=== PATIENT | female | born 1945 | race Caucasian/White ===

== ENCOUNTER → 2017-12-24 13:57 | Outpatient (CLI) | payer MEDICARE, OTHER, SELFPAY ==
[2017-12-24 14:22] LABS: Hematocrit 39.6 % (37-47); Hemoglobin 12.6 g/dl (12.0-15.0); Mean Corp Hgb Conc 31.8 g/gl (32-36); Mean Corpuscular Hgb 31.4 pg (27.0-32.0); Mean Corpuscular Volume 98.8 fL (81-99); Mean Platelet Vol. 10.1 fl (6.2-12.0); Platelet Count 128 K/mm3 (150-450); RBC Distribution Width CV 14.3 % (11.6-14.6); RBC Distribution Width SD 51.6 fl (35.1-43.9); Red Blood Count 4.01 M/mm3 (4.2-5.4); White Blood Count 10.2 K/mm3 (4.4-11.0)
[2017-12-24 14:24] LABS: Scan Indicated on CBC? Y/N NO
[2017-12-24 14:30] LABS: Protein, Urine (Random) 16.4 mg/dL (<11.9); Protein:Creat Ratio 350 mg/g CRE (0-200)
[2017-12-24 14:52] LABS: Albumin, Serum 3.7 g/dL (3.2-5.0); BUN 35 mg/dL (7-18); BUN/Creat Ratio 19.4 RATIO (10-20); Calcium,Total 9.4 mg/dL (8.5-10.1); Chloride 102 mmol/L (98-107); EST Glomerular Filtration Rate 29 mL/min (>60); Est Glom Filt Rate - Afr Amer 35 mL/min (>60); Glucose 142 mg/dL (74-106); Phosphorus 3.1 mg/dL (2.5-4.9); Potassium 3.8 mmol/L (3.5-5.1); Sodium Level 140 mmol/L (136-145)
[2017-12-24 15:03] LABS: PTHIN 80.3 pg/mL (18.4-80.1); Vitamin D,25 Hydroxy 64.1 ng/mL (29.95-100.01)
== END ==
PROVIDERS: Family Provider Family Medicine; PCP Family Medicine; Visit Provider Internal Medicine Nephrology
DX: N18.3 Chronic kidney disease, stage 3 (moderate) (principal)
CPT/HCPCS: 36415; 80069; 82306; 82570; 83970; 84156; 85027

== ENCOUNTER 2018-06-09 04:29 | Emergency (ER) | payer MEDICARE, OTHER, SELFPAY ==
[2018-06-09 04:30] VITALS: BP 221/108; PULSE 55; RESP 16; TEMP 36.6; O2SAT 98; BMI 31.4
--- NOTE | 2018-06-09 05:03 | ED.VISSUMM ---
- ER Visit Summary Date of Service: 06/09/18 Chief Complaint: Nausea and mild abdominal pain History of Present Illness: The patient is a 73 F 3 of hypertension, renal insufficiency and CLL. Patient's had a prior appendectomy, cholecystectomy and hysterectomy. She states that she fell about a week ago primarily landing on her left hip. But since that time she has also had some mild upper abdominal discomfort associated with nausea. She denies any vomiting or diarrhea. She denies any dysuria. She denies any fever. She denies any black or bloody stools. She is on no blood thinners. Denies injuring her head on the fall. Denies any headache or neck pain. No chest pain. Physical Examination: Older female no acute distress. Initial blood pressure is elevated to 21/108. Afebrile. Pulse ox 90% on room air no signs of hypoxia. H EENT exam atraumatic. Pupils round reactive light. Normal speech. Neck nontender. No lymphadenopathy. Lungs clear to auscultation bilaterally. Heart regular rhythm rate about 60 no murmur. Chest wall nontender. Abdomen soft nondistended normal bowel sounds no peritoneal signs. No signs of trauma. She has mild epigastric tenderness. No Peck's or McBurney's point tenderness. Normal bowel sounds. No signs of abdominal trauma. Pelvic girdle intact. Patient is moving all 4 extremities. The neurovascular intact. There is no shortening or rotation of either hip. Neurologically she is awake and alert with no focal motor deficits. Test Results: CBC shows a white count 11.3. Hemoglobin 13. Platelet count of 130 patient has a history of low platelet counts. Chemistries unremarkable except a creatinine of 1.84. BUN of 41 consistent with dehydration. Gap of 11. Liver enzymes are normal. Lipase is normal at 314. CT abdomen and pelvis was obtained with IV contrast shows chronic pancreatic changes possibly consistent with chronic pancreatitis however she has never been diagnosed with pancreatitis. And has a normal lipase. Chronic renal cysts and renal atrophy. A calcified aorta. Really no acute processes. EKG shows atrial fibrillation with a heart rate of 45. She is on a beta-josh. Patient has never been told she has had A. fib. Troponin is normal. Emergency Department Course and Treatment: Patient will be treated with IV fluids and IV Zofran. Labs will be obtained. Treatment Plan: Patient is doing well on multiple repeat exams. Abdomen is benign. She denied discussed all of her test results. Her history is consistent with possibly a pancreatitis however she has never had and her lipase is normal I think that is extremely unlikely to be acute pancreatitis. She also has new onset or at least newly diagnosed A. fib however rate controlled due to her being on a beta-josh she can follow that up as an outpatient. Disposition: Discharge Impression: Acute abdominal pain with nausea of uncertain etiology Rule out chronic pancreatitis Atrial fibrillation not previously diagnosed History of CLL. This note was generated with [employer] dictation software. It may contain incorrect words, spelling, and punctuation that were not noted in review of the chart prior to signing ED Disposition - Plan for ED Patient: Chief Complaint: Nausea/Vomiting Referrals: Israel Bucio DO [Primary Care Provider] -
[2018-06-09] MEDS: 0.9% Normal Saline 1,000 ML 1000 ML IV (05:20)
[2018-06-09] MEDS: Ondansetron 4 MG/2 ML Vial IV (05:20)
[2018-06-09 05:37] LABS: Absolute Lymphocyte Count 5.41 X10^3/ul (0.83-4.51); Absolute Neutrophil Count 4.9 X10^3/uL (2.0-7.7); Basophil# 0.05 X10^3/uL; Basophil% 0.4 % (0-1); Differential Indicated SCAN CRITERIA MET; Eosinophil# 0.25 X10^3/uL; Eosinophils% 2.2 % (0-5); Hematocrit 41.2 % (37-47); Hemoglobin 13.4 g/dl (12.0-15.0); Lymphocyte # 5.41 X10^3/ul (4.0); Lymphocyte % 48.1 % (19-41); Mean Corp Hgb Conc 32.5 g/gl (32-36); Mean Corpuscular Hgb 32.7 pg (27.0-32.0); Mean Corpuscular Volume 100.5 fL (81-99); Mean Platelet Vol. 9.6 fl (6.2-12.0); Monocyte# 0.66 X10^3/uL; Monocyte% 5.9 % (0-10); Neutrophil # 4.85 X10^3/uL (2.7-7.7); Neutrophil % 43.1 % (47-70); POSITIVE COUNT NO; POSITIVE DIFFERENTIAL YES; POSITIVE MORPHOLOGY NO; Platelet Count 130 K/mm3 (150-450); RBC Distribution Width CV 13.8 % (11.6-14.6); RBC Distribution Width SD 50.4 fl (35.1-43.9); White Blood Count 11.3 K/mm3 (4.4-11.0)
[2018-06-09 06:01] LABS: Anisocytosis 1+; Macrocytosis 1+; Platelet Estimate SLT DEC (ADEQ)
[2018-06-09 06:04] LABS: AST(SGOT) 22 U/L (15-37); Alanine Aminotransfer ALT/SGPT 31 U/L (13-56); Albumin, Serum 3.6 g/dL (3.2-5.0); Alkaline Phosphatase 72 U/L (45-117); Anion Gap 11 (5-15); BUN 41 mg/dL (7-18); BUN/Creat Ratio 22.3 RATIO (10-20); Bilirubin, Direct 0.17 mg/dL (0.00-0.30); Calcium,Total 9.3 mg/dL (8.5-10.1); Chloride 103 mmol/L (98-107); Creatinine, Serum 1.84 mg/dL (0.55-1.02); EST Glomerular Filtration Rate 28 mL/min (>60); Est Glom Filt Rate - Afr Amer 34 mL/min (>60); Estimated Creatinine Clearance 25.69 ml/min; Globulin 3.4 g/dL (2.2-4.2); Glucose 127 mg/dL (74-106); Lipase 314 U/L (73-393); Potassium 3.6 mmol/L (3.5-5.1); Sodium Level 141 mmol/L (136-145)
--- NOTE | 2018-06-09 06:51 | ED.RN ---
DR DSOUZA NOTIFIED PT REQUESTING TO HAVE HER HEART CHECKED
[2018-06-09 07:29] VITALS: BP 194/70; PULSE 50; RESP 16; O2SAT 97
--- NOTE | 2018-06-09 07:45 | ED.DEP ---
ED Disposition - Plan for ED Patient: Disposition: Home or Assisted Living Chief Complaint: Nausea/Vomiting Instructions: ED Abdominal Pain Unkn Cause, ED Afib Prescriptions: Ondansetron [Zofran Odt] 4 mg PO Q4H PRN PRN #14 tab.rapdis PRN Reason: Nausea Referrals: Israel Bucio, [Primary Care Provider] - As soon as possible Additional Instructions: Call follow-up your primary care physician for further evaluation of this abdominal pain. We do not have a specific cause. You may need to see a media planner / buyer or have upper endoscopy performed. Zofran as needed for nausea. Incidentally we found that you have an abnormal heart rhythm: Atrial fibrillation. You can follow this up as an outpatient with Dr. Lloyd King 1 of [facility] splitting machine feeder. Continue your current medications.
--- NOTE | 2018-06-09 07:49 | DCINST.ED_ITS ---
ED Disposition - Plan for ED Patient: Disposition: Home or Assisted Living Chief Complaint: Nausea/Vomiting Instructions: ED Abdominal Pain Unkn Cause, ED Afib Prescriptions: Ondansetron [Zofran Odt] 4 mg PO Q4H PRN PRN #14 tab.rapdis PRN Reason: Nausea Referrals: Israel Bucio, [Primary Care Provider] - As soon as possible Additional Instructions: Call follow-up your primary care physician for further evaluation of this abdominal pain. We do not have a specific cause. You may need to see a distribution designer or have upper endoscopy performed. Zofran as needed for nausea. Incidentally we found that you have an abnormal heart rhythm: Atrial fibrillation. You can follow this up as an outpatient with Dr. Lloyd King 1 of [facility] stonemason supervisor. Continue your current medications.
[2018-06-09 08:01] VITALS: PULSE 49; RESP 16; O2SAT 97
[2018-06-10 15:08] LABS: Pathologist Review Reviewed
== END 2018-06-09 08:06 | disposition home or self-care (01) ==
PROVIDERS: Emergency Provider Emergency Medicine; Family Provider Family Medicine; PCP Family Medicine
DX: R10.13 Epigastric pain (principal); R11.0 Nausea; I48.91 Unspecified atrial fibrillation; I10 Essential (primary) hypertension; C91.10 Chronic lymphocytic leukemia of B-cell type not having achieved remission; N28.9 Disorder of kidney and ureter, unspecified; Z90.49 Acquired absence of other specified parts of digestive tract; Z90.710 Acquired absence of both cervix and uterus; Z79.899 Other long term (current) drug therapy
CPT/HCPCS: 71045; 74177; 80048; 80076; 83690; 84484; 85025; 93005; 96361; 96374; 99284; J7030; Q9967; A4216

== ENCOUNTER → 2018-07-31 08:43 | Outpatient (CLI) | payer MEDICARE, OTHER, SELFPAY ==
--- NOTE | 2018-07-31 08:47 | ECHOD_ITS ---
Reason For Study: Afib, Aflutter Procedure This was a 2D Doppler, Color Flow transthoracic echocardiogram. The exam was of fair technical quality due to diminished acoustic windows. Exam performed in department. Left Ventricle Normal LV size. Left ventricular systolic function is normal. The estimated ejection fraction is 60 %. Diastolic function is indeterminate. No regional wall motion abnormalities noted. Right Ventricle Normal RV size. Normal systolic function. Atria The left atrium is severely enlarged. The right atrium is moderately enlarged. No doppler evidence for ASD. Mitral Valve There is no mitral annular calcification. Mild diffuse mitral valve thickening. The mitral papillary muscle appears thickened and/or calcified. Moderate (2+) eccentric mitral valve insufficiency. Tricuspid Valve Normal tricuspid valve. Mild to moderate (1-2+) tricuspid valve insufficiency. Right ventricular systolic pressure estimated to be 36 mmHg. Aortic Valve Trisinus/trileaflet aortic valve. Mild focal aortic valve calcification. Pulmonic Valve The pulmonic valve is not well visualized. Trivial pulmonic valve insufficiency. Great Vessels Normal sized aortic root. Pericardium/Pleural No pericardial effusion. MMode/2D Measurements & Calculations LVIDd: 5.5 cm IVSd: 1.2 cm Ao root diam: 3.2 cm LVIDs: 3.4 cm LVPWd: 1.3 cm RVDd: 4.8 cm FS: 37.0 % LAV(MOD-bp): 159.9 ml LVAd ap4: 26.7 cm2 SV(MOD-sp4): 66.0 ml LAV(MOD-bp) Indexed: 80.1 ml/m2 EDV(MOD-sp4): 86.7 ml LAV(MOD-sp2): 160.6 ml EDV(sp4-el): 84.6 ml LAV(MOD-sp4): 150.5 ml LVAs ap4: 11.6 cm2 ESV(MOD-sp4): 20.7 ml ESV(sp4-el): 19.4 ml EF(MOD-sp4): 76.1 % EF(sp4-el): 77.0 % SV(sp4-el): 65.1 ml LA A4 area: 38.0 cm2 RA A4 area: 25.9 cm2 Doppler Measurements & Calculations MV E max emma: 86.3 cm/sec Ao V2 max: 143.7 cm/sec LV V1 max: 85.9 cm/sec Ao max P.3 mmHg LV V1 max P.0 mmHg Ao V2 mean: 93.4 cm/sec Ao mean P.9 mmHg Ao V2 VTI: 32.4 cm PA V2 max: 68.8 cm/sec TR max emma: 286.8 cm/sec TR max P.9 mmHg Interpretation Summary Left ventricular systolic function is normal. The estimated ejection fraction is 60 %. The left atrium is severely enlarged. The right atrium is moderately enlarged. Mild diffuse mitral valve thickening. The mitral papillary muscle appears thickened and/or calcified. Moderate (2+) eccentric mitral valve insufficiency. Mild to moderate (1-2+) tricuspid valve insufficiency. Mild focal aortic valve calcification. Trivial pulmonic valve insufficiency. Right ventricular systolic pressure estimated to be 36 mmHg. Diastolic function is indeterminate. Ordering Physician: Lloyd King Referring Physician: Israel Bucio Performed By: Abi Osullivan, SIMIN, RVT
== END ==
PROVIDERS: Family Provider Family Medicine; PCP Family Medicine; Referring Provider Internal Medicine Cardiovascular Disease; Visit Provider Internal Medicine Cardiovascular Disease
DX: I48.1 Persistent atrial fibrillation (principal)
CPT/HCPCS: 93306

== ENCOUNTER → 2018-08-11 16:22 | Outpatient (CLI) | payer MEDICARE, OTHER, SELFPAY ==
[2018-08-11 17:13] LABS: Prothrombin Time (Protime)PT. 13.2 SECONDS (11.7-14.9)
== END ==
PROVIDERS: Family Provider Family Medicine; PCP Family Medicine; Referring Provider Internal Medicine Cardiovascular Disease; Visit Provider Internal Medicine Cardiovascular Disease
DX: I48.91 Unspecified atrial fibrillation (principal)
CPT/HCPCS: 36415; 85610

== ENCOUNTER 2018-08-20 16:23 | Outpatient (RCR) | payer MEDICARE, OTHER, SELFPAY ==
[2018-08-20 17:46] LABS: International Normalized Ratio 1.2; Prothrombin Time (Protime)PT. 15.4 SECONDS (11.7-14.9)
== END 2018-08-20 18:00 | disposition home or self-care (01) ==
LOC: LAB 16:23
PROVIDERS: Family Provider Family Medicine; PCP Family Medicine; Referring Provider Internal Medicine Cardiovascular Disease; Visit Provider Internal Medicine Cardiovascular Disease
DX: I48.91 Unspecified atrial fibrillation (principal); I10 Essential (primary) hypertension; Z79.01 Long term (current) use of anticoagulants
CPT/HCPCS: 36415; 85610

== ENCOUNTER 2018-09-08 16:27 | Outpatient (RCR) | payer MEDICARE, OTHER, SELFPAY ==
[2018-08-31 11:28] LABS: International Normalized Ratio 1.4
[2018-09-08 17:22] LABS: International Normalized Ratio 1.4; Prothrombin Time (Protime)PT. 16.7 SECONDS (11.7-14.9)
== END 2018-09-25 10:19 | disposition home or self-care (01) ==
LOC: LAB 16:27
PROVIDERS: Family Provider Family Medicine; PCP Family Medicine; Referring Provider Internal Medicine Cardiovascular Disease; Visit Provider Internal Medicine Cardiovascular Disease
DX: I48.91 Unspecified atrial fibrillation (principal); I10 Essential (primary) hypertension; Z79.01 Long term (current) use of anticoagulants
CPT/HCPCS: 36415; 85610

== ENCOUNTER → 2018-09-30 15:16 | Outpatient (CLI) | payer MEDICARE, OTHER, SELFPAY ==
[2018-09-21 11:08] VITALS: BMI 30.6
[2018-09-30 15:43] LABS: International Normalized Ratio 1.3; Prothrombin Time (Protime)PT. 16.1 SECONDS (11.7-14.9)
== END ==
PROVIDERS: Family Provider Family Medicine; PCP Family Medicine; Referring Provider Internal Medicine Cardiovascular Disease; Visit Provider Internal Medicine Cardiovascular Disease
DX: I48.91 Unspecified atrial fibrillation (principal); I10 Essential (primary) hypertension; Z79.01 Long term (current) use of anticoagulants
CPT/HCPCS: 36415; 85610

== ENCOUNTER → 2018-10-17 11:36 | Outpatient (CLI) | payer MEDICARE, OTHER, SELFPAY ==
[2018-10-05 09:11] VITALS: BMI 30.6
[2018-10-17 12:15] LABS: Absolute Lymphocyte Count 3.93 X10^3/ul (0.83-4.51); Absolute Neutrophil Count 3.3 X10^3/uL (2.0-7.7); Basophil# 0.02 X10^3/uL; Basophil% 0.3 % (0-1); Eosinophils% 1.3 % (0-5); Hematocrit 35.8 % (37-47); Hemoglobin 11.6 g/dl (12.0-15.0); Lymphocyte # 3.93 X10^3/ul (4.0); Lymphocyte % 50.6 % (19-41); Mean Corp Hgb Conc 32.4 g/gl (32-36); Mean Corpuscular Hgb 31.8 pg (27.0-32.0); Mean Corpuscular Volume 98.1 fL (81-99); Mean Platelet Vol. 8.4 fl (6.2-12.0); Monocyte# 0.38 X10^3/uL; Monocyte% 4.9 % (0-10); Neutrophil # 3.32 X10^3/uL (2.7-7.7); Neutrophil % 42.8 % (47-70); Platelet Count 105 K/mm3 (150-450); RBC Distribution Width CV 14.1 % (11.6-14.6); RBC Distribution Width SD 50.3 fl (35.1-43.9); Red Blood Count 3.65 M/mm3 (4.2-5.4); White Blood Count 7.8 K/mm3 (4.4-11.0)
[2018-10-17 12:16] LABS: POSITIVE COUNT NO; POSITIVE DIFFERENTIAL NO; POSITIVE MORPHOLOGY NO
[2018-10-17 12:32] LABS: ALB/GLOB Ratio 1.2 RATIO (0.9-2.4); AST(SGOT) 32 U/L (15-37); Alanine Aminotransfer ALT/SGPT 31 U/L (13-56); Albumin, Serum 3.6 g/dL (3.2-5.0); Alkaline Phosphatase 68 U/L (45-117); Anion Gap 9 (5-15); BUN 42 mg/dL (7-18); BUN/Creat Ratio 23.3 RATIO (10-20); Calcium,Total 9.1 mg/dL (8.5-10.1); Chloride 104 mmol/L (98-107); EST Glomerular Filtration Rate 29 mL/min (>60); Est Glom Filt Rate - Afr Amer 35 mL/min (>60); Glucose 107 mg/dL (74-106); LDH 215 U/L (84-246); Potassium 3.8 mmol/L (3.5-5.1); Protein, Total 6.6 g/dL (6.4-8.2); Sodium Level 141 mmol/L (136-145); Uric Acid 7.8 mg/dL (2.6-6.0)
== END ==
PROVIDERS: Internal Medicine Medical Oncology; Family Provider Family Medicine; PCP Family Medicine; Referring Provider Internal Medicine Cardiovascular Disease; Visit Provider Internal Medicine Cardiovascular Disease
DX: C91.10 Chronic lymphocytic leukemia of B-cell type not having achieved remission (principal)
CPT/HCPCS: 80053; 83615; 84550; 85025

== ENCOUNTER → 2018-10-23 11:38 | Outpatient (CLI) | payer MEDICARE, OTHER, SELFPAY ==
[2018-10-05 09:11] VITALS: BMI 30.6
[2018-10-23 12:04] LABS: International Normalized Ratio 1.4; Prothrombin Time (Protime)PT. 17.5 SECONDS (11.7-14.9)
== END ==
PROVIDERS: Family Provider Family Medicine; PCP Family Medicine; Referring Provider Internal Medicine Cardiovascular Disease; Visit Provider Internal Medicine Cardiovascular Disease
DX: I48.91 Unspecified atrial fibrillation (principal); Z79.01 Long term (current) use of anticoagulants
CPT/HCPCS: 36415; 85610

== ENCOUNTER → 2018-10-30 11:07 | Outpatient (CLI) | payer MEDICARE, OTHER, SELFPAY ==
[2018-10-05 09:11] VITALS: BMI 30.6
[2018-10-30 11:40] LABS: Absolute Lymphocyte Count 3.98 X10^3/ul (0.83-4.51); Absolute Neutrophil Count 3.7 X10^3/uL (2.0-7.7); Basophil# 0.02 X10^3/uL; Basophil% 0.2 % (0-1); Eosinophil# 0.15 X10^3/uL; Eosinophils% 1.8 % (0-5); Hematocrit 37.5 % (37-47); Hemoglobin 12.2 g/dl (12.0-15.0); Lymphocyte # 3.98 X10^3/ul (4.0); Lymphocyte % 47.8 % (19-41); Mean Corp Hgb Conc 32.5 g/gl (32-36); Mean Corpuscular Hgb 32.4 pg (27.0-32.0); Mean Corpuscular Volume 99.5 fL (81-99); Mean Platelet Vol. 8.7 fl (6.2-12.0); Monocyte# 0.42 X10^3/uL; Neutrophil # 3.74 X10^3/uL (2.7-7.7); Neutrophil % 45.1 % (47-70); Platelet Count 107 K/mm3 (150-450); RBC Distribution Width CV 13.8 % (11.6-14.6); RBC Distribution Width SD 49.1 fl (35.1-43.9); Red Blood Count 3.77 M/mm3 (4.2-5.4); White Blood Count 8.3 K/mm3 (4.4-11.0)
[2018-10-30 11:42] LABS: POSITIVE COUNT NO; POSITIVE DIFFERENTIAL NO; POSITIVE MORPHOLOGY NO
[2018-10-30 11:49] LABS: Albumin, Serum 3.5 g/dL (3.2-5.0); BUN 34 mg/dL (7-18); BUN/Creat Ratio 20.6 RATIO (10-20); Calcium,Total 9.1 mg/dL (8.5-10.1); Chloride 101 mmol/L (98-107); Creatinine, Serum 1.65 mg/dL (0.55-1.02); EST Glomerular Filtration Rate 32 mL/min (>60); Est Glom Filt Rate - Afr Amer 39 mL/min (>60); Glucose 119 mg/dL (74-106); Phosphorus 3.1 mg/dL (2.5-4.9); Potassium 4.1 mmol/L (3.5-5.1); Sodium Level 139 mmol/L (136-145)
[2018-10-30 11:58] LABS: Protein, Urine (Random) 12.5 mg/dL (<11.9); Protein:Creat Ratio 397 mg/g CRE (0-200)
[2018-10-30 12:01] LABS: PTHIN 79.3 pg/mL (18.4-80.1)
[2018-10-30 12:10] LABS: Vitamin D,25 Hydroxy 42.2 ng/mL (29.95-100.01)
== END ==
PROVIDERS: Family Provider Family Medicine; PCP Family Medicine; Referring Provider Internal Medicine Nephrology; Visit Provider Internal Medicine Nephrology
DX: N18.3 Chronic kidney disease, stage 3 (moderate) (principal)
CPT/HCPCS: 36415; 80069; 82306; 82570; 83970; 84156; 85025

== ENCOUNTER → 2018-11-10 11:49 | Outpatient (CLI) | payer MEDICARE, OTHER, SELFPAY ==
[2018-10-05 09:11] VITALS: BMI 30.6
[2018-11-10 12:10] LABS: International Normalized Ratio 1.7; Prothrombin Time (Protime)PT. 20.1 SECONDS (11.7-14.9)
== END ==
PROVIDERS: Family Provider Family Medicine; PCP Family Medicine; Visit Provider Internal Medicine Cardiovascular Disease
DX: I48.91 Unspecified atrial fibrillation (principal); Z79.01 Long term (current) use of anticoagulants
CPT/HCPCS: 36415; 85610

== ENCOUNTER → 2018-11-23 11:14 | Outpatient (CLI) | payer MEDICARE, OTHER, SELFPAY ==
[2018-10-05 09:11] VITALS: BMI 30.6
[2018-11-23 11:59] LABS: International Normalized Ratio 1.9; Prothrombin Time (Protime)PT. 21.9 SECONDS (11.7-14.9)
== END ==
PROVIDERS: Family Provider Family Medicine; PCP Family Medicine; Referring Provider Internal Medicine Cardiovascular Disease; Visit Provider Internal Medicine Cardiovascular Disease
DX: I48.91 Unspecified atrial fibrillation (principal); Z79.01 Long term (current) use of anticoagulants
CPT/HCPCS: 36415; 85610

== ENCOUNTER → 2018-12-07 10:20 | Outpatient (CLI) | payer MEDICARE, OTHER, SELFPAY ==
[2018-10-05 09:11] VITALS: BMI 30.6
[2018-12-07 10:52] LABS: International Normalized Ratio 1.9; Prothrombin Time (Protime)PT. 21.8 SECONDS (11.7-14.9)
== END ==
PROVIDERS: Family Provider Family Medicine; PCP Family Medicine; Visit Provider Internal Medicine Cardiovascular Disease
DX: I48.91 Unspecified atrial fibrillation (principal); Z79.01 Long term (current) use of anticoagulants
CPT/HCPCS: 36415; 85610

== ENCOUNTER → 2018-12-21 11:00 | Outpatient (CLI) | payer MEDICARE, OTHER, SELFPAY ==
[2018-10-05 09:11] VITALS: BMI 30.6
[2018-12-21 11:58] LABS: International Normalized Ratio 1.7; Prothrombin Time (Protime)PT. 20.1 SECONDS (11.7-14.9)
== END ==
PROVIDERS: Family Provider Family Medicine; PCP Family Medicine; Referring Provider Internal Medicine Cardiovascular Disease; Visit Provider Internal Medicine Cardiovascular Disease
DX: I48.91 Unspecified atrial fibrillation (principal); Z79.01 Long term (current) use of anticoagulants
CPT/HCPCS: 36415; 85610

== ENCOUNTER 2018-12-29 04:56 | Emergency (ER) | payer MEDICARE, OTHER, SELFPAY ==
[2018-10-05 09:11] VITALS: BMI 30.6
[2018-12-29 04:57] VITALS: BP 208/88; PULSE 55; RESP 16; TEMP 36.8; O2SAT 98; BMI 29.9
--- NOTE | 2018-12-29 05:15 | ED.VIS.GEN ---
History of Present Illness Chief Complaint: Rash Informant: Patient Onset: Weeks - 1 Context: Gradual Onset Timing: Continuous Quality: arm is achy, but rash is not painful Location: RUE Current Severity: Moderate - rash, not pain Maximum Severity: Moderate Worsened by: nothing in particular Relieved by: nothing Associated Symptoms: no associated systemic sx or fevers. Narrative: She states she saw her PCP last week for a respiratory illness that was diagnosed as bronchopneumonia, she had been on a Z-Bill that did not get her better, so she was prescribed Levaquin. The day after starting Levaquin she developed signs of this rash on her right upper extremity. She finished the Levaquin 4-5 days ago, the rash has progressively worsened, gradually. It is the worst on her lateral right upper arm and shoulder, progresses down to the antecubital fossa and there are a couple blisters on her thumb and thenar eminence. She states the rash itself is not painful but she has some deep achy discomfort in her right upper arm. There is no chest discomfort or shortness of breath, she has no numbness or tingling distally in the extremity, she can move her arm around without any significant discomfort. States she has never had shingles before. She is on Coumadin for A. fib. She has no lesions in her mouth, no bleeding from her gums, no hematuria, or bright red blood per rectum. She had a fever one day when she had a respiratory illness, but that is better now and she has had no fever since that she has had this rash. She was also put on some prednisone at one point during the respiratory illness, she is still taking that and is tapering. No other new medications, no injuries to the arm, the rash does not exist anywhere else that she knows of except for one small spot on her mid forehead. - Past Medical History (1) Atrial fibrillation Status: Chronic (2) CLL (chronic lymphocytic leukemia) Status: Chronic (3) Hypertension Status: Chronic Past Medical History - Allergies and Home Meds Allergies/Adverse Reactions: Allergies erythromycin base [Erythromycin Base] Adverse Reaction (Intermediate, Verified 10/05/18 09:04) Unknown Penicillins Adverse Reaction (Intermediate, Verified 10/05/18 09:04) Rash Primary Care Physician: Israel Bucio DO [Primary Care Provider] - 3-5 Days Lives: With Family Smoking Status: Never smoker Review of Systems General: Denies: Chills, Fever, Malaise, Sweats Cardiovascular: Denies: Chest pain, Palpitations Respiratory: Denies: Dyspnea, Cough, Dyspnea on exertion Gastrointestinal: Denies: Abdominal pain, Nausea, Vomiting, Diarrhea, Melena, Hematochezia Genitourinary: Denies: Dysuria, Hematuria, Frequency Musculoskeletal: Reports: Extremity Pain. Denies: Arthralgias, Neck pain, Back pain Skin: Reports: Rash. Denies: Wounds Neurological: Denies: Headache, Weakness, Parasthesia, Numbness Physical Exam Vital Signs/Narrative: Vital Signs Temp Pulse Resp BP Pulse Ox 12/29/18 04:57 98.3 F 55 L 16 208/88 H 98 Inital Vital Signs reviewed: Yes General: Well nourished, Well developed, No Acute Distress Head: Normocephalic, Atraumatic Eyes: Perrl, EOMI Neck: Supple, Nontender, No JVD Extremities: Nontender, No edema, - - All compartments are soft. FROM throughout all joints of BUE. Skin: No Trauma, Rash - Large patches of blanching erythema, containing hemorrhagic bullae on the right upper extremity -- laterally about the shoulder and upper arm, progressing to the AC fossa and volar forearm, but then only at the thenar eminence and thumb in the hand. None of the lesions are tender, although the upper arm is mildly tender w/ deep palpation. bullae appear to follow either C5, C6 dermatomes, or both, given probable overlap. Small patch of nontender erythema w/o bullae or blisters near the midline in the mid-neck posteriorly. No lesions on left side. Single small superficial pinpoint-sized lesion that appears like an unroofed papule, mid-forehead w/ no other facial lesions. Neurological: Alert, Oriented x3, Cranial nerves II-XII grossly intact, Normal Strength, Normal Sensation, Normal Gait Psychological: Normal affect, Normal Mood Diagnostic/Tx/Re-eval - Medical Decision Making Other than chronic renal insufficiency, her labs are unremarkable. She has relative thrombocytopenia with a platelet count of 106,000. The bullae are hemorrhagic probably because of her being on Coumadin; her INR is therapeutic at 2.2. I suspect the etiology of the rash is zoster/shingles. She had chickenpox when she was little, she has never had shingles before. She is currently on a prednisone taper, which may be helping to limit the pain. She states the pain is not very bad right now and she declines analgesics right now, but accepts an offer for a prescription analgesic to use at home as needed. She is way outside of the window for treatment with acyclovir or valacyclovir. Advised to continue the prednisone taper until finished, as prescribed. I think she can follow-up as an outpatient for this. Of note, there are no intraoral/mucosal lesions. Her Nikolsky sign is negative. I do not think this is Dobbs-Roly's or a variant, given that the rash is dermatomal and relatively focal. With regards to her blood pressure, which was 208/80 at triage, it is now 176/88. She is asymptomatic from this except for some mild facial and hands flushing that her daughter noticed. That is less prominent now. I do not think we need to treat her blood pressure, but she is now excepting a dose of pain medication, which may be why her pressure is up. She will need to follow-up and have that rechecked which we discussed. ED Disposition - Plan for ED Patient: Disposition: Home or Assisted Living Diagnosis: Shingles, Accelerated hypertension Instructions: ED Shingles Prescriptions: Hydrocodone Bitart/Apap 5-325 [[place] 5MG-325MG] 1 tab PO Q4H PRN PRN 2 Days #10 tab PRN Reason: Pain Referrals: Israel Bucio DO [Primary Care Provider] - 3-5 Days Additional Instructions: Continue your prednisone taper as prescribed, until finished.
[2018-12-29 05:37] LABS: Absolute Lymphocyte Count 4.03 X10^3/ul (0.83-4.51); Absolute Neutrophil Count 4.3 X10^3/uL (2.0-7.7); Basophil# 0.03 X10^3/uL; Basophil% 0.3 % (0-1); Eosinophil# 0.05 X10^3/uL; Eosinophils% 0.6 % (0-5); Hematocrit 41.4 % (37-47); Hemoglobin 13.5 g/dl (12.0-15.0); Lymphocyte # 4.03 X10^3/ul (4.0); Lymphocyte % 45.5 % (19-41); Mean Corp Hgb Conc 32.6 g/gl (32-36); Mean Corpuscular Hgb 31.8 pg (27.0-32.0); Mean Corpuscular Volume 97.6 fL (81-99); Mean Platelet Vol. 8.8 fl (6.2-12.0); Monocyte# 0.48 X10^3/uL; Monocyte% 5.4 % (0-10); Neutrophil # 4.25 X10^3/uL (2.7-7.7); Platelet Count 106 K/mm3 (150-450); RBC Distribution Width CV 14.9 % (11.6-14.6); RBC Distribution Width SD 52.4 fl (35.1-43.9); Red Blood Count 4.24 M/mm3 (4.2-5.4); White Blood Count 8.9 K/mm3 (4.4-11.0)
[2018-12-29 05:40] LABS: POSITIVE COUNT NO; POSITIVE DIFFERENTIAL NO; POSITIVE MORPHOLOGY NO
[2018-12-29 05:43] LABS: Anion Gap 10 (5-15); BUN 39 mg/dL (7-18); BUN/Creat Ratio 26.5 RATIO (10-20); Calcium,Total 9.1 mg/dL (8.5-10.1); Chloride 97 mmol/L (98-107); Creatinine, Serum 1.47 mg/dL (0.55-1.02); EST Glomerular Filtration Rate 37 mL/min (>60); Est Glom Filt Rate - Afr Amer 45 mL/min (>60); Estimated Creatinine Clearance 30.96 ml/min; Glucose 126 mg/dL (74-106); Potassium 3.5 mmol/L (3.5-5.1); Sodium Level 138 mmol/L (136-145)
[2018-12-29 05:49] LABS: International Normalized Ratio 2.2; Prothrombin Time (Protime)PT. 24.8 SECONDS (11.7-14.9)
[2018-12-29] MEDS: HYDROcodone Bitartrate/Apap 5/325 Tablet PO (06:20)
[2018-12-29 06:23] VITALS: BP 170/88; RESP 16
[2018-12-29 06:24] VITALS: BP 170/88
== END 2018-12-29 06:24 | disposition home or self-care (01) ==
PROVIDERS: Emergency Provider Emergency Medicine; Family Provider Family Medicine; PCP Family Medicine
DX: B02.9 Zoster without complications (principal); I48.91 Unspecified atrial fibrillation; I10 Essential (primary) hypertension; C91.10 Chronic lymphocytic leukemia of B-cell type not having achieved remission; Z79.01 Long term (current) use of anticoagulants
CPT/HCPCS: 36415; 80048; 85025; 85610; 99283

== ENCOUNTER → 2019-01-04 09:08 | Outpatient (CLI) | payer MEDICARE, OTHER, SELFPAY ==
[2018-12-29 04:57] VITALS: BMI 29.9
[2019-01-04 09:35] LABS: International Normalized Ratio 2.8; Prothrombin Time (Protime)PT. 29.9 SECONDS (11.7-14.9)
== END ==
PROVIDERS: Family Provider Family Medicine; PCP Family Medicine; Referring Provider Internal Medicine Cardiovascular Disease; Visit Provider Internal Medicine Cardiovascular Disease
DX: I48.91 Unspecified atrial fibrillation (principal); Z79.01 Long term (current) use of anticoagulants
CPT/HCPCS: 36415; 85610

== ENCOUNTER → 2019-01-11 10:19 | Outpatient (CLI) | payer MEDICARE, OTHER, SELFPAY ==
[2019-01-04 09:38] VITALS: BMI 30.2
[2019-01-11 11:04] LABS: International Normalized Ratio 2.9; Prothrombin Time (Protime)PT. 30.7 SECONDS (11.7-14.9)
== END ==
PROVIDERS: Family Provider Family Medicine; PCP Family Medicine; Referring Provider Internal Medicine Cardiovascular Disease; Visit Provider Internal Medicine Cardiovascular Disease
DX: I48.91 Unspecified atrial fibrillation (principal); Z79.01 Long term (current) use of anticoagulants
CPT/HCPCS: 36415; 85610

== ENCOUNTER 2019-01-17 22:16 | Inpatient (IN) | payer MEDICARE, OTHER, SELFPAY ==
[2019-01-04 09:38] VITALS: BMI 30.2
--- NOTE | 2019-01-17 00:10 | RAD_ITS ---
HISTORY: C/O FLUID RETENTION IN BILAT LOWER EXTREMITIES AND RIGHT ARM Tamp; HAND. REPORTS + SHINGLES IN RIGHT ARM. RECENTLY HAD FUROSEMIDE INCREASED, #23 WT GAIN OVER 2 WEEKSHX OF AFIB AND HTN EXAM: XR Chest 2 Views: COMPARISON: None FINDINGS: LINES/DEVICES: None. LUNGS: Radiographically clear. No consolidation, edema or effusion. No pneumothorax. Persistent elevation anterior-medial aspect right hemidiaphragm. MEDIASTINUM AND CARDIOVASCULAR STRUCTURES: Cardiac silhouette is enlarged. Central airways and mediastinal contour are unremarkable. BONES AND SOFT TISSUES: No acute findings. Degenerative changes. Chronic appearing mid thoracic vertebral body compression fracture. Osteopenia. RAD/Chest PA and Lateral IMPRESSION: Cardiomegaly. No radiographic evidence of acute cardiopulmonary disease. at 0116 Reported and signed by: Aneudy Eddy MD Electronically Signed: Aneudy Eddy, at 1:15 EDT Tel , Service support ,
[2019-01-17 22:17] VITALS: BP 150/82; PULSE 61; RESP 15; TEMP 36.7; BMI 35.5
--- NOTE | 2019-01-17 23:30 | EKG12_ITS ---
Test Reason : EDEMA Blood Pressure : / mmHG Vent. Rate : 054 BPM Atrial Rate : 357 BPM P-R Int : 000 ms QRS Dur : 094 ms QT Int : 468 ms P-R-T Axes : 000 045 002 degrees QTc Int : 443 ms Atrial fibrillation with slow ventricular response Septal infarct (cited on or before 09-JUN-2018), age undetermined Nonspecific ST/T Wave Abnormality Abnormal ECG Confirmed by JOSEPH CHAN, RAJ ([id number]), science editor MONICA CRYSTAL ([id number]) on 01/20/2019 1:45:29 PM Referred By: Johnny Romeo Confirmed By:RAJ RUIZ MD
--- NOTE | 2019-01-17 23:35 | ED.DCSUM_ITS ---
History of Present Illness Chief Complaint: Edema Narrative: Stated that her doctor told her to come into the ER if she continued to have swelling in her legs. Patient stated she has had a history of chronic edema in her lower extremities but over the last 3 weeks is gotten significantly worse. Patient stated she is gained over 20 pounds in the last 3 weeks. She recently saw her doctor in the office on Friday and had her Lasix doubled to 40 mg twice a day. She is also on hydrochlorothiazide 12.5. This was decreased to what she was taking 25 prior to increase her Lasix. The patient stated she has no history of CHF. She does have atrial fibrillation that was diagnosed at the end of last year. She is on Coumadin for that. She denies any shortness of breath or chest pain. The patient stated that she is dealing with shingles in her right upper extremity which is caused a significant amount of pain and numbness in her arm. She is also having some swelling in her arm from the shingles. It is been almost a month dealing with that. That has not changed much from her baseline. Current severity is moderate. No history of ID in the past. She does have history of CLL. - Past Medical History (1) Atrial fibrillation Status: Chronic (2) CLL (chronic lymphocytic leukemia) Status: Chronic (3) Hypertension Status: Chronic Past Medical History - Allergies and Home Meds Allergies/Adverse Reactions: Allergies erythromycin base [Erythromycin Base] Adverse Reaction (Intermediate, Verified 01/04/19 09:44) Unknown Penicillins Adverse Reaction (Intermediate, Verified 01/04/19 09:44) Rash Primary Care Physician: Israel Bucio DO [Primary Care Provider] - Prior records reviewed: Yes Surgical History: - - Viewed Lives: With Family Smoking Status: Never smoker Alcohol: None Drugs: None Review of Systems General: Denies: Chills, Fever, Sweats Eyes: Denies: Visual changes - bilaterally, Diplopia ENT: Denies: Rhinorrhea, Sore throat Cardiovascular: Denies: Chest pain, Palpitations Respiratory: Denies: Dyspnea, Cough, Dyspnea on exertion Gastrointestinal: Denies: Abdominal pain, Nausea, Vomiting, Diarrhea, Melena, Hematochezia Genitourinary: Denies: Dysuria, Hematuria, Frequency Musculoskeletal: Reports: Extremity Pain - Upper extremity secondary to shingles. Denies: Back pain Skin: Reports: Rash - Goals rash. Denies: Wounds Neurological: Reports: Weakness. Denies: Headache, Numbness Physical Exam Vital Signs/Narrative: Vital Signs Temp Pulse Resp BP 01/17/19 22:17 98.0 F 61 15 150/82 H General: Well nourished, Well developed, No Acute Distress Head: Normocephalic, Atraumatic Eyes: Perrl, EOMI ENT: Moist mucous membranes, No rhinorrhea Neck: Supple, Nontender Cardiovascular: Regular rate, Regular rhythm, No murmurs Respiratory: No distress, CTA bilaterally, Chest nontender Abdomen: Soft, Nontender, Normal bowel sounds. Negative for: Nondistended - Obese abdomen. No fluid wave. Positive bruising from previous fall on the right side. No tenderness. Back: Nontender, Normal Inspection Extremities: Nontender, Edema - Left lower extremity edema from the knees downwards. Very mild pitting. Negative for: No edema Skin: Normal color, No rash, - - shingles breakout to the right upper extremity with positive scaling and redness and edema Neurological: Alert, Oriented x3, Cranial nerves II-XII grossly intact, Normal Strength, Normal Sensation Psychological: Normal affect, Normal Mood Diagnostic/Tx/Re-eval 01/17/19 00:10 Chest PA and Lateral [RAD] Stat Laboratory Results 01/17/19 01/17/19 01/17/19 23:05 23:52 23:52 WBC 12.1 H RBC 3.16 L Hgb 10.4 L Hct 30.6 L MCV 96.8 MCH 32.9 H MCHC 34.0 RDW 15.4 H RDW Differential 50.5 H Plt Count 147 L MPV 8.8 Immature Gran % (Auto) 0.200 Neut % (Auto) 55.6 Lymph % (Auto) 37.4 [place] % (Auto) 5.6 Eos % (Auto) 1.0 Baso % (Auto) 0.2 Absolute Neuts (auto) 6.7 Absolute Lymphs (auto) 4.51 Total Counted Not Reportable PT 30.5 H INR 2.9 Sodium Potassium Chloride Carbon Dioxide Anion Gap BUN Creatinine Estim Creat Clear Calc Est GFR (MDRD) Af Amer Est GFR (MDRD) Non-Af BUN/Creatinine Ratio Glucose Calcium Total Bilirubin AST ALT Alkaline Phosphatase Troponin I B-Natriuretic Peptide Total Protein Albumin Globulin Albumin/Globulin Ratio Urine Color Yellow Urine Clarity Clear Urine pH 6.5 Ur Specific [place] 1.010 Urine Protein Negative Urine Glucose (UA) Normal Urine Ketones Negative Urine Occult Blood Negative Urine Nitrite Negative Urine Bilirubin Negative Urine Urobilinogen Normal Ur Leukocyte Esterase 500 H Urine RBC 0-5 SEEN Urine WBC 5-10 SEEN Ur Squamous Epith Cells 0-5 SEEN Urine Bacteria 0 SEEN Urine Mucus 0 SEEN 01/17/19 01/17/19 23:52 23:52 WBC RBC Hgb Hct MCV MCH MCHC RDW RDW Differential Plt Count MPV Immature Gran % (Auto) Neut % (Auto) Lymph % (Auto) [place] % (Auto) Eos % (Auto) Baso % (Auto) Absolute Neuts (auto) Absolute Lymphs (auto) Total Counted PT INR Sodium 122 L Potassium 3.4 L Chloride 83 L Carbon Dioxide 31.0 Anion Gap 8 BUN 28 H Creatinine 1.94 H Estim Creat Clear Calc 23.46 Est GFR (MDRD) Af Amer 32 L Est GFR (MDRD) Non-Af 27 L BUN/Creatinine Ratio 14.4 Glucose 121 H Calcium 8.7 Total Bilirubin 1.70 H AST 64 H ALT 80 H Alkaline Phosphatase 116 Troponin I < 0.015 B-Natriuretic Peptide 500.5 H Total Protein 6.2 L Albumin 2.9 L Globulin 3.3 Albumin/Globulin Ratio 0.9 Urine Color Urine Clarity Urine pH Ur Specific [place] Urine Protein Urine Glucose (UA) Urine Ketones Urine Occult Blood Urine Nitrite Urine Bilirubin Urine Urobilinogen Ur Leukocyte Esterase Urine RBC Urine WBC Ur Squamous Epith Cells Urine Bacteria Urine Mucus - EKG Initial EKG Interpretation: Atrial Fibrillation, - - Atrial fibrillation at a rate of 54. No acute ischemia - Medical Decision Making Given a dose of Lasix. EKG chest x-ray and lab work obtained. Chest x-ray shows nothing acute. Reevaluation patient states she is been drinking a lot of fluids. She thinks she might be fluid overloaded. This could be contributing to her hyponatremia. Patient was able to urinate after Lasix. Urine showed no evidence of infection. CBC shows a white slight leukocytosis. This could be related to her CLL. I do not feel she has any signs or symptoms of infection. Troponin negative. BNP 500 which is likely related to her atrial fibrillation. She has had no history of CHF. Discussed with the hospitalist. I feel she will need to be admitted for further evaluation and treatment. ED Disposition - Plan for ED Patient: Disposition: Home or Assisted Living Diagnosis: Hyponatremia with excess extracellular fluid volume, Chronic renal insufficiency, Chronic atrial fibrillation Referrals: Israel Bucio DO [Primary Care Provider] -
[2019-01-18] VITALS (14 sets, daily range): BP systolic 91–127; BP diastolic 35–77; PULSE 38–88; RESP 14–18; TEMP 36.2–37.4; O2SAT 95–100; BMI 33.3
[2019-01-18 00:04] LABS: Bacteria 0 SEEN /hpf (None Seen); Mucous, Urine 0 SEEN /hpf (<or=2+)
[2019-01-18 00:12] LABS: Color, Urine Yellow (Yellow); Glucose, Dipstick Normal (Normal); Ketone-Dipstick Negative (Negative); Leukocyte Esterase-Dipstick 500 /ul (Negative); Nitrite-Dipstick Negative (Negative); Occult Blood-Urine Negative /ul (Negative); Protein-Dipstick Negative (Negative); Urine Bilirubin Dipstick Negative (Negative); Urine Clarity Clear (Clear); Urine Urobilinogen Normal (Normal); Urine pH 6.5 (5.0 - 8.0)
[2019-01-18 00:13] LABS: International Normalized Ratio 2.9; Prothrombin Time (Protime)PT. 30.5 SECONDS (11.7-14.9)
[2019-01-18 00:18] LABS: Hematocrit 30.6 % (37-47); Hemoglobin 10.4 g/dl (12.0-15.0); Mean Corpuscular Hgb 32.9 pg (27.0-32.0); Mean Corpuscular Volume 96.8 fL (81-99); Mean Platelet Vol. 8.8 fl (6.2-12.0); POSITIVE COUNT NO; POSITIVE DIFFERENTIAL NO; POSITIVE MORPHOLOGY NO; Platelet Count 147 K/mm3 (150-450); RBC Distribution Width CV 15.4 % (11.6-14.6); RBC Distribution Width SD 50.5 fl (35.1-43.9); Red Blood Count 3.16 M/mm3 (4.2-5.4); White Blood Count 12.1 K/mm3 (4.4-11.0)
[2019-01-18 00:19] LABS: Absolute Lymphocyte Count 4.51 X10^3/ul (0.83-4.51); Absolute Neutrophil Count 6.7 X10^3/uL (2.0-7.7); Basophil# 0.02 X10^3/uL; Basophil% 0.2 % (0-1); Eosinophil# 0.12 X10^3/uL; Lymphocyte # 4.51 X10^3/ul (4.0); Lymphocyte % 37.4 % (19-41); Monocyte# 0.68 X10^3/uL; Monocyte% 5.6 % (0-10); Neutrophil # 6.71 X10^3/uL (2.7-7.7); Neutrophil % 55.6 % (47-70)
[2019-01-18 00:25] LABS: ALB/GLOB Ratio 0.9 RATIO (0.9-2.4); AST(SGOT) 64 U/L (15-37); Alanine Aminotransfer ALT/SGPT 80 U/L (13-56); Albumin, Serum 2.9 g/dL (3.2-5.0); Alkaline Phosphatase 116 U/L (45-117); Anion Gap 8 (5-15); BUN 28 mg/dL (7-18); BUN/Creat Ratio 14.4 RATIO (10-20); Calcium,Total 8.7 mg/dL (8.5-10.1); Chloride 83 mmol/L (98-107); Creatinine, Serum 1.94 mg/dL (0.55-1.02); EST Glomerular Filtration Rate 27 mL/min (>60); Est Glom Filt Rate - Afr Amer 32 mL/min (>60); Estimated Creatinine Clearance 23.46 ml/min; Globulin 3.3 g/dL (2.2-4.2); Glucose 121 mg/dL (74-106); Potassium 3.4 mmol/L (3.5-5.1); Protein, Total 6.2 g/dL (6.4-8.2); Sodium Level 122 mmol/L (136-145)
[2019-01-18 00:31] LABS: Red Blood Cells-Urine 0-5 SEEN /hpf (0-5); Squamous Epithelial Cells - UA 0-5 SEEN /hpf (5-10); White Blood Cells 5-10 SEEN /hpf (0-5)
[2019-01-18 00:32] LABS: BNP,B-Type NATRIURETIC PEPTIDE 500.5 pg/mL (0-100)
--- NOTE | 2019-01-18 01:19 | PCM.HP.STD ---
Problem List (1) Hyponatremia with excess extracellular fluid volume Status: Acute (2) Chronic renal insufficiency Status: Chronic (3) Chronic atrial fibrillation Status: Chronic (4) Hypertension Status: Chronic Qualifiers: Hypertension type: essential hypertension Qualified Code(s): I10 - Essential (primary) hypertension (5) Atrial fibrillation Status: Chronic Qualifiers: Atrial fibrillation type: persistent Qualified Code(s): I48.1 - Persistent atrial fibrillation (6) CLL (chronic lymphocytic leukemia) Status: Chronic (7) Acute exacerbation of CHF (congestive heart failure) Status: Suspected History of Present Illness Date of Admission: 01/18/19 Chief Complaint: bilateral swelling of bilateral lower legs and weight gain The patient is a 73 year old F with a significant history of A. fib; CLL; recent shingles infection; and gout who presented to the emergency department because of 3-week history of progressively worsening bilateral leg swelling. Also her family reports that patient had increase in size of her abdomen. Patient does not think that her abdomen has increased in size. Patient sees line installer repairer, Dr. King for her A. fib. Her family report the patient has no history of heart failure but only sees line installer repairer for A. fib.. However patient reported that on January 04 2019 she was also told that she has heart failure. Also patient reports a weight gain of about 33 pounds during the last 2 weeks. She reported that her weight was 187Ibs on January 04 2019 but the day before presentation her weight was 220 pounds. Patient reported that previously she had bilateral leg swelling that usually goes down at night and she used to take Lasix but about 2 days ago her Lasix regimen was escalated and her hydrochlorothiazide regimen was decreased. She reported that she has been drinking so much water because of her acyclovir therapy for his shingles. At the emergency department patient was found to have elevated BNP of 500.5. Her sodium was low at 122. Her potassium was 3.4. Chloride was 83. She was found to have elevated liver enzymes. Total protein was low and her albumin level was low. Also she was found to have a white count of 12.1 and hemoglobin level of 10.4. Her platelets was mildly low at 147. Patient was given Lasix 40 mg IV x1. Also patient was found to be in A. fib but with low ventricular rate. Patient denies paroxysmal nocturnal dyspnea. She denies orthopnea. She reports that for a period of more than 6 months she has been using multiple pillows but the pillows are not stacked on top of each other; rather the pillows are in rows. Her family reports some mild confusion recently. Past Medical History Past Medical History (Chronic Problems): Chronic Problems (Last Reviewed 01/18/19 @ 03:39 by Johnny Romeo MD) Chronic renal insufficiency (Chronic) Chronic atrial fibrillation (Chronic) Hypertension (Chronic) Atrial fibrillation (Chronic) CLL (chronic lymphocytic leukemia) (Chronic) Medical History: Medical History (Last Reviewed 01/18/19 @ 04:24 by Johnny Romeo MD) Hypertension (Chronic) I10 Atrial fibrillation (Chronic) I48.91 CLL (chronic lymphocytic leukemia) (Chronic) C91.10 Chronic dizziness Kidney disease N28.9 Nausea R11.0 Proteinuria R80.9 Renal insufficiency N28.9 Allergies erythromycin base [Erythromycin Base] Adverse Reaction (Intermediate, Verified 01/04/19 09:44) Unknown Penicillins Adverse Reaction (Intermediate, Verified 01/04/19 09:44) Rash Home Medications: Ambulatory Orders Medication Instructions Recorded B-Complex with Vitamin C 1 ea PO DAILY 07/18/14 Clonidine HCl [Catapres] 0.2 mg PO BID 07/18/14 Multivitamins,Therapeutic 1 tab PO DAILY 07/18/14 [Multivitamin] Ubidecarenone [Co Q-10] 50 mg PO DAILY 07/18/14 Allopurinol [Zyloprim] 100 mg PO DAILYCM 01/20/17 atenolol 100 mg tablet 100 mg PO DAILY tab 07/23/18 magnesium citrate 100 mg tablet 1,000 mg PO DAILY tab 07/23/18 warfarin 4 mg tablet 8 mg PO DAILY #60 tab 09/30/18 Telmisartan 40 mg PO DAILY 12/29/18 hydrochlorothiazide 25 mg tablet 12.5 mg PO DAILY tab 01/04/19 furosemide 40 mg tablet 80 mg PO BID 01/15/19 potassium chloride ER 20 mEq 20 meq PO DAILY #30 tab 01/15/19 tablet,extended release Acyclovir 800 mg PO Q4H 01/17/19 Gabapentin [Neurontin] 300 mg PO TID 01/17/19 Surgical History: Surgical History (Last Reviewed 01/18/19 @ 04:24 by Johnny Romeo MD) History of cholecystectomy Z98.890, Z90.49 History of hysterectomy Z98.890, Z90.710 History of parathyroid surgery Z98.890 Surgical History: appendectomy, cholecystectomy, hysterectomy, - Lives: Alone Smoking Status: Never smoker Alcohol: None Drugs: None - *Family History Maternal Family History: Family History (Last Reviewed 01/18/19 @ 04:24 by Johnny Romeo MD) Mother Hypertension Heart disease Father Diabetes Review of Systems Constitutional: Reports: Weight Change - About 33 pounds weight gain in the last 2 weeks.. Denies: Chills, Fever HEENT: Denies: Head Aches, Sinus Congestion, Sinus Drainage Cardiovascular: Reports: Edema - Bilateral lower extremities; and right upper extremity. Denies: Chest Pain, Palpitations Respiratory: Denies: Cough, Shortness of breath at rest, Sputum production Gastrointestinal: Denies: Abdominal Pain, Nausea, Vomiting Genitourinary: Denies: Dysuria Musculoskeletal: Denies: Joint Pain, Joint Tenderness Skin: Denies: Rash, Wounds Neurological: Reports: Numbness - Right thumb. Denies: Focal weakness, Tingling Psychiatric: Denies: Anxiety, Depression, Homicidal Ideations, Suicidal Ideations Hematologic/ Lymphatic: Denies: Easy Bruising, Easy Bleeding VTE Information - Inpt Only VTE Present on Admission: No VTE Mechan Device Prophylaxis: None VTE Pharm Prophylaxis ordered?: No Reason prophylaxis not ordered:: Treatment Not Indicated - Therapeutic on her Coumadin for A. fib. Coumadin continued. Patient Problems: Active and Suspected Problems (Last Reviewed 01/18/19 @ 03:39 by Johnny Romeo MD) Hyponatremia with excess extracellular fluid volume (Acute) Acute exacerbation of CHF (congestive heart failure) (Suspected) - Physical Exam General: Alert, Oriented x3, Cooperative HEENT: Atraumatic, PERRLA, EOMI, Normocephalic Neck: Supple, No JVD, Negative Carotid Bruits Lungs: Clear to auscultation, Normal air movement Cardiovascular: No murmurs, Bradycardic, Irregular Rate Abdomen: Bowel Sounds Present, Soft, Non Tender, Obese Extremities: Capillary Refill Less than 3 Seconds, Edema - Bilateral pitting edema of legs and feet. Right upper extremity edema. Skin: Rash Present - Blisters on right upper extremity. Musculoskeletal: No Muscle Wasting Neurological: Neuro grossly intact Psych/Mental Status: Normal Affect, Appropriate Vital Signs Temp Pulse Resp BP Pulse Ox 98.0 F 51 L 16 105/65 95 01/17/19 22:17 01/18/19 00:39 01/18/19 00:39 01/18/19 00:39 01/18/19 00:39 Oxygen Delivery Method Room Air Weight: 99.79 kg Body Mass Index (BMI) 35.5 Laboratory Tests Past 24 Hrs 01/17/19 01/17/19 01/17/19 23:05 23:52 23:52 WBC 12.1 H RBC 3.16 L Hgb 10.4 L Hct 30.6 L MCV 96.8 MCH 32.9 H MCHC 34.0 RDW 15.4 H RDW Differential 50.5 H Plt Count 147 L MPV 8.8 Immature Gran % (Auto) 0.200 Neut % (Auto) 55.6 Lymph % (Auto) 37.4 [place] % (Auto) 5.6 Eos % (Auto) 1.0 Baso % (Auto) 0.2 Absolute Neuts (auto) 6.7 Absolute Lymphs (auto) 4.51 Total Counted Not Reportable PT 30.5 H INR 2.9 Sodium Potassium Chloride Carbon Dioxide Anion Gap BUN Creatinine Estim Creat Clear Calc Est GFR (MDRD) Af Amer Est GFR (MDRD) Non-Af BUN/Creatinine Ratio Glucose Calcium Total Bilirubin AST ALT Alkaline Phosphatase Troponin I B-Natriuretic Peptide Total Protein Albumin Globulin Albumin/Globulin Ratio Urine Color Yellow Urine Clarity Clear Urine pH 6.5 Ur Specific [place] 1.010 Urine Protein Negative Urine Glucose (UA) Normal Urine Ketones Negative Urine Occult Blood Negative Urine Nitrite Negative Urine Bilirubin Negative Urine Urobilinogen Normal Ur Leukocyte Esterase 500 H Urine RBC 0-5 SEEN Urine WBC 5-10 SEEN Ur Squamous Epith Cells 0-5 SEEN Urine Bacteria 0 SEEN Urine Mucus 0 SEEN 01/17/19 01/17/19 23:52 23:52 WBC RBC Hgb Hct MCV MCH MCHC RDW RDW Differential Plt Count MPV Immature Gran % (Auto) Neut % (Auto) Lymph % (Auto) [place] % (Auto) Eos % (Auto) Baso % (Auto) Absolute Neuts (auto) Absolute Lymphs (auto) Total Counted PT INR Sodium 122 L Potassium 3.4 L Chloride 83 L Carbon Dioxide 31.0 Anion Gap 8 BUN 28 H Creatinine 1.94 H Estim Creat Clear Calc 23.46 Est GFR (MDRD) Af Amer 32 L Est GFR (MDRD) Non-Af 27 L BUN/Creatinine Ratio 14.4 Glucose 121 H Calcium 8.7 Total Bilirubin 1.70 H AST 64 H ALT 80 H Alkaline Phosphatase 116 Troponin I < 0.015 B-Natriuretic Peptide 500.5 H Total Protein 6.2 L Albumin 2.9 L Globulin 3.3 Albumin/Globulin Ratio 0.9 Urine Color Urine Clarity Urine pH Ur Specific [place] Urine Protein Urine Glucose (UA) Urine Ketones Urine Occult Blood Urine Nitrite Urine Bilirubin Urine Urobilinogen Ur Leukocyte Esterase Urine RBC Urine WBC Ur Squamous Epith Cells Urine Bacteria Urine Mucus Assessment/Plan All Active Problems (Last Reviewed 01/18/19 @ 03:39 by Johnny Romeo MD) Hyponatremia with excess extracellular fluid volume (Acute) alf (current) use of anticoagulants (Acute) The patient is a 73 year old F with a significant history of A. fib; CLL; recent shingles infection; and gout with stigmata of fluid overload consistent with likely acute exacerbation of CHF. Suspected acute exacerbation of CHF. Echocardiogram on 07/31/2018 was reviewed. Echocardiogram showed estimated ejection fraction of 60% . Diastolic function was indeterminate. There was mild diffuse mitral valve thickening. Moderate eccentric mitral valve insufficiency. Mild to moderate tricuspid valve insufficiency. Right ventricular systolic pressure was estimated to be 36. There was mild focal aortic valve calcification. The pulmonary valve was not well visualized. There was trivial pulmonic valve insufficiency. The right atrium was moderately enlarged. The left atrium was severely enlarged. Because of her fluid overload will order an echocardiogram. Review of emergency department labs shows that her BNP was 500.5. No old BNP to compare with. While patient stated that she has been diagnosed with heart failure about 2 weeks ago her family did not think so. Unclear whether this is new heart failure or an acute exacerbation of heart failure. However she uses diuretics at home. And her diuretic, Lasix, was increased about 2 days ago while her hydrochlorthiazide was decreased. With the increase in Lasix regimen she began taking Lasix 80 mg p.o. twice daily. At the emergency department she had 40 mg IV Lasix. We will schedule patient on 40 mg IV Lasix twice daily. Chest x-ray showed cardiomegaly; and persistent elevation of anterior medial aspect of right hemidiaphragm. Chest x-ray was independently reviewed. I agree with radiologist interpretation. Chest x-ray on 06/09/2018 also showed similar findings as stated above. Continue hydrochlorothiazide 12.5 mg p.o. daily Dave receptor josh continued Elevate lower extremities Dave wrap bilateral lower extremities Patient was placed on fluid restriction. 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 Patient takes allopurinol for gout. She reported that she had a one-time episode of gout. Of note with patient on diuretics she is at risk for gout attack. TSH ordered; returned unremarkable. Magnesium was ordered; returned normal at 2.0. Patient follows up with Dr. King, line installer repairer. Consider discussing case with Dr. King. Hyponatremia Likely secondary to congestive heart failure. Treat suspected congestive heart failure as above. A. fib. Patient heart rate was 50-60s and she was in A. fib. Patient is on anticoagulation with Coumadin and she is therapeutic on her Coumadin dose. Reportedly cardiology wanted patient to be therapeutic for a long time and cardioversion attempted. Coumadin continued. We will get INR next day. Admitted to telemetry on PCU. Shingles Patient noted to have blisters on right side. Importantly patient is immunocompromised from her CLL and she is at risk for disseminated infection. This is her second course of acyclovir Acyclovir continued Gabapentin continued for neuropathy. Pancytopenia Patient noted to have low hemoglobin and mildly decreased platelets. This could be due to his CLL. Her hemoglobin on admission was 10.4. Her hemoglobin on 12/29/2018 was 13.5; and on 10/30/2018 was 12.2. Trend CBC. On admission her platelet was 147 but this looks improved from previous. Leukocytosis Her WBC on presentation was 12.1 This could be due to his CLL. It could also be reactive. Review of records show that in the past patient she has had episodes where her white count was severely high even at one time it was as high as 38.8. However her white count on 12/29/2018 was 8.9;and on 10/30/2018 was 8.3. Trend CBC. CLL Patient to continue outpatient follow-up. CKD stage IV. His creatinine on admission was 1.94. Review of old records shows variable creatinine with a wide range. Her creatinine appear to be at her baseline. DVT prophylaxis Not indicated since patient is getting Coumadin for A. fib and she is therapeutic on her Coumadin. Code Visit Inpatient E&M: 81937 Init Hosp L3
--- NOTE | 2019-01-18 02:42 | ECHOD_ITS ---
Reason For Study: CHF Procedure This was a 2D Doppler, Color Flow transthoracic echocardiogram. PT SCANNED SUPINE DUE TO SHINGLES PAIN. Exam performed portable in patient room. Left Ventricle Normal LV size. Mild concentric left ventricular hypertrophy. Left ventricular systolic function is normal. The estimated ejection fraction is 60 %. Unable to assess diastolic dysfunction due to arrhythmia. No regional wall motion abnormalities noted. Right Ventricle Normal RV size. Normal systolic function. Atria The left atrium is severely enlarged. The right atrium is moderately enlarged. Mitral Valve Normal mitral valve. Mild (1+) eccentric mitral valve insufficiency. Tricuspid Valve Normal tricuspid valve. Mild (1+) tricuspid valve insufficiency. Pulmonary artery systolic pressure is 32 mmHg. Aortic Valve Trisinus/trileaflet aortic valve. Mild focal aortic valve calcification. Pulmonic Valve Normal pulmonic valve. Great Vessels Normal aortic root. The pulmonary artery is normal size. Normal inferior vena cava. Pericardium/Pleural No pericardial effusion. MMode/2D Measurements & Calculations LVIDd: 5.5 cm IVSd: 1.2 cm Ao root diam: 3.5 cm LVIDs: 3.1 cm LVPWd: 1.3 cm RVDd: 3.9 cm FS: 44.2 % LAV(MOD-bp): 196.9 ml LA A4 area: 47.7 cm2 LA dimension(2D): 5.8 cm LAV(MOD-bp) Indexed: 94.7 ml/m2 LAV(MOD-sp2): 175.0 ml LAV(MOD-sp4): 218.8 ml RA A4 area: 27.1 cm2 Doppler Measurements & Calculations MV E max emma: 106.0 cm/sec Ao V2 max: 166.5 cm/sec LV V1 max: 129.9 cm/sec Ao max P.1 mmHg LV V1 max P.8 mmHg PA V2 max: 84.7 cm/sec TR max emma: 260.9 cm/sec TR max P.3 mmHg Interpretation Summary Normal LV size. Left ventricular systolic function is normal. The estimated ejection fraction is 60 %. Unable to assess diastolic dysfunction due to arrhythmia. Mild concentric left ventricular hypertrophy. Mild (1+) tricuspid valve insufficiency. Compared to previous study, the left ventricular systolic function is the same.. Ordering Physician: Johnny Romeo Referring Physician: Johnny Romeo Performed By: Dee Weiss RDCS
[2019-01-18 03:25] LABS: Thyroid Stim Hormone (TSH) 1.88 uIU/mL (0.358-3.74)
[2019-01-18] MEDS: Acetaminophen 325 MG Tablet 650 MG PO ×3 (04:22→21:00)
[2019-01-18] MEDS: Gabapentin 300 MG Capsule PO ×3 (05:19→21:01)
[2019-01-18] MEDS: Acyclovir 800 MG Tablet PO ×5 (05:19→21:01)
[2019-01-18 06:27] LABS: Absolute Lymphocyte Count 3.89 X10^3/ul (0.83-4.51); Absolute Neutrophil Count 6.5 X10^3/uL (2.0-7.7); Basophil# 0.01 X10^3/uL; Basophil% 0.1 % (0-1); Eosinophil# 0.07 X10^3/uL; Eosinophils% 0.6 % (0-5); Hematocrit 29.5 % (37-47); Hemoglobin 9.9 g/dl (12.0-15.0); Lymphocyte # 3.89 X10^3/ul (4.0); Lymphocyte % 35.4 % (19-41); Mean Corp Hgb Conc 33.6 g/gl (32-36); Mean Corpuscular Hgb 32.5 pg (27.0-32.0); Mean Corpuscular Volume 96.7 fL (81-99); Mean Platelet Vol. 8.4 fl (6.2-12.0); Monocyte# 0.51 X10^3/uL; Monocyte% 4.6 % (0-10); Neutrophil # 6.46 X10^3/uL (2.7-7.7); Neutrophil % 58.9 % (47-70); Platelet Count 136 K/mm3 (150-450); RBC Distribution Width CV 15.4 % (11.6-14.6); RBC Distribution Width SD 50.8 fl (35.1-43.9); Red Blood Count 3.05 M/mm3 (4.2-5.4)
[2019-01-18 06:42] LABS: Anion Gap 9 (5-15); BUN 28 mg/dL (7-18); BUN/Creat Ratio 15.5 RATIO (10-20); Calcium,Total 8.8 mg/dL (8.5-10.1); Chloride 85 mmol/L (98-107); Creatinine, Serum 1.81 mg/dL (0.55-1.02); EST Glomerular Filtration Rate 29 mL/min (>60); Est Glom Filt Rate - Afr Amer 35 mL/min (>60); Estimated Creatinine Clearance 25.14 ml/min; Glucose 162 mg/dL (74-106); Potassium 3.9 mmol/L (3.5-5.1); Sodium Level 124 mmol/L (136-145)
[2019-01-18 06:44] LABS: POSITIVE COUNT NO; POSITIVE DIFFERENTIAL NO; POSITIVE MORPHOLOGY NO
[2019-01-18] MEDS: Atenolol 100 MG Tablet PO (09:56)
[2019-01-18] MEDS: hydroCHLOROthiazide 12.5mg 12.5 MG PO (09:56)
[2019-01-18] MEDS: Losartan Potassium 50 MG Tablet PO (09:56)
[2019-01-18] MEDS: Vitamin B Comp W-C Capsule 1 CAP PO (09:56)
[2019-01-18] MEDS: Allopurinol 100 MG Tablet PO (09:56)
[2019-01-18] MEDS: cloNIDine HCl 0.2 MG Tablet PO ×2 (09:56→21:01)
[2019-01-18] MEDS: Furosemide 40 MG/4 ML Vial IV ×3 (09:57→18:14)
[2019-01-18] MEDS: Multivitamins,Therapeutic Tablet 1 TABLET PO (09:57)
[2019-01-18] MEDS: 0.9% NaCl Peripheral Flush Adult/Peds IV ×2 (10:01→18:14)
[2019-01-18 10:24] LABS: Phosphorus 2.5 mg/dL (2.5-4.9)
[2019-01-18] MEDS: Magnesium Oxide 400 MG Tablet 800 MG PO (12:26)
--- NOTE | 2019-01-18 13:40 | PN_ITS ---
Patient Problems: Active and Suspected Problems (Last Reviewed 01/18/19 @ 04:24 by Johnny Romeo MD) Hyponatremia with excess extracellular fluid volume (Acute) Acute exacerbation of CHF (congestive heart failure) (Suspected) Subjective: Pt resting comfortably in bed NAD. No SOB, no CP/tightness/heaviness. She states she is having issues completely emptying her bladder. No dysuria. No fever/chills/abdominal pain. She has ongoing LE edema. Pt thinks weight is improving. No palp, dizziness, LH. Pt on Coumadin in preparation for outpatient cardioversion in 2 weeks. - Physical Exam General: Alert, Oriented x3, Cooperative HEENT: Atraumatic, PERRLA, EOMI, Normocephalic Neck: Supple, No JVD, Negative Carotid Bruits Lungs: Clear to auscultation, Normal air movement Cardiovascular: No murmurs, Irregular Rate Abdomen: Bowel Sounds Present, Soft, Non Tender Extremities: Capillary Refill Less than 3 Seconds, Edema - 2+ BL LE Skin: No rashes, No breakdown Musculoskeletal: No Tenderness to Palpation of Joints or Extremities Neurological: Cranial nerves II-XII grossly intact Psych/Mental Status: Normal Affect, Appropriate, Alert and oriented to time, place, person, mood and affect Vital Signs Temp Pulse Resp BP Pulse Ox 98.1 F 57 L 18 115/47 L 97 01/18/19 08:05 01/18/19 08:05 01/18/19 08:05 01/18/19 08:05 01/18/19 08:15 Oxygen Delivery Method Room Air Weight: 207 lb 3.752 oz Body Mass Index (BMI) 33.3 Intake and Output for Last 24 Hours 01/16/19 01/17/19 01/18/19 23:59 23:59 23:59 Intake Total 690 / 690 Balance 690 / 690 Laboratory Tests Past 24 Hrs 01/17/19 01/17/19 01/17/19 23:05 23:52 23:52 WBC 12.1 H RBC 3.16 L Hgb 10.4 L Hct 30.6 L MCV 96.8 MCH 32.9 H MCHC 34.0 RDW 15.4 H RDW Differential 50.5 H Plt Count 147 L MPV 8.8 Immature Gran % (Auto) 0.200 Neut % (Auto) 55.6 Lymph % (Auto) 37.4 [place] % (Auto) 5.6 Eos % (Auto) 1.0 Baso % (Auto) 0.2 Absolute Neuts (auto) 6.7 Absolute Lymphs (auto) 4.51 Total Counted Not Reportable PT 30.5 H INR 2.9 Sodium Potassium Chloride Carbon Dioxide Anion Gap BUN Creatinine Estim Creat Clear Calc Est GFR (MDRD) Af Amer Est GFR (MDRD) Non-Af BUN/Creatinine Ratio Glucose Calcium Phosphorus Magnesium Total Bilirubin AST ALT Alkaline Phosphatase Troponin I B-Natriuretic Peptide Total Protein Albumin Globulin Albumin/Globulin Ratio TSH Urine Color Yellow Urine Clarity Clear Urine pH 6.5 Ur Specific [place] 1.010 Urine Protein Negative Urine Glucose (UA) Normal Urine Ketones Negative Urine Occult Blood Negative Urine Nitrite Negative Urine Bilirubin Negative Urine Urobilinogen Normal Ur Leukocyte Esterase 500 H Urine RBC 0-5 SEEN Urine WBC 5-10 SEEN Ur Squamous Epith Cells 0-5 SEEN Urine Bacteria 0 SEEN Urine Mucus 0 SEEN 01/17/19 01/17/19 01/17/19 23:52 23:52 23:52 WBC RBC Hgb Hct MCV MCH MCHC RDW RDW Differential Plt Count MPV Immature Gran % (Auto) Neut % (Auto) Lymph % (Auto) [place] % (Auto) Eos % (Auto) Baso % (Auto) Absolute Neuts (auto) Absolute Lymphs (auto) Total Counted PT INR Sodium 122 L Potassium 3.4 L Chloride 83 L Carbon Dioxide 31.0 Anion Gap 8 BUN 28 H Creatinine 1.94 H Estim Creat Clear Calc 23.46 Est GFR (MDRD) Af Amer 32 L Est GFR (MDRD) Non-Af 27 L BUN/Creatinine Ratio 14.4 Glucose 121 H Calcium 8.7 Phosphorus Magnesium 2.0 Total Bilirubin 1.70 H AST 64 H ALT 80 H Alkaline Phosphatase 116 Troponin I < 0.015 B-Natriuretic Peptide 500.5 H Total Protein 6.2 L Albumin 2.9 L Globulin 3.3 Albumin/Globulin Ratio 0.9 TSH 1.88 Urine Color Urine Clarity Urine pH Ur Specific [place] Urine Protein Urine Glucose (UA) Urine Ketones Urine Occult Blood Urine Nitrite Urine Bilirubin Urine Urobilinogen Ur Leukocyte Esterase Urine RBC Urine WBC Ur Squamous Epith Cells Urine Bacteria Urine Mucus 01/18/19 01/18/19 01/18/19 06:00 06:00 06:00 WBC 11.0 RBC 3.05 L Hgb 9.9 L Hct 29.5 L MCV 96.7 MCH 32.5 H MCHC 33.6 RDW 15.4 H RDW Differential 50.8 H Plt Count 136 L MPV 8.4 Immature Gran % (Auto) 0.400 Neut % (Auto) 58.9 Lymph % (Auto) 35.4 [place] % (Auto) 4.6 Eos % (Auto) 0.6 Baso % (Auto) 0.1 Absolute Neuts (auto) 6.5 Absolute Lymphs (auto) 3.89 Total Counted Not Reportable PT INR Sodium 124 L Potassium 3.9 Chloride 85 L Carbon Dioxide 30.0 Anion Gap 9 BUN 28 H Creatinine 1.81 H Estim Creat Clear Calc 25.14 Est GFR (MDRD) Af Amer 35 L Est GFR (MDRD) Non-Af 29 L BUN/Creatinine Ratio 15.5 Glucose 162 H Calcium 8.8 Phosphorus 2.5 Magnesium Total Bilirubin AST ALT Alkaline Phosphatase Troponin I B-Natriuretic Peptide Total Protein Albumin Globulin Albumin/Globulin Ratio TSH Urine Color Urine Clarity Urine pH Ur Specific [place] Urine Protein Urine Glucose (UA) Urine Ketones Urine Occult Blood Urine Nitrite Urine Bilirubin Urine Urobilinogen Ur Leukocyte Esterase Urine RBC Urine WBC Ur Squamous Epith Cells Urine Bacteria Urine Mucus Medical Necessity - Tobacco Use Smoking Status: Never smoker Assessment/Plan All Active Problems (Last Reviewed 01/18/19 @ 04:24 by Johnny Romeo MD) Hyponatremia with excess extracellular fluid volume (Acute) local intermodal truck driver (current) use of anticoagulants (Acute) 1. Acute diastolic congestive heart failure exacerbation-continue IV Lasix. She has no respiratory symptoms at this time, is marked by lower extremity edema. Her weight is improving, I's and O's are not accurate at this point. She does have ongoing urinary issues, will check postvoid residual as she may be retaining. 2%, normal LV size and function, mild LVH, 1+ TVI. BNP was 500.5, TSH normal. Patient is already on beta-josh and ARB. 2. Shingles-continue oral acyclovir and isolation precautions. 3. Paroxysmal atrial fibrillation-continue Coumadin, rate is controlled, plan for outpatient cardioversion as previously planned with cardiology only rate li miting medication at this time is atenolol. 4. Hyponatremia-suspect secondary to volume overload and use of thiazide diuretics. Will discontinue HCTZ. Hypokalemia has resolved, mag borderline low-replaced. Fossa normal. 5. CKD stage IV-improving with Lasix. 6. History of CLL-at this time mild bump in WBCs has resolved, she is mildly anemic and has mild thrombocytopenia. Will trend. 7. Hypertension-stable DVT prophylaxis: Coumadin DC planning-continue to diuresis-plan for PT OT and likely home tomorrow This patient was seen by Danis Chatterjee PA-C under the supervision of Doctor Tammy.
[2019-01-18 17:37] LABS: Urine Sodium 46 mmol/L (Not Establ.)
[2019-01-18 20:17] LABS: Osmolality, Urine 220 mOsm/KG
[2019-01-19] VITALS (15 sets, daily range): BP systolic 102–122; BP diastolic 42–60; PULSE 33–64; RESP 12–18; TEMP 35.6–37.4; O2SAT 92–100
[2019-01-19] MEDS: Acetaminophen 325 MG Tablet 650 MG PO ×3 (03:00→18:34)
[2019-01-19 04:40] LABS: Absolute Lymphocyte Count 3.27 X10^3/ul (0.83-4.51); Absolute Neutrophil Count 3.9 X10^3/uL (2.0-7.7); Basophil# 0.02 X10^3/uL; Basophil% 0.3 % (0-1); Eosinophil# 0.26 X10^3/uL; Eosinophils% 3.3 % (0-5); Hematocrit 28.8 % (37-47); Hemoglobin 9.3 g/dl (12.0-15.0); Lymphocyte # 3.27 X10^3/ul (4.0); Mean Corp Hgb Conc 32.3 g/gl (32-36); Mean Corpuscular Hgb 32.3 pg (27.0-32.0); Mean Platelet Vol. 8.7 fl (6.2-12.0); Monocyte# 0.47 X10^3/uL; Monocyte% 5.9 % (0-10); Neutrophil # 3.93 X10^3/uL (2.7-7.7); Neutrophil % 49.2 % (47-70); Platelet Count 133 K/mm3 (150-450); RBC Distribution Width CV 15.8 % (11.6-14.6); RBC Distribution Width SD 52.9 fl (35.1-43.9); Red Blood Count 2.88 M/mm3 (4.2-5.4)
[2019-01-19 04:41] LABS: POSITIVE COUNT NO; POSITIVE DIFFERENTIAL NO; POSITIVE MORPHOLOGY NO
[2019-01-19 04:45] LABS: International Normalized Ratio 2.1; Prothrombin Time (Protime)PT. 23.5 SECONDS (11.7-14.9)
[2019-01-19 05:06] LABS: ALB/GLOB Ratio 0.9 RATIO (0.9-2.4); AST(SGOT) 38 U/L (15-37); Alanine Aminotransfer ALT/SGPT 55 U/L (13-56); Albumin, Serum 2.6 g/dL (3.2-5.0); Alkaline Phosphatase 96 U/L (45-117); Anion Gap 8 (5-15); BUN 31 mg/dL (7-18); BUN/Creat Ratio 17.1 RATIO (10-20); Calcium,Total 8.5 mg/dL (8.5-10.1); Chloride 88 mmol/L (98-107); Creatinine, Serum 1.81 mg/dL (0.55-1.02); EST Glomerular Filtration Rate 29 mL/min (>60); Est Glom Filt Rate - Afr Amer 35 mL/min (>60); Estimated Creatinine Clearance 25.14 ml/min; Globulin 2.9 g/dL (2.2-4.2); Glucose 114 mg/dL (74-106); Protein, Total 5.5 g/dL (6.4-8.2); Sodium Level 128 mmol/L (136-145)
[2019-01-19] MEDS: Gabapentin 300 MG Capsule PO (05:56)
[2019-01-19] MEDS: Acyclovir 800 MG Tablet PO ×5 (05:56→21:38)
--- NOTE | 2019-01-19 09:33 | CASEMGMT ---
RN CM assessment: Face to Face with patient for initial transition planning/care coordination assessment. RN CM introduced self and role at [facility] to daughterNupur, at this time, voices understanding and consents to assessment at this time. Pt is still in airborne precautions at this time and this RN CM spoke with daughter in the hallway at this time. Care providers, pharmacy, and demographics verified at this time. PCP: [facility] Specialists: nino King Preferred Pharmacy: [facility] Insurance: [employer] A/B, [employer] Medical Prescription Benefit: [employer] MCR D Living Will/HPOA: Per daughter, pt states does not have LW/HPOA at this time and declines info at this time. LNOK: Jasmine Limon, daughter; Nupur Burkett, daughter Living Arrangements: Pt lives alone on main floor of 2 story home and her daughter, Jasmine Limon, lives on the 2nd floor. Per daughterNupur, pt was independent with ADL's prior to when shingles started about 2 weeks ago. Per daughter, pt was working up until 2 weeks ago. Transportation: Pt was driving or family drives and states no transportation concerns at this time. DME/HHC: Pt has the following DME but does not use: cane and walker. Per daughter, no hx of HHC or SNF in the past. Daughter is concerned that Dr. King's office has not been contacted that pt is admitted and this RN CM advised daughter that this RN CM will notify nurse at Christine's office at this time. Message left with Christine's nurse about pt admission at this time. Daughter also states concern that she did not get to speak with hospitalist yesterday and Dr. Munoz/Bhavin CRUMP aware at this time and Dr. Munoz into room to speak with daughter/pt at this time. Pt's daughter states no concerns with pt going home at time of discharge and is contemplating OP vs HHC at this time for therapy. CM to follow for any further discharge planning/needs. Advised pt/daughter to ask for CM if any further questions/concerns/needs arise, voices understanding. Pt Goal: Home Plan: Home, OP vs HHC for therapy [facility]
[2019-01-19] MEDS: Vitamin B Comp W-C Capsule 1 CAP PO (11:28)
[2019-01-19] MEDS: Multivitamins,Therapeutic Tablet 1 TABLET PO (11:28)
[2019-01-19] MEDS: cloNIDine HCl 0.2 MG Tablet PO ×2 (11:30→21:39)
[2019-01-19] MEDS: Pregabalin 75 MG Capsule PO ×2 (11:30→21:41)
[2019-01-19] MEDS: Losartan Potassium 50 MG Tablet PO (11:30)
[2019-01-19] MEDS: Allopurinol 100 MG Tablet PO (11:30)
--- NOTE | 2019-01-19 11:31 | NURSING ---
Was asked to see patient for drying shingles to the right arm. currently MAYRA. no signs of infection noted. no drainage noted. appear to be drying well. would leave MAYRA, but patient has been picking at the scabs. washed arm with soap and water. rinsed, and pat dry. applied kerlix rolls to protect patient from picking at the scabs. family present at bedside. will monitor as needed.
--- NOTE | 2019-01-19 13:29 | PN_ITS ---
Patient Problems: Active and Suspected Problems (Last Reviewed 01/18/19 @ 04:24 by Johnny Romeo MD) Hyponatremia with excess extracellular fluid volume (Acute) Acute exacerbation of CHF (congestive heart failure) (Suspected) Subjective: Ongoing burning skin pain RUE. Pt continues to use vinegar and states it is the only thing that relieves her pain and that she plans to continue to do so despite multiple requests for her to stop doing it. No fever or chills. LE edema ongoing. No SOB or cough. She was retaining urine yesterday, cath was placed. - Physical Exam General: Alert, Oriented x3, Cooperative HEENT: Atraumatic, PERRLA, EOMI, Normocephalic Neck: Supple, No JVD, Negative Carotid Bruits Lungs: Clear to auscultation, Normal air movement Cardiovascular: Regular rate, No murmurs Abdomen: Bowel Sounds Present, Soft, Non Tender Extremities: Capillary Refill Less than 3 Seconds, Edema - improved Skin: No rashes, No breakdown Musculoskeletal: No Tenderness to Palpation of Joints or Extremities Neurological: Cranial nerves II-XII grossly intact Psych/Mental Status: Normal Affect, Appropriate, Alert and oriented to time, place, person, mood and affect Vital Signs Temp Pulse Resp BP Pulse Ox 97.9 F 55 L 18 122/60 H 92 01/19/19 08:44 01/19/19 08:44 01/19/19 08:44 01/19/19 08:44 01/19/19 09:10 Oxygen Delivery Method Room Air Weight: 200 lb 13.458 oz Body Mass Index (BMI) 33.3 Intake and Output for Last 24 Hours 01/17/19 01/18/19 01/19/19 23:59 23:59 23:59 Intake Total 1600 / 1600 250 / 250 Output Total 1200 / 1200 1250 / 1250 Balance 400 / 400 -1000 / -1000 Laboratory Tests Past 24 Hrs 01/17/19 01/17/19 01/17/19 23:05 23:05 23:05 WBC RBC Hgb Hct MCV MCH MCHC RDW RDW Differential Plt Count MPV Immature Gran % (Auto) Neut % (Auto) Lymph % (Auto) [place] % (Auto) Eos % (Auto) Baso % (Auto) Absolute Neuts (auto) Absolute Lymphs (auto) Total Counted PT INR Sodium Potassium Chloride Carbon Dioxide Anion Gap BUN Creatinine Estim Creat Clear Calc Est GFR (MDRD) Af Amer Est GFR (MDRD) Non-Af BUN/Creatinine Ratio Glucose Calcium Total Bilirubin AST ALT Alkaline Phosphatase Total Protein Albumin Globulin Albumin/Globulin Ratio Urine Osmolality 220 Ur Random Sodium 46 Urine Creatinine 42.20 Hepatitis A IgM Ab Hepatitis A Ab Total Hep Bs Antigen Hep B Core Total Ab Hep B Core IgM Ab 01/19/19 01/19/19 01/19/19 04:16 04:16 04:16 WBC 8.0 RBC 2.88 L Hgb 9.3 L Hct 28.8 L MCV 100.0 H MCH 32.3 H MCHC 32.3 RDW 15.8 H RDW Differential 52.9 H Plt Count 133 L MPV 8.7 Immature Gran % (Auto) 0.300 Neut % (Auto) 49.2 Lymph % (Auto) 41.0 [place] % (Auto) 5.9 Eos % (Auto) 3.3 Baso % (Auto) 0.3 Absolute Neuts (auto) 3.9 Absolute Lymphs (auto) 3.27 Total Counted Not Reportable PT 23.5 H INR 2.1 Sodium 128 L Potassium 4.0 Chloride 88 L Carbon Dioxide 32.0 Anion Gap 8 BUN 31 H Creatinine 1.81 H Estim Creat Clear Calc 25.14 Est GFR (MDRD) Af Amer 35 L Est GFR (MDRD) Non-Af 29 L BUN/Creatinine Ratio 17.1 Glucose 114 H Calcium 8.5 Total Bilirubin 1.10 H AST 38 H ALT 55 Alkaline Phosphatase 96 Total Protein 5.5 L Albumin 2.6 L Globulin 2.9 Albumin/Globulin Ratio 0.9 Urine Osmolality Ur Random Sodium Urine Creatinine Hepatitis A IgM Ab Hepatitis A Ab Total Hep Bs Antigen Hep B Core Total Ab Hep B Core IgM Ab 01/19/19 04:16 WBC RBC Hgb Hct MCV MCH MCHC RDW RDW Differential Plt Count MPV Immature Gran % (Auto) Neut % (Auto) Lymph % (Auto) [place] % (Auto) Eos % (Auto) Baso % (Auto) Absolute Neuts (auto) Absolute Lymphs (auto) Total Counted PT INR Sodium Potassium Chloride Carbon Dioxide Anion Gap BUN Creatinine Estim Creat Clear Calc Est GFR (MDRD) Af Amer Est GFR (MDRD) Non-Af BUN/Creatinine Ratio Glucose Calcium Total Bilirubin AST ALT Alkaline Phosphatase Total Protein Albumin Globulin Albumin/Globulin Ratio Urine Osmolality Ur Random Sodium Urine Creatinine Hepatitis A IgM Ab Pending Hepatitis A Ab Total Pending Hep Bs Antigen Pending Hep B Core Total Ab Pending Hep B Core IgM Ab Pending Medical Necessity - Tobacco Use Smoking Status: Never smoker Assessment/Plan All Active Problems (Last Reviewed 01/18/19 @ 04:24 by Johnny Romeo MD) Hyponatremia with excess extracellular fluid volume (Acute) 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 Acute diastolic congestive heart failure exacerbation-continue IV Lasix, inc to TID. She has no respiratory symptoms at this time, is marked by lower extremity edema. Her weight is improving. She has good diuresis. Continue ARSEN wraps. Echo 60%, normal LV size and function, mild LVH, 1+ TVI. BNP was 500.5, TSH normal. Patient is already on beta-josh and ARB. -Consult cardiology -Pt had urinary retention, doran placed yesterday. 2. Shingles-continue oral acyclovir and isolation precautions. 3. Paroxysmal atrial fibrillation-continue Coumadin, rate is controlled, plan for outpatient cardioversion as previously planned with cardiology only rate limiting medication at this time is atenolol - she did have some bradycardia, may need decreased, will defer to cardiology. 4. Hyponatremia-suspect secondary to volume overload and use of thiazide diuretics. Will discontinue HCTZ. Hypokalemia has resolved, mag borderline low-this was replaced yesterday. Phos normal. 5. CKD stage IV-stable, nephrology consult. 6. History of CLL - WBC normal. low Hgb and platelets. 7. Hypertension-stable 8. Abnormal LFTs - possibly 2/2 acyclovir. Hep panel pending. LFTs are improved. Liver US shows right renal cyst, otherwise normal. DVT prophylaxis: Coumadin DC planning-continue to diuresis-diurese to close dry weight then home. This patient was seen by Danis Chatterjee PA-C under the supervision of Doctor Tammy.
--- NOTE | 2019-01-19 14:14 | PCM.CONS.R ---
Problem List (1) Chronic renal insufficiency Status: Chronic (2) Acute exacerbation of CHF (congestive heart failure) Status: Suspected Consultation - Renal 01/19/19 PCP/ Referring MD: Requesting physician: Dr Munoz Primary care physician: Israel Bucio DO Reason for Consultation:: CKD CHF - History of Present Illness History of Present Illness: The patient is a 73 year old F well known to us. she has known history of CKD stage 3 with baseline creatinine around 1.6 to 1.8. history of CLL which is stable. some proteinuria which was assumed to be related to CLL> overall stable CKD developed shingles 4 weeks ago, recently started on Acyclovir. was told to stay hydrated hence increased quantity of fluids developed worsening edema for last 2 weeks. she has some edema at baseline echo reviewed UA does not show any proteinuria - Allergies Allergies: Allergies erythromycin base [Erythromycin Base] Adverse Reaction (Intermediate, Verified 01/04/19 09:44) Unknown Penicillins Adverse Reaction (Intermediate, Verified 01/04/19 09:44) Rash - Current Medications Current Medications: Current Medications Acetaminophen (Tylenol) 650 mg PO Q6H PRN PRN PRN Reason: Mild Pain (scale 0-3)/T>100.7 Last Admin: 01/19/19 11:28 Dose: 650 mg Acyclovir (Zovirax) 800 mg PO 5X/DAY [facility] Stop: 01/21/19 22:01 Last Admin: 01/19/19 11:30 Dose: 800 mg Allopurinol (Zyloprim) 100 mg PO DAILYCM [facility] Last Admin: 01/19/19 11:30 Dose: 100 mg Atenolol (Tenormin (Beta Paras)) 100 mg PO DAILY [facility] Last Admin: 01/19/19 08:48 Dose: Not Given Bisacodyl (Dulcolax) 5 mg PO DAILY PRN PRN PRN Reason: Constipation Clonidine (Catapres) 0.2 mg PO BID [facility] Last Admin: 01/19/19 11:30 Dose: 0.2 mg Furosemide (Lasix) 40 mg IV Q8 BUNNY Losartan Potassium (Cozaar) 50 mg PO DAILY [facility] Last Admin: 01/19/19 11:30 Dose: 50 mg Magnesium Hydroxide (Milk Of Magnesia) 30 ml PO DAILY PRN PRN Reason: Constipation Morphine Sulfate () 2 mg IV Q4H PRN PRN PRN Reason: SEVERE PAIN (6-10/10) Mult[facility]it[facility] ([facility]) [facility] Last Admin: 01/19/19 11:28 Dose: 1 tablet Multivitamins (Allbee W/C Caplet, Thera B Comp/C) [facility] Last Admin: 01/19/19 11:28 Dose: 1 capsule Nutritional Formula (Lactose Free) (Ensure Enlive) 120 ml PO 4X/DAY [facility] Last Admin: 01/19/19 08:48 Dose: Not Given Ondansetron HCl (Zofran) 4 mg IV Q8H PRN PRN PRN Reason: NAUSEA Oxycodone HCl (Oxyir) 5 mg PO Q4H PRN PRN PRN Reason: SEVERE PAIN (6-08/05) Potassium Chloride (K-Dur) [facility] Last Admin: 01/19/19 11:29 Dose: 40 meq Pregabalin (Lyrica) 75 mg PO BID [facility] Last Admin: 01/19/19 11:30 Dose: 75 mg Sodium Chloride () 5 - 15 ml IV UD PRN PRN Reason: SALINE FLUSH Last Admin: 01/18/19 18:14 Dose: 10 ml Warfarin Sodium (Coumadin (Pbkc)) 10 mg PO DAILY@1700 BUNNY; Protocol Zolpidem Tartrate (Ambien (Generic)) 5 mg PO QHS PRN PRN PRN Reason: INSOMNIA - Past Medical History Past Medical History (Chronic Problems): Chronic Problems (Last Reviewed 01/18/19 @ 04:24 by Johnny Romeo MD) Chronic renal insufficiency (Chronic) Chronic atrial fibrillation (Chronic) Hypertension (Chronic) Atrial fibrillation (Chronic) CLL (chronic lymphocytic leukemia) (Chronic) - Past Surgical History Surgical History: appendectomy, cholecystectomy, hysterectomy, - - Social History Smoking Status: Never smoker Alcohol: None Drugs: None - Family History Maternal Family History: Family History (Last Reviewed 01/18/19 @ 04:24 by Johnny Romeo MD) Mother Hypertension Heart disease Father Diabetes Review of Systems Constitutional: Denies: Chills, Fever, Weight Change HEENT: Denies: Head Aches, Sinus Congestion, Sinus Drainage Cardiovascular: Denies: Chest Pain, Palpitations Respiratory: Denies: Cough, Shortness of breath at rest, Sputum production Gastrointestinal: Denies: Abdominal Pain, Nausea, Vomiting Genitourinary: Denies: Dysuria Musculoskeletal: Denies: Joint Pain, Joint Tenderness Skin: Denies: Rash, Wounds Neurological: Denies: Numbness, Tingling, Focal weakness Psychiatric: Denies: Anxiety, Depression, Homicidal Ideations, Suicidal Ideations Hematologic/ Lymphatic: Denies: Easy Bruising, Easy Bleeding Patient Problems: Active and Suspected Problems (Last Reviewed 01/18/19 @ 04:24 by Johnny Romeo MD) Hyponatremia with excess extracellular fluid volume (Acute) Acute exacerbation of CHF (congestive heart failure) (Suspected) - Physical Exam General: Alert, Oriented x3, Cooperative HEENT: Atraumatic, PERRLA, EOMI, Normocephalic Neck: Supple, No JVD, Negative Carotid Bruits Lungs: Clear to auscultation, Normal air movement Cardiovascular: Regular rate, No murmurs Abdomen: Bowel Sounds Present, Soft, Non Tender Extremities: No edema, Capillary Refill Less than 3 Seconds Skin: Rash Present Musculoskeletal: No Tenderness to Palpation of Joints or Extremities Neurological: Cranial nerves II-XII grossly intact Vital Signs Temp Pulse Resp BP Pulse Ox 97.9 F 55 L 18 122/60 H 92 01/19/19 08:44 01/19/19 08:44 01/19/19 08:44 01/19/19 08:44 01/19/19 09:10 Oxygen Delivery Method Room Air Weight: 91.1 kg Body Mass Index (BMI) 33.3 Intake and Output for Last 24 Hours 01/17/19 01/18/19 01/19/19 23:59 23:59 23:59 Intake Total 1600 / 1600 250 / 250 Output Total 1200 / 1200 1250 / 1250 Balance 400 / 400 -1000 / -1000 Laboratory Tests Past 24 Hrs 01/17/19 01/17/19 01/17/19 23:05 23:05 23:05 WBC RBC Hgb Hct MCV MCH MCHC RDW RDW Differential Plt Count MPV Immature Gran % (Auto) Neut % (Auto) Lymph % (Auto) [place] % (Auto) Eos % (Auto) Baso % (Auto) Absolute Neuts (auto) Absolute Lymphs (auto) Total Counted PT INR Sodium Potassium Chloride Carbon Dioxide Anion Gap BUN Creatinine Estim Creat Clear Calc Est GFR (MDRD) Af Amer Est GFR (MDRD) Non-Af BUN/Creatinine Ratio Glucose Calcium Total Bilirubin AST ALT Alkaline Phosphatase Total Protein Albumin Globulin Albumin/Globulin Ratio Urine Osmolality 220 Ur Random Sodium 46 Urine Creatinine 42.20 Hepatitis A IgM Ab Hepatitis A Ab Total Hep Bs Antigen Hep B Core Total Ab Hep B Core IgM Ab 01/19/19 01/19/19 01/19/19 04:16 04:16 04:16 WBC 8.0 RBC 2.88 L Hgb 9.3 L Hct 28.8 L MCV 100.0 H MCH 32.3 H MCHC 32.3 RDW 15.8 H RDW Differential 52.9 H Plt Count 133 L MPV 8.7 Immature Gran % (Auto) 0.300 Neut % (Auto) 49.2 Lymph % (Auto) 41.0 [place] % (Auto) 5.9 Eos % (Auto) 3.3 Baso % (Auto) 0.3 Absolute Neuts (auto) 3.9 Absolute Lymphs (auto) 3.27 Total Counted Not Reportable PT 23.5 H INR 2.1 Sodium 128 L Potassium 4.0 Chloride 88 L Carbon Dioxide 32.0 Anion Gap 8 BUN 31 H Creatinine 1.81 H Estim Creat Clear Calc 25.14 Est GFR (MDRD) Af Amer 35 L Est GFR (MDRD) Non-Af 29 L BUN/Creatinine Ratio 17.1 Glucose 114 H Calcium 8.5 Total Bilirubin 1.10 H AST 38 H ALT 55 Alkaline Phosphatase 96 Total Protein 5.5 L Albumin 2.6 L Globulin 2.9 Albumin/Globulin Ratio 0.9 Urine Osmolality Ur Random Sodium Urine Creatinine Hepatitis A IgM Ab Hepatitis A Ab Total Hep Bs Antigen Hep B Core Total Ab Hep B Core IgM Ab 01/19/19 04:16 WBC RBC Hgb Hct MCV MCH MCHC RDW RDW Differential Plt Count MPV Immature Gran % (Auto) Neut % (Auto) Lymph % (Auto) [place] % (Auto) Eos % (Auto) Baso % (Auto) Absolute Neuts (auto) Absolute Lymphs (auto) Total Counted PT INR Sodium Potassium Chloride Carbon Dioxide Anion Gap BUN Creatinine Estim Creat Clear Calc Est GFR (MDRD) Af Amer Est GFR (MDRD) Non-Af BUN/Creatinine Ratio Glucose Calcium Total Bilirubin AST ALT Alkaline Phosphatase Total Protein Albumin Globulin Albumin/Globulin Ratio Urine Osmolality Ur Random Sodium Urine Creatinine Hepatitis A IgM Ab Pending Hepatitis A Ab Total Pending Hep Bs Antigen Pending Hep B Core Total Ab Pending Hep B Core IgM Ab Pending Assessment/Plan All Active Problems (Last Reviewed 01/18/19 @ 04:24 by Johnny Romeo MD) Hyponatremia with excess extracellular fluid volume (Acute) 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 however she is on high dose of acyclovir hence we cant let her get dehydrated either will likely cut back on lasix tomorrow continue other mediations as before d/w hospitalist team
--- NOTE | 2019-01-19 14:18 | CON.PCM_ITS ---
Problem List (1) Chronic renal insufficiency Status: Chronic (2) Acute exacerbation of CHF (congestive heart failure) Status: Suspected Consultation - Renal 01/19/19 PCP/ Referring MD: Requesting physician: Dr Munoz Primary care physician: Israel Bucio DO Reason for Consultation:: CKD CHF - History of Present Illness History of Present Illness: The patient is a 73 year old F well known to us. she has known history of CKD stage 3 with baseline creatinine around 1.6 to 1.8. history of CLL which is stable. some proteinuria which was assumed to be related to CLL> overall stable CKD developed shingles 4 weeks ago, recently started on Acyclovir. was told to stay hydrated hence increased quantity of fluids developed worsening edema for last 2 weeks. she has some edema at baseline echo reviewed UA does not show any proteinuria - Allergies Allergies: Allergies erythromycin base [Erythromycin Base] Adverse Reaction (Intermediate, Verified 01/04/19 09:44) Unknown Penicillins Adverse Reaction (Intermediate, Verified 01/04/19 09:44) Rash - Current Medications Current Medications: Current Medications Acetaminophen (Tylenol) 650 mg PO Q6H PRN PRN PRN Reason: Mild Pain (scale 0-3)/T>100.7 Last Admin: 01/19/19 11:28 Dose: 650 mg Acyclovir (Zovirax) 800 mg PO 5X/DAY [facility] Stop: 01/21/19 22:01 Last Admin: 01/19/19 11:30 Dose: 800 mg Allopurinol (Zyloprim) 100 mg PO DAILYCM [facility] Last Admin: 01/19/19 11:30 Dose: 100 mg Atenolol (Tenormin (Beta Paras)) 100 mg PO DAILY [facility] Last Admin: 01/19/19 08:48 Dose: Not Given Bisacodyl (Dulcolax) 5 mg PO DAILY PRN PRN PRN Reason: Constipation Clonidine (Catapres) 0.2 mg PO BID [facility] Last Admin: 01/19/19 11:30 Dose: 0.2 mg Furosemide (Lasix) 40 mg IV Q8 BUNNY Losartan Potassium (Cozaar) 50 mg PO DAILY [facility] Last Admin: 01/19/19 11:30 Dose: 50 mg Magnesium Hydroxide (Milk Of Magnesia) 30 ml PO DAILY PRN PRN Reason: Constipation Morphine Sulfate () 2 mg IV Q4H PRN PRN PRN Reason: SEVERE PAIN (6-10/10) Multivit[facility] ([facility]) [facility] Last Admin: 01/19/19 11:28 Dose: 1 tablet Multivitamins (Allbee W/C Caplet, Thera B Comp/C) [facility] Last Admin: 01/19/19 11:28 Dose: 1 capsule Nutritional Formula (Lactose Free) (Ensure Enlive) 120 ml PO 4X/DAY [facility] Last Admin: 01/19/19 08:48 Dose: Not Given Ondansetron HCl (Zofran) 4 mg IV Q8H PRN PRN PRN Reason: NAUSEA Oxycodone HCl (Oxyir) 5 mg PO Q4H PRN PRN PRN Reason: SEVERE PAIN (6-08/05) Potassium Chloride (K-Dur) [facility] Last Admin: 01/19/19 11:29 Dose: 40 meq Pregabalin (Lyrica) 75 mg PO BID [facility] Last Admin: 01/19/19 11:30 Dose: 75 mg Sodium Chloride () 5 - 15 ml IV UD PRN PRN Reason: SALINE FLUSH Last Admin: 01/18/19 18:14 Dose: 10 ml Warfarin Sodium (Coumadin (Pbkc)) 10 mg PO DAILY@1700 BUNNY; Protocol Zolpidem Tartrate (Ambien (Generic)) 5 mg PO QHS PRN PRN PRN Reason: INSOMNIA - Past Medical History Past Medical History (Chronic Problems): Chronic Problems (Last Reviewed 01/18/19 @ 04:24 by Johnny Romeo MD) Chronic renal insufficiency (Chronic) Chronic atrial fibrillation (Chronic) Hypertension (Chronic) Atrial fibrillation (Chronic) CLL (chronic lymphocytic leukemia) (Chronic) - Past Surgical History Surgical History: appendectomy, cholecystectomy, hysterectomy, - - Social History Smoking Status: Never smoker Alcohol: None Drugs: None - Family History Maternal Family History: Family History (Last Reviewed 01/18/19 @ 04:24 by Johnny Romeo MD) Mother Hypertension Heart disease Father Diabetes Review of Systems Constitutional: Denies: Chills, Fever, Weight Change HEENT: Denies: Head Aches, Sinus Congestion, Sinus Drainage Cardiovascular: Denies: Chest Pain, Palpitations Respiratory: Denies: Cough, Shortness of breath at rest, Sputum production Gastrointestinal: Denies: Abdominal Pain, Nausea, Vomiting Genitourinary: Denies: Dysuria Musculoskeletal: Denies: Joint Pain, Joint Tenderness Skin: Denies: Rash, Wounds Neurological: Denies: Numbness, Tingling, Focal weakness Psychiatric: Denies: Anxiety, Depression, Homicidal Ideations, Suicidal Ideations Hematologic/ Lymphatic: Denies: Easy Bruising, Easy Bleeding Patient Problems: Active and Suspected Problems (Last Reviewed 01/18/19 @ 04:24 by Johnny Romeo MD) Hyponatremia with excess extracellular fluid volume (Acute) Acute exacerbation of CHF (congestive heart failure) (Suspected) - Physical Exam General: Alert, Oriented x3, Cooperative HEENT: Atraumatic, PERRLA, EOMI, Normocephalic Neck: Supple, No JVD, Negative Carotid Bruits Lungs: Clear to auscultation, Normal air movement Cardiovascular: Regular rate, No murmurs Abdomen: Bowel Sounds Present, Soft, Non Tender Extremities: No edema, Capillary Refill Less than 3 Seconds Skin: Rash Present Musculoskeletal: No Tenderness to Palpation of Joints or Extremities Neurological: Cranial nerves II-XII grossly intact Vital Signs Temp Pulse Resp BP Pulse Ox 97.9 F 55 L 18 122/60 H 92 01/19/19 08:44 01/19/19 08:44 01/19/19 08:44 01/19/19 08:44 01/19/19 09:10 Oxygen Delivery Method Room Air Weight: 91.1 kg Body Mass Index (BMI) 33.3 Intake and Output for Last 24 Hours 01/17/19 01/18/19 01/19/19 23:59 23:59 23:59 Intake Total 1600 / 1600 250 / 250 Output Total 1200 / 1200 1250 / 1250 Balance 400 / 400 -1000 / -1000 Laboratory Tests Past 24 Hrs 01/17/19 01/17/19 01/17/19 23:05 23:05 23:05 WBC RBC Hgb Hct MCV MCH MCHC RDW RDW Differential Plt Count MPV Immature Gran % (Auto) Neut % (Auto) Lymph % (Auto) [place] % (Auto) Eos % (Auto) Baso % (Auto) Absolute Neuts (auto) Absolute Lymphs (auto) Total Counted PT INR Sodium Potassium Chloride Carbon Dioxide Anion Gap BUN Creatinine Estim Creat Clear Calc Est GFR (MDRD) Af Amer Est GFR (MDRD) Non-Af BUN/Creatinine Ratio Glucose Calcium Total Bilirubin AST ALT Alkaline Phosphatase Total Protein Albumin Globulin Albumin/Globulin Ratio Urine Osmolality 220 Ur Random Sodium 46 Urine Creatinine 42.20 Hepatitis A IgM Ab Hepatitis A Ab Total Hep Bs Antigen Hep B Core Total Ab Hep B Core IgM Ab 01/19/19 01/19/19 01/19/19 04:16 04:16 04:16 WBC 8.0 RBC 2.88 L Hgb 9.3 L Hct 28.8 L MCV 100.0 H MCH 32.3 H MCHC 32.3 RDW 15.8 H RDW Differential 52.9 H Plt Count 133 L MPV 8.7 Immature Gran % (Auto) 0.300 Neut % (Auto) 49.2 Lymph % (Auto) 41.0 [place] % (Auto) 5.9 Eos % (Auto) 3.3 Baso % (Auto) 0.3 Absolute Neuts (auto) 3.9 Absolute Lymphs (auto) 3.27 Total Counted Not Reportable PT 23.5 H INR 2.1 Sodium 128 L Potassium 4.0 Chloride 88 L Carbon Dioxide 32.0 Anion Gap 8 BUN 31 H Creatinine 1.81 H Estim Creat Clear Calc 25.14 Est GFR (MDRD) Af Amer 35 L Est GFR (MDRD) Non-Af 29 L BUN/Creatinine Ratio 17.1 Glucose 114 H Calcium 8.5 Total Bilirubin 1.10 H AST 38 H ALT 55 Alkaline Phosphatase 96 Total Protein 5.5 L Albumin 2.6 L Globulin 2.9 Albumin/Globulin Ratio 0.9 Urine Osmolality Ur Random Sodium Urine Creatinine Hepatitis A IgM Ab Hepatitis A Ab Total Hep Bs Antigen Hep B Core Total Ab Hep B Core IgM Ab 01/19/19 04:16 WBC RBC Hgb Hct MCV MCH MCHC RDW RDW Differential Plt Count MPV Immature Gran % (Auto) Neut % (Auto) Lymph % (Auto) [place] % (Auto) Eos % (Auto) Baso % (Auto) Absolute Neuts (auto) Absolute Lymphs (auto) Total Counted PT INR Sodium Potassium Chloride Carbon Dioxide Anion Gap BUN Creatinine Estim Creat Clear Calc Est GFR (MDRD) Af Amer Est GFR (MDRD) Non-Af BUN/Creatinine Ratio Glucose Calcium Total Bilirubin AST ALT Alkaline Phosphatase Total Protein Albumin Globulin Albumin/Globulin Ratio Urine Osmolality Ur Random Sodium Urine Creatinine Hepatitis A IgM Ab Pending Hepatitis A Ab Total Pending Hep Bs Antigen Pending Hep B Core Total Ab Pending Hep B Core IgM Ab Pending Assessment/Plan All Active Problems (Last Reviewed 01/18/19 @ 04:24 by Johnny Romeo MD) Hyponatremia with excess extracellular fluid volume (Acute) termination clerk (current) use of anticoagulants (Acute) CKD 3 baseline 1.8 Anasarca presumably related to diastolic heart failure UA does now show a lot of protein Cr is stable overall ok with IV lasix for now. however she is on high dose of acyclovir hence we cant let her get dehydrated either will likely cut back on lasix tomorrow continue other mediations as before d/w hospitalist team
--- NOTE | 2019-01-19 14:48 | US_ITS ---
STUDY: ABDOMINAL ULTRASOUND - RIGHT UPPER QUADRANT REASON FOR VISIT: Female, 73 years old. Elevated LFTs. TECHNIQUE: Ultrasound evaluation of the right upper quadrant was performed with real-time and static graham-scale imaging. TECHNICAL QUALITY: Examination limited due to the patient?s condition. COMPARISON: CT of the abdomen and pelvis, June 09, 2018. FINDINGS: Liver: The liver measures 12.2 cm. There is normal echogenicity of the liver. The bile ducts are within normal limits. There is hepatic color flow. The direction of portal flow is hepatopetal. There is no demonstrated mass lesion. Gallbladder: The patient is status post cholecystectomy. Common Bile Duct (C.B.D.): The common bile duct measures 7.1 mm. No filling defect. Pancreas: Normal size of the head, body and proximal tail of the pancreas. The distal tails obscured by bowel gas. There is normal echogenicity of the pancreas. There is no demonstrated pancreatic mass or cyst. Right Kidney: Normal size of the right kidney. The right kidney measures 10.9 cm. Normal renal cortex. The right cortex measures 1.3 cm. There is a 2.7 x 2.9 x 2.7 cm cyst off the lateral cortex. There is no right hydronephrosis. US/Liver IMPRESSION: 1. Right renal cyst. This was present on the previous CT. 2. Otherwise normal postcholecystectomy abdominal ultrasound. Electronically Signed: Jac Peter DO at 11:36 EDT Tel [phone], Service support ,
--- NOTE | 2019-01-19 15:24 | CON.PCM_ITS ---
Problem List (1) Atrial fibrillation Status: Chronic Qualifiers: Atrial fibrillation type: persistent Qualified Code(s): I48.1 - Persistent atrial fibrillation (2) Acute exacerbation of CHF (congestive heart failure) Status: Acute Qualifiers: Heart failure type: diastolic Qualified Code(s): I50.33 - Acute on chronic diastolic (congestive) heart failure (3) Hypertension Status: Chronic Qualifiers: Hypertension type: essential hypertension Qualified Code(s): I10 - Essent ial (primary) hypertension (4) Chronic renal insufficiency Status: Chronic (5) CLL (chronic lymphocytic leukemia) Status: Chronic Reason for Consult Date of Consultation: 01/19/19 History of Present Illness: The patient is a 73 year old female with a past medical history of atrial fibrillation, hypertension, chronic renal insufficiency, and CLL who is referred for evaluation of volume overload thought compatible with underlying acute diastolic mediated CHF. The patient was being evaluated as an outpatient for her diagnosis of atrial fibrillation. She was on rate control therapy and anticoagulant therapy. She was being considered for future outpatient synchronized biphasic DC cardioversion once her anticoagulation status was appropriate. She states she was doing well until recently. Recently she developed increased weight gain and felt she had increased fluid retention especially involving her lower extremities. Thus she presented to the hospital for further evaluation. Since being in the hospital she has been evaluated by internal medicine and treated with diuretic therapy and has had improvement in her volume status. She denies any recent chest discomfort. She states she has had no acute shortness of breath or dyspnea. She describes no obvious orthopnea or PND at this time. There has been no near syncope or syncope. She states other than her volume retention she felt she was doing reasonably well. She has undergone evaluation since her hospitalization with cardiac enzymes. Her troponin I level was negative. She had a transthoracic echocardiogram. Her left ventricle was reported normal with an LVEF of 60%. Her diastolic parameters were unable to be determined secondary to her underlying atrial dysrhythmia. She had mild MR/TR. Of note, she had additional laboratory studies which demonstrated evidence of her chronic renal insufficiency, hyponatremia, and low protein/albumin levels. In the interim the patient has been dealing with shingles . She has been on medical management. [] Past Medical History Allergies/Adverse Reactions: Allergies erythromycin base [Erythromycin Base] Adverse Reaction (Intermediate, Verified 01/04/19 09:44) Unknown Penicillins Adverse Reaction (Intermediate, Verified 01/04/19 09:44) Rash Home Medications: Ambulatory Orders Medication Instructions Recorded B-Complex with Vitamin C 1 ea PO DAILY 07/18/14 Clonidine HCl [Catapres] 0.2 mg PO BID 07/18/14 Multivitamins,Therapeutic 1 tab PO DAILY 07/18/14 [Multivitamin] Ubidecarenone [Co Q-10] 50 mg PO DAILY 07/18/14 Allopurinol [Zyloprim] 100 mg PO DAILYCM 01/20/17 atenolol 100 mg tablet 100 mg PO DAILY tab 07/23/18 magnesium citrate 100 mg tablet 1,000 mg PO DAILY tab 07/23/18 warfarin 4 mg tablet 8 mg PO DAILY #60 tab 09/30/18 Telmisartan 40 mg PO DAILY 12/29/18 hydrochlorothiazide 25 mg tablet 12.5 mg PO DAILY tab 01/04/19 furosemide 40 mg tablet 80 mg PO BID 01/15/19 potassium chloride ER 20 mEq 20 meq PO DAILY #30 tab 01/15/19 tablet,extended release Acyclovir 800 mg PO Q4H 01/17/19 Gabapentin [Neurontin] 300 mg PO TID 01/17/19 Past Medical History (Chronic Problems): Chronic Problems (Last Reviewed 01/18/19 @ 04:24 by Johnny Romeo MD) Chronic renal insufficiency (Chronic) Chronic atrial fibrillation (Chronic) Hypertension (Chronic) Atrial fibrillation (Chronic) CLL (chronic lymphocytic leukemia) (Chronic) Surgical History: appendectomy, cholecystectomy, hysterectomy, - - *Family History Maternal Family History: Family History (Last Reviewed 01/18/19 @ 04:24 by Johnny Romeo MD) Mother Hypertension Heart disease Father Diabetes Lives: Alone Smoking Status: Never smoker Alcohol: None Drugs: None Review of Systems - Review of Systems General: Denies: Fever, Night Sweats, Fatigue Cardiovascular: Reports: Peripheral Edema. Denies: Chest Discomfort, Shortness of Breath, Orthopnea, PND, Palpitations, Lightheadedness, Dizziness, Near Syncope, Syncope Respiratory: Denies: Cough, Sputum Production, Hemoptysis Gastrointestinal: Denies: Hematemesis, Hematochezia, Melena Genitourinary: Denies: Dysuria, Hematuria Skin: Denies: Rash Subjectve: This is a 73-year-old white female who appears to be resting comfortably at the moment in no acute distress. Objective: Vital Signs Temp Pulse Resp BP Pulse Ox 96.1 F L 45 L 12 104/49 L 100 01/19/19 15:03 01/19/19 15:03 01/19/19 15:03 01/19/19 15:03 01/19/19 15:03 Oxygen Delivery Method Room Air Weight: 200 lb 13.458 oz Body Mass Index (BMI) 33.3 Intake and Output for Last 24 Hours 01/17/19 01/18/19 01/19/19 23:59 23:59 23:59 Intake Total 1600 / 1600 250 / 250 Output Total 1200 / 1200 1250 / 1250 Balance 400 / 400 -1000 / -1000 General: Awake, Alert, Oriented x 3, Cooperative, No Acute Distress HEENT: Atraumatic, Normocephalic, PERRL, EOMI, Sclera Non Icteric Oral: Moist Mucosa Neck: Supple, Good ROM, No JVD Lungs: Clear to auscultation Cardiovascular: Irregular Rhythm, Normal S1, Normal S2 Vascular: No Carotid Bruits Abdomen: Bowel Sounds Present, Soft, Non Tender Extremities: Moderate RLE Edema, Moderate LLE Edema, - - Bilateral lower extremity Dave wraps Psych/Mental Status: Appropriate 01/19/19 04:16: WBC 8.0, RBC 2.88 L, Hgb 9.3 L, Hct 28.8 L, MCV 100.0 H, MCH 32.3 H, MCHC 32.3, RDW 15.8 H, RDW Differential 52.9 H, Plt Count 133 L, MPV 8.7, Immature Gran % (Auto) 0.300, Neut % (Auto) 49.2, Lymph % (Auto) 41.0, [place] % (Auto) 5.9, Eos % (Auto) 3.3, Baso % (Auto) 0.3, Absolute Neuts (auto) 3.9, Total Counted Not Reportable 01/19/19 04:16: PT 23.5 H, INR 2.1 01/19/19 04:16: Sodium 128 L, Potassium 4.0, Chloride 88 L, Carbon Dioxide 32.0, Anion Gap 8, BUN 31 H, Creatinine 1.81 H, Est GFR (MDRD) Af Amer 35 L, Est GFR (MDRD) Non-Af 29 L, BUN/Creatinine Ratio 17.1, Glucose 114 H, Calcium 8.5, Total Bilirubin 1.10 H Rhythm: Atrial fibrillation EKG: Atrial fibrillation; septal SD of indeterminate age cannot be excluded; nonspecific ST/T wave abnormality ECHO: Please see official report CXR: No acute cardiopulmonary disease process appreciated: Please see official report Assessment/Plan 1. Atrial fibrillation The patient does have atrial fibrillation. She is continuing rate control therapy and anticoagulant therapy. At some point in time when she is symptomat ically improved/clinically improved she can be considered for a future attempt at synchronized biphasic DC cardioversion. However, noted on her previous echocardiograms is concern of marked left atrial enlargement which may make it challenging to obtain and maintain sinus rhythm. The patient is aware of this. 2. CHF: Acute diastolic There is concern of the patient having an acute diastolic CHF event. This is despite her diastolic parameters being indeterminant on her echocardiographic studies based upon her underlying atrial dysrhythmia. At the moment she has been treated medically. This is included diuretic therapy. She appears to be improving. She should continue medical management and follow-up. 3. Hypertension The patient will continue medical management with adjustment as needed. 4. Chronic renal insufficiency This needs to be taken into consideration if the patient would require future evaluation with an IV contrast related study. In the meantime this needs to be monitored with respect to concerns of the patient's underlying medications, electrolyte disorders, etc. 5. CLL The patient will continue evaluation care per internal medicine and hematology/oncology. Of note, the patient is also dealing with shingles . She is being evaluated and cared for by internal medicine. At the same time the patient is also noted to have evidence of routine and low albumin levels. This may be contributing to her peripheral pitting edema as well. Overall, from a cardiac standpoint, she will continue conservative medical management at this time. She is already had noninvasive evaluation. She may need future cardiovascular evaluation for further evaluate her for other cardiovascular issues that could contribute to her symptoms and/or findings. This could include noninvasive study such as a pharmacologic stress nuclear imaging study once she is improved and able to undergo such a study. Comment: The patient's case was discussed and reviewed with the patient and Dr. Munoz. This note was generated using a voice recognition system and there may be incorrect words, spelling or punctuation that were not noted when reviewing the office note prior to saving.
[2019-01-19] MEDS: Furosemide 40 MG/4 ML Vial IV ×2 (15:31→21:41)
[2019-01-19] MEDS: 0.9% NaCl Peripheral Flush Adult/Peds IV ×2 (15:35→21:44)
[2019-01-19] MEDS: Tamsulosin HCl 0.4 MG Capsule PO (18:44)
[2019-01-19] MEDS: Morphine 2 MG/ML Syringe IV (18:50)
[2019-01-19] MEDS: oxyCODONE 5 MG Tablet PO (21:39)
[2019-01-20] VITALS (14 sets, daily range): BP systolic 81–155; BP diastolic 34–63; PULSE 34–64; RESP 16–20; TEMP 36.3–37.2; O2SAT 91–98
[2019-01-20] MEDS: 0.9% NaCl Peripheral Flush Adult/Peds IV ×2 (00:02→21:52)
--- NOTE | 2019-01-20 01:09 | NURSING ---
Pt. urine in doran catheter bag clearing. No longer having hematuria. Urine pale yellow. Will monitor.
[2019-01-20] MEDS: Acetaminophen 325 MG Tablet 650 MG PO ×2 (03:22→17:40)
[2019-01-20 04:07] LABS: HEPATITIS B SURFACE AG Negative (Negative); Hepatitis A AB, Total Negative (Negative); Hepatitis A IgM Antibody Negative (Negative); Hepatitis B Core AB IgM Negative (Negative); Hepatitis B Core Ab Total Negative (Negative); Hepatitis C Ab <0.1 s/co ratio (0.0-0.9)
[2019-01-20 05:40] LABS: Absolute Lymphocyte Count 2.35 X10^3/ul (0.83-4.51); Basophil# 0.02 X10^3/uL; Basophil% 0.4 % (0-1); Hematocrit 31.6 % (37-47); Lymphocyte # 2.35 X10^3/ul (4.0); Lymphocyte % 47.2 % (19-41); Mean Corp Hgb Conc 31.6 g/gl (32-36); Mean Corpuscular Hgb 32.3 pg (27.0-32.0); Mean Corpuscular Volume 101.9 fL (81-99); Mean Platelet Vol. 8.7 fl (6.2-12.0); Monocyte# 0.39 X10^3/uL; Monocyte% 7.8 % (0-10); Neutrophil % 40.2 % (47-70); Platelet Count 154 K/mm3 (150-450); RBC Distribution Width CV 16.4 % (11.6-14.6); RBC Distribution Width SD 57.5 fl (35.1-43.9)
[2019-01-20 05:41] LABS: POSITIVE COUNT NO; POSITIVE DIFFERENTIAL NO; POSITIVE MORPHOLOGY NO
[2019-01-20 05:43] LABS: International Normalized Ratio 1.9; Prothrombin Time (Protime)PT. 21.9 SECONDS (11.7-14.9)
[2019-01-20] MEDS: Acyclovir 800 MG Tablet PO ×4 (05:53→15:42)
[2019-01-20 05:54] LABS: ALB/GLOB Ratio 0.8 RATIO (0.9-2.4); AST(SGOT) 24 U/L (15-37); Alanine Aminotransfer ALT/SGPT 49 U/L (13-56); Albumin, Serum 2.7 g/dL (3.2-5.0); Alkaline Phosphatase 92 U/L (45-117); Anion Gap 9 (5-15); BUN 35 mg/dL (7-18); BUN/Creat Ratio 19.1 RATIO (10-20); Chloride 92 mmol/L (98-107); Creatinine, Serum 1.83 mg/dL (0.55-1.02); EST Glomerular Filtration Rate 29 mL/min (>60); Est Glom Filt Rate - Afr Amer 35 mL/min (>60); Estimated Creatinine Clearance 24.87 ml/min; Globulin 3.3 g/dL (2.2-4.2); Glucose 119 mg/dL (74-106); Potassium 4.2 mmol/L (3.5-5.1); Sodium Level 132 mmol/L (136-145)
--- NOTE | 2019-01-20 08:58 | EKG12_ITS ---
Test Reason : Blood Pressure : / mmHG Vent. Rate : 050 BPM Atrial Rate : 267 BPM P-R Int : 000 ms QRS Dur : 082 ms QT Int : 446 ms P-R-T Axes : 000 034 062 degrees QTc Int : 406 ms Atrial fibrillation with slow ventricular response with premature ventricular or aberrantly conducted complexes Possible Anterior infarct , age undetermined Abnormal ECG When compared with ECG of 17-JAN-2019 23:36, MANUAL COMPARISON REQUIRED, DATA IS UNCONFIRMED Confirmed by HEATHER CHAN, SAMM ([id number]), supervising film or videotape editor MONICA CRYSTAL ([id number]) on 01/22/2019 1:50:42 PM Referred By: Johnny Romeo Confirmed By:SAMM ROMERO MD
[2019-01-20 10:15] LABS: Vitamin B12 1048 pg/mL (211-911)
[2019-01-20] MEDS: Allopurinol 100 MG Tablet PO (10:23)
[2019-01-20] MEDS: Multivitamins,Therapeutic Tablet 1 TABLET PO (10:23)
[2019-01-20] MEDS: Vitamin B Comp W-C Capsule 1 CAP PO (10:23)
[2019-01-20] MEDS: Pregabalin 75 MG Capsule PO (10:23)
[2019-01-20] MEDS: cloNIDine HCl 0.1 MG Tablet PO ×2 (10:30→21:38)
[2019-01-20] MEDS: oxyCODONE 5 MG Tablet PO ×3 (10:30→21:37)
[2019-01-20 10:37] LABS: Iron Binding Capacity,Total 315 ug/dL (250-450)
--- NOTE | 2019-01-20 11:29 | PCM.PN.REN ---
Patient Problems: Active and Suspected Problems (Last Reviewed 01/18/19 @ 04:24 by Johnny Romeo MD) Hyponatremia with excess extracellular fluid volume (Acute) Acute exacerbation of CHF (congestive heart failure) (Acute) Subjective: SOB better creatinine 1.8 UO 4L /24 hrs - Physical Exam General: Alert, Oriented x3, Cooperative HEENT: Atraumatic, PERRLA, EOMI, Normocephalic Neck: Supple, No JVD, Negative Carotid Bruits Lungs: Clear to auscultation, Normal air movement Cardiovascular: Regular rate, No murmurs Abdomen: Bowel Sounds Present, Soft, Non Tender Extremities: No edema, Capillary Refill Less than 3 Seconds Skin: No rashes, No breakdown Musculoskeletal: No Tenderness to Palpation of Joints or Extremities Neurological: Cranial nerves II-XII grossly intact Psych/Mental Status: Normal Affect, Appropriate Vital Signs Temp Pulse Resp BP Pulse Ox 98.6 F 42 L 16 113/57 L 98 01/20/19 09:50 01/20/19 09:50 01/20/19 09:50 01/20/19 09:50 01/20/19 09:50 Oxygen Delivery Method Room Air Weight: 89.4 kg Body Mass Index (BMI) 33.3 Intake and Output for Last 24 Hours 01/18/19 01/19/19 01/20/19 23:59 23:59 23:59 Intake Total 1600 / 1600 1150 / 1150 100 / 100 Output Total 1200 / 1200 4725 / 4725 275 / 275 Balance 400 / 400 -3575 / -3575 -175 / -175 Laboratory Tests Past 24 Hrs 01/20/19 01/20/19 01/20/19 05:16 05:16 05:16 WBC 5.0 RBC 3.10 L Hgb 10.0 L Hct 31.6 L MCV 101.9 H MCH 32.3 H MCHC 31.6 L RDW 16.4 H RDW Differential 57.5 H Plt Count 154 MPV 8.7 Immature Gran % (Auto) 0.400 Neut % (Auto) 40.2 L Lymph % (Auto) 47.2 H [place] % (Auto) 7.8 Eos % (Auto) 4.0 Baso % (Auto) 0.4 Absolute Neuts (auto) 2.0 Absolute Lymphs (auto) 2.35 Total Counted Not Reportable PT 21.9 H INR 1.9 Sodium 132 L Potassium 4.2 Chloride 92 L Carbon Dioxide 31.0 Anion Gap 9 BUN 35 H Creatinine 1.83 H Estim Creat Clear Calc 24.87 Est GFR (MDRD) Af Amer 35 L Est GFR (MDRD) Non-Af 29 L BUN/Creatinine Ratio 19.1 Glucose 119 H Calcium 9.0 TIBC Total Bilirubin 0.60 AST 24 ALT 49 Alkaline Phosphatase 92 Total Protein 6.0 L Albumin 2.7 L Globulin 3.3 Albumin/Globulin Ratio 0.8 L Vitamin B12 Folate 01/20/19 01/20/19 05:16 05:16 WBC RBC Hgb Hct MCV MCH MCHC RDW RDW Differential Plt Count MPV Immature Gran % (Auto) Neut % (Auto) Lymph % (Auto) [place] % (Auto) Eos % (Auto) Baso % (Auto) Absolute Neuts (auto) Absolute Lymphs (auto) Total Counted PT INR Sodium Potassium Chloride Carbon Dioxide Anion Gap BUN Creatinine Estim Creat Clear Calc Est GFR (MDRD) Af Amer Est GFR (MDRD) Non-Af BUN/Creatinine Ratio Glucose Calcium TIBC 315 Total Bilirubin AST ALT Alkaline Phosphatase Total Protein Albumin Globulin Albumin/Globulin Ratio Vitamin B12 1048 H Folate 46.00 Medical Necessity - Tobacco Use Smoking Status: Never smoker Assessment/Plan All Active Problems (Last Reviewed 01/18/19 @ 04:24 by Johnny Romeo MD) Hyponatremia with excess extracellular fluid volume (Acute) Acute exacerbation of CHF (congestive heart failure) (Acute) shelter (current) use of anticoagulants (Acute) CKD 3 baseline 1.8 Anasarca presumably related to diastolic heart failure UA does now show a lot of protein Cr is stable overall ok with IV lasix for now. however she is on high dose of acyclovir hence we cant let her get dehydrated either no chanhge in lasix continue other mediations as before
[2019-01-20 11:48] LABS: Hep B Surface Antibodies Non Reactive (.)
[2019-01-20] MEDS: Furosemide 40 MG/4 ML Vial IV ×2 (13:19→21:52)
--- NOTE | 2019-01-20 14:28 | PN_ITS ---
Patient Problems: Active and Suspected Problems (Last Reviewed 01/18/19 @ 04:24 by Johnny Romeo MD) Hyponatremia with excess extracellular fluid volume (Acute) Acute exacerbation of CHF (congestive heart failure) (Acute) Subjective: ongoing RUE pain. No CP, SOB, LH, dizziness, palp. LE edema vastly improve. No f/v. Tolerating doran. No hx urinary retention. - Physical Exam General: Alert, Oriented x3, Cooperative HEENT: Atraumatic, PERRLA, EOMI, Normocephalic Neck: Supple, No JVD, Negative Carotid Bruits Lungs: Clear to auscultation, Normal air movement Cardiovascular: Regular rate, No murmurs Abdomen: Bowel Sounds Present, Soft, Non Tender Extremities: Capillary Refill Less than 3 Seconds, Edema - trace Skin: - - zoster rash RUE Musculoskeletal: No Tenderness to Palpation of Joints or Extremities Neurological: Cranial nerves II-XII grossly intact Psych/Mental Status: Normal Affect, Appropriate, Alert and oriented to time, place, person, mood and affect Vital Signs Temp Pulse Resp BP Pulse Ox 98.6 F 51 L 16 113/57 L 98 01/20/19 09:50 01/20/19 11:25 01/20/19 09:50 01/20/19 09:50 01/20/19 09:50 Oxygen Delivery Method Room Air Weight: 197 lb 1.492 oz Body Mass Index (BMI) 33.3 Intake and Output for Last 24 Hours 01/18/19 01/19/19 01/20/19 23:59 23:59 23:59 Intake Total 1600 / 1600 1150 / 1150 100 / 100 Output Total 1200 / 1200 4725 / 4725 700 / 700 Balance 400 / 400 -3575 / -3575 -600 / -600 Laboratory Tests Past 24 Hrs 01/19/19 01/20/19 01/20/19 04:16 05:16 05:16 WBC 5.0 RBC 3.10 L Hgb 10.0 L Hct 31.6 L MCV 101.9 H MCH 32.3 H MCHC 31.6 L RDW 16.4 H RDW Differential 57.5 H Plt Count 154 MPV 8.7 Immature Gran % (Auto) 0.400 Neut % (Auto) 40.2 L Lymph % (Auto) 47.2 H [place] % (Auto) 7.8 Eos % (Auto) 4.0 Baso % (Auto) 0.4 Absolute Neuts (auto) 2.0 Absolute Lymphs (auto) 2.35 Total Counted Not Reportable PT 21.9 H INR 1.9 Sodium Potassium Chloride Carbon Dioxide Anion Gap BUN Creatinine Estim Creat Clear Calc Est GFR (MDRD) Af Amer Est GFR (MDRD) Non-Af BUN/Creatinine Ratio Glucose Calcium TIBC Total Bilirubin AST ALT Alkaline Phosphatase Total Protein Albumin Globulin Albumin/Globulin Ratio Vitamin B12 Folate Hepatitis A IgM Ab Negative Hepatitis A Ab Total Negative Hep Bs Antigen Negative Hep B Core Total Ab Negative Hep B Core IgM Ab Negative Hepatitis C Ab Confirm <0.1 Hepatitis C Comment Comment 01/20/19 01/20/19 01/20/19 05:16 05:16 05:16 WBC RBC Hgb Hct MCV MCH MCHC RDW RDW Differential Plt Count MPV Immature Gran % (Auto) Neut % (Auto) Lymph % (Auto) [place] % (Auto) Eos % (Auto) Baso % (Auto) Absolute Neuts (auto) Absolute Lymphs (auto) Total Counted PT INR Sodium 132 L Potassium 4.2 Chloride 92 L Carbon Dioxide 31.0 Anion Gap 9 BUN 35 H Creatinine 1.83 H Estim Creat Clear Calc 24.87 Est GFR (MDRD) Af Amer 35 L Est GFR (MDRD) Non-Af 29 L BUN/Creatinine Ratio 19.1 Glucose 119 H Calcium 9.0 TIBC 315 Total Bilirubin 0.60 AST 24 ALT 49 Alkaline Phosphatase 92 Total Protein 6.0 L Albumin 2.7 L Globulin 3.3 Albumin/Globulin Ratio 0.8 L Vitamin B12 1048 H Folate 46.00 Hepatitis A IgM Ab Hepatitis A Ab Total Hep Bs Antigen Hep B Core Total Ab Hep B Core IgM Ab Hepatitis C Ab Confirm Hepatitis C Comment Medical Necessity - Tobacco Use Smoking Status: Never smoker Assessment/Plan All Active Problems (Last Reviewed 01/18/19 @ 04:24 by Johnny Romeo MD) Hyponatremia with excess extracellular fluid volume (Acute) Acute exacerbation of CHF (congestive heart failure) (Acute) care home (current) use of anticoagulants (Acute) 1. Acute diastolic congestive heart failure exacerbation-continue IV Lasix, inc to TID. She has no respiratory symptoms at this time, is marked by lower extremity edema. Her weight is improving and edema vastly improved. She has good diuresis. Continue ARSEN wraps. Echo 60%, normal LV size and function, mild LVH, 1+ TVI. BNP was 500.5, TSH normal. Patient is already on beta-josh and ARB. -Consult cardiology -Pt had urinary retention, doran placed. 2. Shingles-continue oral acyclovir and isolation precautions. Gabapentin changed to lyrica with little relief. She continues topical vinegar. 3. Paroxysmal atrial fibrillation-continue Coumadin, rate is controlled, plan for outpatient cardioversion as previously planned with cardiology only rate limiting medication at this time is atenolol -bradycardia, hypotension overnight. Held atenolol this AM. -INR subtherapeutic. She is interested in pursuing NOACs. 4. Hyponatremia-suspect secondary to volume overload and use of thiazide diuretics. No further HCTZ. Hypokalemia has resolved, mag borderline low-this was replaced yesterday. Phos normal. 5. CKD stage IV-stable, nephrology consult. 6. History of CLL - WBC normal. low Hgb and platelets. 7. Hypertension-stable 8. Abnormal LFTs - normalized. Hep panel negative. Liver US unremarkable. DVT prophylaxis: Coumadin DC planning-continue to diuresis-diurese to close dry weight then home. This patient was seen by Danis Chatterjee PA-C under the supervision of Doctor Tammy.
[2019-01-20 14:50] LABS: Iron 49 ug/dL (50-170)
--- NOTE | 2019-01-20 15:21 | CASEMGMT ---
Per , pt/daughter would like to speak with this RN CM at this time regarding HHC at this time. This RN CM to room to speak with pt/daughter and daughter states that she is an aide for someone currently but the lady is in rehab currently and daughter would like to see if she could get it set up for her to be paid to be her mothers aide at this time. This RN CM advised her that we would look into this. This RN CM also inquired about setting up therapy for pt at discharge and pt/daughter state they would like OP therapy set up at this time and decline HHC therapy at this time. This RN CM advised her that would f/u with pt/daughter tomorrow regarding questions, voice understanding. Sugey RN CM
[2019-01-20] MEDS: Tamsulosin HCl 0.4 MG Capsule PO (15:42)
--- NOTE | 2019-01-20 18:41 | PN.CARD_ITS ---
Subjectve: The patient is awake and alert. She has no new acute complaints other than that related to her shingles areas. Objective: Vital Signs Temp Pulse Resp BP Pulse Ox 97.4 F L 56 L 16 155/60 H 97 01/20/19 15:22 01/20/19 15:22 01/20/19 15:22 01/20/19 15:22 01/20/19 15:22 Oxygen Delivery Method Room Air Weight: 197 lb 1.492 oz Body Mass Index (BMI) 33.3 Intake and Output for Last 24 Hours 01/18/19 01/19/19 01/20/19 23:59 23:59 23:59 Intake Total 1600 / 1600 1150 / 1150 220 / 220 Output Total 1200 / 1200 4725 / 4725 1350 / 1350 Balance 400 / 400 -3575 / -3575 -1130 / -1130 General: Awake, Alert, Oriented x 3, Cooperative, No Acute Distress HEENT: Atraumatic, Normocephalic, PERRL, EOMI, Sclera Non Icteric Oral: Moist Mucosa Neck: Supple, Good ROM, No JVD Lungs: Clear to auscultation Cardiovascular: Irregular Rhythm, Normal S1, Normal S2 Abdomen: Bowel Sounds Present, Soft, Non Tender Extremities: Trace RLE Edema, Trace LLE Edema Psych/Mental Status: Appropriate 01/20/19 05:16: WBC 5.0, RBC 3.10 L, Hgb 10.0 L, Hct 31.6 L, MCV 101.9 H, MCH 32.3 H, MCHC 31.6 L, RDW 16.4 H, RDW Differential 57.5 H, Plt Count 154, MPV 8.7, Immature Gran % (Auto) 0.400, Neut % (Auto) 40.2 L, Lymph % (Auto) 47.2 H, [place] % (Auto) 7.8, Eos % (Auto) 4.0, Baso % (Auto) 0.4, Absolute Neuts (auto) 2.0, Total Counted Not Reportable 01/20/19 05:16: PT 21.9 H, INR 1.9 01/20/19 05:16: Sodium 132 L, Potassium 4.2, Chloride 92 L, Carbon Dioxide 31.0, Anion Gap 9, BUN 35 H, Creatinine 1.83 H, Est GFR (MDRD) Af Amer 35 L, Est GFR (MDRD) Non-Af 29 L, BUN/Creatinine Ratio 19.1, Glucose 119 H, Calcium 9.0, Total Bilirubin 0.60 01/20/19 05:16: TIBC 315 01/20/19 05:16: Iron 49 L Rhythm: Atrial fibrillation with slow ventricular response: Occasional PVCs Medical Necessity - Tobacco Use Smoking Status: Never smoker Assessment/Plan 1. Atrial fibrillation The patient does have atrial fibrillation. She is continuing rate control therapy and anticoagulant therapy. At some point in time when she is symptomatically improved/clinically improved she can be considered for a future attempt at synchronized biphasic DC cardioversion. However, noted on her previous echocardiograms is concern of marked left atrial enlargement which may make it challenging to obtain and maintain sinus rhythm. The patient is aware of this. In the interim her medications are being adjusted. Her rate limiting medications are being decreased or discontinued secondary to her slow ventricular response. Also she is willing to explore other anticoagulant options other than warfarin if they are financially feasible for her. 2. CHF: Acute diastolic There is concern of the patient having an acute diastolic CHF event. This is despite her diastolic parameters being indeterminant on her echocardiographic studies based upon her underlying atrial dysrhythmia. At the moment she has been treated medically. This is included diuretic therapy. She appears to be improving. She should continue medical management and follow-up. 3. Hypertension The patient will continue medical management with adjustment as needed. This may include continuation of medications that avoid additional rate limiting effects. 4. Chronic renal insufficiency This needs to be taken into consideration if the patient would require future evaluation with an IV contrast related study. In the meantime this needs to be monitored with respect to concerns of the patient's underlying medications, electrolyte disorders, etc. 5. CLL The patient will continue evaluation care per internal medicine and hematology/oncology. Of note, the patient is also dealing with shingles . She is being evaluated and cared for by internal medicine. At the same time the patient is also noted to have evidence of routine and low albumin levels. This may be contributing to her peripheral pitting edema as well. This note was generated using a voice recognition system and there may be incorrect words, spelling or punctuation that were not noted when reviewing the office note prior to saving.
[2019-01-20] MEDS: Pregabalin 50 MG Capsule PO (21:37)
[2019-01-21] VITALS (7 sets, daily range): BP systolic 116–130; BP diastolic 44–61; PULSE 49–63; RESP 16; TEMP 36.8–37; O2SAT 95–96
[2019-01-21] MEDS: Acetaminophen 325 MG Tablet 650 MG PO ×2 (00:08→09:32)
[2019-01-21] MEDS: oxyCODONE 5 MG Tablet PO (03:37)
[2019-01-21] MEDS: Furosemide 40 MG/4 ML Vial IV (05:11)
[2019-01-21] MEDS: 0.9% NaCl Peripheral Flush Adult/Peds IV (05:11)
[2019-01-21] MEDS: Pregabalin 50 MG Capsule PO (05:11)
[2019-01-21 06:26] LABS: International Normalized Ratio 2.1; Prothrombin Time (Protime)PT. 23.7 SECONDS (11.7-14.9)
[2019-01-21 06:27] LABS: Absolute Lymphocyte Count 2.98 X10^3/ul (0.83-4.51); Absolute Neutrophil Count 1.8 X10^3/uL (2.0-7.7); Basophil# 0.03 X10^3/uL; Basophil% 0.5 % (0-1); Eosinophil# 0.23 X10^3/uL; Eosinophils% 4.1 % (0-5); Hematocrit 32.2 % (37-47); Hemoglobin 10.2 g/dl (12.0-15.0); Lymphocyte # 2.98 X10^3/ul (4.0); Lymphocyte % 52.8 % (19-41); Mean Corp Hgb Conc 31.7 g/gl (32-36); Mean Corpuscular Hgb 32.5 pg (27.0-32.0); Mean Corpuscular Volume 102.5 fL (81-99); Mean Platelet Vol. 8.6 fl (6.2-12.0); Monocyte# 0.55 X10^3/uL; Monocyte% 9.8 % (0-10); Neutrophil # 1.83 X10^3/uL (2.7-7.7); Neutrophil % 32.4 % (47-70); Platelet Count 154 K/mm3 (150-450); RBC Distribution Width CV 16.4 % (11.6-14.6); RBC Distribution Width SD 58.9 fl (35.1-43.9); Red Blood Count 3.14 M/mm3 (4.2-5.4); White Blood Count 5.6 K/mm3 (4.4-11.0)
[2019-01-21 06:40] LABS: POSITIVE COUNT NO; POSITIVE DIFFERENTIAL NO; POSITIVE MORPHOLOGY NO
[2019-01-21 06:43] LABS: ALB/GLOB Ratio 0.9 RATIO (0.9-2.4); AST(SGOT) 22 U/L (15-37); Alanine Aminotransfer ALT/SGPT 43 U/L (13-56); Albumin, Serum 2.9 g/dL (3.2-5.0); Alkaline Phosphatase 89 U/L (45-117); Anion Gap 7 (5-15); BUN 42 mg/dL (7-18); BUN/Creat Ratio 23.2 RATIO (10-20); Calcium,Total 9.4 mg/dL (8.5-10.1); Chloride 93 mmol/L (98-107); Creatinine, Serum 1.81 mg/dL (0.55-1.02); EST Glomerular Filtration Rate 29 mL/min (>60); Est Glom Filt Rate - Afr Amer 35 mL/min (>60); Estimated Creatinine Clearance 25.14 ml/min; Globulin 3.2 g/dL (2.2-4.2); Glucose 116 mg/dL (74-106); Potassium 4.7 mmol/L (3.5-5.1); Protein, Total 6.1 g/dL (6.4-8.2); Sodium Level 133 mmol/L (136-145)
[2019-01-21] MEDS: Multivitamins,Therapeutic Tablet 1 TABLET PO (09:32)
[2019-01-21] MEDS: Atenolol 25 MG Tablet PO (09:32)
[2019-01-21] MEDS: cloNIDine HCl 0.1 MG Tablet PO (09:32)
[2019-01-21] MEDS: Losartan Potassium 50 MG Tablet PO (09:33)
[2019-01-21] MEDS: Vitamin B Comp W-C Capsule 1 CAP PO (09:33)
[2019-01-21] MEDS: Allopurinol 100 MG Tablet PO (09:33)
--- NOTE | 2019-01-21 10:15 | CASEMGMT ---
Addendum entered by Palak Carpenter 01/21/19 14:00: Call to [facility]'s and per pharmacist, the Eliquis is covered by insurance but co-pay is $110.41 and the Lyrica co-pay is $444.22. Dr. Munoz updated at this time and states she will just keep pt on coumadin and gabapentin at this time. Family requesting to speak with CM again at this time. This RN CM to room with OP therapy order which was already faxed to [facility] previously. Pt's daughter, Nupur, is asking again how they can be reimbursed/compensated to care for their mother as they feel someone should be with her. Advised them that the only options for someone to be with pt all the time, would be private duty or SNF for rehab and pt/family decline both at this time. This RN CM offered [facility] again for pt for therapy/aide and pt/family decline at this time. Pt/family state they would like the OP therapy only. Advised [facility] to [facility] and daughter, Jasmine, states that the qualifications for that are 'ridiculous.' This RN CM updated pt/daughters on cost of Eliquis/Lyrica and that Dr. Munoz will just keep her on coumadin and gabapentin, voice understanding. Pt/daughters voice no further questions/concerns/needs at this time and thank this RN CM at this time. Suegy RN CM Original Note: This RN CM to room in regards to f/u with pt's daughter being paid to be her caregiver. Information provided to pt/family regarding [facility]/area agency on aging at this time, voice understanding. Pt states she would like OP therapy set up at [facility] at this time. Advised pt that this RN CM will be checking on Xarelto vs Eliquis once prescribed and will update her at that time, voices understanding. Advised pt that they are both covered but tier 3, explanation done, and pt/daughter voice understanding. Pt/daughter voices no further questions/concerns/needs at this time. Sugey RN CM
--- NOTE | 2019-01-21 11:49 | PCM.PN.REN ---
Patient Problems: Active and Suspected Problems (Last Reviewed 01/18/19 @ 04:24 by Johnny Romeo MD) Hyponatremia with excess extracellular fluid volume (Acute) Acute exacerbation of CHF (congestive heart failure) (Acute) Subjective: no new events - Physical Exam General: Alert, Oriented x3, Cooperative HEENT: Atraumatic, PERRLA, EOMI, Normocephalic Neck: Supple, No JVD, Negative Carotid Bruits Lungs: Clear to auscultation, Normal air movement Cardiovascular: Regular rate, No murmurs Abdomen: Bowel Sounds Present, Soft, Non Tender Extremities: No edema, Capillary Refill Less than 3 Seconds Skin: No rashes, No breakdown Musculoskeletal: No Tenderness to Palpation of Joints or Extremities Neurological: Cranial nerves II-XII grossly intact Psych/Mental Status: Normal Affect, Appropriate Vital Signs Temp Pulse Resp BP Pulse Ox 98.3 F 63 16 126/53 H 96 01/21/19 09:20 01/21/19 11:39 01/21/19 09:20 01/21/19 09:20 01/21/19 09:20 Oxygen Delivery Method Room Air Weight: 89.4 kg Body Mass Index (BMI) 33.3 Intake and Output for Last 24 Hours 01/19/19 01/20/19 01/21/19 23:59 23:59 23:59 Intake Total 1150 / 1150 660 / 660 120 / 120 Output Total 4725 / 4725 2750 / 2750 600 / 600 Balance -3575 / -3575 -2090 / -2090 -480 / -480 Laboratory Tests Past 24 Hrs 01/19/19 01/20/19 01/21/19 04:16 05:16 05:30 WBC 5.6 RBC 3.14 L Hgb 10.2 L Hct 32.2 L MCV 102.5 H MCH 32.5 H MCHC 31.7 L RDW 16.4 H RDW Differential 58.9 H Plt Count 154 MPV 8.6 Immature Gran % (Auto) 0.400 Neut % (Auto) 32.4 L Lymph % (Auto) 52.8 H [place] % (Auto) 9.8 Eos % (Auto) 4.1 Baso % (Auto) 0.5 Absolute Neuts (auto) 1.8 L Absolute Lymphs (auto) 2.98 Total Counted Not Reportable PT INR Sodium Potassium Chloride Carbon Dioxide Anion Gap BUN Creatinine Estim Creat Clear Calc Est GFR (MDRD) Af Amer Est GFR (MDRD) Non-Af BUN/Creatinine Ratio Glucose Calcium Iron 49 L Total Bilirubin AST ALT Alkaline Phosphatase Total Protein Albumin Globulin Albumin/Globulin Ratio Hepatitis A IgM Ab Negative Hepatitis A Ab Total Negative Hep Bs Antigen Negative Hep B Core Total Ab Negative Hep B Core IgM Ab Negative Hepatitis C Ab Confirm <0.1 Hepatitis C Comment Comment 01/21/19 01/21/19 05:30 05:30 WBC RBC Hgb Hct MCV MCH MCHC RDW RDW Differential Plt Count MPV Immature Gran % (Auto) Neut % (Auto) Lymph % (Auto) [place] % (Auto) Eos % (Auto) Baso % (Auto) Absolute Neuts (auto) Absolute Lymphs (auto) Total Counted PT 23.7 H INR 2.1 Sodium 133 L Potassium 4.7 Chloride 93 L Carbon Dioxide 33.0 H Anion Gap 7 BUN 42 H Creatinine 1.81 H Estim Creat Clear Calc 25.14 Est GFR (MDRD) Af Amer 35 L Est GFR (MDRD) Non-Af 29 L BUN/Creatinine Ratio 23.2 H Glucose 116 H Calcium 9.4 Iron Total Bilirubin 0.60 AST 22 ALT 43 Alkaline Phosphatase 89 Total Protein 6.1 L Albumin 2.9 L Globulin 3.2 Albumin/Globulin Ratio 0.9 Hepatitis A IgM Ab Hepatitis A Ab Total Hep Bs Antigen Hep B Core Total Ab Hep B Core IgM Ab Hepatitis C Ab Confirm Hepatitis C Comment Medical Necessity - Tobacco Use Smoking Status: Never smoker Assessment/Plan All Active Problems (Last Reviewed 01/18/19 @ 04:24 by Johnny Romeo MD) Hyponatremia with excess extracellular fluid volume (Acute) Acute exacerbation of CHF (congestive heart failure) (Acute) ad terminal makeup operator (current) use of anticoagulants (Acute) CKD 3 baseline 1.8 Anasarca presumably related to diastolic heart failure UA does now show a lot of protein Cr is stable overall Volume status is better. bed scales today reading as 89. apparently her usual weight is around 86 kg or so continue same medications for now ok to dc today will arrange follow up after dc d/w Dr Munoz
--- NOTE | 2019-01-21 11:58 | DCINST_ITS ---
- Discharge Diagnoses Current Active Problems: Current Active and Chronic Problems (Last Reviewed 01/18/19 @ 04:24 by Johnny Romeo MD) (1) Acute Decompensated CHF, Suspected Diastolic (2) Hyponatremia, Hypervolemic Hypotonic, Suspected secondary to volume overload w/ acute presentation #1, concurrent use outpatient prior w/ HCTZ (3) Recent Herpes Zoster Infection, Shingles, RUE w/ Post-herpetic Neuralgia (4) Mild Bilirubin, AST/ALT Elevation, Suspected secondary primarily to recent prolonged acyclovir usage (5) Urinary Retention, Acute on Chronic (6) CKD stage III (Noted III per Nephrology), Cr baseline 1.7-1.8 (7) PAF (8) Hypertension (9) History of CLL following w/ Dr. Rivera (10) Obesity You will use the following diet at home:: Cardiac Your food should be the consistency of: Regular Your liquids should be the consistency of: Regular/Thin Discharge Activity: - - Fall precautions, encourage frequent position changes, encourage regular out of bed walks in the home upon discharge and all meals at the table. Weight Bearing Status: Weight bearing as tolerated Keep extremity elevated above heart level: Right Arm Call your doctor if your incision/area has: Continuous Slow Oozing, Sudden Increased Bleeding, Increased Pain/ Swelling, Increased Redness, Foul Smelling Discharge, Swelling at the incision site Call your doctor if you observe: Fever of 101 or Higher, Coldness, Increased Pain, Numbness or Tingling, Change in Color, Inability to urinate, Inability to have a bowel movement, Shortness of breath, Dizziness, Fainting spells, Swelling in the ankles - With weight gain also > 5 Lbs., Chest pain, Uncontrolled pain Instructions: What Is Heart Failure?, Taking Medication to Control Heart Failur e, Heart Failure: Warning Signs of a Flare-Up, Heart Failure: Tracking Your Weight, Heart Failure: Being Active, Taking Medications for Your Heart, Discharge Instructions for Heart Failure, Shingles (Herpes Zoster), ED Retention Urinary Female Additional Instructions: (1) Please continue bilateral lower extremity elevation and snug overlapping ARSEN wraps from toes to knees to assist with lower extremity swelling. (2) Please continue to strive to elevate your right upper extremity above your heart when in bed and seated. (3) Please allow your right upper extremity to be open to air with strict avoidance of picking. (4) You may continue to use the apple cider vinegar to the non-scabbed, lesion regions for acute pain resolution given its effectiveness. (5) Please have your INR rechecked per Dr. King per your usual regimen and facility this upcoming next week if unable to successfully transition to Xarelto versus Eliquis anticoagulation secondary to cost (currently being researched). If the Xarelto or Eliquis is affordable then we request you discontinue the coumadin therapy and we would transition you to the next regimen. Your recent 01/21/19 INR 2.1 th erefore we would plan to transition you to next dose 01/21/19 PM when you would normally take your coumadin. (6) Please continue your Gabapentin regimen for the pain associated with your recent shingles infections until we are able to assess ability to transition to Lyrica (currently being researched). If the Lyrica is affordable we request that you discontinue the gabapentin and transition only to the Lyrica. (7) Please continue on all the new and altered cardiac medications per Dr. King direction. Please perform daily weight checks and if increase >5 lb above your discharge weight please notify his office directly. (8) Please have repeat CBC and CMP in 1 weeks per your primary care physician direction (Complete blood count and comprehensive metabolic panel). Allergies/Adverse Reactions: Allergies erythromycin base [Erythromycin Base] Adverse Reaction (Intermediate, Verified 01/04/19 09:44) Unknown Penicillins Adverse Reaction (Intermediate, Verified 01/04/19 09:44) Rash Medications to take at Discharge B-Complex with Vitamin C 1 ea PO DAILY 07/18/14 Multivitamins,Therapeutic [Multivitamin] 1 tab PO DAILY 07/18/14 Ubidecarenone [Co Q-10] 50 mg PO DAILY 07/18/14 Allopurinol [Zyloprim] 100 mg PO DAILYCM 01/20/17 magnesium citrate 100 mg tablet 1,000 mg PO DAILY tab 07/23/18 warfarin 4 mg tablet 8 mg PO DAILY #60 tab 09/30/18 Gabapentin [Neurontin] 300 mg PO TID 01/17/19 Apixaban [Eliquis] 5 mg PO BID #60 tablet 01/21/19 Atenolol [Tenormin (beta josh)] 25 mg PO DAILY tablet 01/21/19 Clonidine HCl [Catapres] 0.1 mg PO DAILY #30 tablet 01/21/19 Furosemide [Lasix] 40 mg PO BID@1000,1800 #60 tablet 01/21/19 Losartan Potassium [Cozaar] 50 mg PO DAILY #30 tablet 01/21/19 Potassium Chloride [K-Dur] 40 meq PO DAILYCM #30 tablet 01/21/19 Pregabalin [Lyrica] 50 mg PO TID #90 capsule 01/21/19 Rivaroxaban [Xarelto] 15 mg PO DAILY #30 tablet 01/21/19 Tamsulosin HCl [Flomax] 0.4 mg PO DAILY@1730 #30 capsule 01/21/19 The following prescriptions were given: Clonidine HCl [Catapres] 0.1 mg PO DAILY #30 tablet Furosemide [Lasix] 40 mg PO BID@1000,1800 #60 tablet Losartan Potassium [Cozaar] 50 mg PO DAILY #30 tablet Potassium Chloride [K-Dur] 40 meq PO DAILYCM #30 tablet Rivaroxaban [Xarelto] 15 mg PO DAILY #30 tablet Tamsulosin HCl [Flomax] 0.4 mg PO DAILY@1730 #30 capsule Apixaban [Eliquis] 5 mg PO BID #60 tablet Pregabalin [Lyrica] 50 mg PO TID #90 capsule Primary Care Physician: Israel Bucio DO [Primary Care Provider] - Please follow up with your Primary Care Physician in: Follow-up within 3-5 days to review admission. Test Results: Test results from this visit will be discussed in further detail at your follow- up appointment, if applicable. Please Follow Up With: Syeda Rey MD When: Manufacturing Production Manager office will contact you to arrange visit. Please Follow Up With: Lloyd King MD When: Follow-up 2-4 weeks for planned cardioversion. Call earlier if concerns. Please Follow Up With: Johnny Rivera MD When: Please continue to follow w/ Oncology as previously arranged. Please Follow Up With: Charlie Vasquez MD When: Please follow-up with Urology in 1-2 weeks for chronic retention issues. Proposed Discharge Date: 01/21/19
--- NOTE | 2019-01-21 11:58 | PCM.DC.SUM ---
Discharge Date and Diagnosis Date of Admission: 01/18/19 Date of Discharge: 01/21/19 - Primary Discharge Diagnosis Active and Suspected Problems (Last Reviewed 01/18/19 @ 04:24 by Johnny Romeo MD) (1) Acute Decompensated CHF, Suspected Diastolic (2) Hyponatremia, Hypervolemic Hypotonic, Suspected secondary to volume overload w/ acute presentation #1, concurrent use outpatient prior w/ HCTZ (3) Recent Herpes Zoster Infection, Shingles, RUE w/ Post-herpetic Neuralgia (4) Mild Bilirubin, AST/ALT Elevation, Suspected secondary primarily to recent prolonged acyclovir usage (5) Urinary Retention, Acute on Chronic (6) CKD stage III (Noted III per Nephrology), Cr baseline 1.7-1.8 (7) PAF (8) Hypertension (9) History of CLL following w/ Dr. Rivera (10) Obesity - Secondary Discharge Diagnosis Chronic Problems (Last Reviewed 01/18/19 @ 04:24 by Johnny Romeo MD) Chronic renal insufficiency (Chronic) Chronic atrial fibrillation (Chronic) Hypertension (Chronic) Atrial fibrillation (Chronic) CLL (chronic lymphocytic leukemia) (Chronic) Hospital Course and Treatment Consultations 01/19/19 10:18 Consult: Onc/Wound/business systems consultant Routine Comment: Nephrology Dr. Rey Cardiology Dr. King Operations: None Procedures: 2-D Echocardiogram, EKG Summary of Care Provided: The patient is a 73 y/o F w/ PMHx: PAF, HTN, HLD, CLL, CKD stage IV, Chronic Diastolic CHF who presented to the [facility] ED on 01/18/19 w/ history of aggressively worsening lower extremity edema, orthopnea, approximate 33 pound weight gain over the last 2 weeks with notable oral water intake which she notes is secondary to recent oral acyclovir therapy for recent shingles outbreak. Chest x-ray with minimal congestion, notable bilateral lower extremity severe edema, admitted to PCU, maintained on cardiac telemetry, cardiac enzymes unremarkable, continued on IV Lasix diuresis initially with eventual transition to oral Lasix regimen with SNUG Dave wraps and lower extremity elevations with initial admission weight 220 pounds, decreased to 197 upon discharge, continued additional medical therapy w/ coumadin w/ INR trending with unsuccessful attempts to be able to transition to normal oral anticoagulant therapy secondary to cost prohibition. Patient cardiac medications adjusted per cardiology including discharge on reduced Klonopin dose, Lasix 40 mg p.o. twice daily, losartan alteration to 50 mg p.o. daily. TSH normal. Mag normal. ECHO 01/18/19 with normal LV size, normal LV systolic function, EF 60%, unable to assess diastolic dysfunction secondary to arrhythmia, mild concentric LVH, mild TVI. During admission notable Hyponatremia, felt secondary to Hypervolemic Hypotonic presentation secondary to volume overload w/ acute presentation as well as concurrent use outpatient prior w/ HCTZ. Patient treated as noted with IV lasix and cardiac regimen altered for acute CHF exacerbation with improvement of her Na, 01/21/19 Na 133. Patient upon admission with history of recent RUE B zoster infection treated with acyclovir regimen which was eventually confirmed to have been treated for a significant length of time and discontinued especially with noted mild AST, ALT and bilirubin elevations which improved with unremarkable hepatitis panel and liver ultrasound demonstrating no acute findings felt likely secondary to prolonged usage of the antiviral medication. Wound care consulted. Recommended patient not to itch and scratch at the healed lesions on her right upper extremity. Encouraged elevation of the right upper extremity above her heart when seated and in bed. Instructed patient on safe usage of apple cider vinegar to her arm for acute pain which her and her family insisted on using and helped symptomatically with these episodes. Attempted to transition patient from gabapentin to Lyrica which she noted improved her herpetic neuralgia discomfort however this was too costly and upon discharge she was transition back to gabapentin. During admission patient did have urinary retention which is not an uncommon thing for her but with addition of low-dose Flomax we were able to discontinue the Nogueira catheter and PVRs were obtained and appropriate. Patient was referred to urology upon discharge. During admission secondary to patient underlying history of chronic kidney disease nephrology was consulted and followed and patient will follow up with them outpatient. Additionally patient followed by cardiology as noted with plan follow-up in 2-4 weeks for attempted outpatient cardioversion however given patient notable atrial size likely will not be successful. Encourage patient to continue Coumadin with INR repeat in 1 week per her regular draw given that Xarelto and Eliquis options were too costly. PT, OT, case management were consulted during admission and home therapies were requested. Family did several times wish to have family members as the caregivers and be reimbursed by insurance and case management did attempt to assist in this matter however they were unable to have anything set up upon discharge and recommended family continue to follow for these request. DAY OF DISCHARGE PROGRESS NOTE: Subjective: Patient without acute event overnight per self and nursing report. Patient with intermittent right upper extremity neuropathic pain however this is improved with the current Lyrica regimen however this will not be able to be taken continued outpatient secondary to cost and patient will transition back to gabapentin which has worked some as well as PRN application of apple cider vinegar. Patient denies fever, chills, nausea, emesis, abdominal pain, chest pain or dyspnea. Patient continues to note resolution of BL LE DAVE wraps. Patient agreeable to discharge to home with home health. Patient will be discharged with follow-up with primary care physician within 3-5 days in addition to follow-up with Oncology, Nephrology, Cardiology and referral to Urology. Objective: T 98.3, heart rate 62, BP 126/53, respiratory rate 16, 96% on room air. Physical Examination: General: awake, alert, oriented x >3, seated upright in bed in no apparent distress, ill-appearing. Skin: normal color, turgor, no icterus, cyanosis, right upper extremity shingles status post initiation Zovirax, lesions remain crusted, skin better appearing than day prior, open to air, witnessed application of vinegar and patient and family members were very careful to apply on non-lesion regions. HEENT: AT/NC, EOMI, PERRLA, MMM. Lungs: Improved, mildly diminished breath sounds bilateral bases, moderate effort, no rales, rhonchi or wheezing noted. Heart: Irregular, rate controlled; no gallop, rub audible. Abdomen: soft, obese, NTTP, ND, normal BS. Extremities: no cyanosis, clubbing, resolution of bilateral lower extremity edema. Neurological: patient awake, alert, oriented as noted; cognitive function improved since initial presentation, near baseline intact suspected; pupils equally reactive to light and accomodation; cranial nerves II-XII grossly normal, moving all 4 extremities however RUE chronic weakness, strength moderately to severely globally decreased secondary to acute presentation, see skin. Psychiatric: affect appears improved, normal, no acute evidence of depressive or anxiety feelings. Assessment and Plan: Please see hospital summary above. - Physical Exam Vital Signs Temp Pulse Resp BP Pulse Ox 98.3 F 63 16 126/53 H 96 03/28/19 09:20 01/21/19 11:39 01/21/19 09:20 01/21/19 09:20 01/21/19 09:20 Oxygen Delivery Method Room Air Weight: 197 lb 1.492 oz Body Mass Index (BMI) 33.3 Intake and Output for Last 24 Hours 01/19/19 01/20/19 01/21/19 23:59 23:59 23:59 Intake Total 1150 / 1150 660 / 660 120 / 120 Output Total 4725 / 4725 2750 / 2750 600 / 600 Balance -3575 / -3575 -2090 / -2090 -480 / -480 Laboratory Tests Past 24 Hrs 01/20/19 01/21/19 01/21/19 05:16 05:30 05:30 WBC 5.6 RBC 3.14 L Hgb 10.2 L Hct 32.2 L MCV 102.5 H MCH 32.5 H MCHC 31.7 L RDW 16.4 H RDW Differential 58.9 H Plt Count 154 MPV 8.6 Immature Gran % (Auto) 0.400 Neut % (Auto) 32.4 L Lymph % (Auto) 52.[address] % (Auto) 9.8 Eos % (Auto) 4.1 Baso % (Auto) 0.5 Absolute Neuts (auto) 1.8 L Absolute Lymphs (auto) 2.98 Total Counted Not Reportable PT 23.7 H INR 2.1 Sodium Potassium Chloride Carbon Dioxide Anion Gap BUN Creatinine Estim Creat Clear Calc Est GFR (MDRD) Af Amer Est GFR (MDRD) Non-Af BUN/Creatinine Ratio Glucose Calcium Iron 49 L Total Bilirubin AST ALT Alkaline Phosphatase Total Protein Albumin Globulin Albumin/Globulin Ratio 01/21/19 05:30 WBC RBC Hgb Hct MCV MCH MCHC RDW RDW Differential Plt Count MPV Immature Gran % (Auto) Neut % (Auto) Lymph % (Auto) [place] % (Auto) Eos % (Auto) Baso % (Auto) Absolute Neuts (auto) Absolute Lymphs (auto) Total Counted PT INR Sodium 133 L Potassium 4.7 Chloride 93 L Carbon Dioxide 33.0 H Anion Gap 7 BUN 42 H Creatinine 1.81 H Estim Creat Clear Calc 25.14 Est GFR (MDRD) Af Amer 35 L Est GFR (MDRD) Non-Af 29 L BUN/Creatinine Ratio 23.2 H Glucose 116 H Calcium 9.4 Iron Total Bilirubin 0.60 AST 22 ALT 43 Alkaline Phosphatase 89 Total Protein 6.1 L Albumin 2.9 L Globulin 3.2 Albumin/Globulin Ratio 0.9 Home Medications: Medications to take at Discharge B-Complex with Vitamin C 1 ea PO DAILY 07/18/14 Multivitamins,Therapeutic [Multivitamin] 1 tab PO DAILY 07/18/14 Ubidecarenone [Co Q-10] 50 mg PO DAILY 07/18/14 Allopurinol [Zyloprim] 100 mg PO DAILYCM 01/20/17 magnesium citrate 100 mg tablet 1,000 mg PO DAILY tab 07/23/18 warfarin 4 mg tablet 8 mg PO DAILY #60 tab 09/30/18 Gabapentin [Neurontin] 300 mg PO TID 01/17/19 Atenolol [Tenormin (beta josh)] 25 mg PO DAILY tablet 01/21/19 Clonidine HCl [Catapres] 0.1 mg PO DAILY #30 tablet 01/21/19 Furosemide [Lasix] 40 mg PO BID@1000,1800 #60 tablet 01/21/19 Losartan Potassium [Cozaar] 50 mg PO DAILY #30 tablet 01/21/19 Potassium Chloride [K-Dur] 40 meq PO DAILYCM #30 tablet 01/21/19 Tamsulosin HCl [Flomax] 0.4 mg PO DAILY@1730 #30 capsule 01/21/19 Following Prescrptions Were Given to Patient: Clonidine HCl [Catapres] 0.1 mg PO DAILY #30 tablet Furosemide [Lasix] 40 mg PO BID@1000,1800 #60 tablet Losartan Potassium [Cozaar] 50 mg PO DAILY #30 tablet Potassium Chloride [K-Dur] 40 meq PO DAILYCM #30 tablet Tamsulosin HCl [Flomax] 0.4 mg PO DAILY@1730 #30 capsule Primary Care Physician: Israel Bucio DO [Primary Care Provider] - Patient Instructions: Taking Medication to Control Heart Failure, What Is Heart Failure?, Heart Failure: Warning Signs of a Flare-Up, Heart Failure: Tracking Your Weight, Heart Failure: Being Active, Taking Medications for Your Heart, Discharge Instructions for Heart Failure, Shingles (Herpes Zoster), ED Retention Urinary Female Disposition: Home with Home Health Minutes spent on discharge:: 35 Patient Condition:: Fair Medical Necessity - Tobacco Use Smoking Status: Never smoker Meaningful Use Info Meaningful Use Diagnoses (Choose all that apply): CHF - CHF DAVE/ARB ordered at discharge?: Yes Documented LVEF (%): 60 Code Visit Inpatient E&M: 08922 Disch Hosp
--- NOTE | 2019-01-22 15:26 | CASEMGMT ---
VASQUEZ REY Discharge F/U Phone Call LACE: 12 Strata: 4 Discharge date: 01/21/19 Call date: 01/22/19 Call time: [id number] Duration: Admission dx: Hyponatremia, fluid overload Pt states doing 'pretty good' since discharge. Pt states no questions regarding discharge instructions/medications at this time. Pt states plans to keep f/u appt's. Pt states no suggestions for WCH at this time. Pt voices no further questions/concerns/needs at this time. Pt does have OP therapy appt scheduled for 01/27/19. SStaten VASQUEZ REY
== END 2019-01-21 14:17 | disposition home or self-care (01) | DRG 291 ==
LOC: ED 01-18 01:18 → MS3 01-18 01:32 → PCU 01-18 06:43
PROVIDERS: Physician Assistant; Admitting Provider Hospitalist; Emergency Provider Emergency Medicine; Family Provider Family Medicine; PCP Family Medicine; Referring Provider Hospitalist; Visit Provider Family Medicine
DX: I13.0 Hypertensive heart and chronic kidney disease with heart failure and stage 1 through stage 4 chronic kidney disease, or unspecified chronic kidney disease (principal); I50.33 Acute on chronic diastolic (congestive) heart failure; C91.10 Chronic lymphocytic leukemia of B-cell type not having achieved remission; B02.29 Other postherpetic nervous system involvement; E87.1 Hypo-osmolality and hyponatremia; Z79.01 Long term (current) use of anticoagulants; N18.3 Chronic kidney disease, stage 3 (moderate); E66.9 Obesity, unspecified; Z68.33 Body mass index [BMI] 33.0-33.9, adult; I48.0 Paroxysmal atrial fibrillation; R33.9 Retention of urine, unspecified
CPT/HCPCS: 36415; 71046; 76705; 80048; 80053; 81001; 82570; 82607; 82746; 83540; 83550; 83735; 83880; 83935; 84100; 84300; 84443; 84484; 85025; 85610; 86704; 86705; 86706; 86708; 86709; 86803; 87340; 93005; 93306; 97162; 97166; 97530; 97802; 99285; Q9957; A4216; J1940

== ENCOUNTER → 2019-02-01 | Outpatient (CLI) | payer MEDICARE, OTHER, SELFPAY ==
[2019-01-18 02:49] VITALS: BMI 33.3
[2019-02-01 13:18] LABS: International Normalized Ratio 2.4; Prothrombin Time (Protime)PT. 26.5 SECONDS (11.7-14.9)
[2019-02-08 11:13] LABS: International Normalized Ratio 3.1; Prothrombin Time (Protime)PT. 31.9 SECONDS (11.7-14.9)
== END | disposition home or self-care (01) ==
LOC: PAVLAB 12:40
PROVIDERS: Family Provider Family Medicine; PCP Family Medicine; Visit Provider Internal Medicine Cardiovascular Disease
DX: I48.91 Unspecified atrial fibrillation (principal); Z79.01 Long term (current) use of anticoagulants
CPT/HCPCS: 36415; 85610

== ENCOUNTER 2019-02-15 10:16 | Outpatient (RCR) | payer MEDICARE, OTHER, SELFPAY ==
[2019-01-18 02:49] VITALS: BMI 33.3
[2019-01-25 10:39] LABS: International Normalized Ratio 1.5; Prothrombin Time (Protime)PT. 18.4 SECONDS (11.7-14.9)
[2019-01-25 11:00] LABS: Anion Gap 5 (5-15); BUN 39 mg/dL (7-18); BUN/Creat Ratio 22.7 RATIO (10-20); Calcium,Total 8.5 mg/dL (8.5-10.1); Chloride 101 mmol/L (98-107); Creatinine, Serum 1.72 mg/dL (0.55-1.02); EST Glomerular Filtration Rate 31 mL/min (>60); Est Glom Filt Rate - Afr Amer 37 mL/min (>60); Glucose 125 mg/dL (74-106); Sodium Level 136 mmol/L (136-145)
[2019-02-15 10:48] LABS: Prothrombin Time (Protime)PT. 35.6 SECONDS (11.7-14.9)
[2019-02-15 10:52] LABS: International Normalized Ratio 3.5
== END 2019-02-23 23:59 ==
LOC: PAVLAB 10:16
PROVIDERS: Nurse Practitioner Family; Family Provider Family Medicine; PCP Family Medicine; Visit Provider Internal Medicine Cardiovascular Disease
DX: I48.91 Unspecified atrial fibrillation (principal); Z79.01 Long term (current) use of anticoagulants; E87.6 Hypokalemia
CPT/HCPCS: 36415; 80048; 85610

== ENCOUNTER 2019-03-02 10:02 | Day surgery (SDC) | payer MEDICARE, OTHER, SELFPAY ==
[2019-02-04 15:03] VITALS: BMI 32.3
[2019-02-24 01:42] VITALS: BMI 33.3
[2019-03-01 07:21] VITALS: BMI 32.3
--- NOTE | 2019-03-02 08:34 | HP.PCM_ITS ---
Problem List (1) Atrial fibrillation Status: Chronic Qualifiers: Atrial fibrillation type: persistent History and Physical Date of Admission: 03/02/19 HPI HPI Details: ENRICO MEEKS, is a 73 F who presents to the office today for a hospital follow-up. She has a history of atrial fibrillation, hypertension, and chronic lymphocytic leukemia. She was recently hospitalized for pneumonia, acute diastolic heart failure and shingles. Prior to her hospital stay we were trying to proceed with a synchronized cardioversion. Pt is currently undergoing OT/PT for her shingles. She has limited use on her right arm. She has significant numbness from the shingles. She is recovering from her hospital stay. She sts that her breathing is okay. She does not have any chest pain. She is trying to walk daily. Her weight as been stable. She does occasionally have palpitations. She does occasionally have edema. She does not have any lightheadedness/dizziness. There is a question about her current dose of lasix, she sts she is taking 3 pills all at once. 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 Accompanied by: Daughter Is patient in pain?: No Allergies erythromycin base [Erythromycin Base] Adverse Reaction (Intermediate, Verified 02/04/19 15:07) Unknown Penicillins Adverse Reaction (Intermediate, Verified 02/04/19 15:07) Rash Medications B-Complex with Vitamin C 1 ea PO DAILY 07/18/14 [History Confirmed 02/04/19] Multivitamins,Therapeutic [Multivitamin] 1 tab PO DAILY 07/18/14 [History Confirmed 02/04/19] Ubidecarenone [Co Q-10] 50 mg PO DAILY 07/18/14 [History Confirmed 02/04/19] Allopurinol [Zyloprim] 100 mg PO DAILYCM 01/20/17 [History Confirmed 02/04/19] magnesium citrate 100 mg tablet 1,000 mg PO DAILY tab 07/23/18 [History Confirmed 02/04/19] warfarin 4 mg tablet 8 mg PO DAILY #60 tab 09/30/18 [Rx Confirmed 02/04/19] Potassium Chloride [K-Dur] 40 meq PO DAILYCM #30 tab 01/21/19 [Rx Confirmed 02/04/19] Tamsulosin HCl [Flomax] 0.4 mg PO DAILY@1730 #30 cap 01/21/19 [Rx Confirmed 02/04/19] atenolol 25 mg tablet 25 mg PO DAILY tab 02/04/19 [History] capsicum (cayenne) 450 mg capsule mg PO cap 02/04/19 [History Confirmed 02/04/19] clonidine HCl 0.1 mg tablet 0.1 mg PO DAILY #30 tab 02/04/19 [Rx Confirmed 02/04/19] furosemide 40 mg tablet 40 mg PO BID #60 tab 02/04/19 [Rx Confirmed 02/04/19] gabapentin 300 mg capsule 300 mg PO TID 02/04/19 [History Confirmed 02/04/19] losartan 50 mg tablet 50 mg PO DAILY #30 tab 02/04/19 [Rx Confirmed 02/04/19] Ejection fraction %: 60 to 64 PFSH Medical History Hypertension (Chronic) Atrial fibrillation (Chronic) CLL (chronic lymphocytic leukemia) (Chronic) Kidney disease (Acute) Proteinuria (Acute) Renal insufficiency (Acute) Chronic dizziness (Chronic) Nausea (Resolved) Surgical History History of cholecystectomy (Resolved) History of hysterectomy (Resolved) History of parathyroid surgery (Resolved) Family History Mother Hypertension Heart disease Father Diabetes Myocardial infarction Social History Smoking Status: Never smoker alcohol intake: never substance use type: does not use caffeine: No ROS Const Const: Negative for fatigue, weakness, fever(s) or headache(s) Eyes Eyes: Negative for blind spots, loss of peripheral vision or transient loss of vision ENT ENT: Negative for headache(s), dizziness, tinnitus or Nosebleed/epistaxis Cardio Chest Pain: No Palpitations: No Edema: None Muscle aches with walking: None Resp Respiratory: Positive for SOB with activity; negative for SOB at rest, SOB orthopnea\SOB lying down or Cough GI GI: Negative nausea, vomiting, heartburn or vomiting blood/hematemesis : Negative for hematuria Musc Musc: Positive for muscle aches/ myalgia and muscle weakness Neuro Neuro: Negative for dizziness, lightheadedness, near syncope, syncope, orthostatic symptoms, headache(s) or weakness Romaine Hematologic/Lymphatic: Negative for easy bleeding Endo Endo: Negative for fatigue Cardiology Exam Const Appearance: cooperative, healthy appearing, comfortable, no acute distress, well developed and well groomed Nutritional Appearance: well nourished and obese Orientation: alert, awake and oriented x3 Limitations: physical limitations (right arm weak) Head Head: normal to inspection, normocephalic and atraumatic Ears: hearing grossly normal bilaterally Nose: external nose normal Face and Sinus: face symmetric Mouth: oral mucosae normal Teeth and gingiva: fair dentition Eyes Eyelids: eyelids normal Conjunctivae: conjunctivae normal Pupils: PERRL EOM: EOM intact bilaterally Neck Neck: normal visual inspection and full ROM Carotids: normal carotid upstroke Chest Chest inspection: normal inspection of the chest, symmetric chest movement and normal respiratory effort Auscultation: Bilateral: Clear to Auscultation Cardio Palpation: normal PMI Rhythm: irregular rhythm Heart sounds: S1 normal and S2 normal; negative rub, gallop or murmur GI GI: obese Neuro General: alert, awake and oriented x3 Skin Skin: Negative no rashes or lesions noted (Right arm) Extremities Pulses: Normal: Right Posterior Tibial Pulse, Left Posterior Tibial Pulse, Right Radial Pulse, Left Radial Pulse Lower Extremity Edema: None: Bilateral Psych Psychological: normal affect Assessment & Plan 1. Persistent atrial fibrillation I48.1 Plan At the present time she remains in atrial fibrillation. She will continue rate control therapy and anticoagulant therapy. When her INR is therapeutic she can be considered for an attempt at synchronized biphasic DC cardioversion. With her recent hospital stay, her INR was subtherapeutic last week. However based upon her echocardiographic findings with respect to her left atrial size it may be challenging to obtain and maintain sinus rhythm. If she went through such a procedure and did not obtain and/or maintain sinus rhythm then she would need to be considered for antiarrhythmic therapy. At the same time she appears without any acute symptoms with respect to her atrial dysrhythmia. Hopefully she will tolerate her anticoagulant well. This will need to be monitored closely with her CLL. Thus it is an option that she could remain in atrial fibrillation with rate control therapy with anticoagulant therapy barring unforeseen events. 2. Essential hypertension I10 Plan Blood pressure is well controlled on current medications, we do not recommend any changes at this time. 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 4. Acute on chronic diastolic congestive heart failure I50.33 Plan Her symptoms have improved since her hospital stay. We will decrease her lasix to twice a day. She will be monitored closely. Patient Instructions decrease your lasix to 40 mg twice a day. Once in the morning and the second a 4-6 hours later. Plan Detail Other Medications Changed: From: furosemide 40 mg PO BID@1000,1800 60 tabs 0RF To: furosemide 40 mg PO BID 60 tabs 11RF Refilled: clonidine HCl 0.1 mg PO DAILY 30 tabs 11RF losartan 50 mg PO DAILY 30 tabs 11RF Additional Comments Thank you for allowing us to participate in patient's plan of care, if you have any questions please do not hesitate to call. This note was generated using a voice recognition system and there may be incorrect words, spelling or punctuation errors that were not noted when reviewing the office note prior to saving. 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 The estimated ejection fraction is 60 %. The left atrium is severely enlarged. The right atrium is moderately enlarged. Mild diffuse mitral valve thickening. The mitral papillary muscle appears thickened and/or calcified. Moderate (2+) eccentric mitral valve insufficiency. Mild to moderate (1-2+) tricuspid valve insufficiency. Mild focal aortic valve calcification. Trivial pulmonic valve insufficiency. Right ventricular systolic pressure estimated to be 36 mmHg. Diastolic function is indeterminate. I have re-examined the patient. There are no clinical changes since date of exam.
[2019-03-02 10:31] LABS: Prothrombin Time Fingerstick 23.4 SEC (11.9-14.4)
--- NOTE | 2019-03-02 13:02 | PCM.OP.PRO ---
Procedure Report Date of Procedure: 03/02/19 CONSCIOUS SEDATION REPORT DATE OF SERVICE: March 02, 2019 BRIEF HISTORY OF PRESENT ILLNESS: The patient is a 73-year-old female who presented to [facility] for an elective outpatient cardioversion due to underlying atrial flutter. The patient is currently anticoagulated on Coumadin with a therapeutic INR. Her last known ejection fraction was approximately 65%. The patient denies any previous anesthetic complications. She has no known history of obstructive sleep apnea. She is a non-smoker. She denies any fevers, chills or night sweats. PHYSICAL EXAMINATION: VITAL SIGNS: Reviewed and were acceptable. GENERAL: The patient is a female, in no apparent distress, speaking in full sentences. HEENT: Normocephalic, atraumatic. Mucous membranes are moist and pink. Good mouth opening noted. Trachea is midline. CHEST: S1, S2 irregularly irregular. No murmurs, rubs or gallops were noted. LUNGS: Clear to auscultation bilaterally without appreciable wheezes, rales or rhonchi. ABDOMEN: Soft, nontender, nondistended. Positive bowel sounds. EXTREMITIES: There is no clubbing, cyanosis or edema. ASA Class: II DESCRIPTION OF PROCEDURE: After confirmation of informed consent, the patient's anesthesia plan was reviewed in detail. Propofol was chosen. Risks and benefits were reviewed and the patient agreed to proceed. At 1236, the patient was given 60 mg of propofol. The patient achieved an appropriate level of sedation and was given a 50 joule synchronized cardioversion by Dr. King at the bedside. This was successful in achieving normal sinus rhythm. The patient was monitored until 1247, at which time she reached her baseline mental status and function. The patient tolerated the procedure well. COMPLICATIONS: None ESTIMATED BLOOD LOSS: None RECOMMENDATIONS: Okay to recover in usual fashion. Code Visit 9xxxx: Other Procedure See Report - [id number]
--- NOTE | 2019-03-02 13:20 | CARDIOVERS_ITS ---
Cardioversion Cardioversion: Procedure: Synchronized Biphasic DC Cardioversion Indications: Atrial fibrillation/flutter Consent: Per the Patient Anesthesia: per Dr. Ernst of pulmonology and critical care medicine with propofol 60 mg IV push total Procedure: Synchronized Biphasic DC Cardioversion: 50 J x1: Result: Sinus bradycardia/ectopic atrial bradycardia/junctional rhythm with occasional PVCs Complications: no apparent complications This note was generated with [employer] software. It may contain incorrect words, spelling, and punctuation that were not noted in checking the note before signing.
== END 2019-03-02 13:50 | disposition home or self-care (01) ==
PROVIDERS: Family Provider Family Medicine; PCP Family Medicine; Referring Provider Internal Medicine Cardiovascular Disease; Visit Provider Internal Medicine Cardiovascular Disease
DX: I48.1 Persistent atrial fibrillation (principal); I11.0 Hypertensive heart disease with heart failure; I50.33 Acute on chronic diastolic (congestive) heart failure; N28.9 Disorder of kidney and ureter, unspecified; C91.10 Chronic lymphocytic leukemia of B-cell type not having achieved remission; Z79.01 Long term (current) use of anticoagulants; Z79.899 Other long term (current) drug therapy
CPT/HCPCS: 36416; 85610; 92960; 93005; J7040

== ENCOUNTER 2019-03-09 11:46 | Outpatient (RCR) | payer MEDICARE, OTHER, SELFPAY ==
[2019-02-24 01:42] VITALS: BMI 33.3
[2019-02-24 12:18] LABS: International Normalized Ratio 2.3; Prothrombin Time (Protime)PT. 24.9 SECONDS (11.7-14.9)
[2019-03-09 12:29] LABS: Prothrombin Time (Protime)PT. 22.5 SECONDS (11.7-14.9)
== END 2019-03-26 23:59 ==
LOC: PAVLAB 11:46
PROVIDERS: Family Provider Family Medicine; PCP Family Medicine; Referring Provider Internal Medicine Cardiovascular Disease; Visit Provider Internal Medicine Cardiovascular Disease
DX: I48.91 Unspecified atrial fibrillation (principal); Z79.01 Long term (current) use of anticoagulants
CPT/HCPCS: 36415; 85610

== ENCOUNTER → 2019-03-29 | Outpatient (CLI) | payer MEDICARE, OTHER, SELFPAY ==
[2019-03-29 10:16] VITALS: BMI 32.1
[2019-03-29 11:02] LABS: Hematocrit 38.9 % (37-47); Hemoglobin 12.4 g/dl (12.0-15.0); Mean Corp Hgb Conc 31.9 g/gl (32-36); Mean Corpuscular Hgb 32.8 pg (27.0-32.0); Mean Corpuscular Volume 102.9 fL (81-99); Mean Platelet Vol. 9.2 fl (6.2-12.0); Platelet Count 107 K/mm3 (150-450); RBC Distribution Width CV 14.1 % (11.6-14.6); RBC Distribution Width SD 52.8 fl (35.1-43.9); Red Blood Count 3.78 M/mm3 (4.2-5.4); White Blood Count 5.8 K/mm3 (4.4-11.0)
[2019-03-29 11:03] LABS: Scan Indicated on CBC? Y/N NO
[2019-03-29 11:21] LABS: Albumin, Serum 3.6 g/dL (3.2-5.0); BUN 37 mg/dL (7-18); BUN/Creat Ratio 21.1 RATIO (10-20); Calcium,Total 9.6 mg/dL (8.5-10.1); Chloride 101 mmol/L (98-107); Creatinine, Serum 1.75 mg/dL (0.55-1.02); EST Glomerular Filtration Rate 30 mL/min (>60); Est Glom Filt Rate - Afr Amer 36 mL/min (>60); Glucose 94 mg/dL (74-106); Potassium 3.5 mmol/L (3.5-5.1); Sodium Level 143 mmol/L (136-145)
[2019-03-29 11:41] LABS: Vitamin D,25 Hydroxy 40.8 ng/mL (29.95-100.01)
[2019-03-29 11:43] LABS: Protein, Urine (Random) 15.5 mg/dL (<11.9); Protein:Creat Ratio 204 mg/g CRE (0-200)
== END | disposition home or self-care (01) ==
LOC: PAVLAB 10:17
PROVIDERS: Family Provider Family Medicine; PCP Family Medicine; Referring Provider Physician Assistant Medical; Visit Provider Physician Assistant Medical
DX: N18.3 Chronic kidney disease, stage 3 (moderate) (principal); D63.1 Anemia in chronic kidney disease; E55.9 Vitamin D deficiency, unspecified
CPT/HCPCS: 36415; 80069; 82306; 82570; 83970; 84156; 85027

== ENCOUNTER 2019-04-19 08:58 | Outpatient (RCR) | payer MEDICARE, OTHER, SELFPAY ==
[2019-03-29 10:16] VITALS: BMI 32.1
[2019-04-19 09:46] LABS: International Normalized Ratio 1.5; Prothrombin Time (Protime)PT. 18.1 SECONDS (11.7-14.9)
== END 2019-04-25 23:59 ==
LOC: PAVLAB 08:58
PROVIDERS: Family Provider Family Medicine; PCP Family Medicine; Referring Provider Internal Medicine Cardiovascular Disease; Visit Provider Internal Medicine Cardiovascular Disease
DX: I48.91 Unspecified atrial fibrillation (principal); Z79.01 Long term (current) use of anticoagulants
CPT/HCPCS: 36415; 85610

== ENCOUNTER 2019-04-27 07:00 | Outpatient (RCR) | payer MEDICARE, OTHER, SELFPAY ==
[2019-01-18 02:49] VITALS: BMI 33.3
--- NOTE | 2019-01-27 11:09 | HP.PTEVAL_ITS ---
Patient's Visit Information ENRICO MEEKS is a 73 year old F referred to Physical Therapy by Fariba Munoz with a diagnosis of DEBILITY,CHF,CLL,CHRONIC A-FIB. Date of Evaluation: 01/27/19 Physical Therapist: Timothy Garvey PT, Cert MDT, OCS - Visit Plan Frequency: 2x /Week Duration: 4 Weeks Plan: PATIENT DEVELOPED SHINGLES RIGHT UE HAS PAIN AND WEAKNESS WILL BE SEEN BY OT. PROGRESSIVE BALANCE PROGRAM,LE STRENGTHENING,ENDURANCE PROGRAM - Subjective Findings: This 73 y/o female presents to physical therapy with deblity and recent hospital stay. Patient was admitted to [facility] [place] on 01/18/19 for edema of bilateral lower legs and weight gait, Patient was found to have CHF, A-FIB, CRI,CLL( CHTONIC LYPHOCYTIC LEUKEMIA),and found to have shigle past 4 weeks. Patient was d/c to 01/21/19. Patient had some weakness and balance issues. Patient has pain issues right arm pain from shingles. Patient has weakness in right arm which patien is seeing OT. Patient ADLS' with right UE and has some mild deficits with with balance gait. Patient lives alone apartment 1story no steps. Denies parathesia right arm. Patient condition affects ADL'S and function. SOCIAL: single lives alone. VOCATION: retired - Pain Right Shoulder Pain Intensity (Out of 10): 3 Pain Intensity Range: 10 Comment: worse 7/10 - Objective POSTURE: mild foward pposture. GAIT : mild foward posture reciprocal pattern. NEURO: intact. BALANCE: good-. STAIRS: one step at a time with rail. EDEMA: pitted bilateral ankle 1+. MMT: quads/hams 4-/5,hip 4-/5,ankle 4/5 - Balance Scores Functional Gait Assessment Score: 15 % Disability: 50.0000 CATSIB Score (Max score 120 seconds): 80 - Goals Goal 1:: Independant with HEP Goal Time Frame: 2-4 Weeks Goal 2:: Improve CATSIB BY 5-10 points to improve balance Goal Time Frame: 2-4 Weeks Goal 3:: Patient to improve gait assessment score by 10 points to improve function Goal Time Frame: 2-4 Weeks Goal 4:: Patient improve LFES score by 5-10 points to improve QOL. Goal Time Frame: 2-4 Weeks Goal 5:: Patient increase strength TO 4/5 TO IMPROVE FUNCTION with ADL'S Goal Time Frame: 2-4 Weeks - Rehabilitation Potential Physical Therapy Diagnosis: This patient has multiple comorbities along with recent hospital stay with CHF and shingles affected RUE with deficits with balance and weakness impairs ADL'S Rehabilitation Potential: Good - Anticipated Interventions Patient/Client Instruction: Educate patient on: Condition, Plan of Care For the Purpose of:: To decrease pain, To improve muscle performance and motor function, To improve ability to perform ADL's, To increase tolerance to ac tivity/condition/position, To improve performance and independence with ADL's, To improve ability of physical actions for home/community/work/leisure, To increase flexibility/ROM, To improve endurance, To improve balance, To improve safety with gait, To improve ability to perform tasks related to life management Therapeutic Exercise to Include: Strength training, Endurance training, Balance training, Gait and locomotor training For the Purpose of:: To improve muscle performance and motor function, To improve ability to perform ADL's, To increase tolerance to activity/condition/position, To improve performance and independence with ADL's, To improve ability of physical actions for home/community/work/leisure, To improve gait and locomotor functions, To improve endurance Thank you for the opportunity to evaluate your patient. For Medicare and Medicare HMO plans, please review the plan of care and approve it. It will need to be FAXED BACK to us at [phone] for Medicare purposes. For Medicare only, by signing this I certify the plan of care. Please let me know if there are questions or concerns regarding this plan of care. Physician Signature: Date:
--- NOTE | 2019-01-27 19:57 | HP.OTEVAL_ITS ---
Patient's Visit Information JULISSA MEEKS is a 73 year old F, referred to Occupational Therapy by Fariba Munoz, with a diagnosis of CHF, CLL, Chronic A fib, Debility. Date of Evaluation: 01/27/19 Occupational Therapist: Angelika Vargas - Subjective Subjective: Arrived with daughter, Jasmine, who noted that she has shingles about 5 weeks ago. Julissa noted that after shingles episode she became weak and unable to move her right UE. She noted that she has pain throughout arm with numbness in it especially around the thumb and index finger. She noted that they have gotten better but notes still very painful. - ADLs Dressing: Bra, Overhead shirt, Button shirt, Coat, Socks, Shoes Fasteners: Tie shoes, Buttons, Zippers, Snaps Eating: Bring food to mouth, Use silverware, Cut food Bathing: Handle washcloth & soap, Wash hair Toileting: Manage clothing Grooming: military exchange wireless manager Kitchen: Chop with knife, Peel fruits & vegetables, Open jars, Open bottle caps, Ziplock bags, Lift gallon of milk, Pour from pitcher, Lift saucepan, Take dish out of oven, Load/unload warp yarn sorter Household: Vacuum, Sweep/mop, Dust, Laundry Comments: Worked at [employer] 3-4x days a week. She noted that she was able to complete heavy work of flour bags, cream cheese, and other ingredients. SHe was able to lift these boxes that were approximately between 20-30 lbs and on occassionally 40-50 lbs. SH enoted that the job also required her to stand for 8-10 hours daily with short breaks throughout. - Pain Right arm 4 - Objective Objective/Observation: Minimal active movement of R UE from shoulder down. She i s able to make composite fist of R dominant hand. Decreased strength. Skin red and patches from where shingles previously were located. Decreased sensation at fingerpads with use of monofilament test. - ROM Shoulder: flexion R 0-25, L 0-133; extension R 0-30, L 0-51;abduction R 0-17, L 0-173 Elbow: R 12-34, L 0-133 Forearm: R unable to to complete on R side without compensations, L WFL Wrist: flexion R 0-30, L WFL; extension R 0-17, L WFL MP: WFL IP: WFL Radial Abduction: WFL MP: WFL PIP: WFL DIP: WFL ROM Comments: Increased compensations noted with R UE observed through lateral leaning. Significantly impaired shoulder ROM for flexion, abduction, and IR and ER. She additionally is unable to actively move elbow to flexion, extension , or forearm to supination as well as completing subsequent wrist movements. - Strength Shoulder: flexion , ext, and ER: R 2-/5 L 4-/5 Elbow: R 2+/5 L 4-/5 Forearm: R 2-/5 L 4-/5 Wrist: flexion and ext R 2-/5 L 4-/5 [employer]: R 39 , L 55 Lateral Pinch: R 10, L 14 Tripod Pinch: R 12, L 12 Tip-to-Tip Pinch: R 10, L 13 Strength Comments: Completed empty can and intact on L UE only. Increased weakness noted throughout R UE with minimal muscle palpation. For us eof dyanometer completed at table top due to inability to complete hand without assistance of L UE or OT. - Edema Proximal Phalanx: 2nd R 8.2, L 7; 3rd 7.9, L 7; 4th R 7.4, L 6.7, 5th R 6.5, L 6.1 cm - Sensation Thumb: R 4.93, L WFL Index: R 4.08, L WFL Middle: R 4.08, L WFL Ring: R 3.22, L WFL Little: R 3.84, L WFL Stereognosis: Abnormal - Right Kinesthesia: Abnormal - Right Proprioception: Abnormal - Right Sensation Comments: Completed monofilament R hand finger pad only. Further sesnory testing to occur upon first session. - Nine Hole Peg Right: Unable to complete at this time. - In-Hand Manipulation Finger to Palm Translation: Severe - Right, Normal - Left Palm to Finger Translation: Severe - Right, Normal - Left Shift: Moderate - Right, Normal - Left Rotation: Severe - Right, Normal - Left - Upper Limb Functional Index ULFI Score: 20.5 - Quick DASH-Disab of Arm,Shoulder& Hand Quick DASH Score: 86.6650 - Rehabilitation General Assessment: Julissa arrived with daughter, Jasmine, on this date of 01/27/19 for completion of OT evaluation. She reports having had shingles virus about 5 weeks ago in which she has been unable to move R UE since illness. She noted very limited ROM for shoulder flexion, abduction, and IR and ER as well as minimal for labored movement for elbow to hand of RUE. As a result, strength of her R UE is also severely impacted. Julissa was previously a very active 73 y/o women and worked at least 3-4 days if not 5 days per week at [employer] in [place], [place]. She noted she completed lifting, baking, and all job required duties. Since recent illness she has been unable to actively move R UE for functional tasks. She is limited in ADls and IADLs and often compensates with use of L UE. Julissa would benefit from skilled OT services to promote increased ROM, strength, edema management, a/e training, and general functional activity tolerated to return to PLFO for all ADl/IADls of RUE. Rehabilitation Potential: Good - Anticipated Interventions Anticipated Interventions: Early Active Motion, A/AAROM/PROM, Strengthening, Edema Control, Scar Care, Desensitization, Modalities, Orthoses, Joint Protection/Energy Conservation, Ergonomic Education, Dynamic Sitting Balance, Fine Motor Coord/[place], Neuro Reeducation, ADL Training, Education re assistive Equipment, Caregiver Training, Home Program - Visit Plan Frequency: 2x /Week Duration: 4 Weeks General Plan: OT to work on edema managment, PRE through strength program, ROM, ADL/IALDs retraining, sensory desensitization techniques, faciliatory techniques to promote increased movements needed of RUE, and general increased ability to use R UE at PLOF. TEXT: Thank you for the opportunity to evaluate your patient. For Medicare and Medicare HMO plans, please review the plan of care and approve it. It will need to be FAXED BACK to us at [phone] for Medicare purposes. Please let me know if there are questions or concerns regarding this plan of care. Physician Signature: Date:
--- NOTE | 2019-01-29 08:34 | HP.OTEVAL_ITS ---
Patient's Visit Information JULISSA MEEKS is a 73 year old F, referred to Occupational Therapy by Fariba Munoz, with a diagnosis of CHF, CLL, Chronic A fib, Debility. Date of Evaluation: 01/27/19 Occupational Therapist: Angelika Vargas - Subjective Subjective: Arrived with daughter, Jasmine, who noted that she has shingles about 5 weeks ago. Julissa noted that after shingles episode she became weak and unable to move her right UE. She noted that she has pain throughout arm with numbness in it especially around the thumb and index finger. She noted that they have gotten better but notes still very painful. Julissa does has significant PMHx of CLL, CHF, chronic a fib, and debility. - ADLs Dressing: Bra, Overhead shirt, Button shirt, Coat, Socks, Shoes Fasteners: Tie shoes, Buttons, Zippers, Snaps Eating: Bring food to mouth, Use silverware, Cut food Bathing: Handle washcloth & soap, Wash hair Toileting: Manage clothing Grooming: customer engagement specialist Kitchen: Chop with knife, Peel fruits & vegetables, Open jars, Open bottle caps, Ziplock bags, Lift gallon of milk, Pour from pitcher, Lift saucepan, Take dish out of oven, Load/unload supervisor print line Household: Vacuum, Sweep/mop, Dust, Laundry Comments: Worked at [employer] 3-4x days a week. She noted that she was able to complete heavy work of flour bags, cream cheese, and other ingredients. She was able to lift these boxes that were approximately between 20-30 lbs and on occasionally 40-50 lbs. She noted that the job also required her to stand for 8- 10 hours daily with short breaks throughout. - Pain Right arm 4 - Objective Objective/Observation: Minimal active movement of R UE from shoulder down. She is able to make composite fist of R dominant hand. Decreased strength. Decreased skin integrity of red and patches from where shingles previously were located. Decreased sensation at fingerpads with use of monofilament test. - ROM Shoulder: flexion R 0-25, L 0-133; extension R 0-30, L 0-51;abduction R 0-17, L 0-173 Elbow: R 12-34, L 0-133 Forearm: R unable to to complete on R side without compensations, L WFL Wrist: flexion R 0-30, L WFL; extension R 0-17, L WFL MP: WFL IP: WFL Radial Abduction: WFL MP: WFL PIP: WFL DIP: WFL ROM Comments: Increased compensations noted with R UE observed through lateral leaning. Significantly impaired shoulder ROM for flexion, abduction, and IR and ER. She additionally is unable to actively move elbow to flexion, extension , or forearm to supination as well as completing subsequent wrist movements. - Strength Shoulder: flexion , ext, and ER: R 2-/5 L 4-/5 Elbow: R 2+/5 L 4-/5 Forearm: R 2-/5 L 4-/5 Wrist: flexion and ext R 2-/5 L 4-/5 Brake Repairer Railroad: R 39 , L 55 Lateral Pinch: R 10, L 14 Tripod Pinch: R 12, L 12 Tip-to-Tip Pinch: R 10, L 13 Strength Comments: Completed empty can and intact on L UE only. Increased weakness noted throughout R UE with minimal muscle palpation. For use of dyanometer completed at table top due to inability to complete hand without assistance of L UE or OT. - Edema Proximal Phalanx: 2nd R 8.2, L 7; 3rd 7.9, L 7; 4th R 7.4, L 6.7, 5th R 6.5, L 6.1 cm - Sensation Thumb: R 4.93, L WFL Index: R 4.08, L WFL Middle: R 4.08, L WFL Ring: R 3.22, L WFL Little: R 3.84, L WFL Stereognosis: Abnormal - Right Kinesthesia: Abnormal - Right Proprioception: Abnormal - Right Sensation Comments: Completed monofilament R hand finger pad only. Further ses uriel testing to occur upon first session. - Nine Hole Peg Right: Unable to complete at this time. - In-Hand Manipulation Finger to Palm Translation: Severe - Right, Normal - Left Palm to Finger Translation: Severe - Right, Normal - Left Shift: Moderate - Right, Normal - Left Rotation: Severe - Right, Normal - Left - Upper Limb Functional Index ULFI Score: 20.5 - Quick DASH-Disab of Arm,Shoulder& Hand Quick DASH Score: 86.6650 - Goals Goal:: Julissa to be able to complete AROM of RUE in an against gravity position to promote increased strength of RUE to from trace/gravity eliminated to against gravity movements for increased strength to 3+/5 for shoulder, elbow, wrist and hand as well as increased R chief concierge strength by 30 lbs to promote increased ability to manipulate self care items by d/c . Goal:: Julissa to be able to complete AROM of R shoulder, elbow, wrist and hand promote increased ability to complete AROM and fx tasks with R UE to promote returning to PLOF for ADL/IADLS sby d/c. Goal:: Julissa to be (i) to complete pain management techniques as needed for R UE to manage symptoms 4/5 trials 80% of the time by d/c. Goal:: Julissa to complete desensitization program of R UE as needed 4/5 trials 80% of the time to promote increased pain management and returning to PLOF for all ADL/IADls. Goal:: Julissa to be (i) to return to all ADL/IADLs with use of R UE 4/5 trials 80% of the time to promote increased ROM, strength,a nd ability to completed fx tasks by d/c. Julissa to be able to be mod I to complete buttoning shirt, cutting food, and completing simple grooming tasks 4/5 trials 80% of the time to promote returning to PLOF by end of 2 weeks. Goal:: Julissa to be mod I to complete B UE PRE HEP to promote increased ROM, edema management, and general pain management 4/5 trials 80% of the time to promote returning to PLOF by d/c. - Rehabilitation General Assessment: Julissa arrived with daughter, Jasmine, on this date of 01/27/19 for completion of OT evaluation. She reports having had shingles virus about 5 weeks ago in which she has been unable to move R UE since illness. She noted very limited active ROM for shoulder flexion, abduction, and IR and ER as well as limited elbow, wrist and hand of RUE. As a result, strength of her R UE is also severely impacted. Julissa was previously a very active 73 y/o women and worked at least 3-4 days a week, if not 5 days per week, at [employer] in [place], [place]. She noted she completed lifting, baking, and all job required duties. Since recent illness she has been unable to actively move or use R UE for functional tasks. She is limited in ADls and IADLs and often compensates with use of L UE. Julissa would benefit from skilled OT services to promote increased ROM, strength, edema management, a/e training, and general functional activity tolerated to return to PLOF for all ADl/IADls of RUE. Rehabilitation Potential: Good - Anticipated Interventions Anticipated Interventions: Early Active Motion, A/AAROM/PROM, Strengthening, Edema Control, Scar Care, Desensitization, Modalities, Orthoses, Joint Protecti on/Energy Conservation, Ergonomic Education, Dynamic Sitting Balance, Fine Motor Coord/[place], Neuro Reeducation, ADL Training, Education re assistive Equipment, Caregiver Training, Home Program - Visit Plan Frequency: 2x /Week Duration: 4 Weeks General Plan: OT to work on edema managment, PRE through strength program, ROM, ADL/IALDs retraining, sensory desensitization techniques, faciliatory techniques to promote increased movements needed of RUE, and general increased ability to use R UE at PLOF. TEXT: Thank you for the opportunity to evaluate your patient. For Medicare and Medicare HMO plans, please review the plan of care and approve it. It will need to be FAXED BACK to us at [phone] for Medicare purposes. Please let me know if there are questions or concerns regarding this plan of care. Physician Signature: Date:
--- NOTE | 2019-02-25 11:53 | HP.OTREVAL ---
Israel Bucio DO, It has been my pleasure to treat JULISSA MEEKS over the last 9 visits for CHF, CLL, Chronic A fib, Debility. Please see the progress note below for an update on the occupational therapy plan of care! Subjective: Arrived and noted some searing pain down arm. She noted 'forearm doing real good but shoulder is an issue'. She noted this morning she tried cheerios for breakfast and noted completed AAROM for R UE to complete task. Objective/Function: Completed reassessment today of 02/25/19 and measurements are as follows: ROM. Shoulder: - flexion: PROM R 0-143,No active movement in against gravity position; completed AROM in gravity eliminated R 0-56- compensations still noted; L WFL- AROM. - abduction: PROM R 0-146,-No active movement in against gravity position, L WFL - AROM. - IR AAROM R 0-40 in against gravity position, L WFL - AROM. - ER AAROM R 0-43 in against gravity position, L WFL AROM. ELbow: - AAROM R 0-32 with increased compensations noted, L WFL for AROM. Wrist: - flexion AROM in against gravity position R 0-57, L WFL. - extension: AROM in against gravity position R 0-45, L WFL. She is able to make full composite fist in aginst gravity position. Strength: Optical Effects Line Up Person R 35, L 45 lbs. Lateral R 10, L 14 lbs. Tripod R 10, L 13 lbs. Sensation testing with monofilament testing: R 2nd 4.17, 3rd 4.17, 4th 4.17, 5th 4.17, thumb 5.46-red lined meaning severe sensory deficits of R thumb. L 2nd 3.22, 3rd 3.22, 4th 3.22, 5th 3.22, thumb 3.22. 9 hole Pegboard test. R 122.81 s. L 26.42 s. Able to complete 9 hole pegboard test with supporting R arm on table. Complensations noted but able to complete. SHe has progressed since inital evaluation. Plan Frequency: 2x /Week Duration: 6 Weeks Visits in this POC: 8+12 for total of 21 visits Plan: Continue POC for 2x 6 weeks. Will continue to address promoting return of movement to RUE throught PRE, ROM, modalities, and general fucntional activity training. AROM of RUE in gravity eliminated and aginst gravity position remains limited at this time. She is to continue HEP and will continue with promoting return of movement. Goals - Goals Goal:: Julissa to be able to complete AROM of RUE in an against gravity position to promote increased strength of RUE to from trace/gravity eliminated to against gravity movements for increased strength to 3+/5 for shoulder, elbow, wrist and hand as well as increased R foundry tender strength by 30 lbs to promote increased ability to manipulate self care items by d/c . Goal:: Julissa to be able to complete AROM of R shoulder, elbow, wrist and hand promote increased ability to complete AROM and fx tasks with R UE to promote returning to PLOF for ADL/IADLS sby d/c. Goal:: Julissa to be (i) to complete pain management techniques as needed for R UE to manage symptoms 4/5 trials 80% of the time by d/c. Goal:: Julissa to complete desensitization program of R UE as needed 4/5 trials 80% of the time to promote increased pain management and returning to PLOF for all ADL/IADls. Goal:: Julissa to be (i) to return to all ADL/IADLs with use of R UE 4/5 trials 80% of the time to promote increased ROM, strength,a nd ability to completed fx tasks by d/c. Julissa to be able to be mod I to complete buttoning shirt, cutting food, and completing simple grooming tasks 4/5 trials 80% of the time to promote returning to PLOF by end of 2 weeks. Goal:: Julissa to be mod I to complete B UE PRE HEP to promote increased ROM, edema management, and general pain management 4/5 trials 80% of the time to promote returning to PLOF by d/c. Anticipated Interventions Anticipated Interventions: Early Active Motion, A/AAROM/PROM, Strengthening, Edema Control, Scar Care, Desensitization, Modalities, Orthoses, Joint Protection/Energy Conservation, Ergonomic Education, Dynamic Sitting Balance, Fine Motor Coord/[place], Neuro Reeducation, ADL Training, Education re assistive Equipment, Caregiver Training, Home Program Please do not hesitate to contact me at [phone] by phone or if you have questions or concerns regarding this new plan of care! Sincerely, Angelika Vargas
--- NOTE | 2019-04-12 11:35 | OTREVAL_ITS ---
Israel Bucio DO, It has been my pleasure to treat JULISSA MEEKS over the last 21 visits for CHF, CLL, Chronic A fib, Debility. Please see the progress note below for an update on the occupational therapy plan of care! Subjective: Arrived and noted feels she feels like she has made about 70% progress. 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 She has been back to work 4-7.5 hours for . She just started back last week. Objective/Function: Completed reassessment on this date 04/12/19. Results are as follows: ROM. Shoulder. - flexion: R 0-29, L WFL. - extension: R 0-42, L WFL. - Abduction: 0-18, L WFL. Increased compensations of lateral leaning with movements. This is progression as she is able to complete AROM. Elbow. - 0- 110. Forearm: -supination: R 0-71, L WFL. -pronation: R WFL, L WFL. Wrist: flexion R 0-70 , L WFL. -extension R 0-38, L WFL. Strength: Asset Protection Associate R 40 ,L 49 lbs. lateral R 10, L 14 lbs. tripod R 10, L 13 lbs. pincer R 10, L 13 lbs. Shoulder: - flexion: 2/5, L WFL. - abduction: -2/5, WFL. - IR: R 3+/5, L WFL. - ER: R 2/5, L WFL. Elbow: - flexion: R 3+/5, L WFL. -extension: R 4-/5, L WFL. Sensation testing completed with monofilamnet test: R hand finger pad: 2nd 3.61 ,3rd 3.22 ,4th 3.22 ,5th 3.22 ,thumb 3.22. R hand proximal phalanx: 2nd 3.22, 3rd 2.83, 4th 2.83, 5th 2.83, thumb 3.84. L hand finger pad: 2nd 2.83 ,3rd 2.83,4th 2.83 ,5th 2.83 ,thumb 2.83. L hand proximal phalanx: 2nd 2.83, 3rd 2.83, 4th 2.83, 5th 2.83, thumb 3.22. Completed 9 hole pegboard test: R: 52.58 s. L: 29.76 s. In general, Virgingia has progressed with OT. She is progressing with regaining ROM of R UE. Shoulder ROM remains limited and she often compensates with lateral leaning and other various movements to complete tasks. Plan Frequency: Every Other Week Duration: 4 Weeks Visits in this POC: 2 for total of 23 visits Plan: continue POC for 2x follow up every other week. These will focus on shoulder HEP and continued tasks to regain RUE ROM. 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 Goal:: Julissa to be able to complete AROM of R shoulder, elbow, wrist and hand promote increased ability to complete AROM and fx tasks with R UE to promote returning to PLOF for ADL/IADLS sby d/c. Goal:: Julissa to be (i) to complete pain management techniques as needed for R UE to manage symptoms 4/5 trials 80% of the time by d/c. Goal:: Julissa to complete desensitization program of R UE as needed 4/5 trials 80% of the time to promote increased pain management and returning to PLOF for all ADL/IADls. Goal:: Julissa to be (i) to return to all ADL/IADLs with use of R UE 4/5 trials 80% of the time to promote increased ROM, strength,a nd ability to completed fx tasks by d/c. Julissa to be able to be mod I to complete buttoning shirt, cutting food, and completing simple grooming tasks 4/5 trials 80% of the time to promote returning to PLOF by end of 2 weeks. Goal:: Julissa to be mod I to complete B UE PRE HEP to promote increased ROM, edema management, and general pain management 4/5 trials 80% of the time to promote returning to PLOF by d/c. Anticipated Interventions Anticipated Interventions: Early Active Motion, A/AAROM/PROM, Strengthening, Edema Control, Scar Care, Desensitization, Modalities, Orthoses, Joint Protection/Energy Conservation, Ergonomic Education, Dynamic Sitting Balance, Fine Motor Coord/[place], Neuro Reeducation, ADL Training, Education re assistive Equipment, Caregiver Training, Home Program Please do not hesitate to contact me at [phone] by phone or Fax: if you have questions or concerns regarding this new plan of care! Sincerely, Angelika Vargas, OTR/L
--- NOTE | 2019-04-27 08:04 | HP.OTDCSUM_ITS ---
HP - OT D/C Summary It has been my pleasure to treat JULISSA MEEKS under orders from Israel Bucio DO for the diagnosis of CHF, CLL, Chronic A fib, Debility for a total of 22 visit(s). Please see the following information for a summary of their discharge status. - Overall Improvement % Improvement: 85 - Objective Objective/Function: New measurements taken on this date 04/27/19: ROM: Shoulder: - flexion: R 0-28 , L WFL. - extension: R 0-57 , L WFL. - abduction: R 0-31 , L WFL. - IR: R 6-51-cokifdu by soft tissue , L WFL. - ER: R 0-42 , L WFL. Elbow: - R 0-118- limited by soft tissue, L WFL. Forearm: - pronation WFL. - supination R 73 , L WFL. Wrist: - flexion: R 0-68, L WFL. - Extension: R 0-31, L WFL. Strength: Shoulder: - flexion: 2/5, L WFL. - abduction: -2/5, WFL. - IR: R 3+/5, L WFL. - ER: R 2/5, L WFL. Elbow: - f lexion: R 3+/5, L WFL. Dynamometer: supervisor industrial garment extended R 45, L 52. supervisor industrial garment flexed R 42, L 50. lateral R 12, L 14. tripod R 13, ,L 13. pincer R 11, L 12. Sensory testing with use of monofilament test: Finger pad: R 2nd 3.22 ,3rd 3.22 ,4th 3.22 5th 3.22 ,thumb 3.84. Proximal Phalanx: R 2nd 2.83 ,3rd 2.83 ,4th 2.83 ,5th 3.22 ,thumb 3.84. Finger pad: L 2nd 2.83 ,3rd 2.83 ,4th 2.83, 5th 3.22 ,thumb 3.22. Proximal Phalanx: 2nd 2.83 ,3rd 2.83,4th 2.83 ,5th 2.83 ,thumb 2.83. 9 hole pegboard test: R: 37.09 s. L : 25.32 s - Goals Patient Goals: Regain Mobility, Regain Strength, Decrease Pain, Return to Work, Decrease Swelling/Stiffness, Improve Fine Motor Skills, Use Hand/Wrist/Arm Normally Again, Sleep Better, Decrease Tingling/Numbness, Increase ROM, Be More Independent in ADLS, Resume Former Household Responsibilities (Cooking,Cleaning,Yard, etc.), Resume Hobbies Goal:: Julissa to be able to complete AROM of RUE in an against gravity position to promote increased strength of RUE to from trace/gravity eliminated to against gravity movements for increased strength to 3+/5 for shoulder, elbow, wrist and hand as well as increased R supervisor industrial garment strength by 30 lbs to promote increased ability to manipulate self care items by d/c . Goal:: Julissa to be able to complete AROM of R shoulder, elbow, wrist and hand promote increased ability to complete AROM and fx tasks with R UE to promote returning to PLOF for ADL/IADLS sby d/c. Goal:: Julissa to be (i) to complete pain management techniques as needed for R UE to manage symptoms 4/5 trials 80% of the time by d/c. Goal:: Julissa to complete desensitization program of R UE as needed 4/5 trials 80% of the time to promote increased pain management and returning to PLOF for all ADL/IADls. Goal:: Julissa to be (i) to return to all ADL/IADLs with use of R UE 4/5 trials 80% of the time to promote increased ROM, strength,a nd ability to completed fx tasks by d/c. Julissa to be able to be mod I to complete buttoning shirt, cutting food, and completing simple grooming tasks 4/5 trials 80% of the time to promote returning to PLOF by end of 2 weeks. Goal:: Julissa to be mod I to complete B UE PRE HEP to promote increased ROM, edema management, and general pain management 4/5 trials 80% of the time to promote returning to PLOF by d/c. - Plan Plan: Julissa to be d/c'd today. She is to call with questions/concerns. The AROM of her R shoulder remains limited but compensations have decreased and further training to promote load distribution and ergonomics have been completed. She is able to verbalize the corrected body mechanics needed but needs cues to complete. She noted she has returned to work and would like to discontinue outpatient services as she has HEP for UE strengthening, ROM, and se nsory reintegration techniques of R UE and hand. She is to contact OT as needed. She was educated that if she is noticing change in functional status of RUE, for better or worse, she is to return for limitations or gains to be addressed and to continue to work on regaining function for ADL/IADLs of RUE. Additionally, throughout the course of therapy she has been consistently educated to discontinue reliance of L UE for completion of tasks and work on using RUE. She knows techniques and ROM has progressed significantly. We will take break from therapy at this time but if she does not notice improvement from where she is currently functioning of RUE in 1-2 months she is to call and get into doctor to return to OT. She has contact information of OT to contact as needed. - D/C Information If there are questions or concerns regarding this patient's occupational therapy, please fell free to call me at [phone]. Thank you for the referral of this patient. Sincerely, Angelika Vargas, OTR/Susie
== END 2019-04-27 19:00 | disposition home or self-care (01) ==
LOC: OT 07:00
PROVIDERS: Family Provider Family Medicine; PCP Family Medicine; Visit Provider Family Medicine
DX: I50.9 Heart failure, unspecified (principal); C91.10 Chronic lymphocytic leukemia of B-cell type not having achieved remission; I48.2 Chronic atrial fibrillation; R53.81 Other malaise; Z79.01 Long term (current) use of anticoagulants
CPT/HCPCS: 36415; 85610; 97110; 97112; 97162; 97166; 97168; 97530

== ENCOUNTER → 2019-05-07 11:40 | Outpatient (CLI) | payer MEDICARE, OTHER, SELFPAY ==
[2019-03-29 10:16] VITALS: BMI 32.1
[2019-05-07 12:04] LABS: International Normalized Ratio 1.6; Prothrombin Time (Protime)PT. 19.2 SECONDS (11.7-14.9)
== END ==
PROVIDERS: Family Provider Family Medicine; PCP Family Medicine; Referring Provider Internal Medicine Cardiovascular Disease; Visit Provider Internal Medicine Cardiovascular Disease
DX: I48.91 Unspecified atrial fibrillation (principal); Z79.01 Long term (current) use of anticoagulants
CPT/HCPCS: 36415; 85610

== ENCOUNTER 2019-05-17 13:30 | Outpatient (RCR) | payer MEDICARE, OTHER, SELFPAY ==
[2019-03-29 10:16] VITALS: BMI 32.1
[2019-05-17 14:06] LABS: International Normalized Ratio 1.9; Prothrombin Time (Protime)PT. 21.6 SECONDS (11.7-14.9)
== END 2019-05-26 23:59 ==
LOC: PAVLAB 13:30
PROVIDERS: Family Provider Family Medicine; PCP Family Medicine; Referring Provider Internal Medicine Cardiovascular Disease; Visit Provider Internal Medicine Cardiovascular Disease
DX: I48.91 Unspecified atrial fibrillation (principal); Z79.01 Long term (current) use of anticoagulants
CPT/HCPCS: 36415; 85610

== ENCOUNTER → 2019-06-08 08:05 | Outpatient (CLI) | payer MEDICARE, OTHER, SELFPAY ==
[2019-03-29 10:16] VITALS: BMI 32.1
[2019-06-08 08:29] LABS: BUN 28 mg/dL (7-18); BUN/Creat Ratio 18.9 RATIO (10-20); Calcium,Total 10.1 mg/dL (8.5-10.1); Chloride 104 mmol/L (98-107); Creatinine, Serum 1.48 mg/dL (0.55-1.02); EST Glomerular Filtration Rate 36 mL/min (>60); Est Glom Filt Rate - Afr Amer 44 mL/min (>60); Glucose 133 mg/dL (74-106); Potassium 3.9 mmol/L (3.5-5.1); Sodium Level 140 mmol/L (136-145)
[2019-06-08 08:30] LABS: Anion Gap 6 (5-15)
== END ==
PROVIDERS: Family Provider Family Medicine; PCP Family Medicine; Referring Provider Internal Medicine Cardiovascular Disease; Visit Provider Internal Medicine Cardiovascular Disease
DX: I48.91 Unspecified atrial fibrillation (principal)
CPT/HCPCS: 36415; 80048

== ENCOUNTER 2019-06-15 08:06 | Outpatient (RCR) | payer MEDICARE, OTHER, SELFPAY ==
[2019-03-29 10:16] VITALS: BMI 32.1
[2019-06-01 09:25] LABS: International Normalized Ratio 1.9; Prothrombin Time (Protime)PT. 21.4 SECONDS (11.7-14.9)
[2019-06-15 08:54] LABS: International Normalized Ratio 2.2; Prothrombin Time (Protime)PT. 24.3 SECONDS (11.7-14.9)
== END 2019-06-26 23:59 ==
LOC: PAVLAB 08:06
PROVIDERS: Family Provider Family Medicine; PCP Family Medicine; Referring Provider Internal Medicine Cardiovascular Disease; Visit Provider Internal Medicine Cardiovascular Disease
DX: I48.91 Unspecified atrial fibrillation (principal); Z79.01 Long term (current) use of anticoagulants
CPT/HCPCS: 36415; 85610

== ENCOUNTER 2019-07-21 08:16 | Outpatient (RCR) | payer MEDICARE, OTHER, SELFPAY ==
[2019-03-29 10:16] VITALS: BMI 32.1
[2019-07-07 11:33] LABS: International Normalized Ratio 1.9; Prothrombin Time (Protime)PT. 21.9 SECONDS (11.7-14.9)
[2019-07-21 09:06] LABS: International Normalized Ratio 1.9
== END 2019-07-26 23:59 ==
LOC: PAVLAB 08:16
PROVIDERS: Family Provider Family Medicine; PCP Family Medicine; Referring Provider Internal Medicine Cardiovascular Disease; Visit Provider Internal Medicine Cardiovascular Disease
DX: I48.91 Unspecified atrial fibrillation (principal); Z79.01 Long term (current) use of anticoagulants
CPT/HCPCS: 36415; 85610

== ENCOUNTER 2019-08-25 10:21 | Outpatient (RCR) | payer MEDICARE, OTHER, SELFPAY ==
[2019-07-12 09:59] VITALS: BMI 30.2
[2019-08-04 10:07] LABS: International Normalized Ratio 2.1; Prothrombin Time (Protime)PT. 23.6 SECONDS (11.7-14.9)
[2019-08-25 10:51] LABS: International Normalized Ratio 2.4; Prothrombin Time (Protime)PT. 26.2 SECONDS (11.7-14.9)
== END 2019-08-26 23:59 ==
LOC: PAVLAB 10:21
PROVIDERS: Family Provider Family Medicine; PCP Family Medicine; Referring Provider Internal Medicine Cardiovascular Disease; Visit Provider Internal Medicine Cardiovascular Disease
DX: I48.91 Unspecified atrial fibrillation (principal); Z79.01 Long term (current) use of anticoagulants
CPT/HCPCS: 36415; 85610

== ENCOUNTER 2019-09-22 09:49 | Outpatient (RCR) | payer MEDICARE, OTHER, SELFPAY ==
[2019-07-12 09:59] VITALS: BMI 30.2
[2019-09-06 13:58] VITALS: BMI 29.9
[2019-09-22 10:50] LABS: Absolute Lymphocyte Count 3.09 X10^3/uL (0.83-4.51); Absolute Neutrophil Count 1.5 X10^3/uL (2.0-7.7); Basophil# 0.02 X10^3/uL; Basophil% 0.4 % (0-1); Eosinophil# 0.15 X10^3/uL; Hematocrit 36.7 % (37-47); Hemoglobin 11.7 g/dL (12.0-15.0); Lymphocyte # 3.09 X10^3/ul (4.0); Lymphocyte % 60.9 % (19-41); Mean Corp Hgb Conc 31.9 g/dL (32-36); Mean Corpuscular Hgb 32.5 pg (27.0-32.0); Mean Corpuscular Volume 101.9 fL (81-99); Mean Platelet Vol. 9.2 fl (6.2-12.0); Monocyte# 0.29 X10^3/uL; Monocyte% 5.7 % (0-10); NRBC Flagged by Analyzer 0 % (0-5); Neutrophil # 1.51 X10^3/uL (2.7-7.7); Neutrophil % 29.8 % (47-70); Platelet Count 106 K/mm3 (150-450); RBC Distribution Width CV 14.6 % (11.6-14.6); RBC Distribution Width SD 54.4 fl (35.1-43.9); White Blood Count 5.1 K/mm3 (4.4-11.0)
[2019-09-22 10:56] LABS: International Normalized Ratio 1.9
[2019-09-22 10:59] LABS: Protein, Urine (Random) 12.2 mg/dL (<11.9); Protein:Creat Ratio 327 mg/g CRE (0-200)
[2019-09-22 11:06] LABS: Albumin, Serum 3.4 g/dL (3.2-5.0); BUN 27 mg/dL (7-18); BUN/Creat Ratio 18.4 RATIO (10-20); Calcium,Total 9.3 mg/dL (8.5-10.1); Chloride 104 mmol/L (98-107); Creatinine, Serum 1.47 mg/dL (0.55-1.02); EST Glomerular Filtration Rate 37 mL/min (>60); Est Glom Filt Rate - Afr Amer 44 mL/min (>60); Glucose 109 mg/dL (74-106); Phosphorus 2.8 mg/dL (2.5-4.9); Potassium 3.9 mmol/L (3.5-5.1); Sodium Level 142 mmol/L (136-145); Uric Acid 5.7 mg/dL (2.6-6.0)
[2019-09-22 11:15] LABS: Vitamin D,25 Hydroxy 58.4 ng/mL (29.95-100.01)
[2019-09-22 11:20] LABS: PTHIN 71.3 pg/mL (18.4-80.1)
== END 2019-09-25 23:59 ==
LOC: PAVLAB 09:49
PROVIDERS: Internal Medicine Nephrology; Family Provider Family Medicine; PCP Family Medicine; Referring Provider Internal Medicine Cardiovascular Disease; Visit Provider Internal Medicine Cardiovascular Disease
DX: I48.91 Unspecified atrial fibrillation (principal); Z79.01 Long term (current) use of anticoagulants; D63.1 Anemia in chronic kidney disease; N18.3 Chronic kidney disease, stage 3 (moderate); N25.81 Secondary hyperparathyroidism of renal origin; E79.0 Hyperuricemia without signs of inflammatory arthritis and tophaceous disease; E55.9 Vitamin D deficiency, unspecified
CPT/HCPCS: 36415; 80069; 82306; 82570; 83970; 84156; 84550; 85025; 85610

== ENCOUNTER 2019-10-11 11:18 | Outpatient (RCR) | payer MEDICARE, OTHER, SELFPAY ==
[2019-09-06 13:58] VITALS: BMI 29.9
[2019-10-11 11:48] LABS: International Normalized Ratio 1.7; Prothrombin Time (Protime)PT. 19.4 SECONDS (11.7-14.9)
== END 2019-10-26 23:59 ==
LOC: PAVLAB 11:18
PROVIDERS: Family Provider Family Medicine; PCP Family Medicine; Referring Provider Internal Medicine Cardiovascular Disease; Visit Provider Internal Medicine Cardiovascular Disease
DX: I48.91 Unspecified atrial fibrillation (principal); Z79.01 Long term (current) use of anticoagulants
CPT/HCPCS: 36415; 85610

== ENCOUNTER 2019-11-25 12:55 | Outpatient (RCR) | payer MEDICARE, OTHER, SELFPAY ==
[2019-09-06 13:58] VITALS: BMI 29.9
[2019-10-28 11:32] LABS: International Normalized Ratio 2.2; Prothrombin Time (Protime)PT. 24.2 SECONDS (11.7-14.9)
[2019-11-11 11:29] LABS: International Normalized Ratio 1.9; Prothrombin Time (Protime)PT. 22.1 SECONDS (11.7-14.9)
[2019-11-25 13:47] LABS: International Normalized Ratio 2.1; Prothrombin Time (Protime)PT. 23.2 SECONDS (11.7-14.9)
== END 2019-11-26 23:59 ==
LOC: PAVLAB 12:55
PROVIDERS: Family Provider Family Medicine; PCP Family Medicine; Referring Provider Internal Medicine Cardiovascular Disease; Visit Provider Internal Medicine Cardiovascular Disease
DX: I48.0 Paroxysmal atrial fibrillation (principal); Z79.01 Long term (current) use of anticoagulants
CPT/HCPCS: 36415; 85610

== ENCOUNTER 2019-12-16 10:20 | Outpatient (RCR) | payer MEDICARE, OTHER, SELFPAY ==
[2019-09-06 13:58] VITALS: BMI 29.9
[2019-12-16 10:59] LABS: Prothrombin Time (Protime)PT. 22.5 SECONDS (11.7-14.9)
== END 2019-12-25 23:59 ==
LOC: PAVLAB 10:20
PROVIDERS: Family Provider Family Medicine; PCP Family Medicine; Referring Provider Internal Medicine Cardiovascular Disease; Visit Provider Internal Medicine Cardiovascular Disease
DX: I48.0 Paroxysmal atrial fibrillation (principal); Z79.01 Long term (current) use of anticoagulants
CPT/HCPCS: 36415; 85610

== ENCOUNTER 2020-01-06 09:34 | Outpatient (RCR) | payer MEDICARE, OTHER, SELFPAY ==
[2019-09-06 13:58] VITALS: BMI 29.9
[2019-12-31 11:07] VITALS: BMI 31.6
[2020-01-06 10:31] LABS: International Normalized Ratio 2.5; Prothrombin Time (Protime)PT. 27.1 SECONDS (11.7-14.9)
== END 2020-01-25 23:59 ==
LOC: PAVLAB 09:34
PROVIDERS: Family Provider Family Medicine; PCP Family Medicine; Referring Provider Internal Medicine Cardiovascular Disease; Visit Provider Internal Medicine Cardiovascular Disease
DX: I48.0 Paroxysmal atrial fibrillation (principal); Z79.01 Long term (current) use of anticoagulants
CPT/HCPCS: 36415; 85610

== ENCOUNTER 2020-02-03 09:25 | Outpatient (RCR) | payer MEDICARE, OTHER, SELFPAY ==
[2019-12-31 11:07] VITALS: BMI 31.6
[2020-02-03 10:27] LABS: International Normalized Ratio 2.3; Prothrombin Time (Protime)PT. 24.4 SECONDS (11.7-14.9)
== END 2020-02-24 23:59 ==
LOC: PAVLAB 09:25
PROVIDERS: Family Provider Family Medicine; PCP Family Medicine; Referring Provider Internal Medicine Cardiovascular Disease; Visit Provider Internal Medicine Cardiovascular Disease
DX: I48.0 Paroxysmal atrial fibrillation (principal); Z79.01 Long term (current) use of anticoagulants; I48.20 Chronic atrial fibrillation, unspecified; I48.91 Unspecified atrial fibrillation
CPT/HCPCS: 36415; 85610

== ENCOUNTER 2020-04-13 10:03 | Outpatient (RCR) | payer MEDICARE, OTHER, SELFPAY ==
[2019-12-31 11:07] VITALS: BMI 31.6
[2020-03-06 12:59] VITALS: BMI 32.1
[2020-04-13 10:39] LABS: Hematocrit 38.4 % (37-47); Hemoglobin 12.5 g/dL (12.0-15.0); Mean Corp Hgb Conc 32.6 g/dL (32-36); Mean Corpuscular Volume 104.3 fL (81-99); Mean Platelet Vol. 9.2 fl (6.2-12.0); Platelet Count 100 K/mm3 (150-450); RBC Distribution Width CV 14.4 % (11.6-14.6); RBC Distribution Width SD 54.8 fl (35.1-43.9); Red Blood Count 3.68 M/mm3 (4.2-5.4); White Blood Count 6.9 K/mm3 (4.4-11.0)
[2020-04-13 10:50] LABS: Protein, Urine (Random) 13.1 mg/dL (<11.9); Protein:Creat Ratio 595 mg/g CRE (0-200)
[2020-04-13 10:51] LABS: International Normalized Ratio 2.3; Prothrombin Time (Protime)PT. 24.8 SECONDS (11.7-14.9)
[2020-04-13 11:05] LABS: Albumin, Serum 3.5 g/dL (3.2-5.0); BUN 34 mg/dL (7-18); BUN/Creat Ratio 21.1 RATIO (10-20); Calcium,Total 9.3 mg/dL (8.5-10.1); Chloride 104 mmol/L (98-107); Creatinine, Serum 1.61 mg/dL (0.55-1.02); EST Glomerular Filtration Rate 33 mL/min (>60); Est Glom Filt Rate - Afr Amer 40 mL/min (>60); Glucose 139 mg/dL (74-106); Phosphorus 2.7 mg/dL (2.5-4.9); Potassium 3.8 mmol/L (3.5-5.1); Sodium Level 143 mmol/L (136-145)
[2020-04-13 11:07] LABS: PTHIN 143.1 pg/mL (18.4-80.1)
[2020-04-13 11:11] LABS: Vitamin D,25 Hydroxy 62.7 ng/mL
== END 2020-04-25 23:59 ==
LOC: PAVLAB 10:03
PROVIDERS: Family Provider Family Medicine; PCP Family Medicine; Referring Provider Internal Medicine Cardiovascular Disease; Visit Provider Internal Medicine Cardiovascular Disease
DX: I48.0 Paroxysmal atrial fibrillation (principal); I48.20 Chronic atrial fibrillation, unspecified; I48.91 Unspecified atrial fibrillation; E55.9 Vitamin D deficiency, unspecified; Z79.01 Long term (current) use of anticoagulants
CPT/HCPCS: 36415; 80069; 82306; 82570; 83970; 84156; 85027; 85610

== ENCOUNTER 2020-06-15 10:44 | Outpatient (RCR) | payer MEDICARE, OTHER, SELFPAY ==
[2020-03-06 12:59] VITALS: BMI 32.1
[2020-06-15 11:53] LABS: International Normalized Ratio 2.5; Prothrombin Time (Protime)PT. 26.6 SECONDS (11.7-14.9)
== END 2020-06-26 23:59 ==
LOC: PAVLAB 10:44
PROVIDERS: Family Provider Family Medicine; PCP Family Medicine; Referring Provider Internal Medicine Cardiovascular Disease; Visit Provider Internal Medicine Cardiovascular Disease
DX: I48.0 Paroxysmal atrial fibrillation (principal); Z79.01 Long term (current) use of anticoagulants
CPT/HCPCS: 36415; 85610

== ENCOUNTER → 2020-06-30 12:19 | Outpatient (CLI) | payer MEDICARE, OTHER, SELFPAY ==
[2020-06-30 10:25] VITALS: BMI 32.7
--- NOTE | 2020-06-30 12:50 | RAD_ITS ---
STUDY: X-RAY CHEST REASON FOR EXAM: Female, 75 years old. SOB TECHNIQUE: PA and lateral views of the chest. COMPARISON: Comparison is made with prior study dated 01/18/2019. FINDINGS: The lungs are clear and expanded. There is no demonstrated pleural abnormality. There is moderate cardiac enlargement. Normal mediastinum and maggie. Normal visualized pulmonary arteries. There is atherosclerotic calcification of the aortic arch with tortuosity. There is demineralization of the osseous structures. Increased kyphosis. 60% loss of height of a mid dorsal vertebra. This is unchanged. Normal visualized ribs, clavicles, and shoulders. There is no demonstrated abnormality of the visualized soft tissue structures of the upper abdomen. RAD/Chest PA and Lateral IMPRESSION: Splenomegaly. Impression of a moderate mid dorsal vertebrae. Electronically Signed: Ramakrishna Cummins, at 15:17 EDT , Service support ,
[2020-06-30 13:43] LABS: Absolute Lymphocyte Count 4.64 X10^3/uL (0.83-4.51); Absolute Neutrophil Count 1.7 X10^3/uL (2.0-7.7); Basophil# 0.02 X10^3/uL; Basophil% 0.3 % (0-1); Eosinophil# 0.11 X10^3/uL; Eosinophils% 1.6 % (0-5); Hematocrit 34.2 % (37-47); Hemoglobin 10.8 g/dL (12.0-15.0); Lymphocyte # 4.64 X10^3/ul (4.0); Lymphocyte % 68.4 % (19-41); Mean Corp Hgb Conc 31.6 g/dL (32-36); Mean Corpuscular Hgb 33.6 pg (27.0-32.0); Mean Corpuscular Volume 106.5 fL (81-99); Mean Platelet Vol. 10.1 fl (6.2-12.0); Monocyte# 0.31 X10^3/uL; Monocyte% 4.6 % (0-10); NRBC Flagged by Analyzer 0 % (0-5); Neutrophil # 1.69 X10^3/uL (2.7-7.7); POSITIVE COUNT YES; Platelet Count 95 K/mm3 (150-450); RBC Distribution Width CV 15.1 % (11.6-14.6); RBC Distribution Width SD 59.6 fl (35.1-43.9); Red Blood Count 3.21 M/mm3 (4.2-5.4); White Blood Count 6.8 K/mm3 (4.4-11.0)
[2020-06-30 13:44] LABS: Differential Indicated SCAN CRITERIA MET
[2020-06-30 14:02] LABS: Anion Gap 6 (5-15); BUN 45 mg/dL (7-18); BUN/Creat Ratio 21.7 RATIO (10-20); Calcium,Total 9.2 mg/dL (8.5-10.1); Chloride 105 mmol/L (98-107); Creatinine, Serum 2.07 mg/dL (0.55-1.02); EST Glomerular Filtration Rate 25 mL/min (>60); Est Glom Filt Rate - Afr Amer 30 mL/min (>60); Glucose 105 mg/dL (74-106); Potassium 4.2 mmol/L (3.5-5.1); Sodium Level 141 mmol/L (136-145)
[2020-06-30 14:03] LABS: BNP,B-Type NATRIURETIC PEPTIDE 1358.2 pg/mL (0-100)
[2020-06-30 14:13] LABS: Hypochromasia 1+; Platelet Estimate SLT DEC (ADEQ)
== END ==
PROVIDERS: PCP Family Medicine; Referring Provider Nurse Practitioner Family; Visit Provider Nurse Practitioner Family
DX: I11.0 Hypertensive heart disease with heart failure (principal); I50.32 Chronic diastolic (congestive) heart failure; I48.0 Paroxysmal atrial fibrillation; R06.00 Dyspnea, unspecified; Z79.01 Long term (current) use of anticoagulants
CPT/HCPCS: 36415; 71046; 80048; 83880; 85025

== ENCOUNTER 2020-06-30 15:33 | Inpatient (IN) | payer MEDICARE, OTHER, SELFPAY ==
[2020-06-30] VITALS (9 sets, daily range): BP systolic 136–183; BP diastolic 57–80; PULSE 34–43; RESP 16–20; TEMP 36.2–37.2; O2SAT 95–99; BMI 32.7; BMI 32.1; BMI 33.6
--- NOTE | 2020-06-30 15:48 | EKG12_ITS ---
Test Reason : Blood Pressure : / mmHG Vent. Rate : 038 BPM Atrial Rate : 037 BPM P-R Int : 000 ms QRS Dur : 082 ms QT Int : 552 ms P-R-T Axes : 000 045 270 degrees QTc Int : 438 ms Junctional bradycardia Septal infarct age undetermined Abnormal ECG Confirmed by JOSEPH CHAN, RAJ ([id number]), department editor CHRIS FORREST ([id number]) on 07/05/2020 10:15:42 AM Referred By: AP Confirmed By:RAJ RUIZ MD
--- NOTE | 2020-06-30 15:59 | ED.VIS.DYS ---
History of Present Illness Informant: Patient Onset: Weeks - 2 weeks Activity at onset: Exertion, Light Activity Timing: Continuous Quality: Dyspnea on exertion Current Severity: Mild Maximum Severity: Severe Worsened by: Exertion Relieved by: Rest Associated Symptoms: Negative for: Bloody Sputum, Chills, Clear sputum, Cough, Ear pain, Fever, Green sputum, Post-nasal drainage, Rhinorrhea, Sore throat, Sweats, White sputum, Yellow sputum Chest Pain: None Narrative: 75-year-old female history of CHF and paroxysmal atrial fibrillation presents to the emergency department with shortness of breath. She went to her training and development professional today because she had dyspnea on exertion for 2 weeks they were found her to be in a junctional bradycardia is under the emergency department for evaluation. She is not lightheaded or dizzy no syncope or near syncope no chest pain no vomiting she does endorse some leg swelling no fevers or cough rest review of systems negative PE Risk Factors: Negative for: Cancer, OCP + Smoking + > 35, Prior DVT or PE, Recent immobilization, Recent surgery, Recent travel Prior similar symptoms: Yes Recent Illness/Hospitalization: No <Adam Bolden - Last Filed: 06/30/20 16:30> <Yakov Moore - Last Filed: 06/30/20 16:46> Chief Complaint: Shortness of Breath Past Medical History Prior records reviewed: Yes Surgical History: appendectomy, cholecystectomy, hysterectomy, - Smoking Status: Never smoker <Adam Bolden - Last Filed: 06/30/20 16:30> <Yakov Moore - Last Filed: 06/30/20 16:46> - Allergies and Home Meds Allergies/Adverse Reactions: Allergies erythromycin base [Erythromycin Base] Adverse Reaction (Intermediate, Verified 06/30/20 15:33) Unknown Penicillins Adverse Reaction (Intermediate, Verified 06/30/20 15:33) Rash Primary Care Physician: Israel Bucio DO [Primary Care Provider] - Review of Systems All systems negative except as indicated General: Denies: Chills, Fever, Sweats Eyes: Denies: Visual changes - bilaterally, Diplopia ENT: Denies: Rhinorrhea, Sore throat Cardiovascular: Denies: Chest pain, Palpitations Respiratory: Reports: Dyspnea, Dyspnea on exertion. Denies: Cough, Sputum, Orthopnea, Paroxysmal nocturnal dyspnea Gastrointestinal: Denies: Abdominal pain, Nausea, Vomiting, Diarrhea, Melena, Hematochezia Genitourinary: Denies: Dysuria, Hematuria, Frequency Musculoskeletal: Denies: Back pain, Extremity Pain Skin: Denies: Rash, Wounds Neurological: Denies: Headache, Weakness, Numbness <Adam Bolden - Last Filed: 06/30/20 16:30> Physical Exam Vital Signs/Narrative: Vital Signs Temp Pulse Resp BP Pulse Ox 06/30/20 15:33 97.1 F L 34 L 20 H 170/70 H 95 Inital Vital Signs reviewed: Yes General: Well nourished, Well developed, No Acute Distress Head: Normocephalic, Atraumatic Eyes: Perrl, EOMI ENT: Moist mucous membranes, No rhinorrhea Neck: Supple, Nontender Cardiovascular: Regular rate, Regular rhythm, No murmurs Respiratory: No distress, Chest nontender, Diminished Abdomen: Soft, Nontender, Nondistended, Normal bowel sounds Back: Nontender, Normal Inspection Extremities: Nontender, Edema. Negative for: Calf Tenderness Skin: Normal color, No rash Neurological: Alert, Oriented x3, Cranial nerves II-XII grossly intact, Normal Strength, Normal Sensation Psychological: Normal affect, Normal Mood <Adam Bolden - Last Filed: 06/30/20 16:30> Vital Signs/Narrative: Vital Signs Temp Pulse Resp BP Pulse Ox 06/30/20 16:06 37 L 19 H 136/57 H 98 06/30/20 15:33 97.1 F L 34 L 20 H 170/70 H 95 <Yakov Moore - Last Filed: 06/30/20 16:46> Diagnostic/Tx/Re-eval - Rhythm Strip Rhythm Strip: Junctional bradycardia Rate: 40 - EKG Initial EKG Interpretation: - - Junctional bradycardia Prior: Changed - Medical Decision Making Patient presents from cardiology office for junctional bradycardia seen on her EKG. She was there for shortness of breath for the last 2 weeks. They did labs and a chest x-ray. She does have evidence of mild heart failure on her BNP level as well as her chest x-ray. However her heart rate was between 30 bpm and 40 bpm and EKG demonstrated a junctional bradycardia. We spoke with her training and development professional Dr. King recommended admission to the hospital for observation and holding her beta-josh and giving her a dose of IV Lasix in the emergency department. Hospitalist contacted for admission. Blood pressure is stable her blood pressure is actually slightly elevated arrival she has no complaints at this time she is essentially asymptomatic. <Adam Bolden - Last Filed: 06/30/20 16:30> - Medical Decision Making Patient was seen and evaluated by myself. I did discuss the case with Dr. King. The patient is bradycardic but otherwise asymptomatic. She does have mild evidence of CHF. The plan will be to diurese the patient, hold rate controlling medications, and admit to a monitored unit. <Yakov Moore - Last Filed: 06/30/20 16:46> ED Disposition <Adam Bolden - Last Filed: 06/30/20 16:30> <Yakov Moore - Last Filed: 06/30/20 16:46> - Plan for ED Patient: Disposition: Acute Care Hospital [facility] Diagnosis: Junctional bradycardia, Acute exacerbation of CHF (congestive heart failure), CLL (chronic lymphocytic leukemia), Atrial fibrillation, Chronic renal insufficiency Referrals: Israel Bucio DO [Primary Care Provider] -
--- NOTE | 2020-06-30 16:43 | PCM.HP.STD ---
<Danis Chatterjee - Last Filed: 06/30/20 16:43> Problem List (1) Acute exacerbation of CHF (congestive heart failure) Status: Acute Qualifiers: Heart failure type: diastolic Qualified Code(s): I50.33 - Acute on chronic diastolic (congestive) heart failure (2) Junctional bradycardia Status: Acute (3) Chronic renal insufficiency Status: Chronic (4) Chronic atrial fibrillation Status: Chronic (5) Paroxysmal atrial fibrillation Status: Chronic Comment: DCCV on 03/02/2019; (6) History of cardioversion Status: Chronic (7) Hypertension Status: Chronic Qualifiers: Hypertension type: essential hypertension Qualified Code(s): I10 - Essential (primary) hypertension (8) CLL (chronic lymphocytic leukemia) Status: Chronic History of Present Illness Date of Admission: 06/30/20 Chief Complaint: SOB, bradycardia The patient is a 75 year old F with pmhx of pAfib with cardioversion in 2019, diastolic CHF, CKD stage III, CLL, who presented to the ER after being sent from the cardiologists office with bradycardia. The patient went to see the cake decorator as she has been increasingly SOB for the last 2 weeks. She has noticed worsening dyspnea with exertion and increased LE edema. She sleeps propped up with pillows, denies PND. She does not note an increase in weight. She also has been intermittently lightheaded at home. She denies chest pain/pressure/tightness. In the cardiology office she was noted to have junctional bradycardia in the 30s. She does take atenolol. 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) Chronic renal insufficiency (Chronic) Chronic atrial fibrillation (Chronic) Diastolic congestive heart failure (Chronic) Paroxysmal atrial fibrillation (Chronic) DCCV on 03/02/2019; History of cardioversion (Chronic 03/02/19) Hypertension (Chronic) Atrial fibrillation (Chronic) CLL (chronic lymphocytic leukemia) (Chronic) Medical History: Medical History (Last Reviewed 06/30/20 @ 10:59 by Lissette Stephenson) Hypertension (Chronic) I10 Atrial fibrillation (Chronic) I48.91 CLL (chronic lymphocytic leukemia) (Chronic) C91.10 Proteinuria R80.9 Chronic dizziness Kidney disease N28.9 Renal insufficiency N28.9 Nausea R11.0 Shingles B02.9 Shingles (herpes zoster) polyneuropathy B02.23 right arm Allergies erythromycin base [Erythromycin Base] Adverse Reaction (Intermediate, Verified 06/30/20 15:33) Unknown Penicillins Adverse Reaction (Intermediate, Verified 06/30/20 15:33) Rash Home Medications: Ambulatory Orders Medication Instructions Recorded Multivitamins,Therapeutic 1 tab PO DAILY 07/18/14 [Multivitamin] Allopurinol [Zyloprim] 100 mg PO DAILYCM 01/20/17 capsicum (cayenne) 450 mg capsule 450 mg PO DAILY cap 02/04/19 Potassium Chloride [K-Dur] 40 meq PO BID 09/06/19 telmisartan 40 mg tablet 40 mg PO DAILY #1 tab 12/31/19 turmeric 400 mg capsule 800 mg PO DAILY cap 12/31/19 Warfarin Sodium [Coumadin] 8 mg PO SUFRSA 06/30/20 Warfarin [Coumadin ([facility]KC)] 2.5 mg PO MOTUWETH 06/30/20 calcitriol 0.25 mcg capsule 0.25 mcg PO DAILY 06/30/20 coenzyme Q10 50 mg capsule 50 mg PO DAILY cap 06/30/20 furosemide 40 mg tablet 40 mg PO BID tab 06/30/20 magnesium oxide 500 mg tablet 1,000 mg PO DAILY tab 06/30/20 Surgical History: Surgical History (Last Reviewed 06/30/20 @ 10:59 by Lissette Stephenson) History of cardioversion (Chronic) Onset Date: 03/02/19 Z98.890 History of cholecystectomy Z98.890, Z90.49 History of hysterectomy Z98.890, Z90.710 History of parathyroid surgery Z98.890 Surgical History: appendectomy, cholecystectomy, hysterectomy, - Psychiatric History: 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 Denies: Chest Pain, Chest Pressure, Chest Tightness, Heaviness, Palpitations, Paroxysmal Noc. Dyspnea, Syncope Respiratory: Reports: Shortness of Breath, Shortness of breath at rest, Shortness of breath upon exertion. Denies: Cough, Sputum production, Wheezing Gastrointestinal: Denies: Abdominal Pain, Diarrhea, Nausea, Vomiting Genitourinary: Denies: Dysuria, Frequency, Urgency Musculoskeletal: Denies: Joint Pain, Joint Tenderness Skin: Denies: Lesions, Rash, Wounds Neurological: Denies: Numbness, Tingling, Focal weakness Psychiatric: Denies: Anxiety, Depression, Homicidal Ideations, Suicidal Ideations Hematologic/ Lymphatic: Denies: Easy Bruising, Easy Bleeding VTE Information - Inpt Only VTE Present on Admission: No VTE Mechan Device Prophylaxis: None VTE Pharm Prophylaxis ordered?: Yes Patient Problems: Active and Suspected Problems (Last Reviewed 06/30/20 @ 10:59 by Lissette No) Junctional bradycardia (Acute) Acute exacerbation of CHF (congestive heart failure) (Acute) - Physical Exam Vitals/I&O's: Vital Signs Temp Pulse Resp BP Pulse Ox 97.1 F L 37 L 19 H 136/57 H 98 06/30/20 15:33 06/30/20 16:06 06/30/20 16:06 06/30/20 16:06 06/30/20 16:06 Oxygen Delivery Method Room Air Weight: 205 lb Body Mass Index (BMI) 32.1 General: Alert, Oriented x3, Cooperative HEENT: Atraumatic, PERRLA, EOMI, Normocephalic Neck: Supple, No JVD, Negative Carotid Bruits Lungs: Clear to auscultation, Normal air movement Cardiovascular: No murmurs, Bradycardic Abdomen: Bowel Sounds Present, Soft, Non Tender Extremities: Capillary Refill Less than 3 Seconds, Edema - 2+ pitting edema BLE Skin: No rashes, No breakdown Musculoskeletal: No Tenderness to Palpation of Joints or Extremities Neurological: Cranial nerves II-XII grossly intact Psych/Mental Status: Normal Affect, Appropriate, Alert and oriented to time, place, person, mood and affect Assessment/Plan All Active Problems (Last Reviewed 06/30/20 @ 10:59 by Lissette Nolt) Junctional bradycardia (Acute) Hyponatremia with excess extracellular fluid volume (Acute) Acute exacerbation of CHF (congestive heart failure) (Acute) 1. Junctional bradycardia - per EKG, rate in 30s. Hold atenolol. Monitor overnight. TSH pending. Consult cardiology. 2. Acute on chronic diastolic CHF - BNP 1358, increased SOB with LE edema. CXR without significant findings and lungs clear on exam. Start IV lasix, sodium and fluid restrict, trend I/O. Last echo 12/2018 EF 60%, no wall abnormalities, 1+ MVI, 1+ TVI, PASP 32 mmHg, repeat at this time. 3. pAfib - s/p cardioversion 2019. hold atenolol. INR pending. continue coumadin. 4. 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 possibly cardiorenal. will trend with diuretic therapy. 5. HTN - initially bp elevated in ER however improved now. prn hydralazine. pt recently resumed atenolol due to high BP. 6. Hx CLL - in remission, follows Dr. Rivera. DVT ppx: coumadin This patient was seen by Danis Chatterjee PA-C under the supervision of Dr. Hawk. <Sánchez Hawk - Last Filed: 06/30/20 17:18> History of Present Illness The patient is a 75 year old F presents with shortness of breath. Saw her cake decorator who found the patient to be in a junctional bradycardia and sent the patient to the emergency room. Patient had a heart rate in the 30s. Patient recently started on atenolol for blood pressure issues. Patient had chest x-ray is concerning for CHF and did receive IV furosemide. [] Past Medical History Medical History: Medical History (Last Reviewed 06/30/20 @ 17:[address] Sánchez Hawk, DO) Hypertension (Chronic) I10 Atrial fibrillation (Chronic) I48.91 CLL (chronic lymphocytic leukemia) (Chronic) C91.10 Proteinuria R80.9 Chronic dizziness Kidney disease N28.9 Renal insufficiency N28.9 Nausea R11.0 Shingles B02.9 Shingles (herpes zoster) polyneuropathy B02.23 right arm Allergies erythromycin base [Erythromycin Base] Adverse Reaction (Intermediate, Verified 06/30/20 15:33) Unknown Penicillins Adverse Reaction (Intermediate, Verified 06/30/20 15:33) Rash Surgical History: Surgical History (Last Reviewed 06/30/20 @ 10:59 by Lissette Stephenson) History of cardioversion (Chronic) Onset Date: 03/02/19 Z98.890 History of cholecystectomy Z98.890, Z90.49 History of hysterectomy Z98.890, Z90.710 History of parathyroid surgery Z98.890 Surgical History: appendectomy, cholecystectomy, hysterectomy, - Psychiatric History: 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 Sánchez Hawk, DO) Mother Hypertension Heart disease Father Diabetes Myocardial infarction Review of Systems Constitutional: Denies: Chills, Fever, Weight Change HEENT: Denies: Head Aches, Sinus Congestion, Sinus Drainage Cardiovascular: Reports: Edema, Orthopnea. Denies: Chest Pain, Chest Pressure, Chest Tightness, Heaviness, Palpitations, Paroxysmal Noc. Dyspnea, Syncope Respiratory: Reports: Shortness of Breath, Shortness of breath at rest, Shortness of breath upon exertion. Denies: Cough, Sputum production, Wheezing Gastrointestinal: Denies: Abdominal Pain, Diarrhea, Nausea, Vomiting Genitourinary: Denies: Dysuria, Frequency, Urgency Musculoskeletal: Denies: Joint Pain, Joint Tenderness Skin: Denies: Lesions, Rash, Wounds Neurological: Denies: Focal weakness, Numbness, Tingling Psychiatric: Denies: Anxiety, Depression, Homicidal Ideations, Suicidal Ideations Hematologic/ Lymphatic: Denies: Easy Bruising, Easy Bleeding VTE Information - Inpt Only VTE Present on Admission: No VTE Mechan Device Prophylaxis: None VTE Pharm Prophylaxis ordered?: Yes - Physical Exam Vitals/I&O's: Vital Signs Temp Pulse Resp BP Pulse Ox 36.6 C 35 L 17 136/57 H 98 06/30/20 16:54 06/30/20 16:54 06/30/20 16:54 06/30/20 16:54 06/30/20 16:54 Oxygen Delivery Method Room Air Weight: 97.4 kg Body Mass Index (BMI) 33.6 General: Alert, Cooperative HEENT: Atraumatic, Normocephalic Lungs: Clear to auscultation, No rhonchi Cardiovascular: Normal S1, Normal S2, Bradycardic Abdomen: Bowel Sounds Present, Soft, Non Tender, Non-Distended Extremities: Edema Skin: No rashes Psych/Mental Status: Normal Affect, Appropriate Laboratory Results 06/30/20 16:45: PT 30.6 H, INR 3.0 06/30/20 16:45: Troponin I Pending, TSH Pending Assessment/Plan Patient seen and examined independently. Data reviewed. I agree with the above note by the physician circulation assistant. 1. Junctional bradycardia: Hold beta-josh. Consult cardiology. If no improvement, patient may require a pacemaker. 2. Acute heart failure preserved ejection fraction: May be associate with bradycardia. IV furosemide. Inpatient E&M: 16555 Init Hosp L3
[2020-06-30] MEDS: Furosemide 40 MG/4 ML Vial IV ×2 (16:52→19:05)
[2020-06-30 17:07] LABS: Prothrombin Time (Protime)PT. 30.6 SECONDS (11.7-14.9)
[2020-06-30 17:20] LABS: Thyroid Stim Hormone (TSH) 3.82 uIU/mL (0.358-3.74)
--- NOTE | 2020-06-30 17:29 | ECHOCS_ITS ---
Reason For Study: CHF Procedure This was a 2D Doppler, Color Flow transthoracic echocardiogram. Contrast injection was performed. The study was technically difficult. Exam performed portable in patient room. Left Ventricle Normal LV size. The estimated ejection fraction is 65 %. Stage 2 diastolic dysfunction. No regional wall motion abnormalities noted. Right Ventricle Normal RV size. Normal systolic function. Atria The left atrium is severely enlarged. Normal right atrium. No doppler evidence for ASD. Mitral Valve There is no mitral valve stenosis. No mitral valve insufficiency. Tricuspid Valve There is no tricuspid stenosis. Pulmonary artery systolic pressure is 45 mmHg. Mild to moderate (1- 2+) eccentric tricuspid valve insufficiency. Aortic Valve Aortic sclerosis, no stenosis. There is no aortic stenosis. No aortic valve insufficiency. Pulmonic Valve There is no pulmonic valvular stenosis. No pulmonic valve insufficiency. Great Vessels Normal aortic root. Pericardium/Pleural No pericardial effusion. Medication Diluted definity 2ml given slow IV push to enhance endocardial definition. MMode/2D Measurements & Calculations LVIDd: 5.3 cm IVSd: 1.3 cm Ao root diam: 3.3 cm LVIDs: 3.2 cm LVPWd: 1.2 cm RVDd: 5.5 cm FS: 39.6 % LAV(MOD-bp): 149.8 ml LA A4 area: 33.1 cm2 LA dimension(2D): 5.8 cm LAV(MOD-bp) Indexed: 72.9 ml/m2 LAV(MOD-sp2): 162.2 ml LAV(MOD-sp4): 129.0 ml RA A4 area: 24.9 cm2 Doppler Measurements & Calculations MV E max simon: 103.5 cm/sec Lat Peak E' Simon: 8.3 cm/sec Med Peak E' Simon: 4.0 cm/sec E/E' lat: 12.5 E/E' med: 25.9 Ao V2 max: 164.0 cm/sec LV V1 max: 111.7 cm/sec PA V2 max: 80.2 cm/sec Ao max P.8 mmHg LV V1 max P.0 mmHg Ao V2 mean: 109.4 cm/sec Ao mean P.3 mmHg Ao V2 VTI: 34.2 cm TR max simon: 314.8 cm/sec TR max P.6 mmHg Interpretation Summary The estimated ejection fraction is 65 %. Stage 2 diastolic dysfunction. The left atrium is severely enlarged. Mild to moderate (1-2+) eccentric tricuspid valve insufficiency. The study was technically difficult. Contrast injection was performed. Ordering Physician: Sánchez Hawk Referring Physician: Israel Bucio Performed By: Abi Osullivan, SIMIN, RVT
--- NOTE | 2020-06-30 18:16 | NURSING ---
Home dose of telmisartan sent to pharmacy for verification.
[2020-06-30] MEDS: 0.9% Saline Lock 10 ML Syringe IV (19:05)
[2020-07-01] VITALS (11 sets, daily range): BP systolic 127–175; BP diastolic 54–91; PULSE 37–52; RESP 18–20; TEMP 37.1–38; O2SAT 97–99
[2020-07-01] MEDS: Ondansetron 4 MG/2 ML Vial IV ×2 (05:20→14:19)
[2020-07-01] MEDS: 0.9% Saline Lock 10 ML Syringe IV ×4 (05:20→18:09)
[2020-07-01 07:24] LABS: Anion Gap 8 (5-15); BUN 44 mg/dL (7-18); BUN/Creat Ratio 22.3 RATIO (10-20); Calcium,Total 8.5 mg/dL (8.5-10.1); Chloride 107 mmol/L (98-107); Creatinine, Serum 1.97 mg/dL (0.55-1.02); EST Glomerular Filtration Rate 26 mL/min (>60); Est Glom Filt Rate - Afr Amer 32 mL/min (>60); Estimated Creatinine Clearance 23.26 ml/min; Glucose 152 mg/dL (74-106); Potassium 4.6 mmol/L (3.5-5.1); Sodium Level 140 mmol/L (136-145)
[2020-07-01 08:44] LABS: Free T3 1.7 pg/mL (2.18-3.98)
[2020-07-01] MEDS: Allopurinol 100 MG Tablet PO (09:16)
[2020-07-01] MEDS: Magnesium Chloride 64 MG Delay Rel.Tablet 128 MG PO (09:16)
[2020-07-01] MEDS: Furosemide 40 MG/4 ML Vial IV ×2 (09:16→17:59)
[2020-07-01] MEDS: TELMISARTAN 40 MG TABLET PO (09:16)
[2020-07-01] MEDS: Multivitamins,Therapeutic Tablet 1 TABLET PO (09:16)
--- NOTE | 2020-07-01 10:11 | PN_ITS ---
Patient Problems: Active and Suspected Problems (Last Reviewed 06/30/20 @ 17:[address] Sánchez Hawk, DO) Junctional bradycardia (Acute) Acute exacerbation of CHF (congestive heart failure) (Acute) Subjective: Patient seen and examined. She has no complaints this morning. She has been managed for bradycardia. Heart rate has remained in the high 30s and low 40s. Cardiology on board. She has a low-grade fever today of 100.4. Chemistry is unremarkable. TSH is 3.82 Vitals/I&O's: Vital Signs Temp Pulse Resp BP Pulse Ox 100.4 F H 41 L 20 H 144/58 H 98 07/01/20 09:08 07/01/20 09:08 07/01/20 09:08 07/01/20 09:08 07/01/20 09:08 Oxygen Flow Rate (L/min) 2 Oxygen Delivery Method Nasal Cannula Weight: 208 lb 5.389 oz Body Mass Index (BMI) 33.6 Intake and Output for Last 24 Hours 06/29/20 06/30/20 07/01/20 23:59 23:59 23:59 Intake Total 240 / 240 Output Total 1150 / 1150 Balance -910 / -910 General: Alert, Oriented x3, Cooperative, No apparent distress HEENT: Atraumatic, PERRLA, EOMI, Normocephalic Oral: Dry Mucosa Neck: Supple, No JVD, Negative Carotid Bruits, Negative Hepatojugular Reflux, No Nodes Lungs: Clear to auscultation, Normal air movement, No rhonchi, No wheeze Cardiovascular: Normal S1, Normal S2, No murmurs, Bradycardic Abdomen: Bowel Sounds Present, Soft, Non Tender, Non-Distended, No Hepato- splenomegaly Extremities: No clubbing, No cyanosis, No edema, Capillary Refill Less than 3 Seconds Skin: No rashes, No breakdown Musculoskeletal: No Tenderness to Palpation of Joints or Extremities Lymphatic: No Cervical, Supraclavicular, or Inguinal Adenopathy Neurological: Cranial nerves II-XII grossly intact, Neuro grossly intact, Motor Exam 5/5 strength throughout Psych/Mental Status: Normal Affect, Appropriate, Alert and oriented to time, place, person, mood and affect Laboratory Results 06/30/20 16:45: PT 30.6 H, INR 3.0 06/30/20 16:45: Troponin I < 0.015, TSH 3.82 H 07/01/20 05:50: Sodium 140, Potassium 4.6, Chloride 107, Carbon Dioxide 25.0, Anion Gap 8, BUN 44 H, Creatinine 1.97 H, Estim Creat Clear Calc 23.26, Est GFR (MDRD) Af Amer 32 L, Est GFR (MDRD) Non-Af 26 L, BUN/Creatinine Ratio 22.3 H, Glucose 152 H, Calcium 8.5 07/01/20 08:02: Free T4 1.20, Free T3 pg/dL 1.7 L Current Medications Acetaminophen (Tylenol) 650 mg PO Q6H PRN PRN PRN Reason: Pain Score 1-10/Temp > 100.7 F [facility] Admin: 07/01/20 09:16 Dose: 100 mg Documented by: Furosemide (Lasix) 40 mg IV BID@1000,1800 [facility] Last Admin: 07/01/20 09:16 Dose: 40 mg Documented by: Magnesium Chloride (Mag64) 128 mg PO DAILY [facility] Last Admin: 07/01/20 09:16 Dose: 128 mg Documented by: Melatonin (Melatonin) 3 mg PO X1 ONE Stop: 07/01/20 09:20 Multivitamins (Multivitamin) 1 tablet PO DAILY@0800 [facility] Last Admin: 07/01/20 09:16 Dose: 1 tablet Documented by: Nitroglycerin (Nitrostat) 0.4 mg SUBLINGUAL Q5M PRN PRN Reason: CARDIAC/CHEST PAIN Ondansetron HCl (Zofran) 4 mg IV Q8H PRN PRN PRN Reason: NAUSEA/VOMITING Last Admin: 07/01/20 05:20 Dose: 4 mg Documented by: Potassium Chloride (K-Dur) [facility] Last Admin: 07/01/20 09:17 Dose: 40 meq Documented by: Sodium Chloride () 10 - 40 ml IV UD PRN PRN Reason: SALINE FLUSH Last Admin: 07/01/20 08:44 Dose: 10 ml Documented by: Telmisartan (Telmisartan) 40 mg PO DAILY [facility] Last Admin: 07/01/20 09:16 Dose: 40 mg Documented by: Warfarin Sodium (Octtoven) 2.5 mg PO MoTuWeTh@1700 [facility] Warfarin Sodium (Jantoven) 8 mg PO SuFrSa@1700 [facility] Last Admin: 06/30/20 21:17 Dose: 8 mg Documented by: STROKE Vital Signs/Narrative: Vital Signs Temp Pulse Resp BP Pulse Ox 07/01/20 09:08 100.4 F H 41 L 20 H 144/58 H 98 07/01/20 07:27 39 L Medical Necessity - Tobacco Use Smoking Status: Never smoker Tobacco Use: Non-smoker Assessment/Plan All Active Problems (Last Reviewed 06/30/20 @ 17:[address] Sánchez Hawk, DO) Junctional bradycardia (Acute) Hyponatremia with excess extracellular fluid volume (Acute) Acute exacerbation of CHF (congestive heart failure) (Acute) # Junctional bradycardia * Heart rate remains in the 30s and 40s. Atenolol on hold. * TSH slightly elevated at 3.82 and T3 slightly low at 1.7 with normal T4. This indicates hypothyroidism but for her age, will hold off on treatment for now. I am not convinced that this is what is causing the bradycardia. * 2D echo pending. Cardiology consulted. Awaiting recs. * #Acute on chronic heart failure with preserved ejection fraction: * Has a known EF of 60% with no wall motion abnormalities from echo done in December 2018. * BNP was 1358 on admission. On IV Lasix 40 mg twice daily. * Urine output since yesterday is 1.15 L. * And restrictions thousand 500 cc daily. 2D echo pending. * #Paroxysmal A. fib: * Currently bradycardic. * Atenolol on hold. * On Coumadin. * INR today is pending. #CKD stage IV * Creatinine is 1.97 which is around her baseline. Will monitor. * #Hypertension: * Blood pressure has been elevated with BP being 144/58 today. * Atenolol on hold on account of bradycardia. * on telmisartan. add on amlodipine * IV hydralazine prn #History of CLL: * In remission. Follows with oncology. DVT prophylaxis: coumadin Inpatient E&M: [id number] [facility] Hosp L3
[2020-07-01 10:25] LABS: Absolute Lymphocyte Count 4.06 X10^3/uL (0.83-4.51); Absolute Neutrophil Count 2.8 X10^3/uL (2.0-7.7); Basophil# 0.01 X10^3/uL; Basophil% 0.1 % (0-1); Eosinophils% 1.4 % (0-5); Hematocrit 31.9 % (37-47); Hemoglobin 10.1 g/dL (12.0-15.0); Lymphocyte # 4.06 X10^3/ul (4.0); Lymphocyte % 55.1 % (19-41); Mean Corp Hgb Conc 31.7 g/dL (32-36); Mean Corpuscular Hgb 33.6 pg (27.0-32.0); Mean Platelet Vol. 10.4 fl (6.2-12.0); Monocyte# 0.37 X10^3/uL; NRBC Flagged by Analyzer 0 % (0-5); Neutrophil # 2.81 X10^3/uL (2.7-7.7); Neutrophil % 38.1 % (47-70); POSITIVE COUNT YES; Platelet Count 89 K/mm3 (150-450); RBC Distribution Width CV 15.1 % (11.6-14.6); RBC Distribution Width SD 58.7 fl (35.1-43.9); Red Blood Count 3.01 M/mm3 (4.2-5.4); White Blood Count 7.4 K/mm3 (4.4-11.0)
[2020-07-01 10:36] LABS: International Normalized Ratio 3.1; Prothrombin Time (Protime)PT. 31.3 SECONDS (11.7-14.9)
[2020-07-01] MEDS: amLODIPine 10 MG Tablet PO (14:19)
--- NOTE | 2020-07-01 14:52 | PCM.CONS.C ---
Reason for Consult Date of Consultation: 07/01/20 Reason for Consultation: CHF, bradycardia History of Present Illness: ENRICO MEEKS, is a 75 year old white female who presented to the office on 06/30/2020 for a cardiovascular outpatient follow-up with a history of atrial fibrillation with DCCV on 03/02/2019, hypertension, diastolic congestive heart failure, and chronic lymphocytic leukemia. She denied chest, arm, jaw, or neck discomfort. She noted over the last two weeks she has noted increase lower extremity edema and SOB with activity. This appeared to suddenly worsen approximately 1 week ago. She denies SOB at rest. She has tried taking HCTZ in the afternoon with some improvement. She does acknowledge occasional lightheadedness. She denies any zoltan syncopal episode. Patient was found to be volume overloaded and was also bradycardic. She was admitted to the PCU for further management. She has been on IV Lasix. This is caused some improvement in her edema but she continues to remain short of breath. She had a 2D echo done today which showed preserved EF with stage II diastolic dysfunction. Review of systems: All systems reviewed. All else is negative except that in the HPI. Past Medical History Allergies/Adverse Reactions: Allergies erythromycin base [Erythromycin Base] Adverse Reaction (Intermediate, Verified 06/30/20 15:33) Unknown Penicillins Adverse Reaction (Intermediate, Verified 06/30/20 15:33) Rash Home Medications: Ambulatory Orders Medication Instructions Recorded Multivitamins,Therapeutic 1 tab PO DAILY 07/18/14 [Multivitamin] Allopurinol [Zyloprim] 100 mg PO DAILYCM 01/20/17 capsicum (cayenne) 450 mg capsule 450 mg PO DAILY cap 02/04/19 Potassium Chloride [K-Dur] 40 meq PO BID 09/06/19 telmisartan 40 mg tablet 40 mg PO DAILY #1 tab 12/31/19 turmeric 400 mg capsule 800 mg PO DAILY cap 12/31/19 Warfarin Sodium [Coumadin] 8 mg PO SUFRSA 06/30/20 Warfarin [Coumadin (PBKC)] 2.5 mg PO MOTUWETH 06/30/20 calcitriol 0.25 mcg capsule 0.25 mcg PO DAILY 06/30/20 coenzyme Q10 50 mg capsule 50 mg PO DAILY cap 06/30/20 furosemide 40 mg tablet 40 mg PO BID tab 06/30/20 magnesium oxide 500 mg tablet 1,000 mg PO DAILY tab 06/30/20 Past Medical History (Chronic Problems): Chronic Problems (Last Reviewed 06/30/20 @ 17:[address] 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 Sánchez Hawk DO) Mother Hypertension Heart disease Father Diabetes Myocardial infarction Lives: Alone Smoking Status: Never smoker Tobacco Use: Non-smoker Alcohol: None Drugs: None Objective: Vital Signs Temp Pulse Resp BP Pulse Ox 99.2 F H 46 L 18 175/75 H 97 07/01/20 14:06 07/01/20 14:06 07/01/20 14:06 07/01/20 14:06 07/01/20 14:06 Oxygen Flow Rate (L/min) 2 Oxygen Delivery Method Nasal Cannula Weight: 208 lb 5.389 oz Body Mass Index (BMI) 33.6 Intake and Output for Last 24 Hours 06/29/20 06/30/20 07/01/20 23:59 23:59 23:59 Intake Total 240 / 240 Output Total 1750 / 1750 Balance -1510 / -1510 General: Awake, Alert, Oriented x 3 HEENT: Atraumatic Oral: Moist Mucosa Neck: Supple, Positive JVD Lungs: Clear to auscultation Cardiovascular: Irregular Rhythm Abdomen: Soft Extremities: Bilateral Edema +1 Skin: No Rashes Psych/Mental Status: Appropriate 06/30/20 16:45: PT 30.6 H, INR 3.0 06/30/20 16:45: Troponin I < 0.015 07/01/20 05:50: Sodium 140, Potassium 4.6, Chloride 107, Carbon Dioxide 25.0, Anion Gap 8, BUN 44 H, Creatinine 1.97 H, Est GFR (MDRD) Af Amer 32 L, Est GFR (MDRD) Non-Af 26 L, BUN/Creatinine Ratio 22.3 H, Glucose 152 H, Calcium 8.5 07/01/20 08:02: WBC 7.4, RBC 3.01 L, Hgb 10.1 L, Hct 31.9 L, MCV 106.0 H, MCH 33.6 H, MCHC 31.7 L, Plt Count 89 L, MPV 10.4, Immature Gran % (Auto) 0.300, Neut % (Auto) 38.1 L, Lymph % (Auto) 55.1 H, Toole % (Auto) 5.0, Eos % (Auto) 1.4, Baso % (Auto) 0.1, Absolute Neuts (auto) 2.8, Nucleated RBC % 0 07/01/20 08:10: PT 31.3 H, INR 3.1 Rhythm: EKG: ECHO: Stress Test: Cardiac Cath: PCI: CT Surgery: Holter monitor: EPS: PPM: CXR: Chest CT Scan: Assessment/Plan 1. CHF: Patient has preserved EF. She does appear to be in decompensated CHF. Her bradycardia could be contributing to this as well. It does appear that she may end up needing a pacemaker. She is volume overloaded now and cannot lie down flat. We will continue her IV Lasix for now. We will monitor her telemetry overnight. If she continues to remain bradycardic we will hold her Coumadin in anticipation of inpatient pacemaker placement. 2. Atrial fibrillation: Not on any medications for rate control as she is bradycardic. Continue Coumadin for now. We may have to hold it from tomorrow in anticipation of permanent pacemaker placement. 3. Bradycardia: Appears that patient was on 25 mg of metoprolol as an outpatient. This is been on hold and patient continues to remain significantly bradycardic despite being short of breath. She may need permanent pacemaker placement if she continues to remain bradycardic.
--- NOTE | 2020-07-01 14:56 | CM.UR ---
Addendum entered by Ivanna Stock 07/01/20 15:02: Patient did admit to furniture and wall walking at home, during assessment. To go from bed to bathroom--she uses a drawer that she leaves open a little, then the wall and then counter in bathroom. Recommended she use walker at this time however patient refused stating that she feels this is the best way for her. Alka Stock RN, CCM. Original Note: VASQUEZ REY assessment: Met Face to Face with patient for initial transition planning/care coordination assessment. VASQUEZ REY introduced self and role at [facility] to patient, at this time, voices understanding and consents to assessment at this time. No family present at this time. Care providers, pharmacy, and demographics verified at this time. PCP: Fortunato Specialists: Christine cardio Dr. Licona (neph) [facility] Insurance: [employer] A/B, [employer] Prescription Benefit: [employer] MCR D Living Will/HPOA: Patient states she does not have LW/HPOA. She declined any information. LNOK: Jasmine Limon, daughter; Nupur Burkett, daughter and son-in-law Jonathan Burkett Living Arrangements: Patient lives alone on main floor of 2 story home and her daughter, Jasmine Limon, lives on the 2nd floor. States she is essentially independent with everything. States it is harder to get into tub since side is high but her daughters will help her whenever needed. Transportation: Patient does drive or family drives. Denies transportation concerns at this time. DME: Patient has the following DME but does not use: cane and walker. States she is not familiar with DME companies should she need anything. Explained we'll give her a list to look at. HHC/SNF: Denies every been admitted to SNF or having HHC. Patient feels she can go home at this time. Patient is currently wearing o2. States when she was trying to sleep she felt sob so she asked to wear it. Before that she was running mid 90s on room air. CM to follow for any further discharge planning/needs. Advised pt/patient to ask for CM if any further questions/concerns/needs arise, voices understanding. Pt Goal: Home Plan: Home Alka Stock RN, CCM.
[2020-07-01] MEDS: MELATONIN 3 MG TABLET PO (20:59)
[2020-07-01] MEDS: Acetaminophen 325 MG Tablet 650 MG PO (21:00)
[2020-07-02] VITALS (10 sets, daily range): BP systolic 126–154; BP diastolic 49–87; PULSE 33–56; RESP 16–20; TEMP 36.7–37.3; O2SAT 92–95
[2020-07-02] MEDS: Acetaminophen 325 MG Tablet 650 MG PO ×2 (03:29→21:00)
--- NOTE | 2020-07-02 07:39 | PN_ITS ---
Patient Problems: Active and Suspected Problems (Last Reviewed 06/30/20 @ 17:[address] Sánchez Hawk, DO) Junctional bradycardia (Acute) Acute exacerbation of CHF (congestive heart failure) (Acute) Subjective: Patient seen and examined. Heart rate remains low in the 40s. Cardiology reviewed patient and thinks patient may need a pacemaker. Other than persistent bradycardia, she has remained hemodynamically stable. Vitals/I&O's: Vital Signs Temp Pulse Resp BP Pulse Ox 98.1 F 35 L 18 126/87 H 93 07/02/20 03:05 07/02/20 07:00 07/02/20 03:05 07/02/20 03:05 07/02/20 03:15 Oxygen Flow Rate (L/min) 2 Oxygen Delivery Method Room Air Weight: 205 lb 14.588 oz Body Mass Index (BMI) 33.6 Intake and Output for Last 24 Hours 06/30/20 07/01/20 07/02/20 23:59 23:59 23:59 Intake Total 730 / 730 120 / 120 Output Total 2800 / 2800 50 / 50 Balance -2069 / -2069 70 / 70 General: Alert, Oriented x3, Cooperative, No apparent distress HEENT: Atraumatic, PERRLA, EOMI, Normocephalic Oral: Dry Mucosa Neck: Supple, No JVD, Negative Carotid Bruits, Negative Hepatojugular Reflux, No Nodes Lungs: Clear to auscultation, Normal air movement, No rhonchi, No wheeze Cardiovascular: Normal S1, Normal S2, No murmurs, Bradycardic Abdomen: Bowel Sounds Present, Soft, Non Tender, Non-Distended, No Hepato- splenomegaly Extremities: No clubbing, No cyanosis, No edema, Capillary Refill Less than 3 Seconds Skin: No rashes, No breakdown Musculoskeletal: No Tenderness to Palpation of Joints or Extremities Lymphatic: No Cervical, Supraclavicular, or Inguinal Adenopathy Neurological: Cranial nerves II-XII grossly intact, Neuro grossly intact, Motor Exam 5/5 strength throughout Psych/Mental Status: Normal Affect, Appropriate, Alert and oriented to time, place, person, mood and affect Laboratory Results 07/01/20 08:02: Free T4 1.20, Free T3 pg/dL 1.7 L 07/01/20 08:02: WBC 7.4, RBC 3.01 L, Hgb 10.1 L, Hct 31.9 L, MCV 106.0 H, MCH 33.6 H, MCHC 31.7 L, RDW Std Deviation 58.7 H, RDW Coeff of Jose 15.1 H, Plt Count 89 L, MPV 10.4, Immature Gran % (Auto) 0.300, Neut % (Auto) 38.1 L, Lymph % (Auto) 55.1 H, [place] % (Auto) 5.0, Eos % (Auto) 1.4, Baso % (Auto) 0.1, Absolute Neuts (auto) 2.8, Absolute Lymphs (auto) 4.06, Nucleated RBC % 0 07/01/20 08:10: PT 31.3 H, INR 3.1 Current Medications Acetaminophen (Tylenol) 650 mg PO Q6H PRN PRN PRN Reason: Pain Score 1-10/Temp > 100.7 F Last Admin: 07/02/20 03:29 Dose: 650 mg Documented by: [facility] Last Admin: 07/01/20 09:16 Dose: 100 mg Documented by: Amlodipine Besylate (Norvasc) 10 mg PO DAILY [facility] Last Admin: 07/01/20 14:19 Dose: 10 mg Documented by: Furosemide (Lasix) 40 mg IV BID@1000,1800 [facility] Last Admin: 07/01/20 17:59 Dose: 40 mg Documented by: Guaifenesin (Mucinex) 1,200 mg PO BID [facility] Hydralazine HCl (Apresoline Iv) 10 mg IV Q6H PRN PRN PRN Reason: BLOOD PRESSURE ELEVATION Magnesium Chloride (Mag64) 128 mg PO DAILY [facility] Last Admin: 07/01/20 09:16 Dose: 128 mg Documented by: Multivitamins (Multivitamin) 1 tablet PO DAILY@0800 [facility] Last Admin: 07/01/20 09:16 Dose: 1 tablet Documented by: Nitroglycerin (Nitrostat) 0.4 mg SUBLINGUAL Q5M PRN PRN Reason: CARDIAC/CHEST PAIN Ondansetron HCl (Zofran) 4 mg IV Q8H PRN PRN PRN Reason: NAUSEA/VOMITING Last Admin: 07/01/20 14:19 Dose: 4 mg Documented by: Potassium Chloride (K-Dur) 40 meq PO BIDCM [facility] Last Admin: 07/01/20 17:59 Dose: 40 meq Documented by: Sodium Chloride () 10 - 40 ml IV UD PRN PRN Reason: SALINE FLUSH Last Admin: 07/01/20 18:09 Dose: 10 ml Documented by: Telmisartan (Telmisartan) 40 mg PO DAILY [facility] Last Admin: 07/01/20 09:16 Dose: 40 mg Documented by: Warfarin Sodium (Jantoven) 2.5 mg PO MoTuWeTh@1700 [facility] Warfarin Sodium (Jantoven) 8 mg PO SuFrSa@1700 [facility] Last Admin: 07/01/20 17:59 Dose: 8 mg Documented by: STROKE Vital Signs/Narrative: Vital Signs Pulse 07/02/20 07:00 35 L Medical Necessity - Tobacco Use Smoking Status: Never smoker Tobacco Use: Non-smoker Assessment/Plan All Active Problems (Last Reviewed 06/30/20 @ 17:[address] Sánchez Hawk, DO) Junctional bradycardia (Acute) Hyponatremia with excess extracellular fluid volume (Acute) Acute exacerbation of CHF (congestive heart failure) (Acute) # Junctional bradycardia * Heart rate remains in the 30s and 40s. Atenolol on hold. * 2D echo showed EF of 65% with stage II diastolic dysfunction and severely enlarged left atrium and normal right atrium. Pulmonary artery systolic pressure was 45 mmHg. * Cardiology on board. Thinks patient may benefit from pacemaker. #Acute on chronic heart failure with preserved ejection fraction: * Has a known EF of 60% with no wall motion abnormalities from echo done in December 2018. * BNP was 1358 on admission. On IV Lasix 40 mg twice daily. * And cumulative negative balance by 2 L since admission. * #Paroxysmal A. fib: * Currently bradycardic. * Atenolol on hold. * On Coumadin. Hold Coumadin in preparation for probable pacemaker placement. * #CKD stage IV * stable * #Hypertension: * Blood pressure has been elevated with BP being 144/58 today. * Atenolol on hold on account of bradycardia. * on telmisartan. add on amlodipine * IV hydralazine prn #History of CLL: * In remission. Follows with oncology. DVT prophylaxis: coumadin held as above. Inpatient E&M: 47684 Subs Hosp L2
[2020-07-02] MEDS: Multivitamins,Therapeutic Tablet 1 TABLET PO (08:10)
[2020-07-02] MEDS: Allopurinol 100 MG Tablet PO (08:10)
[2020-07-02] MEDS: Ondansetron 4 MG/2 ML Vial IV ×2 (08:10→16:12)
[2020-07-02] MEDS: 0.9% Saline Lock 10 ML Syringe IV ×4 (08:11→17:10)
[2020-07-02 08:22] LABS: Absolute Neutrophil Count 3.2 X10^3/uL (2.0-7.7); Basophil# 0.01 X10^3/uL; Basophil% 0.1 % (0-1); Eosinophil# 0.14 X10^3/uL; Eosinophils% 1.6 % (0-5); Hematocrit 31.8 % (37-47); Hemoglobin 9.8 g/dL (12.0-15.0); Mean Corp Hgb Conc 30.8 g/dL (32-36); Mean Corpuscular Hgb 33.1 pg (27.0-32.0); Mean Corpuscular Volume 107.4 fL (81-99); Mean Platelet Vol. 9.8 fl (6.2-12.0); Monocyte# 0.46 X10^3/uL; Monocyte% 5.1 % (0-10); NRBC Flagged by Analyzer 0 % (0-5); Neutrophil # 3.21 X10^3/uL (2.7-7.7); POSITIVE DIFFERENTIAL YES; Platelet Count 104 K/mm3 (150-450); RBC Distribution Width CV 15.5 % (11.6-14.6); RBC Distribution Width SD 60.6 fl (35.1-43.9); Red Blood Count 2.96 M/mm3 (4.2-5.4); White Blood Count 8.9 K/mm3 (4.4-11.0)
[2020-07-02 08:23] LABS: Differential Indicated SCAN CRITERIA MET
[2020-07-02 08:35] LABS: Anion Gap 4 (5-15); BUN 39 mg/dL (7-18); BUN/Creat Ratio 19.6 RATIO (10-20); Calcium,Total 8.8 mg/dL (8.5-10.1); Chloride 106 mmol/L (98-107); Creatinine, Serum 1.99 mg/dL (0.55-1.02); EST Glomerular Filtration Rate 26 mL/min (>60); Est Glom Filt Rate - Afr Amer 31 mL/min (>60); Estimated Creatinine Clearance 23.02 ml/min; Glucose 124 mg/dL (74-106); Potassium 4.7 mmol/L (3.5-5.1); Sodium Level 141 mmol/L (136-145)
[2020-07-02 08:55] LABS: Atypical Lymphocyte 1+ %
[2020-07-02 08:56] LABS: Hypochromasia 1+; Macrocytosis 1+; Platelet Estimate SLT DEC (ADEQ)
[2020-07-02] MEDS: Magnesium Chloride 64 MG Delay Rel.Tablet 128 MG PO (09:48)
[2020-07-02] MEDS: guaiFENesin 1,200 MG Tablet 1200 MG PO (09:48)
[2020-07-02] MEDS: amLODIPine 10 MG Tablet PO (09:48)
[2020-07-02] MEDS: Furosemide 40 MG/4 ML Vial IV ×2 (09:51→17:09)
[2020-07-02] MEDS: TELMISARTAN 40 MG TABLET PO (09:55)
--- NOTE | 2020-07-02 15:35 | PCM.PN.CARD ---
Subjectve: Shortness of breath has improved. Objective: Vital Signs Temp Pulse Resp BP Pulse Ox 98.8 F 41 L 16 150/49 H 92 07/02/20 09:05 07/02/20 11:00 07/02/20 09:05 07/02/20 09:05 07/02/20 09:05 Oxygen Flow Rate (L/min) 2 Oxygen Delivery Method Room Air Weight: 205 lb 14.588 oz Body Mass Index (BMI) 33.6 Intake and Output for Last 24 Hours 06/30/20 07/01/20 07/02/20 23:59 23:59 23:59 Intake Total 730 / 730 480 / 480 Output Total 2800 / 2800 700 / 700 Balance -2069 / -2069 - / - General: Awake, Alert, Oriented x 3 Oral: Moist Mucosa Neck: Supple Cardiovascular: Normal S1, Normal S2 Abdomen: Soft Extremities: Bilateral Edema +1 Skin: No Rashes Psych/Mental Status: Appropriate 07/02/20 07:50: WBC 8.9, RBC 2.96 L, Hgb 9.8 L, Hct 31.8 L, MCV 107.4 H, MCH 33.1 H, MCHC 30.8 L, Plt Count 104 L, MPV 9.8, Immature Gran % (Auto) 0.200, Neut % (Auto) 36.0 L, Lymph % (Auto) 57.0 H, [place] % (Auto) 5.1, Eos % (Auto) 1.6, Baso % (Auto) 0.1, Absolute Neuts (auto) 3.2, Nucleated RBC % 0 07/02/20 07:50: Sodium 141, Potassium 4.7, Chloride 106, Carbon Dioxide 31.0, Anion Gap 4 L, BUN 39 H, Creatinine 1.99 H, Est GFR (MDRD) Af Amer 31 L, Est GFR (MDRD) Non-Af 26 L, BUN/Creatinine Ratio 19.6, Glucose 124 H, Calcium 8.8 Rhythm: EKG: ECHO: Stress Test: Cardiac Cath: PCI: CT Surgery: Holter monitor: EPS: PPM: CXR: Chest CT Scan: Medical Necessity - Tobacco Use Smoking Status: Never smoker Tobacco Use: Non-smoker Assessment/Plan 1. CHF: Patient has preserved EF. She does appear to be in decompensated CHF. Her bradycardia could be contributing to this as well. Her last dose of BB was on Friday. We will continue to monitor this on telemetry. However at this point it does look like it is more likely that she will end up on a permanent pacemaker because of bradycardia that is causing decompensated CHF. It is reasonable to hold her Coumadin from today in anticipation of possible permanent pacemaker placement during this admission. Continue IV Lasix at this time. 2. Atrial fibrillation: Not on any medications for rate control as she is bradycardic. Continue Coumadin for now. We may have to hold it from tomorrow in anticipation of permanent pacemaker placement. 3. Bradycardia: Appears that patient was on 25 mg of metoprolol as an outpatient. This is been on hold and patient continues to remain significantly bradycardic despite being short of breath. She may need permanent pacemaker placement if she continues to remain bradycardic.
[2020-07-02] MEDS: MELATONIN 3 MG TABLET PO (21:00)
[2020-07-03] VITALS (9 sets, daily range): BP systolic 136–154; BP diastolic 55–75; PULSE 38–56; RESP 16–18; TEMP 36.8–37.7; O2SAT 92–99
[2020-07-03] MEDS: Acetaminophen 325 MG Tablet 650 MG PO ×2 (03:24→21:17)
--- NOTE | 2020-07-03 07:21 | PCM.PN.HOSP ---
Patient Problems: Active and Suspected Problems (Last Reviewed 06/30/20 @ 17:[address] Sánchez Hawk, DO) Junctional bradycardia (Acute) Acute exacerbation of CHF (congestive heart failure) (Acute) Subjective: Patient seen and examined. No active events overnight. She has no complaints. Review of signs otherwise negative. Still remains bradycardic. Vitals/I&O's: Vital Signs Temp Pulse Resp BP Pulse Ox 98.6 F 43 L 16 136/69 H 92 07/03/20 03:19 07/03/20 03:19 07/03/20 03:19 07/03/20 03:19 07/03/20 03:19 Oxygen Flow Rate (L/min) 2 Oxygen Delivery Method Room Air Weight: 206 lb 5.643 oz Body Mass Index (BMI) 33.6 Intake and Output for Last 24 Hours 07/01/20 07/02/20 07/03/20 23:59 23:59 23:59 Intake Total 730 / 730 920 / 920 200 / 200 Output Total 2800 / 2800 1800 / 1800 320 / 320 Balance -2070 / -2070 -880 / -880 -120 / -120 General: Alert, Oriented x3, Cooperative, No apparent distress HEENT: Atraumatic, PERRLA, EOMI, Normocephalic Oral: Dry Mucosa Neck: Supple, No JVD, Negative Carotid Bruits, Negative Hepatojugular Reflux, No Nodes Lungs: Clear to auscultation, Normal air movement, No rhonchi, No wheeze Cardiovascular: Normal S1, Normal S2, No murmurs, Bradycardic Abdomen: Bowel Sounds Present, Soft, Non Tender, Non-Distended, No Hepato-splenomegaly Extremities: No clubbing, No cyanosis, No edema, Capillary Refill Less than 3 Seconds Skin: No rashes, No breakdown Musculoskeletal: No Tenderness to Palpation of Joints or Extremities Lymphatic: No Cervical, Supraclavicular, or Inguinal Adenopathy Neurological: Cranial nerves II-XII grossly intact, Neuro grossly intact, Motor Exam 5/5 strength throughout Psych/Mental Status: Normal Affect, Appropriate, Alert and oriented to time, place, person, mood and affect Laboratory Results 07/02/20 07:50: WBC 8.9, RBC 2.96 L, Hgb 9.8 L, Hct 31.8 L, MCV 107.4 H, MCH 33.1 H, MCHC 30.8 L, RDW Std Deviation 60.6 H, RDW Coeff of Jose 15.5 H, Plt Count 104 L, MPV 9.8, Immature Gran % (Auto) 0.200, Neut % (Auto) 36.0 L, Lymph % (Auto) 57.0 H, Granite % (Auto) 5.1, Eos % (Auto) 1.6, Baso % (Auto) 0.1, Absolute Neuts (auto) 3.2, Absolute Lymphs (auto) 5.10 H, Nucleated RBC % 0, Atypical Lymphocytes 1+, Platelet Estimate SLT DEC, Hypochromasia 1+, Macrocytosis 1+ 07/02/20 07:50: Sodium 141, Potassium 4.7, Chloride 106, Carbon Dioxide 31.0, Anion Gap 4 L, BUN 39 H, Creatinine 1.99 H, Estim Creat Clear Calc 23.02, Est GFR (MDRD) Af Amer 31 L, Est GFR (MDRD) Non-Af 26 L, BUN/Creatinine Ratio 19.6, Glucose 124 H, Calcium 8.8 Current Medications Acetaminophen (Tylenol) 650 mg PO Q6H PRN PRN PRN Reason: Pain Score 1-10/Temp > 100.7 F Last Admin: 07/03/20 03:24 Dose: 650 mg Documented by: [facility]) [facility] Last Admin: 07/02/20 08:10 Dose: 100 mg Documented by: Amlodipine Besylate (Norvasc) 10 mg PO DAILY [facility] Last Admin: 07/02/20 09:48 Dose: 10 mg Documented by: Furosemide (Lasix) 40 mg IV BID@1000,1800 [facility] Last Admin: 07/02/20 17:09 Dose: 40 mg Documented by: Guaifenesin (Mucinex) 1,200 mg PO BID [facility] Last Admin: 07/02/20 20:04 Dose: Not Given Documented by: Hydralazine HCl (Apresoline Iv) 10 mg IV Q6H PRN PRN PRN Reason: BLOOD PRESSURE ELEVATION Magnesium Chloride (Mag64) 128 mg PO DAILY [facility] Last Admin: 07/02/20 09:48 Dose: 128 mg Documented by: Melatonin (Melatonin) 3 mg PO QHS [facility] Last Admin: 07/02/20 21:00 Dose: 3 mg Documented by: Multivitamins (Multivitamin) 1 tablet PO DAILY@0800 [facility] Last Admin: 07/02/20 08:10 Dose: 1 tablet Documented by: Nitroglycerin (Nitrostat) 0.4 mg SUBLINGUAL Q5M PRN PRN Reason: CARDIAC/CHEST PAIN Ondansetron HCl (Zofran) 4 mg IV Q8H PRN PRN PRN Reason: NAUSEA/VOMITING Last Admin: 07/02/20 16:12 Dose: 4 mg Documented by: Potassium Chloride (K-Dur) 40 meq PO BIDCM [facility] Last Admin: 07/02/20 16:16 Dose: 40 meq Documented by: Sodium Chloride () 10 - 40 ml IV UD PRN PRN Reason: SALINE FLUSH Last Admin: 07/02/20 17:10 Dose: 10 ml Documented by: Telmisartan (Telmisartan) 40 mg PO DAILY [facility] Last Admin: 07/02/20 09:55 Dose: 40 mg Documented by: Medical Necessity - Tobacco Use Smoking Status: Never smoker Tobacco Use: Non-smoker Assessment/Plan All Active Problems (Last Reviewed 06/30/20 @ 17:[address] Sánchez Hawk, DO) Junctional bradycardia (Acute) Hyponatremia with excess extracellular fluid volume (Acute) Acute exacerbation of CHF (congestive heart failure) (Acute) # Junctional bradycardia still remains bradycardic, atenolol still on h old 2D echo showed EF of 65% with stage II diastolic dysfunction and severely enlarged left atrium and normal right atrium. Pulmonary artery systolic pressure was 45 mmHg. Cardiology on board. Awaiting pacemaker placement. #Acute on chronic heart failure with preserved ejection fraction: Has a known EF of 60% with no wall motion abnormalities from echo done in December 2018. BNP was 1358 on admission. On IV Lasix 40 mg twice daily. In cumulative negative balance by 3L since admission. will switch to PO lasix today #Paroxysmal A. fib: Currently bradycardic. Atenolol on hold. coumadin on hold o./a of pacemaker placement INR is 3.3 #CKD stage IV stable #Hypertension: Atenolol on hold on account of bradycardia. on telmisartan. add on amlodipine IV hydralazine prn #History of CLL: In remission. Follows with oncology. DVT prophylaxis: coumadin held as above. Inpatient E&M: 43722 Subs Hosp L2
[2020-07-03 07:52] LABS: Absolute Lymphocyte Count 4.92 X10^3/uL (0.83-4.51); Absolute Neutrophil Count 2.1 X10^3/uL (2.0-7.7); Basophil# 0.02 X10^3/uL; Basophil% 0.3 % (0-1); Eosinophil# 0.15 X10^3/uL; Eosinophils% 1.9 % (0-5); Hematocrit 31.3 % (37-47); Hemoglobin 9.9 g/dL (12.0-15.0); Lymphocyte # 4.92 X10^3/ul (4.0); Lymphocyte % 63.4 % (19-41); Mean Corp Hgb Conc 31.6 g/dL (32-36); Mean Corpuscular Hgb 33.7 pg (27.0-32.0); Mean Corpuscular Volume 106.5 fL (81-99); Mean Platelet Vol. 9.3 fl (6.2-12.0); Monocyte# 0.56 X10^3/uL; Monocyte% 7.2 % (0-10); NRBC Flagged by Analyzer 0 % (0-5); Neutrophil # 2.09 X10^3/uL (2.7-7.7); Neutrophil % 26.9 % (47-70); Platelet Count 111 K/mm3 (150-450); RBC Distribution Width CV 15.4 % (11.6-14.6); RBC Distribution Width SD 60.3 fl (35.1-43.9); Red Blood Count 2.94 M/mm3 (4.2-5.4); White Blood Count 7.8 K/mm3 (4.4-11.0)
[2020-07-03 08:06] LABS: Anion Gap 3 (5-15); BUN 39 mg/dL (7-18); BUN/Creat Ratio 19.4 RATIO (10-20); Calcium,Total 8.8 mg/dL (8.5-10.1); Chloride 107 mmol/L (98-107); Creatinine, Serum 2.01 mg/dL (0.55-1.02); EST Glomerular Filtration Rate 26 mL/min (>60); Est Glom Filt Rate - Afr Amer 31 mL/min (>60); Estimated Creatinine Clearance 22.79 ml/min; Glucose 127 mg/dL (74-106); Potassium 4.9 mmol/L (3.5-5.1); Sodium Level 141 mmol/L (136-145)
[2020-07-03] MEDS: Ondansetron 4 MG/2 ML Vial IV ×2 (08:24→16:38)
[2020-07-03] MEDS: Multivitamins,Therapeutic Tablet 1 TABLET PO (08:24)
[2020-07-03] MEDS: 0.9% Saline Lock 10 ML Syringe IV ×3 (08:24→17:18)
[2020-07-03] MEDS: amLODIPine 10 MG Tablet PO (08:25)
[2020-07-03] MEDS: Magnesium Chloride 64 MG Delay Rel.Tablet 128 MG PO (08:25)
[2020-07-03] MEDS: Allopurinol 100 MG Tablet PO (08:25)
[2020-07-03] MEDS: Furosemide 40 MG/4 ML Vial IV ×2 (08:25→17:18)
[2020-07-03] MEDS: guaiFENesin 1,200 MG Tablet 1200 MG PO (08:25)
[2020-07-03] MEDS: TELMISARTAN 40 MG TABLET PO (08:26)
[2020-07-03 08:28] LABS: International Normalized Ratio 3.3
--- NOTE | 2020-07-03 09:28 | PN.CARD_ITS ---
Subjectve: Patient seen and evaluated. Appears to be stable but still bradycardic Objective: Vital Signs Temp Pulse Resp BP Pulse Ox 98.6 F 38 L 16 136/69 H 92 07/03/20 03:19 07/03/20 07:18 07/03/20 03:19 07/03/20 03:19 07/03/20 03:19 Oxygen Flow Rate (L/min) 2 Oxygen Delivery Method Room Air Weight: 206 lb 5.643 oz Body Mass Index (BMI) 33.6 Intake and Output for Last 24 Hours 07/01/20 07/02/20 07/03/20 23:59 23:59 23:59 Intake Total 730 / 730 920 / 920 200 / 200 Output Total 2800 / 2800 1800 / 1800 320 / 320 Balance -2070 / -2070 -880 / -880 -120 / -120 General: Awake, Alert, Oriented x 3 HEENT: PERRL, EOMI, Sclera Non Icteric Neck: Supple, Good ROM, No Lymph Node Enlargement Lungs: Clear to auscultation Cardiovascular: Regular Rhythm, Normal S1, Normal S2, No Murmurs, No Rubs, No Gallops Vascular: No Carotid Bruits, Normal Femoral Pulses, Normal Radial Pulses, Normal Dorsalis Pedal Pulse, Normal Posterior Tibial Pulses Abdomen: Bowel Sounds Present, Soft, Non Tender, No HSM, No Organomegaly Extremities: No Cyanosis, No Clubbing, No edema Musculoskeletal: No Erythema Skin: No Rashes Lymphatic: No Lymph Node Enlargement Neurological: No Focal Motor or Sensory Deficit Psych/Mental Status: Appropriate 07/03/20 07:44: WBC 7.8, RBC 2.94 L, Hgb 9.9 L, Hct 31.3 L, MCV 106.5 H, MCH 33.7 H, MCHC 31.6 L, Plt Count 111 L, MPV 9.3, Immature Gran % (Auto) 0.300, Neut % (Auto) 26.9 L, Lymph % (Auto) 63.4 H, [place] % (Auto) 7.2, Eos % (Auto) 1.9, Baso % (Auto) 0.3, Absolute Neuts (auto) 2.1, Nucleated RBC % 0 07/03/20 07:44: Sodium 141, Potassium 4.9, Chloride 107, Carbon Dioxide 31.0, Anion Gap 3 L, BUN 39 H, Creatinine 2.01 H, Est GFR (MDRD) Af Amer 31 L, Est GFR (MDRD) Non-Af 26 L, BUN/Creatinine Ratio 19.4, Glucose 127 H, Calcium 8.8 07/03/20 07:44: PT 33.0 H, INR 3.3 Rhythm: EKG: ECHO: Stress Test: Cardiac Cath: PCI: CT Surgery: Holter monitor: EPS: PPM: CXR: Chest CT Scan: Medical Necessity - Tobacco Use Smoking Status: Never smoker Tobacco Use: Non-smoker Assessment/Plan # Junctional bradycardia * still remains bradycardic, atenolol still on hold * 2D echo showed EF of 65% with stage II diastolic dysfunction and severely enlarged left atrium and normal right atrium. Pulmonary artery systolic pressure was 45 mmHg. * Anticoagulation with INR still greater than 3. We will keep this on hold and consider permanent pacemaker when INR is less than 1.8. #Acute on chronic heart failure with preserved ejection fraction: * Has a known EF of 60% with no wall motion abnormalities from echo done in December 2018. * BNP was 1358 on admission. On IV Lasix 40 mg twice daily. * In cumulative negative balance by 3L since admission. * will switch to PO lasix today * #Paroxysmal A. fib: * Currently bradycardic. * Atenolol on hold. * #CKD stage IV * stable * #Hypertension: * Atenolol on hold on account of bradycardia. * on telmisartan. add on amlodipine * IV hydralazine prn #History of CLL: * In remission. Follows with oncology. The issue of permanent pacemaker was discussed with her the risk benefits alternatives she understands and agrees to proceed. She does also understand that this may not necessarily be carried out over the next 24 hours due to her elevated INR.
[2020-07-03] MEDS: Pramipexole Di-HCl 0.5 MG Tablet PO ×2 (16:15→21:17)
[2020-07-03] MEDS: MELATONIN 3 MG TABLET PO (21:17)
[2020-07-04] VITALS (12 sets, daily range): BP systolic 157–181; BP diastolic 59–78; PULSE 40–52; RESP 15–18; TEMP 36.6–36.8; O2SAT 94–98
[2020-07-04] MEDS: Pramipexole Di-HCl 0.5 MG Tablet PO ×3 (05:06→20:41)
[2020-07-04 06:35] LABS: Absolute Lymphocyte Count 6.36 X10^3/uL (0.83-4.51); Absolute Neutrophil Count 2.3 X10^3/uL (2.0-7.7); Basophil# 0.02 X10^3/uL; Basophil% 0.2 % (0-1); Eosinophil# 0.14 X10^3/uL; Eosinophils% 1.5 % (0-5); Hematocrit 31.8 % (37-47); Hemoglobin 10.2 g/dL (12.0-15.0); Lymphocyte # 6.36 X10^3/ul (4.0); Mean Corp Hgb Conc 32.1 g/dL (32-36); Mean Corpuscular Hgb 33.9 pg (27.0-32.0); Mean Corpuscular Volume 105.6 fL (81-99); Mean Platelet Vol. 9.6 fl (6.2-12.0); Monocyte# 0.36 X10^3/uL; Monocyte% 3.9 % (0-10); NRBC Flagged by Analyzer 0 % (0-5); Neutrophil # 2.31 X10^3/uL (2.7-7.7); Neutrophil % 25.1 % (47-70); POSITIVE DIFFERENTIAL YES; Platelet Count 117 K/mm3 (150-450); RBC Distribution Width CV 15.1 % (11.6-14.6); RBC Distribution Width SD 57.8 fl (35.1-43.9); Red Blood Count 3.01 M/mm3 (4.2-5.4); White Blood Count 9.2 K/mm3 (4.4-11.0)
[2020-07-04 06:41] LABS: Differential Indicated SCAN CRITERIA MET
[2020-07-04 06:45] LABS: International Normalized Ratio 2.4; Prothrombin Time (Protime)PT. 25.3 SECONDS (11.7-14.9)
[2020-07-04 06:56] LABS: Differential Comment SCANNED
[2020-07-04 06:58] LABS: Anion Gap 4 (5-15); BUN 37 mg/dL (7-18); Calcium,Total 8.6 mg/dL (8.5-10.1); Chloride 104 mmol/L (98-107); Creatinine, Serum 1.76 mg/dL (0.55-1.02); EST Glomerular Filtration Rate 30 mL/min (>60); Est Glom Filt Rate - Afr Amer 36 mL/min (>60); Estimated Creatinine Clearance 26.03 ml/min; Glucose 138 mg/dL (74-106); Potassium 5.1 mmol/L (3.5-5.1); Sodium Level 137 mmol/L (136-145)
[2020-07-04] MEDS: 0.9% Saline Lock 10 ML Syringe IV (07:38)
[2020-07-04] MEDS: Ondansetron 4 MG/2 ML Vial IV (07:38)
--- NOTE | 2020-07-04 08:00 | PN.CARD_ITS ---
Subjectve: Patient seen and evaluated. Appears to be breathing better this morning. Heart rate is improved. Objective: Vital Signs Temp Pulse Resp BP Pulse Ox 97.8 F 40 L 18 158/70 H 95 07/04/20 03:00 07/04/20 06:37 07/04/20 03:00 07/04/20 03:00 07/04/20 07:15 Oxygen Flow Rate (L/min) 2 Oxygen Delivery Method Nasal Cannula Weight: 203 lb 11.314 oz Body Mass Index (BMI) 33.6 Intake and Output for Last 24 Hours 07/02/20 07/03/20 07/04/20 23:59 23:59 23:59 Intake Total 920 / 920 920 / 920 120 / 120 Output Total 1800 / 1800 1820 / 1820 150 / 150 Balance -880 / -880 -900 / -900 -30 / -30 General: Awake, Alert, Oriented x 3 HEENT: PERRL, EOMI, Sclera Non Icteric Neck: Supple, Good ROM, No Lymph Node Enlargement Lungs: Clear to auscultation Cardiovascular: Irregular Rhythm, Normal S1, Normal S2, No Murmurs, No Rubs, No Gallops Vascular: No Carotid Bruits, Normal Femoral Pulses, Normal Radial Pulses, Normal Dorsalis Pedal Pulse, Normal Posterior Tibial Pulses Abdomen: Bowel Sounds Present, Soft, Non Tender, No HSM, No Organomegaly Extremities: No Cyanosis, No Clubbing, No edema Musculoskeletal: No Erythema Lymphatic: No Lymph Node Enlargement Neurological: No Focal Motor or Sensory Deficit Psych/Mental Status: Appropriate 07/03/20 07:44: Sodium 141, Potassium 4.9, Chloride 107, Carbon Dioxide 31.0, Anion Gap 3 L, BUN 39 H, Creatinine 2.01 H, Est GFR (MDRD) Af Amer 31 L, Est GFR (MDRD) Non-Af 26 L, BUN/Creatinine Ratio 19.4, Glucose 127 H, Calcium 8.8 07/03/20 07:44: PT 33.0 H, INR 3.3 07/04/20 06:15: WBC 9.2, RBC 3.01 L, Hgb 10.2 L, Hct 31.8 L, MCV 105.6 H, MCH 33.9 H, MCHC 32.1, Plt Count 117 L, MPV 9.6, Immature Gran % (Auto) 0.300, Neut % (Auto) 25.1 L, Lymph % (Auto) 69.0 H, [place] % (Auto) 3.9, Eos % (Auto) 1.5, Baso % (Auto) 0.2, Absolute Neuts (auto) 2.3, Nucleated RBC % 0 07/04/20 06:15: Sodium 137, Potassium 5.1, Chloride 104, Carbon Dioxide 29.0, Anion Gap 4 L, BUN 37 H, Creatinine 1.76 H, Est GFR (MDRD) Af Amer 36 L, Est GFR (MDRD) Non-Af 30 L, BUN/Creatinine Ratio 21.0 H, Glucose 138 H, Calcium 8.6 07/04/20 06:15: PT 25.3 H, INR 2.4 Rhythm: EKG: ECHO: Stress Test: Cardiac Cath: PCI: CT Surgery: Holter monitor: EPS: PPM: CXR: Chest CT Scan: Medical Necessity - Tobacco Use Smoking Status: Never smoker Tobacco Use: Non-smoker Assessment/Plan # Junctional bradycardia * still remains bradycardic, atenolol still on hold * 2D echo showed EF of 65% with stage II diastolic dysfunction and severely enlarged left atrium and normal right atrium. Pulmonary artery systolic pressure was 45 mmHg. * Anticoagulation with INR still greater than 2. We will keep this on hold and consider permanent pacemaker when INR is less than 1.8. #Acute on chronic heart failure with preserved ejection fraction: * Has a known EF of 60% with no wall motion abnormalities from echo done in December 2018. * BNP was 1358 on admission. On IV Lasix 40 mg twice daily. * In cumulative negative balance by 3L since admission. * will switch to PO lasix today * #Paroxysmal A. fib: * Currently bradycardic. * Atenolol on hold. * #CKD stage IV * stable * #Hypertension: * Atenolol on hold on account of bradycardia. * on telmisartan. add on amlodipine * IV hydralazine prn #History of CLL: * In remission. Follows with oncology. The issue of permanent pacemaker was discussed with her the risk benefits alternatives she understands and agrees to proceed. She does also understand that this may not necessarily be carried out over the next 24 hours due to her elevated INR. She has also been given the option of a Micra permanent pacemaker which will be placed as an outpatient next week. I think that she is stable enough if she needed to be discharged to wait till then especially as she is off the beta-josh.
[2020-07-04] MEDS: guaiFENesin 1,200 MG Tablet 1200 MG PO (09:30)
[2020-07-04] MEDS: Magnesium Chloride 64 MG Delay Rel.Tablet 128 MG PO (09:31)
[2020-07-04] MEDS: Allopurinol 100 MG Tablet PO (09:31)
[2020-07-04] MEDS: Multivitamins,Therapeutic Tablet 1 TABLET PO (09:31)
[2020-07-04] MEDS: amLODIPine 10 MG Tablet PO (09:32)
[2020-07-04] MEDS: TELMISARTAN 40 MG TABLET PO (09:33)
--- NOTE | 2020-07-04 11:20 | PN_ITS ---
Patient Problems: Active and Suspected Problems (Last Updated 07/04/20 @ 10:42 by Becca Beltrán) Junctional bradycardia (Acute) Acute exacerbation of CHF (congestive heart failure) (Acute) Subjective: Patient seen and examined. She feels very short of breath today. She has remained bradycardic. She remains on 2 L of oxygen. Review of systems otherwise negative. Vitals/I&O's: Vital Signs Temp Pulse Resp BP Pulse Ox 97.8 F 47 L 17 181/78 H 98 07/04/20 09:24 07/04/20 09:24 07/04/20 09:24 07/04/20 09:24 07/04/20 09:24 Oxygen Flow Rate (L/min) 2 Oxygen Delivery Method Nasal Cannula Weight: 203 lb 11.314 oz Body Mass Index (BMI) 33.6 Intake and Output for Last 24 Hours 07/02/20 07/03/20 07/04/20 23:59 23:59 23:59 Intake Total 920 / 920 920 / 920 120 / 120 Output Total 1800 / 1800 1820 / 1820 150 / 150 Balance -880 / -880 -900 / -900 -30 / -30 General: Alert, Oriented x3, Cooperative, No apparent distress HEENT: Atraumatic, PERRLA, EOMI, Normocephalic Oral: Dry Mucosa Neck: Supple, No JVD, Negative Carotid Bruits, Negative Hepatojugular Reflux, No Nodes Lungs: Clear to auscultation, Normal air movement, No rhonchi, No wheeze; on 2L of oxygen. Cardiovascular: Normal S1, Normal S2, No murmurs, Bradycardic Abdomen: Bowel Sounds Present, Soft, Non Tender, Non-Distended, No Hepato- splenomegaly Extremities: No clubbing, No cyanosis, No edema, Capillary Refill Less than 3 Seconds Skin: No rashes, No breakdown Musculoskeletal: No Tenderness to Palpation of Joints or Extremities Lymphatic: No Cervical, Supraclavicular, or Inguinal Adenopathy Neurological: Cranial nerves II-XII grossly intact, Neuro grossly intact, Motor Exam 5/5 strength throughout Psych/Mental Status: Normal Affect, Appropriate, Alert and oriented to time, place, person, mood and affect Laboratory Results 07/04/20 06:15: WBC 9.2, RBC 3.01 L, Hgb 10.2 L, Hct 31.8 L, MCV 105.6 H, MCH 33.9 H, MCHC 32.1, RDW Std Deviation 57.8 H, RDW Coeff of Jose 15.1 H, Plt Count 117 L, MPV 9.6, Immature Gran % (Auto) 0.300, Neut % (Auto) 25.1 L, Lymph % (Auto) 69.0 H, [place] % (Auto) 3.9, Eos % (Auto) 1.5, Baso % (Auto) 0.2, Absolute Neuts (auto) 2.3, Absolute Lymphs (auto) 6.36 H, Nucleated RBC % 0, Differential Comment SCANNED 07/04/20 06:15: Sodium 137, Potassium 5.1, Chloride 104, Carbon Dioxide 29.0, Anion Gap 4 L, BUN 37 H, Creatinine 1.76 H, Estim Creat Clear Calc 26.03, Est GFR (MDRD) Af Amer 36 L, Est GFR (MDRD) Non-Af 30 L, BUN/Creatinine Ratio 21.0 H , Glucose 138 H, Calcium 8.6 07/04/20 06:15: PT 25.3 H, INR 2.4 Current Medications Acetaminophen (Tylenol) 650 mg PO Q6H PRN PRN PRN Reason: Pain Score 1-10/Temp > 100.7 F Last Admin: 07/03/20 21:17 Dose: 650 mg Documented by: [facility] Last Admin: 07/04/20 09:31 Dose: 100 mg Documented by: Amlodipine Besylate (Norvasc) 10 mg PO DAILY [facility] Last Admin: 07/04/20 09:32 Dose: 10 mg Documented by: Furosemide (Lasix) 40 mg IV BID@1000,1800 [facility] Last Admin: 07/03/20 17:18 Dose: 40 mg Documented by: Guaifenesin (Mucinex) 1,200 mg PO BID [facility] Last Admin: 07/04/20 09:30 Dose: 1,200 mg Documented by: Hydralazine HCl (Apresoline Iv) 10 mg IV Q6H PRN PRN PRN Reason: BLOOD PRESSURE ELEVATION Magnesium Chloride (Mag64) 128 mg PO DAILY [facility] Last Admin: 07/04/20 09:31 Dose: 128 mg Documented by: Melatonin (Melatonin) 3 mg PO QHS [facility] Last Admin: 07/03/20 21:17 Dose: 3 mg Documented by: Multivitamins (Multivitamin) 1 tablet PO DAILY@0800 [facility] Last Admin: 07/04/20 09:31 Dose: 1 tablet Documented by: Nitroglycerin (Nitrostat) 0.4 mg SUBLINGUAL Q5M PRN PRN Reason: CARDIAC/CHEST PAIN Ondansetron HCl (Zofran) 4 mg IV Q8H PRN PRN PRN Reason: NAUSEA/VOMITING Last Admin: 07/04/20 07:38 Dose: 4 mg Documented by: Potassium Chloride (K-Dur) 40 meq PO BIDCM [facility] Last Admin: 07/04/20 09:30 Dose: 40 meq Documented by: Pramipexole Dihydrochloride (Mirapex) 0.5 mg PO TID [facility] Last Admin: 07/04/20 05:06 Dose: 0.5 mg Documented by: Sodium Chloride () 10 - 40 ml IV UD PRN PRN Reason: SALINE FLUSH Last Admin: 07/04/20 07:38 Dose: 20 ml Documented by: Telmisartan (Telmisartan) 40 mg PO DAILY [facility] Last Admin: 07/04/20 09:33 Dose: 40 mg Documented by: STROKE Vital Signs/Narrative: Vital Signs Temp Pulse Resp BP Pulse Ox 07/04/20 09:24 97.8 F 47 L 17 181/78 H 98 Medical Necessity - Tobacco Use Smoking Status: Never smoker Tobacco Use: Non-smoker Assessment/Plan All Active Problems (Last Updated 07/04/20 @ 10:42 by Becca Beltrán) Junctional bradycardia (Acute) Hyponatremia with excess extracellular fluid volume (Acute) Acute exacerbation of CHF (congestive heart failure) (Acute) # Junctional bradycardia * atenolol discontinued * 2D echo showed EF of 65% with stage II diastolic dysfunction and severely enlarged left atrium and normal right atrium. Pulmonary artery systolic pressure was 45 mmHg. * Cardiology on board. Awaiting pacemaker placement. Patient opted for the micron pacemaker, which will be done on outpatient basis next week. #Acute on chronic heart failure with preserved ejection fraction: * EF as beatris * BNP was 1358 on admission. On IV Lasix 40 mg twice daily. * In cumulative negative balance by 3L since admission. * still short of breath, continue IV lasix 40mg bid for today. * #Paroxysmal A. fib: * Currently bradycardic. * Atenolol on hold. * coumadin on hold o./a of pacemaker placement * INR is 2.4 today #CKD stage IV * stable * #Hypertension: * Atenolol on hold on account of bradycardia. * on telmisartan and amlodipine * IV hydralazine prn #History of CLL: * In remission. Follows with oncology. DVT prophylaxis: coumadin held as above. Inpatient E&M: 60685 Subs Hosp L2
[2020-07-04] MEDS: Furosemide 40 MG Tablet PO (15:05)
[2020-07-04] MEDS: Ondansetron ODT 4 MG Tablet PO (17:31)
[2020-07-04] MEDS: MELATONIN 3 MG TABLET PO (20:41)
[2020-07-05] VITALS (12 sets, daily range): BP systolic 146–189; BP diastolic 76–90; PULSE 47–79; RESP 16–18; TEMP 36.7–37.1; O2SAT 90–96
[2020-07-05] MEDS: Ondansetron ODT 4 MG Tablet PO ×2 (02:26→10:58)
[2020-07-05] MEDS: Pramipexole Di-HCl 0.5 MG Tablet PO ×3 (05:37→21:36)
[2020-07-05 07:09] LABS: Absolute Lymphocyte Count 7.63 X10^3/uL (0.83-4.51); Absolute Neutrophil Count 2.5 X10^3/uL (2.0-7.7); Basophil# 0.02 X10^3/uL; Basophil% 0.2 % (0-1); Eosinophil# 0.13 X10^3/uL; Eosinophils% 1.2 % (0-5); Hematocrit 30.9 % (37-47); Hemoglobin 9.9 g/dL (12.0-15.0); Lymphocyte # 7.63 X10^3/ul (4.0); Lymphocyte % 70.7 % (19-41); Mean Corpuscular Hgb 33.6 pg (27.0-32.0); Mean Corpuscular Volume 104.7 fL (81-99); Mean Platelet Vol. 8.9 fl (6.2-12.0); Monocyte# 0.45 X10^3/uL; Monocyte% 4.2 % (0-10); NRBC Flagged by Analyzer 0 % (0-5); Neutrophil # 2.53 X10^3/uL (2.7-7.7); Neutrophil % 23.4 % (47-70); POSITIVE DIFFERENTIAL YES; Platelet Count 128 K/mm3 (150-450); RBC Distribution Width CV 15.1 % (11.6-14.6); RBC Distribution Width SD 57.2 fl (35.1-43.9); Red Blood Count 2.95 M/mm3 (4.2-5.4); White Blood Count 10.8 K/mm3 (4.4-11.0)
[2020-07-05 07:14] LABS: Differential Indicated SCAN CRITERIA MET
[2020-07-05 07:33] LABS: Anion Gap 4 (5-15); BUN 32 mg/dL (7-18); Chloride 107 mmol/L (98-107); EST Glomerular Filtration Rate 33 mL/min (>60); Est Glom Filt Rate - Afr Amer 40 mL/min (>60); Estimated Creatinine Clearance 28.63 ml/min; Glucose 143 mg/dL (74-106); Potassium 5.1 mmol/L (3.5-5.1); Sodium Level 139 mmol/L (136-145)
[2020-07-05 07:38] LABS: Differential Comment SCANNED
[2020-07-05 08:49] LABS: International Normalized Ratio 1.9; Prothrombin Time (Protime)PT. 21.5 SECONDS (11.7-14.9)
--- NOTE | 2020-07-05 08:56 | PCM.PN.CARD ---
Subjectve: The patient states she is still tired and fatigued and short of breath and dyspneic especially with activity. She also notes there at times she does not feel she can lie in bed comfortably and has to sit up to breathe more comfortably. She experienced nausea yesterday evening which she states may be related to her lack of bowel movement since being in the hospital. Objective: Vital Signs Temp Pulse Resp BP Pulse Ox 98.5 F 54 L 16 189/88 H 94 07/05/20 05:45 07/05/20 07:00 07/05/20 05:45 07/05/20 05:45 07/05/20 05:45 Oxygen Flow Rate (L/min) 2 Oxygen Delivery Method Room Air Weight: 207 lb 0.225 oz Body Mass Index (BMI) 33.6 Intake and Output for Last 24 Hours 07/03/20 07/04/20 07/05/20 23:59 23:59 23:59 Intake Total 920 / 920 540 / 540 100 / 100 Output Total 1820 / 1820 1999 / 1999 275 / 275 Balance -900 / -900 -1460 / -1460 -175 / -175 General: Awake, Alert, Oriented x 3, Cooperative HEENT: Atraumatic, Normocephalic, PERRL, EOMI, Sclera Non Icteric Neck: Supple, Good ROM, Positive JVD Lungs: Diminished Left Base Cardiovascular: Irregular Rhythm, Normal S1, Normal S2 Abdomen: Bowel Sounds Present, Soft Extremities: Trace RLE Edema, Trace LLE Edema Psych/Mental Status: Appropriate 07/05/20 06:50: WBC 10.8, RBC 2.95 L, Hgb 9.9 L, Hct 30.9 L, MCV 104.7 H, MCH 33.6 H, MCHC 32.0, Plt Count 128 L, MPV 8.9, Immature Gran % (Auto) 0.300, Neut % (Auto) 23.4 L, Lymph % (Auto) 70.7 H, [place] % (Auto) 4.2, Eos % (Auto) 1.2, Baso % (Auto) 0.2, Absolute Neuts (auto) 2.5, Nucleated RBC % 0 07/05/20 06:50: Sodium 139, Potassium 5.1, Chloride 107, Carbon Dioxide 28.0, Anion Gap 4 L, BUN 32 H, Creatinine 1.60 H, Est GFR (MDRD) Af Amer 40 L, Est GFR (MDRD) Non-Af 33 L, BUN/Creatinine Ratio 20.0, Glucose 143 H, Calcium 9.0 07/05/20 08:15: PT 21.5 H, INR 1.9 Rhythm: Atrial fibrillation with slow ventricular response with intermittent episodes of junctional bradycardia and occasional PVCs Medical Necessity - Tobacco Use Smoking Status: Never smoker Tobacco Use: Non-smoker Assessment/Plan 1. Cardiac dysrhythmia The patient has a history of cardiac dysrhythmias with atrial fibrillation. She has now demonstrated episodes of a junctional bradycardia. Her rate limiting medication/beta-josh has been placed on hold. She remains with a slow ventricular response and/or intermittent episodes of a junctional bradycardia. Her anticoagulation has been placed on hold to allow her INR to decrease in anticipation of an upcoming permanent pacemaker. The pacemaker options have been previously discussed with her including standard PPM versus a Micra. After discussing this issue with her she voiced her preference of having a Micra device placed noting it would be less incapacitating for her because of her right upper extremity issues which if she had a standard PPM placed her left upper extremity would be temporarily unable to be used which would then leave her in need of even more assistance at home or potentially needing assistance during recovery at an ECF type facility. The hope was that she would be able to be considered stable to be released home to return next week for a Micra to be placed by Dr. Salinas and Dr. Bianchi from [facility]. However if based upon ongoing concerns/symptoms etc. the patient needs to proceed sooner than later and if this cannot be accomplished at [facility] sooner than later and the patient may need to be considered for transfer to a tertiary care facility which can accommodate this. 2. Acute on chronic diastolic mediated CHF The patient did present with concerns of acute on chronic diastolic mediated CHF. She states her breathing is improved compared to admission to the hospital but not her normal baseline. She notes she still has episodes in the hospital where she feels she has to sit up to breathe comfortably. She will continue medical management including diuretic therapy and following her clinical course, her renal function, electrolytes, etc. 3. Hypertension She does have a history of hypertension. Her blood pressure is elevated. If her blood pressures do not come under better control with her medication adjustment that she may need additional medication to assist with antihypertensive therapy. Comment: The patient's case has been discussed and reviewed with the patient as well as with the [facility] staff and Dr. Salinas. Dr. Salinas will be reviewing her case / discuss her case with her. This note was generated using a voice recognition system and there may be incorrect words, spelling or punctuation that were not noted when reviewing the office note prior to saving.
[2020-07-05] MEDS: Furosemide 40 MG/4 ML Vial IV (09:44)
[2020-07-05] MEDS: 0.9% Saline Lock 10 ML Syringe IV (09:44)
[2020-07-05] MEDS: Furosemide 40 MG Tablet PO ×2 (09:46→17:07)
[2020-07-05] MEDS: amLODIPine 10 MG Tablet PO (09:46)
--- NOTE | 2020-07-05 10:14 | NURSING ---
Soap suds enema given as ordered. PT assisted to BSC and instructed to hold enema for as long as possible for best effect. Pt tolerated without difficulty. Call light in reach, pt wants to sit on BSC for some time, will call when ready.
[2020-07-05] MEDS: Allopurinol 100 MG Tablet PO (11:55)
[2020-07-05] MEDS: Multivitamins,Therapeutic Tablet 1 TABLET PO (11:55)
[2020-07-05] MEDS: Magnesium Chloride 64 MG Delay Rel.Tablet 128 MG PO (11:55)
[2020-07-05] MEDS: guaiFENesin 1,200 MG Tablet 1200 MG PO (11:56)
[2020-07-05] MEDS: TELMISARTAN 40 MG TABLET PO (11:56)
--- NOTE | 2020-07-05 12:13 | PN_ITS ---
Patient Problems: Active and Suspected Problems (Last Updated 07/04/20 @ 10:42 by Becca Beltrán) Junctional bradycardia (Acute) Acute exacerbation of CHF (congestive heart failure) (Acute) Subjective: Patient seen and examined. She still complains of feeling nauseous and says she feels weak and does not think she is ready to go home today. She would like pacemaker inserted before she goes home. She denies any vomiting, fever, chills, chest pain, palpitations or dizziness. Review of systems otherwise negative. Vitals/I&O's: Vital Signs Temp Pulse Resp BP Pulse Ox 98.2 F 75 16 153/76 H 96 07/05/20 11:45 07/05/20 11:45 07/05/20 11:45 07/05/20 11:45 07/05/20 11:45 Oxygen Flow Rate (L/min) 2 Oxygen Delivery Method Room Air Weight: 207 lb 0.225 oz Body Mass Index (BMI) 33.6 Intake and Output for Last 24 Hours 07/03/20 07/04/20 07/05/20 23:59 23:59 23:59 Intake Total 920 / 920 540 / 540 460 / 460 Output Total 1820 / 1820 1999 / 1999 1325 / 1325 Balance -900 / -900 -1460 / -1460 -865 / -865 General: Alert, Oriented x3, Cooperative, No apparent distress HEENT: Atraumatic, PERRLA, EOMI, Normocephalic Oral: Dry Mucosa Neck: Supple, No JVD, Negative Carotid Bruits, Negative Hepatojugular Reflux, No Nodes Lungs: Clear to auscultation, Normal air movement, No rhonchi, No wheeze; on room air. Cardiovascular: Normal S1, Normal S2, No murmurs, Bradycardic Abdomen: Bowel Sounds Present, Soft, Non Tender, Non-Distended, No Hepato- splenomegaly Extremities: No clubbing, No cyanosis, No edema, Capillary Refill Less than 3 Seconds Skin: No rashes, No breakdown Musculoskeletal: No Tenderness to Palpation of Joints or Extremities Lymphatic: No Cervical, Supraclavicular, or Inguinal Adenopathy Neurological: Cranial nerves II-XII grossly intact, Neuro grossly intact, Motor Exam 5/5 strength throughout Psych/Mental Status: Normal Affect, Appropriate, Alert and oriented to time, place, person, mood and affect Laboratory Results 07/05/20 06:50: WBC 10.8, RBC 2.95 L, Hgb 9.9 L, Hct 30.9 L, MCV 104.7 H, MCH 33.6 H, MCHC 32.0, RDW Std Deviation 57.2 H, RDW Coeff of Jose 15.1 H, Plt Count 128 L, MPV 8.9, Immature Gran % (Auto) 0.300, Neut % (Auto) 23.4 L, Lymph % (Auto) 70.7 H, Mclennan % (Auto) 4.2, Eos % (Auto) 1.2, Baso % (Auto) 0.2, Absolute Neuts (auto) 2.5, Absolute Lymphs (auto) 7.63 H, Nucleated RBC % 0, Differential Comment SCANNED 07/05/20 06:50: Sodium 139, Potassium 5.1, Chloride 107, Carbon Dioxide 28.0, Anion Gap 4 L, BUN 32 H, Creatinine 1.60 H, Estim Creat Clear Calc 28.63, Est GFR (MDRD) Af Amer 40 L, Est GFR (MDRD) Non-Af 33 L, BUN/Creatinine Ratio 20.0, Glucose 143 H, Calcium 9.0 07/05/20 08:15: PT 21.5 H, INR 1.9 Current Medications Acetaminophen (Tylenol) 650 mg PO Q6H PRN PRN PRN Reason: Pain Score 1-10/Temp > 100.7 F Last Admin: 07/03/20 21:17 Dose: 650 mg Documented by: [facility] Last Admin: 07/05/20 11:55 Dose: 100 mg Documented by: Amlodipine Besylate (Norvasc) 10 mg PO DAILY [facility] Last Admin: 07/05/20 09:46 Dose: 10 mg Documented by: Furosemide (Lasix) 40 mg PO BID@1000,1800 [facility] Last Admin: 07/05/20 09:46 Dose: 40 mg Documented by: Guaifenesin (Mucinex) 1,200 mg PO BID [facility] Last Admin: 07/05/20 11:56 Dose: 1,200 mg Documented by: Hydralazine HCl (Apresoline Iv) 10 mg IV Q6H PRN PRN PRN Reason: BLOOD PRESSURE ELEVATION Magnesium Chloride (Mag64) 128 mg PO DAILY [facility] Last Admin: 07/05/20 11:55 Dose: 128 mg Documented by: Melatonin (Melatonin) 3 mg PO QHS [facility] Last Admin: 07/04/20 20:41 Dose: 3 mg Documented by: Multivitamins (Multivitamin) 1 tablet PO DAILY@0800 [facility] Last Admin: 07/05/20 11:55 Dose: 1 tablet Documented by: Nitroglycerin (Nitrostat) 0.4 mg SUBLINGUAL Q5M PRN PRN Reason: CARDIAC/CHEST PAIN Ondansetron HCl (Zofran) 4 mg IV Q8H PRN PRN PRN Reason: NAUSEA/VOMITING Last Admin: 07/04/20 07:38 Dose: 4 mg Documented by: Ondansetron HCl (Zofran Odt) 4 mg PO Q8H PRN PRN PRN Reason: NAUSEA Last Admin: 07/05/20 10:58 Dose: 4 mg Documented by: Potassium Chloride (K-Dur) 20 meq PO BIDCM [facility] Pramipexole Dihydrochloride (Mirapex) 0.5 mg PO TID [facility] Last Admin: 07/05/20 05:37 Dose: 0.5 mg Documented by: Sodium Chloride () 10 - 40 ml IV UD PRN PRN Reason: SALINE FLUSH Last Admin: 07/05/20 09:44 Dose: 10 ml Documented by: Telmisartan (Telmisartan) 40 mg PO DAILY [facility] Last Admin: 07/05/20 11:56 Dose: 40 mg Documented by: STROKE Vital Signs/Narrative: Vital Signs Temp Pulse Resp BP BP Pulse Ox 07/05/20 11:45 98.2 F 75 16 153/76 H 96 07/05/20 09:47 154/81 H Medical Necessity - Tobacco Use Smoking Status: Never smoker Tobacco Use: Non-smoker Assessment/Plan All Active Problems (Last Updated 07/04/20 @ 10:42 by Becca Beltrán) Junctional bradycardia (Acute) Hyponatremia with excess extracellular fluid volume (Acute) Acute exacerbation of CHF (congestive heart failure) (Acute) # Junctional bradycardia * atenolol discontinued * 2D echo showed EF of 65% with stage II diastolic dysfunction and severely enlarged left atrium and normal right atrium. Pulmonary artery systolic pressure was 45 mmHg. * Cardiology on board. Awaiting pacemaker placement. * Patient now wants pacemaker to be placed before she is discharged. #Acute on chronic heart failure with preserved ejection fraction: * EF as above * BNP was 1358 on admission. On IV Lasix 40 mg twice daily. * In cumulative negative balance by 6L since admission. * still short of breath, continue IV lasix 40mg bid for today. * #Paroxysmal A. fib: * Currently bradycardic. * Atenolol on hold. * coumadin on hold o./a of pacemaker placement * INR is 1.9 today #CKD stage IV * stable * #Hypertension: * Atenolol on hold on account of bradycardia. * on telmisartan and amlodipine * IV hydralazine prn #History of CLL: * In remission. Follows with oncology. DVT prophylaxis: coumadin held as above. Inpatient E&M: 68552 Subs Hosp L2
[2020-07-05] MEDS: MELATONIN 3 MG TABLET PO (21:36)
[2020-07-06] VITALS (19 sets, daily range): BP systolic 133–166; BP diastolic 60–80; PULSE 71–85; RESP 15–20; TEMP 36.6–37; O2SAT 94–98
[2020-07-06 05:11] LABS: Anion Gap 5 (5-15); BUN 28 mg/dL (7-18); BUN/Creat Ratio 18.8 RATIO (10-20); Calcium,Total 8.9 mg/dL (8.5-10.1); Chloride 102 mmol/L (98-107); Creatinine, Serum 1.49 mg/dL (0.55-1.02); EST Glomerular Filtration Rate 36 mL/min (>60); Est Glom Filt Rate - Afr Amer 44 mL/min (>60); Estimated Creatinine Clearance 30.75 ml/min; Glucose 129 mg/dL (74-106); Potassium 4.1 mmol/L (3.5-5.1); Sodium Level 138 mmol/L (136-145)
[2020-07-06 05:14] LABS: International Normalized Ratio 1.7; Prothrombin Time (Protime)PT. 19.8 SECONDS (11.7-14.9)
[2020-07-06] MEDS: Ondansetron ODT 4 MG Tablet PO (07:44)
--- NOTE | 2020-07-06 09:05 | PN.CARD_ITS ---
Subjectve: The patient states she feels somewhat better today with her breathing. It is noted her breathing has improved as her heart rate has improved. Objective: Vital Signs Temp Pulse Resp BP Pulse Ox 98.2 F 85 18 155/77 H 96 07/06/20 08:59 07/06/20 08:59 07/06/20 08:59 07/06/20 08:59 07/06/20 08:59 Oxygen Flow Rate (L/min) 2 Oxygen Delivery Method Room Air Weight: 202 lb 13.204 oz Body Mass Index (BMI) 33.6 Intake and Output for Last 24 Hours 07/04/20 07/05/20 07/06/20 23:59 23:59 23:59 Intake Total 540 / 540 920 / 920 100 / 100 Output Total 1999 2525 / 2525 450 / 450 Balance -1460 / -1460 -1605 / -1605 -350 / -350 General: Awake, Alert, Oriented x 3, Cooperative, No Acute Distress HEENT: Atraumatic, Normocephalic, PERRL, EOMI, Sclera Non Icteric Neck: Supple, Good ROM, No JVD Lungs: Clear to auscultation Cardiovascular: Irregular Rhythm, Normal S1, Normal S2 Abdomen: Bowel Sounds Present, Soft Extremities: Trace RLE Edema, Trace LLE Edema Psych/Mental Status: Appropriate 07/06/20 04:25: PT 19.8 H, INR 1.7 07/06/20 04:25: Sodium 138, Potassium 4.1, Chloride 102, Carbon Dioxide 31.0, Anion Gap 5, BUN 28 H, Creatinine 1.49 H, Est GFR (MDRD) Af Amer 44 L, Est GFR (MDRD) Non-Af 36 L, BUN/Creatinine Ratio 18.8, Glucose 129 H, Calcium 8.9 Rhythm: Atrial fibrillation with intermittent episodes of RVR Medical Necessity - Tobacco Use Smoking Status: Never smoker Tobacco Use: Non-smoker Assessment/Plan 1. Cardiac dysrhythmia The patient has a history of cardiac dysrhythmias with atrial fibrillation. She has now demonstrated episodes of a junctional bradycardia. Her rate limiting medication/beta-josh has been placed on hold. She has now demonstrated return to intermittent episodes of atrial fibrillation with RVR. Her anticoagulation has been placed on hold to allow her INR to decrease in anticipation of an upcoming permanent pacemaker. The pacemaker options have been previously discussed with her including standard PPM versus a Micra. After discussing this issue with her she voiced her preference of having a Micra device placed noting it would be less incapacitating for her because of her right upper extremity issues which if she had a standard PPM placed her left upper extremity would be temporarily unable to be used which would then leave her in need of even more assistance at home or potentially needing assistance during recovery at an ECF type facility. The hope was that she would be able to be considered stable to be released home to return next week for a Micra to be placed by Dr. Salinas and Dr. Bianchi from [facility]. However, she is considering an option, based upon her concerns of going home and waiting until next week to return, of remaining in the hospital and proceeding with a traditional PPM via a right-sided approach to avoid her left side/left upper extremity-her good extremity . He is going to discuss this once again with her daughter. 2. Acute on chronic diastolic mediated CHF The patient did present with concerns of acute on chronic diastolic mediated CHF. She states her breathing is improved compared to admission to the hospital. She will continue medical management including diuretic therapy and following her clinical course, her renal function, electrolytes, etc. 3. Hypertension She does have a history of hypertension. Her blood pressure is elevated. If her blood pressures do not come under better control with her medication adjustment that she may need additional medication to assist with antihypertensive therapy. Comment: The patient's case has been discussed and reviewed with Dr. Wellington and Dr. Salinas - in the patients room with the patient earlier this morning. This note was generated using a voice recognition system and there may be incorr ect words, spelling or punctuation that were not noted when reviewing the office note prior to saving.
[2020-07-06] MEDS: Multivitamins,Therapeutic Tablet 1 TABLET PO (09:25)
[2020-07-06] MEDS: Allopurinol 100 MG Tablet PO (09:26)
--- NOTE | 2020-07-06 13:12 | CL.IE_ITS ---
Patient: ENRICO MEEKS Study Date: 07/06/2020 Performing: Minor Salinas MD : 1945 Age: 75 Gender: female PROCEDURES PERFORMED TL22-RCSOVCH PACER INSERT+VENTRICULAR LEAD INDICATIONS Sinoatrial node dysfunction/Sick sinus syndrome PROCEDURE DETAILS The patient was brought to the Catheterization Lab in the postabsorptive nonsedated state. [facility] was obtained prior to the procedure. Local anesthetic was given subcutaneously to the [facility] upper chest area with Lidocaine 2%. Incision was made to the right upper chest. Access was achie ed and a guidewire was advanced into the right subclavian vein. A peel-away sheath was inserted into the right subclavian vein. PPM ventricular lead was inserted / positioned to right ventricular apex. PPM ventricular lead testing performed. PPM ventricular lead testing performed. The Ventricular PM le ad sutured in place with 2-0 Silk. Device pocket was irrigated with antibiotic. PPM generator was att ached to the lead(s) and inserted into the pocket. PPM generator was then interrogated by the program katherine. Subcutaneous closure was completed with 3-0 Vicryl. Skin closure was completed with 4-0 Vicryl. Steri-strips applied to rt chest area. Instrument, sponge, and needle counts were noted to be normal. The patient tolerated the procedure well. Estimated Blood Loss: < 10 mls IMPLANTED / EX-PLANTED DEVICES IMPLANTED DEVICE(S): PPM Generator - Grant Manager: [employer] Model # l119 , Serial # [id number] PPM Ventricular lead - Grant Manager: [employer], Model # 7841 , Serial # [id number] DEVICE PARAMETERS VENTRICULAR LEAD PARAMETERS: R wave (mV) - 25 current (mA) - .6 threshold (V) - 3.5 impedence (OHMS) - 787 DEVICE PARAMETERS: Mode - vvi lower rate - 60 upper rate - 160 rate response off CONCLUSIONS / RECOMMENDATIONS Device Conclusions: Successful implantation of a single chamber pacemaker Device Recommendations: Follow up with Primary Care Physician PROCEDURE MEDICATIONS Versed 1 mg IV Fentanyl 25 mcg IV Versed 1 mg IV Oxygen: 2 L/min via nasal cannula Clindamycin 900 mg IV 07/06/2020 12:01:37 Signed By Minor Salinas MD On 07/06/2020 13:12:02 Minor Salinas MD
--- NOTE | 2020-07-06 14:26 | PN_ITS ---
Patient Problems: Active and Suspected Problems (Last Updated 07/04/20 @ 10:42 by Becca Beltrán) Junctional bradycardia (Acute) Acute exacerbation of CHF (congestive heart failure) (Acute) Subjective: Patient seen and examined this morning. He still complained of nausea. She did have a momentary episode of tachycardia with heart rate going up to the 130s but immediately reverting to normal rate. Review of signs otherwise negative. Patient was still undecided this morning about whether she wanted to go home and come back for the Micra pacemaker next week or she wanted to stay and do it. After being counseled by cardiology, and discussing with her daughter, patient decided that she wanted to stay and get her regular pacemaker done. Vitals/I&O's: Vital Signs Temp Pulse Resp BP Pulse Ox 97.8 F 75 16 165/80 H 95 07/06/20 14:10 07/06/20 14:10 07/06/20 14:10 07/06/20 14:10 07/06/20 14:10 Oxygen Flow Rate (L/min) 2 Oxygen Delivery Method Room Air Weight: 202 lb 13.204 oz Body Mass Index (BMI) 33.6 Intake and Output for Last 24 Hours 07/04/20 07/05/20 07/06/20 23:59 23:59 23:59 Intake Total 540 / 540 920 / 920 340 / 340 Output Total 1999 / 1999 2525 / 2525 450 / 450 Balance -1460 / -1460 -1605 / -1605 -110 / -110 General: Alert, Oriented x3, Cooperative, No apparent distress HEENT: Atraumatic, PERRLA, EOMI, Normocephalic Oral: Dry Mucosa Neck: Supple, No JVD, Negative Carotid Bruits, Negative Hepatojugular Reflux, No Nodes Lungs: Clear to auscultation, Normal air movement, No rhonchi, No wheeze; on room air. Cardiovascular: Normal S1, Normal S2, No murmurs, normal rate and rhythm Abdomen: Bowel Sounds Present, Soft, Non Tender, Non-Distended, No Hepato- splenomegaly Extremities: No clubbing, No cyanosis, No edema, Capillary Refill Less than 3 Seconds Skin: No rashes, No breakdown Musculoskeletal: No Tenderness to Palpation of Joints or Extremities Lymphatic: No Cervical, Supraclavicular, or Inguinal Adenopathy Neurological: Cranial nerves II-XII grossly intact, Neuro grossly intact, Motor Exam 5/5 strength throughout Psych/Mental Status: Normal Affect, Appropriate, Alert and oriented to time, place, person, mood and affect Laboratory Results 07/06/20 04:25: PT 19.8 H, INR 1.7 07/06/20 04:25: Sodium 138, Potassium 4.1, Chloride 102, Carbon Dioxide 31.0, Anion Gap 5, BUN 28 H, Creatinine 1.49 H, Estim Creat Clear Calc 30.75, Est GFR (MDRD) Af Amer 44 L, Est GFR (MDRD) Non-Af 36 L, BUN/Creatinine Ratio 18.8, Glucose 129 H, Calcium 8.9 Current Medications Acetaminophen (Tylenol) 650 mg PO Q6H PRN PRN PRN Reason: Pain Score 1-10/Temp > 100.7 F Last Admin: 07/03/20 21:17 Dose: 650 mg Documented by: [facility]) [facility] Last Admin: 07/06/20 09:26 Dose: 100 mg Documented by: Amlodipine Besylate (Norvasc) 10 mg PO DAILY [facility] Last Admin: 07/05/20 09:46 Dose: 10 mg Documented by: Furosemide (Lasix) 40 mg PO BID@1000,1800 [facility] Last Admin: 07/05/20 17:07 Dose: 40 mg Documented by: Guaifenesin (Mucinex) 1,200 mg PO BID [facility] Last Admin: 07/05/20 21:36 Dose: Not Given Documented by: Hydralazine HCl (Apresoline Iv) 10 mg IV Q6H PRN PRN PRN Reason: BLOOD PRESSURE ELEVATION Magnesium Chloride (Mag64) 128 mg PO DAILY [facility] Last Admin: 07/05/20 11:55 Dose: 128 mg Documented by: Melatonin (Melatonin) 3 mg PO QHS [facility] Last Admin: 07/05/20 21:36 Dose: 3 mg Documented by: Multivitamins (Multivitamin) 1 tablet PO DAILY@0800 [facility] Last Admin: 07/06/20 09:25 Dose: 1 tablet Documented by: Nitroglycerin (Nitrostat) 0.4 mg SUBLINGUAL Q5M PRN PRN Reason: CARDIAC/CHEST PAIN Ondansetron HCl (Zofran) 4 mg IV Q8H PRN PRN PRN Reason: NAUSEA/VOMITING Last Admin: 07/04/20 07:38 Dose: 4 mg Documented by: Ondansetron HCl (Zofran Odt) 4 mg PO Q8H PRN PRN PRN Reason: NAUSEA Last Admin: 07/06/20 07:44 Dose: 4 mg Documented by: Potassium Chloride (K-Dur) 20 meq PO BIDCM [facility] Last Admin: 07/06/20 09:25 Dose: 20 meq Documented by: Pramipexole Dihydrochloride (Mirapex) 0.5 mg PO TID [facility] Last Admin: 07/06/20 06:06 Dose: Not Given Documented by: Sodium Chloride () 10 - 40 ml IV UD PRN PRN Reason: SALINE FLUSH Last Admin: 07/05/20 09:44 Dose: 10 ml Documented by: Telmisartan (Telmisartan) 40 mg PO DAILY [facility] Last Admin: 07/05/20 11:56 Dose: 40 mg Documented by: STROKE Vital Signs/Narrative: Vital Signs Temp Pulse Resp BP Pulse Ox 07/06/20 14:10 97.8 F 75 16 165/80 H 95 07/06/20 13:54 78 16 157/70 H 97 07/06/20 13:41 75 16 159/77 H 98 Medical Necessity - Tobacco Use Smoking Status: Never smoker Tobacco Use: Non-smoker Assessment/Plan All Active Problems (Last Updated 07/04/20 @ 10:42 by Becca Beltrán) Junctional bradycardia (Acute) Hyponatremia with excess extracellular fluid volume (Acute) Acute exacerbation of CHF (congestive heart failure) (Acute) # Junctional bradycardia * atenolol discontinued * 2D echo showed EF of 65% with stage II diastolic dysfunction and severely en larged left atrium and normal right atrium. Pulmonary artery systolic pressure was 45 mmHg. * HR was briefly in the 130s this morning, but was 85 at time of review * patient agreeable to regular pacemaker today- had successful implantation of a single chamber pacemaker * #Acute on chronic heart failure with preserved ejection fraction: * EF as above * IV lasix switched to PO lasix today * * #Paroxysmal A. fib: * atenolol on hld * coumadin on hold o./a of pacemaker placement * INR is 1.7 today #CKD stage IV * stable * #Hypertension: * Atenolol on hold on account of bradycardia. * on telmisartan and amlodipine * IV hydralazine prn #History of CLL: * In remission. Follows with oncology. DVT prophylaxis: coumadin held as above. Inpatient E&M: [id number] Subs Hosp L2
[2020-07-06] MEDS: Furosemide 40 MG Tablet PO ×2 (14:47→21:00)
[2020-07-06] MEDS: Magnesium Chloride 64 MG Delay Rel.Tablet 128 MG PO (14:47)
[2020-07-06] MEDS: guaiFENesin 1,200 MG Tablet 1200 MG PO (14:48)
[2020-07-06] MEDS: amLODIPine 10 MG Tablet PO (14:48)
[2020-07-06] MEDS: Pramipexole Di-HCl 0.5 MG Tablet PO ×2 (14:49→21:00)
[2020-07-06] MEDS: TELMISARTAN 40 MG TABLET PO (17:04)
[2020-07-06] MEDS: MELATONIN 3 MG TABLET PO (21:01)
[2020-07-07] VITALS (7 sets, daily range): BP systolic 150–165; BP diastolic 60–81; PULSE 78–85; RESP 16–18; TEMP 36.9–37; O2SAT 95–98
--- NOTE | 2020-07-07 05:55 | RAD_ITS ---
STUDY: X-RAY CHEST REASON FOR EXAM: Female, 75 years old. S/P PACEMAKER INSERTION -- TO EXCLUDE PNEUMOTHORAX TECHNIQUE: Frontal and lateral views of the chest. COMPARISON: None. FINDINGS: Pacemaker is seen in the right side. The lungs are clear and expanded. There is no demonstrated pleural abnormality. There is moderate cardiac enlargement. Normal mediastinum and maggie. Normal visualized pulmonary arteries. There is atherosclerotic calcification of the aortic arch with tortuosity. Normal visualized thoracic spine. There is degenerative osteoarthritis of the bilateral shoulders. There is no demonstrated abnormality of the visualized soft tissue structures of the upper abdomen. RAD/Chest 3 View IMPRESSION: Moderate cardiomegaly. Electronically Signed: Krystal Nash, at 7:51 EDT Tel , Service support ,
[2020-07-07] MEDS: Pramipexole Di-HCl 0.5 MG Tablet PO (06:27)
[2020-07-07 06:49] LABS: International Normalized Ratio 1.6; Prothrombin Time (Protime)PT. 18.6 SECONDS (11.7-14.9)
[2020-07-07 07:03] LABS: Anion Gap 6 (5-15); BUN 31 mg/dL (7-18); BUN/Creat Ratio 19.9 RATIO (10-20); Chloride 104 mmol/L (98-107); Creatinine, Serum 1.56 mg/dL (0.55-1.02); EST Glomerular Filtration Rate 34 mL/min (>60); Est Glom Filt Rate - Afr Amer 41 mL/min (>60); Estimated Creatinine Clearance 29.37 ml/min; Glucose 128 mg/dL (74-106); Sodium Level 140 mmol/L (136-145)
--- NOTE | 2020-07-07 08:23 | PCM.PN.CARD ---
Subjectve: The patient states she feels better overall. She has been up and ambulating and does not feel short of breath as she did on admission. Objective: Vital Signs Temp Pulse Resp BP Pulse Ox 98.4 F 83 16 159/76 H 95 07/07/20 03:05 07/07/20 03:16 07/07/20 03:05 07/07/20 03:05 07/07/20 07:33 Oxygen Flow Rate (L/min) 2 Oxygen Delivery Method Room Air Weight: 203 lb 0.732 oz Body Mass Index (BMI) 33.6 Intake and Output for Last 24 Hours 07/05/20 07/06/20 07/07/20 23:59 23:59 23:59 Intake Total 920 / 920 820 / 820 150 / 150 Output Total 2525 / 2525 1050 / 1050 500 / 500 Balance -1605 / -1605 -230 / -230 -350 / -350 General: Awake, Alert, Oriented x 3, Cooperative, No Acute Distress HEENT: Atraumatic, Normocephalic, PERRL, EOMI, Sclera Non Icteric Neck: Supple, Good ROM, No JVD Chest Wall: Right Pectoral Incision - Surgical dressing: dry Lungs: Clear to auscultation Cardiovascular: Irregular Rhythm, Normal S1, Normal S2 Abdomen: Bowel Sounds Present, Soft Extremities: Trace RLE Edema, Trace LLE Edema Psych/Mental Status: Appropriate 07/07/20 06:10: Sodium 140, Potassium 4.0, Chloride 104, Carbon Dioxide 30.0, Anion Gap 6, BUN 31 H, Creatinine 1.56 H, Est GFR (MDRD) Af Amer 41 L, Est GFR (MDRD) Non-Af 34 L, BUN/Creatinine Ratio 19.9, Glucose 128 H, Calcium 9.0 07/07/20 06:10: PT 18.6 H, INR 1.6 Rhythm: Atrial fibrillation Medical Necessity - Tobacco Use Smoking Status: Never smoker Tobacco Use: Non-smoker Assessment/Plan 1. Cardiac dysrhythmia The patient has a history of cardiac dysrhythmias with atrial fibrillation. She demonstrated findings of underlying junctional bradycardia. She subsequently turned to atrial fibrillation with intermittent episodes of RVR. She is now status post permanent pacemaker placement. She will resume her beta-josh therapy to assist with her rate control. Her anticoagulation therapy is on temporary hold pending healing of her permanent pacemaker site. 2. Acute on chronic diastolic mediated CHF The patient did present with concerns of acute on chronic diastolic mediated CHF. She states her breathing is improved compared to admission to the hospital. She will continue medical management including diuretic therapy and following her clinical course, her renal function, electrolytes, etc. 3. Hypertension She does have a history of hypertension. She will be resuming her beta-josh therapy which hopefully will help with her blood pressure control. Overall, from a cardiac standpoint, if the patient's pacemaker interrogation is stable medication has the option, is noted that her chest x-ray appears stable with no acute concern, and noting the patient appears to be symptomatically improved at this time, but hopefully she can be released home later today for continued outpatient cardiovascular follow-up. This note was generated using a voice recognition system and there may be incorrect words, spelling or punctuation that were not noted when reviewing the office note prior to saving.
[2020-07-07] MEDS: Allopurinol 100 MG Tablet PO (08:46)
[2020-07-07] MEDS: guaiFENesin 1,200 MG Tablet 1200 MG PO (08:46)
[2020-07-07] MEDS: Furosemide 40 MG Tablet PO (08:46)
[2020-07-07] MEDS: Multivitamins,Therapeutic Tablet 1 TABLET PO (08:46)
[2020-07-07] MEDS: Magnesium Chloride 64 MG Delay Rel.Tablet 128 MG PO (08:46)
[2020-07-07] MEDS: TELMISARTAN 40 MG TABLET PO (08:47)
[2020-07-07] MEDS: amLODIPine 10 MG Tablet PO (08:47)
--- NOTE | 2020-07-07 10:32 | PCM.DC ---
- Discharge Diagnoses Current Active Problems: Current Active and Chronic Problems (Last Updated 07/06/20 @ 17:07 by Nicky Luis) Presence of permanent cardiac pacemaker (Chronic ~07/06/20) Junctional bradycardia (Acute) Chronic renal insufficiency (Chronic) Acute exacerbation of CHF (congestive heart failure) (Acute) Atrial fibrillation (Chronic) CLL (chronic lymphocytic leukemia) (Chronic) You will use the following diet at home:: Cardiac Your food should be the consistency of: Regular Your liquids should be the consistency of: Regular/Thin Discharge Activity: Return to Normal Activity Weight Bearing Status: Weight bearing as tolerated Call your doctor if you observe: Fever of 101 or Higher, Numbness or Tingling, Shortness of breath, Dizziness, Fainting spells, Swelling in the ankles, Chest pain, Increased palpitations (irregular heartbeat) Instructions: Living with a Pacemaker, Pacemakers, ED Bradycardia Allergies/Adverse Reactions: Allergies erythromycin base [Erythromycin Base] Adverse Reaction (Intermediate, Verified 06/30/20 15:33) Unknown Penicillins Adverse Reaction (Intermediate, Verified 06/30/20 15:33) Rash Medications to take at Discharge Multivitamins,Therapeutic [Multivitamin] 1 tab PO DAILY 07/18/14 Allopurinol [Zyloprim] 100 mg PO DAILYCM 01/20/17 capsicum (cayenne) 450 mg capsule 450 mg PO DAILY cap 02/04/19 Potassium Chloride [K-Dur] 40 meq PO BID 09/06/19 telmisartan 40 mg tablet 40 mg PO DAILY #1 tab 12/31/19 turmeric 400 mg capsule 800 mg PO DAILY cap 12/31/19 Warfarin Sodium [Coumadin] 8 mg PO SUFRSA 06/30/20 Warfarin [Coumadin] 2.5 mg PO MOTUWETH 06/30/20 calcitriol 0.25 mcg capsule 0.25 mcg PO DAILY 06/30/20 coenzyme Q10 50 mg capsule 50 mg PO DAILY cap 06/30/20 furosemide 40 mg tablet 40 mg PO BID tab 06/30/20 magnesium oxide 500 mg tablet 1,000 mg PO DAILY tab 06/30/20 Guaifenesin [Mucinex] 1,200 mg PO DAILY 07/02/20 Atenolol [Tenormin (beta josh)] 25 mg PO DAILY #30 tab 07/07/20 The following prescriptions were given: Atenolol [Tenormin (beta josh)] 25 mg PO DAILY #30 tab Transmission Status: Pending to [facility] Primary Care Physician: Israel Bucio DO [Primary Care Provider] - Please follow up with your Primary Care Physician in: 1-2 weeks Test Results: Test results from this visit will be discussed in further detail at your follow-up appointment, if applicable. Please Follow Up With: Israel Bucio DO Please Follow Up With: Lloyd King MD When: 2-3 weeks Proposed Discharge Date: 07/07/20
--- NOTE | 2020-07-07 10:40 | PCM.DC.SUM ---
Discharge Date and Diagnosis - Problem List Patient Problems: Active and Suspected Problems (Last Updated 07/06/20 @ 17:07 by Nicky Luis) Junctional bradycardia (Acute) Acute exacerbation of CHF (congestive heart failure) (Acute) Date of Admission: 06/30/20 Date of Discharge: 07/07/20 - Primary Discharge Diagnosis Acute Problems: Active Problems (Last Updated 07/06/20 @ 17:07 by Nicky Luis) Junctional bradycardia (Acute) Acute on chronic exacerbation of CHF (congestive heart failure) (Acute) - Secondary Discharge Diagnosis Chronic Problems: Chronic Problems (Last Updated 07/06/20 @ 17:07 by Nicky Luis) Presence of permanent cardiac pacemaker (Chronic ~07/06/20) Sick sinus syndrome (Chronic) FCI (current) use of anticoagulants (Chronic) Chronic renal insufficiency (Chronic) Chronic atrial fibrillation (Chronic) Diastolic congestive heart failure (Chronic) Paroxysmal atrial fibrillation (Chronic) DCCV on 03/02/2019; History of cardioversion (Chronic 03/02/19) Hypertension (Chronic) Atrial fibrillation (Chronic) CLL (chronic lymphocytic leukemia) (Chronic) Hospital Course and Treatment Imaging Results: 07/07/20 05:55 Chest 3 View [RAD] Routine Operations: None Procedures: 2-D Echocardiogram, - - pacemaker insertion Summary of Care Provided: The patient is a 75 year old F with extensive past medical history as outlined which includes A. fib status post cardioversion, CKD stage III and a history of CLL as well as chronic congestive heart failure with preserved ejection fraction. She was admitted via the ED on 06/30/2020 after she presented there from her supervisor [employer] office with bradycardia. She had 1 see her supervisor feed house on account of worsening shortness of breath for 2 weeks prior to admission. Shortness of breath was worsened by exertion and relieved by rest and she had lower extremity edema as well. She also had intermittent lightheadedness but denied any chest pain. In her supervisor feed house office, she was noted to have junctional bradycardia with heart rate in the 30s. She had been on atenolol. She was admitted and managed for symptomatic junctional bradycardia and acute on chronic heart failure preserved ejection fraction. Her atenolol was held and she was started on diuresis with IV Lasix. 2D echo done showed EF of 65% with no regional wall motion abnormalities and stage II diastolic dysfunction with severely enlarged left atrium and normal right atrium. Cardiology was consulted. Patient shortness of breath improved gradually with diuresis. Initially patient wanted to have the Micra pacemaker inserted but this could not be done until a week after. Patient was not comfortable with going home and coming back for my card to be placed so she agreed for regular pacemaker placement. Pacemaker was inserted on 07/06/2020. It was inserted on the right side as patient said she had problems with her left arm and so was concerned about possible impaired movement with her left arm. She had right-sided pacemaker insertion done on 2019. Patient tolerated procedure well and had a post pacer check on 07/07/2020. Chest x-ray 09/15/2020 was normal. Stay was also complicated by brief episode of A. fib with RVR but this subsequently resolved spontaneously. Patient remained stable and was discharged home on 07/07/2020. Patient counseled to stay off of her Coumadin for now until she is reviewed by the supervisor feed house in the office. She is follow-up with her primary care doctor and cardiology within 1 to 2 weeks. Patient seen and examined. She had no complaints and felt well. Review of systems otherwise negative. Labs and vitals reviewed. Home meds reviewed and reconciled. O/E: Vital Signs Temp Pulse Resp BP Pulse Ox 98.6 F 78 18 150/60 H 98 07/07/20 12:50 07/07/20 12:50 07/07/20 12:50 07/07/20 12:50 07/07/20 12:50 [] General: Alert, Oriented x3, Cooperative, No apparent distress HEENT: Atraumatic, PERRLA, EOMI, Normocephalic Oral: Dry Mucosa Neck: Supple, No JVD, Negative Carotid Bruits, Negative Hepatojugular Reflux, No Nodes Lungs: Clear to auscultation, Normal air movement, No rhonchi, No wheeze; on room air. Cardiovascular: Normal S1, Normal S2, No murmurs, normal rate and rhythm Abdomen: Bowel Sounds Present, Soft, Non Tender, Non-Distended, No Hepato-splenomegaly Extremities: No clubbing, No cyanosis, No edema, Capillary Refill Less than 3 Seconds Skin: No rashes, No breakdown Musculoskeletal: No Tenderness to Palpation of Joints or Extremities Lymphatic: No Cervical, Supraclavicular, or Inguinal Adenopathy Neurological: Cranial nerves II-XII grossly intact, Neuro grossly intact, Motor Exam 5/5 strength throughout Psych/Mental Status: Normal Affect, Appropriate, Alert and oriented to time, place, person, mood and affect Plan is for discharge home today. Patient Problems: Active and Suspected Problems (Last Updated 07/06/20 @ 17:07 by Nicky Luis) Junctional bradycardia (Acute) Acute exacerbation of CHF (congestive heart failure) (Acute) - Physical Exam Vitals/I&O's: Vital Signs Temp Pulse Resp BP Pulse Ox 98.6 F 84 18 165/81 H 96 07/07/20 08:42 07/07/20 08:42 07/07/20 08:42 07/07/20 08:42 07/07/20 08:42 Oxygen Flow Rate (L/min) 2 Oxygen Delivery Method Room Air Weight: 203 lb 0.732 oz Body Mass Index (BMI) 33.6 Intake and Output for Last 24 Hours 07/05/20 07/06/20 07/07/20 23:59 23:59 23:59 Intake Total 920 / 920 820 / 820 150 / 150 Output Total 2525 / 2525 1050 / 1050 500 / 500 Balance -1605 / -1605 -230 / -230 -350 / -350 Laboratory Results 07/07/20 06:10: Sodium 140, Potassium 4.0, Chloride 104, Carbon Dioxide 30.0, Anion Gap 6, BUN 31 H, Creatinine 1.56 H, Estim Creat Clear Calc 29.37, Est GFR (MDRD) Af Amer 41 L, Est GFR (MDRD) Non-Af 34 L, BUN/Creatinine Ratio 19.9, Glucose 128 H, Calcium 9.0 07/07/20 06:10: PT 18.6 H, INR 1.6 Current Medications Acetaminophen (Tylenol) 650 mg PO Q6H PRN PRN PRN Reason: Pain Score 1-10/Temp > 100.7 F Last Admin: 07/03/20 21:17 Dose: 650 mg Documented by: Allopurinol (Zyloprim) 100 mg PO [facility] Last Admin: 07/07/20 08:46 Dose: 100 mg Documented by: Amlodipine Besylate (Norvasc) 10 mg PO DAILY [facility] Last Admin: 07/07/20 08:47 Dose: 10 mg Documented by: Atenolol (Tenormin (Beta Paras)) 25 mg PO DAILY [facility] Furosemide (Lasix) 40 mg PO BID@1000,1800 [facility] Last Admin: 07/07/20 08:46 Dose: 40 mg Documented by: Guaifenesin (Mucinex) 1,200 mg PO BID [facility] Last Admin: 07/07/20 08:46 Dose: 1,200 mg Documented by: Hydralazine HCl (Apresoline Iv) 10 mg IV Q6H PRN PRN PRN Reason: BLOOD PRESSURE ELEVATION Magnesium Chloride (Mag64) 128 mg PO DAILY [facility] Last Admin: 07/07/20 08:46 Dose: 128 mg Documented by: Melatonin (Melatonin) 3 mg PO QHS [facility] Last Admin: 07/06/20 21:01 Dose: 3 mg Documented by: Multivitamins (Multivitamin) 1 tablet PO DAILY@0800 [facility] Last Admin: 07/07/20 08:46 Dose: 1 tablet Documented by: Nitroglycerin (Nitrostat) 0.4 mg SUBLINGUAL Q5M PRN PRN Reason: CARDIAC/CHEST PAIN Ondansetron HCl (Zofran) 4 mg IV Q8H PRN PRN PRN Reason: NAUSEA/VOMITING Last Admin: 07/04/20 07:38 Dose: 4 mg Documented by: Ondansetron HCl (Zofran Odt) 4 mg PO Q8H PRN PRN PRN Reason: NAUSEA Last Admin: 07/06/20 07:44 Dose: 4 mg Documented by: Potassium Chloride (K-Dur) 20 meq PO BIDCM [facility] Last Admin: 07/07/20 08:45 Dose: 20 meq Documented by: Pramipexole Dihydrochloride (Mirapex) 0.5 mg PO TID [facility] Last Admin: 07/07/20 06:27 Dose: 0.5 mg Documented by: Sodium Chloride () 10 - 40 ml IV UD PRN PRN Reason: SALINE FLUSH Last Admin: 07/05/20 09:44 Dose: 10 ml Documented by: Telmisartan (Telmisartan) 40 mg PO DAILY [facility] Last Admin: 07/07/20 08:47 Dose: 40 mg Documented by: Discharge Diet: Low fat/ Low Cholesterol Discharge Activity: Return to Normal Activity Weight Bearing Status: Weight bearing as tolerated Call your doctor if you observe: Fever of 101 or Higher, Numbness or Tingling, Shortness of breath, Dizziness, Fainting spells, Swelling in the ankles, Chest pain, Increased palpitations (irregular heartbeat) Home Medications: Medications to take at Discharge Multivitamins,Therapeutic [Multivitamin] 1 tab PO DAILY 07/18/14 Allopurinol [Zyloprim] 100 mg PO DAILYCM 01/20/17 capsicum (cayenne) 450 mg capsule 450 mg PO DAILY cap 02/04/19 Potassium Chloride [K-Dur] 40 meq PO BID 09/06/19 telmisartan 40 mg tablet 40 mg PO DAILY #1 tab 12/31/19 turmeric 400 mg capsule 800 mg PO DAILY cap 12/31/19 Warfarin Sodium [Coumadin] 8 mg PO SUFRSA 06/30/20 Warfarin [Coumadin] 2.5 mg PO MOTUWETH 06/30/20 calcitriol 0.25 mcg capsule 0.25 mcg PO DAILY 06/30/20 coenzyme Q10 50 mg capsule 50 mg PO DAILY cap 06/30/20 furosemide 40 mg tablet 40 mg PO BID tab 06/30/20 magnesium oxide 500 mg tablet 1,000 mg PO DAILY tab 06/30/20 Guaifenesin [Mucinex] 1,200 mg PO DAILY 07/02/20 Atenolol [Tenormin (beta paras)] 25 mg PO DAILY #30 tab 07/07/20 Following Prescriptions Were Given to Patient: Atenolol [Tenormin (beta paras)] 25 mg PO DAILY #30 tab Transmission Status: Received by [facility] Primary Care Physician: Israel Bucio DO [Primary Care Provider] - Please follow up with your Primary Care Physician in: 1-2 weeks Please Follow Up With: Israel Bucio DO Please Follow Up With: Lloyd King MD When: 2-3 weeks Patient Instructions: Pacemakers, Living with a Pacemaker, ED Bradycardia Disposition: Home Minutes spent on discharge:: 40 Patient Condition:: Stable Medical Necessity - Tobacco Use Smoking Status: Never smoker Tobacco Use: Non-smoker Meaningful Use Info Meaningful Use Diagnoses (Choose all that apply): CHF - CHF ARSEN/ARB ordered at discharge?: Yes Documented LVEF (%): 65 Inpatient E&M: 88153 Disch Hosp
--- NOTE | 2020-07-07 10:45 | PHA.DC.MR ---
Pharmacy Service has performed discharge medication reconciliation for this patient. The patient's discharge medication list was reviewed for discrepancies and discrepancies were resolved. Home Medications Multivitamins,Therapeutic [Multivitamin] 1 tab PO DAILY 07/18/14 Allopurinol [Zyloprim] 100 mg PO DAILYCM 01/20/17 capsicum (cayenne) 450 mg capsule 450 mg PO DAILY cap 02/04/19 Potassium Chloride [K-Dur] 40 meq PO BID 09/06/19 telmisartan 40 mg tablet 40 mg PO DAILY #1 tab 12/31/19 turmeric 400 mg capsule 800 mg PO DAILY cap 12/31/19 Warfarin Sodium [Coumadin] 8 mg PO SUFRSA 06/30/20 Warfarin [Coumadin] 2.5 mg PO MOTUWETH 06/30/20 calcitriol 0.25 mcg capsule 0.25 mcg PO DAILY 06/30/20 coenzyme Q10 50 mg capsule 50 mg PO DAILY cap 06/30/20 furosemide 40 mg tablet 40 mg PO BID tab 06/30/20 magnesium oxide 500 mg tablet 1,000 mg PO DAILY tab 06/30/20 Guaifenesin [Mucinex] 1,200 mg PO DAILY 07/02/20 Atenolol [Tenormin (beta josh)] 25 mg PO DAILY #30 tab 07/07/20
--- NOTE | 2020-07-07 10:47 | CASEMGMT ---
RN CM Note: Intro role of CM to patient, discharging today. Patient and daughter are in room and able to participate in dc planning. Discussed PT/OT notes and discussed HHC. They are declining, stating patient has assist if needed. Discussed getting walker, cane. Patient is declining walker, but daughter will go to [facility] on [address] and buy cane for patient. Both states patient does better @ home, and do not have concerns @ this time. DC: home on dc. Rigo HAYNES RN ACM
[2020-07-07] MEDS: Atenolol 25 MG Tablet PO (11:28)
--- NOTE | 2020-07-07 12:53 | DCINST_ITS ---
Discharge Diet: No Restrictions Discharge Activity: Return to Normal Activity, May Not Drive Weight Bearing Status: Weight bearing as tolerated Call your doctor if your incision/area has: Continuous Slow Oozing, Sudden Increased Bleeding, Increased Pain/ Swelling, Increased Redness, Foul Smelling Discharge, Swelling at the incision site Call your doctor if you observe: Fever of 101 or Higher, Numbness or Tingling, Shortness of breath, Dizziness, Fainting spells, Swelling in the ankles, Chest pain, Increased palpitations (irregular heartbeat) Additional Dressing/Incision Instructions:: When dressing is removed, wash and dry incision. Keep covered with a light bandage if it is rubbing against your clothing. Do not cover the incision with an airtight bandage. Change the bandage daily. Do not remove steri strips. The strips will fall off on their own. Instructions: Pacemakers, Living with a Pacemaker, ED Bradycardia Additional Instructions: Signs and Symptoms to Report to Your Doctor at Once - call your doctor's office or Doctor's Registry ([phone]) Call 911 or go to the nearest Emergency Department if you feel you need urgent care. *Infection (fever, increased redness or swelling at the incision site, drainage from the incision increased pain at the pacemaker site) *Shortness of breath *Dizziness *Fainting spells *Swelling in the ankles *Chest pain *Prolonged hiccoughing *Increased palpitaitons (irregular heartbeat) Medications: Take your pain medication as directed. Refer to your discharge instruction sheet for a list of medications you are to take. Allergies/Adverse Reactions: Allergies erythromycin base [Erythromycin Base] Adverse Reaction (Intermediate, Verified 06/30/20 15:33) Unknown Penicillins Adverse Reaction (Intermediate, Verified 06/30/20 15:33) Rash Medications to take at Discharge Multivitamins,Therapeutic [Multivitamin] 1 tab PO DAILY 07/18/14 Allopurinol [Zyloprim] 100 mg PO DAILYCM 01/20/17 capsicum (cayenne) 450 mg capsule 450 mg PO DAILY cap 02/04/19 Potassium Chloride [K-Dur] 40 meq PO BID 09/06/19 telmisartan 40 mg tablet 40 mg PO DAILY #1 tab 12/31/19 turmeric 400 mg capsule 800 mg PO DAILY cap 12/31/19 calcitriol 0.25 mcg capsule 0.25 mcg PO DAILY 06/30/20 coenzyme Q10 50 mg capsule 50 mg PO DAILY cap 06/30/20 furosemide 40 mg tablet 40 mg PO BID tab 06/30/20 magnesium oxide 500 mg tablet 1,000 mg PO DAILY tab 06/30/20 Guaifenesin [Mucinex] 1,200 mg PO DAILY 07/02/20 Atenolol [Tenormin (beta josh)] 25 mg PO DAILY #30 tab 07/07/20 The following prescriptions were given: Atenolol [Tenormin (beta josh)] 25 mg PO DAILY #30 tab Transmission Status: Received by [facility] Primary Care Physician: Israel Bucio DO [Primary Care Provider] - Please follow up with your Primary Care Physician in: 1-2 weeks Test Results: Test results from this visit will be discussed in further detail at your follow- up appointment, if applicable. When: Pacer clinic follow up Proposed Discharge Date: 07/07/20
--- NOTE | 2020-07-07 13:15 | NURSING ---
Pt left prior to addendum being printed. Out. Pt's daughter Vesna called and notified of addendum. Daughter stated understanding to hold coumadin unitl reviewed by cardiology in the office
--- NOTE | 2020-07-10 15:29 | CASEMGMT ---
VASQUE[facility] CM DC PHONE CALL DC DATE: 07/07/2020 DC DISPOSITION: Home DC DIAGNOSIS: CHF, bradycardia LACE/STRATA: 06/01 F/U APPTS MADE PRIOR TO DC: yes Attempted call to patient's phone. No answer, and no messaging with name identifier. Rigo GELLERN RN ACM
== END 2020-07-07 13:00 | disposition home or self-care (01) | DRG 242 ==
LOC: ED 16:32 → PCU 16:53
PROVIDERS: Internal Medicine Cardiovascular Disease; Emergency Provider Physician Assistant Medical; PCP Family Medicine; Visit Provider Student in an Organized Health Care Education/Training Program
DX: I49.5 Sick sinus syndrome (principal); I50.33 Acute on chronic diastolic (congestive) heart failure; I13.0 Hypertensive heart and chronic kidney disease with heart failure and stage 1 through stage 4 chronic kidney disease, or unspecified chronic kidney disease; N18.4 Chronic kidney disease, stage 4 (severe); C91.11 Chronic lymphocytic leukemia of B-cell type in remission; I48.0 Paroxysmal atrial fibrillation; E03.9 Hypothyroidism, unspecified; R06.00 Dyspnea, unspecified; Z79.01 Long term (current) use of anticoagulants
CPT/HCPCS: 33207; 36415; 71046; 71047; 80048; 83880; 84439; 84443; 84481; 84484; 85025; 85610; 93005; 93306; 97162; 97166; 99152; 99153; 99285; J7040; J7050; Q9957; A4216; C1894; C8929; J1940; J2405

== ENCOUNTER 2020-07-14 18:41 | Inpatient (IN) | payer MEDICARE, OTHER, SELFPAY ==
[2020-06-30 17:14] VITALS: BMI 33.6
[2020-07-14 18:41] VITALS: BP 156/85; PULSE 66; RESP 18; TEMP 36.3; O2SAT 100; BMI 30.5
--- NOTE | 2020-07-14 20:48 | EKG12_ITS ---
Test Reason : DYSRHYTHMIA Blood Pressure : / mmHG Vent. Rate : 062 BPM Atrial Rate : 052 BPM P-R Int : 000 ms QRS Dur : 180 ms QT Int : 506 ms P-R-T Axes : 000 -72 083 degrees QTc Int : 513 ms Ventricular-paced rhythm with occasional supraventricular complexes Abnormal ECG When compared with ECG of 30-JUN-2020 15:58, Electronic ventricular pacemaker has replaced Junctional rhythm Vent. rate has increased BY 24 BPM Confirmed by HEATHER CHAN, SAMM ([id number]), editor at large MONICA CRYSTAL ([id number]) on 07/25/2020 12:51:43 PM Referred By: ABHISHEK Confirmed By:SAMM ROMERO MD
--- NOTE | 2020-07-14 20:50 | CT_ITS ---
HISTORY: TECHNIQUE:CTA Chest WO/W Contrast Injection A CT of the chest was performed following the administration of ml 75mL Isovue-370 Thin axial reconstructed images were performed through the pulmonary vasculature as per the routine pulmonary embolus protocol.MIP and mutiplanar reconstructions A dose optimization technique was used during the scan # of images including paperwork:[id number] Comparison: Chest radiograph on July 07, 2020 FINDINGS: No aneurysm or dissection. Pulmary arteries: No evidence of pulmonary emboli The heart is enlarged. No evidence of right heart strain. No pericardial effusion. No pleural effusion. There are mediastinal lymph nodes are pathologic by size criteria No hilar adenopathy or axillary adenopathy Correlate clinically. The lungs patchy groundglass opacities are seen bilaterally most marked centrally. This may be secondary to atypical pneumonitis edema or less likely hemorrhage.. Pneumpothorax: none The trachea and central airways appear patent . Limited views of the upper abdomen please refer to CT of the abdomen pelvis obtained on this date Increased thoracic kyphosis. Compression deformity is seen at the level of T8. This appears chronic with no surrounding hematoma. If the patient has pain in this area consider MRI follow-up. No acute osseous abnormality. Degenerative changes at the glenohumeral joints bilaterally with joint space narrowing greater on the left CT/CTA Chest W/WO Contrast IMPRESSION: There is no aneurysm, dissection, or pulmonary embolism Cardiomegaly without evidence of right heart strain There are patchy groundglass opacity seen bilaterally most marked centrally this may be secondary to atypical pneumonitis edema or less likely hemorrhage. Correlate clinically No effusions are noted Chronic appearing compression deformity at T8. If patient has pain in this area consider MRI follow-up for further evaluation Individualized dose optimization techniques were used for this CT. at 2337 Reported and signed by: Leila Noriega DO Electronically Signed: Leila Noriega DO at 23:36 EDT Tel , Service support ,
--- NOTE | 2020-07-14 20:51 | CT_ITS ---
We are attempting to reach an attending provider to discuss findings. An addendum with communication details will be sent when the communication is complete. HISTORY: LUQ PAIN AND LEFT SHOULDER PAIN, SOB, PT HAD PACER PLACED ON 07-06, PT IS ON COUMADIN, HX HTN, A-FIB, HTN TECHNIQUE: Helically acquired images were obtained of the abdomen and pelvis following IV contrast. A radiation dose optimization technique was used for this scan. IV Contrast dosage and agent: 75mL [id number] Oral contrast: None. COMPARISON: None FINDINGS: # of images incl. paperwork: [phone] Please refer to CTA of the chest obtained on this date LIVER: Homogeneous. No focal mass. GALLBLADDER AND BILIARY TREE: Cholecystectomy. There is intrahepatic ductal dilatation that is slightly more prominent than on the prior study. KIDNEYS AND URETERS: Left kidney is atrophic similar to prior study Low-density lesions again noted within the kidney compatible with cysts that were present on the prior study and are similar There is no hydronephrosis or hydroureter ADRENAL GLANDS: Non-enlarged. SPLEEN: Low-density lesion is seen within the posterior superior aspect of the spleen measuring approximately 4 cm in diameter. This was not seen on the prior study. This may be secondary to splenic infarction. PANCREAS: Calcifications within the pancreas that were present on the prior study compatible with chronic pancreatitis Again noted is a low density lesion seen within the tail of the pancreas on image 39 series 6. This appears larger on today's study measuring approximately 1.4 cm on coronal image 76 series 607. If this has not been worked up previously consider MRI with pancreatic protocol for additional evaluation. BOWEL: The stomach and small bowel are unremarkable Retained fecal material throughout the colon. Correlate clinically for constipation No diverticulitis The appendix is not visualized but no pericecal inflammation LYMPH NODES: No enlarged mesenteric or retroperitoneal lymph nodes. PERITONEUM: No ascites or free air. No other fluid collection. VESSELS: Aorta is non-dilated. URINARY BLADDER: Incompletely distended, otherwise grossly unremarkable. REPRODUCTIVE ORGANS: No pelvic masses or pelvic ascites. ABDOMINAL WALL: No discrete abdominal or pelvic wall hernia observed. BONES: Levoscoliosis in the lumbar spine Grade 1 anterior spondylolisthesis L4 on L5 that appears degenerative. Central joint space narrowing of the hips bilaterally with collar osteophytes. Trefoil appearance the canal at the level of L2-3 Progressive canal stenosis at the level of L3-4. Subarticular recess narrowing at L4-5 with canal stenosis similar to prior study CT/Abdomen/Pelvis W IV Cont ONLY IMPRESSION: Cholecystectomy Atrophic left kidney Right renal cyst similar to prior study Low-density lesion in the tail of pancreas that is increased in size when compared to the prior study. If this has not been evaluated and worked up then recommend MRI with pancreatic protocol for further evaluation. Findings also compatible with chronic pancreatitis similar to prior study There is a new low-density lesion within the superior posterior aspect of the spleen. This may represent a splenic infarction however there are other etiologies that can create this appearance. 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 Correlate clinically for constipation Individualized dose optimization techniques were used for this CT. at 2343 Reported and signed by: Leila Noriega DO Electronically Signed: Leila Noriega DO at 23:42 EDT Tel , Service support ,
[2020-07-14 20:52] LABS: Bacteria 0 SEEN /hpf (None Seen); Mucous, Urine 0 SEEN /hpf (<or=2+); Red Blood Cells-Urine 0 SEEN /hpf (0-5)
[2020-07-14 21:04] LABS: Color, Urine Yellow (Yellow); Glucose, Dipstick Normal (Normal); Ketone-Dipstick Negative (Negative); Leukocyte Esterase-Dipstick Negative /ul (Negative); Nitrite-Dipstick Negative (Negative); Occult Blood-Urine 10 /ul (Negative); Protein-Dipstick 15 mg/dl (Negative); Urine Bilirubin Dipstick Negative (Negative); Urine Clarity Clear (Clear); Urine Urobilinogen Normal (Normal); Urine pH 6.5 (5.0 - 8.0)
[2020-07-14 21:16] LABS: Hyaline Cast 0-5 SEEN /lpf (0-5); Squamous Epithelial Cells - UA 0-5 SEEN /hpf (5-10); White Blood Cells 0-5 SEEN /hpf (0-5)
[2020-07-14 21:20] LABS: Absolute Neutrophil Count 2.3 X10^3/uL (2.0-7.7); Basophil# 0.01 X10^3/uL; Basophil% 0.1 % (0-1); Eosinophil# 0.15 X10^3/uL; Eosinophils% 1.6 % (0-5); Hematocrit 33.5 % (37-47); Hemoglobin 10.6 g/dL (12.0-15.0); Mean Corp Hgb Conc 31.6 g/dL (32-36); Mean Corpuscular Hgb 33.5 pg (27.0-32.0); Mean Platelet Vol. 9.2 fl (6.2-12.0); Monocyte# 0.34 X10^3/uL; Monocyte% 3.7 % (0-10); NRBC Flagged by Analyzer 0 % (0-5); Neutrophil # 2.27 X10^3/uL (2.7-7.7); Neutrophil % 24.4 % (47-70); POSITIVE DIFFERENTIAL YES; POSITIVE MORPHOLOGY YES; Platelet Count 126 K/mm3 (150-450); RBC Distribution Width CV 15.2 % (11.6-14.6); RBC Distribution Width SD 59.2 fl (35.1-43.9); Red Blood Count 3.16 M/mm3 (4.2-5.4); White Blood Count 9.3 K/mm3 (4.4-11.0)
[2020-07-14 21:25] LABS: International Normalized Ratio 1.3; Prothrombin Time (Protime)PT. 15.4 SECONDS (11.7-14.9)
[2020-07-14 21:26] LABS: Differential Indicated SCAN CRITERIA MET
[2020-07-14 21:51] LABS: Differential Comment SCANNED
[2020-07-14 21:57] LABS: ALB/GLOB Ratio 0.8 RATIO (0.9-2.4); AST(SGOT) 32 U/L (15-37); Alanine Aminotransfer ALT/SGPT 19 U/L (13-56); Alkaline Phosphatase 81 U/L (45-117); Anion Gap 6 (5-15); BUN 32 mg/dL (7-18); BUN/Creat Ratio 16.8 RATIO (10-20); Calcium,Total 9.7 mg/dL (8.5-10.1); Chloride 106 mmol/L (98-107); Creatinine, Serum 1.91 mg/dL (0.55-1.02); EST Glomerular Filtration Rate 27 mL/min (>60); Est Glom Filt Rate - Afr Amer 33 mL/min (>60); Estimated Creatinine Clearance 23.99 ml/min; Globulin 3.6 g/dL (2.2-4.2); Glucose 107 mg/dL (74-106); Lipase 213 U/L (73-393); Potassium 4.5 mmol/L (3.5-5.1); Protein, Total 6.6 g/dL (6.4-8.2); Sodium Level 142 mmol/L (136-145)
[2020-07-14 22:00] VITALS: BP 130/69; PULSE 60; RESP 22; O2SAT 99
[2020-07-15] VITALS (14 sets, daily range): BP systolic 102–156; BP diastolic 43–84; PULSE 60–67; RESP 14–21; TEMP 36.6–36.9; O2SAT 92–100; BMI 30.1
--- NOTE | 2020-07-15 00:23 | HP.PCM_ITS ---
Problem List (1) Abdominal pain Status: Acute (2) Splenic infarct Status: Acute (3) Left upper quadrant abdominal pain Status: Acute (4) Presence of permanent cardiac pacemaker Status: Chronic (5) Sick sinus syndrome Status: Chronic (6) correction (current) use of anticoagulants Status: Chronic (7) Chronic renal insufficiency Status: Chronic (8) Chronic atrial fibrillation Status: Chronic (9) Diastolic congestive heart failure Status: Chronic Qualifiers: Heart failure chronicity: chronic Qualified Code(s): I50.32 - Chronic diastolic (congestive) heart failure (10) Paroxysmal atrial fibrillation Status: Chronic Comment: DCCV on 03/02/2019; (11) History of cardioversion Status: Chronic (12) Hypertension Status: Chronic Qualifiers: Hypertension type: essential hypertension Qualified Code(s): I10 - Essential (primary) hypertension (13) Atrial fibrillation Status: Chronic Qualifiers: Atrial fibrillation type: paroxysmal Qualified Code(s): I48.0 - Paroxysmal atrial fibrillation (14) CLL (chronic lymphocytic leukemia) Status: Chronic History of Present Illness Date of Admission: 07/15/20 Chief Complaint: left upper quadrant pain The patient is a 75 year old F with a significant history of Chronic Afib S/P cardioversion; adjustment bradycardia status post permanent pacemaker; and CLL who presents emergency department with dull left upper quadrant pain that radiates to her left shoulder. Her pain started 3 days before presentation. Her pain went away and came back on the day before presentation and stayed. She described the pain at the left shoulder as sharp with intensity of 7 out of 10. Breathing and coughing increases the pain at the left upper abdomen. Lying still without taking a deep breath or without coughing improves the pain. Three days before presentation she had a good bowel movement. However the day before presentation and on the day of presentation she had only minimal bowel movement. Abdomen and pelvis CT scan showed a low-density lesion in the tail of the pancreas which has increased in size compared to previous. Also there was a new low-density lesion within the superior posterior aspect of the spleen. Further there was retained fecal material throughout the colon. Patient was admitted on 06/30/2020 and discharged on 07/07/2020 for a junctional bradycardia and acute exacerbation of CHF. She had a pacemaker inserted on 07/06/2020. Before the pacemaker his Coumadin was stopped and restarted later on while outpatient. Past Medical History Past Medical History (Chronic Problems): Chronic Problems (Last Reviewed 07/15/20 @ 01:[address] 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 Johnny Romeo MD) Presence of permanent cardiac pacemaker (Chronic) Onset Date: ~07/06/20 Z95.0 Sick sinus syndrome (Chronic) I49.5 Hypertension (Chronic) I10 Atrial fibrillation (Chronic) I48.91 CLL (chronic lymphocytic leukemia) (Chronic) C91.10 Proteinuria R80.9 Chronic dizziness Kidney disease N28.9 Renal insufficiency N28.9 Nausea R11.0 Shingles B02.9 Shingles (herpes zoster) polyneuropathy B02.23 right arm Allergies erythromycin base [Erythromycin Base] Adverse Reaction (Intermediate, Verified 07/14/20 18:44) Unknown Penicillins Adverse Reaction (Intermediate, Verified 07/14/20 18:44) Rash Home Medications: Ambulatory Orders Medication Instructions Recorded Multivitamins,Therapeutic 1 tab PO DAILY 07/18/14 [Multivitamin] Allopurinol [Zyloprim] 100 mg PO DAILYCM 01/20/17 capsicum (cayenne) 450 mg capsule 450 mg PO DAILY cap 02/04/19 telmisartan 40 mg tablet 40 mg PO DAILY #1 tab 12/31/19 turmeric 400 mg capsule 800 mg PO DAILY cap 12/31/19 calcitriol 0.25 mcg capsule 0.25 mcg PO DAILY 06/30/20 coenzyme Q10 50 mg capsule 50 mg PO DAILY cap 06/30/20 magnesium oxide 500 mg tablet 1,000 mg PO DAILY tab 06/30/20 Guaifenesin [Mucinex] 1,200 mg PO DAILY 07/02/20 Atenolol [Tenormin (beta josh)] 25 mg PO DAILY #30 tab 07/07/20 furosemide 40 mg tablet 80 mg PO DAILY tab 07/12/20 potassium chloride 20 mEq 20 meq PO TID tab 07/12/20 tablet,extended release(part/cryst) warfarin 4 mg tablet 4 mg PO .COMPLEX #1 tab 07/12/20 Furosemide 40 mg PO DINNER 07/14/20 Surgical History: Surgical History (Last Reviewed 07/15/20 @ 05:[address] 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 Johnny Romeo MD) Mother Hypertension Heart disease Father Diabetes Myocardial infarction Review of Systems Constitutional: Denies: Chills, Fever, Weight Change HEENT: Denies: Head Aches, Sinus Congestion, Sinus Drainage Cardiovascular: Denies: Chest Pain, Palpitations Respiratory: Denies: Cough, Shortness of breath at rest, Sputum production Gastrointestinal: Reports: Abdominal Pain, Nausea - Chronic. Denies: Vomiting Genitourinary: Denies: Dysuria Musculoskeletal: Reports: Shoulder Pain. Denies: Joint Pain, Joint Tenderness Skin: Denies: Rash, Wounds Neurological: Denies: Numbness, Tingling, Focal weakness Psychiatric: Denies: Anxiety, Depression, Homicidal Ideations, Suicidal Ideations Hematologic/ Lymphatic: Denies: Easy Bruising, Easy Bleeding VTE Information - Inpt Only VTE Present on Admission: Yes - With probable splenic infarct VTE Mechan Device Prophylaxis: None VTE Pharm Prophylaxis ordered?: No Reason prophylaxis not ordered:: Treatment Not Indicated - On therapeutic treatment for A. fib and probable splenic infarct. Patient Problems: Active and Suspected Problems (Last Reviewed 07/15/20 @ 01:[address] Johnny Romeo MD) Splenic infarct (Acute) Left upper quadrant abdominal pain (Acute) Abdominal pain (Acute) - Physical Exam Vitals/I&O's: Vital Signs Temp Pulse Resp BP Pulse Ox 97.4 F L 60 22 H 130/69 H 99 07/14/20 18:41 07/14/20 22:00 07/14/20 22:00 07/14/20 22:00 07/14/20 22:00 Oxygen Delivery Method Room Air Weight: 88.451 kg Body Mass Index (BMI) 30.5 General: Alert, Oriented x3, Cooperative HEENT: Atraumatic, PERRLA, EOMI, Normocephalic Neck: Supple, No JVD, Negative Carotid Bruits Lungs: Clear to auscultation, Normal air movement, No rhonchi, No wheeze Cardiovascular: Regular rate, Normal S1, Normal S2, No murmurs Abdomen: Bowel Sounds Present, Soft, Non Tender Extremities: No edema, Capillary Refill Less than 3 Seconds Skin: No rashes, No breakdown Musculoskeletal: No Tenderness to Palpation of Joints or Extremities Neurological: Cranial nerves II-XII grossly intact Psych/Mental Status: Normal Affect, Appropriate Laboratory Results 07/14/20 20:40: Urine Color Yellow, Urine Clarity Clear, Urine pH 6.5, Ur Specific Harlan 1.010, Urine Protein 15 H, Urine Glucose (UA) Normal, Urine Ketones Negative, Urine Occult Blood 10 H, Urine Nitrite Negative, Urine Bilirubin Negative, Urine Urobilinogen Normal, Ur Leukocyte Esterase Negative, Urine RBC 0 SEEN, Urine WBC 0-5 SEEN, Ur Squamous Epith Cells 0-5 SEEN, Urine Bacteria 0 SEEN, Hyaline Casts 0-5 SEEN, Urine Mucus 0 SEEN 07/14/20 21:10: WBC 9.3, RBC 3.16 L, Hgb 10.6 L, Hct 33.5 L, MCV 106.0 H, MCH 33.5 H, MCHC 31.6 L, RDW Std Deviation 59.2 H, RDW Coeff of Jose 15.2 H, Plt Count 126 L, MPV 9.2, Immature Gran % (Auto) 0.200, Neut % (Auto) 24.4 L, Lymph % (Auto) 70.0 H, Gilliam % (Auto) 3.7, Eos % (Auto) 1.6, Baso % (Auto) 0.1, Absolute Neuts (auto) 2.3, Absolute Lymphs (auto) 6.50 H, Nucleated RBC % 0, Differential Comment SCANNED 07/14/20 21:10: Sodium 142, Potassium 4.5, Chloride 106, Carbon Dioxide 30.0, Anion Gap 6, BUN 32 H, Creatinine 1.91 H, Estim Creat Clear Calc 23.99, Est GFR (MDRD) Af Amer 33 L, Est GFR (MDRD) Non-Af 27 L, BUN/Creatinine Ratio 16.8, Glucose 107 H, Calcium 9.7, Total Bilirubin 0.50, AST 32, ALT 19, Alkaline Phosphatase 81, Total Protein 6.6, Albumin 3.0 L, Globulin 3.6, Albumin/Globulin Ratio 0.8 L, Lipase 213 07/14/20 21:10: PT 15.4 H, INR 1.3 Assessment/Plan All Active Problems (Last Reviewed 07/15/20 @ 01:[address] Johnny Romeo MD) Splenic infarct (Acute) Left upper quadrant abdominal pain (Acute) Abdominal pain (Acute) The patient is a 75 year old F with a significant history of Chronic Afib S/P cardioversion; adjustment bradycardia status post permanent pacemaker; and CLL who presents emergency department with dull left upper quadrant pain that radiates to her left shoulder; constipation; and found to have abdominal and pelvis CT scan finding of a low-density lesion in the tail of the pancreas which has increased in size compared to previous; and new low-density lesion within the superior posterior aspect of the spleen; retained fecal material throughout the colon as well as a subtherapeutic INR. Abdominal pain Differential diagnosis include acute splenic infarct;CLL progression; increasing pancreatic mass. Discussed with emergent department doctor who gave the patient escalated dose of Coumadin and started patient on heparin drip. Heparin drip continued. Daily PT/INR. MD to dose Coumadin based upon INR. PRN oxycodone and Tylenol ordered. Patient had a recent pacemaker placed. Will defer further imaging of abdomen to core sticker/oncologist. CKD stage IV Stable Abnormal chest CT Patient with no PE aneurysm or dissection. Patient with patchy groundglass opacity. No fever or symptoms of shortness of breath. Clinical monitoring. PPM Admit to PCU on telemetry. Constipation Scheduled MiraLAX and PRN Senokot S. DVT prophylaxis Placed on therapeutic dose of heparin to bridge Coumadin. Inpatient E&M: 90898 Init Hosp L3
--- NOTE | 2020-07-15 01:06 | ED.DCSUM_ITS ---
History of Present Illness Chief Complaint: Abd Pain Informant: Patient Onset: Yesterday Context: Gradual Onset Timing: Continuous Current Severity: Mild Maximum Severity: Moderate Narrative: Patient is a 75-year-old female with extensive past medical history including atrial fibrillation, CHF, CLL, chronic nausea and recent pacemaker placement for bradycardia presenting with pain in her left upper quadrant as well as her left anterior shoulder. Patient denies any injury. She states the pain is constant and sharp. It is mildly worse when she takes a deep breath denies change with position changes. She states she does have some mild shortness of breath associated with the pain. She has chronic nausea which is unchanged with denies any vomiting. She states her bowel moods been regular. She denies any black or bloody stools. Patient know she is been off her Coumadin for about 5days in anticipation of her pacemaker placement. She notes she is never had a symptoms like this before. She does have some mild peripheral edema which is actually improved for her. No associated chest pain. No other complaints at this time. Past Medical History - Allergies and Home Meds Allergies/Adverse Reactions: Allergies erythromycin base [Erythromycin Base] Adverse Reaction (Intermediate, Verified 07/14/20 18:44) Unknown Penicillins Adverse Reaction (Intermediate, Verified 07/14/20 18:44) Rash Primary Care Physician: Israel Bucio DO [Primary Care Provider] - Past Medical History: - - Sick sinus syndrome, atrial fibrillation, chronic renal insufficiency, CHF, hypertension, CLL Surgical History: appendectomy, cholecystectomy, hysterectomy, - Smoking Status: Never smoker Alcohol: None Drugs: None Review of Systems General: Denies: Chills, Fever, Sweats Eyes: Denies: Visual changes - bilaterally, Diplopia ENT: Denies: Rhinorrhea, Sore throat Cardiovascular: Denies: Chest pain, Palpitations Respiratory: Denies: Dyspnea, Cough, Dyspnea on exertion Gastrointestinal: Reports: Abdominal pain - Left upper quadrant, Nausea - Chronic. Denies: Vomiting, Diarrhea, Melena, Hematochezia Genitourinary: Denies: Dysuria, Hematuria, Frequency Musculoskeletal: Reports: Swelling - Peripheral edema, improved from baseline, Extremity Pain - Left anterior shoulder. Denies: Back pain Skin: Denies: Rash, Wounds Neurological: Denies: Headache, Weakness, Numbness Physical Exam Vital Signs/Narrative: Vital Signs Pulse Resp BP Pulse Ox 07/14/20 22:00 60 22 H 130/69 H 99 Inital Vital Signs reviewed: Yes General: Well nourished, Well developed, No Acute Distress Head: Normocephalic, Atraumatic Eyes: Perrl, EOMI ENT: Moist mucous membranes, No rhinorrhea Neck: Supple, Nontender, No JVD Cardiovascular: Regular rate, Regular rhythm, No murmurs Respiratory: No distress, CTA bilaterally, Chest nontender, - - Chest wall crepitus absent. Negative for: Diminished, Decreased Air Movement, Chest tenderness Abdomen: Soft, Nondistended, Normal bowel sounds, No masses, Tender - Mild ten derness to palpation in the left upper quadrant. Negative for: Guarding, Rebound tenderness Back: Nontender, Normal Inspection Extremities: Nontender, No edema, - - No reproducible tenderness of the left shoulder. Normal range of motion. No deformity. Skin: Normal color, No rash, - - Healing incision of right anterior chest wall from recent pacemaker placement Neurological: Alert, Oriented x3, Cranial nerves II-XII grossly intact, Normal Strength, Normal Sensation Psychological: Normal affect, Normal Mood Diagnostic/Tx/Re-eval Chest X-Ray - ED: Read by ED Physician Clinical Impression(s) from Imaging Studies Chest CTA 07/14/20 20:50 IMPRESSION: There is no aneurysm, dissection, or pulmonary embolism Cardiomegaly without evidence of right heart strain There are patchy groundglass opacity seen bilaterally most marked centrally this may be secondary to atypical pneumonitis edema or less likely hemorrhage. Correlate clinically No effusions are noted Chronic appearing compression deformity at T8. If patient has pain in this area consider MRI follow-up for further evaluation Individualized dose optimization techniques were used for this CT. at 2337 Reported and signed by: Leila Noriega DO Electronically Signed: Leila Noriega DO at 23:36 EDT Tel , Service support , Abdomen/Pelvis CT 07/14/20 20:51 IMPRESSION: Cholecystectomy Atrophic left kidney Right renal cyst similar to prior study Low-density lesion in the tail of pancreas that is increased in size when compared to the prior study. If this has not been evaluated and worked up then recommend MRI with pancreatic protocol for further evaluation. Findings also compatible with chronic pancreatitis similar to prior study There is a new low-density lesion within the superior posterior aspect of the spleen. This may represent a splenic infarction however there are other etiologies that can create this appearance. 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 Correlate clinically for constipation Individualized dose optimization techniques were used for this CT. at 2343 Reported and signed by: Leila Noriega DO Electronically Signed: Leila Noriega DO at 23:42 EDT Tel , Service support , ADDENDUM: 07/14/20 5847 IMPRESSION: Cholecystectomy Atrophic left kidney Right renal cyst similar to prior study Low-density lesion in the tail of pancreas that is increased in size when compared to the prior study. If this has not been evaluated and worked up then recommend MRI with pancreatic protocol for further evaluation. Findings also compatible with chronic pancreatitis similar to prior study There is a new low-density lesion within the superior posterior aspect of the spleen. This may represent a splenic infarction however there are other etiologies that can create this appearance. 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 Correlate clinically for constipation Individualized dose optimization techniques were used for this CT. at 2343 Reported and signed by: Leila Noriega DO N.B. : The above information has been verbally conveyed by Leila Noriega DO to Mesha Alfaro DO, on 07/14/2020 23:50:29 (ET). Electronically Signed: Leila Noriega DO at 23:42 EDT Tel , Service support , Laboratory Data 07/14/20 07/14/20 07/14/20 20:40 21:10 21:10 WBC 9.3 RBC 3.16 L Hgb 10.6 L Hct 33.5 L MCV 106.0 H MCH 33.5 H MCHC 31.6 L RDW Std Deviation 59.2 H RDW Coeff of Joes 15.2 H Plt Count 126 L MPV 9.2 Immature Gran % (Auto) 0.200 Neut % (Auto) 24.4 L Lymph % (Auto) 70.0 H Clinch % (Auto) 3.7 Eos % (Auto) 1.6 Baso % (Auto) 0.1 Absolute Neuts (auto) 2.3 Absolute Lymphs (auto) 6.50 H Nucleated RBC % 0 Differential Comment SCANNED PT INR Sodium 142 Potassium 4.5 Chloride 106 Carbon Dioxide 30.0 Anion Gap 6 BUN 32 H Creatinine 1.91 H Estim Creat Clear Calc 23.99 Est GFR (MDRD) Af Amer 33 L Est GFR (MDRD) Non-Af 27 L BUN/Creatinine Ratio 16.8 Glucose 107 H Calcium 9.7 Total Bilirubin 0.50 AST 32 ALT 19 Alkaline Phosphatase 81 Total Protein 6.6 Albumin 3.0 L Globulin 3.6 Albumin/Globulin Ratio 0.8 L Lipase 213 Urine Color Yellow Urine Clarity Clear Urine pH 6.5 Ur Specific [place] 1.010 Urine Protein 15 H Urine Glucose (UA) Normal Urine Ketones Negative Urine Occult Blood 10 H Urine Nitrite Negative Urine Bilirubin Negative Urine Urobilinogen Normal Ur Leukocyte Esterase Negative Urine RBC 0 SEEN Urine WBC 0-5 SEEN Ur Squamous Epith Cells 0-5 SEEN Urine Bacteria 0 SEEN Hyaline Casts 0-5 SEEN Urine Mucus 0 SEEN 07/14/20 21:10 WBC RBC Hgb Hct MCV MCH MCHC RDW Std Deviation RDW Coeff of Jose Plt Count MPV Immature Gran % (Auto) Neut % (Auto) Lymph % (Auto) Clinch % (Auto) Eos % (Auto) Baso % (Auto) Absolute Neuts (auto) Absolute Lymphs (auto) Nucleated RBC % Differential Comment PT 15.4 H INR 1.3 Sodium Potassium Chloride Carbon Dioxide Anion Gap BUN Creatinine Estim Creat Clear Calc Est GFR (MDRD) Af Amer Est GFR (MDRD) Non-Af BUN/Creatinine Ratio Glucose Calcium Total Bilirubin AST ALT Alkaline Phosphatase Total Protein Albumin Globulin Albumin/Globulin Ratio Lipase Urine Color Urine Clarity Urine pH Ur Specific [place] Urine Protein Urine Glucose (UA) Urine Ketones Urine Occult Blood Urine Nitrite Urine Bilirubin Urine Urobilinogen Ur Leukocyte Esterase Urine RBC Urine WBC Ur Squamous Epith Cells Urine Bacteria Hyaline Casts Urine Mucus - Rhythm Strip Rhythm Strip: paced Rate: 62 Ectopy: None - EKG Initial EKG Interpretation: Paced, - - Ventricular paced rhythm at a rate of 62 Patient is new compared to prior EKG - Medical Decision Making Patient is evaluated for atraumatic left upper quadrant abdominal pain as well as left shoulder pain. She is concerned because she just had a pacemaker placed earlier this week and is not sure if this is related. Patient declines pain medication in the ER on multiple occasions. She is hemodynamically stable in the ER. She does have elevation of her creatinine with this appears to be chronic. Her INR subtherapeutic at 1.3. Patient was off her Coumadin because of her pacemaker placement. CTA obtained because of concern for PE given her subtherapeutic status and recent hospitalization as well as mild shortness of breath. This shows a atypical groundglass opacities which is nonspecific. Patient does have history of CHF so this might be edema related. She does not have any upper respiratory symptoms consistent with infection at this time. Her CT of the abdomen shows questionable area of splenic infarct versus lymphoma. Given the patient has been on for anticoagulation and has acute onset of her pain I am concerned for infarct. She started on a heparin drip and I discussed with the hospitalist who request that we give her 8 mg of Coumadin tonight. In addition patient has low-density lesion of the pancreatic tail which will require further evaluation. Patient be admitted for further treatment and evaluation. She is hemodynamically stable in the emergency room. She is agreeable with this plan. ED Disposition - Plan for ED Patient: Disposition: Acute Care [facility] Diagnosis: Subtherapeutic international normalized ratio (INR), Splenic infarct, Left upper quadrant abdominal pain Referrals: Israel Bucio DO [Primary Care Provider] -
[2020-07-15] MEDS: Heparin Injection (Vial) 5,000 UNIT/ML VIAL 4000 UNIT IV (01:26)
[2020-07-15 01:34] LABS: Partial Thromboplast Time 30.4 Seconds (24.1-36.2)
[2020-07-15] MEDS: 0.9% Saline Lock 10 ML Syringe IV ×2 (06:18→15:25)
[2020-07-15] MEDS: Ondansetron 4 MG/2 ML Vial IV ×2 (06:18→15:25)
[2020-07-15 08:11] LABS: Absolute Lymphocyte Count 5.94 X10^3/uL (0.83-4.51); Absolute Neutrophil Count 1.5 X10^3/uL (2.0-7.7); Basophil# 0.01 X10^3/uL; Basophil% 0.1 % (0-1); Eosinophil# 0.16 X10^3/uL; Hemoglobin 9.9 g/dL (12.0-15.0); Lymphocyte # 5.94 X10^3/ul (4.0); Mean Corp Hgb Conc 31.9 g/dL (32-36); Mean Corpuscular Hgb 33.4 pg (27.0-32.0); Mean Corpuscular Volume 104.7 fL (81-99); Mean Platelet Vol. 9.2 fl (6.2-12.0); Monocyte# 0.25 X10^3/uL; Monocyte% 3.2 % (0-10); NRBC Flagged by Analyzer 0 % (0-5); Neutrophil # 1.45 X10^3/uL (2.7-7.7); Neutrophil % 18.6 % (47-70); POSITIVE DIFFERENTIAL YES; Platelet Count 116 K/mm3 (150-450); RBC Distribution Width CV 15.2 % (11.6-14.6); RBC Distribution Width SD 58.2 fl (35.1-43.9); Red Blood Count 2.96 M/mm3 (4.2-5.4); White Blood Count 7.8 K/mm3 (4.4-11.0)
[2020-07-15 08:13] LABS: Anion Gap 5 (5-15); BUN 30 mg/dL (7-18); BUN/Creat Ratio 16.9 RATIO (10-20); Calcium,Total 9.3 mg/dL (8.5-10.1); Chloride 107 mmol/L (98-107); Creatinine, Serum 1.77 mg/dL (0.55-1.02); EST Glomerular Filtration Rate 30 mL/min (>60); Est Glom Filt Rate - Afr Amer 36 mL/min (>60); Estimated Creatinine Clearance 25.88 ml/min; Glucose 109 mg/dL (74-106); Potassium 4.4 mmol/L (3.5-5.1); Sodium Level 142 mmol/L (136-145)
[2020-07-15 08:15] LABS: Differential Indicated SCAN CRITERIA MET
[2020-07-15 08:48] LABS: International Normalized Ratio 1.4
[2020-07-15 08:51] LABS: Partial Thromboplast Time 170.8 Seconds (24.1-36.2)
[2020-07-15] MEDS: Magnesium Chloride 64 MG Delay Rel.Tablet 128 MG PO ×2 (08:56→17:33)
[2020-07-15] MEDS: Multivitamins,Therapeutic Tablet 1 TABLET PO (08:56)
[2020-07-15] MEDS: Losartan Potassium 50 MG Tablet PO (08:57)
[2020-07-15] MEDS: Allopurinol 100 MG Tablet PO (08:57)
[2020-07-15] MEDS: Furosemide 80 MG Tablet PO (08:58)
[2020-07-15] MEDS: Calcitriol 0.25 MCG Capsule PO (08:58)
[2020-07-15] MEDS: Polyethylene Glycol 3350 17 GM PACKET PO (08:58)
[2020-07-15] MEDS: Atenolol 25 MG Tablet PO (08:59)
--- NOTE | 2020-07-15 09:06 | NURSING ---
stopped heparin at 0855
--- NOTE | 2020-07-15 11:49 | PCM.PN.HOSP ---
Patient Problems: Active and Suspected Problems (Last Reviewed 07/15/20 @ 05:[address] Johnny Romeo MD) Splenic infarct (Acute) Left upper quadrant abdominal pain (Acute) Abdominal pain (Acute) Reason for Visit: abdominal pain Subjective: Still with LUQ abdominal pain. Vitals/I&O's: Vital Signs Temp Pulse Resp BP Pulse Ox 36.7 C 60 16 103/61 96 07/15/20 08:03 07/15/20 08:03 07/15/20 08:03 07/15/20 08:03 07/15/20 08:03 Oxygen Delivery Method Room Air Weight: 87.2 kg Body Mass Index (BMI) 30.1 Intake and Output for Last 24 Hours 07/13/20 07/14/20 07/15/20 23:59 23:59 23:59 Intake Total 72.5 / 72.5 Balance 72.5 / 72.5 General: Alert, No apparent distress HEENT: Atraumatic, Normocephalic Oral: Moist Mucosa, No Gingival or Mucosal Lesions/ Ulcerations Neck: No Nodes, Thyroid Normal Size and Texture Psych/Mental Status: Normal Affect, Appropriate Laboratory Results 07/14/20 20:40: Urine Color Yellow, Urine Clarity Clear, Urine pH 6.5, Ur Specific [place] 1.010, Urine Protein 15 H, Urine Glucose (UA) Normal, Urine Ketones Negative, Urine Occult Blood 10 H, Urine Nitrite Negative, Urine Bilirubin Negative, Urine Urobilinogen Normal, Ur Leukocyte Esterase Negative, Urine RBC 0 SEEN, Urine WBC 0-5 SEEN, Ur Squamous Epith Cells 0-5 SEEN, Urine Bacteria 0 SEEN, Hyaline Casts 0-5 SEEN, Urine Mucus 0 SEEN 07/14/20 21:10: WBC 9.3, RBC 3.16 L, Hgb 10.6 L, Hct 33.5 L, MCV 106.0 H, MCH 33.5 H, MCHC 31.6 L, RDW Std Deviation 59.2 H, RDW Coeff of Jose 15.2 H, Plt Count 126 L, MPV 9.2, Immature Gran % (Auto) 0.200, Neut % (Auto) 24.4 L, Lymph % (Auto) 70.0 H, [place] % (Auto) 3.7, Eos % (Auto) 1.6, Baso % (Auto) 0.1, Absolute Neuts (auto) 2.3, Absolute Lymphs (auto) 6.50 H, Nucleated RBC % 0, Differential Comment SCANNED 07/14/20 21:10: Sodium 142, Potassium 4.5, Chloride 106, Carbon Dioxide 30.0, Anion Gap 6, BUN 32 H, Creatinine 1.91 H, Estim Creat Clear Calc 23.99, Est GFR (MDRD) Af Amer 33 L, Est GFR (MDRD) Non-Af 27 L, BUN/Creatinine Ratio 16.8, Glucose 107 H, Calcium 9.7, Total Bilirubin 0.50, AST 32, ALT 19, Alkaline Phosphatase 81, Total Protein 6.6, Albumin 3.0 L, Globulin 3.6, Albumin/Globulin Ratio 0.8 L, Lipase 213 07/14/20 21:10: PT 15.4 H, INR 1.3 07/14/20 21:10: APTT 30.4 07/15/20 07:50: WBC 7.8, RBC 2.96 L, Hgb 9.9 L, Hct 31.0 L, MCV 104.7 H, MCH 33.4 H, MCHC 31.9 L, RDW Std Deviation 58.2 H, RDW Coeff of Jose 15.2 H, Plt Count 116 L, MPV 9.2, Immature Gran % (Auto) 0.100, Neut % (Auto) 18.6 L, Lymph % (Auto) 76.0 H, [place] % (Auto) 3.2, Eos % (Auto) 2.0, Baso % (Auto) 0.1, Absolute Neuts (auto) 1.5 L, Absolute Lymphs (auto) 5.94 H, Nucleated RBC % 0, Differential Comment COMMENT 07/15/20 07:50: PT 17.0 H, INR 1.4 07/15/20 07:50: Sodium 142, Potassium 4.4, Chloride 107, Carbon Dioxide 30.0, Anion Gap 5, BUN 30 H, Creatinine 1.77 H, Estim Creat Clear Calc 25.88, Est GFR (MDRD) Af Amer 36 L, Est GFR (MDRD) Non-Af 30 L, BUN/Creatinine Ratio 16.9, Glucose 109 H, Calcium 9.3 07/15/20 07:50: APTT 170.8 H* Current Medications Acetaminophen (Tylenol) 650 mg PO Q6H PRN PRN PRN Reason: Pain Score 1-10/Temp > 100.7 F [facility] Last Admin: 07/15/20 08:57 Dose: 100 mg Documented by: Atenolol (Tenormin (Beta Paras)) 25 mg PO DAILY [facility] Last Admin: 07/15/20 08:59 Dose: 25 mg Documented by: Calcitriol (Rocaltrol) 0.25 mcg PO DAILY [facility] Last Admin: 07/15/20 08:58 Dose: 0.25 mcg Documented by: Furosemide (Lasix) 40 mg PO DINNER [facility] Furosemide (Lasix) 80 mg PO DAILY [facility] Last Admin: 07/15/20 08:58 Dose: 80 mg Documented by: Heparin Sodium (Porcine) (Heparin Na) 0 unit IV UD PRN; Protocol PRN Reason: PER PROTOCOL Heparin Sodium/Sodium Chloride () 25,000 unit in 250 mls @ 10 mls/hr IV .Q25H [facility]; Protocol Last Titration: 07/15/20 10:27 Dose: 7 mls/hr Documented by: Sodium Chloride () 250 mls @ 15 mls/hr IV .[id number] PRN PRN Reason: Saline Flush Sodium Chloride () 250 mls @ 15 mls/hr IV .[id number] PRN PRN Reason: Additional IVPB Infusion Losartan Potassium (Cozaar) 50 mg PO DAILY [facility] Last Admin: 07/15/20 08:57 Dose: 50 mg Documented by: Magnesium Chloride (Mag64) [facility] Last Admin: 07/15/20 08:56 Dose: 128 mg Documented by: Melatonin (Melatonin) 3 mg PO QHS PRN PRN PRN Reason: INSOMNIA Multivitamins (Multivitamin) [facility] Last Admin: 07/15/20 08:56 Dose: 1 tablet Documented by: Ondansetron HCl (Zofran) 4 mg IV Q8H PRN PRN PRN Reason: NAUSEA/VOMITING Last Admin: 07/15/20 06:18 Dose: 4 mg Documented by: Oxycodone HCl (Oxyir) 5 mg PO Q6H PRN PRN PRN Reason: Pain Score 4-10/10 Polyethylene Glycol (Miralax) 17 gm PO DAILY [facility] Last Admin: 07/15/20 08:58 Dose: 17 gm Documented by: Potassium Chloride (K-Dur) 20 meq PO TIDCM BUNNY Last Admin: 07/15/20 08:55 Dose: 20 meq Documented by: Senna/Docusate Sodium (Senokot-S, Jillian-Colace) 2 tablet PO BID PRN PRN PRN Reason: Constipation Sodium Chloride () 10 - 40 ml IV UD PRN PRN Reason: SALINE FLUSH Last Admin: 07/15/20 06:18 Dose: 20 ml Documented by: STROKE Vital Signs/Narrative: Vital Signs Temp Pulse Resp BP Pulse Ox 07/15/20 08:03 36.7 C 60 16 103/61 96 Medical Necessity - Tobacco Use Smoking Status: Never smoker Assessment/Plan All Active Problems (Last Reviewed 07/15/20 @ 05:[address] Johnny Romeo MD) Splenic infarct (Acute) Left upper quadrant abdominal pain (Acute) Abdominal pain (Acute) 1. abdominal pain suspect due splenic infarct. This may be feasible since patient was taken off of warfarin for pacemaker placement on hep gtt and warfarin pt has a pacemaker that is MRI compatible, however, placed 1 week ago. Pt cannot have an MRI until 6 weeks after placement. supportive mgmt 2. 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 CKD 3 stable avoid nephrotoxic agents 4. CLL mgmt per oncology 5. abnormal CT GGO noted no hypoxia no indication at this time for COVID-19 testing 6. VTE prophylaxis: anticoagulated. Greater than 35 minutes of which greater than 50% of time was discussing with the patient about the findings on the CAT scan and that the fact the patient may require a MRI in the future. Inpatient E&M: 97727 Subs Hosp L2
--- NOTE | 2020-07-15 14:52 | CASEMGMT ---
VASQUEZ CM Readmission Note Previous Admission: 06/30/20-07/07/20 Diagnosis: CHF DC Plan: Home, no needs identified. PCP F/U on dc: yes Prescriptions obtained on dc: yes Current Admission: subtherapeutic INR,abdominal pain, possible splenic infarct, CLL regression, increasing pancreatic mass. -Patient presented to ER with increasing abdominal pain LUQ radiating to left shoulder. CT showed lesion in tail of pancreas, increased in size and posterior aspect of spleen which may be splenic infarct. Oncology consult ordered. -Intro role of CM to patient who states she was doing well at home until increasing abdominal pain started. No new care needs at home and she plans to return home on discharge. Patient did say she was unclear re: coumadin dosing per her PCP office, therefore she had a few days she did not take her coumadin. VASQUEZ REY let her know clear instructions re: coumadin dose and INR f/u will be given on discharge. Pt is currently on heparin gtt for subtherapeutic INR. DC PLAN: Home on discharge. Rigo HAYNES RN ACM
[2020-07-15 15:14] LABS: Partial Thromboplast Time 101.9 Seconds (24.1-36.2)
[2020-07-15] MEDS: Furosemide 40 MG Tablet PO (17:33)
[2020-07-15 21:17] LABS: Partial Thromboplast Time 64.8 Seconds (24.1-36.2)
[2020-07-16] VITALS (13 sets, daily range): BP systolic 92–110; BP diastolic 52–66; PULSE 60–65; RESP 14–17; TEMP 36.5–36.9; O2SAT 95–99
[2020-07-16] MEDS: MELATONIN 3 MG TABLET PO ×2 (00:04→22:28)
[2020-07-16] MEDS: Acetaminophen 325 MG Tablet 650 MG PO ×3 (00:04→22:28)
[2020-07-16 03:15] LABS: Absolute Lymphocyte Count 3.93 X10^3/uL (0.83-4.51); Absolute Neutrophil Count 1.3 X10^3/uL (2.0-7.7); Basophil# 0.01 X10^3/uL; Basophil% 0.2 % (0-1); Eosinophil# 0.17 X10^3/uL; Hematocrit 30.8 % (37-47); Hemoglobin 9.7 g/dL (12.0-15.0); Lymphocyte # 3.93 X10^3/ul (4.0); Lymphocyte % 70.4 % (19-41); Mean Corp Hgb Conc 31.5 g/dL (32-36); Mean Corpuscular Hgb 33.6 pg (27.0-32.0); Mean Corpuscular Volume 106.6 fL (81-99); Mean Platelet Vol. 9.2 fl (6.2-12.0); Monocyte# 0.18 X10^3/uL; Monocyte% 3.2 % (0-10); NRBC Flagged by Analyzer 0 % (0-5); Neutrophil # 1.28 X10^3/uL (2.7-7.7); Platelet Count 109 K/mm3 (150-450); RBC Distribution Width CV 15.1 % (11.6-14.6); RBC Distribution Width SD 59.5 fl (35.1-43.9); Red Blood Count 2.89 M/mm3 (4.2-5.4); White Blood Count 5.6 K/mm3 (4.4-11.0)
[2020-07-16 03:25] LABS: Partial Thromboplast Time 72.7 Seconds (24.1-36.2)
[2020-07-16 03:32] LABS: Anion Gap 6 (5-15); BUN 33 mg/dL (7-18); BUN/Creat Ratio 16.3 RATIO (10-20); Calcium,Total 8.9 mg/dL (8.5-10.1); Chloride 105 mmol/L (98-107); Creatinine, Serum 2.03 mg/dL (0.55-1.02); EST Glomerular Filtration Rate 25 mL/min (>60); Est Glom Filt Rate - Afr Amer 31 mL/min (>60); Estimated Creatinine Clearance 22.57 ml/min; Glucose 109 mg/dL (74-106); Potassium 4.5 mmol/L (3.5-5.1); Sodium Level 141 mmol/L (136-145)
[2020-07-16 03:42] LABS: International Normalized Ratio 1.5; Prothrombin Time (Protime)PT. 17.4 SECONDS (11.7-14.9)
[2020-07-16] MEDS: 0.9% Saline Lock 10 ML Syringe IV (06:36)
[2020-07-16] MEDS: Ondansetron 4 MG/2 ML Vial IV (06:36)
[2020-07-16] MEDS: Multivitamins,Therapeutic Tablet 1 TABLET PO (08:57)
[2020-07-16] MEDS: Magnesium Chloride 64 MG Delay Rel.Tablet 128 MG PO ×2 (08:57→17:09)
[2020-07-16] MEDS: Polyethylene Glycol 3350 17 GM PACKET PO (08:58)
[2020-07-16] MEDS: Losartan Potassium 50 MG Tablet PO (08:58)
[2020-07-16] MEDS: Atenolol 25 MG Tablet PO (08:58)
[2020-07-16] MEDS: Calcitriol 0.25 MCG Capsule PO (08:58)
[2020-07-16] MEDS: Allopurinol 100 MG Tablet PO (08:58)
[2020-07-16] MEDS: Furosemide 80 MG Tablet PO (08:58)
--- NOTE | 2020-07-16 09:04 | PN_ITS ---
Patient Problems: Active and Suspected Problems (Last Reviewed 07/15/20 @ 05:[address] Johnny Romeo MD) Splenic infarct (Acute) Left upper quadrant abdominal pain (Acute) Abdominal pain (Acute) Reason for Visit: Splenic infarct. Subjective: Still with persistent LUQ and left shoulder pain. Previously stated she had chronic nausea, but clarified today that it is with car sickness and she takes meclizine, which alleviates it. This nausea is different and constant. Vitals/I&O's: Vital Signs Temp Pulse Resp BP Pulse Ox 36.6 C 60 17 103/61 98 07/16/20 08:29 07/16/20 08:29 07/16/20 08:29 07/16/20 08:29 07/16/20 08:29 Oxygen Delivery Method Room Air Weight: 87.2 kg Body Mass Index (BMI) 30.1 Intake and Output for Last 24 Hours 07/14/20 07/15/20 07/16/20 23:59 23:59 23:59 Intake Total 856.22 / 1096.22 456.25 / 456.25 Balance 856.22 / 1096.22 456.25 / 456.25 General: Alert, No apparent distress HEENT: Atraumatic, Normocephalic Oral: Moist Mucosa, No Gingival or Mucosal Lesions/ Ulcerations Neck: No Nodes, Thyroid Normal Size and Texture Lungs: Clear to auscultation, Normal air movement, No rhonchi, No wheeze, No rales Cardiovascular: Regular rate, Regular Rhythm, Normal S1, Normal S2, No murmurs Abdomen: Bowel Sounds Present, Soft, Non Tender, Non-Distended, No Hepato- splenomegaly Extremities: No edema, No Calf Tenderness Psych/Mental Status: Normal Affect, Appropriate Laboratory Results 07/15/20 14:25: APTT 101.9 H* 07/15/20 20:40: APTT 64.8 H 07/16/20 03:00: PT 17.4 H, INR 1.5 07/16/20 03:00: WBC 5.6, RBC 2.89 L, Hgb 9.7 L, Hct 30.8 L, MCV 106.6 H, MCH 33.6 H, MCHC 31.5 L, RDW Std Deviation 59.5 H, RDW Coeff of Jose 15.1 H, Plt Count 109 L, MPV 9.2, Immature Gran % (Auto) 0.200, Neut % (Auto) 23.0 L, Lymph % (Auto) 70.4 H, Sevier % (Auto) 3.2, Eos % (Auto) 3.0, Baso % (Auto) 0.2, Absolute Neuts (auto) 1.3 L, Absolute Lymphs (auto) 3.93, Nucleated RBC % 0 07/16/20 03:00: Sodium 141, Potassium 4.5, Chloride 105, Carbon Dioxide 30.0, Anion Gap 6, BUN 33 H, Creatinine 2.03 H, Estim Creat Clear Calc 22.57, Est GFR (MDRD) Af Amer 31 L, Est GFR (MDRD) Non-Af 25 L, BUN/Creatinine Ratio 16.3, Glucose 109 H, Calcium 8.9 07/16/20 03:00: APTT 72.7 H Current Medications Acetaminophen (Tylenol) 650 mg PO Q6H PRN PRN PRN Reason: Pain Score 1-10/Temp > 100.7 F Last Admin: 07/16/20 08:59 Dose: 650 mg Documented by: [facility]oprim) [facility] Last Admin: 07/16/20 08:58 Dose: 100 mg Documented by: Atenolol (Tenormin (Beta Paras)) 25 mg PO DAILY [facility] Last Admin: 07/16/20 08:58 Dose: 25 mg Documented by: Calcitriol (Rocaltrol) 0.25 mcg PO DAILY [facility] Last Admin: 07/16/20 08:58 Dose: 0.25 mcg Documented by: Furosemide (Lasix) 40 mg PO DINNER [facility] Last Admin: 07/15/20 17:33 Dose: 40 mg Documented by: Furosemide (Lasix) 80 mg PO DAILY [facility] Last Admin: 07/16/20 08:58 Dose: 80 mg Documented by: Heparin Sodium (Porcine) (Heparin Na) 0 unit IV UD PRN; Protocol PRN Reason: PER PROTOCOL Heparin Sodium/Sodium Chloride () 25,000 unit in 250 mls @ 10 mls/hr IV .Q25H BUNNY; Protocol Last Admin: 07/16/20 03:38 Dose: Not Given Documented by: Sodium Chloride () 250 mls @ 15 mls/hr IV .[id number] PRN PRN Reason: Saline Flush Sodium Chloride () 250 mls @ 15 mls/hr IV .[id number] PRN PRN Reason: Additional IVPB Infusion Losartan Potassium (Cozaar) 50 mg PO DAILY [facility] Last Admin: 07/16/20 08:58 Dose: 50 mg Documented by: Magnesium Chloride (Mag64) 128 mg [facility] Last Admin: 07/16/20 08:57 Dose: 128 mg Documented by: Melatonin (Melatonin) 3 mg PO QHS PRN PRN PRN Reason: INSOMNIA Last Admin: 07/16/20 00:04 Dose: 3 mg Documented by: Multivitamins (Multivitamin) [facility] tablet [facility] Last Admin: 07/16/20 08:57 Dose: 1 tablet Documented by: Ondansetron HCl (Zofran) 4 mg IV Q8H PRN PRN PRN Reason: NAUSEA/VOMITING Last Admin: 07/16/20 06:36 Dose: 4 mg Documented by: Oxycodone HCl (Oxyir) 5 mg PO Q4H PRN PRN PRN Reason: Pain Score 4-10/10 Polyethylene Glycol (Miralax) 17 gm PO DAILY [facility] Last Admin: 07/16/20 08:58 Dose: 17 gm Documented by: Potassium Chloride (K-Dur) [facility] Admin: 07/16/20 08:57 Dose: 20 meq Documented by: Senna/Docusate Sodium (Senokot-S, Jillian-Colace) 2 tablet PO BID PRN PRN PRN Reason: Constipation Sodium Chloride () 10 - 40 ml IV UD PRN PRN Reason: SALINE FLUSH Last Admin: 07/16/20 06:36 Dose: 10 ml Documented by: Warfarin Sodium (Jantoven) 8 mg PO SuFrSa@1700 [facility]; Protocol Warfarin Sodium (Jantoven) 10 mg PO MoTuWeTh@1700 [facility] STROKE Vital Signs/Narrative: Vital Signs Temp Pulse Resp BP Pulse Ox 07/16/20 08:29 36.6 C 60 17 103/61 98 07/16/20 07:35 95 07/16/20 07:04 60 07/16/20 06:00 36.5 C L 61 16 92/52 L 98 Medical Necessity - Tobacco Use Smoking Status: Never smoker Assessment/Plan All Active Problems (Last Reviewed 07/15/20 @ 05:[address] Johnny Romeo MD) Splenic infarct (Acute) Left upper quadrant abdominal pain (Acute) Abdominal pain (Acute) 1. abdominal pain * suspect due splenic infarct. This may be feasible since patient was taken off of warfarin for pacemaker placement * on hep gtt and warfarin * pt has a pacemaker that is MRI compatible, however, placed 1 week ago. Pt cannot have an MRI until 6 weeks after placement. * supportive mgmt 2. 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 CKD 3 * stable * avoid nephrotoxic agents 4. CLL * mgmt per oncology 5. abnormal CT * GGO noted * no hypoxia * no indication at this time for COVID-19 testing 6. VTE prophylaxis: anticoagulated. Inpatient E&M: [id number] Subs Hosp L2
[2020-07-16 09:54] LABS: Partial Thromboplast Time 50.4 Seconds (24.1-36.2)
[2020-07-16] MEDS: Pantoprazole Sodium 40 MG Tablet PO (11:23)
[2020-07-16 17:00] LABS: Partial Thromboplast Time 56.7 Seconds (24.1-36.2)
[2020-07-16] MEDS: Furosemide 40 MG Tablet PO (17:09)
[2020-07-16] MEDS: Senna/Docusate Sodium 1 Tablet 2 TABLET PO (17:10)
[2020-07-16 23:33] LABS: Partial Thromboplast Time 53.1 Seconds (24.1-36.2)
[2020-07-17] VITALS (13 sets, daily range): BP systolic 90–115; BP diastolic 53–63; PULSE 59–61; RESP 14–18; TEMP 36.4–36.8; O2SAT 92–100
[2020-07-17] MEDS: Acetaminophen 325 MG Tablet 650 MG PO ×2 (06:32→19:34)
[2020-07-17] MEDS: Ondansetron 4 MG/2 ML Vial IV ×2 (06:32→19:31)
[2020-07-17 06:34] LABS: International Normalized Ratio 1.5; Prothrombin Time (Protime)PT. 17.3 SECONDS (11.7-14.9)
[2020-07-17] MEDS: 0.9% Saline Lock 10 ML Syringe IV (06:34)
[2020-07-17 06:36] LABS: Partial Thromboplast Time 60.4 Seconds (24.1-36.2)
[2020-07-17] MEDS: Magnesium Chloride 64 MG Delay Rel.Tablet 128 MG PO ×2 (08:39→16:48)
[2020-07-17] MEDS: Allopurinol 100 MG Tablet PO (08:39)
[2020-07-17] MEDS: Multivitamins,Therapeutic Tablet 1 TABLET PO (08:39)
[2020-07-17] MEDS: Losartan Potassium 50 MG Tablet PO (09:56)
[2020-07-17] MEDS: Pantoprazole Sodium 40 MG Tablet PO (09:57)
[2020-07-17] MEDS: Calcitriol 0.25 MCG Capsule PO (09:58)
[2020-07-17] MEDS: Furosemide 80 MG Tablet PO (09:58)
[2020-07-17] MEDS: Polyethylene Glycol 3350 17 GM PACKET PO (09:58)
[2020-07-17] MEDS: Atenolol 25 MG Tablet PO (09:59)
--- NOTE | 2020-07-17 10:25 | ONC.CON.INP2 ---
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 Episode appears to have been precipitated by temporary interruption of her long-term systemic anticoagulation for atrial fibrillation to allow an elective replacement of her pacemaker on July 06. From the oncology consult aspect patient has: 1. Lesion of the tail of the pancreas first noted in 2017 and appears on the current CT of the abdomen to have increased in size. Patient on imaging has evidence for chronic pancreatitis, has a history of bouts of abdominal pain until the 1960s when she underwent an elective cholecystectomy and these pains since have resolved. 2. CLL in remission off therapy under the care of Dr Rivera. Past Medical History: Chronic Problems (Last Updated 07/17/20 @ 10:[address] 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) Chronic renal insufficiency (Chronic) Chronic atrial fibrillation (Chronic) Diastolic congestive heart failure (Chronic) Paroxysmal atrial fibrillation (Chronic) DCCV on 03/02/2019; History of cardioversion (Chronic 03/02/19) Hypertension (Chronic) Atrial fibrillation (Chronic) CLL (chronic lymphocytic leukemia) (Chronic) Past Medical/Surgical History: Past Medical History - Most Recent Inpatient Visit Past Medical History Start: 07/15/20 02:07 Text: Status: Complete Freq: ONCE Protocol: Document 07/15/20 02:12 BLB (Rec: 07/15/20 02:21 BLB [id number]) BMI Required to complete PMH What is Patient's BMI 30.1 Past Medical History Unable History Recalled Yes Query Text:Pt Unable/Family Not Present Neurologic Medical History Hx Stroke/TIA No Hx Dementia/Alzheimer's No Hx Parkinson's Disease No Hx Seizures No Hx Multiple Sclerosis No Hx Migraines No Cardiac Medical History VTE Present on Admission Yes: With probable splenic infarct Hx of Deep Vein Thrombosis/VTE/PE No Hx Hypertension Yes Hx Chest Pain/Angina No Hx Heart Attack No Hx Cardiac Surgery/Stents/Etc. No Hx Heart Failure Yes: CHF Hx Pacemaker/AICD Yes: 07/06/2020 Hx Irregular Heartbeat and/or Afib Yes Hx Anticoagulant Therapy Yes: COUMADIN Query Text:(Coumadin, Aspirin, Plavix, Xarelto, etc.) Hx Pain in Legs when Walking/Leg Cramps No Comments Dr. Salinas- Pacemaker Respiratory Medical History Hx COPD No Hx Emphysema No Hx Smoking No Smoking Status Never smoker Hx Smoking Exposure No Hx Tobacco Use in last 12 months No Hx of Pipe Smoking No Hx Sleep Apnea No Do you snore loudly (louder than talking No or can be heard through closed doors)? Do you often feel tired/ fatigued/ No sleepy during daytime? Has anyone observed you stop breathing No during sleep? STOP Results Negative GI Medical History Hx Ulcer No Hx Hepatitis No Hx Cirrhosis No Hx GI Bleed No Hx Unplanned Weight Loss No Genitourinary Medical History Indwelling Catheter in Place on Arrival/ No Admission Hx Renal Disease Yes Hx Dialysis No Musculoskeletal History Hx Arthritis No Hx Rheumatoid Arthritis No Endocrine Medical History Hx Diabetes No Hx Thyroid Disease No Hematologic Medical History Hx of Blood Transfusion No Hx of Transfusion in last 3 Months No Ever experience any problems with No transfusion(s)? Hx of Preganancy in last 3 Months N/A Nurse Filling Out Transfusion & BBECKER Questions: Date: 07/15/20 Time: 02:21 Psycho/Social Medical History Hx Depression No Hx Anxiety No Hx Behavior Disorder No Hx Alcohol Use No Hx Substance Use No Other Medical History Hx Blood Disorders Yes: cll Hx Anemia Yes Hx Cancer Yes: CLL Hx Drug Resistant Organism No Wound/Pressure Injury Present on Arrival Yes /Admission Query Text:If yes, chart assessment in Shift/Clinical Findings Central Line/PICC/VAD Present on Arrival No /Admission Antibiotics within last 7 days? No Methicillin Resistant Staphylococcus aureus Screening Active MRSA No Risk for Readmission Number of Risk Factors 4 At Risk for Readmission Patient is At Risk For Readmission Patient is eligible for Call Back Y Past Medical History (Last Updated 07/17/20 @ 10:[address] Silvio Gonzalez MD) Lesion of pancreas (Chronic) Presence of permanent cardiac pacemaker (Chronic ~07/06/20) Sick sinus syndrome (Chronic) Hypertension (Chronic) Atrial fibrillation (Chronic) CLL (chronic lymphocytic leukemia) (Chronic) Proteinuria (Acute) Chronic dizziness (Chronic) Kidney disease (Chronic) Renal insufficiency (Chronic) Nausea (Resolved) Shingles (Resolved) Shingles (herpes zoster) polyneuropathy (Resolved) Past Surgical History (Last Reviewed 07/15/20 @ 05:[address] Johnny Romeo MD) History of cardioversion (Chronic 03/02/19) History of cholecystectomy (Resolved) History of hysterectomy (Resolved) History of parathyroid surgery (Resolved) Maternal Family History: Family History (Last Reviewed 07/15/20 @ 05:[address] Johnny Romeo MD) Mother Hypertension Heart disease Father Diabetes Myocardial infarction - Social History Smoking Status: Never smoker Alcohol: None Drugs: None Allergies/Adverse Reactions: Allergy/AdvReac Type Severity Reaction Status Date / Time erythromycin base AdvReac Intermediate Unknown Verified 07/14/20 18:44 [Erythromycin Base] Penicillins AdvReac Intermediate Rash Verified 07/14/20 18:44 Review of Systems Constitutional:: Denies: Fever, Sweats, Weight loss, Appetite change, Chills Cardiovascular:: Denies: Chest pain, Palpitations, Dyspnea on exertion, Orthopnea, PND, Shortness of breath Respiratory: Denies: Cough, Hemoptysis, Shortness of Breath, Wheezing Gastrointestinal:: Reports: Abdominal pain - Left upper quadrant acute sharp is subsiding. Denies: Nausea, Vomiting, Diarrhea, Constipation, Hematochezia Genitourinary: Denies: Dysuria, Hematuria, 15, Flank pain Musculoskeletal:: Denies: Back pain, Myalgia, Arthralgia Skin: Denies: Rash, Skin Changes, Wounds Neurological:: Denies: Headache, Dizziness, Visual changes, Tinnitus, Hearing loss Psychiatric: Denies: Anxiety, Depression, Homicidal Ideations, Suicidal Ideations Vital Signs Temperature 97.6 F L 07/17/20 08:00 Temperature Source Oral 07/17/20 08:00 Pulse Rate 60 07/17/20 09:17 Pulse Strength Normal (2+) 07/17/20 09:03 Respiratory Rate 16 07/17/20 09:15 Respiratory Effort 07/17/20 09:15 Respiratory Depth Normal 07/17/20 09:15 Respiratory Pattern Normal 07/17/20 09:15 Blood Pressure 111/63 07/17/20 08:00 Blood Pressure Mean 79 07/17/20 08:00 Blood Pressure Source Monitor 07/17/20 08:00 Blood Pressure Position Semi-Fowlers 07/17/20 08:00 Blood Pressure Location Left Arm 07/17/20 08:00 Pulse Ox 98 07/17/20 09:15 Oxygen Delivery Method Room Air 07/17/20 09:17 - Physical Exam General: Alert, Oriented x3, No apparent distress, - - Obese, ECOG 1 HEENT: Atraumatic, PERRLA, EOMI, Normocephalic Oropharynx:: Dry mucosa Neck:: Supple, Trachea midline. Negative for: JVD, bilateral Cardiac:: Normal S1, Normal S2, Irregular rate, - - Pacemaker right subclavian fossa. Negative for: Murmur Lungs: Clear to auscultation, Excusion symmetrical. Negative for: Rhonchi, Wheezes Abdomen:: Soft, Non-tender, Non-distended Extremities:: Negative for: Cyanosis, Edema Neurological: Neuro grossly intact Skin:: Negative for: Lesions, Rash, Petechiae, Ecchymosis Psychiatric:: Appropriate affect, Euthymic Lymphatics:: Negative for: Cervical lymphadenopathy, Supraclavicular lymphadenopathy, Axillary lymphadenopathy Laboratory Data: Laboratory Tests 07/17/20 07/16/20 07/16/20 Range/Units 06:05 22:42 16:15 PT 17.3 H (11.7-14.9) SECONDS INR 1.5 APTT 60.4 H 53.1 H 56.7 H (24.1-36.2) Seconds Laboratory Tests 07/16/20 03:00 WBC 5.6 Hgb 9.7 L Hct 30.8 L MCV 106.6 H Plt Count 109 L Absolute Neuts (auto) 1.3 L Absolute Lymphs (auto) 3.93 Diagnostic Data: Diagnostic Data I personally reviewed patient's CT scan abdomen images of June 2020 and compared them with those of May [address] Cummins. The splenic infarct is new. There is a cystic lesion in the tail of the pancreas first noted in May 2018 and has mildly increased in size since with no solid component. The rest of the pancreas shows changes consistent with past episodes of pancreatitis. The patient is not a candidate for MRI of the abdomen due to the presence of a cardiac pacemaker Chest CTA 07/14/20 20:50 IMPRESSION: There is no aneurysm, dissection, or pulmonary embolism Cardiomegaly without evidence of right heart strain There are patchy groundglass opacity seen bilaterally most marked centrally this may be secondary to atypical pneumonitis edema or less likely hemorrhage. Correlate clinically No effusions are noted Chronic appearing compression deformity at T8. If patient has pain in this area consider MRI follow-up for further evaluation Individualized dose optimization techniques were used for this CT. at 2337 Reported and signed by: Leila Noriega DO Electronically Signed: Leila Noriega DO at 23:36 EDT Tel , Service support , Abdomen/Pelvis CT 07/14/20 20:51 IMPRESSION: Cholecystectomy Atrophic left kidney Right renal cyst similar to prior study Low-density lesion in the tail of pancreas that is increased in size when compared to the prior study. If this has not been evaluated and worked up then recommend MRI with pancreatic protocol for further evaluation. Findings also compatible with chronic pancreatitis similar to prior study There is a new low-density lesion within the superior posterior aspect of the spleen. This may represent a splenic infarction however there are other etiologies that can create this appearance. 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 Correlate clinically for constipation Individualized dose optimization techniques were used for this CT. at 2343 Reported and signed by: Leila Noriega DO Electronically Signed: Leila Noriega DO at 23:42 EDT Tel , Service support , ADDENDUM: 07/14/20 2357 IMPRESSION: Cholecystectomy Atrophic left kidney Right renal cyst similar to prior study Low-density lesion in the tail of pancreas that is increased in size when compared to the prior study. If this has not been evaluated and worked up then recommend MRI with pancreatic protocol for further evaluation. Findings also compatible with chronic pancreatitis similar to prior study There is a new low-density lesion within the superior posterior aspect of the spleen. This may represent a splenic infarction however there are other etiologies that can create this appearance. 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 Correlate clinically for constipation Individualized dose optimization techniques were used for this CT. at 2343 Reported and signed by: Leila Noriega DO N.B. : The above information has been verbally conveyed by Leila Noriega DO to Mesha Alfaro DO, on 07/14/2020 23:50:29 (ET). Electronically Signed: Leila Noriega DO at 23:42 EDT Tel , Service support , Assessment and Plan 75-year-old female hospitalized with acute abdominal pain due to splenic infarct following temporary interruption of her systemic anticoagulation for atrial fibrillation to allow insertion of a pacemaker. The patient is recovering from this episode without sequela. From the oncology aspect patient has: #1 A lesion in the tail of the pancreas, cystic, first noted May 2018, slightly larger on imaging June 2020. The lesion has no solid component to suggest a malignancy and no indication for attempts at biopsy at this time. #2 CLL in remission off systemic chemotherapy. #3 Continue to follow-up with . Impression and recommendation discussed with patient. Then I shared that impression with the patient's daughter as requested by the patient Nupur Melissa over the phone. Silvio Gonzalez MD Anesthesiologist Attending, [facility] Divisions of Medical Oncology & Hematology Department of Internal Medicine [place] [id number] This note was generated using a voice recognition system software. Although it was reviewed by the author prior to finalization, it may still contain incorrect words, spelling, and punctuation that were not noted when reviewing prior to saving. If a clinically significant typo or inaccurately typed phrase is noted, please notify the author. Medications: Prescriptions This Visit Medication Instructions Recorded Furosemide 40 mg PO DINNER 07/14/20 Medications Added to Medication List This Visit Category Date Time Status Warfarin [Octtoven] Med 07/17/20 17:00 Active 10 mg PO [id number] Primary Care Provider: Dr. sIrael Bucio DO Referring Provider:
[2020-07-17 12:29] LABS: Partial Thromboplast Time 60.5 Seconds (24.1-36.2)
--- NOTE | 2020-07-17 13:52 | CASEMGMT ---
Addendum entered by Joanne Nelson 07/17/20 15:06: SW explained documents to patient and her daughter Nupur. SW completed Healthcare Power of Abrading Machine Tender with patient. Copies were made and given to patient along with original. SW also placed a copy in her chart. Joanne KHALIL Original Note: RN indicated patient's daughter and patient would like to talk with SW about advance directives. SW stopped by the room and they confirmed patient would like to do the documents. SW left the documents in the room and SW told them SW will be back after a 2p meeting. Joanne KHALIL
--- NOTE | 2020-07-17 14:01 | PCM.PN.HOSP ---
Patient Problems: Active and Suspected Problems (Last Updated 07/17/20 @ 10:[address] Silvio Gonzalez MD) Splenic infarct (Acute) Left upper quadrant abdominal pain (Acute) Abdominal pain (Acute) Reason for Visit: splenic infarct Subjective: Still with LUQ pain and left shoulder pain. Constipated x 4 days. Vitals/I&O's: Vital Signs Temp Pulse Resp BP Pulse Ox 36.8 C 61 16 90/53 L 97 07/17/20 12:22 07/17/20 12:22 07/17/20 12:22 07/17/20 12:22 07/17/20 12:22 Oxygen Delivery Method Room Air Weight: 87.2 kg Body Mass Index (BMI) 30.1 Intake and Output for Last 24 Hours 07/15/20 07/16/20 07/17/20 23:59 23:59 23:59 Intake Total 856.22 / 1096.22 1270.03 / 1390.03 250.4 / 250.4 Balance 856.22 / 1096.22 1270.03 / 1390.03 250.4 / 250.4 General: Alert, No apparent distress HEENT: Atraumatic, Normocephalic Oral: Moist Mucosa, No Gingival or Mucosal Lesions/ Ulcerations Neck: No Nodes, Thyroid Normal Size and Texture Lungs: Clear to auscultation, Normal air movement, No rhonchi, No wheeze, No rales Cardiovascular: Regular rate, Regular Rhythm, Normal S1, Normal S2, No murmurs Abdomen: Bowel Sounds Present, Soft, Non Tender, Non-Distended, - - minimal LUQ tenderness Extremities: No edema, No Calf Tenderness Psych/Mental Status: Normal Affect, Appropriate Laboratory Results 07/16/20 16:15: APTT 56.7 H 07/16/20 22:42: APTT 53.1 H 07/17/20 06:05: PT 17.3 H, INR 1.5, APTT 60.4 H 07/17/20 12:05: APTT 60.5 H Current Medications Acetaminophen (Tylenol) 650 mg PO Q6H PRN PRN PRN Reason: Pain Score 1-10/Temp > 100.7 F Last Admin: 07/17/20 06:32 Dose: 650 mg Documented by: Allopurinol (Zyloprim) 100 mg PO DAILYCM [facility] Last Admin: 07/17/20 08:39 Dose: 100 mg Documented by: Atenolol (Tenormin (Beta Paras)) 25 mg PO DAILY [facility] Last Admin: 07/17/20 09:59 Dose: 25 mg Documented by: Bisacodyl (Dulcolax) 5 mg PO X1 ONE Stop: 07/17/20 14:01 Calcitriol (Rocaltrol) 0.25 mcg PO DAILY [facility] Last Admin: 07/17/20 09:58 Dose: 0.25 mcg Documented by: Furosemide (Lasix) 40 mg PO DINNER [facility] Last Admin: 07/16/20 17:09 Dose: 40 mg Documented by: Furosemide (Lasix) 80 mg PO DAILY [facility] Last Admin: 07/17/20 09:58 Dose: 80 mg Documented by: Heparin Sodium (Porcine) (Heparin Na) 0 unit IV UD PRN; Protocol PRN Reason: PER PROTOCOL Heparin Sodium/Sodium Chloride () 25,000 unit in 250 mls @ 10 mls/hr IV .Q25H [facility]; Protocol Last Titration: 07/17/20 13:04 Dose: 6 mls/hr Documented by: Sodium Chloride () 250 mls @ 15 mls/hr IV .[id number] PRN PRN Reason: Saline Flush Sodium Chloride () 250 mls @ 15 mls/hr IV .[id number] PRN PRN Reason: Additional IVPB Infusion Losartan Potassium (Cozaar) 50 mg PO DAILY [facility] Last Admin: 07/17/20 09:56 Dose: 50 mg Documented by: [facility] ([facility]) [facility] Admin: 07/17/20 08:39 Dose: 128 mg Documented by: Melatonin (Melatonin) 3 mg PO QHS PRN PRN PRN Reason: INSOMNIA Last Admin: 07/16/20 22:28 Dose: 3 mg Documented by: Multivitamins ([facility]ivitamin) [facility] Last Admin: 07/17/20 08:39 Dose: 1 tablet Documented by: Ondansetron HCl (Zofran) 4 mg IV Q8H PRN PRN PRN Reason: NAUSEA/VOMITING Last Admin: 07/17/20 06:32 Dose: 4 mg Documented by: Oxycodone HCl (Oxyir) 5 mg PO Q4H PRN PRN PRN Reason: Pain Score 4-10/10 Pantoprazole Sodium (Protonix) 40 mg PO DAILY [facility] Last Admin: 07/17/20 09:57 Dose: 40 mg Documented by: Polyethylene Glycol (Miralax) 17 gm PO DAILY [facility] Last Admin: 07/17/20 09:58 Dose: 17 gm Documented by: Potassium Chloride (K-Dur) 20 meq PO TIDCM [facility] Last Admin: 07/17/20 12:02 Dose: 20 meq Documented by: Senna/Docusate Sodium (Senokot-S, Jillian-Colace) 2 tablet PO BID PRN PRN PRN Reason: Constipation Last Admin: 07/16/20 17:10 Dose: 2 tablet Documented by: Sodium Chloride () 10 - 40 ml IV UD PRN PRN Reason: SALINE FLUSH Last Admin: 07/17/20 06:34 Dose: 10 ml Documented by: Warfarin Sodium (Jantoven) 8 mg PO SuFrSa@1700 [facility]; Protocol Last Admin: 07/16/20 17:09 Dose: 8 mg Documented by: Warfarin Sodium (Jantoven) 10 mg PO MoTuWeTh@1700 [facility] STROKE Vital Signs/Narrative: Vital Signs Temp Pulse Resp BP Pulse Ox 07/17/20 12:22 36.8 C 61 16 90/53 L 97 Medical Necessity - Tobacco Use Smoking Status: Never smoker Assessment/Plan All Active Problems (Last Updated 07/17/20 @ 10:[address] Silvio Gonzalez MD) Splenic infarct (Acute) Left upper quadrant abdominal pain (Acute) Abdominal pain (Acute) 1. suspected splenic infarct abdominal pain feeling better. on hep gtt and warfarin pt has a pacemaker that is MRI compatible, however, placed 1 week ago. Pt cannot have an MRI until 6 weeks after placement (may not be necessary). supportive mgmt will give an additional 2.5 mg today (total 12.5) 2. pancreatis mass chronic, but larger (present on CT from 05/2018) felt to be a cyst await oncology recs if biopsy needed, will need to stop warfarin 3. CKD 3 stable avoid nephrotoxic agents 4. CLL mgmt per oncology 5. abnormal CT GGO noted no hypoxia no indication at this time for COVID-19 testing 6. constipation on miralax add Dulcolax 7. VTE prophylaxis: anticoagulated. Inpatient E&M: 11016 Subs Hosp L2
[2020-07-17] MEDS: Bisacodyl 5 MG Tablet PO (15:35)
[2020-07-17] MEDS: Furosemide 40 MG Tablet PO (16:48)
[2020-07-18] VITALS (10 sets, daily range): BP systolic 95–117; BP diastolic 51–64; PULSE 60–75; RESP 15–18; TEMP 36.6–36.8; O2SAT 95–98
[2020-07-18 06:17] LABS: International Normalized Ratio 1.7; Prothrombin Time (Protime)PT. 19.2 SECONDS (11.7-14.9)
[2020-07-18] MEDS: Ondansetron 4 MG/2 ML Vial IV ×2 (06:18→20:14)
[2020-07-18] MEDS: Acetaminophen 325 MG Tablet 650 MG PO ×2 (06:18→21:53)
[2020-07-18 06:26] LABS: Partial Thromboplast Time 96.5 Seconds (24.1-36.2)
[2020-07-18] MEDS: Magnesium Chloride 64 MG Delay Rel.Tablet 128 MG PO ×2 (08:19→17:29)
[2020-07-18] MEDS: Multivitamins,Therapeutic Tablet 1 TABLET PO (08:19)
[2020-07-18] MEDS: Allopurinol 100 MG Tablet PO (08:19)
[2020-07-18] MEDS: Calcitriol 0.25 MCG Capsule PO (08:22)
[2020-07-18] MEDS: Pantoprazole Sodium 40 MG Tablet PO (08:23)
[2020-07-18] MEDS: Polyethylene Glycol 3350 17 GM PACKET PO (08:28)
[2020-07-18] MEDS: Atenolol 25 MG Tablet PO (08:28)
[2020-07-18] MEDS: Losartan Potassium 50 MG Tablet PO (08:28)
[2020-07-18] MEDS: Furosemide 80 MG Tablet PO (08:28)
--- NOTE | 2020-07-18 11:46 | PCM.PN.HOSP ---
<Danis Chatterjee - Last Filed: 07/18/20 11:46> Patient Problems: Active and Suspected Problems (Last Updated 07/17/20 @ 10:[address] Silvio Gonzalez MD) Splenic infarct (Acute) Left upper quadrant abdominal pain (Acute) Abdominal pain (Acute) Reason for Visit: Splenic infarct, embolic Subjective: No complaints. No SOB/cough, Mild LUQ abd pain, intermittent nausea improved with medication and dietary modification. No CP or palpitations Vitals/I&O's: Vital Signs Temp Pulse Resp BP Pulse Ox 97.9 F 60 15 117/53 L 98 07/18/20 08:26 07/18/20 08:26 07/18/20 08:26 07/18/20 08:26 07/18/20 08:26 Oxygen Delivery Method Room Air Weight: 192 lb 3.889 oz Body Mass Index (BMI) 30.1 Intake and Output for Last 24 Hours 07/16/20 07/17/20 07/18/20 23:59 23:59 23:59 Intake Total 1270.03 / 1390.03 528.5 / 528.5 Balance 1270.03 / 1390.03 528.5 / 528.5 General: Alert, Oriented x3, Cooperative HEENT: Atraumatic, PERRLA, EOMI, Normocephalic Neck: Supple, No JVD, Negative Carotid Bruits Lungs: Clear to auscultation, Normal air movement Cardiovascular: Regular rate, No murmurs Abdomen: Bowel Sounds Present, Soft, Non Tender Extremities: No edema, Capillary Refill Less than 3 Seconds Skin: No rashes, No breakdown Musculoskeletal: No Tenderness to Palpation of Joints or Extremities Neurological: Cranial nerves II-XII grossly intact Psych/Mental Status: Normal Affect, Appropriate, Alert and oriented to time, place, person, mood and affect Laboratory Results 07/17/20 12:05: APTT 60.5 H 07/17/20 18:25: APTT 59.0 H 07/18/20 06:00: PT 19.2 H, INR 1.7, APTT 96.5 H* Current Medications Acetaminophen (Tylenol) 650 mg PO Q6H PRN PRN PRN Reason: Pain Score 1-10/Temp > 100.7 F Last Admin: 07/18/20 06:18 Dose: 650 mg Documented by: [facility]) [facility] Last Admin: 07/18/20 08:19 Dose: 100 mg Documented by: Atenolol (Tenormin (Beta Paras)) 25 mg PO DAILY [facility] Last Admin: 07/18/20 08:28 Dose: 25 mg Documented by: Calcitriol (Rocaltrol) 0.25 mcg PO DAILY [facility] Last Admin: 07/18/20 08:22 Dose: 0.25 mcg Documented by: Furosemide (Lasix) 40 mg PO DINNER [facility] Last Admin: 07/17/20 16:48 Dose: 40 mg Documented by: Furosemide (Lasix) 80 mg PO DAILY [facility] Last Admin: 07/18/20 08:28 Dose: 80 mg Documented by: Heparin Sodium (Porcine) (Heparin Na) 0 unit IV UD PRN; Protocol PRN Reason: PER PROTOCOL Heparin Sodium/Sodium Chloride () 25,000 unit in 250 mls @ 10 mls/hr IV .Q25H [facility]; Protocol Last Titration: 07/18/20 06:35 Dose: 0 mls/hr Documented by: Sodium Chloride () 250 mls @ 15 mls/hr IV .[id number] PRN PRN Reason: Saline Flush Sodium Chloride () 250 mls @ 15 mls/hr IV .[id number] PRN PRN Reason: Additional IVPB Infusion Losartan Potassium (Cozaar) 50 mg PO DAILY [facility] Last Admin: 07/18/20 08:28 Dose: 50 mg Documented by: Magnesium Chloride (Mag64) [facility] Last Admin: 07/18/20 08:19 Dose: 128 mg Documented by: Melatonin (Melatonin) 3 mg PO QHS PRN PRN PRN Reason: INSOMNIA Last Admin: 07/16/20 22:28 Dose: 3 mg Documented by: Multivitamins (Multivitamin) [facility] Last Admin: 07/18/20 08:19 Dose: 1 tablet Documented by: Ondansetron HCl (Zofran) 4 mg IV Q8H PRN PRN PRN Reason: NAUSEA/VOMITING Last Admin: 07/18/20 06:18 Dose: 4 mg Documented by: Oxycodone HCl (Oxyir) 5 mg PO Q4H PRN PRN PRN Reason: Pain Score 4-10/10 Pantoprazole Sodium (Protonix) 40 mg PO DAILY [facility] Last Admin: 07/18/20 08:23 Dose: 40 mg Documented by: Polyethylene Glycol (Miralax) 17 gm PO DAILY [facility] Last Admin: 07/18/20 08:28 Dose: 17 gm Documented by: Potassium Chloride (K-Dur) 20 meq PO TIDCM [facility] Last Admin: 07/18/20 08:19 Dose: 20 meq Documented by: Senna/Docusate Sodium (Senokot-S, Jillian-Colace) 2 tablet PO BID PRN PRN PRN Reason: Constipation Last Admin: 07/16/20 17:10 Dose: 2 tablet Documented by: Sodium Chloride () 10 - 40 ml IV UD PRN PRN Reason: SALINE FLUSH Last Admin: 07/17/20 06:34 Dose: 10 ml Documented by: Warfarin Sodium (Jantoven) 8 mg PO SuFrSa@1700 [facility]; Protocol Last Admin: 07/16/20 17:09 Dose: 8 mg Documented by: Warfarin Sodium (Jantoven) 10 mg PO MoTuWeTh@1700 [facility] Last Admin: 07/17/20 16:47 Dose: 10 mg Documented by: STROKE Vital Signs/Narrative: Vital Signs Temp Pulse Resp BP Pulse Ox 07/18/20 08:26 97.9 F 60 15 117/53 L 98 Medical Necessity - Tobacco Use Smoking Status: Never smoker Assessment/Plan All Active Problems (Last Updated 07/17/20 @ 10:[address] Silvio Gonzalez MD) Splenic infarct (Acute) Left upper quadrant abdominal pain (Acute) Abdominal pain (Acute) 1. 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 Now on heparin drip waiting for INR to become therapeutic. LUQ and L shoulder pain improved. INR goal 2-3 2. Pancreatic lesion - per oncology unlikely to be cancerous, outpatient follow up. No solid component. No urgent need for bx. 3. Hx CLL - in remission. 4. Hx pAfib, sick sinus syndrome, junctional bradycardia s/p recent pacemaker placement - prior cardioversion. currently NSR. continue atenolol 5. Chronic diastolic CHF - no exacerbation DC planning: home when INR therapeutic This patient was seen by Danis Chatterjee PA-C under the supervision of Doctor Scout. <Gerhard Butterfield - Last Filed: 07/18/20 13:05> Vitals/I&O's: Vital Signs Temp Pulse Resp BP Pulse Ox 97.9 F 60 15 117/53 L 98 07/18/20 08:26 07/18/20 08:26 07/18/20 08:26 07/18/20 08:26 07/18/20 08:26 Oxygen Delivery Method Room Air Weight: 87.2 kg Body Mass Index (BMI) 30.1 Intake and Output for Last 24 Hours 07/16/20 07/17/20 07/18/20 23:59 23:59 23:59 Intake Total 1270.03 / 1390.03 528.5 / 528.5 867 / 867 Balance 1270.03 / 1390.03 528.5 / 528.5 867 / 867 Laboratory Results 07/17/20 18:25: APTT 59.0 H 07/18/20 06:00: PT 19.2 H, INR 1.7, APTT 96.5 H* 07/18/20 12:26: APTT Pending Current Medications Acetaminophen (Tylenol) 650 mg PO Q6H PRN PRN PRN Reason: Pain Score 1-10/Temp > 100.7 F Last Admin: 07/18/20 06:18 Dose: 650 mg Documented by: Allopurinol (Zyloprim) [facility] Last Admin: 07/18/20 08:19 Dose: 100 mg Documented by: Atenolol (Tenormin (Beta Paras)) 25 mg PO DAILY [facility] Last Admin: 07/18/20 08:28 Dose: 25 mg Documented by: Calcitriol (Rocaltrol) 0.25 mcg PO DAILY [facility] Last Admin: 07/18/20 08:22 Dose: 0.25 mcg Documented by: Furosemide (Lasix) 40 mg PO DINNER [facility] Last Admin: 07/17/20 16:48 Dose: 40 mg Documented by: Furosemide (Lasix) 80 mg PO DAILY [facility] Last Admin: 07/18/20 08:28 Dose: 80 mg Documented by: Heparin Sodium (Porcine) (Heparin Na) 0 unit IV UD PRN; Protocol PRN Reason: PER PROTOCOL Heparin Sodium/Sodium Chloride () 25,000 unit in 250 mls @ 10 mls/hr IV .Q25H [facility]; Protocol Last Titration: 07/18/20 06:35 Dose: 0 mls/hr Documented by: Sodium Chloride () 250 mls @ 15 mls/hr IV .[id number] PRN PRN Reason: Saline Flush Sodium Chloride () 250 mls @ 15 mls/hr IV .[id number] PRN PRN Reason: Additional IVPB Infusion Losartan Potassium (Cozaar) 50 mg PO DAILY [facility] Last Admin: 07/18/20 08:28 Dose: 50 mg Documented by: Magnesium Chloride (Mag64) [facility] Last Admin: 07/18/20 08:19 Dose: 128 mg Documented by: Melatonin (Melatonin) 3 mg PO QHS PRN PRN PRN Reason: INSOMNIA Last Admin: 07/16/20 22:28 Dose: 3 mg Documented by: Multivitamins (Multivitamin) [facility] Last Admin: 07/18/20 08:19 Dose: 1 tablet Documented by: Ondansetron HCl (Zofran) 4 mg IV Q8H PRN PRN PRN Reason: NAUSEA/VOMITING Last Admin: 07/18/20 06:18 Dose: 4 mg Documented by: Oxycodone HCl (Oxyir) 5 mg PO Q4H PRN PRN PRN Reason: Pain Score 4-10/10 Pantoprazole Sodium (Protonix) 40 mg PO DAILY [facility] Last Admin: 07/18/20 08:23 Dose: 40 mg Documented by: Polyethylene Glycol (Miralax) 17 gm PO DAILY [facility] Last Admin: 07/18/20 08:28 Dose: 17 gm Documented by: Potassium Chloride (K-Dur) 20 meq PO TIDCM [facility] Last Admin: 07/18/20 12:45 Dose: 20 meq Documented by: Senna/Docusate Sodium (Senokot-S, Jillian-Colace) 2 tablet PO BID PRN PRN PRN Reason: Constipation Last Admin: 07/16/20 17:10 Dose: 2 tablet Documented by: Sodium Chloride () 10 - 40 ml IV UD PRN PRN Reason: SALINE FLUSH Last Admin: 07/17/20 06:34 Dose: 10 ml Documented by: Warfarin Sodium (Jantoven) 8 mg PO SuFrSa@1700 [facility]; Protocol Last Admin: 07/16/20 17:09 Dose: 8 mg Documented by: Warfarin Sodium (Jantoven) 10 mg PO Ella@1700 [facility] Last Admin: 07/17/20 16:47 Dose: 10 mg Documented by: Assessment/Plan This patient was seen in conjunction with Danis Chatterjee PA-C . I have independently interviewed and examined the patient and reviewed pertinent historical, laboratory, and other data. Please refer to Danis Chatterjee PA-C note for details of this patient's presentation, findings, and recommendations. I have reviewed Danis Chatterjee PA-C note and concur with documented findings. In brief, patient 75-year-old lady with history of paroxysmal A. fib admitted with abdominal pain found to have splenic infarct Physical Examination: GENERAL: cooperative HEENT: Atraumatic; EYES; Anicteric, Normal Conjunctiva NECK; supple, normal thyroid, RESPIRATORY: Diminished to auscultation CARDIOVASCULAR: Regular S1 S2, GI: soft, normoactive bowel sounds, : No Renal angle tenderness; EXTREMITIES: No edema, no clubbing, MUSCULOSKELETAL: no muscle waisting NEURO: Awake; no lateralizing signs. SKIN: No Rash PSYCH; Flat affect Assessment: 1. Splenic infarct 2. Paroxysmal A. fib 3. Pancreatic tail lesion being followed by oncology 4. History of CLL 5. Chronic diastolic heart failure Recommendations: 1. I have discussed the results of my overview and impressions with the patient 2. Options for management were reviewed Inpatient E&M: 48153 [facility] Hosp L2
[2020-07-18 13:08] LABS: Partial Thromboplast Time 52.8 Seconds (24.1-36.2)
[2020-07-18] MEDS: Furosemide 40 MG Tablet PO (17:28)
[2020-07-18 21:45] LABS: Partial Thromboplast Time 60.6 Seconds (24.1-36.2)
[2020-07-19 03:02] VITALS: PULSE 60
[2020-07-19 03:48] LABS: Partial Thromboplast Time 73.7 Seconds (24.1-36.2)
[2020-07-19 03:56] LABS: International Normalized Ratio 1.9; Prothrombin Time (Protime)PT. 21.6 SECONDS (11.7-14.9)
[2020-07-19 04:10] VITALS: BP 105/49; PULSE 60; RESP 16; TEMP 36.6; O2SAT 100
[2020-07-19 07:00] VITALS: PULSE 60
[2020-07-19] MEDS: 0.9% Saline Lock 10 ML Syringe IV (07:56)
[2020-07-19] MEDS: Ondansetron 4 MG/2 ML Vial IV (07:56)
[2020-07-19 09:35] VITALS: BP 102/55; PULSE 64; RESP 18; TEMP 36.4; O2SAT 99
[2020-07-19] MEDS: Multivitamins,Therapeutic Tablet 1 TABLET PO (09:38)
[2020-07-19] MEDS: Atenolol 25 MG Tablet PO (09:38)
[2020-07-19] MEDS: Pantoprazole Sodium 40 MG Tablet PO (09:38)
[2020-07-19] MEDS: Calcitriol 0.25 MCG Capsule PO (09:38)
[2020-07-19] MEDS: Polyethylene Glycol 3350 17 GM PACKET PO (09:38)
[2020-07-19] MEDS: Losartan Potassium 50 MG Tablet PO (09:39)
[2020-07-19] MEDS: Magnesium Chloride 64 MG Delay Rel.Tablet 128 MG PO (09:39)
[2020-07-19] MEDS: Furosemide 80 MG Tablet PO (09:39)
[2020-07-19] MEDS: Allopurinol 100 MG Tablet PO (09:39)
--- NOTE | 2020-07-19 10:38 | PCM.DC ---
- Discharge Diagnoses Current Active Problems: Current Active and Chronic Problems (Last Updated 07/17/20 @ 10:[address] Silvio Gonzalez MD) Splenic infarct (Acute) Left upper quadrant abdominal pain (Acute) Abdominal pain (Acute) You will use the following diet at home:: Cardiac Your food should be the consistency of: Regular Your liquids should be the consistency of: Regular/Thin Discharge Activity: Return to Normal Activity Call your doctor if you observe: Shortness of breath, Chest pain, - - Increased abdominal pain Additional Instructions: Since you received Warfarin today prior to discharge, you do not need to take a dose at home today. You must have your INR checked tomorrow - do this at your follow up appointment with your sample body builder tomorrow. Allergies/Adverse Reactions: Allergies erythromycin base [Erythromycin Base] Adverse Reaction (Intermediate, Verified 07/14/20 18:44) Unknown Penicillins Adverse Reaction (Intermediate, Verified 07/14/20 18:44) Rash Medications to take at Discharge Multivitamins,Therapeutic [Multivitamin] 1 tab PO DAILY 07/18/14 Allopurinol [Zyloprim] 100 mg PO DAILYCM 01/20/17 telmisartan 40 mg tablet 40 mg PO DAILY #1 tab 12/31/19 calcitriol 0.25 mcg capsule 0.25 mcg PO DAILY 06/30/20 coenzyme Q10 50 mg capsule 50 mg PO DAILY cap 06/30/20 magnesium oxide 500 mg tablet 1,000 mg PO DAILY tab 06/30/20 Atenolol [Tenormin (beta josh)] 25 mg PO DAILY #30 tab 07/07/20 furosemide 40 mg tablet 80 mg PO DAILY tab 07/12/20 potassium chloride 20 mEq tablet,extended release(part/cryst) 20 meq PO TID tab 07/12/20 warfarin 4 mg tablet 4 mg PO .COMPLEX #1 tab 07/12/20 Furosemide 40 mg PO DINNER 07/14/20 Acetaminophen [Tylenol Tablet] 650 mg PO Q6H PRN PRN tab 07/19/20 Oxycodone [Oxyir] 5 mg PO Q6H PRN PRN 3 Days #12 tablet 07/19/20 Warfarin [Coumadin] 10 mg PO MoTuWeTh@1700 tab 07/19/20 The following prescriptions were given: Oxycodone [Oxyir] 5 mg PO Q6H PRN PRN 3 Days #12 tablet PRN Reason: Pain Score 6-10/10 Transmission Status: Sent to [facility] Primary Care Physician: Israel uBcio DO [Primary Care Provider] - Please follow up with your Primary Care Physician in: 1-2 weeks Test Results: Test results from this visit will be discussed in further detail at your follow-up appointment, if applicable. Please Follow Up With: Lloyd King MD When: 1 day Please Follow Up With: Johnny Rivera MD When: 2-3 weeks Proposed Discharge Date: 07/19/20
[2020-07-19 11:00] VITALS: PULSE 69
[2020-07-19 11:22] LABS: Partial Thromboplast Time 54.6 Seconds (24.1-36.2)
--- NOTE | 2020-07-19 11:31 | PHA.DC.MC ---
Pharmacy Service has performed discharge medication reconciliation and counseling for this patient. 1. OXYCODONE 5MG PO Q6H PRN PAIN 6-08/05 The patient's discharge medication list was reviewed for discrepancies and discrepancies were resolved. Home Medications Multivitamins,Therapeutic [Multivitamin] 1 tab PO DAILY 07/18/14 Allopurinol [Zyloprim] 100 mg PO DAILYCM 01/20/17 telmisartan 40 mg tablet 40 mg PO DAILY #1 tab 12/31/19 calcitriol 0.25 mcg capsule 0.25 mcg PO DAILY 06/30/20 coenzyme Q10 50 mg capsule 50 mg PO DAILY cap 06/30/20 magnesium oxide 500 mg tablet 1,000 mg PO DAILY tab 06/30/20 Atenolol [Tenormin (beta josh)] 25 mg PO DAILY #30 tab 07/07/20 furosemide 40 mg tablet 80 mg PO DAILY tab 07/12/20 potassium chloride 20 mEq tablet,extended release(part/cryst) 20 meq PO TID tab 07/12/20 warfarin 4 mg tablet 4 mg PO .COMPLEX #1 tab 07/12/20 Furosemide 40 mg PO DINNER 07/14/20 Acetaminophen [Tylenol Tablet] 650 mg PO Q6H PRN PRN tab 07/19/20 Oxycodone [Oxyir] 5 mg PO Q6H PRN PRN 3 Days #12 tab 07/19/20 Warfarin [Coumadin] 10 mg PO MoTuWeTh@1700 tab 07/19/20 The patient was counseled on the following discharge medications and changes in medications for homegoing were reviewed. The Reason for Use, instructions for use, and potential side effects were reviewed for all new medications. The patient's questions regarding all of their medications were answered. The patient was able to verbally demonstrate an understanding of their discharge medications. Patient was counseled by student assistant, Angelika.
--- NOTE | 2020-07-19 14:41 | DS.PCM_ITS ---
Discharge Date and Diagnosis - Problem List Patient Problems: Active and Suspected Problems (Last Updated 07/17/20 @ 10:[address] Silvio Gonzalez MD) Splenic infarct (Acute) Left upper quadrant abdominal pain (Acute) Abdominal pain (Acute) Date of Admission: 07/15/20 Date of Discharge: 07/19/20 - Primary Discharge Diagnosis Acute Problems: Active Problems (Last Updated 07/17/20 @ 10:[address] Silvio Gonzalez MD) Splenic infarct (Acute) 2/2 afib with subtherapeutic INR Pancreatic lesion thought to be benign CLL in remission - Secondary Discharge Diagnosis Chronic Problems: Chronic Problems (Last Updated 07/17/20 @ 10:[address] 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 If this has not been evaluated and worked up then recommend MRI with pancreatic protocol for further evaluation. Findings also compatible with chronic pancreatitis similar to prior study There is a new low-density lesion within the superior posterior aspect of the spleen. This may represent a splenic infarction however there are other etiologies that can create this appearance. 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 Correlate clinically for constipation Individualized dose optimization techniques were used for this CT. CT/CTA Chest W/WO Contrast IMPRESSION: There is no aneurysm, dissection, or pulmonary embolism Cardiomegaly without evidence of right heart strain There are patchy groundglass opacity seen bilaterally most marked centrally this may be secondary to atypical pneumonitis edema or less likely hemorrhage. Correlate clinically No effusions are noted Chronic appearing compression deformity at T8. If patient has pain in this area consider MRI follow-up for further evaluation Individualized dose optimization techniques were used for this CT. Consults: Oncology - Carlos Operations: None Procedures: None Summary of Care Provided: Hospital Course: The patient is a 75 year old F with pmhx of afib, SSS, junctional bradycardia, pacemaker placed earlier this month, prior pancreatic lesion, CLL in remission, who presented to the ER with LUQ abdominal pain. The patient had subtherapeutic INR at 1.[address] abdomen showed a splenic infarct. There was an unchanged pancreatic lesion. The patient was placed on heparin drip and admitted to the PCU for splenic infarct. Oncology was consulted and felt that the pancreatic mass did not have an appearance c/w an oncologic process. She was completed a heparin to coumadin bridge. She does not use other anticoagulants due to cost issues. She was discharged in stable condition. She has an appointment with her wire repairer Dr. King tomorrow at which she needs her INR checked. She will also need to follow up with her PCP in 1-2 weeks. She should follow up with oncology within a week. This patient was seen by Danis Chatterjee PA-C under the supervision of Doctor Galicia. [] Patient Problems: Active and Suspected Problems (Last Updated 07/17/20 @ 10:[address] Silvio Gonzalez MD) Splenic infarct (Acute) Left upper quadrant abdominal pain (Acute) Abdominal pain (Acute) - Physical Exam Vitals/I&O's: Vital Signs Temp Pulse Resp BP Pulse Ox 97.6 F L 69 18 102/55 L 99 07/19/20 09:35 07/19/20 11:00 07/19/20 09:35 07/19/20 09:35 07/19/20 09:35 Oxygen Delivery Method Room Air Weight: 192 lb 3.889 oz Body Mass Index (BMI) 30.1 Intake and Output for Last 24 Hours 07/17/20 07/18/20 07/19/20 23:59 23:59 23:59 Intake Total 528.5 / 528.5 1727.75 / 1727.75 422.40 / 422.40 Balance 528.5 / 528.5 1727.75 / 1727.75 422.40 / 422.40 General: Alert, Oriented x3, Cooperative HEENT: Atraumatic, PERRLA, EOMI, Normocephalic Neck: Supple, No JVD, Negative Carotid Bruits Lungs: Clear to auscultation, Normal air movement Cardiovascular: Regular rate, No murmurs Abdomen: Bowel Sounds Present, Soft, Non Tender Extremities: No edema, Capillary Refill Less than 3 Seconds Skin: No rashes, No breakdown Musculoskeletal: No Tenderness to Palpation of Joints or Extremities Neurological: Cranial nerves II-XII grossly intact Psych/Mental Status: Normal Affect, Appropriate, Alert and oriented to time, place, person, mood and affect Laboratory Results 07/18/20 21:27: APTT 60.6 H 07/19/20 03:32: PT Cancelled, INR Cancelled 07/19/20 03:32: PT 21.6 H, INR 1.9, APTT 73.7 H 07/19/20 10:25: APTT 54.6 H 07/19/20 14:25: PT Pending, INR Pending Current Medications Acetaminophen (Tylenol) 650 mg PO Q6H PRN PRN PRN Reason: Pain Score 1-10/Temp > 100.7 F Last Admin: 07/18/20 21:53 Dose: 650 mg Documented by: [facility] Last Admin: 07/19/20 09:39 Dose: 100 mg Documented by: Atenolol (Tenormin (Beta Paras)) 25 mg PO DAILY [facility] [place] Last Admin: 07/19/20 09:38 Dose: 25 mg Documented by: Calcitriol (Rocaltrol) 0.25 mcg PO DAILY [facility] Last Admin: 07/19/20 09:38 Dose: 0.25 mcg Documented by: Furosemide (Lasix) 40 mg PO DINNER [facility] [place] Last Admin: 07/18/20 17:28 Dose: 40 mg Documented by: Furosemide (Lasix) 80 mg PO DAILY [facility] [place] Last Admin: 07/19/20 09:39 Dose: 80 mg Documented by: Heparin Sodium (Porcine) (Heparin Na) 0 unit IV UD PRN; Protocol PRN Reason: PER PROTOCOL Heparin Sodium/Sodium Chloride () 25,000 unit in 250 mls @ 10 mls/hr IV .Q25H [facility] [place]; Protocol Last Titration: 07/19/20 11:26 Dose: 5 mls/hr Documented by: Sodium Chloride () 250 mls @ 15 mls/hr IV .[id number] PRN PRN Reason: Saline Flush Sodium Chloride () 250 mls @ 15 mls/hr IV .[id number] PRN PRN Reason: Additional IVPB Infusion Losartan Potassium (Cozaar) 50 mg PO DAILY [facility] [place] Last Admin: 07/19/20 09:39 Dose: 50 mg Documented by: Magnesium Chloride (Mag64) [facility] Last Admin: 07/19/20 09:39 Dose: 128 mg Documented by: Melatonin (Melatonin) 3 mg PO QHS PRN PRN PRN Reason: INSOMNIA Last Admin: 07/16/20 22:28 Dose: 3 mg Documented by: Multivitamins (Multivitamin) [facility] Last Admin: 07/19/20 09:38 Dose: 1 tablet Documented by: Ondansetron HCl (Zofran) 4 mg IV Q8H PRN PRN PRN Reason: NAUSEA/VOMITING Last Admin: 07/19/20 07:56 Dose: 4 mg Documented by: Oxycodone HCl (Oxyir) 5 mg PO Q4H PRN PRN PRN Reason: Pain Score 4-10/10 Pantoprazole Sodium (Protonix) 40 mg PO DAILY [facility] [place] Last Admin: 07/19/20 09:38 Dose: 40 mg Documented by: Polyethylene Glycol (Miralax) 17 gm PO DAILY [facility] [place] Last Admin: 07/19/20 09:38 Dose: 17 gm Documented by: Potassium Chloride (K-Dur) [facility] meq [facility] Last Admin: 07/19/20 11:23 Dose: 20 meq Documented by: Senna/Docusate Sodium (Senokot-S, Jillian-Colace) 2 tablet PO BID PRN PRN PRN Reason: Constipation Last Admin: 07/16/20 17:10 Dose: 2 tablet Documented by: Sodium Chloride () 10 - 40 ml IV UD PRN PRN Reason: SALINE FLUSH Last Admin: 07/19/20 07:56 Dose: 10 ml Documented by: Warfarin Sodium (Jantoven) 8 mg PO SuFrSa@1700 [facility]; Protocol Last Admin: 07/16/20 17:09 Dose: 8 mg Documented by: Warfarin Sodium (Jantoven) 10 mg PO MoTuWeTh@1700 [facility] Last Admin: 07/18/20 17:27 Dose: 10 mg Documented by: Discharge Diet: Low fat/ Low Cholesterol, 2000 mg Sodium Diet Discharge Activity: Return to Normal Activity Call your doctor if you observe: Shortness of breath, Chest pain, - - Increased abdominal pain Home Medications: Medications to take at Discharge Multivitamins,Therapeutic [Multivitamin] 1 tab PO DAILY 07/18/14 Allopurinol [Zyloprim] 100 mg PO DAILYCM 01/20/17 telmisartan 40 mg tablet 40 mg PO DAILY #1 tab 12/31/19 calcitriol 0.25 mcg capsule 0.25 mcg PO DAILY 06/30/20 coenzyme Q10 50 mg capsule 50 mg PO DAILY cap 06/30/20 magnesium oxide 500 mg tablet 1,000 mg PO DAILY tab 06/30/20 Atenolol [Tenormin (beta paras)] 25 mg PO DAILY #30 tab 07/07/20 furosemide 40 mg tablet 80 mg PO DAILY tab 07/12/20 potassium chloride 20 mEq tablet,extended release(part/cryst) 20 meq PO TID tab 07/12/20 warfarin 4 mg tablet 4 mg PO .COMPLEX #1 tab 07/12/20 Furosemide 40 mg PO DINNER 07/14/20 Acetaminophen [Tylenol Tablet] 650 mg PO Q6H PRN PRN tab 07/19/20 Oxycodone [Oxyir] 5 mg PO Q6H PRN PRN 3 Days #12 tab 07/19/20 Warfarin [Coumadin] 10 mg PO MoTuWeTh@1700 tab 07/19/20 Following Prescriptions Were Given to Patient: Oxycodone [Oxyir] 5 mg PO Q6H PRN PRN 3 Days #12 tab PRN Reason: Pain Score 6-10/10 Transmission Status: Received by [facility] Primary Care Physician: Israel Bucio DO [Primary Care Provider] - Please follow up with your Primary Care Physician in: 1-2 weeks Please Follow Up With: Lloyd King MD When: 1 day Please Follow Up With: Johnny Rivera MD When: 2-3 weeks Disposition: Home Minutes spent on discharge:: 35 Patient Condition:: Stable Medical Necessity - Tobacco Use Smoking Status: Never smoker Meaningful Use Info Meaningful Use Diagnoses (Choose all that apply): None applicable
[2020-07-19 14:58] LABS: Prothrombin Time (Protime)PT. 22.5 SECONDS (11.7-14.9)
[2020-07-19 15:35] VITALS: BP 102/55; PULSE 64; RESP 18; TEMP 36.4; O2SAT 99
--- NOTE | 2020-07-20 15:38 | CASEMGMT ---
VASQUEZ REY Discharge F/U phone call LACYulia: 13 Strata: 3 Discharge date: 07/19/2020 Call date: 07/20/2020 Call time: [id number] Admission dx: Abd pain Pt states has been 'feeling pretty good' since discharge. Pt states her pulse has been in the 70's and she thought her pacer was supposed to keep it at 60. Pt states she is not symptomatic at all and sees PCP tomorrow for f/u. Pt states no questions regarding discharge instructions or medications at this time. Pt states no suggestions for W[facility] at this time and states 'you all done very well.' Pt voices no further questions/concerns/needs at this time. SStaten VASQUEZ REY
== END 2020-07-19 16:26 | disposition home or self-care (01) | DRG 300 ==
LOC: ED 07-15 01:15 → PCU 07-15 01:22
PROVIDERS: Family Medicine; Physician Assistant; Admitting Provider Hospitalist; Emergency Provider Emergency Medicine; PCP Family Medicine; Visit Provider Internal Medicine
DX: I74.8 Embolism and thrombosis of other arteries (principal); I50.32 Chronic diastolic (congestive) heart failure; C91.11 Chronic lymphocytic leukemia of B-cell type in remission; N18.4 Chronic kidney disease, stage 4 (severe); I13.0 Hypertensive heart and chronic kidney disease with heart failure and stage 1 through stage 4 chronic kidney disease, or unspecified chronic kidney disease; K86.1 Other chronic pancreatitis; I48.0 Paroxysmal atrial fibrillation; Z23 Encounter for immunization; K59.00 Constipation, unspecified; K86.9 Disease of pancreas, unspecified; Z95.0 Presence of cardiac pacemaker; R79.1 Abnormal coagulation profile; Z79.01 Long term (current) use of anticoagulants
CPT/HCPCS: 36415; 71275; 74177; 80048; 80053; 81001; 83690; 85025; 85610; 85730; 93005; 99284; G0008; Q9967; 90686; A4216; J2405

== ENCOUNTER 2020-07-21 09:50 | Outpatient (RCR) | payer MEDICARE, OTHER, SELFPAY ==
[2020-03-06 12:59] VITALS: BMI 32.1
[2020-07-15 02:07] VITALS: BMI 30.1
[2020-07-21 10:22] LABS: International Normalized Ratio 2.5; Prothrombin Time (Protime)PT. 26.3 SECONDS (11.7-14.9)
== END 2020-07-26 23:59 ==
LOC: PAVLAB 09:50
PROVIDERS: Family Provider Family Medicine; PCP Family Medicine; Referring Provider Internal Medicine Cardiovascular Disease; Visit Provider Internal Medicine Cardiovascular Disease
DX: I48.0 Paroxysmal atrial fibrillation (principal); Z79.01 Long term (current) use of anticoagulants; I48.91 Unspecified atrial fibrillation; I48.20 Chronic atrial fibrillation, unspecified
CPT/HCPCS: 36415; 85610

== ENCOUNTER 2020-08-23 10:23 | Outpatient (RCR) | payer MEDICARE, OTHER, SELFPAY ==
[2020-07-28 16:28] LABS: Prothrombin Time (Protime)PT. 36.2 SECONDS (11.7-14.9)
[2020-07-28 16:40] LABS: International Normalized Ratio 3.7
[2020-07-31 10:02] LABS: Absolute Lymphocyte Count 4.13 X10^3/uL (0.83-4.51); Basophil# 0.03 X10^3/uL; Basophil% 0.5 % (0-1); Eosinophil# 0.13 X10^3/uL; Eosinophils% 2.3 % (0-5); Hematocrit 33.7 % (37-47); Hemoglobin 10.7 g/dL (12.0-15.0); Lymphocyte # 4.13 X10^3/ul (4.0); Lymphocyte % 74.3 % (19-41); Mean Corp Hgb Conc 31.8 g/dL (32-36); Mean Corpuscular Hgb 33.3 pg (27.0-32.0); Mean Platelet Vol. 8.7 fl (6.2-12.0); Monocyte# 0.22 X10^3/uL; NRBC Flagged by Analyzer 0 % (0-5); Neutrophil # 1.04 X10^3/uL (2.7-7.7); Neutrophil % 18.7 % (47-70); Platelet Count 111 K/mm3 (150-450); RBC Distribution Width CV 14.9 % (11.6-14.6); RBC Distribution Width SD 57.3 fl (35.1-43.9); Red Blood Count 3.21 M/mm3 (4.2-5.4); White Blood Count 5.6 K/mm3 (4.4-11.0)
[2020-07-31 10:09] LABS: Prothrombin Time (Protime)PT. 22.1 SECONDS (11.7-14.9)
[2020-08-23 10:50] LABS: Prothrombin Time (Protime)PT. 38.6 SECONDS (11.7-14.9)
== END 2020-08-26 23:59 ==
LOC: PAVLAB 10:23
PROVIDERS: Nurse Practitioner Family; Family Provider Family Medicine; PCP Family Medicine; Referring Provider Internal Medicine Cardiovascular Disease; Visit Provider Internal Medicine Cardiovascular Disease
DX: I48.0 Paroxysmal atrial fibrillation (principal); Z79.01 Long term (current) use of anticoagulants
CPT/HCPCS: 36415; 85025; 85610

== ENCOUNTER 2020-09-15 08:34 | Outpatient (RCR) | payer MEDICARE, OTHER, SELFPAY ==
[2020-08-28 11:13] LABS: Prothrombin Time (Protime)PT. 44.4 SECONDS (11.7-14.9)
[2020-08-28 11:17] LABS: International Normalized Ratio 4.7
[2020-08-30 10:22] LABS: International Normalized Ratio 3.2
[2020-09-06 11:20] LABS: Prothrombin Time (Protime)PT. 30.9 SECONDS (11.7-14.9)
[2020-09-15 09:03] LABS: International Normalized Ratio 3.1; Prothrombin Time (Protime)PT. 31.7 SECONDS (11.7-14.9)
== END 2020-09-25 23:59 ==
LOC: PAVLAB 08:34
PROVIDERS: Family Provider Family Medicine; PCP Family Medicine; Referring Provider Internal Medicine Cardiovascular Disease; Visit Provider Internal Medicine Cardiovascular Disease
DX: I48.0 Paroxysmal atrial fibrillation (principal); Z79.01 Long term (current) use of anticoagulants
CPT/HCPCS: 36415; 85610

== ENCOUNTER 2020-09-29 09:56 | Outpatient (RCR) | payer MEDICARE, OTHER, SELFPAY ==
[2020-09-29 10:27] LABS: International Normalized Ratio 2.5; Prothrombin Time (Protime)PT. 26.1 SECONDS (11.7-14.9)
== END 2020-10-26 23:59 ==
LOC: PAVLAB 09:56
PROVIDERS: Family Provider Family Medicine; PCP Family Medicine; Referring Provider Internal Medicine Cardiovascular Disease; Visit Provider Internal Medicine Cardiovascular Disease
DX: I48.0 Paroxysmal atrial fibrillation (principal); Z79.01 Long term (current) use of anticoagulants
CPT/HCPCS: 36415; 85610

== ENCOUNTER 2020-11-20 10:13 | Outpatient (RCR) | payer MEDICARE, OTHER, SELFPAY ==
[2020-10-30 11:19] LABS: Hematocrit 33.4 % (37-47); Hemoglobin 10.9 g/dL (12.0-15.0); Mean Corp Hgb Conc 32.6 g/dL (32-36); Mean Corpuscular Hgb 33.3 pg (27.0-32.0); Mean Corpuscular Volume 102.1 fL (81-99); Mean Platelet Vol. 9.1 fl (6.2-12.0); Platelet Count 179 K/mm3 (150-450); RBC Distribution Width CV 14.9 % (11.6-14.6); RBC Distribution Width SD 54.4 fl (35.1-43.9); Red Blood Count 3.27 M/mm3 (4.2-5.4); White Blood Count 10.9 K/mm3 (4.4-11.0)
[2020-10-30 11:29] LABS: Prothrombin Time (Protime)PT. 46.4 SECONDS (11.7-14.9)
[2020-10-30 11:42] LABS: BUN 44 mg/dL (7-18); Chloride 103 mmol/L (98-107); Creatinine, Serum 1.91 mg/dL (0.55-1.02); EST Glomerular Filtration Rate 27 mL/min (>60); Est Glom Filt Rate - Afr Amer 33 mL/min (>60); Glucose 115 mg/dL (74-106); Phosphorus 3.5 mg/dL (2.5-4.9); Potassium 4.2 mmol/L (3.5-5.1); Sodium Level 140 mmol/L (136-145)
[2020-10-30 11:43] LABS: PTHIN 64.5 pg/mL (18.4-80.1)
[2020-10-30 11:44] LABS: Protein, Urine (Random) 11.3 mg/dL (<11.9); Protein:Creat Ratio 193 mg/g CRE (0-200)
[2020-11-01 09:42] LABS: International Normalized Ratio 3.4; Prothrombin Time (Protime)PT. 34.4 SECONDS (11.7-14.9)
[2020-11-01 10:18] LABS: Vitamin D,25 Hydroxy 60.5 ng/mL
[2020-11-08 10:41] LABS: International Normalized Ratio 2.7; Prothrombin Time (Protime)PT. 28.5 SECONDS (11.7-14.9)
[2020-11-15 10:32] LABS: International Normalized Ratio 3.4; Prothrombin Time (Protime)PT. 33.7 SECONDS (11.7-14.9)
[2020-11-20 10:34] LABS: International Normalized Ratio 2.8; Prothrombin Time (Protime)PT. 29.1 SECONDS (11.7-14.9)
== END 2020-11-26 23:59 ==
LOC: PAVLAB 10:13
PROVIDERS: Family Provider Family Medicine; PCP Family Medicine; Referring Provider Internal Medicine Cardiovascular Disease; Visit Provider Internal Medicine Cardiovascular Disease
DX: I48.0 Paroxysmal atrial fibrillation (principal); Z79.01 Long term (current) use of anticoagulants; N18.30 Chronic kidney disease, stage 3 unspecified; D63.1 Anemia in chronic kidney disease; N25.81 Secondary hyperparathyroidism of renal origin
CPT/HCPCS: 36415; 80069; 82306; 82570; 83970; 84156; 85027; 85610

== ENCOUNTER 2020-12-04 08:55 | Outpatient (RCR) | payer MEDICARE, OTHER, SELFPAY ==
[2020-12-04 09:20] LABS: International Normalized Ratio 2.7
== END 2020-12-24 23:59 ==
LOC: PAVLAB 08:55
PROVIDERS: Family Provider Family Medicine; PCP Family Medicine; Referring Provider Internal Medicine Cardiovascular Disease; Visit Provider Internal Medicine Cardiovascular Disease
DX: I48.0 Paroxysmal atrial fibrillation (principal); Z79.01 Long term (current) use of anticoagulants
CPT/HCPCS: 36415; 85610

== ENCOUNTER 2021-01-15 09:48 | Outpatient (RCR) | payer MEDICARE, OTHER, SELFPAY ==
[2020-12-04 09:44] VITALS: BMI 28.5
[2021-01-01 10:42] LABS: International Normalized Ratio 1.6; Prothrombin Time (Protime)PT. 18.1 SECONDS (11.7-14.9)
[2021-01-08 11:15] LABS: International Normalized Ratio 1.8; Prothrombin Time (Protime)PT. 20.2 SECONDS (11.7-14.9)
[2021-01-15 10:16] LABS: International Normalized Ratio 2.1; Prothrombin Time (Protime)PT. 22.8 SECONDS (11.7-14.9)
== END 2021-01-24 23:59 ==
LOC: PAVLAB 09:48
PROVIDERS: Family Provider Family Medicine; PCP Family Medicine; Referring Provider Internal Medicine Cardiovascular Disease; Visit Provider Internal Medicine Cardiovascular Disease
DX: I48.0 Paroxysmal atrial fibrillation (principal); Z79.01 Long term (current) use of anticoagulants
CPT/HCPCS: 36415; 85610

== ENCOUNTER 2021-02-19 09:39 | Outpatient (RCR) | payer MEDICARE, OTHER, SELFPAY ==
[2020-12-04 09:44] VITALS: BMI 28.5
[2021-01-31 13:39] VITALS: BMI 29.6
[2021-02-19 10:09] LABS: International Normalized Ratio 2.4; Prothrombin Time (Protime)PT. 25.5 SECONDS (11.7-14.9)
== END 2021-02-23 23:59 ==
LOC: PAVLAB 09:39
PROVIDERS: Family Provider Family Medicine; PCP Family Medicine; Referring Provider Internal Medicine Cardiovascular Disease; Visit Provider Internal Medicine Cardiovascular Disease
DX: I48.0 Paroxysmal atrial fibrillation (principal); Z79.01 Long term (current) use of anticoagulants
CPT/HCPCS: 36415; 85610

== ENCOUNTER 2021-03-19 09:51 | Outpatient (RCR) | payer MEDICARE, OTHER, SELFPAY ==
[2021-01-31 13:39] VITALS: BMI 29.6
[2021-03-19 10:14] LABS: International Normalized Ratio 2.3; Prothrombin Time (Protime)PT. 24.3 SECONDS (11.7-14.9)
== END 2021-03-26 23:59 ==
LOC: PAVLAB 09:51
PROVIDERS: Family Provider Family Medicine; PCP Family Medicine; Referring Provider Internal Medicine Cardiovascular Disease; Visit Provider Internal Medicine Cardiovascular Disease
DX: I48.0 Paroxysmal atrial fibrillation (principal); Z79.01 Long term (current) use of anticoagulants
CPT/HCPCS: 36415; 85610

== ENCOUNTER → 2021-04-20 10:39 | Outpatient (CLI) | payer MEDICARE, OTHER, SELFPAY ==
[2021-01-31 13:39] VITALS: BMI 29.6
--- NOTE | 2021-04-20 10:40 | ECHOD_ITS ---
Reason For Study: CHF Procedure This was a 2D Doppler, Color Flow transthoracic echocardiogram. The study was technically difficult. Exam performed in department. Left Ventricle Normal LV size. Left ventricular systolic function is normal. The estimated ejection fraction is 60 %. No regional wall motion abnormalities noted. Right Ventricle Normal RV size. ICD or pacer leads identified within the right ventricle. Normal systolic function. Atria The left atrium is severely enlarged. The right atrium is mildly enlarged. ICD or pacer leads identified within the right atrium. No doppler evidence for ASD. Mitral Valve There is mild mitral annular calcification. The mitral valve chordae are thickened and/or calcified. Moderate (2+) eccentric mitral valve insufficiency. Tricuspid Valve Normal tricuspid valve. Moderate (2+) eccentric tricuspid valve insufficiency. Right ventricular systolic pressure estimated to be 25 mmHg. Aortic Valve Trisinus/trileaflet aortic valve. Mild diffuse aortic valve thickening. Moderate focal aortic valve calcification. Pulmonic Valve The pulmonic valve is not well visualized. Trivial pulmonic valve insufficiency. Great Vessels Normal sized aortic root. Pericardium/Pleural No pericardial effusion. MMode/2D Measurements & Calculations LVIDd: 5.5 cm IVSd: 1.2 cm Ao root diam: 3.4 cm LVIDs: 4.1 cm LVPWd: 1.4 cm RVDd: 3.7 cm FS: 26.4 % LAV(MOD-bp): 131.3 ml LA A4 area: 32.9 cm2 LA dimension(2D): 5.9 cm LAV(MOD-bp) Indexed: 67.6 ml/m2 LAV(MOD-sp2): 138.1 ml LAV(MOD-sp4): 124.5 ml RA A4 area: 21.8 cm2 Time Measurements MV dec time: 0.17 sec Doppler Measurements & Calculations MV E max simon: 94.2 cm/sec Lat Peak E' Simon: 10.9 cm/sec Med Peak E' Simon: 5.0 cm/sec E/E' lat: 8.6 E/E' med: 19.0 Ao V2 max: 121.2 cm/sec LV V1 max: 79.4 cm/sec PA V2 max: 53.8 cm/sec Ao max P.9 mmHg LV V1 max P.5 mmHg TR max simon: 231.7 cm/sec TR max P.5 mmHg ECHO/Echo Complete Interpretation Summary The study was technically difficult. Left ventricular systolic function is normal. The estimated ejection fraction is 60 %. The left atrium is severely enlarged. The right atrium is mildly enlarged. There is mild mitral annular calcification. The mitral valve chordae are thickened and/or calcified. Moderate (2+) eccentric mitral valve insufficiency. Moderate (2+) eccentric tricuspid valve insufficiency. Mild diffuse aortic valve thickening. Moderate focal aortic valve calcification. Trivial pulmonic valve insufficiency. Right ventricular systolic pressure estimated to be 25 mmHg. Transmitral diastolic flow velocities suggest diastolic dysfunction (pseudonorm al pattern). ICD or pacer leads identified within the right atrium ICD or pacer leads identified within the right ventricle. Ordering Physician: Lloyd King Referring Physician: Israel Bucio Performed By: Zoila Davidson, SIMIN, RVT
== END ==
PROVIDERS: PCP Family Medicine; Referring Provider Internal Medicine Cardiovascular Disease; Visit Provider Internal Medicine Cardiovascular Disease
DX: R60.9 Edema, unspecified (principal); N18.9 Chronic kidney disease, unspecified; I48.0 Paroxysmal atrial fibrillation; I11.0 Hypertensive heart disease with heart failure; I50.32 Chronic diastolic (congestive) heart failure; Z95.0 Presence of cardiac pacemaker
CPT/HCPCS: 93306

== ENCOUNTER 2021-04-23 09:52 | Outpatient (RCR) | payer MEDICARE, OTHER, SELFPAY ==
[2021-01-31 13:39] VITALS: BMI 29.6
[2021-04-16 10:21] LABS: Anion Gap 6 (5-15); BUN 41 mg/dL (7-18); BUN/Creat Ratio 21.4 RATIO (10-20); Calcium,Total 9.1 mg/dL (8.5-10.1); Chloride 104 mmol/L (98-107); Creatinine, Serum 1.92 mg/dL (0.55-1.02); EST Glomerular Filtration Rate 27 mL/min (>60); Est Glom Filt Rate - Afr Amer 33 mL/min (>60); Glucose 103 mg/dL (74-106); Sodium Level 141 mmol/L (136-145)
[2021-04-16 10:25] LABS: International Normalized Ratio 1.8; Prothrombin Time (Protime)PT. 19.7 SECONDS (11.7-14.9)
[2021-04-23 10:21] LABS: Prothrombin Time (Protime)PT. 21.5 SECONDS (11.7-14.9)
== END 2021-04-25 23:59 ==
LOC: PAVLAB 09:52
PROVIDERS: Family Provider Family Medicine; PCP Family Medicine; Referring Provider Internal Medicine Cardiovascular Disease; Visit Provider Internal Medicine Cardiovascular Disease
DX: I48.0 Paroxysmal atrial fibrillation (principal); Z79.01 Long term (current) use of anticoagulants; N18.30 Chronic kidney disease, stage 3 unspecified; D63.1 Anemia in chronic kidney disease; E55.9 Vitamin D deficiency, unspecified; N25.81 Secondary hyperparathyroidism of renal origin
CPT/HCPCS: 36415; 80048; 85610

== ENCOUNTER 2021-05-14 13:43 | Outpatient (RCR) | payer MEDICARE, OTHER, SELFPAY ==
[2021-01-31 13:39] VITALS: BMI 29.6
[2021-05-07 09:30] LABS: International Normalized Ratio 1.5; Prothrombin Time (Protime)PT. 16.9 SECONDS (11.7-14.9)
[2021-05-14 14:15] LABS: International Normalized Ratio 2.3; Prothrombin Time (Protime)PT. 24.1 SECONDS (11.7-14.9)
[2021-06-18 09:52] LABS: International Normalized Ratio 2.6; Prothrombin Time (Protime)PT. 26.9 SECONDS (11.7-14.9)
[2021-06-18 09:57] LABS: Anion Gap 5 (5-15); BUN 74 mg/dL (7-18); BUN/Creat Ratio 32.9 RATIO (10-20); Calcium,Total 9.8 mg/dL (8.5-10.1); Chloride 102 mmol/L (98-107); Creatinine, Serum 2.25 mg/dL (0.55-1.02); EST Glomerular Filtration Rate 22 mL/min (>60); Est Glom Filt Rate - Afr Amer 27 mL/min (>60); Glucose 148 mg/dL (74-106); Potassium 3.4 mmol/L (3.5-5.1); Sodium Level 140 mmol/L (136-145)
== END 2021-05-26 23:59 ==
LOC: PAVLAB 13:43
PROVIDERS: Family Provider Family Medicine; PCP Family Medicine; Referring Provider Internal Medicine Cardiovascular Disease; Visit Provider Internal Medicine Cardiovascular Disease
DX: I48.0 Paroxysmal atrial fibrillation (principal); Z79.01 Long term (current) use of anticoagulants
CPT/HCPCS: 36415; 80048; 85610

== ENCOUNTER → 2021-05-21 12:16 | Outpatient (CLI) | payer MEDICARE, OTHER, SELFPAY ==
[2021-05-21 10:57] VITALS: BMI 30.6
--- NOTE | 2021-05-21 12:18 | RAD_ITS ---
STUDY: X-RAY CHEST REASON FOR EXAM: Female, 76 years old. 1 1/2 week history of shortness of breath and lower extremity edema. TECHNIQUE: PA and lateral views of the chest. COMPARISON: Comparison is made with prior study dated 07/07/2020. FINDINGS: Stable elevation of the right hemidiaphragm. Mild increased interstitial markings suggestive of curly B lines suggestive of mild CHF. There is no demonstrated pleural abnormality. There is moderate cardiac enlargement. A right-sided unipolar pacemaker is seen. Normal mediastinum and maggie. Normal visualized pulmonary arteries. There is atherosclerotic calcification of the aortic arch with tortuosity. There is demineralization of the osseous structures. Multilevel disc space narrowing. Stable almost complete collapse of a mid dorsal vertebrae. Normal visualized ribs, clavicles, and shoulders. There is no demonstrated abnormality of the visualized soft tissue structures of the upper abdomen. RAD/Chest PA and Lateral IMPRESSION: Cardiomegaly. Increased interstitial markings at the lung bases suggests a mild degree of CHF. Electronically Signed: Ramakrishna Cummins MD at 22:09 EDT , Service support ,
== END ==
PROVIDERS: PCP Family Medicine; Referring Provider Internal Medicine Cardiovascular Disease; Visit Provider Internal Medicine Cardiovascular Disease
DX: R60.0 Localized edema (principal); I50.32 Chronic diastolic (congestive) heart failure
CPT/HCPCS: 71046

== ENCOUNTER 2021-06-18 09:28 | Outpatient (RCR) | payer MEDICARE, OTHER, SELFPAY ==
[2021-05-21 10:57] VITALS: BMI 30.6
[2021-05-28 10:27] LABS: Hematocrit 31.9 % (37-47); Hemoglobin 10.4 g/dL (12.0-15.0); Mean Corp Hgb Conc 32.6 g/dL (32-36); Mean Corpuscular Hgb 33.2 pg (27.0-32.0); Mean Corpuscular Volume 101.9 fL (81-99); Mean Platelet Vol. 9.5 fl (6.2-12.0); POSITIVE COUNT YES; Platelet Count 96 K/mm3 (150-450); RBC Distribution Width CV 15.6 % (11.6-14.6); RBC Distribution Width SD 59.3 fl (35.1-43.9); Red Blood Count 3.13 M/mm3 (4.2-5.4); White Blood Count 8.7 K/mm3 (4.4-11.0)
[2021-05-28 10:36] LABS: International Normalized Ratio 2.3; Prothrombin Time (Protime)PT. 24.2 SECONDS (11.7-14.9)
[2021-05-28 10:41] LABS: BNP,B-Type NATRIURETIC PEPTIDE 320.6 pg/mL (0-100)
[2021-05-28 10:42] LABS: Anion Gap 7 (5-15); BUN 67 mg/dL (7-18); BUN/Creat Ratio 33.5 RATIO (10-20); Calcium,Total 9.4 mg/dL (8.5-10.1); Chloride 101 mmol/L (98-107); EST Glomerular Filtration Rate 26 mL/min (>60); Est Glom Filt Rate - Afr Amer 31 mL/min (>60); Glucose 124 mg/dL (74-106); Sodium Level 138 mmol/L (136-145)
[2021-05-28 10:43] LABS: BUN 67 mg/dL (7-18); Creatinine, Serum 2.06 mg/dL (0.55-1.02); Glucose 126 mg/dL (74-106)
[2021-05-28 10:44] LABS: Albumin, Serum 3.5 g/dL (3.2-5.0); BUN/Creat Ratio 32.5 RATIO (10-20); Calcium,Total 9.5 mg/dL (8.5-10.1); Chloride 101 mmol/L (98-107); EST Glomerular Filtration Rate 25 mL/min (>60); Est Glom Filt Rate - Afr Amer 30 mL/min (>60); Phosphorus 3.7 mg/dL (2.5-4.9); Sodium Level 137 mmol/L (136-145)
[2021-05-28 10:46] LABS: Protein, Urine (Random) 26.9 mg/dL (<11.9); Protein:Creat Ratio 667 mg/g CRE (0-200)
[2021-05-28 10:56] LABS: Vitamin D,25 Hydroxy 57.2 ng/mL
[2021-05-31 13:39] LABS: Anion Gap 8 (5-15); BUN 77 mg/dL (7-18); BUN/Creat Ratio 35.5 RATIO (10-20); Calcium,Total 9.9 mg/dL (8.5-10.1); Chloride 100 mmol/L (98-107); Creatinine, Serum 2.17 mg/dL (0.55-1.02); EST Glomerular Filtration Rate 23 mL/min (>60); Est Glom Filt Rate - Afr Amer 28 mL/min (>60); Glucose 119 mg/dL (74-106); Potassium 3.7 mmol/L (3.5-5.1); Sodium Level 139 mmol/L (136-145)
== END 2021-06-26 23:59 ==
LOC: PAVLAB 09:28
PROVIDERS: Internal Medicine Nephrology; Family Provider Family Medicine; PCP Family Medicine; Referring Provider Internal Medicine Cardiovascular Disease; Visit Provider Internal Medicine Cardiovascular Disease
DX: I48.0 Paroxysmal atrial fibrillation (principal); Z79.01 Long term (current) use of anticoagulants; D63.1 Anemia in chronic kidney disease; E55.9 Vitamin D deficiency, unspecified; N25.81 Secondary hyperparathyroidism of renal origin; N18.30 Chronic kidney disease, stage 3 unspecified; I50.32 Chronic diastolic (congestive) heart failure
CPT/HCPCS: 36415; 80048; 80069; 82306; 82570; 83880; 84156; 85027; 85610

== ENCOUNTER 2021-07-16 09:38 | Outpatient (RCR) | payer MEDICARE, OTHER, SELFPAY ==
[2021-06-27 00:25] VITALS: BMI 30.6
[2021-07-03 10:42] LABS: Anion Gap 5 (5-15); BUN 61 mg/dL (7-18); BUN/Creat Ratio 30.5 RATIO (10-20); Calcium,Total 9.2 mg/dL (8.5-10.1); Chloride 99 mmol/L (98-107); EST Glomerular Filtration Rate 26 mL/min (>60); Est Glom Filt Rate - Afr Amer 31 mL/min (>60); Glucose 148 mg/dL (74-106); Potassium 3.6 mmol/L (3.5-5.1); Sodium Level 136 mmol/L (136-145)
[2021-07-16 10:07] LABS: International Normalized Ratio 2.6; Prothrombin Time (Protime)PT. 26.7 SECONDS (11.7-14.9)
[2021-07-16 18:05] LABS: Anion Gap 8 (5-15); BUN 64 mg/dL (7-18); BUN/Creat Ratio 28.3 RATIO (10-20); Calcium,Total 9.4 mg/dL (8.5-10.1); Chloride 102 mmol/L (98-107); Creatinine, Serum 2.26 mg/dL (0.55-1.02); EST Glomerular Filtration Rate 22 mL/min (>60); Est Glom Filt Rate - Afr Amer 27 mL/min (>60); Glucose 125 mg/dL (74-106); Sodium Level 139 mmol/L (136-145)
== END 2021-07-26 23:59 ==
LOC: PAVLAB 09:38
PROVIDERS: Physician Assistant Medical; Family Provider Family Medicine; PCP Family Medicine; Referring Provider Internal Medicine Cardiovascular Disease; Visit Provider Internal Medicine Cardiovascular Disease
DX: N18.30 Chronic kidney disease, stage 3 unspecified (principal); D63.1 Anemia in chronic kidney disease; E55.9 Vitamin D deficiency, unspecified; N25.81 Secondary hyperparathyroidism of renal origin; I48.0 Paroxysmal atrial fibrillation; Z79.01 Long term (current) use of anticoagulants
CPT/HCPCS: 36415; 80048; 85610

== ENCOUNTER 2021-08-20 09:50 | Outpatient (RCR) | payer MEDICARE, OTHER, SELFPAY ==
[2021-07-27 00:20] VITALS: BMI 30.6
[2021-08-13 10:10] LABS: International Normalized Ratio 2.5; Prothrombin Time (Protime)PT. 26.3 SECONDS (11.7-14.9)
[2021-08-13 10:22] LABS: Anion Gap 7 (5-15); BUN 61 mg/dL (7-18); BUN/Creat Ratio 27.1 RATIO (10-20); Calcium,Total 9.2 mg/dL (8.5-10.1); Chloride 102 mmol/L (98-107); Creatinine, Serum 2.25 mg/dL (0.55-1.02); EST Glomerular Filtration Rate 22 mL/min (>60); Est Glom Filt Rate - Afr Amer 27 mL/min (>60); Glucose 123 mg/dL (74-106); Potassium 3.4 mmol/L (3.5-5.1); Sodium Level 141 mmol/L (136-145)
[2021-08-20 10:34] LABS: Anion Gap 6 (5-15); BUN 51 mg/dL (7-18); BUN/Creat Ratio 23.1 RATIO (10-20); Calcium,Total 8.6 mg/dL (8.5-10.1); Chloride 108 mmol/L (98-107); Creatinine, Serum 2.21 mg/dL (0.55-1.02); EST Glomerular Filtration Rate 23 mL/min (>60); Est Glom Filt Rate - Afr Amer 28 mL/min (>60); Glucose 111 mg/dL (74-106); Potassium 4.5 mmol/L (3.5-5.1); Sodium Level 143 mmol/L (136-145)
== END 2021-08-26 23:59 ==
LOC: PAVLAB 09:50
PROVIDERS: Nurse Practitioner Gerontology; Family Provider Family Medicine; PCP Family Medicine; Referring Provider Internal Medicine Cardiovascular Disease; Visit Provider Internal Medicine Cardiovascular Disease
DX: N18.30 Chronic kidney disease, stage 3 unspecified (principal); D63.1 Anemia in chronic kidney disease; E55.9 Vitamin D deficiency, unspecified; N25.81 Secondary hyperparathyroidism of renal origin; I48.0 Paroxysmal atrial fibrillation; Z79.01 Long term (current) use of anticoagulants
CPT/HCPCS: 36415; 80048; 85610

== ENCOUNTER 2021-09-10 10:14 | Outpatient (RCR) | payer MEDICARE, OTHER, SELFPAY ==
[2021-08-27 00:16] VITALS: BMI 30.6
[2021-09-10 10:47] LABS: International Normalized Ratio 2.3; Prothrombin Time (Protime)PT. 24.3 SECONDS (11.7-14.9)
== END 2021-09-25 23:59 ==
LOC: PAVLAB 10:14
PROVIDERS: Family Provider Family Medicine; PCP Family Medicine; Referring Provider Internal Medicine Cardiovascular Disease; Visit Provider Internal Medicine Cardiovascular Disease
DX: I48.0 Paroxysmal atrial fibrillation (principal); Z79.01 Long term (current) use of anticoagulants
CPT/HCPCS: 36415; 85610

== ENCOUNTER 2021-10-03 09:41 | Outpatient (RCR) | payer MEDICARE, OTHER, SELFPAY ==
[2021-09-26 00:21] VITALS: BMI 30.6
[2021-10-03 10:14] LABS: International Normalized Ratio 2.3; Prothrombin Time (Protime)PT. 24.5 SECONDS (11.7-14.9)
[2021-10-03 10:17] LABS: Protein, Urine (Random) 33.1 mg/dL (<11.9); Protein:Creat Ratio 332 mg/g CRE (0-200)
[2021-10-03 10:28] LABS: Anion Gap 8 (5-15); BUN 44 mg/dL (7-18); BUN/Creat Ratio 23.7 RATIO (10-20); Calcium,Total 9.3 mg/dL (8.5-10.1); Chloride 106 mmol/L (98-107); Creatinine, Serum 1.86 mg/dL (0.55-1.02); EST Glomerular Filtration Rate 28 mL/min (>60); Est Glom Filt Rate - Afr Amer 34 mL/min (>60); Glucose 139 mg/dL (74-106); Sodium Level 143 mmol/L (136-145)
== END 2021-10-26 23:59 ==
LOC: PAVLAB 09:41
PROVIDERS: Family Provider Family Medicine; PCP Family Medicine; Referring Provider Internal Medicine Cardiovascular Disease; Visit Provider Internal Medicine Cardiovascular Disease
DX: I48.0 Paroxysmal atrial fibrillation (principal); Z79.01 Long term (current) use of anticoagulants
CPT/HCPCS: 36415; 80048; 82570; 84156; 85610

== ENCOUNTER 2021-11-14 10:33 | Outpatient (RCR) | payer MEDICARE, OTHER, SELFPAY ==
[2021-10-27 00:20] VITALS: BMI 30.6
[2021-11-14 11:15] LABS: International Normalized Ratio 2.9; Prothrombin Time (Protime)PT. 29.5 SECONDS (11.7-14.9)
== END 2021-11-26 23:59 ==
LOC: PAVLAB 10:33
PROVIDERS: Family Provider Family Medicine; PCP Family Medicine; Referring Provider Internal Medicine Cardiovascular Disease; Visit Provider Internal Medicine Cardiovascular Disease
DX: I48.0 Paroxysmal atrial fibrillation (principal); N25.81 Secondary hyperparathyroidism of renal origin; N18.30 Chronic kidney disease, stage 3 unspecified; Z79.01 Long term (current) use of anticoagulants; D63.1 Anemia in chronic kidney disease; E55.9 Vitamin D deficiency, unspecified
CPT/HCPCS: 36415; 85610

== ENCOUNTER 2021-12-12 09:04 | Outpatient (RCR) | payer MEDICARE, OTHER, SELFPAY ==
[2021-11-27 00:24] VITALS: BMI 30.6
[2021-12-12 09:47] LABS: International Normalized Ratio 2.5; Prothrombin Time (Protime)PT. 26.2 SECONDS (11.7-14.9)
== END 2021-12-24 23:59 ==
LOC: PAVLAB 09:04
PROVIDERS: Family Provider Family Medicine; PCP Family Medicine; Referring Provider Internal Medicine Cardiovascular Disease; Visit Provider Internal Medicine Cardiovascular Disease
DX: I48.0 Paroxysmal atrial fibrillation (principal); Z79.01 Long term (current) use of anticoagulants
CPT/HCPCS: 36415; 85610

== ENCOUNTER 2022-01-09 10:29 | Outpatient (RCR) | payer MEDICARE, OTHER, SELFPAY ==
[2021-12-25 00:25] VITALS: BMI 30.6
[2022-01-09 11:15] LABS: International Normalized Ratio 2.8; Prothrombin Time (Protime)PT. 28.6 SECONDS (11.7-14.9)
== END 2022-01-24 23:59 | disposition home or self-care (01) ==
LOC: PAVLAB 10:29
PROVIDERS: Family Provider Family Medicine; PCP Family Medicine; Referring Provider Internal Medicine Cardiovascular Disease; Visit Provider Internal Medicine Cardiovascular Disease
DX: I48.91 Unspecified atrial fibrillation (principal); Z79.01 Long term (current) use of anticoagulants
CPT/HCPCS: 36415; 85610

== ENCOUNTER 2022-02-06 09:55 | Outpatient (RCR) | payer MEDICARE, OTHER, SELFPAY ==
[2022-01-25 00:26] VITALS: BMI 30.6
[2022-02-06 10:17] LABS: International Normalized Ratio 2.8; Prothrombin Time (Protime)PT. 29.1 SECONDS (11.7-14.9)
== END 2022-02-23 23:59 ==
LOC: PAVLAB 09:55
PROVIDERS: Family Provider Family Medicine; PCP Family Medicine; Referring Provider Internal Medicine Cardiovascular Disease; Visit Provider Internal Medicine Cardiovascular Disease
DX: I48.0 Paroxysmal atrial fibrillation (principal); Z79.01 Long term (current) use of anticoagulants
CPT/HCPCS: 36415; 85610

== ENCOUNTER → 2022-03-28 | Outpatient (CLI) | payer MEDICARE, OTHER, SELFPAY ==
[2022-03-28 13:59] LABS: Hematocrit 31.4 % (37-47); Mean Corp Hgb Conc 31.8 g/dL (32-36); Mean Corpuscular Hgb 34.7 pg (27.0-32.0); Mean Platelet Vol. 8.8 fl (6.2-12.0); POSITIVE COUNT YES; POSITIVE MORPHOLOGY YES; Platelet Count 92 K/mm3 (150-450); RBC Distribution Width CV 16.5 % (11.6-14.6); RBC Distribution Width SD 66.1 fl (35.1-43.9); Red Blood Count 2.88 M/mm3 (4.2-5.4)
[2022-03-28 14:03] LABS: Scan Indicated on CBC? Y/N YES- FLAGS NOTED
[2022-03-28 14:21] LABS: Albumin, Serum 3.3 g/dL (3.2-5.0); BUN 51 mg/dL (7-18); Chloride 107 mmol/L (98-107); Creatinine, Serum 2.22 mg/dL (0.55-1.02); EST Glomerular Filtration Rate 23 mL/min (>60); Est Glom Filt Rate - Afr Amer 27 mL/min (>60); Glucose 110 mg/dL (74-106); Phosphorus 3.6 mg/dL (2.5-4.9); Potassium 4.5 mmol/L (3.5-5.1); Sodium Level 141 mmol/L (136-145)
[2022-03-28 14:32] LABS: Vitamin D,25 Hydroxy 57.7 ng/mL
[2022-03-28 14:33] LABS: Protein, Urine (Random) 59.2 mg/dL (<11.9); Protein:Creat Ratio 3253 mg/g CRE (0-200)
== END | disposition home or self-care (01) ==
LOC: PAVLAB 13:42
PROVIDERS: PCP Family Medicine; Referring Provider Internal Medicine Nephrology; Visit Provider Internal Medicine Nephrology
DX: N18.32 Chronic kidney disease, stage 3b (principal); N25.81 Secondary hyperparathyroidism of renal origin; E55.9 Vitamin D deficiency, unspecified; D63.1 Anemia in chronic kidney disease
CPT/HCPCS: 36415; 80069; 82306; 82570; 83970; 84156; 85027

== ENCOUNTER 2022-04-23 10:18 | Outpatient (RCR) | payer MEDICARE, OTHER, SELFPAY ==
[2022-02-24 00:25] VITALS: BMI 30.6
[2022-04-23 10:52] LABS: Anion Gap 5 (5-15); BUN 37 mg/dL (7-18); BUN/Creat Ratio 17.1 RATIO (10-20); Calcium,Total 9.5 mg/dL (8.5-10.1); Chloride 106 mmol/L (98-107); Creatinine, Serum 2.16 mg/dL (0.55-1.02); EST Glomerular Filtration Rate 23 mL/min (>60); Est Glom Filt Rate - Afr Amer 28 mL/min (>60); Glucose 158 mg/dL (74-106); Sodium Level 142 mmol/L (136-145)
[2022-04-23 10:53] LABS: Protein, Urine (Random) 115.8 mg/dL (<11.9); Protein:Creat Ratio 1213 mg/g CRE (0-200)
== END 2022-04-25 23:59 ==
LOC: PAVLAB 10:18
PROVIDERS: Internal Medicine Nephrology; Family Provider Family Medicine; PCP Family Medicine; Referring Provider Internal Medicine Cardiovascular Disease; Visit Provider Internal Medicine Cardiovascular Disease
DX: N18.32 Chronic kidney disease, stage 3b
CPT/HCPCS: 36415; 80048; 82570; 84156

== ENCOUNTER → 2022-05-03 | Outpatient (CLI) | payer MEDICARE, OTHER, SELFPAY ==
[2022-05-03 10:54] LABS: Anion Gap 4 (5-15); BUN 45 mg/dL (7-18); BUN/Creat Ratio 17.8 RATIO (10-20); Calcium,Total 9.5 mg/dL (8.5-10.1); Chloride 106 mmol/L (98-107); Creatinine, Serum 2.53 mg/dL (0.55-1.02); EST Glomerular Filtration Rate 20 mL/min (>60); Est Glom Filt Rate - Afr Amer 24 mL/min (>60); Glucose 184 mg/dL (74-106); Potassium 4.4 mmol/L (3.5-5.1); Sodium Level 141 mmol/L (136-145)
[2022-05-03 10:55] LABS: Protein, Urine (Random) 140.3 mg/dL (<11.9); Protein:Creat Ratio 1179 mg/g CRE (0-200)
== END | disposition home or self-care (01) ==
LOC: PAVLAB 10:08
PROVIDERS: PCP Family Medicine; Referring Provider Internal Medicine Nephrology; Visit Provider Internal Medicine Nephrology
DX: N18.32 Chronic kidney disease, stage 3b (principal)
CPT/HCPCS: 36415; 80048; 82570; 84156

== ENCOUNTER 2022-06-14 17:01 | Inpatient (IN) | payer MEDICARE, OTHER, SELFPAY ==
[2022-06-14] VITALS (9 sets, daily range): BP systolic 125–157; BP diastolic 57–100; PULSE 70–95; RESP 16–23; TEMP 36.8–39.5; O2SAT 96–100; BMI 29.0; BMI 28.2
--- NOTE | 2022-06-14 18:23 | EKG12_ITS ---
Test Reason : DYSRHYTHMIA Blood Pressure : / mmHG Vent. Rate : 079 BPM Atrial Rate : 086 BPM P-R Int : 000 ms QRS Dur : 084 ms QT Int : 380 ms P-R-T Axes : 000 046 242 degrees QTc Int : 435 ms Accelerated Junctional rhythm Septal infarct , age undetermined Marked ST abnormality, possible lateral subendocardial injury Abnormal ECG Confirmed by JOSEPH CHAN, RAJ ([id number]), art editor VITALY BARBOZA ([id number]) on 06/18/2022 8:00:29 AM Referred By: MACIE Confirmed By:RAJ RUIZ MD
--- NOTE | 2022-06-14 18:23 | CT_ITS ---
STUDY: CT BRAIN WITHOUT CONTRAST REASON FOR EXAM: Female, 77 years old. altered mental status TECHNIQUE: Transaxial CT imaging of the brain was performed without administration of intravenous contrast material. Individualized dose optimization techniques were used for this CT. COMPARISON: None FINDINGS: Normal calvarium. Normal soft tissues. Normal size ventricles and extra-axial spaces for the patient''s age. Normal white matter tracts of the cerebral hemispheres. Normal basal ganglia and thalami. Normal brainstem. Normal cerebellum. There is no intracranial hemorrhage. There are no findings of an acute ischemic infarction. There are calcifications noted in the distal vertebral arteries. There are calcifications noted in the cavernous carotid arteries. This is consistent for atherosclerotic disease. Normal visualized paranasal sinuses. ASPECTS 10 CT/Brain/Head without Contrast IMPRESSION: There are no acute intracranial findings. Electronically Signed: Estevan Stewart MD at 19:11 EDT ,
--- NOTE | 2022-06-14 18:27 | EDS_ITS ---
HPI History of Present Illness Chief Complaint: Back Informant: patient and family Narrative Narrative: Family notices the patient is confused today, they noticed it at 1 point, and she is complaining of pain across her shoulder blades in the back, mostly on the right periscapular area. She denies having pain elsewhere. She was disoriented earlier, but not answering questions as well as the expected or 2, nothing really specific. Patient has had some nausea and poor oral intake today but denies any other focal symptoms. No known contact with anyone else who has been ill. Nurses checked her temperature here prior to my evaluation and she is febrile which is the first family realize this. [facility] Medical History (Updated 06/14/22 @ 21:[address] Conner Dunham MD) Atrial fibrillation Chronic dizziness CLL (chronic lymphocytic leukemia) COVID-19 (10/13/20) Hypertension Kidney disease Lesion of pancreas Nausea Pacemaker Proteinuria Renal insufficiency Shingles Shingles (herpes zoster) polyneuropathy Sick sinus syndrome Home Medications multivitamin with folic acid 400 mcg tablet 1 tab PO DAILY supplement 07/18/14 [History Last Taken 06/30/20] allopurinol 100 mg tablet 100 mg PO DAILYCM gout 01/20/17 [History Last Taken 06/30/20] acetaminophen 325 mg tablet 650 mg PO Q6H PRN PRN Pain Score 1-10/Temp > 100.7 F 07/19/20 [Rx Last Taken Unknown] calcitriol 0.25 mcg capsule 0.25 mcg PO .COMPLEX supplement 12/04/20 [History Last Taken Unknown] atenolol 50 mg tablet 50 mg PO DAILY 02/18/22 [History Last Taken Unknown] coenzyme Q10 100 mg tablet 100 mg PO DAILY 02/18/22 [History Last Taken Unknown] furosemide 80 mg tablet 80 mg PO BID 02/18/22 [History Last Taken Unknown] hydroxyzine HCl 25 mg tablet 25 mg PO QHS PRN Anxiety 02/18/22 [History Last Taken Unknown] magnesium oxide 250 mg PO DAILY 02/18/22 [History Last Taken Unknown] metolazone 5 mg tablet 2.5 mg PO .COMPLEX PRN PRN 02/18/22 [History Last Taken Unknown] potassium chloride 20 mEq tablet,extended release(part/cryst) 60 meq PO BID supplement 02/18/22 [History Last Taken Unknown] cholecalciferol (vitamin D3) 50 mcg (2,000 unit) tablet 1,000 unit PO DAILY 03/11/22 [History Last Taken Unknown] apixaban 5 mg tablet (Eliquis) 5 mg PO BID #180 tabs 03/13/22 [Rx Last Taken Unknown] Allergy/AdvReac Type Severity Reaction Status Date / Time losartan AdvReac Severe Severe Verified 06/14/22 17:05 nausea, GI upset, anorexia erythromycin base AdvReac Intermediate Unknown Verified 06/14/22 17:05 [Erythromycin Base] Penicillins AdvReac Intermediate Rash Verified 06/14/22 17:05 Family History Mother Hypertension Heart disease Father Diabetes Myocardial infarction Surgical History History of cardioversion (03/02/19) History of cholecystectomy History of hysterectomy History of parathyroid surgery Presence of permanent cardiac pacemaker (~07/06/20) Social History Smoking Status: Never smoker alcohol intake: never substance use type: does not use caffeine: No ROS ROS ED Constitutional Constitutional ED: Reports fatigue, malaise and weakness; Denies chills or headache(s) Eyes Eyes: Denies change in vision or diplopia ENT ENT ED: Denies ear pain, rhinorrhea or sore throat Cardiovascular Cardiovascular: Denies chest pain or palpitations Respiratory/Chest Respiratory/Chest: Denies cough or dyspnea Gastrointestinal Gastrointestinal: Reports nausea; Denies abdominal pain, diarrhea or vomiting Genitourinary Genitourinary ED: Denies dysuria or hematuria Musculoskeletal Musculoskeletal: Reports back pain; Denies myalgias or neck pain Integumentary Denies abscess or rash Neurologic Neurologic: Denies headache(s), paresthesias or weakness Psychiatric Psychiatric: Denies anxiety or suicidal thoughts EXAM Physical Exam Const Vital Signs: 06/14/22 17:02 06/14/22 17:42 06/14/22 18:23 Temperature 101.6 F H 102.2 F H Temperature Source Temporal Oral Pulse Rate 95 80 Respiratory Rate 16 20 H Respiratory Effort Normal Non-Labored Respiratory Pattern Normal Blood Pressure 130/100 H 157/79 H Blood Pressure Mean 110 105 Pulse Ox 98 98 Oxygen Delivery Method Room Air Room Air 06/14/22 18:28 06/14/22 18:28 06/14/22 18:28 Temperature 103.1 F H 103.1 F H Temperature Source Oral Oral Pulse Rate 80 Respiratory Rate 20 H Respiratory Effort Respiratory Pattern Blood Pressure 155/73 H Blood Pressure Mean 100 Pulse Ox 98 Oxygen Delivery Method Room Air Room Air 06/14/22 19:27 06/14/22 19:30 06/14/22 20:19 Temperature 100.7 F H 100.7 F H 100.2 F H Temperature Source Oral Oral Oral Pulse Rate 86 71 Respiratory Rate 23 H 16 Respiratory Effort Respiratory Pattern Blood Pressure 134/72 H 125/66 H Blood Pressure Mean 92 85 Pulse Ox 96 96 Oxygen Delivery Method Room Air Room Air 06/14/22 20:19 Temperature 100.2 F H Temperature Source Oral Pulse Rate Respiratory Rate Respiratory Effort Respiratory Pattern Blood Pressure Blood Pressure Mean Pulse Ox Oxygen Delivery Method Positive well nourished and well developed General Appearance ED: well developed and NAD HEENT Reports moist mucous membranes normocephalic and atraumatic Eyes PERRL and EOMs intact bilaterally Neck full ROM and supple Chest Wall inspection of chest normal and palpation of chest normal Resp normal respiratory effort and clear to auscultation bilaterally Cardio regular rate, regular rhythm and no murmurs GI non-tender and non-distended Auscultation: normoactive bowel sounds Palpation: soft Back/Spine no CVA tenderness Back/Spine Narrative: Tender right parascapular/trapezius area. No rash. No spinal tenderness. Nontender on the left. Very limited exam, patient is very resistant to sitting up, turning, and she needs 3 of us to help her do any of that. General Back: other FROM Extremity normal to inspection General Extremety ED: Negative for edema, pulses abnormal or tenderness General Extremity: Negative for edema or pulses abnormal Neuro oriented x3, CN's II-XII intact bilaterally and no sensory deficits noted Neuro Narrative: Generally symmetrically weak, nonfocal neurologic exam. Oriented to person, place, month, year. Keenly alert. Sensorium / Orientation: awake and alert Motor Exam: general weakness Psych mental status grossly normal Skin no rashes or lesions noted and no wounds MDM MDM MDM Narrative Medical decision making narrative: Work-up obtained given her temperature of 102, she was treated with Tylenol, this came down as a result. She was still disoriented according to family. CT of the head showed nothing acute. 1 view chest x-ray my interpretation shows no acute pneumonia, radiology in agreement nothing acute. Her labs are noted, she has a mildly elevated lactic acid. Her renal function is worse than usual. Her urine does not show acute infection. COVID and influenza negative. Given this, my suspicion is that this is actually COVID since we have no other obvious source. I am sending PCR. She does not have any tachycardia or hypoxemia or dyspnea to suggest pulmonary embolus, plus this would be unlikely to cause a fever that high since she is not an IV drug user, and additionally she is anticoagulated already on apixaban. Given her disorientation and weakness, plan is for admission, she is still having significant pain with occasional muscle spasms in her right upper back, so in addition to the Tylenol I will give her a dose of [place] and a small dose of Norflex to see if that helps. She has had a prior cholecystectomy and her abdomen is benign, so I do not think she needs any imaging there at this time. Lab Data Attestation: I reviewed the patient's lab results. Labs: Laboratory Results - last 24 hr 06/14/22 06/14/22 06/14/22 18:15 18:15 18:15 WBC 10.4 RBC 2.38 L Hgb 8.5 L Hct 26.3 L MCV 110.5 H MCH 35.7 H MCHC 32.3 RDW Std Deviation 63.2 H RDW Coeff of Jose 15.7 H Plt Count 86 L MPV 10.3 Immature Gran % (Auto) 0.100 Neut % (Auto) 31.2 L Lymph % (Auto) 65.5 H [place] % (Auto) 3.1 Eos % (Auto) 0.0 Baso % (Auto) 0.1 Absolute Neuts (auto) 3.2 Absolute Lymphs (auto) 6.80 H Nucleated RBC % 0 Differential Comment SCANNED PT 16.5 H INR 1.4 APTT 41.8 H Sodium Potassium Chloride Carbon Dioxide Anion Gap BUN Creatinine Estim Creat Clear Calc Est GFR (MDRD) Af Amer Est GFR (MDRD) Non-Af BUN/Creatinine Ratio Glucose Lactic Acid 2.7 H* Calcium Total Bilirubin AST ALT Alkaline Phosphatase Troponin I High Sens Total Protein Albumin Globulin Albumin/Globulin Ratio Urine Color Urine Clarity Urine pH Ur Specific [place] Urine Protein Urine Glucose (UA) Urine Ketones Urine Occult Blood Urine Nitrite Urine Bilirubin Urine Urobilinogen Ur Leukocyte Esterase Urine RBC Urine WBC Ur Squamous Epith Cells Urine Bacteria Urine Mucus 06/14/22 06/14/22 18:15 18:23 WBC RBC Hgb Hct MCV MCH MCHC RDW Std Deviation RDW Coeff of Jose Plt Count MPV Immature Gran % (Auto) Neut % (Auto) Lymph % (Auto) [place] % (Auto) Eos % (Auto) Baso % (Auto) Absolute Neuts (auto) Absolute Lymphs (auto) Nucleated RBC % Differential Comment PT INR APTT Sodium 138 Potassium 4.4 Chloride 105 Carbon Dioxide 24.0 Anion Gap 9 BUN 52 H Creatinine 3.03 H Estim Creat Clear Calc 14.09 Est GFR (MDRD) Af Amer 19 L Est GFR (MDRD) Non-Af 16 L BUN/Creatinine Ratio 17.2 Glucose 164 H Lactic Acid Calcium 9.8 Total Bilirubin 0.80 AST 81 H ALT 62 H Alkaline Phosphatase 122 H Troponin I High Sens 24 Total Protein 6.3 L Albumin 2.9 L Globulin 3.4 Albumin/Globulin Ratio 0.9 Urine Color Yellow Urine Clarity Clear Urine pH 6.5 Ur Specific [place] 1.010 Urine Protein 100 H Urine Glucose (UA) Normal Urine Ketones Negative Urine Occult Blood 150 H Urine Nitrite Negative Urine Bilirubin Negative Urine Urobilinogen Normal Ur Leukocyte Esterase Negative Urine RBC 50-100 SEEN Urine WBC 0 SEEN Ur Squamous Epith Cells 0 SEEN Urine Bacteria RARE Urine Mucus 0 SEEN Radiography Diagnostic Testing: Clinical Impression(s) from Imaging Studies Brain CT 06/14/22 18:23 IMPRESSION: There are no acute intracranial findings. Electronically Signed: Estevan Stewart MD at 19:11 EDT , Chest X-Ray 06/14/22 19:02 IMPRESSION: There are no acute findings. Electronically Signed: Estevan Stewart MD at 19:12 EDT , Rhythm Strip Rhythm Strip: A-fib Rate: 80 Ectopy: None EKG Initial EKG: Attestation: I personally reviewed and interpreted this EKG as follows: Interpretation: No Acute Injury Pattern, Atrial Fibrillation and Inverted T-Waves (inf and sept-lat) Prior EKG tracings: available for review Prior: Changed (T wave inversions are new, morphology different but was paced and now not being paced) Discharge Plan Triage Chief Complaint: Back Other Complaint: Fever ED Provider: Conner Dunham Dx/Rx/DC Orders Clinical Impression: Encephalopathy acute, Fever, OJ (acute kidney injury), Anemia, Acute upper back pain, Generalized weakness Prescriptions: No Action calcitriol 0.25 mcg capsule 0.25 mcg PO .COMPLEX Rx Instructions: 0.25 mcg PO Friday, Friday and Friday; atenolol 50 mg tablet 50 mg PO DAILY magnesium oxide 250 mg magnesium tablet 250 mg PO DAILY metolazone 5 mg tablet 2.5 mg PO .COMPLEX PRN (Reason: PRN) Rx Instructions: 2.5 mg PO PRN; coenzyme Q10 100 mg tablet 100 mg PO DAILY hydroxyzine HCl 25 mg tablet 25 mg PO QHS PRN (Reason: Anxiety) furosemide 80 mg tablet 80 mg PO BID cholecalciferol (vitamin D3) 50 mcg (2,000 unit) tablet 1,000 unit PO DAILY Eliquis 5 mg tablet 5 mg PO BID Qty: 180 4RF multivitamin with folic acid 1 TABLET tablet 1 tab PO DAILY allopurinol 100 MG tablet 100 mg PO DAILYCM acetaminophen 325 MG tablet 650 mg PO Q6H PRN PRN (Reason: Pain Score 1-10/Temp > 100.7 F) 0RF potassium chloride 20 mEq tablet,ER particles/crystals 60 meq PO BID Primary Care Provider: Israel Bucio Referrals: Israel Bucio DO [Primary Care Provider] - Disposition Disposition: Acute Care Hospital [facility]
[2022-06-14] MEDS: Acetaminophen 500 MG Tablet 1000 MG PO (18:37)
[2022-06-14] MEDS: 0.9% Normal Saline 1,000 ML 150 ML IV (18:38)
[2022-06-14 18:39] LABS: Mucous, Urine 0 SEEN /hpf (<or=2+); Squamous Epithelial Cells - UA 0 SEEN /hpf (5-10); White Blood Cells 0 SEEN /hpf (0-5)
[2022-06-14 18:46] LABS: Color, Urine Yellow (Yellow); Glucose, Dipstick Normal (Normal); Ketone-Dipstick Negative (Negative); Leukocyte Esterase-Dipstick Negative /ul (Negative); Nitrite-Dipstick Negative (Negative); Occult Blood-Urine 150 /ul (Negative); Protein-Dipstick 100 mg/dl (Negative); Urine Bilirubin Dipstick Negative (Negative); Urine Clarity Clear (Clear); Urine Urobilinogen Normal (Normal); Urine pH 6.5 (5.0 - 8.0)
[2022-06-14 18:57] LABS: Absolute Neutrophil Count 3.2 X10^3/uL (2.0-7.7); Basophil# 0.01 X10^3/uL; Basophil% 0.1 % (0-1); Hematocrit 26.3 % (37-47); Hemoglobin 8.5 g/dL (12.0-15.0); Lymphocyte % 65.5 % (19-41); Mean Corp Hgb Conc 32.3 g/dL (32-36); Mean Corpuscular Hgb 35.7 pg (27.0-32.0); Mean Corpuscular Volume 110.5 fL (81-99); Mean Platelet Vol. 10.3 fl (6.2-12.0); Monocyte# 0.32 X10^3/uL; Monocyte% 3.1 % (0-10); NRBC Flagged by Analyzer 0 % (0-5); Neutrophil # 3.24 X10^3/uL (2.7-7.7); Neutrophil % 31.2 % (47-70); POSITIVE COUNT YES; POSITIVE DIFFERENTIAL YES; POSITIVE MORPHOLOGY YES; Platelet Count 86 K/mm3 (150-450); RBC Distribution Width CV 15.7 % (11.6-14.6); RBC Distribution Width SD 63.2 fl (35.1-43.9); Red Blood Count 2.38 M/mm3 (4.2-5.4); White Blood Count 10.4 K/mm3 (4.4-11.0)
[2022-06-14 18:59] LABS: Bacteria RARE /hpf (None Seen); International Normalized Ratio 1.4; Prothrombin Time (Protime)PT. 16.5 SECONDS (11.7-14.9); Red Blood Cells-Urine 50-100 SEEN /hpf (0-5)
[2022-06-14 19:00] LABS: Partial Thromboplast Time 41.8 Seconds (24.1-36.2)
--- NOTE | 2022-06-14 19:02 | RAD_ITS ---
STUDY: X-RAY CHEST REASON FOR EXAM: Female, 77 years old. fever TECHNIQUE: XR Chest 1 View COMPARISON: 7..21 FINDINGS: There is no demonstrated pleural abnormality. There is a left sided pacemaker batterypack. There is borderline cardiomegaly. Normal mediastinum and maggie. Normal visualized pulmonary arteries. There is atherosclerotic calcification of the aortic arch with tortuosity. There are diffuse degenerative changes of the visualized thoracic spine. There is degenerative osteoarthritis of the bilateral shoulders. There is no demonstrated abnormality of the visualized soft tissue structures of the upper abdomen. RAD/Chest 1 View (Portable) IMPRESSION: There are no acute findings. Electronically Signed: Estevan Stewart MD at 19:12 EDT ,
[2022-06-14 19:20] LABS: Lactic Acid 2.7 mmol/L (0.4-1.9)
[2022-06-14 19:27] LABS: ALB/GLOB Ratio 0.9 RATIO (0.9-2.4); AST(SGOT) 81 U/L (15-37); Alanine Aminotransfer ALT/SGPT 62 U/L (13-56); Albumin, Serum 2.9 g/dL (3.2-5.0); Alkaline Phosphatase 122 U/L (45-117); Anion Gap 9 (5-15); BUN 52 mg/dL (7-18); BUN/Creat Ratio 17.2 RATIO (10-20); Calcium,Total 9.8 mg/dL (8.5-10.1); Chloride 105 mmol/L (98-107); Creatinine, Serum 3.03 mg/dL (0.55-1.02); EST Glomerular Filtration Rate 16 mL/min (>60); Est Glom Filt Rate - Afr Amer 19 mL/min (>60); Estimated Creatinine Clearance 14.09 ml/min; Globulin 3.4 g/dL (2.2-4.2); Glucose 164 mg/dL (74-106); Potassium 4.4 mmol/L (3.5-5.1); Protein, Total 6.3 g/dL (6.4-8.2); Sodium Level 138 mmol/L (136-145); Troponin-I HS 24 pg/mL (3.0-54.0)
[2022-06-14 19:59] LABS: Differential Indicated SCAN CRITERIA MET
[2022-06-14 20:22] LABS: Differential Comment SCANNED
[2022-06-14] MEDS: HYDROcodone Bitartrate/Apap 5/325 Tablet PO (21:37)
[2022-06-14] MEDS: Orphenadrine 60 MG/2 ML Ampul 30 MG IV (21:38)
--- NOTE | 2022-06-14 21:45 | PCM.HP.STD ---
HPI - General General Date of Admission: 06/14/22 Date of Service: 06/14/22 Chief Complaint: confusion HPI Narrative ENRICO MEEKS, is a 77 F with a significant history of atrial fibrillation on eliquis; CLL; hypertension and permanent pacemaker placement who presents at the emergency department with disorientation. Per family patient's symptoms has been persistent all day. Also patient has excruciating severe pain between her scapula. This pain radiates to her neck and into her bilateral temples. Her pain actually started a day before presentation. At the emergent department patient was found to have a fever. Patient denies shortness of breath but family has noted that patient has been gasping for breath. Emergent department doctor reported patient has severe weakness as it took 3 people to help patient follow the ED. Patient reports anorexia. Of note patient has received 2 vaccination of Moderna COVID-19 immunization. Reportedly after the second dose patient and family felt very sick. History was taken from patient, patient daughters who were at bedside in the emergency department doctor as patient could not give entire history [facility] Medical History Atrial fibrillation Chronic dizziness CLL (chronic lymphocytic leukemia) COVID-19 (10/13/20) Hypertension Kidney disease Lesion of pancreas Nausea Pacemaker Proteinuria Renal insufficiency Shingles Shingles (herpes zoster) polyneuropathy Sick sinus syndrome Home Medications multivitamin with folic acid 400 mcg tablet 1 tab PO DAILY supplement 07/18/14 [History Last Taken 06/30/20] allopurinol 100 mg tablet 100 mg PO DAILYCM gout 01/20/17 [History Last Taken 06/30/20] acetaminophen 325 mg tablet 650 mg PO Q6H PRN PRN Pain Score 1-10/Temp > 100.7 F 07/19/20 [Rx Last Taken Unknown] calcitriol 0.25 mcg capsule 0.25 mcg PO .COMPLEX supplement 12/04/20 [History Last Taken Unknown] atenolol 50 mg tablet 50 mg PO DAILY 02/18/22 [History Last Taken Unknown] coenzyme Q10 100 mg tablet 100 mg PO DAILY 02/18/22 [History Last Taken Unknown] furosemide 80 mg tablet 80 mg PO BID 02/18/22 [History Last Taken Unknown] hydroxyzine HCl 25 mg tablet 25 mg PO QHS PRN Anxiety 02/18/22 [History Last Taken Unknown] magnesium oxide 250 mg PO DAILY 02/18/22 [History Last Taken Unknown] metolazone 5 mg tablet 2.5 mg PO .COMPLEX PRN PRN 02/18/22 [History Last Taken Unknown] potassium chloride 20 mEq tablet,extended release(part/cryst) 60 meq PO BID supplement 02/18/22 [History Last Taken Unknown] cholecalciferol (vitamin D3) 50 mcg (2,000 unit) tablet 1,000 unit PO DAILY 03/11/22 [History Last Taken Unknown] apixaban 5 mg tablet (Eliquis) 5 mg PO BID #180 tabs 03/13/22 [Rx Last Taken Unknown] Allergy/AdvReac Type Severity Reaction Status Date / Time losartan AdvReac Severe Severe Verified 06/14/22 17:05 nausea, GI upset, anorexia erythromycin base AdvReac Intermediate Unknown Verified 06/14/22 17:05 [Erythromycin Base] Penicillins AdvReac Intermediate Rash Verified 06/14/22 17:05 Family History Mother Hypertension Heart disease Father Diabetes Myocardial infarction Surgical History History of cardioversion (03/02/19) History of cholecystectomy History of hysterectomy History of parathyroid surgery Presence of permanent cardiac pacemaker (~07/06/20) Social History Smoking Status: Never smoker alcohol intake: never substance use type: does not use caffeine: No ROS ROS Narrative Pertinent positives and pertinent negatives as noted in HPI. All other systems were reviewed and are negative Vital Signs Vital Signs Vital Signs: 06/14/22 17:02 06/14/22 17:42 06/14/22 18:23 Temperature 101.6 F H 102.2 F H Temperature Source Temporal Oral Pulse Rate 95 80 Respiratory Rate 16 20 H Respiratory Effort Normal Non-Labored Respiratory Pattern Normal Blood Pressure 130/100 H 157/79 H Blood Pressure Mean 110 105 Pulse Ox 98 98 Oxygen Delivery Method Room Air Room Air 06/14/22 18:28 06/14/22 18:28 06/14/22 18:28 Temperature 103.1 F H 103.1 F H Temperature Source Oral Oral Pulse Rate 80 Respiratory Rate 20 H Respiratory Effort Respiratory Pattern Blood Pressure 155/73 H Blood Pressure Mean 100 Pulse Ox 98 Oxygen Delivery Method Room Air Room Air 06/14/22 19:27 06/14/22 19:30 06/14/22 20:19 Temperature 100.7 F H 100.7 F H 100.2 F H Temperature Source Oral Oral Oral Pulse Rate 86 71 Respiratory Rate 23 H 16 Respiratory Effort Respiratory Pattern Blood Pressure 134/72 H 125/66 H Blood Pressure Mean 92 85 Pulse Ox 96 96 Oxygen Delivery Method Room Air Room Air 06/14/22 20:19 Temperature 100.2 F H Temperature Source Oral Pulse Rate Respiratory Rate Respiratory Effort Respiratory Pattern Blood Pressure Blood Pressure Mean Pulse Ox Oxygen Delivery Method Weight Weight: 81.647 kg Body Mass Index (BMI) 29.0 Physical Exam Narrative Physical exam: General: Well-nourished, well-developed. Head: Normocephalic, atraumatic, no tenderness Eyes: Vision is grossly intact. EOMI ENT, no trauma, dry mucous membranes, no rhinorrhea Neck: Nontender, full range of motion, no spinal tenderness, deformities, step-off CVS: Regular rate and rhythm. S1-S2 present. No murmur, gallop or rub. Respiratory : Tachypnea. Clear to auscultation bilaterally, chest wall nontender, no wheezing Abdomen: Soft, nontender, nondistended, normal bowel sounds, no masses : Deferred Back: Nontender, no CVA tenderness, no midline spinal tenderness, deformities, step-offs Extremities: Nontender full range of motion, no trauma Skin: Normal color, no trauma, abrasions Neuro: Alert, oriented, cranial nerves II through XII grossly intact. Not fluent conversation Psychiatry: Normal mood. Normal affect. Not depressed. Not anxious. Results Lab / Micro Data Result Diagrams: 06/14/22 18:15 06/14/22 18:23 Labs: Laboratory Results - last 24 hr 06/14/22 18:15: WBC 10.4, RBC 2.38 L, Hgb 8.5 L, Hct 26.3 L, MCV 110.5 H, MCH 35.7 H, MCHC 32.3, RDW Std Deviation 63.2 H, RDW Coeff of Jose 15.7 H, Plt Count 86 L, MPV 10.3, Immature Gran % (Auto) 0.100, Neut % (Auto) 31.2 L, Lymph % (Auto) 65.5 H, [place] % (Auto) 3.1, Eos % (Auto) 0.0, Baso % (Auto) 0.1, Absolute Neuts (auto) 3.2, Absolute Lymphs (auto) 6.80 H, Nucleated RBC % 0, Differential Comment SCANNED 06/14/22 18:15: PT 16.5 H, INR 1.4, APTT 41.8 H 06/14/22 18:15: Lactic Acid 2.7 H* 06/14/22 18:15: Urine Color Yellow, Urine Clarity Clear, Urine pH 6.5, Ur Specific [place] 1.010, Urine Protein 100 H, Urine Glucose (UA) Normal, Urine Ketones Negative, Urine Occult Blood 150 H, Urine Nitrite Negative, Urine Bilirubin Negative, Urine Urobilinogen Normal, Ur Leukocyte Esterase Negative, Urine RBC 50-100 SEEN, Urine WBC 0 SEEN, Ur Squamous Epith Cells 0 SEEN, Urine Bacteria RARE, Urine Mucus 0 SEEN 06/14/22 18:23: Sodium 138, Potassium 4.4, Chloride 105, Carbon Dioxide 24.0, Anion Gap 9, BUN 52 H, Creatinine 3.03 H, Estim Creat Clear Calc 14.09, Est GFR (MDRD) Af Amer 19 L, Est GFR (MDRD) Non-Af 16 L, BUN/Creatinine Ratio 17.2, Glucose 164 H, Calcium 9.8, Total Bilirubin 0.80, AST 81 H, ALT 62 H, Alkaline Phosphatase 122 H, Troponin I High Sens 24, Total Protein 6.3 L, Albumin 2.9 L, Globulin 3.4, Albumin/Globulin Ratio 0.9 Micro: Microbiology 06/14/22 18:15 Nasal Secretion SARS-CoV-2 & FLU Antigen (Rapid) - Final Rhythm Strip Rhythm Strip: A-fib Rate: 80 Ectopy: None Radiology Impression Brain CT 06/14/22 18:23 IMPRESSION: There are no acute intracranial findings. Electronically Signed: Estevan Stewart MD at 19:11 EDT Reading Location ID and State: [facility] / [place] , Service support , Chest X-Ray 06/14/22 19:02 IMPRESSION: There are no acute findings. Electronically Signed: Estevan Stewart MD at 19:12 EDT , Assessment & Plan Assessment/Plan (1) Encephalopathy acute: (2) Acute upper back pain: (3) OJ (acute kidney injury): (4) Febrile illness, acute: PLAN: Plan Acute febrile illness Etiology unclear. Rapid COVID-negative. COVID PCR ordered emergency department, follow-up. Chest x-ray image was visualized and independently interpreted. I agree with radiologist interpretation of no acute cardiopulmonary process. Tylenol PRN for fever. OJ on CKD stage IV Creatinine on presentation was 3.03. Baseline creatinine is around 2.22. BUN 52. BUN over creatinine is 17.2 Gentle IV hydration. Hold home diuretics. Hold home potassium. Avoid nephrotoxins. Trend BMP. Acute upper back pain, neck pain, headaches Norflex IV ordered Emergency Department. Norflex p.o. ordered. As needed oxycodone ordered Lactic acidosis Lactic acid of 2.7 Does not meet order SIRS criteria to classify as sepsis. Trend. Acute Encephalopathy Likely from infection Improving. Hold home hydroxyzine. TSH; ammonia ordered Hypertension Blood pressure is not within goal Home blood pressure medication continued. As needed hydralazine ordered. Trend blood pressure and adjust blood pressure medications. DVT prophylaxis: Subcutaneous heparin ordered. Charges/Coding Visit Charges OBSV E&M: 23866 Initial observation care L3
[2022-06-14 22:37] LABS: Reflex Lactate? Y
[2022-06-14] MEDS: oxyCODONE 5 MG Tablet PO (23:44)
[2022-06-14] MEDS: APIXABAN 5 MG TABLET PO (23:44)
[2022-06-14] MEDS: Heparin Injection (Vial) 5,000 UNIT/ML VIAL 5000 UNIT SC (23:44)
[2022-06-15] VITALS (8 sets, daily range): BP systolic 121–159; BP diastolic 58–98; PULSE 60–79; RESP 16–18; TEMP 36.8–39.4; O2SAT 97–100
[2022-06-15] MEDS: 0.9% Normal Saline 1,000 ML 100 ML IV ×2 (03:35→16:09)
[2022-06-15] MEDS: Menthol/Lanolin/Calamine/Znox 113 GM Tube 1 APPLIC TOPICAL ×3 (06:20→22:22)
[2022-06-15] MEDS: Acetaminophen 325 MG Tablet 650 MG PO (06:21)
[2022-06-15] MEDS: oxyCODONE 5 MG Tablet PO (06:21)
[2022-06-15 06:27] LABS: Absolute Lymphocyte Count 11.84 X10^3/uL (0.83-4.51); Absolute Neutrophil Count 5.1 X10^3/uL (2.0-7.7); Basophil# 0.02 X10^3/uL; Basophil% 0.1 % (0-1); Hematocrit 27.5 % (37-47); Hemoglobin 8.7 g/dL (12.0-15.0); Lymphocyte # 11.84 X10^3/ul (0.83-4.51); Lymphocyte % 68.8 % (19-41); Mean Corp Hgb Conc 31.6 g/dL (32-36); Mean Corpuscular Hgb 34.5 pg (27.0-32.0); Mean Corpuscular Volume 109.1 fL (81-99); Mean Platelet Vol. 10.6 fl (6.2-12.0); Monocyte# 0.23 X10^3/uL; Monocyte% 1.3 % (0-10); NRBC Flagged by Analyzer 0 % (0-5); Neutrophil # 5.06 X10^3/uL (2.7-7.7); Neutrophil % 29.4 % (47-70); POSITIVE COUNT YES; POSITIVE DIFFERENTIAL YES; Platelet Count 87 K/mm3 (150-450); RBC Distribution Width CV 15.7 % (11.6-14.6); Red Blood Count 2.52 M/mm3 (4.2-5.4); White Blood Count 17.2 K/mm3 (4.4-11.0)
[2022-06-15 06:31] LABS: Differential Indicated SCAN CRITERIA MET
[2022-06-15 07:04] LABS: Anion Gap 8 (5-15); BUN 51 mg/dL (7-18); BUN/Creat Ratio 17.5 RATIO (10-20); Calcium,Total 9.2 mg/dL (8.5-10.1); Chloride 106 mmol/L (98-107); Creatinine, Serum 2.91 mg/dL (0.55-1.02); EST Glomerular Filtration Rate 17 mL/min (>60); Est Glom Filt Rate - Afr Amer 20 mL/min (>60); Estimated Creatinine Clearance 14.67 ml/min; Glucose 182 mg/dL (74-106); Potassium 4.7 mmol/L (3.5-5.1); Sodium Level 137 mmol/L (136-145)
[2022-06-15 07:08] LABS: Differential Comment SCANNED
[2022-06-15 07:09] LABS: Anisocytosis 2+; Macrocytosis 2+
--- NOTE | 2022-06-15 07:35 | PCM.RX.CS ---
Consult Pharmacy has been consulted to manage selected antiobiotic: Vancomycin Type of Consult: New start Suspected Infection: Bacteremia Labs: Sodium 137 mmol/L (136-145) 06/15/22 06:15 Potassium 4.7 mmol/L (3.5-5.1) 06/15/22 06:15 Chloride 106 mmol/L (98-107) 06/15/22 06:15 Carbon Dioxide 23.0 mmol/L (21.0-32.0) 06/15/22 06:15 Anion Gap 8 (5-15) 06/15/22 06:15 BUN 51 mg/dL (7-18) H 06/15/22 06:15 Creatinine 2.91 mg/dL (0.55-1.02) H 06/15/22 06:15 Est GFR (MDRD) Af Amer 20 mL/min (>60) L 06/15/22 06:15 Est GFR (MDRD) Non-Af 17 mL/min (>60) L 06/15/22 06:15 BUN/Creatinine Ratio 17.5 RATIO (10-20) 06/15/22 06:15 Glucose 182 mg/dL (74-106) H 06/15/22 06:15 Microbiology: Microbiology 06/14/22 18:15 Blood Culture (Wb) - Anticubital Left Blood Culture - Preliminary 06/14/22 18:45 Blood Culture (Wb) - Anticubital Left Blood Culture - Preliminary 06/14/22 18:15 Nasal Secretion SARS-CoV-2 & FLU Antigen (Rapid) - Final Goal Trough: 15-20 mcg/mL Pharmacy Plan for Drug Dosing: NEW START IV VANCOMYCIN Consulting Physician: Dr. Gamboa Indication: Bacteremia Goal Trough: 15-20 SrCr: 2.09 CrCl: 14 mL/min Comments: Patient has OJ, is not currently getting HD treatment per notes in EMR. Vancomcyin Dose: 1250mg IV x1 initial dose ordered. Due to impaired renal function, will dose patient based on levels. Will put patient on scheduled dosing once SCr has stabilized. Pending Level: *RANDOM* level 06/17/22 with AM labs per protocol Pharmacy Service will continue to monitor and adjust dosing as required.
--- NOTE | 2022-06-15 08:07 | PCM.PN.HOSP ---
Subjective Subjective Follow-up on fever/acute metabolic encephalopathy: Patient was seen and examined. She is alert oriented x3. She complains of pain in the right scapular region. This is generalized, worse with movement. She has been having fever, T-max is 103.1F. Blood cultures came back preliminary positive. Objective Data Objective Data Vital Signs: Vital Signs Temp Pulse Resp BP Pulse Ox O2 Del Method 100.1 F H 79 18 156/98 H 100 Room Air 06/15/22 05:30 06/15/22 05:30 06/15/22 05:30 06/15/22 05:30 06/15/22 05:30 06/15/22 05:30 Oxygen Delivery Method Room Air Weight: 79.7 kg Body Mass Index (BMI) 28.2 Intake & Output: Intake and Output for Last 24 Hours 06/13/22 06/14/22 06/15/22 23:59 23:59 23:59 Intake Total 655 / 655 345 / 345 Output Total 50 / 50 Balance 655 / 655 295 / 295 Lab / Micro Data Result Diagrams: 06/15/22 06:15 06/15/22 06:15 Labs: Laboratory Results - last 24 hr 06/14/22 18:15: WBC 10.4, RBC 2.38 L, Hgb 8.5 L, Hct 26.3 L, MCV 110.5 H, MCH 35.7 H, MCHC 32.3, RDW Std Deviation 63.2 H, RDW Coeff of Jose 15.7 H, Plt Count 86 L, MPV 10.3, Immature Gran % (Auto) 0.100, Neut % (Auto) 31.2 L, Lymph % (Auto) 65.5 H, [place] % (Auto) 3.1, Eos % (Auto) 0.0, Baso % (Auto) 0.1, Absolute Neuts (auto) 3.2, Absolute Lymphs (auto) 6.80 H, Nucleated RBC % 0, Differential Comment SCANNED 06/14/22 18:15: PT 16.5 H, INR 1.4, APTT 41.8 H 06/14/22 18:15: Lactic Acid 2.7 H* 06/14/22 18:15: Urine Color Yellow, Urine Clarity Clear, Urine pH 6.5, Ur Specific Maxwell 1.010, Urine Protein 100 H, Urine Glucose (UA) Normal, Urine Ketones Negative, Urine Occult Blood 150 H, Urine Nitrite Negative, Urine Bilirubin Negative, Urine Urobilinogen Normal, Ur Leukocyte Esterase Negative, Urine RBC 50-100 SEEN, Urine WBC 0 SEEN, Ur Squamous Epith Cells 0 SEEN, Urine Bacteria RARE, Urine Mucus 0 SEEN 06/14/22 18:23: Sodium 138, Potassium 4.4, Chloride 105, Carbon Dioxide 24.0, Anion Gap 9, BUN 52 H, Creatinine 3.03 H, Estim Creat Clear Calc 14.09, Est GFR (MDRD) Af Amer 19 L, Est GFR (MDRD) Non-Af 16 L, BUN/Creatinine Ratio 17.2, Glucose 164 H, Calcium 9.8, Total Bilirubin 0.80, AST 81 H, ALT 62 H, Alkaline Phosphatase 122 H, Troponin I High Sens 24, Total Protein 6.3 L, Albumin 2.9 L, Globulin 3.4, Albumin/Globulin Ratio 0.9 06/14/22 21:30: COVID-19 (PADMA) Not Detected 06/14/22 22:40: Lactic Acid 2.0 06/15/22 06:15: WBC 17.2 H, RBC 2.52 L, Hgb 8.7 L, Hct 27.5 L, MCV 109.1 H, MCH 34.5 H, MCHC 31.6 L, RDW Std Deviation 63.0 H, RDW Coeff of Jose 15.7 H, Plt Count 87 L, MPV 10.6, Immature Gran % (Auto) 0.400, Neut % (Auto) 29.4 L, Lymph % (Auto) 68.8 H, [place] % (Auto) 1.3, Eos % (Auto) 0.0, Baso % (Auto) 0.1, Absolute Neuts (auto) 5.1, Absolute Lymphs (auto) 11.84 H, Nucleated RBC % 0, Differential Comment SCANNED, Anisocytosis 2+, Macrocytosis 2+ 06/15/22 06:15: Sodium 137, Potassium 4.7, Chloride 106, Carbon Dioxide 23.0, Anion Gap 8, BUN 51 H, Creatinine 2.91 H, Estim Creat Clear Calc 14.67, Est GFR (MDRD) Af Amer 20 L, Est GFR (MDRD) Non-Af 17 L, BUN/Creatinine Ratio 17.5, Glucose 182 H, Calcium 9.2, TSH 1.00 06/15/22 06:15: Ammonia 48.0 H Micro: Microbiology 06/14/22 18:15 Blood Culture (Wb) - Anticubital Left Blood Culture - Preliminary 06/14/22 18:45 Blood Culture (Wb) - Anticubital Left Blood Culture - Preliminary 06/14/22 18:15 Nasal Secretion SARS-CoV-2 & FLU Antigen (Rapid) - Final Radiography Diagnostic Testing: Radiology Impression Brain CT 06/14/22 18:23 IMPRESSION: There are no acute intracranial findings. Electronically Signed: Estevan Stewart MD at 19:11 EDT , Chest X-Ray 06/14/22 19:02 IMPRESSION: There are no acute findings. Electronically Signed: Estevan Stewart MD at 19:12 EDT , Rhythm Strip Rhythm Strip: A-fib Rate: 80 Ectopy: None Physical Exam Narrative Physical exam: General: Alert, Oriented x3, Cooperative, appears unwell, in pain HEENT: Atraumatic Oral: Moist Mucosa Neck: Supple Lungs: Diminished to auscultation Cardiovascular: HS I+II, regular, no murmurs Abdomen: Bowel Sounds Present, Soft, Non Tender Extremities: No edema Skin: No rashes, No breakdown Neurological: Grossly intact Psych/Mental Status: Appropriate Assessment & Plan Assessment/Plan (1) Encephalopathy acute: (2) Acute upper back pain: (3) OJ (acute kidney injury): (4) Febrile illness, acute: PLAN: Plan 1. Acute gram-positive cocci bacteremia, unclear etiology Patient with persistent fever. Chest x-ray and UA are unremarkable. Started on IV vancomycin, 2D echo Will wait on further speciation from blood cultures to determine if patient needs ID consult 2. OJ on CKD stage IV, slightly improved, likely prerenal from #1 Creatinine on admission at 3.03, creatinine 2.91 Continue 3. Acute metabolic encephalopathy, improved, alert, oriented x3 4. Generalised myalgia, likely secondary to #1 Will check CK 5. Elevated lactic acidosis, improved with hydration 6. Hypertension, continue on atenolol, hydralazine as needed 7. DVT PPx- Heparin SC Charges/Coding Visit Charges Inpatient E&M: 38440 Subs Hosp L2
[2022-06-15] MEDS: Orphenadrine 100 MG Tablet PO ×2 (09:13→22:21)
[2022-06-15] MEDS: Nystatin Powder 15gm Bottle 1 APPLIC TOPICAL ×2 (09:13→22:22)
[2022-06-15] MEDS: Allopurinol 100 MG Tablet PO (09:14)
[2022-06-15] MEDS: APIXABAN 5 MG TABLET PO ×2 (09:14→22:21)
[2022-06-15] MEDS: Multivitamins,Therapeutic Tablet 1 TABLET PO (09:14)
[2022-06-15] MEDS: Magnesium Chloride 64 MG Delay Rel.Tablet PO (09:14)
[2022-06-15] MEDS: Atenolol 50 MG Tablet PO (09:14)
--- NOTE | 2022-06-15 10:00 | ECHOCS_ITS ---
Reason For Study: Bacteremia Procedure This was a 2D Doppler, Color Flow transthoracic echocardiogram. The study was technically difficult. Exam performed portable in patient room. Left Ventricle Mild concentric left ventricular hypertrophy. The estimated ejection fraction is 55-60 %. Right Ventricle Normal right ventricle. Normal systolic function. Atria The left atrium is severely enlarged. The right atrium is mildly enlarged. Mitral Valve There is mild mitral annular calcification. Moderate (2+) eccentric mitral valve insufficiency. Tricuspid Valve Normal tricuspid valve. Moderate (2+) tricuspid valve insufficiency. Aortic Valve Moderate focal aortic valve calcification. Trivial aortic valve insufficiency. Pulmonic Valve The pulmonic valve is not well visualized. Great Vessels Normal aortic root. Pericardium/Pleural No pericardial effusion. Medication Diluted definity 2ml given slow IV push to enhance endocardial definition. MMode/2D Measurements & Calculations LVIDd: 5.4 cm IVSd: 1.5 cm LVOT diam: 2.0 cm LVIDs: 3.8 cm LVPWd: 1.3 cm FS: 29.8 % LVOT area: 3.2 cm2 Ao root diam: 3.6 cm LAV(MOD-bp): 217.0 ml LVAd ap4: 32.0 cm2 LAV(MOD-bp) Indexed: 114.8 ml/m2 LVLd ap4: 7.2 cm LAV(MOD-sp2): 184.6 ml EDV(MOD-sp4): 114.3 ml LAV(MOD-sp4): 227.5 ml EDV(sp4-el): 121.5 ml LVAs ap4: 18.5 cm2 LVLs ap4: 6.5 cm ESV(MOD-sp4): 42.6 ml ESV(sp4-el): 44.5 ml EF(MOD-sp4): 62.7 % EF(sp4-el): 63.3 % LVAd ap2: 30.8 cm2 SV(MOD-sp4): 71.7 ml SV(MOD-sp2): 57.8 ml LVLd ap2: 7.4 cm EDV(MOD-sp2): 105.2 ml EDV(sp2-el): 109.3 ml LVAs ap2: 19.6 cm2 LVLs ap2: 6.8 cm ESV(MOD-sp2): 47.4 ml ESV(sp2-el): 48.3 ml EF(MOD-sp2): 55.0 % SV(sp4-el): 77.0 ml LA dimension(2D): 6.3 cm LA A4 area: 49.0 cm2 RA A4 area: 32.2 cm2 Doppler Measurements & Calculations MV E max emma: 119.2 cm/sec Ao V2 max: 198.2 cm/sec LV V1 max: 87.2 cm/sec Ao max P.7 mmHg LV V1 max P.0 mmHg Ao V2 mean: 131.9 cm/sec LV V1 mean P.7 mmHg Ao mean P.0 mmHg LV V1 mean: 61.2 cm/sec Ao V2 VTI: 41.5 cm LV V1 VTI: 19.5 cm YASMINE(I,D): 1.5 cm2 YASMINE(V,D): 1.4 cm2 SV(LVOT): 61.8 ml PA V2 max: 73.1 cm/sec TR max emma: 211.5 cm/sec TR max P.9 mmHg ECHO/Echo Complete W/ Contrast Interpretation Summary The estimated ejection fraction is 55-60 %. Pace maker lead noted on R.side No obvious valvular vegetation Ordering Physician: Lizbeth Gamboa Referring Physician: Israel Bucio Performed By: Dee Weiss RDCS
[2022-06-15 10:22] LABS: CPK Total, Creatine Kinase 16 U/L (26-192)
[2022-06-15] MEDS: Lidocaine 5% Patch 2 PATCH TOPICAL (10:32)
[2022-06-15] MEDS: Ibuprofen 400 MG Tablet PO ×2 (10:41→22:24)
[2022-06-15] MEDS: 0.9% Saline Lock 10 ML Syringe IV (15:00)
[2022-06-15] MEDS: hydrOXYzine PAM 25 MG Capsule PO (17:30)
[2022-06-16] VITALS (7 sets, daily range): BP systolic 102–150; BP diastolic 69–95; PULSE 59–91; RESP 16–24; TEMP 36.4–37.5; O2SAT 94–98
[2022-06-16] MEDS: 0.9% Normal Saline 1,000 ML 100 ML IV ×2 (03:08→13:45)
[2022-06-16] MEDS: Menthol/Lanolin/Calamine/Znox 113 GM Tube 1 APPLIC TOPICAL ×3 (05:09→22:10)
[2022-06-16 06:50] LABS: Absolute Lymphocyte Count 29.12 X10^3/uL (0.83-4.51); Absolute Neutrophil Count 5.9 X10^3/uL (2.0-7.7); Basophil% 0.3 % (0-1); Eosinophil# 0.01 X10^3/uL; Hematocrit 29.5 % (37-47); Hemoglobin 9.4 g/dL (12.0-15.0); Lymphocyte # 29.12 X10^3/ul (0.83-4.51); Lymphocyte % 81.3 % (19-41); Mean Corp Hgb Conc 31.9 g/dL (32-36); Mean Corpuscular Hgb 34.9 pg (27.0-32.0); Mean Corpuscular Volume 109.7 fL (81-99); Mean Platelet Vol. 10.5 fl (6.2-12.0); Monocyte# 0.59 X10^3/uL; Monocyte% 1.6 % (0-10); NRBC Flagged by Analyzer 0 % (0-5); Neutrophil # 5.93 X10^3/uL (2.7-7.7); Neutrophil % 16.5 % (47-70); POSITIVE COUNT YES; POSITIVE DIFFERENTIAL YES; POSITIVE MORPHOLOGY YES; Platelet Count 112 K/mm3 (150-450); RBC Distribution Width CV 15.9 % (11.6-14.6); RBC Distribution Width SD 63.5 fl (35.1-43.9); Red Blood Count 2.69 M/mm3 (4.2-5.4); White Blood Count 35.8 K/mm3 (4.4-11.0)
[2022-06-16 07:07] LABS: Differential Indicated SCAN CRITERIA MET
[2022-06-16 07:17] LABS: ALB/GLOB Ratio 0.7 RATIO (0.9-2.4); AST(SGOT) 53 U/L (15-37); Alanine Aminotransfer ALT/SGPT 62 U/L (13-56); Albumin, Serum 2.6 g/dL (3.2-5.0); Alkaline Phosphatase 109 U/L (45-117); Anion Gap 6 (5-15); BUN 60 mg/dL (7-18); BUN/Creat Ratio 19.9 RATIO (10-20); Chloride 109 mmol/L (98-107); Creatinine, Serum 3.02 mg/dL (0.55-1.02); EST Glomerular Filtration Rate 16 mL/min (>60); Est Glom Filt Rate - Afr Amer 19 mL/min (>60); Estimated Creatinine Clearance 14.14 ml/min; Globulin 3.7 g/dL (2.2-4.2); Glucose 130 mg/dL (74-106); Potassium 4.6 mmol/L (3.5-5.1); Protein, Total 6.3 g/dL (6.4-8.2); Sodium Level 138 mmol/L (136-145)
[2022-06-16] MEDS: Multivitamins,Therapeutic Tablet 1 TABLET PO (08:01)
[2022-06-16] MEDS: Allopurinol 100 MG Tablet PO (08:01)
[2022-06-16 08:13] LABS: Macrocytosis 1+; Ovalocyte 1+; Platelet Estimate ADEQUATE (ADEQ); Poikilocytosis 1+; Polychromasia 1+
[2022-06-16] MEDS: APIXABAN 5 MG TABLET PO ×2 (11:17→22:09)
[2022-06-16] MEDS: Lidocaine 5% Patch 2 PATCH TOPICAL (11:18)
--- NOTE | 2022-06-16 11:18 | PN.HOSP_ITS ---
Subjective Subjective Follow-up on enterococcal bacteremia/UTI/acute metabolic encephalopathy: Patient was seen and examined. Her daughter was at the bedside. Still having low-grade fevers. Her pain is fairly controlled. No other acute events overnight. She complains of cough. Not on oxygen. Objective Data Objective Data Vital Signs: Vital Signs Temp Pulse Resp BP Pulse Ox O2 Del Method 99.5 F H 88 20 H 139/85 H 97 Room Air 06/16/22 11:15 06/16/22 11:15 06/16/22 11:15 06/16/22 11:15 06/16/22 11:15 06/16/22 11:15 Oxygen Delivery Method Room Air Weight: 79.7 kg Body Mass Index (BMI) 28.2 Intake & Output: Intake and Output for Last 24 Hours 06/14/22 06/15/22 06/16/22 23:59 23:59 23:59 Intake Total 655 / 655 2070.00 / 2070.00 1000 / 1000 Output Total 850 / 1250 650 / 650 Balance 655 / 655 1220.00 / 820.00 350 / 350 Lab / Micro Data Result Diagrams: 06/16/22 06:31 06/16/22 06:31 Labs: Laboratory Results - last 24 hr 06/16/22 06:31: WBC 35.8 H*, RBC 2.69 L, Hgb 9.4 L, Hct 29.5 L, MCV 109.7 H, MCH 34.9 H, MCHC 31.9 L, RDW Std Deviation 63.5 H, RDW Coeff of Jose 15.9 H, Plt Count 112 L, MPV 10.5, Immature Gran % (Auto) 0.300, Neut % (Auto) 16.5 L, Lymph % (Auto) 81.3 H, [place] % (Auto) 1.6, Eos % (Auto) 0.0, Baso % (Auto) 0.3, Absolute Neuts (auto) 5.9, Absolute Lymphs (auto) 29.12 H, Nucleated RBC % 0, Diff Path Review February, Platelet Estimate ADEQUATE, Polychromasia 1+, Poikilocytosis 1+, Macrocytosis 1+, Ovalocytes 1+ 06/16/22 06:31: Sodium 138, Potassium 4.6, Chloride 109 H, Carbon Dioxide 23.0, Anion Gap 6, BUN 60 H, Creatinine 3.02 H, Estim Creat Clear Calc 14.14, Est GFR (MDRD) Af Amer 19 L, Est GFR (MDRD) Non-Af 16 L, BUN/Creatinine Ratio 19.9, Glucose 130 H, Calcium 9.0, Total Bilirubin 0.60, AST 53 H, ALT 62 H, Alkaline Phosphatase 109, Total Protein 6.3 L, Albumin 2.6 L, Globulin 3.7, Albumin/Globulin Ratio 0.7 L Micro: Microbiology 06/14/22 18:15 Urine, Catheterized Urine Culture - Preliminary GPC Poss Enterococcus sp 06/14/22 18:45 Blood Culture (Wb) - Anticubital Left Blood Culture - Final GPC Poss Enterococcus sp 06/14/22 18:15 Blood Culture (Wb) - Anticubital Left Bacteria Detection (PCR) - Final Enterococcus faecalis 06/14/22 18:15 Blood Culture (Wb) - Anticubital Left Blood Culture - Preliminary Enterococcus faecalis 06/14/22 18:15 Nasal Secretion SARS-CoV-2 & FLU Antigen (Rapid) - Final Radiography Diagnostic Testing: Radiology Impression Echocardiogram 06/15/22 10:00 Interpretation Summary The estimated ejection fraction is 55-60 %. Pace maker lead noted on R.side No obvious valvular vegetation Ordering Physician: Lizbeth Gamboa Referring Physician: Israel Bucio Performed By: Dee Weiss, SIMIN Rhythm Strip Rhythm Strip: A-fib Rate: 80 Ectopy: None Physical Exam Narrative Physical exam: General: Alert, Oriented x3, Cooperative, appears very frail, pale, not jaundiced HEENT: Atraumatic Oral: Moist Mucosa Neck: Supple Lungs: Diminished to auscultation Cardiovascular: HS I+II, regular, no murmurs Abdomen: Bowel Sounds Present, Soft, Non Tender Extremities: No edema Skin: No rashes, No breakdown Neurological: Grossly intact Psych/Mental Status: Appropriate Assessment & Plan Assessment/Plan (1) Encephalopathy acute: (2) Acute upper back pain: (3) OJ (acute kidney injury): (4) Febrile illness, acute: PLAN: Plan 1. Acute Enterococcus bacteremia/UTI, patient still having low-grade fevers Admitting chest x-ray was unremarkable. 2D echo showed EF of 55 to 60% Continue on IV vancomycin Patient has allergy to penicillin 2. OJ on CKD stage IV, likely prerenal, Creatinine remains about the same at 3.02 Creatinine on admission is 3.03 Discontinue ibuprofen, continue to hold Lasix and metolazone, continue IV fluids Repeat blood work in a.m. Monitor weights to avoid fluid overload/acute CHF exacerbation 3. Acute metabolic encephalopathy, improved, alert, oriented x3 4. Generalised myalgia, likely secondary to #1 CK was 16, continue on Tylenol, Lidoderm patches for the back, norflex BID 5. Elevated lactic acidosis, improved with hydration 6. Chronic atrial fibrillation/sick sinus syndrome status post pacemaker/chronic heart failure preserved EF, EF 60% Continue on atenolol, apixaban 7. DVT PPx- On apixaban Charges/Coding Visit Charges Inpatient E&M: 32506 Subs Hosp L2
[2022-06-16] MEDS: Nystatin Powder 15gm Bottle 1 APPLIC TOPICAL ×2 (11:19→22:10)
[2022-06-16] MEDS: Magnesium Chloride 64 MG Delay Rel.Tablet PO (11:19)
[2022-06-16] MEDS: Atenolol 50 MG Tablet PO (11:20)
[2022-06-16] MEDS: Orphenadrine 100 MG Tablet PO ×2 (11:20→22:09)
[2022-06-16] MEDS: guaiFENesin 600 MG Tablet PO (14:28)
[2022-06-16] MEDS: Ondansetron 4 MG/2 ML Vial IV (14:47)
[2022-06-16] MEDS: oxyCODONE 5 MG Tablet PO (15:44)
[2022-06-16] MEDS: Acetaminophen 325 MG Tablet 650 MG PO (16:36)
[2022-06-16] MEDS: Senna/Docusate Sodium 1 Tablet 2 TABLET PO (22:09)
[2022-06-17] MEDS: 0.9% Normal Saline 1,000 ML 75 ML IV ×2 (02:00→16:53)
[2022-06-17 04:30] VITALS: BP 126/63; PULSE 63; RESP 18; TEMP 37.2; O2SAT 96
[2022-06-17] MEDS: Menthol/Lanolin/Calamine/Znox 113 GM Tube 1 APPLIC TOPICAL ×3 (04:53→22:43)
[2022-06-17] MEDS: Acetaminophen 325 MG Tablet 650 MG PO ×2 (04:54→21:32)
--- NOTE | 2022-06-17 05:07 | NURSING ---
Pt has felt constipated for past 24 hours, she was given senokot at bedtime and sit on BSC for an hour this am without results. Will give another dose and offer prune juice.
[2022-06-17 06:21] LABS: Absolute Lymphocyte Count 16.45 X10^3/uL (0.83-4.51); Absolute Neutrophil Count 3.5 X10^3/uL (2.0-7.7); Basophil# 0.04 X10^3/uL; Basophil% 0.2 % (0-1); Eosinophil# 0.06 X10^3/uL; Eosinophils% 0.3 % (0-5); Hematocrit 24.2 % (37-47); Hemoglobin 7.8 g/dL (12.0-15.0); Lymphocyte # 16.45 X10^3/ul (0.83-4.51); Mean Corp Hgb Conc 32.2 g/dL (32-36); Mean Corpuscular Volume 108.5 fL (81-99); Mean Platelet Vol. 11.1 fl (6.2-12.0); Monocyte# 0.43 X10^3/uL; Monocyte% 2.1 % (0-10); NRBC Flagged by Analyzer 0.1 % (0-5); Neutrophil # 3.52 X10^3/uL (2.7-7.7); Neutrophil % 17.2 % (47-70); POSITIVE COUNT YES; POSITIVE DIFFERENTIAL YES; POSITIVE MORPHOLOGY YES; Platelet Count 82 K/mm3 (150-450); RBC Distribution Width CV 15.8 % (11.6-14.6); RBC Distribution Width SD 61.3 fl (35.1-43.9); Red Blood Count 2.23 M/mm3 (4.2-5.4); White Blood Count 20.6 K/mm3 (4.4-11.0)
[2022-06-17 06:31] LABS: Differential Indicated SCAN CRITERIA MET
[2022-06-17 06:36] LABS: Anisocytosis 1+; Macrocytosis 2+; Platelet Estimate MOD DEC (ADEQ)
[2022-06-17 06:45] LABS: Vancomycin, Random Level 8.5 ug/mL (0.0-15.0)
[2022-06-17 06:50] LABS: ALB/GLOB Ratio 0.7 RATIO (0.9-2.4); AST(SGOT) 34 U/L (15-37); Alanine Aminotransfer ALT/SGPT 47 U/L (13-56); Albumin, Serum 2.3 g/dL (3.2-5.0); Alkaline Phosphatase 84 U/L (45-117); Anion Gap 7 (5-15); BUN 61 mg/dL (7-18); BUN/Creat Ratio 22.6 RATIO (10-20); Calcium,Total 8.3 mg/dL (8.5-10.1); Chloride 110 mmol/L (98-107); EST Glomerular Filtration Rate 18 mL/min (>60); Est Glom Filt Rate - Afr Amer 22 mL/min (>60); Estimated Creatinine Clearance 15.82 ml/min; Globulin 3.2 g/dL (2.2-4.2); Glucose 94 mg/dL (74-106); Potassium 4.5 mmol/L (3.5-5.1); Protein, Total 5.5 g/dL (6.4-8.2); Sodium Level 137 mmol/L (136-145)
--- NOTE | 2022-06-17 07:59 | PN.HOSP_ITS ---
Subjective Subjective Patient is a 77-year-old lady admitted with generalized weakness diagnosed with acute cystitis admitted to regular nursing floor. Subsequent work-up revealed enterococcal bacteremia Objective Data Objective Data Vital Signs: Vital Signs Temp Pulse Resp BP Pulse Ox O2 Del Method 99 F 63 18 126/63 H 96 Room Air 06/17/22 04:30 06/17/22 04:30 06/17/22 04:30 06/17/22 04:30 06/17/22 04:30 06/17/22 07:52 Oxygen Delivery Method Room Air Weight: 84.7 kg Body Mass Index (BMI) 28.2 Intake & Output: Intake and Output for Last 24 Hours 06/15/22 06/16/22 06/17/22 23:59 23:59 23:59 Intake Total 2070.00 / 2070.00 2896.67 / 2896.67 746.25 / 746.25 Output Total 850 / 1250 1150 / 1400 550 / 550 Balance 1220.00 / 820.00 1746.67 / 1496.67 196.25 / 196.25 Lab / Micro Data Result Diagrams: 06/17/22 05:20 06/17/22 05:20 Labs: Laboratory Results - last 24 hr 06/16/22 06:31: Diff Path Review February, Platelet Estimate ADEQUATE, Polychromasia 1+, Poikilocytosis 1+, Macrocytosis 1+, Ovalocytes 1+ 06/17/22 05:20: Random Vancomycin 8.5 06/17/22 05:20: WBC 20.6 H, RBC 2.23 L, Hgb 7.8 L, Hct 24.2 L, MCV 108.5 H, MCH 35.0 H, MCHC 32.2, RDW Std Deviation 61.3 H, RDW Coeff of Jose 15.8 H, Plt Count 82 L, MPV 11.1, Immature Gran % (Auto) 0.200, Neut % (Auto) 17.2 L, Lymph % (Auto) 80.0 H, [place] % (Auto) 2.1, Eos % (Auto) 0.3, Baso % (Auto) 0.2, Absolute Neuts (auto) 3.5, Absolute Lymphs (auto) 16.45 H, Nucleated RBC % 0.1, Platelet Estimate MOD DEC, Anisocytosis 1+, Macrocytosis 2+ 06/17/22 05:20: Sodium 137, Potassium 4.5, Chloride 110 H, Carbon Dioxide 20.0 L , Anion Gap 7, BUN 61 H, Creatinine 2.70 H, Estim Creat Clear Calc 15.82, Est GFR (MDRD) Af Amer 22 L, Est GFR (MDRD) Non-Af 18 L, BUN/Creatinine Ratio 22.6 H , Glucose 94, Calcium 8.3 L, Total Bilirubin 0.60, AST 34, ALT 47, Alkaline Phosphatase 84, Total Protein 5.5 L, Albumin 2.3 L, Globulin 3.2, Albumin/Globulin Ratio 0.7 L Micro: Microbiology 06/14/22 18:15 Blood Culture (Wb) - Anticubital Left Bacteria Detection (PCR) - Final Enterococcus faecalis 06/14/22 18:15 Blood Culture (Wb) - Anticubital Left Blood Culture - Preliminary Enterococcus faecalis 06/14/22 18:15 Urine, Catheterized Urine Culture - Final Enterococcus faecalis 06/14/22 18:45 Blood Culture (Wb) - Anticubital Left Blood Culture - Final GPC Poss Enterococcus sp 06/14/22 18:15 Nasal Secretion SARS-CoV-2 & FLU Antigen (Rapid) - Final Rhythm Strip Rhythm Strip: A-fib Rate: 80 Ectopy: None Physical Exam Narrative GENERAL: cooperative HEENT: Atraumatic; EYES; Anicteric, Normal Conjunctiva NECK; supple, normal thyroid, RESPIRATORY: Diminished to auscultation CARDIOVASCULAR: Regular S1 S2, GI: soft, normoactive bowel sounds, : No Renal angle tenderness; EXTREMITIES: No edema, no clubbing, MUSCULOSKELETAL: no muscle wasting NEURO: Awake; no lateralizing signs. SKIN: No Rash PSYCH; Flat affect Assessment & Plan Assessment/Plan (1) Encephalopathy acute: (2) Acute upper back pain: (3) OJ (acute kidney injury): (4) Febrile illness, acute: PLAN: Plan Patient is a 77-year-old lady admitted with generalized weakness diagnosed with acute cystitis admitted to regular nursing floor. Subsequent work-up revealed enterococcal bacteremia 1. Acute cystitis with Enterococcus with bacteremia ? Patient has been managed with IV vancomycin (apparently allergic to penicillin) had a transthoracic echo with no evidence of endocarditis 2. Acute kidney injury ? Superimposed on chronic kidney disease stage IV. Baseline creatinine around 2. Patient creatinine peaked at 3.02 on IV fluid with subsequent monitoring of electrolytes ordered 3. Acute metabolic encephalopathy ? Secondary to #1 and #2 above. Plan is to treat underlying etiology 4. Anemia - Secondary to chronic disorder monitoring H&H and transfuse if patient becomes symptomatic or hemoglobin falls below 7 5. Paroxysmal A. fib ? Rate controlled, on systemic anticoagulation with apixaban 6. Physical deconditioning - Requested for PT OT eval and psychiatric social worker supervisor to assist with discharge planning 7. Sick sinus syndrome ? Status post pacemaker placement 8. Hypertension - Blood pressure controlled, home medications continued with dose adjustment as needed 9. Chronic congestive heart failure with preserved ejection fraction ? Has known EF of 60% currently stable 10. Gout ? Patient is on allopurinol 11. DVT prophylaxis ? On apixaban Charges/Coding Visit Charges Inpatient E&M: 27353 Subs Hosp L2
[2022-06-17] MEDS: Allopurinol 100 MG Tablet PO (08:00)
[2022-06-17] MEDS: Multivitamins,Therapeutic Tablet 1 TABLET PO (08:00)
[2022-06-17 09:48] VITALS: BP 118/74; PULSE 59; RESP 18; TEMP 36.5; O2SAT 100
[2022-06-17 10:00] VITALS: PULSE 59
[2022-06-17] MEDS: Orphenadrine 100 MG Tablet PO ×2 (10:09→21:36)
[2022-06-17] MEDS: APIXABAN 5 MG TABLET PO (10:09)
[2022-06-17] MEDS: Magnesium Chloride 64 MG Delay Rel.Tablet PO (10:09)
[2022-06-17] MEDS: Lidocaine 5% Patch 2 PATCH TOPICAL (10:09)
[2022-06-17] MEDS: Atenolol 50 MG Tablet PO (10:09)
[2022-06-17] MEDS: Calcitriol 0.25 MCG Capsule PO (10:09)
[2022-06-17] MEDS: Nystatin Powder 15gm Bottle 1 APPLIC TOPICAL ×2 (10:15→22:43)
--- NOTE | 2022-06-17 10:35 | CASEMGMT ---
RN CM Face to Face with patient for initial transition planning/care coordination assessment. RN CM introduced self and role at [facility]. Patient sitting in chair, alert and oriented, daughter at bedside. Patient willing to participate in assessment and is able to answer all questions appropriately. Care providers, pharmacy, and demographics verified. Patient wishes to discharge home, will monitor for possible HHC pending ID recommendations for ATBs. Patient was provided a list of HHC providers including quality and resource use data and consistent with the patient?s preferred geographic region, medical needs, and insurance network. Patient and daughter to review and provide preferences. Patient states she has no further needs or concerns at this time. CM to follow for discharge planning needs that may arise. PCP: Fortunato Specialists: Nicole, oncologist; Christine, service desk lead; Gianfranco, plate shop helper Preferred Pharmacy: [facility] [place] Insurance: [employer] Prescription Benefit: yes Living Will/HPOA: none LNOK: daughters Living Arrangements: Patient lives alone in a Triplex house on the first floor, no steps to enter. Patient states she is independent at home. Transportation: self, daughter DME/HHC: Patient states she has raised toilet, cane, and walker, at home. No previous HHC or SNF. Daughter states she has done IV ATBS in the past at home. Disposition Plan: Patient to discharge home with family support and follow-up plans in place. Will monitor for HHC pending ATB recommendations. Palak HAYNES, RN, CM
--- NOTE | 2022-06-17 11:17 | CON.PCM.ID_ITS ---
Assessment & Plan Assessment/Plan (1) Encephalopathy acute: (2) OJ (acute kidney injury): (3) Enterococcal bacteremia: PLAN: OJ starting to improve. Unclear source of bacteremia. Will repeat bcx. Fever and encephalopathy improved. TTE showed no veg. Will check JULES given presence of pacer. On vanc. Pt reports rash with PCN as a child, no issues with amoxicillin as an adult. Will change to amp/ceftriaxone while echo pending. Will follow, thank you, d/w field case manager (4) Presence of permanent cardiac pacemaker: HPI Consult Data Date of Consult: 06/17/22 HPI Narrative Reason for Consultation: bacteremia HPI Narrative: ENRICO MEEKS, is a 77 F with afib, pacer, and CLL, presented 06/14 with one day of fever, bilat shoulder pain, and confusion. No recent procedures, no issues with pacer, no dysuria/urine changes. No n/v/d, no abd pain, no rash. Taken to ED, admitted on vanc. TTE done. Bcx with enterococcus. Feeling better, fever resolved, mental status improved. Additional history obtained from daughter at bedside. Full ROS performed and neg except as noted above. [facility] Medical History (Updated 06/17/22 @ 11:[address] Ulisses Farrell MD) Atrial fibrillation Chronic dizziness CLL (chronic lymphocytic leukemia) COVID-19 (10/13/20) Hypertension Kidney disease Lesion of pancreas Nausea Pacemaker Proteinuria Renal insufficiency Shingles Shingles (herpes zoster) polyneuropathy Sick sinus syndrome Home Medications multivitamin with folic acid 400 mcg tablet 1 tab PO DAILY supplement 07/18/14 [History Last Taken 06/30/20] allopurinol 100 mg tablet 100 mg PO DAILYCM gout 01/20/17 [History Last Taken 06/30/20] acetaminophen 325 mg tablet 650 mg PO Q6H PRN PRN Pain Score 1-10/Temp > 100.7 F 07/19/20 [Rx Last Taken Unknown] calcitriol 0.25 mcg capsule 0.25 mcg PO .COMPLEX supplement 12/04/20 [History Last Taken Unknown] atenolol 50 mg tablet 50 mg PO DAILY 02/18/22 [History Last Taken Unknown] coenzyme Q10 100 mg tablet 100 mg PO DAILY 02/18/22 [History Last Taken Unknown] furosemide 80 mg tablet 80 mg PO BID 02/18/22 [History Last Taken Unknown] hydroxyzine HCl 25 mg tablet 25 mg PO QHS PRN Anxiety 02/18/22 [History Last Taken Unknown] magnesium oxide 250 mg PO DAILY 02/18/22 [History Last Taken Unknown] metolazone 5 mg tablet 2.5 mg PO .COMPLEX PRN PRN 02/18/22 [History Last Taken Unknown] potassium chloride 20 mEq tablet,extended release(part/cryst) 60 meq PO BID supplement 02/18/22 [History Last Taken Unknown] cholecalciferol (vitamin D3) 50 mcg (2,000 unit) tablet 1,000 unit PO DAILY 03/11/22 [History Last Taken Unknown] apixaban 5 mg tablet (Eliquis) 5 mg PO BID #180 tabs 03/13/22 [Rx Last Taken Unk nown] Allergy/AdvReac Type Severity Reaction Status Date / Time losartan AdvReac Severe Severe Verified 06/14/22 17:05 nausea, GI upset, anorexia erythromycin base AdvReac Intermediate Unknown Verified 06/14/22 17:05 [Erythromycin Base] Penicillins AdvReac Mild Rash Verified 06/17/22 11:18 Family History Mother Hypertension Heart disease Father Diabetes Myocardial infarction Surgical History History of cardioversion (03/02/19) History of cholecystectomy History of hysterectomy History of parathyroid surgery Presence of permanent cardiac pacemaker (~07/06/20) Social History Smoking Status: Never smoker alcohol intake: never substance use type: does not use caffeine: No Physical Exam Const alert, oriented x3 and no apparent distress General Appearance: cooperative HEENT normocephalic and head/scalp atraumatic Eyes PERRL and EOMs intact bilaterally Neck supple and No nodes Resp normal air movement and clear to auscultation bilaterally Cardio regular rate and regular rhythm Heart Sounds: murmur GI soft to palpation, non-tender and non-distended Extremity General Extremity: edema Skin no rashes or lesions noted Skin Narrative: no splinter hemorrhages on hands or feet Neuro CN's II-XII intact bilaterally Lab / Micro Data Attestation: I reviewed the patient's lab results. Result Diagrams: 06/17/22 05:20 06/17/22 05:20 Labs: Laboratory Results - last 24 hr 06/17/22 05:20: Random Vancomycin 8.5 06/17/22 05:20: WBC 20.6 H, RBC 2.23 L, Hgb 7.8 L, Hct 24.2 L, MCV 108.5 H, MCH 35.0 H, MCHC 32.2, RDW Std Deviation 61.3 H, RDW Coeff of Jose 15.8 H, Plt Count 82 L, MPV 11.1, Immature Gran % (Auto) 0.200, Neut % (Auto) 17.2 L, Lymph % (Auto) 80.0 H, [place] % (Auto) 2.1, Eos % (Auto) 0.3, Baso % (Auto) 0.2, Absolute Neuts (auto) 3.5, Absolute Lymphs (auto) 16.45 H, Nucleated RBC % 0.1, Platelet Estimate MOD DEC, Anisocytosis 1+, Macrocytosis 2+ 06/17/22 05:20: Sodium 137, Potassium 4.5, Chloride 110 H, Carbon Dioxide 20.0 L , Anion Gap 7, BUN 61 H, Creatinine 2.70 H, Estim Creat Clear Calc 15.82, Est GFR (MDRD) Af Amer 22 L, Est GFR (MDRD) Non-Af 18 L, BUN/Creatinine Ratio 22.6 H , Glucose 94, Calcium 8.3 L, Total Bilirubin 0.60, AST 34, ALT 47, Alkaline Edith sphatase 84, Total Protein 5.5 L, Albumin 2.3 L, Globulin 3.2, Albumin/Globulin Ratio 0.7 L Micro: Microbiology 06/14/22 18:15 Blood Culture (Wb) - Anticubital Left Bacteria Detection (PCR) - Final Enterococcus faecalis 06/14/22 18:15 Blood Culture (Wb) - Anticubital Left Blood Culture - Preliminary Enterococcus faecalis 06/14/22 18:15 Urine, Catheterized Urine Culture - Final Enterococcus faecalis Rhythm Strip Rhythm Strip: A-fib Rate: 80 Ectopy: None
[2022-06-17] MEDS: Ondansetron 4 MG/2 ML Vial IV (11:23)
[2022-06-17] MEDS: 0.9% Saline Lock 10 ML Syringe IV ×2 (11:23→18:21)
[2022-06-17] MEDS: Lactulose 20 GM/30 ML UDC PO (12:48)
[2022-06-17 15:21] VITALS: BP 137/69; PULSE 62; RESP 15; TEMP 37.3; O2SAT 98
--- NOTE | 2022-06-17 16:28 | CASEMGMT ---
Social Work POA for Healthcare scanned into summary tab of echart, and living will provision is checked off. Pt has Nupur Garrett listed as medical POA. CHELSEA Moran
--- NOTE | 2022-06-17 17:33 | CON.PCM_ITS ---
Assessment & Plan Assessment/Plan (1) Anemia: PLAN: Her anemia is multifactorial. Her hemoglobin is decreasing. She does have a macrocytic anemia possibly associated with atrophic gastritis, with a relative B12 and possible folate decrease. This would be expected in the setting of an older woman with CLL. I would request that she gets a fecal occult stool test for blood. She does not want to have any invasive procedures at this time but she is going to have a JULES tomorrow. I am okay with her continue PPI therapy for gastritis. (2) Nausea: PLAN: I think her nausea is secondary to narcotic bowel syndrome associated with narcotics that she is taking for her shoulder pain. As an outpatient I will sta rt her on Movantik or Relistor. However we do not have those on formulary. I will put her on scheduled scopolamine patch with scheduled Reglan IV therapy. (3) Lack of appetite: PLAN: I will put her on 15 mg of mirtazapine and possibly add it twice a day with addition of prednisolone if her upper endoscopy does not show any signs of significant inflammation in her bacteremia is improved without any signs of infection on JULES or on blood cultures. PLAN: Plan I will continue to follow and the plan will be to perform endoscopy, as I do not think she will consent to a colonoscopy and an endoscopy. HPI Consult Data Date of Consult: 06/17/22 HPI Narrative Reason for Consultation: Anemia HPI Narrative: ENRICO MEEKS, is a 77 F who presents with right shoulder pain and fevers. She was diagnosed with CLL in the mid-.? She had treatment with Leukeran, FCR and FR.? She had progressive disease in December 2011, treated with Treanda followed by Rituxan.? She had progressive disease again in December 2014 and was started on Ibrutinib with hematologic remission.? She developed A-Fib and under the care of Dr. Vaibhav King.? So Ibrutinib was discontinued on 08/03/2018. ? She was in hospital for CHF and cardioversion.? She had shingles with R upper extremity weakness. 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 She is on observation.? She currently is on Eliquis for anticoagulation secondary to A. fib. I was asked to see her due to progressive anemia. She has had some dark stools but was on iron as an outpatient. She denies any abdominal pain. But she does complain of intermittent constipation. Her daughters were at the bedside all worried about her poor appetite and constant nausea over the last 2 years. She does not need medicine as an outpatient for her shoulder and back pain. FORMERLY [facility], [facility]–1983 Medical History (Updated 06/17/22 @ 17:[address] Duenas Friend, DO) Atrial fibrillation Chronic dizziness CLL (chronic lymphocytic leukemia) COVID-19 (10/13/20) Hypertension Kidney disease Lesion of pancreas Nausea Pacemaker Proteinuria Renal insufficiency Shingles Shingles (herpes zoster) polyneuropathy Sick sinus syndrome Home Medications multivitamin with folic acid 400 mcg tablet 1 tab PO DAILY supplement 07/18/14 [History Last Taken 06/30/20] allopurinol 100 mg tablet 100 mg PO DAILYCM gout 01/20/17 [History Last Taken 06/30/20] acetaminophen 325 mg tablet 650 mg PO Q6H PRN PRN Pain Score 1-10/Temp > 100.7 F 07/19/20 [Rx Last Taken Unknown] calcitriol 0.25 mcg capsule 0.25 mcg PO .COMPLEX supplement 12/04/20 [History La st Taken Unknown] atenolol 50 mg tablet 50 mg PO DAILY 02/18/22 [History Last Taken Unknown] coenzyme Q10 100 mg tablet 100 mg PO DAILY 02/18/22 [History Last Taken Unknown] furosemide 80 mg tablet 80 mg PO BID 02/18/22 [History Last Taken Unknown] hydroxyzine HCl 25 mg tablet 25 mg PO QHS PRN Anxiety 02/18/22 [History Last Taken Unknown] magnesium oxide 250 mg PO DAILY 02/18/22 [History Last Taken Unknown] metolazone 5 mg tablet 2.5 mg PO .COMPLEX PRN PRN 02/18/22 [History Last Taken Unknown] potassium chloride 20 mEq tablet,extended release(part/cryst) 60 meq PO BID supplement 02/18/22 [History Last Taken Unknown] cholecalciferol (vitamin D3) 50 mcg (2,000 unit) tablet 1,000 unit PO DAILY 03/11/22 [History Last Taken Unknown] apixaban 5 mg tablet (Eliquis) 5 mg PO BID #180 tabs 03/13/22 [Rx Last Taken Unknown] Allergy/AdvReac Type Severity Reaction Status Date / Time losartan AdvReac Severe Severe Verified 06/14/22 17:05 nausea, GI upset, anorexia erythromycin base AdvReac Intermediate Unknown Verified 06/14/22 17:05 [Erythromycin Base] Penicillins AdvReac Mild Rash Verified 06/17/22 11:18 Family History Mother Hypertension Heart disease Father Diabetes Myocardial infarction Surgical History History of cardioversion (03/02/19) History of cholecystectomy History of hysterectomy History of parathyroid surgery Presence of permanent cardiac pacemaker (~07/06/20) Social History Smoking Status: Never smoker alcohol intake: never substance use type: does not use caffeine: No ROS ROS Narrative Pertinent positives and pertinent negatives as noted in HPI. All other systems were reviewed and are negative Physical Exam Const alert, oriented x3 and no apparent distress General Appearance: cooperative HEENT normocephalic and head/scalp atraumatic Eyes PERRL and EOMs intact bilaterally Neck supple and No nodes Resp normal air movement and clear to auscultation bilaterally Cardio regular rate and regular rhythm Heart Sounds: murmur GI soft to palpation, non-tender and non-distended Extremity General Extremity: edema Skin no rashes or lesions noted Skin Narrative: no splinter hemorrhages on hands or feet Neuro CN's II-XII intact bilaterally Lab / Micro Data Result Diagrams: 06/17/22 05:20 06/17/22 05:20 Labs: Laboratory Results - last 24 hr 06/17/22 05:20: Random Vancomycin 8.5 06/17/22 05:20: WBC 20.6 H, RBC 2.23 L, Hgb 7.8 L, Hct 24.2 L, MCV 108.5 H, MCH 35.0 H, MCHC 32.2, RDW Std Deviation 61.3 H, RDW Coeff of Jose 15.8 H, Plt Count 82 L, MPV 11.1, Immature Gran % (Auto) 0.200, Neut % (Auto) 17.2 L, Lymph % (Auto) 80.0 H, [place] % (Auto) 2.1, Eos % (Auto) 0.3, Baso % (Auto) 0.2, Absolute Neuts (auto) 3.5, Absolute Lymphs (auto) 16.45 H, Nucleated RBC % 0.1, Platelet Estimate MOD DEC, Anisocytosis 1+, Macrocytosis 2+ 06/17/22 05:20: Sodium 137, Potassium 4.5, Chloride 110 H, Carbon Dioxide 20.0 L , Anion Gap 7, BUN 61 H, Creatinine 2.70 H, Estim Creat Clear Calc 15.82, Est GFR (MDRD) Af Amer 22 L, Est GFR (MDRD) Non-Af 18 L, BUN/Creatinine Ratio 22.6 H , Glucose 94, Calcium 8.3 L, Total Bilirubin 0.60, AST 34, ALT 47, Alkaline Phosphatase 84, Total Protein 5.5 L, Albumin 2.3 L, Globulin 3.2, Albumin/Globulin Ratio 0.7 L Micro: Microbiology 06/14/22 18:15 Blood Culture (Wb) - Anticubital Left Bacteria Detection (PCR) - Final Enterococcus faecalis 06/14/22 18:15 Blood Culture (Wb) - Anticubital Left Blood Culture - Preliminary Enterococcus faecalis 06/14/22 18:15 Urine, Catheterized Urine Culture - Final Enterococcus faecalis Rhythm Strip Rhythm Strip: A-fib Rate: 80 Ectopy: None Charges/Coding Visit Charges Inpatient E&M: 41176 Init Hosp L3
[2022-06-17] MEDS: Metoclopramide 10 MG/2 ML Vial 5 MG IV (18:21)
[2022-06-17] MEDS: Scopolamine 1mg/72hr Patch 1 PATCH TD (18:21)
[2022-06-17 21:27] VITALS: BP 133/60; PULSE 62; RESP 18; TEMP 37.4; O2SAT 98
[2022-06-17] MEDS: oxyCODONE 5 MG Tablet PO (21:31)
[2022-06-17] MEDS: Mirtazapine 15 MG Tablet PO (21:36)
[2022-06-17] MEDS: APIXABAN 2.5 MG TABLET PO (21:36)
[2022-06-18] VITALS (7 sets, daily range): BP systolic 105–134; BP diastolic 57–75; PULSE 59–66; RESP 16–18; TEMP 36.9–37.4; O2SAT 93–99
[2022-06-18] MEDS: Metoclopramide 10 MG/2 ML Vial 5 MG IV ×5 (00:33→23:43)
[2022-06-18] MEDS: 0.9% Saline Lock 10 ML Syringe IV ×4 (00:34→23:44)
--- NOTE | 2022-06-18 00:59 | PCM.PN.BLA ---
Progress Note Nurse reports positive occult stools. Hold Eliquis for A. fib. Protonix ordered. SCDs ordered. CBC already ordered in AM.
[2022-06-18] MEDS: 0.9% Normal Saline 1,000 ML 75 ML IV ×2 (05:34→23:32)
[2022-06-18] MEDS: Menthol/Lanolin/Calamine/Znox 113 GM Tube 1 APPLIC TOPICAL ×3 (05:36→22:35)
[2022-06-18 05:48] LABS: Absolute Lymphocyte Count 12.41 X10^3/uL (0.83-4.51); Absolute Neutrophil Count 3.1 X10^3/uL (2.0-7.7); Basophil# 0.02 X10^3/uL; Basophil% 0.1 % (0-1); Eosinophil# 0.15 X10^3/uL; Eosinophils% 0.9 % (0-5); Hemoglobin 7.7 g/dL (12.0-15.0); Lymphocyte # 12.41 X10^3/ul (0.83-4.51); Lymphocyte % 77.7 % (19-41); Mean Corp Hgb Conc 30.8 g/dL (32-36); Mean Corpuscular Hgb 34.4 pg (27.0-32.0); Mean Corpuscular Volume 111.6 fL (81-99); Mean Platelet Vol. 10.2 fl (6.2-12.0); Monocyte# 0.25 X10^3/uL; Monocyte% 1.6 % (0-10); NRBC Flagged by Analyzer 0 % (0-5); Neutrophil % 19.4 % (47-70); POSITIVE COUNT YES; POSITIVE DIFFERENTIAL YES; POSITIVE MORPHOLOGY YES; Platelet Count 74 K/mm3 (150-450); RBC Distribution Width SD 65.5 fl (35.1-43.9); Red Blood Count 2.24 M/mm3 (4.2-5.4)
[2022-06-18 05:54] LABS: Differential Indicated SCAN CRITERIA MET
[2022-06-18 06:14] LABS: Anion Gap 6 (5-15); BUN 60 mg/dL (7-18); BUN/Creat Ratio 24.1 RATIO (10-20); Calcium,Total 8.3 mg/dL (8.5-10.1); Chloride 113 mmol/L (98-107); Creatinine, Serum 2.49 mg/dL (0.55-1.02); EST Glomerular Filtration Rate 20 mL/min (>60); Est Glom Filt Rate - Afr Amer 24 mL/min (>60); Estimated Creatinine Clearance 17.15 ml/min; Glucose 85 mg/dL (74-106); Magnesium 2.5 mg/dL (1.6-2.6); Potassium 4.2 mmol/L (3.5-5.1); Sodium Level 140 mmol/L (136-145)
[2022-06-18 06:36] LABS: Anisocytosis 1+; Macrocytosis 2+
--- NOTE | 2022-06-18 07:36 | PCM.PN.HOSP ---
Subjective Subjective Patient was seen in consultation by Dr. Farrell with infectious disease recommended repeating blood cultures and for patient to undergo JULES. Was also seen in consultation by GI notes and recommendations reviewed Objective Data Objective Data Vital Signs: Vital Signs Temp Pulse Resp BP Pulse Ox O2 Del Method 98.8 F 60 16 124/57 H 99 Room Air 06/18/22 05:32 06/18/22 05:32 06/18/22 05:32 06/18/22 05:32 06/18/22 05:32 06/18/22 05:32 Oxygen Delivery Method Room Air Weight: 84.5 kg Body Mass Index (BMI) 28.2 Intake & Output: Intake and Output for Last 24 Hours 06/16/22 06/17/22 06/18/22 23:59 23:59 23:59 Intake Total 2896.67 / 2896.67 3588.75 / 3588.75 567.5 / 567.5 Output Total 1150 / 1400 800 / 800 200 / 200 Balance 1746.67 / 1496.67 2788.75 / 2788.75 367.5 / 367.5 Lab / Micro Data Result Diagrams: 06/18/22 05:25 06/18/22 05:25 Labs: Laboratory Results - last 24 hr 06/18/22 05:25: WBC 16.0 H, RBC 2.24 L, Hgb 7.7 L, Hct 25.0 L, MCV 111.6 H, MCH 34.4 H, MCHC 30.8 L, RDW Std Deviation 65.5 H, RDW Coeff of Jose 16.0 H, Plt Count 74 L, MPV 10.2, Immature Gran % (Auto) 0.300, Neut % (Auto) 19.4 L, Lymph % (Auto) 77.7 H, [place] % (Auto) 1.6, Eos % (Auto) 0.9, Baso % (Auto) 0.1, Absolute Neuts (auto) 3.1, Absolute Lymphs (auto) 12.41 H, Nucleated RBC % 0, Anisocytosis 1+, Macrocytosis 2+ 06/18/22 05:25: Sodium 140, Potassium 4.2, Chloride 113 H, Carbon Dioxide 21.0, Anion Gap 6, BUN 60 H, Creatinine 2.49 H, Estim Creat Clear Calc 17.15, Est GFR (MDRD) Af Amer 24 L, Est GFR (MDRD) Non-Af 20 L, BUN/Creatinine Ratio 24.1 H, Glucose 85, Calcium 8.3 L, Magnesium 2.5 Micro: Microbiology 06/17/22 17:45 Stool Stool Occult Blood (CHERIE) - Final Occult Blood Positive 06/14/22 18:15 Blood Culture (Wb) - Anticubital Left Bacteria Detection (PCR) - Final Enterococcus faecalis 06/14/22 18:15 Blood Culture (Wb) - Anticubital Left Blood Culture - Preliminary Enterococcus faecalis 06/14/22 18:15 Urine, Catheterized Urine Culture - Final Enterococcus faecalis 06/14/22 18:45 Blood Culture (Wb) - Anticubital Left Blood Culture - Final GPC Poss Enterococcus sp 06/14/22 18:15 Nasal Secretion SARS-CoV-2 & FLU Antigen (Rapid) - Final Rhythm Strip Rhythm Strip: A-fib Rate: 80 Ectopy: None Physical Exam Narrative GENERAL: cooperative HEENT: Atraumatic; EYES; Anicteric, Normal Conjunctiva NECK; supple, normal thyroid, RESPIRATORY: Diminished to auscultation CARDIOVASCULAR: Regular S1 S2, GI: soft, normoactive bowel sounds, : No Renal angle tenderness; EXTREMITIES: No edema, no clubbing, MUSCULOSKELETAL: no muscle wasting NEURO: Awake; no lateralizing signs. SKIN: No Rash PSYCH; Flat affect Assessment & Plan Assessment/Plan (1) Encephalopathy acute: (2) Acute upper back pain: (3) OJ (acute kidney injury): (4) Febrile illness, acute: PLAN: Plan Patient is a 77-year-old lady admitted with generalized weakness diagnosed with acute cystitis admitted to regular nursing floor. Subsequent work-up revealed enterococcal bacteremia 1. Acute cystitis with Enterococcus with bacteremia ? Patient has been managed with IV vancomycin (apparently allergic to penicillin) had a transthoracic echo with no evidence of endocarditis ? 06/18/2022; patient was seen in consultation by Dr. Farrell with infectious disease recommended for patient to undergo subsequent evaluation with a JULES. Repeat blood cultures sent. He also adjusted patient antibiotic therapy 2. Acute kidney injury ? Superimposed on chronic kidney disease stage IV. Baseline creatinine around 2. Patient creatinine peaked at 3.02 on IV fluid with subsequent monitoring of electrolytes ordered 3. Acute metabolic encephalopathy ? Secondary to #1 and #2 above. Plan is to treat underlying etiology 4. Anemia - Secondary to chronic disorder monitoring H&H and transfuse if patient becomes symptomatic or hemoglobin falls below 7 5. Paroxysmal A. fib ? Rate controlled, on systemic anticoagulation with apixaban 6. Physical deconditioning - Requested for PT OT eval and web content & social media manager to assist with discharge planning 7. Sick sinus syndrome ? Status post pacemaker placement 8. Hypertension - Blood pressure controlled, home medications continued with dose adjustment as needed 9. Chronic congestive heart failure with preserved ejection fraction ? Has known EF of 60% currently stable 10. Gout ? Patient is on allopurinol 11. DVT prophylaxis ? On apixaban 12. Persistent nausea ? Consult was placed to GI notes and recommendations from Dr. Aleman reviewed Charges/Coding Visit Charges Inpatient E&M: 98239 Subs Hosp L2
--- NOTE | 2022-06-18 08:00 | ECHOTEE_ITS ---
[id number] ECHO^ECHOTEE^Echo Transesophageal (JULES) [id number] Reason For Study: Bacteremia w/ Pacer Medication JULES probe 6VT-D (SN [id number]) passed with minimal difficulty. No complications were noted. Cetacaine Topical [place] given X3 orally. Versed 1 mg given slow IVP. Fentanyl 50 mcg given slow IVP. Performed a rapid injection of agitated mix of 9 cc saline and 1cc air to assess for atrial septal defect. Left Ventricle Normal LV size. Left ventricular systolic function is normal. The estimated ejection fraction is 55 %. No regional wall motion abnormalities noted. Right Ventricle Normal RV size. ICD or pacer leads identified within the right ventricle. Normal systolic function. Atria No doppler evidence for ASD. Bubble contrast study negative for right to left interatrial shunt. The left atrium is severely enlarged. There is no sponatenous contrast in the left atrium. No thrombus is detected in the left atrial appendage. The right atrium is severely enlarged. There is no sponatenous contrast in the right atrium. No RA/appendage thrombus identified. ICD or pacer leads identified within the right atrium. Mitral Valve There is mild mitral annular calcification. Mild diffuse mitral valve thickening. Moderately severe (3+) eccentric mitral valve insufficiency. Tricuspid Valve Normal tricuspid valve. Moderate (2+) tricuspid valve insufficiency. Aortic Valve Trisinus/trileaflet aortic valve. Mild diffuse aortic valve thickening. Moderate focal aortic valve calcification. Pulmonic Valve The pulmonic valve is not well visualized. Vessels Normal-appearing thoracic aorta. Pericardium No pericardial effusion. ECHO/Echo Transesophageal (JULES) Interpretation Summary Left ventricular systolic function is normal. The estimated ejection fraction is 55 %. The left atrium is severely enlarged. There is no sponatenous contrast in the left atrium. No thrombus is detected in the left atrial appendage. The right atrium is severely enlarged. There is mild mitral annular calcification. Mild diffuse mitral valve thickening. Moderately severe (3+) eccentric mitral valve insufficiency. Moderate (2+) tricuspid valve insufficiency. Mild diffuse aortic valve thickening. Moderate focal aortic valve calcification. Bubble contrast study negative for right to left interatrial shunt. ICD or pacer leads identified within the right atrium ICD or pacer leads identified within the right ventricle. Comment: No obvious 2D echocardiographic findings appreciated considered compat ible with the echocardiographic findings of infectious endocarditis. Ordering Physician: Ulisses Farrell Performed By: Lauri Ferraro RCS
[2022-06-18 09:04] LABS: Pathologist Review Reviewed
--- NOTE | 2022-06-18 10:19 | PN.ID_ITS ---
Physical Exam Narrative Feeling ok, no rash or itching. JULES this AM. No fever. Const alert and no apparent distress Resp normal air movement and clear to auscultation bilaterally Cardio regular rate and regular rhythm Heart Sounds: murmur GI soft to palpation, non-tender and non-distended Skin no rashes or lesions noted ID ID: Route of nutrition/ use of supplements: [] Nutritional Intake: [] IV Site: [] Nogueira Catheter: [] Assessment & Plan Assessment/Plan (1) Encephalopathy acute: (2) OJ (acute kidney injury): (3) Enterococcal bacteremia: PLAN: OJ improved. Unclear source of bacteremia. Repeat bcx neg so far. Fever and encephalopathy improved. TTE showed no veg. JULES this AM with no valve or device involvement per Dr. King. Pt reports rash with PCN as a child, no issues with amoxicillin as an adult. Stop ceftriaxone. Cont ampicillin while inpatient. Ok for home with amoxicillin 500mg bid for 10 more days. Will follow, d/w employment case manager (4) Presence of permanent cardiac pacemaker:
[2022-06-18] MEDS: Magnesium Chloride 64 MG Delay Rel.Tablet PO (10:59)
[2022-06-18] MEDS: Lidocaine 5% Patch 2 PATCH TOPICAL (10:59)
[2022-06-18] MEDS: Multivitamins,Therapeutic Tablet 1 TABLET PO (10:59)
[2022-06-18] MEDS: Allopurinol 100 MG Tablet PO (10:59)
[2022-06-18] MEDS: Orphenadrine 100 MG Tablet PO ×2 (10:59→22:34)
[2022-06-18] MEDS: Nystatin Powder 15gm Bottle 1 APPLIC TOPICAL ×2 (11:00→22:34)
[2022-06-18] MEDS: Atenolol 50 MG Tablet PO (11:01)
--- NOTE | 2022-06-18 11:18 | CASEMGMT ---
RN CM in to pt room, pt with family at bedside. Pt denies any homegoing needs and family agrees.
--- NOTE | 2022-06-18 16:28 | NURSING ---
scopalamine patch removed per MD order d/t increased confusion.
[2022-06-18] MEDS: Mirtazapine 15 MG Tablet PO (22:39)
[2022-06-18] MEDS: oxyCODONE 5 MG Tablet PO (23:43)
[2022-06-19] VITALS (7 sets, daily range): BP systolic 134–150; BP diastolic 68–87; PULSE 59–61; RESP 14–20; TEMP 36.6–37; O2SAT 95–99
[2022-06-19 05:52] LABS: Absolute Lymphocyte Count 12.47 X10^3/uL (0.83-4.51); Absolute Neutrophil Count 3.1 X10^3/uL (2.0-7.7); Basophil# 0.01 X10^3/uL; Basophil% 0.1 % (0-1); Eosinophils% 1.2 % (0-5); Hematocrit 23.8 % (37-47); Hemoglobin 7.5 g/dL (12.0-15.0); Lymphocyte # 12.47 X10^3/ul (0.83-4.51); Lymphocyte % 77.3 % (19-41); Mean Corp Hgb Conc 31.5 g/dL (32-36); Mean Corpuscular Volume 111.2 fL (81-99); Mean Platelet Vol. 10.8 fl (6.2-12.0); Monocyte% 1.9 % (0-10); NRBC Flagged by Analyzer 0 % (0-5); Neutrophil # 3.11 X10^3/uL (2.7-7.7); Neutrophil % 19.3 % (47-70); POSITIVE COUNT YES; POSITIVE DIFFERENTIAL YES; POSITIVE MORPHOLOGY YES; Platelet Count 75 K/mm3 (150-450); RBC Distribution Width CV 15.8 % (11.6-14.6); RBC Distribution Width SD 62.8 fl (35.1-43.9); Red Blood Count 2.14 M/mm3 (4.2-5.4); White Blood Count 16.1 K/mm3 (4.4-11.0)
[2022-06-19 05:55] LABS: Differential Indicated SCAN CRITERIA MET
[2022-06-19] MEDS: Menthol/Lanolin/Calamine/Znox 113 GM Tube 1 APPLIC TOPICAL ×3 (06:18→21:23)
[2022-06-19] MEDS: Metoclopramide 10 MG/2 ML Vial 5 MG IV ×4 (06:18→23:33)
[2022-06-19] MEDS: 0.9% Saline Lock 10 ML Syringe IV ×3 (06:18→18:36)
[2022-06-19 06:19] LABS: Anion Gap 5 (5-15); Anisocytosis 1+; BUN 50 mg/dL (7-18); BUN/Creat Ratio 23.1 RATIO (10-20); Calcium,Total 8.4 mg/dL (8.5-10.1); Chloride 117 mmol/L (98-107); Creatinine, Serum 2.16 mg/dL (0.55-1.02); EST Glomerular Filtration Rate 23 mL/min (>60); Est Glom Filt Rate - Afr Amer 28 mL/min (>60); Estimated Creatinine Clearance 19.77 ml/min; Glucose 106 mg/dL (74-106); Macrocytosis 2+; Potassium 4.2 mmol/L (3.5-5.1); Sodium Level 143 mmol/L (136-145)
[2022-06-19] MEDS: Lidocaine 5% Patch 2 PATCH TOPICAL (09:43)
[2022-06-19] MEDS: Multivitamins,Therapeutic Tablet 1 TABLET PO (09:43)
[2022-06-19] MEDS: Orphenadrine 100 MG Tablet PO ×2 (09:43→21:22)
[2022-06-19] MEDS: Atenolol 50 MG Tablet PO (09:43)
[2022-06-19] MEDS: Allopurinol 100 MG Tablet PO (09:43)
[2022-06-19] MEDS: Calcitriol 0.25 MCG Capsule PO (09:43)
[2022-06-19] MEDS: Magnesium Chloride 64 MG Delay Rel.Tablet PO (09:43)
[2022-06-19] MEDS: Nystatin Powder 15gm Bottle 1 APPLIC TOPICAL ×2 (09:44→21:23)
[2022-06-19] MEDS: 0.9% Normal Saline 1,000 ML 75 ML IV (12:10)
--- NOTE | 2022-06-19 13:02 | PCM.PN.ID ---
Physical Exam Narrative Feeling ok, no fever, some blood in stool yesterday Const alert and no apparent distress Resp normal air movement and clear to auscultation bilaterally Cardio regular rate and regular rhythm GI soft to palpation, non-tender and non-distended Skin no rashes or lesions noted ID ID: Route of nutrition/ use of supplements: [] Nutritional Intake: [] IV Site: [] Nogueira Catheter: [] Assessment & Plan Assessment/Plan (1) Encephalopathy acute: (2) OJ (acute kidney injury): (3) Enterococcal bacteremia: PLAN: OJ improved. Unclear source of bacteremia. Repeat bcx (+) from 06/17. Fever and encephalopathy improved. TTE showed no veg. JULES 06/18 with no valve or device involvement per Dr. King. Pt reports rash with PCN as a child, no issues with amoxicillin as an adult. Cont ampicillin while inpatient. Repeat bcx yesterday pending, will repeat today. With GI bleed, ongoing bacteremia, and unclear source of this infection, will check CT abd/pelvis with po contrast. Will follow, d/w primary team (4) Presence of permanent cardiac pacemaker:
--- NOTE | 2022-06-19 13:07 | CT_ITS ---
EXAM: CT ABDOMEN AND PELVIS WITHOUT INTRAVENOUS CONTRAST CLINICAL INDICATION: bacteremia, GI bleed TECHNIQUE: Helically acquired images were obtained of the abdomen and pelvis without intravenous contrast. This CT exam was performed using one or more of the following dose reduction techniques: automated exposure control, adjustment of the mA and/or kV according to patient size, and/or use of iterative reconstruction technique. This report was created using [employer] report generation technology. CONTRAST: Oral Gastrografin COMPARISON: 07/14/2020. FINDINGS: LOWER THORAX: Small bilateral pleural effusions. Mild bibasilar atelectasis. Moderate cardiac enlargement. ABDOMEN: LIVER: Unremarkable. Homogeneous. GALLBLADDER AND BILE DUCTS: Unremarkable. No calcified gallstones. No gallbladder distention or wall edema. No intra- or extrahepatic biliary ductal dilation. PANCREAS: Unremarkable. No focal cystic mass. SPLEEN: Unremarkable. Normal size without focal cystic or solid mass. ADRENALS: Unremarkable. No nodules. KIDNEYS AND URETERS: Severe left renal atrophy. Low-attenuation lesions in the right kidney measure up to 3.3 cm. No renal stones or hydronephrosis. STOMACH AND BOWEL: Unremarkable. No stomach or bowel distention. No focal inflammatory change. PELVIS: APPENDIX: No evidence of acute appendicitis. BLADDER: Unremarkable. REPRODUCTIVE: Unremarkable as visualized. No mass. ABDOMEN and PELVIS: INTRAPERITONEAL SPACE: Trace ascites. No free air. BONES/JOINTS: Severe osteoarthrosis of the left hip. Moderate osteoarthrosis of the right hip. Mild degenerative changes of the lumbar spine. Mild degenerative anterolisthesis at L4-5. No suspicious lytic or blastic abnormality. SOFT TISSUES: Unremarkable. No discrete abdominal or pelvic wall hernia. VASCULATURE: Unremarkable. Abdominal aorta is normal in caliber. LYMPH NODES: Unremarkable. No enlarged lymph nodes. CT/Abdomen/Pel W ORAL Cont Only IMPRESSION: 1. Pleural effusions. 2. Trace ascites. 3. Renal hypodensities not characterized without contrast. Follow-up is not indicated per ACR guidelines. 4. Additional chronic findings noted above. Electronically Signed: Jenni Moore MD at 17:24 EDT Reading Location ID and State: [id number] / Tel , Service support ,
--- NOTE | 2022-06-19 15:25 | NURSING ---
Patient taken to CT at this time via bed.
--- NOTE | 2022-06-19 18:00 | PCM.PN.HOSP ---
Subjective Subjective Seen and examined today, I briefly talked with infectious diseases about her care, because of her recent positive blood culture, infectious diseases wants to continue her on IV antibiotics at this time and reevaluate her tomorrow. I asked the patient about perhaps going to a skilled care facility for short-term inpatient skilled rehab services, patient refused. Patient's family are in the room at the time of my discussion and state that they feel she is too weak to go home, patient is not confused and appears to be able to make her own decisions. Objective Data Objective Data Vital Signs: Vital Signs Temp Pulse Resp BP Pulse Ox O2 Del Method 98.6 F 59 L 20 H 134/78 H 99 Room Air 06/19/22 15:14 06/19/22 15:14 06/19/22 15:14 06/19/22 15:14 06/19/22 15:14 06/19/22 15:14 Oxygen Delivery Method Room Air Weight: 84.5 kg Body Mass Index (BMI) 28.2 Intake & Output: Intake and Output for Last 24 Hours 06/17/22 06/18/22 06/19/22 23:59 23:59 23:59 Intake Total 3588.75 / 3588.75 2937.50 / 2937.50 1157.5 / 1157.5 Output Total 800 / 800 350 / 550 500 / 500 Balance 2788.75 / 2788.75 2587.50 / 2387.50 657.5 / 657.5 Lab / Micro Data Result Diagrams: 06/19/22 05:33 06/19/22 05:33 Labs: Laboratory Results - last 24 hr 06/19/22 05:33: WBC 16.1 H, RBC 2.14 L, Hgb 7.5 L, Hct 23.8 L, MCV 111.2 H, MCH 35.0 H, MCHC 31.5 L, RDW Std Deviation 62.8 H, RDW Coeff of Jose 15.8 H, Plt Count 75 L, MPV 10.8, Immature Gran % (Auto) 0.200, Neut % (Auto) 19.3 L, Lymph % (Auto) 77.3 H, Wheeler % (Auto) 1.9, Eos % (Auto) 1.2, Baso % (Auto) 0.1, Absolute Neuts (auto) 3.1, Absolute Lymphs (auto) 12.47 H, Nucleated RBC % 0, Anisocytosis 1+, Macrocytosis 2+ 06/19/22 05:33: Sodium 143, Potassium 4.2, Chloride 117 H, Carbon Dioxide 21.0, Anion Gap 5, BUN 50 H, Creatinine 2.16 H, Estim Creat Clear Calc 19.77, Est GFR (MDRD) Af Amer 28 L, Est GFR (MDRD) Non-Af 23 L, BUN/Creatinine Ratio 23.1 H, Glucose 106, Calcium 8.4 L Micro: Microbiology 06/14/22 18:15 Blood Culture (Wb) - Anticubital Left Bacteria Detection (PCR) - Final Enterococcus faecalis 06/14/22 18:15 Blood Culture (Wb) - Anticubital Left Blood Culture - Final Enterococcus faecalis 06/17/22 10:20 Blood Culture (Wb) - Right Hand Blood Culture - Preliminary Gram Positive Cocci 06/17/22 17:45 Stool Stool Occult Blood (CHERIE) - Final Occult Blood Positive 06/14/22 18:15 Urine, Catheterized Urine Culture - Final Enterococcus faecalis 06/14/22 18:45 Blood Culture (Wb) - Anticubital Left Blood Culture - Final GPC Poss Enterococcus sp 06/14/22 18:15 Nasal Secretion SARS-CoV-2 & FLU Antigen (Rapid) - Final Radiography Diagnostic Testing: Radiology Impression Abdomen CT 06/19/22 13:07 IMPRESSION: 1. Pleural effusions. 2. Trace ascites. 3. Renal hypodensities not characterized without contrast. Follow-up is not indicated per ACR guidelines. 4. Additional chronic findings noted above. Electronically Signed: Jenni Moore MD at 17:24 EDT Reading Location ID and State: [id number] / Tel , Service support , Rhythm Strip Rhythm Strip: A-fib Rate: 80 Ectopy: None Physical Exam Const alert, oriented x3 and no apparent distress General Appearance: cooperative, well kempt and well developed Orientation / Consciousness: awake, oriented to person, oriented to place and oriented to time HEENT normocephalic, head/scalp atraumatic and moist oral mucous membranes Eyes PERRL, EOMs intact bilaterally and conjunctivae normal Neck supple, no JVD, thyroid normal and no carotid bruits General: trachea midline Resp normal respiratory effort, no retractions, no use of accessory muscles and clear to auscultation bilaterally Auscultation: Negative for rales, rhonchi or wheezes Cardio regular rate, regular rhythm, S1 normal heart sound, S2 normal heart sound, no murmurs, no rub and no gallops GI normal to inspection, nondistended, normoactive bowel sounds, soft to palpation, non-tender and non-distended Extremity no clubbing, cyanosis or edema Skin no rashes or lesions noted General Skin Exam: no breakdown Neuro oriented x3, CN's II-XII intact bilaterally, moves all extremities, no focal motor deficits and no sensory deficits noted Sensorium / Orientation: awake, alert, oriented to person, oriented to place and oriented to time Speech: speech normal Psych affect normal Assessment & Plan Assessment/Plan (1) Enterococcal bacteremia: PLAN: Plan 1. Enterococcal bacteremia-continue antibiotic coverage per infectious diseases #2 acute cystitis with Enterococcus-continue antibiotic coverage per infectious diseases #3 acute kidney injury superimposed on chronic kidney disease stage IV-continue to monitor kidney function, continue IV fluids at this time #4 chronic anemia-etiology unclear at this point, I will order iron studies on the patient, her last iron studies were in October 2021 and it showed a normal iron level. #5 generalized debility-patient refuses to consider going to an extended care facility for short-term rehab services, continue PT and OT #6 essential hypertension-continue present medications Charges/Coding Visit Charges Inpatient E&M: 03575 Subs Hosp L2
[2022-06-19 18:36] LABS: Iron 30 ug/dL (50-170); Iron Binding Capacity,Total 256 ug/dL (250-450); PERCENT IRON SATURATION 11.7 % (15.0-55.0)
[2022-06-19] MEDS: oxyCODONE 5 MG Tablet PO (20:01)
[2022-06-19] MEDS: Mirtazapine 15 MG Tablet PO (21:23)
[2022-06-20] VITALS (13 sets, daily range): BP systolic 118–155; BP diastolic 62–99; PULSE 60–62; RESP 16–18; TEMP 36.4–37.1; O2SAT 93–99
--- NOTE | 2022-06-20 | ESO_PTH ---
PATIENT: ENRICO MEEKS LOC: 3 U#:[id number] AGE/SX: 77/F [place] [facility] [place]17[place]: Dr. Pedro Galicia DO : 1945 BED: 1 DIS: 06/21/2022 SPEC #: [id number] RECD: 06/20/22 17:53 STATUS: LENCHO REQ #: [id number] RAMSES: 06/20/22 00:[address]: Henrique Aleman DEPT: SURGICAL PATHOLOGY RECD BY: Dayo Damico ENTERED: 06/21/22 09:01 SP TYPE: ESOPH BX OTHR DR: MD Dr. Gerhard Medrano MD Dr. Joseph Agyepong, MD Dr. Mark Tereletsky, DO Dr. Nolan Byler, DO Dr. Robert Leininger, MD Tissues: Esophagus, NOS Procedures: Special Stain Group II Surgery Specimen Level IV Alcian Blue/PAS (control) Comments: @ Ordering doctor for SUIV edited from to @ by PITA at 06/21/22 1428 @ Submitting doctor edited from to @ by MATHEWOD at 06/21/22 1428 HEADER OPERATION[place] [place] DIAGNOSIS: Anemia TISSUE SUBMITTED: Distal esophagus biopsy MICROSCOPIC DIAGNOSIS Distal esophagus, biopsy: Fragments of gastroesophageal mucosa with chronic inflammation. Intestinal metaplasia (goblet cell metaplasia) not identified. See comment. Magalys 06/24/2022 COMMENT Alcian blue/PAS stain with matched control is used in the evaluation of the specimen. MICROSCOPIC DESCRIPTION Slides are reviewed. GROSS DESCRIPTION Received in fixative is one container labeled with the patient's name and designated distal esophagus biopsy. The specimen consists of multiple irregular fragments of light gillespie soft tissue that in aggregate measure 1 x 0.3 x 0.1 cm. The specimen is totally submitted in one cassette. / SHARI:bebo 06/21/2022 TC:3 CPT: 21067, 75838
[2022-06-20] MEDS: 0.9% Normal Saline 1,000 ML 75 ML IV (02:17)
[2022-06-20 05:34] LABS: Absolute Lymphocyte Count 12.49 X10^3/uL (0.83-4.51); Absolute Neutrophil Count 2.7 X10^3/uL (2.0-7.7); Basophil# 0.02 X10^3/uL; Basophil% 0.1 % (0-1); Differential Indicated SCAN CRITERIA MET; Eosinophil# 0.17 X10^3/uL; Eosinophils% 1.1 % (0-5); Hematocrit 24.9 % (37-47); Hemoglobin 7.6 g/dL (12.0-15.0); Lymphocyte # 12.49 X10^3/ul (0.83-4.51); Lymphocyte % 80.1 % (19-41); Mean Corp Hgb Conc 30.5 g/dL (32-36); Mean Corpuscular Hgb 34.9 pg (27.0-32.0); Mean Corpuscular Volume 114.2 fL (81-99); Mean Platelet Vol. 11.1 fl (6.2-12.0); Monocyte% 1.3 % (0-10); NRBC Flagged by Analyzer 0.1 % (0-5); Neutrophil # 2.67 X10^3/uL (2.7-7.7); Neutrophil % 17.1 % (47-70); POSITIVE COUNT YES; POSITIVE DIFFERENTIAL YES; POSITIVE MORPHOLOGY YES; Platelet Count 68 K/mm3 (150-450); RBC Distribution Width CV 15.9 % (11.6-14.6); RBC Distribution Width SD 65.8 fl (35.1-43.9); Red Blood Count 2.18 M/mm3 (4.2-5.4); White Blood Count 15.6 K/mm3 (4.4-11.0)
[2022-06-20 05:53] LABS: Anion Gap 5 (5-15); BUN 45 mg/dL (7-18); BUN/Creat Ratio 23.8 RATIO (10-20); Calcium,Total 8.3 mg/dL (8.5-10.1); Chloride 116 mmol/L (98-107); Creatinine, Serum 1.89 mg/dL (0.55-1.02); EST Glomerular Filtration Rate 27 mL/min (>60); Est Glom Filt Rate - Afr Amer 33 mL/min (>60); Estimated Creatinine Clearance 22.59 ml/min; Glucose 104 mg/dL (74-106); Potassium 4.2 mmol/L (3.5-5.1); Sodium Level 141 mmol/L (136-145)
[2022-06-20 05:54] LABS: Anisocytosis 2+; Macrocytosis 2+
[2022-06-20 05:55] LABS: Platelet Estimate MOD DEC (ADEQ)
[2022-06-20] MEDS: Menthol/Lanolin/Calamine/Znox 113 GM Tube 1 APPLIC TOPICAL ×2 (06:10→21:22)
[2022-06-20] MEDS: Metoclopramide 10 MG/2 ML Vial 5 MG IV (06:11)
[2022-06-20 08:22] LABS: Ferritin 185 ng/mL (8-252)
[2022-06-20] MEDS: Lidocaine 5% Patch 2 PATCH TOPICAL (08:23)
[2022-06-20] MEDS: Allopurinol 100 MG Tablet PO (08:23)
[2022-06-20] MEDS: Multivitamins,Therapeutic Tablet 1 TABLET PO (08:23)
[2022-06-20] MEDS: Nystatin Powder 15gm Bottle 1 APPLIC TOPICAL ×2 (08:24→21:25)
[2022-06-20] MEDS: Magnesium Chloride 64 MG Delay Rel.Tablet PO (08:24)
[2022-06-20] MEDS: Orphenadrine 100 MG Tablet PO ×2 (08:25→21:21)
[2022-06-20] MEDS: oxyCODONE 5 MG Tablet PO (08:40)
[2022-06-20] MEDS: Atenolol 50 MG Tablet PO (09:40)
--- NOTE | 2022-06-20 10:19 | PCM.PN.ID ---
Physical Exam Narrative Feeling ok, still some soreness in R trapezius, no fever. Const alert and no apparent distress Resp normal air movement and clear to auscultation bilaterally Cardio regular rate and regular rhythm GI soft to palpation, non-tender and non-distended Extremity Extremity Narrative: No pain/swelling in R shoulder. No cervical tenderness. Mild tenderness over R trapezius. Skin no rashes or lesions noted ID ID: Route of nutrition/ use of supplements: [] Nutritional Intake: [] IV Site: [] Nogueira Catheter: [] Assessment & Plan Assessment/Plan (1) Encephalopathy acute: (2) OJ (acute kidney injury): (3) Enterococcal bacteremia: PLAN: OJ improved. Unclear source of bacteremia. Repeat bcx (+) from 06/17. Fever and encephalopathy improved. TTE showed no veg. JULES 06/18 with no valve or device involvement per Dr. King. Pt reports rash with PCN as a child, no issues with amoxicillin as an adult. Cont ampicillin while inpatient. Repeat bcx 06/18 and 06/[address] abd/pelvis neg for source of infection. At this point, ok for home with 2 weeks po amox 500mg bid. Will follow, d/w primary team (4) Presence of permanent cardiac pacemaker:
--- NOTE | 2022-06-20 11:55 | CASEMGMT ---
Social Work Dr. Galicia informed this SW pt chose [facility] for SNF at discharge. SW printed list through [employer] and went in to pt room to confirm. SW spoke to pt's daughter as pt was sleeping and daughter declined to wake pt. Pt's daughter was provided a list of?SNF?providers including quality and resource use data that is consistent with the patient?s preferred geographic region, medical needs, and insurance network. The daughter confirmed patient?s preferred provider is?[facility]. MAJOR reached out to Barbara at [facility]. Barbara reviewed pt med list and reported pt is accepted. Barbara asked about admit time for pt and MAJOR updated that pt's iron was low and has not reported she is medically ready at this time. PLAN: TCU [facility]
--- NOTE | 2022-06-20 16:50 | OP.EGD_ITS ---
Patient Name: Julissa Limon Procedure Date: 06/20/2022 3:57 PM Date of : 1945 Age: 77 Procedure: Upper GI endoscopy Indications: Acute post hemorrhagic anemia, Iron deficiency anemia Providers: Henrique Aleman DO Medicines: Monitored Anesthesia Care Patient Profile: This is a 77 year old female. Refer to note in patient chart for documentation of history and physical. Patient has symptoms. The symptoms first began 03,. Complications: No immediate complications. Procedure: Pre-Anesthesia Assessment: - Prior to the procedure, a History and Physical was performed, and patient medications and allergies were reviewed. The risks and benefits of the procedure and the sedation options and risks were discussed with the patient. All questions were answered and informed consent was obtained. Patient identification and proposed procedure were verified by the physician in the pre-procedure area. Mental Status Examination: alert and oriented. Airway Examination: normal oropharyngeal airway and neck mobility. Respiratory Examination: clear to auscultation. CV Examination: normal. Prophylactic Antibiotics: The patient does not require prophylactic antibiotics. Prior Anticoagulants: The patient has taken no previous anticoagulant or antiplatelet agents. After reviewing the risks and benefits, the patient was deemed in satisfactory condition to undergo the procedure. The anesthesia plan was to use moderate sedation / analgesia (conscious sedation). Immediately prior to administration of medications, the patient was re-assessed for adequacy to receive sedatives. The heart rate, respiratory rate, oxygen saturations, blood pressure, adequacy of pulmonary ventilation, and response to care were monitored throughout the procedure. The physical status of the patient was re-assessed after the procedure. After obtaining informed consent, the endoscope was passed under direct vision. Throughout the procedure, the patient's blood pressure, pulse, and oxygen saturations were monitored continuously. The Endoscope was introduced through the mouth, and advanced to the second part of duodenum. The upper GI endoscopy was accomplished without difficulty. The patient tolerated the procedure well. Scope In: 4:19:26 PM Scope Out: 4:29:44 PM Total Procedure Duration Time 0 hours 10 minutes 18 seconds Findings: Grade I varices were found in the lower third of the esophagus. They were 4 mm in largest diameter. The Z-line was irregular and was found 38 cm from the incisors. Biopsies were taken with a cold forceps for histology. Verification of patient identification for the specimen was done. Estimated blood loss was minimal. A moderate Schatzki ring was found in the lower third of the esophagus. A guidewire was placed and the scope was withdrawn. Dilation was performed with a Savary dilator with no resistance at 42 Fr. The dilation site was examined following endoscope reinsertion and showed moderate improvement in luminal narrowing. Estimated blood loss was minimal. A medium-sized hiatal hernia was present. Red blood was found on the lesser curvature of the stomach. Two 5 mm bleeding angiodysplastic lesions were found in the gastric body and on the lesser curvature of the stomach. The second portion of the duodenum was normal. Impression: - Grade I esophageal varices. - Z-line irregular, 38 cm from the incisors. Biopsied. - Moderate Schatzki ring. Dilated. - Medium-sized hiatal hernia. - Red blood in the lesser curvature of the stomach. 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 - Normal second portion of the duodenum. Recommendation: - Return patient to [facility] for ongoing care. - Resume previous diet. - Use Protonix (pantoprazole) 40 mg PO BID. - Consider Dopplers of the hepatic vein and portal vein to evaluate for any signs of thrombosis. Normally distal esophageal varices develop from portal hypertension. Also recommend blood work to see if she has any pre-existing disease other than CLL ans splenic infarction as she is known to have that would lead to portal hypertension. - Causes of portal hypertension: Prehepatic: Portal vein obstruction (EHPVO) or massive splenomegaly with increased splenic vein blood flow Posthepatic: Severe right-sided heart failure, constrictive pericarditis, and hepatic vein obstruction (Budd-Chiari syndrome) Intrahepatic: Cirrhosis accounts for most cases of portal hypertension. Less frequent causes are schistosomiasis, massive fatty change, diseases affecting portal microcirculation as nodular regenerative hyperplasia and diffuse fibrosing granulomatous disease as sarcoidosis.[5] Other rare causes of portal hypertension include: Rico disease Alpha-1 antitrypsin deficiency Primary biliary cirrhosis Tuberculosis Constrictive pericarditis - Continue present medications. Procedure Code(s): --- Professional --- 01620, Esophagogastroduodenoscopy, flexible, transoral; with insertion of guide wire followed by passage of dilator(s) through esophagus over guide wire 57792, 59,51, Esophagogastroduodenoscopy, flexible, transoral; with biopsy, single or multiple CPT copyright 2017 [employer]. All rights reserved. The codes documented in this report are preliminary and upon electrical solderer review may be revised to meet current compliance requirements. Henrique Aleman DO 06/20/2022 4:49:24 PM This report has been signed electronically. Number of Addenda: 1 Note Initiated On: 06/20/2022 3:57 PM Addendum Number: 1 Addendum Date: 08/01/2022 6:04:47 AM MAC was used as sedation for this procedure. Henrique Aleman DO 08/01/2022 6:04:50 AM This report has been signed electronically.
--- NOTE | 2022-06-20 16:50 | OP.CCLET_ITS ---
08/01/2022 Israel Bucio Re : Upper GI endoscopy procedure for Julissa Limon Dear Fortunato This procedure was performed on May. My impressions and recommendations are as follows: Impressions : - Grade I esophageal varices. - Z-line irregular, 38 cm from the incisors. Biopsied. - Moderate Schatzki ring. Dilated. - Medium-sized hiatal hernia. - Red blood in the lesser curvature of the stomach. 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 - Normal second portion of the duodenum. Recommendations : - Return patient to [facility] for ongoing care. - Resume previous diet. - Use Protonix (pantoprazole) 40 mg PO BID. - Consider Dopplers of the hepatic vein and portal vein to evaluate for any signs of thrombosis. Normally distal esophageal varices develop from portal hypertension. Also recommend blood work to see if she has any pre-existing disease other than CLL ans splenic infarction as she is known to have that would lead to portal hypertension. - Causes of portal hypertension: Prehepatic: Portal vein obstruction (EHPVO) or massive splenomegaly with increased splenic vein blood flow Posthepatic: Severe right-sided heart failure, constrictive pericarditis, and hepatic vein obstruction (Budd-Chiari syndrome) Intrahepatic: Cirrhosis accounts for most cases of portal hypertension. Less frequent causes are schistosomiasis, massive fatty change, diseases affecting portal microcirculation as nodular regenerative hyperplasia and diffuse fibrosing granulomatous disease as sarcoidosis.[5] Other rare causes of portal hypertension include: Rico disease Alpha-1 antitrypsin deficiency Primary biliary cirrhosis Tuberculosis Constrictive pericarditis - Continue present medications. My findings are described in the full procedure note, which is enclosed. If I can be of further assistance, please feel free to contact me at . Sincerely, Henrique Aleman, 06/20/2022 4:49:24 PM This report has been signed electronically.
--- NOTE | 2022-06-20 17:18 | PN.HOSP_ITS ---
Subjective Subjective Patient was seen and examined today, I talked with her and her daughters were in the room at the time my examination. Daughters were concerned because the patient has right upper back pain-she appears tender over her right scapular region, I think this is just musculoskeletal in nature, her daughter is also stated that she appeared confused at times over the last 24 hours-patient appears alert but fatigued today. I had a talk with her about going to a shelter facility for short-term rehab and she is consented to go. I will give her 1 more dose of Venofer tomorrow due to her iron deficiency anemia. I talked with gastroenterology today concerning the patient's anemia, he performed an EGD on her today which showed 2 bleeding angiodysplastic lesions in the stomach. Patient will remain on Protonix. Objective Data Objective Data Vital Signs: Vital Signs Temp Pulse Resp BP Pulse Ox O2 Del Method O2 Flow Rate 97.7 F L 60 18 131/99 H 94 Room Air 2 06/20/22 16:35 06/20/22 16:55 06/20/22 16:55 06/20/22 16:55 06/20/22 16:55 06/20/22 16:55 06/20/22 16:40 Oxygen Flow Rate (L/min) 2 Oxygen Delivery Method Room Air Weight: 84 kg Body Mass Index (BMI) 28.2 Intake & Output: Intake and Output for Last 24 Hours 06/18/22 06/19/22 06/20/22 23:59 23:59 23:59 Intake Total 2937.50 / 2937.50 2558.75 / 2558.75 773.75 / 773.75 Output Total 350 / 550 1200 / 1200 Balance 2587.50 / 2387.50 1358.75 / 1358.75 773.75 / 773.75 Lab / Micro Data Result Diagrams: 06/20/22 05:26 06/20/22 05:26 Labs: Laboratory Results - last 24 hr 06/19/22 05:33: Iron 30 L, TIBC 256, Iron Saturation 11.7 L 06/20/22 05:26: WBC 15.6 H, RBC 2.18 L, Hgb 7.6 L, Hct 24.9 L, MCV 114.2 H, MCH 34.9 H, MCHC 30.5 L, RDW Std Deviation 65.8 H, RDW Coeff of Jose 15.9 H, Plt Count 68 L, MPV 11.1, Immature Gran % (Auto) 0.300, Neut % (Auto) 17.1 L, Lymph % (Auto) 80.1 H, [place] % (Auto) 1.3, Eos % (Auto) 1.1, Baso % (Auto) 0.1, Absolute Neuts (auto) 2.7, Absolute Lymphs (auto) 12.49 H, Nucleated RBC % 0.1, Platelet Estimate MOD DEC, Anisocytosis 2+, Macrocytosis 2+ 06/20/22 05:26: Sodium 141, Potassium 4.2, Chloride 116 H, Carbon Dioxide 20.0 L , Anion Gap 5, BUN 45 H, Creatinine 1.89 H, Estim Creat Clear Calc 22.59, Est GFR (MDRD) Af Amer 33 L, Est GFR (MDRD) Non-Af 27 L, BUN/Creatinine Ratio 23.8 H , Glucose 104, Calcium 8.3 L 06/20/22 05:26: Ferritin 185 Micro: Microbiology 06/18/22 12:40 Blood Culture (Wb) - Left Wrist Blood Culture - Preliminary No growth in 48 hours. 06/17/22 10:20 Blood Culture (Wb) - Right Hand Blood Culture - Final Enterococcus faecalis 06/14/22 18:15 Blood Culture (Wb) - Anticubital Left Bacteria Detection (PCR) - Final Enterococcus faecalis 06/14/22 18:15 Blood Culture (Wb) - Anticubital Left Blood Culture - Final Enterococcus faecalis 06/17/22 17:45 Stool Stool Occult Blood (CHERIE) - Final Occult Blood Positive 06/14/22 18:15 Urine, Catheterized Urine Culture - Final Enterococcus faecalis 06/14/22 18:45 Blood Culture (Wb) - Anticubital Left Blood Culture - Final GPC Poss Enterococcus sp 06/14/22 18:15 Nasal Secretion SARS-CoV-2 & FLU Antigen (Rapid) - Final Radiography Diagnostic Testing: Radiology Impression Abdomen CT 06/19/22 13:07 IMPRESSION: 1. Pleural effusions. 2. Trace ascites. 3. Renal hypodensities not characterized without contrast. Follow-up is not indicated per ACR guidelines. 4. Additional chronic findings noted above. Electronically Signed: Jenni Moore MD at 17:24 EDT , Rhythm Strip Rhythm Strip: A-fib Rate: 80 Ectopy: None Physical Exam Narrative alert, oriented x3 and no apparent distress General Appearance: cooperative, well kempt and well developed Orientation / Consciousness: awake, oriented to person, oriented to place and oriented to time HEENT normocephalic, head/scalp atraumatic and moist oral mucous membranes Eyes PERRL, EOMs intact bilaterally and conjunctivae normal Neck supple, no JVD, thyroid normal and no carotid bruits General: trachea midline Resp normal respiratory effort, no retractions, no use of accessory muscles and clear to auscultation bilaterally Auscultation: Negative for rales, rhonchi or wheezes Cardio regular rate, regular rhythm, S1 normal heart sound, S2 normal heart sound, no murmurs, no rub and no gallops GI normal to inspection, nondistended, normoactive bowel sounds, soft to palpation, non-tender and non-distended Extremity no clubbing, cyanosis or edema Skin no rashes or lesions noted General Skin Exam: no breakdown Neuro oriented x3, CN's II-XII intact bilaterally, moves all extremities, no focal motor deficits and no sensory deficits noted Sensorium / Orientation: awake, alert, oriented to person, oriented to place and oriented to time Speech: speech normal Psych affect normal Assessment & Plan Assessment/Plan (1) Enterococcal bacteremia: PLAN: Plan 1.? Enterococcal bacteremia-continue antibiotic coverage per infectious diseases #2 acute cystitis with Enterococcus-continue antibiotic coverage per infectious diseases #3 acute kidney injury superimposed on chronic kidney disease stage IV-continue to monitor kidney function, continue IV fluids at this time #4 chronic anemia-iron deficiency in nature, in part secondary to upper GI bleeding from angiodysplasia of the stomach-patient will remain on Protonix, I will give the patient IV iron tomorrow #5 generalized debility-patient is going to an extended care facility for short- term rehab services, continue PT and OT #6 essential hypertension-continue present medications Charges/Coding Visit Charges Inpatient E&M: 98624 Subs Hosp L2
[2022-06-20] MEDS: Mirtazapine 15 MG Tablet PO (21:21)
[2022-06-20] MEDS: AMOXICILLIN 500 MG CAPSULE PO (21:21)
[2022-06-20] MEDS: Pantoprazole Sodium 40 MG Tablet PO (21:21)
[2022-06-21] MEDS: Menthol/Lanolin/Calamine/Znox 113 GM Tube 1 APPLIC TOPICAL ×2 (05:27→12:57)
[2022-06-21 05:28] VITALS: BP 136/74; PULSE 60; RESP 16; TEMP 36.7; O2SAT 95
[2022-06-21] MEDS: 0.9% Normal Saline 1,000 ML 75 ML IV (06:53)
[2022-06-21 07:28] LABS: Absolute Lymphocyte Count 13.61 X10^3/uL (0.83-4.51); Basophil# 0.03 X10^3/uL; Basophil% 0.2 % (0-1); Eosinophil# 0.18 X10^3/uL; Eosinophils% 1.1 % (0-5); Hematocrit 26.8 % (37-47); Hemoglobin 8.3 g/dL (12.0-15.0); Lymphocyte # 13.61 X10^3/ul (0.83-4.51); Lymphocyte % 84.2 % (19-41); Mean Corpuscular Hgb 36.2 pg (27.0-32.0); Mean Platelet Vol. 11.2 fl (6.2-12.0); Monocyte# 0.26 X10^3/uL; Monocyte% 1.6 % (0-10); NRBC Flagged by Analyzer 0.2 % (0-5); Neutrophil # 2.04 X10^3/uL (2.7-7.7); Neutrophil % 12.7 % (47-70); POSITIVE COUNT YES; POSITIVE DIFFERENTIAL YES; POSITIVE MORPHOLOGY YES; Platelet Count 68 K/mm3 (150-450); RBC Distribution Width CV 16.6 % (11.6-14.6); Red Blood Count 2.29 M/mm3 (4.2-5.4); White Blood Count 16.2 K/mm3 (4.4-11.0)
[2022-06-21 08:17] VITALS: O2SAT 99
[2022-06-21 08:23] LABS: Differential Indicated SCAN CRITERIA MET
[2022-06-21] MEDS: Lidocaine 5% Patch 2 PATCH TOPICAL (08:26)
[2022-06-21] MEDS: Atenolol 50 MG Tablet PO (08:30)
[2022-06-21 08:31] LABS: Differential Comment SCANNED
[2022-06-21] MEDS: Orphenadrine 100 MG Tablet PO (08:31)
[2022-06-21] MEDS: Calcitriol 0.25 MCG Capsule PO (08:31)
[2022-06-21] MEDS: Pantoprazole Sodium 40 MG Tablet PO (08:31)
[2022-06-21] MEDS: Magnesium Chloride 64 MG Delay Rel.Tablet PO (08:31)
[2022-06-21 08:32] LABS: Crenated RBC 2+; Schistocytes RARE
[2022-06-21] MEDS: Allopurinol 100 MG Tablet PO (08:32)
[2022-06-21] MEDS: Multivitamins,Therapeutic Tablet 1 TABLET PO (08:32)
[2022-06-21] MEDS: Nystatin Powder 15gm Bottle 1 APPLIC TOPICAL (08:33)
[2022-06-21 09:00] VITALS: BP 148/92; PULSE 60; RESP 16; TEMP 36.4; O2SAT 99
--- NOTE | 2022-06-21 12:02 | CASEMGMT ---
Addendum entered by Julieta Dorantes 06/21/22 14:02: Discharge/Transfer order in. SW faxed orders to TCU, placed copies on pt chart and in envelope. SW notified Barbara pt will be transferred this afternoon. Barbara understanding. [facility] Original Note: Social Work SW in to inform pt of approval and acceptance for TCU. Pt voiced understanding. Pt's daughters were both also in the room and voiced understanding. Pt declined this SW call anyone else to update on transfer. PLAN: TCU, skilled. [facility]
--- NOTE | 2022-06-21 13:01 | TREXTCAR_ITS ---
Diet Diet Order/Speech Therapy: 06/20/22 17:59 Diet: Cardiac - Heart Healthy Is pt able to select menu?: Yes Routine Orders/Code Status Routine Lab Work: CBC (in 5 days) and BMP (in 5 days) Code Status: Full Code Therapies Weight Bearing: Full weight bearing Physical Therapy: Eval and Treat Occupational Therapy: Eval and Treat Problem/Diagnosis (1) Enterococcal bacteremia: Status: Acute Code(s): R78.81 - Bacteremia; B95.2 - Enterococcus as the cause of diseases classified elsewhere (2) Osteoarth NOS-up/arm: Status: Acute Code(s): M19.029 - Primary osteoarthritis, unspecified elbow Plan 1.? Enterococcal bacteremia-continue antibiotic coverage per infectious diseases #2 acute cystitis with Enterococcus-oral ampicillin x2 weeks #3 acute kidney injury superimposed on chronic kidney disease stage IV #4 chronic anemia-iron deficiency in nature, in part secondary to upper GI bleeding from angiodysplasia of the stomach-patient will remain on Protonix, I will give the patient IV iron tomorrow #5 generalized debility-patient is going to an extended care facility for short- term rehab services, continue PT and OT #6 essential hypertension-continue present medications #7 angiodysplasia of the stomach #8 Minor esophageal varices #9 paroxysmal atrial fibrillation-patient is not on Eliquis at this time due to concerns regarding upper GI bleed, recommend restarting Eliquis in 2 weeks Allergies/Procedures Done in Hospital Allergies losartan Adverse Reaction (Severe, Verified 06/14/22 17:05) Severe nausea, GI upset, anorexia erythromycin base [Erythromycin Base] Adverse Reaction (Intermediate, Verified 06/14/22 17:05) Unknown Penicillins Adverse Reaction (Mild, Verified 06/17/22 11:18) Rash no issues with amoxicillin Procedures: 2-D Echocardiogram (Transesophageal echocardiogram, transthoracic echocardiogram) and EGD Type of Care/Length of Stay Estimated LOS: Convalescent Care Less Than 30 days Type of Care Needed: Skilled Rehab Potential: Good Prognosis: Good Additional Orders/Day of Discharge H&P will serve as current which was dated: 06/14/22 Day of Discharge: 06/21/22 Dietary and Speech Recommendations Dietitian Recommendations/Changes: ADAT to Renal-General and Cardiac diet when medically able. Continue Ensure Compact supplements Discharge Plan Admission Admit Date/Time: 06/17/22 09:51 Primary Reason for Your Visit: Enterococcal bacteremia Attending Provider: Pedro Galicia Primary Care Provider: Israel Bucio Consulting Providers: Johnny Romeo ; Lizbeth Gamboa ; Ulisses Frarell ; Gerhard Butterfield Instructions Additional Instructions / Restrictions: Resume Eliquis at 2.5 mg twice daily in 2 weeks Discharge Orders/Prescriptions Prescriptions: New amoxicillin 500 mg capsule 500 mg PO Q12H Qty: 20 0RF allopurinol 100 mg Tablet 100 mg PO DAILYCM Qty: 0 0RF lidocaine 5 % Adhesive Patch,Medicated 2 patch topical DAILY Qty: 0 0RF Protocol: *Topical Application Instructions APPLICATION INSTRUCTIONS: apply to affected areas of her upper back Rx Instructions: use for one week, then discontinue Ensure Compact Liquid 118 ml PO 4X/DAY Qty: 0 0RF menthol-zinc oxide [Calmoseptine] 0.44-20.6 % Ointment 1 applic topical TID Qty: 0 0RF Protocol: *Topical Application Instructions APPLICATION INSTRUCTIONS: To affected areas. mirtazapine 15 mg Tablet 15 mg PO QHS Qty: 0 0RF nystatin [Nyamyc] 100,000 unit/gram Powder 1 applic topical BID Qty: 0 0RF Protocol: *Topical Application Instructions APPLICATION INSTRUCTIONS: To affected areas sennosides-docusate sodium [Stool Softener-Stimulant Laxat] 8.6-50 mg Tablet 2 tab PO BID PRN PRN (Reason: Constipation) Qty: 0 0RF pantoprazole 40 mg Tablet,Delayed Release (Dr/Ec) 40 mg PO BID Qty: 1 0RF hydrocodone-acetaminophen 5-325 mg tablet 1 tab PO Q6H PRN (Reason: pain) 7 Days Qty: 10 0RF Continued calcitriol 0.25 mcg capsule 0.25 mcg PO .COMPLEX Rx Instructions: 0.25 mcg PO Friday, Friday and Friday; magnesium oxide 250 mg magnesium tablet 250 mg PO DAILY hydroxyzine HCl 25 mg tablet 25 mg PO QHS PRN (Reason: Anxiety) cholecalciferol (vitamin D3) 50 mcg (2,000 unit) tablet 1,000 unit PO DAILY multivitamin with folic acid 1 TABLET tablet 1 tab PO DAILY allopurinol 100 MG tablet 100 mg PO DAILYCM acetaminophen 325 MG tablet 650 mg PO Q6H PRN PRN (Reason: Pain Score 1-10/Temp > 100.7 F) 0RF Discontinued atenolol 50 mg tablet 50 mg PO DAILY metolazone 5 mg tablet 2.5 mg PO .COMPLEX PRN (Reason: PRN) Rx Instructions: 2.5 mg PO PRN; coenzyme Q10 100 mg tablet 100 mg PO DAILY furosemide 80 mg tablet 80 mg PO BID Eliquis 5 mg tablet 5 mg PO BID Qty: 180 4RF potassium chloride 20 mEq tablet,ER particles/crystals 60 meq PO BID Referrals / Follow Up: Israel Bucio DO [Primary Care Provider] - Disposition Disposition (needs filled in before D/C Order can be placed): [facility]
[2022-06-21 13:23] VITALS: BP 177/77; PULSE 62; RESP 17; TEMP 36.5; O2SAT 98
--- NOTE | 2022-06-21 13:29 | PCM.DC.SUM ---
Providers Date of Admission: 06/17/22 Date of Discharge: 06/21/22 Primary Care Physician: Dr. Israel Bucio, Consultations 06/17/22 09: Consult: Gastroenterology Routine Consulting Provider: Em Gastroenter[facility] Reason for Consult: Persistent nausea EMERGENT Consult: No Notified: Yes Date Notified: 06/17/22 Time Notified: : Method of Notification: Verbal Consult: Infectious Disease Routine Consulting Provider: Ulisses Farrell Reason for Consult: Enterococcal UTI with bacteremia EMERGENT Consult: No Notified: Yes Date Notified: 06/17/22 Time Notified: Method of Notification: face to face Reason For Visit: ACUTE FEBRILE ILLNESS Diagnosis Discharge Diagnosis (1) Enterococcal bacteremia: Status: Acute Code(s): R78.81 - Bacteremia; B95.2 - Enterococcus as the cause of diseases classified elsewhere (2) Osteoarth NOS-up/arm: Status: Acute Code(s): M19.029 - Primary osteoarthritis, unspecified elbow Plan 1.? Enterococcal bacteremia-continue antibiotic coverage per infectious diseases #2 acute cystitis with Enterococcus-oral ampicillin x2 weeks #3 acute kidney injury superimposed on chronic kidney disease stage IV #4 chronic anemia-iron deficiency in nature, in part secondary to upper GI bleeding from angiodysplasia of the stomach-patient will remain on Protonix, I will give the patient IV iron tomorrow #5 generalized debility-patient is going to an extended care facility for short-term rehab services, continue PT and OT #6 essential hypertension-continue present medications #7 angiodysplasia of the stomach #8 Minor esophageal varices #9 paroxysmal atrial fibrillation-patient is not on Eliquis at this time due to concerns regarding upper GI bleed, recommend restarting Eliquis in 2 weeks #10 metabolic encephalopathy secondary to enterococcal bacteremia Acute sepsis was not present Medications at Discharge Home Medications multivitamin with folic acid 400 mcg tablet 1 tab PO DAILY supplement 07/18/14 allopurinol 100 mg tablet 100 mg PO DAILYCM gout 01/20/17 acetaminophen 325 mg tablet 650 mg PO Q6H PRN PRN Pain Score 1-10/Temp > 100.7 F 07/19/20 calcitriol 0.25 mcg capsule 0.25 mcg PO MOWEFR supplement 12/04/20 hydroxyzine HCl 25 mg tablet 25 mg PO QHS PRN Anxiety 02/18/22 magnesium oxide 250 mg PO DAILY supplement 02/18/22 cholecalciferol (vitamin D3) 50 mcg (2,000 unit) tablet 1,000 unit PO DAILY supplement 03/11/22 amoxicillin 500 mg capsule 500 mg PO Q12H cystitis 06/21/22 food supplemt, lactose-reduced (Ensure Compact oral liquid) 118 ml PO 4X/DAY nutritional supplement 06/21/22 hydrocodone-acetaminophen 5-325mg 5mg-325mg 1 tab PO Q6H PRN Pain (Scale Score 6-10) 06/21/22 lidocaine 5 % topical patch 2 patch topical DAILY pain 06/21/22 menthol 0.44 %-zinc oxide 20.6 % topical ointment (Calmoseptine) 1 applic topical TID buttocks 06/21/22 mirtazapine 15 mg tablet 15 mg PO QHS sleep 06/21/22 nystatin 100,000 unit/gram topical powder (Nyamyc) 1 applic topical BID skin 06/21/22 pantoprazole 40 mg tablet,delayed release 40 mg PO BID reflux 06/21/22 sennosides 8.6 mg-docusate sodium 50 mg tablet (Stool Softener-Stimulant Laxative) 2 tab PO BID PRN PRN Constipation #0 tabs 06/21/22 Hospital Course Operations None Procedures 2-D Echocardiogram and Transesophageal Echo Summary of Care Provided Minutes Spent on Discharge: 31 Hospital Course: This 77-year-old white female was seen in the emergency room [facility]) brought in by family due to confusion, she also complained of pain in her shoulder blades in her upper back. She was evaluated and found to be febrile with a temperature of 102. CT of the head showed no acute process, chest x-ray shows no acute pulmonary disease, patient's labs revealed a hemoglobin of 8.5, white blood cell count was normal, lactic acid was elevated at 2.7, creatinine was 3.03, COVID and influenza tests were negative. Patient was admitted to the hospitalist service due to her confusion and weakness, patient was placed on IV fluids, her blood cultures returned positive for gram-positive bacteria, 2D echo was ordered which was unremarkable, patient was placed on IV vancomycin and seen in consultation by infectious diseases. Urine culture resulted positive for Enterococcus, blood culture was positive also for Enterococcus. Patient had further blood cultures which were also positive and a transesophageal echo was ordered and completed-this was negative for any sign of endocarditis. Patient improved during her hospitalization but she remained weak, PT and OT saw the patient, it was recommended that the patient go to a senior living facility for short-term rehab services and she agreed. Patient underwent endoscopy due to her anemia-labs revealed that she had an iron deficiency anemia, an EGD was performed which showed 2 bleeding angiodysplasia lesions. Patient did not require blood transfusion during her hospitalization, she was given IV iron. On 06/21/2022, patient was seen and examined: On examination she appeared in good health and spirits, she does not appear to be in any distress. Vital signs as documented. Skin warm and dry and without overt rashes. Neck without JVD, thyroid appears normal, trachea is midline, neck is supple. Lungs clear, normal air movement was noted. Heart exam notable for regular rhythm, normal sounds and absence of murmurs, rubs or gallops. Abdomen unremarkable and without evidence of organomegaly, masses, or abdominal aortic enlargement, bowel sounds are present in all 4 quadrants, no abdominal tenderness was noted. Extremities nonedematous, no cyanosis was noted, no clubbing was noted. Neuro: Cranial nerves II through XII are grossly intact, no focal motor deficits were noted, sensation to light touch and pinprick is intact, motor exam 5/5 throughout. Psych: Patient is alert and oriented x3, she does not appear anxious or depressed, she does not appear agitated. Patient was discharged to TCU in stable condition on 06/21/2022 Weight / BMI Weight Weight: 84.1 kg Body Mass Index (BMI) 28.2 ABG / Lab / Microbiology Data Result Diagrams: 06/21/22 06:25 06/20/22 05:26 Laboratory: Laboratory Results - last 24 hr 06/21/22 06:25: WBC 16.2 H, RBC 2.29 L, Hgb 8.3 L, Hct 26.8 L, MCV 117.0 H, MCH 36.2 H, MCHC 31.0 L, RDW Std Deviation 68.0 H, RDW Coeff of Jose 16.6 H, Plt Count 68 L, MPV 11.2, Immature Gran % (Auto) 0.200, Neut % (Auto) 12.7 L, Lymph % (Auto) 84.2 H, Dewitt % (Auto) 1.6, Eos % (Auto) 1.1, Baso % (Auto) 0.2, Absolute Neuts (auto) 2.0, Absolute Lymphs (auto) 13.61 H, Nucleated RBC % 0.2, Differential Comment SCANNED, Diff Path Review May foll, Crenated Cell 2+, Schistocytes RARE Microbiology: Microbiology 06/21/22 11:45 Nasal Secretion SARS-CoV-2 Antigen (Rapid) - Final 06/19/22 13:15 Blood Culture (Wb) - Left Wrist Blood Culture - Preliminary No growth in 48 hours. 06/18/22 12:40 Blood Culture (Wb) - Left Wrist Blood Culture - Preliminary No growth in 48 hours. 06/17/22 10:20 Blood Culture (Wb) - Right Hand Blood Culture - Final Enterococcus faecalis 06/14/22 18:15 Blood Culture (Wb) - Anticubital Left Bacteria Detection (PCR) - Final Enterococcus faecalis 06/14/22 18:15 Blood Culture (Wb) - Anticubital Left Blood Culture - Final Enterococcus faecalis 06/17/22 17:45 Stool Stool Occult Blood (CHERIE) - Final Occult Blood Positive 06/14/22 18:15 Urine, Catheterized Urine Culture - Final Enterococcus faecalis 06/14/22 18:45 Blood Culture (Wb) - Anticubital Left Blood Culture - Final GPC Poss Enterococcus sp 06/14/22 18:15 Nasal Secretion SARS-CoV-2 & FLU Antigen (Rapid) - Final Meaningful Use Info Meaningful Use Diagnoses (Choose all that apply): None applicable Discharge Plan Admission Admit Date/Time: 06/17/22 09:51 Primary Reason for Your Visit: Enterococcal bacteremia Attending Provider: Pedro Galicia Primary Care Provider: Israel Bucio Consulting Providers: Johnny Romeo ; Lizbeth Gamboa ; Ulisses Farrell ; Gerhard Butterfield Instructions Additional Instructions / Restrictions: Resume Eliquis at 2.5 mg twice daily in 2 weeks Discharge Orders/Prescriptions Prescriptions: New sennosides-docusate sodium [Stool Softener-Stimulant Laxat] 8.6-50 mg Tablet 2 tab PO BID PRN PRN (Reason: Constipation) Qty: 0 0RF Continued calcitriol 0.25 mcg capsule 0.25 mcg PO MOWEFR Rx Instructions: 0.25 mcg PO Friday, Friday and Friday; magnesium oxide 250 mg magnesium tablet 250 mg PO DAILY hydroxyzine HCl 25 mg tablet 25 mg PO QHS PRN (Reason: Anxiety) cholecalciferol (vitamin D3) 50 mcg (2,000 unit) tablet 1,000 unit PO DAILY multivitamin with folic acid 1 TABLET tablet 1 tab PO DAILY allopurinol 100 MG tablet 100 mg PO DAILYCM acetaminophen 325 MG tablet 650 mg PO Q6H PRN PRN (Reason: Pain Score 1-10/Temp > 100.7 F) 0RF Discontinued atenolol 50 mg tablet 50 mg PO DAILY metolazone 5 mg tablet 2.5 mg PO .COMPLEX PRN (Reason: PRN) Rx Instructions: 2.5 mg PO PRN; coenzyme Q10 100 mg tablet 100 mg PO DAILY furosemide 80 mg tablet 80 mg PO BID Eliquis 5 mg tablet 5 mg PO BID Qty: 180 4RF potassium chloride 20 mEq tablet,ER particles/crystals 60 meq PO BID No Action amoxicillin 500 mg capsule 500 mg PO Q12H hydrocodone-acetaminophen 5-325 mg tablet 1 tab PO Q6H PRN (Reason: Pain (Scale Score 6-10)) pantoprazole 40 mg tablet,delayed release (DR/EC) 40 mg PO BID lidocaine 5 % adhesive patch,medicated 2 patch topical DAILY Protocol: *Topical Application Instructions APPLICATION INSTRUCTIONS: apply to affected areas of her upper back Rx Instructions: use for one week, then discontinue mirtazapine 15 mg tablet 15 mg PO QHS nystatin [Nyamyc] 100,000 unit/gram powder 1 applic topical BID Protocol: *Topical Application Instructions APPLICATION INSTRUCTIONS: To affected areas Ensure Compact Liquid 118 ml PO 4X/DAY menthol-zinc oxide [Calmoseptine] 0.44-20.6 % ointment 1 applic topical TID Protocol: *Topical Application Instructions APPLICATION INSTRUCTIONS: To affected areas. Referrals / Follow Up: Israel Bucio DO [Primary Care Provider] - Disposition Disposition (needs filled in before D/C Order can be placed): [facility] Charges/Coding Visit Charges Inpatient E&M: 31709 Disch Hosp
--- NOTE | 2022-06-21 14:00 | PCM.PN.ID ---
Physical Exam Narrative Feeling better, no fever Const alert and no apparent distress Resp normal air movement and clear to auscultation bilaterally Cardio regular rate and regular rhythm GI soft to palpation, non-tender and non-distended Skin no rashes or lesions noted ID ID: Route of nutrition/ use of supplements: [] Nutritional Intake: [] IV Site: [] Nogueira Catheter: [] Assessment & Plan Assessment/Plan (1) Encephalopathy acute: (2) OJ (acute kidney injury): (3) Enterococcal bacteremia: PLAN: OJ improved. Unclear source of bacteremia. Repeat bcx (+) from 06/17. Fever and encephalopathy improved. TTE showed no veg. JULES 06/18 with no valve or device involvement per Dr. King. Pt reports rash with PCN as a child, no issues with amoxicillin as an adult. Cont ampicillin while inpatient. Repeat bcx 06/18 and 06/[address] abd/pelvis neg for source of infection. At this point, ok for home with 2 weeks po amox 500mg bid. Will follow, d/w primary team (4) Presence of permanent cardiac pacemaker:
--- NOTE | 2022-06-21 15:01 | NURSING ---
REPORT CALLED TO ONIEL IN TCU, PT WILL GO TO ROOM 20
--- NOTE | 2022-06-21 15:40 | NURSING ---
Addendum entered by Sandie August 06/21/22 15:41: WILL LEAVE IV ACCESS IN D/T PT IS VERY HARD STICK Original Note: REPORT CALLED TO ONIEL IN TCU, PT WILL GO TO TCU 11
[2022-06-24 15:25] LABS: Pathologist Review Reviewed
== END 2022-06-21 17:00 | disposition skilled nursing facility (03) | DRG 689 ==
LOC: ED 21:26 → MS3 21:53
PROVIDERS: Internal Medicine; Internal Medicine Gastroenterology; Admitting Provider Hospitalist; Emergency Provider Emergency Medicine; PCP Family Medicine; Visit Provider Internal Medicine
PROC: 0DJ08ZZ Inspection of Upper Intestinal Tract, Via Natural or Artificial Opening Endoscopic (ICD-10-PCS; CPT 43235; principal; 2022-06-20 15:35)
DX: N30.00 Acute cystitis without hematuria (principal); G93.41 Metabolic encephalopathy; I85.01 Esophageal varices with bleeding; K31.811 Angiodysplasia of stomach and duodenum with bleeding; R78.81 Bacteremia; N17.9 Acute kidney failure, unspecified; I13.0 Hypertensive heart and chronic kidney disease with heart failure and stage 1 through stage 4 chronic kidney disease, or unspecified chronic kidney disease; I85.00 Esophageal varices without bleeding; I50.32 Chronic diastolic (congestive) heart failure; N18.4 Chronic kidney disease, stage 4 (severe); D62 Acute posthemorrhagic anemia; I48.0 Paroxysmal atrial fibrillation; M62.830 Muscle spasm of back; M10.9 Gout, unspecified; K44.9 Diaphragmatic hernia without obstruction or gangrene; M19.029 Primary osteoarthritis, unspecified elbow; K22.2 Esophageal obstruction; B95.2 Enterococcus as the cause of diseases classified elsewhere; Z20.822 Contact with and (suspected) exposure to COVID-19; Z79.01 Long term (current) use of anticoagulants; Z95.0 Presence of cardiac pacemaker; Z79.899 Other long term (current) drug therapy; Z86.16 Personal history of COVID-19
CPT/HCPCS: 36415; 70450; 71045; 74176; 80048; 80053; 80202; 81001; 82140; 82274; 82550; 82728; 83540; 83550; 83605; 83735; 84443; 84484; 85025; 85610; 85730; 87040; 87077; 87086; 87088; 87149; 87186; 87426; 87428; 87635; 88305; 88313; 93005; 93306; 93312; 93320; 93325; 97110; 97116; 97162; 97166; 97530; 97535; 97802; 99285; J7030; J7040; J7050; Q9957; A4216; C8929; J0696; J2405; J2916; U0003; U0005

== ENCOUNTER 2022-06-21 17:12 | Inpatient (IN) | payer MEDICARE, OTHER, SELFPAY ==
[2022-06-21 17:32] VITALS: BP 155/95; PULSE 63; RESP 18; TEMP 36.2; O2SAT 99; BMI 31.9
[2022-06-21] MEDS: Menthol/Lanolin/Calamine/Znox 113 GM Tube 1 APPLIC TOPICAL (20:34)
[2022-06-21] MEDS: Mirtazapine 15 MG Tablet PO (20:34)
[2022-06-21] MEDS: Nystatin Powder 15gm Bottle 1 APPLIC TOPICAL (20:35)
[2022-06-21] MEDS: Pantoprazole Sodium 40 MG Tablet PO (20:35)
[2022-06-21] MEDS: Acetaminophen 325 MG Tablet 650 MG PO (20:36)
[2022-06-21] MEDS: AMOXICILLIN 500 MG CAPSULE PO (20:58)
--- NOTE | 2022-06-21 21:40 | HP.PCM_ITS ---
HPI - General General Date of Admission: 06/21/22 Date of Service: 06/21/22 Chief Complaint: Here for rehab. HPI Narrative 06/14/2022 ENRICO MEEKS, is a 77 Female who presents to [facility] Emergency Department with back pain. 06/14/2022 EKG accelerated junctional rhythm, septal inferior infarct, age undetermined, marked ST abnormality, possible lateral subendocardial injury. Confusion, right shoulder blade pain. Nausea, poor intake, Fever 102. CT head negative, Chest X-ray negative, acute kidney injury, Urinalysis negative, covid19 negative, influenza negative. [place], Norflex for muscle spasm. 06/14/2022 Admit to Hospital. Evaluation for fever. IV Fluids, hold diuretic for acute kidney injury. Norflex, Oxycodone for upper back pain, neck pain, headache. 06/15/2022 Fever 103, blood culture positive. Vancomycin IV, Infectious Disease consult for gram positive cocci bacteremia. 06/15/2022 Echo EF 55-60%. No vegetation. 06/16/2022 Enterococcus UTI/Bacteremia on Vancomycin IV. Creatinine 3.02. Tylenol,Lidoderm patch, Norflex twice daily for back pain. 06/17/2022 Vancomycin IV for Enterococcus UTI/Bacteremia. PT/OT for debility. 06/18/2022 Hold Eliquis, order Protonix, consult GI, for stool guaiac positive. 06/18/2022 Dr. Farrell recommended repeating blood culture, recommend JULES. 06/18/2022 JULES negatve vegetation. 06/19/2022 IV fluids for acute kidney injury. 06/20/2022 Dr. Aleman EGD showed moderate Schatzki ring dilated, moderate hiatal hernia, Red blood in stomach. 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 Amoxicillin PO for enterococcus UTI/Bacteremia. 06/20/2022 Patient refuses iron secondary to nausea for anemia. Venofer IV x 2 given. 06/21/2022 Admit to TCU with debility, here for rehabilitation, strengthening, prior to discharge home alone. [facility] Medical History (Updated 06/21/22 @ 21:[address] Ash Champion MD) Atrial fibrillation Chronic dizziness CLL (chronic lymphocytic leukemia) COVID-19 (10/13/20) Hypertension Kidney disease Lesion of pancreas Nausea Pacemaker Proteinuria Renal insufficiency Shingles Shingles (herpes zoster) polyneuropathy Sick sinus syndrome Home Medications multivitamin with folic acid 400 mcg tablet 1 tab PO DAILY supplement 07/18/14 [History Last Taken 06/30/20] allopurinol 100 mg tablet 100 mg PO DAILYCM gout 01/20/17 [History Last Taken 06/30/20] acetaminophen 325 mg tablet 650 mg PO Q6H PRN PRN Pain Score 1-10/Temp > 100.7 F 07/19/20 [Rx Last Taken Unknown] calcitriol 0.25 mcg capsule 0.25 mcg PO MOWEFR supplement 12/04/20 [History Last Taken Unknown] hydroxyzine HCl 25 mg tablet 25 mg PO QHS PRN Anxiety 02/18/22 [History Last Taken Unknown] magnesium oxide 250 mg PO DAILY supplement 02/18/22 [History Last Taken Unknown] cholecalciferol (vitamin D3) 50 mcg (2,000 unit) tablet 1,000 unit PO DAILY supplement 03/11/22 [History Last Taken Unknown] amoxicillin 500 mg capsule 500 mg PO Q12H cystitis 06/21/22 [History Last Taken Unknown] food supplemt, lactose-reduced (Ensure Compact oral liquid) 118 ml PO 4X/DAY nutritional supplement 06/21/22 [History Last Taken Unknown] hydrocodone-acetaminophen 5-325mg 5mg-325mg 1 tab PO Q6H PRN Pain (Scale Score 6-10) 06/21/22 [History Last Taken Unknown] lidocaine 5 % topical patch 2 patch topical DAILY pain 06/21/22 [History Last Taken Unknown] menthol 0.44 %-zinc oxide 20.6 % topical ointment (Calmoseptine) 1 applic topical TID buttocks 06/21/22 [History Last Taken Unknown] mirtazapine 15 mg tablet 15 mg PO QHS sleep 06/21/22 [History Last Taken Unknown] nystatin 100,000 unit/gram topical powder (Nyamyc) 1 applic topical BID skin 06/21/22 [History Last Taken Unknown] pantoprazole 40 mg tablet,delayed release 40 mg PO BID reflux 06/21/22 [History Last Taken Unknown] sennosides 8.6 mg-docusate sodium 50 mg tablet (Stool Softener-Stimulant Laxative) 2 tab PO BID PRN PRN Constipation #0 tabs 06/21/22 [Rx Last Taken Unknown] Allergy/AdvReac Type Severity Reaction Status Date / Time losartan AdvReac Severe Severe Verified 06/14/22 17:05 nausea, GI upset, anorexia erythromycin base AdvReac Intermediate Unknown Verified 06/14/22 17:05 [Erythromycin Base] Penicillins AdvReac Mild Rash Verified 06/17/22 11:18 Family History Mother Hypertension Heart disease Father Diabetes Myocardial infarction Surgical History History of cardioversion (03/02/19) History of cholecystectomy History of hysterectomy History of parathyroid surgery Presence of permanent cardiac pacemaker (~07/06/20) Social History (Updated 06/21/22 @ 21:[address] Ash Champion MD) household members: none Smoking Status: Never smoker alcohol intake: never substance use type: does not use caffeine: No ROS Constitutional Constitutional: Denies chills, fever(s) or weight gain ENT HEENT: Denies headache(s), nasal congestion or nasal discharge Cardiovascular Cardiovascular: Denies chest pain or palpitations Respiratory/Chest Respiratory/Chest: Denies cough, excessive phlegm production or shortness of breath with exertion Gastrointestinal Gastrointestinal: Denies abdominal pain, nausea or vomiting Genitourinary Genitourinary: Denies dysuria Musculoskeletal Musculoskeletal: Denies joint pain or joint swelling Integumentary Integumentary: Denies rash or wounds Neurologic Neurologic: Denies focal weakness, numbness or tingling Psychiatric Psychiatric: Denies anxiety, auditory hallucinations, depression, homicidal ideation or suicidal ideation Vital Signs Vital Signs Vital Signs: 06/21/22 17:32 Temperature 97.1 F L Temperature Source Temporal Pulse Rate 63 Respiratory Rate 18 Blood Pressure 155/95 H Blood Pressure Mean 115 Blood Pressure Source Monitor Blood Pressure Position Supine Blood Pressure Location Left Arm Pulse Ox 99 Oxygen Delivery Method Room Air Weight Weight: 92.533 kg Body Mass Index (BMI) 31.9 Physical Exam Const alert General Appearance: cooperative HEENT normocephalic Eyes PERRL and EOMs intact bilaterally Neck supple, no JVD and no carotid bruits Resp normal respiratory effort, normal air movement and clear to auscultation bilaterally Cardio regular rate and regular rhythm GI normal to inspection, nondistended, normoactive bowel sounds, non-tender and non-distended Extremity normal capillary refill General Extremity: Negative for edema Skin no rashes or lesions noted General Skin Exam: no breakdown Psych affect normal Appearance: appropriate Assessment & Plan Assessment/Plan (1) Debility: (2) Encephalopathy: (3) Bacteremia due to Enterococcus: (4) Enterococcus UTI: (5) Acute kidney injury: (6) Anemia: (7) Upper gastrointestinal bleeding: (8) Gout: (9) Hypertension: (10) Atrial fibrillation: (11) Chronic lymphocytic leukemia: (12) Chronic kidney disease, stage 4 (severe): (13) Hyperparathyroidism: PLAN: Plan 77 year old female with below past medical history hospitalized for encephalop athy secondary to Enterococcus urinary tract infection/bacteremia, complicated by acute on chronic kidney failure, upper gastrointestinal bleed, admitted to TCU with debility, here for rehabilitation, strengthening, prior to discharge home alone. * Debility - PT/OT. * Pain - Tylenol 650mg q6 prn pain (1-3), [place] 1 tablet Q6 prn pain (6-10), Lidoderm 2 patches topical daily. * Bowel - Senna/colace 2 tablets bid prn. * Adult immunization - Administer pneumonia vaccine, covid19 vaccine, flu vaccine as appropriate. * DVT prophylaxis - Not necessary, on Eliquis. * Gout - Allopuinol 100mg daily. * Enterococcus UTI/Bacteremia - Amoxicillin 500mg q12h thru 07/01/2022. * Atrial Fibrillation - Eliquis 2.5mg bid. * Hyperparathyroidism - Calcitriol 0.25mg MWF. * Nutrition - Ensure Compact 118ml 4x/day, MVI daily. * Anxiety - Hydroxyzine 25mg qhs prn. * Hypomagnesemia - Magnesium chloride 128mg daily. * Skin irritation - Calmoseptine topical bid. * Depression /insomnia/appetite loss - Mirtazapine 15mg qhs, stable chronic [facility] use, GDR not recommended. * Tinea Corporis - Nystatin powder topical bid. * GERD - Pantoprazole 40mg daily. * Vitamin D deficiency - Vitamin D3 25mcg daily.
[2022-06-21 23:00] VITALS: PULSE 63; RESP 16
[2022-06-22] MEDS: Senna/Docusate Sodium 1 Tablet 2 TABLET PO ×2 (05:08→18:24)
[2022-06-22] MEDS: Lidocaine 5% Patch 2 PATCH TOPICAL (05:08)
[2022-06-22] MEDS: Menthol/Lanolin/Calamine/Znox 113 GM Tube 1 APPLIC TOPICAL ×3 (05:09→21:12)
[2022-06-22] MEDS: Pantoprazole Sodium 40 MG Tablet PO ×2 (05:10→18:24)
[2022-06-22] MEDS: Magnesium Chloride 64 MG Delay Rel.Tablet 128 MG PO (05:10)
[2022-06-22] MEDS: Nystatin Powder 15gm Bottle 1 APPLIC TOPICAL ×2 (05:10→18:24)
[2022-06-22] MEDS: Cholecalciferol (VIT D3) 25 MCG TABLET (1,000 UNITS) PO (05:10)
[2022-06-22 08:20] LABS: Absolute Lymphocyte Count 12.55 X10^3/uL (0.83-4.51); Absolute Neutrophil Count 1.9 X10^3/uL (2.0-7.7); Basophil# 0.03 X10^3/uL; Basophil% 0.2 % (0-1); Eosinophil# 0.18 X10^3/uL; Eosinophils% 1.2 % (0-5); Hematocrit 27.5 % (37-47); Hemoglobin 8.5 g/dL (12.0-15.0); Lymphocyte # 12.55 X10^3/ul (0.83-4.51); Lymphocyte % 83.5 % (19-41); Mean Corp Hgb Conc 30.9 g/dL (32-36); Mean Corpuscular Hgb 34.4 pg (27.0-32.0); Mean Corpuscular Volume 111.3 fL (81-99); Mean Platelet Vol. 10.9 fl (6.2-12.0); Monocyte# 0.34 X10^3/uL; Monocyte% 2.3 % (0-10); NRBC Flagged by Analyzer 0.3 % (0-5); Neutrophil % 12.6 % (47-70); POSITIVE COUNT YES; POSITIVE DIFFERENTIAL YES; POSITIVE MORPHOLOGY YES; Platelet Count 75 K/mm3 (150-450); RBC Distribution Width CV 16.6 % (11.6-14.6); Red Blood Count 2.47 M/mm3 (4.2-5.4)
[2022-06-22 08:23] LABS: Differential Indicated SCAN CRITERIA MET
[2022-06-22] MEDS: AMOXICILLIN 500 MG CAPSULE PO ×2 (08:35→21:12)
[2022-06-22] MEDS: Allopurinol 100 MG Tablet PO (08:35)
[2022-06-22] MEDS: Multivitamins,Therapeutic Tablet 1 TABLET PO (08:35)
[2022-06-22 08:37] LABS: Anion Gap 4 (5-15); BUN 39 mg/dL (7-18); BUN/Creat Ratio 21.7 RATIO (10-20); Calcium,Total 9.4 mg/dL (8.5-10.1); Chloride 118 mmol/L (98-107); EST Glomerular Filtration Rate 29 mL/min (>60); Est Glom Filt Rate - Afr Amer 35 mL/min (>60); Estimated Creatinine Clearance 24.64 ml/min; Glucose 109 mg/dL (74-106); Potassium 4.3 mmol/L (3.5-5.1); Sodium Level 143 mmol/L (136-145)
[2022-06-22 08:49] LABS: Platelet Estimate MOD DEC (ADEQ); Smudge Cells RARE
--- NOTE | 2022-06-22 08:57 | NURSING ---
Notified Dr. Champion of pts LBM and only PRN scheduled. Received order to change senna/colace to scheduled 2 tablets BID, and order a soap suds enema. Orders repeated back, will add order.
[2022-06-22 10:00] VITALS: RESP 16
--- NOTE | 2022-06-22 11:26 | NURSING ---
Notified Dr. Champion of pt pitting edema. Received order for lasix 40mg daily.
[2022-06-22] MEDS: Tuberculin,Purif.prot.deriv. 50 TU/ML Vial 0.1 ML ID (11:40)
[2022-06-22] MEDS: Furosemide 40 MG Tablet PO (11:40)
[2022-06-22 16:00] VITALS: BP 137/75; PULSE 60; RESP 17; TEMP 36.7; O2SAT 98
--- NOTE | 2022-06-22 17:56 | NURSING ---
Daughter requesting salt for patients dinner. Explained that pt is on a cardiac diet and not allowed additional salt. Further educated that this will contribute to patients edema that family is concerned about. Daughter stated pt doesn't want to eat if she cannot have salt on her food. Offered Mrs Dash or pepper and apologized, reiterated need for low sodium diet.
--- NOTE | 2022-06-22 18:53 | NURSING ---
Family requesting Dr. Ash macias be scheduled kym per their request. They are concerned pt is not wanting to eat very much.
[2022-06-22] MEDS: Mirtazapine 15 MG Tablet PO (21:12)
[2022-06-23] MEDS: Menthol/Lanolin/Calamine/Znox 113 GM Tube 1 APPLIC TOPICAL ×3 (05:23→22:10)
[2022-06-23] MEDS: Senna/Docusate Sodium 1 Tablet 2 TABLET PO ×2 (05:25→17:23)
[2022-06-23] MEDS: Magnesium Chloride 64 MG Delay Rel.Tablet 128 MG PO (05:25)
[2022-06-23] MEDS: Pantoprazole Sodium 40 MG Tablet PO ×2 (05:26→17:23)
[2022-06-23] MEDS: Cholecalciferol (VIT D3) 25 MCG TABLET (1,000 UNITS) PO (05:26)
[2022-06-23] MEDS: Lidocaine 5% Patch 2 PATCH TOPICAL (05:26)
[2022-06-23] MEDS: Furosemide 40 MG Tablet PO (05:26)
[2022-06-23 05:39] VITALS: BP 187/85; PULSE 66; O2SAT 99
[2022-06-23] MEDS: AMOXICILLIN 500 MG CAPSULE PO ×2 (07:59→22:10)
[2022-06-23] MEDS: Nystatin Powder 15gm Bottle 1 APPLIC TOPICAL ×2 (07:59→17:26)
[2022-06-23] MEDS: Multivitamins,Therapeutic Tablet 1 TABLET PO (07:59)
[2022-06-23] MEDS: Allopurinol 100 MG Tablet PO (07:59)
[2022-06-23 14:51] VITALS: BP 105/66; PULSE 59; RESP 16; TEMP 36.8; O2SAT 96
[2022-06-23] MEDS: Mirtazapine 15 MG Tablet PO (22:09)
[2022-06-23 22:15] VITALS: O2SAT 97
--- NOTE | 2022-06-23 22:15 | NURSING ---
Removed ARSEN wrap to rt arm unraveled and removed per this nurse. Discussed avoiding added salt d/t edema. Pt notes she is not able to consume many foods without adding salt. Reiterated rationale behind avoiding salt to prevent fluid retention. Does not express interest in avoiding salt or implementing different forms of alternatives to salt. Instructed pt upon dc from TCU she will need to monitor weight daily in the mornings before eating or drinking and after voiding wearing the same clothes to ensure accuracy. Further education needed. Will continue to monitor.
[2022-06-24] MEDS: Lidocaine 5% Patch 2 PATCH TOPICAL (05:32)
[2022-06-24] MEDS: Magnesium Chloride 64 MG Delay Rel.Tablet 128 MG PO (05:35)
[2022-06-24] MEDS: Pantoprazole Sodium 40 MG Tablet PO ×2 (05:35→18:07)
[2022-06-24] MEDS: Senna/Docusate Sodium 1 Tablet 2 TABLET PO ×2 (05:35→18:07)
[2022-06-24] MEDS: Calcitriol 0.25 MCG Capsule PO (05:36)
[2022-06-24] MEDS: Nystatin Powder 15gm Bottle 1 APPLIC TOPICAL ×2 (05:36→18:08)
[2022-06-24] MEDS: Cholecalciferol (VIT D3) 25 MCG TABLET (1,000 UNITS) PO (05:36)
[2022-06-24] MEDS: Menthol/Lanolin/Calamine/Znox 113 GM Tube 1 APPLIC TOPICAL ×3 (05:37→21:08)
[2022-06-24] MEDS: Furosemide 40 MG Tablet PO (05:38)
[2022-06-24 05:44] VITALS: BP 143/75; PULSE 62
[2022-06-24] MEDS: Multivitamins,Therapeutic Tablet 1 TABLET PO (08:26)
[2022-06-24] MEDS: Allopurinol 100 MG Tablet PO (08:26)
[2022-06-24] MEDS: AMOXICILLIN 500 MG CAPSULE PO ×2 (08:26→21:07)
--- NOTE | 2022-06-24 14:02 | PCM.PN.DRR ---
TCU RX Drug Regimen Review Subjective: 77 YOF admitted to TCU post hospitalization at [facility]. Admitted to TCU for strengthening and rehabilitation prior to discharge home alone. Objective: Allergies losartan Adverse Reaction (Severe, Verified 06/14/22 17:05) Severe nausea, GI upset, anorexia erythromycin base [Erythromycin Base] Adverse Reaction (Intermediate, Verified 06/14/22 17:05) Unknown Penicillins Adverse Reaction (Mild, Verified 06/17/22 11:18) Rash no issues with amoxicillin Current Medications Generic Name Dose Route Start Last Admin Trade Name Freq PRN Reason Stop Dose Admin Acetaminophen 650 mg 06/21/22 22:07 Acetaminophen 325 Mg Tablet PO Q6H PRN PRN Pain Score 1-5 Hydrocodone Bitart/Acetaminophen 1 tablet 06/21/22 17:37 Hydrocodone Bitartrate/Apap 5/325 Tablet PO Q6H PRN PAIN 6-10 Allopurinol 100 mg 06/22/22 08:00 06/24/22 08:26 Allopurinol 100 Mg Tablet PO 100 mg DAILYCM BUNNY Administration Amoxicillin 500 mg 06/22/22 09:00 06/24/22 08:26 Amoxicillin 500 Mg Capsule PO 07/01/22 09:01 500 mg Q12H BUNNY Administration Apixaban 2.5 mg 07/05/22 18:00 Apixaban 2.5 Mg Tablet PO BID [facility] Calamine/Phenol 1 applic 06/21/22 22:00 06/24/22 05:37 Menthol/Lanolin/Calamine/Znox 113 Gm Tube TOPICAL 1 applic TID BUNNY Administration Protocol Calcitriol 0.25 mcg 06/24/22 06:00 06/24/22 05:36 Calcitriol 0.25 Mcg Capsule PO 0.25 mcg MOWEFR BUNNY Administration Cholecalciferol 25 mcg 06/22/22 06:00 06/24/22 05:36 Cholecalciferol (Vit D3) 25 Mcg Tablet (1,000 Units) PO 25 mcg DAILY BUNNY Administration Furosemide 40 mg 06/22/22 11:26 06/24/22 05:38 Furosemide 40 Mg Tablet PO 40 mg DAILY BUNNY Administration Hydroxyzine Pamoate 25 mg 06/21/22 17:37 Hydroxyzine Dilia 25 Mg Capsule PO QHS PRN ANXIETY Lidocaine 2 patch 06/22/22 06:00 06/24/22 05:32 Lidocaine 5% Patch TOPICAL 06/29/22 06:01 2 patch DAILY BUNNY Administration Protocol Magnesium Chloride 128 mg 06/22/22 06:00 06/24/22 05:35 Magnesium Chloride 64 Mg Delay Rel.Tablet PO 128 mg DAILY BUNNY Administration Mirtazapine 15 mg 06/21/22 22:00 06/23/22 22:09 Mirtazapine 15 Mg Tablet PO 15 mg QHS BUNNY Administration Multivitamins 1 tablet 06/22/22 08:00 06/24/22 08:26 Multivitamins,Therapeutic Tablet PO 1 tablet DAILYCM BUNNY Administration Nutritional Formula (Lactose Free) 118 ml 06/21/22 22:00 06/24/22 11:54 Ensure Compact 118 Ml Liquid PO 118 ml 4X/DAY BUNNY Administration Nystatin 1 applic 06/21/22 18:00 06/24/22 05:36 Nystatin Powder 15gm Bottle TOPICAL 1 applic BID BUNNY Administration Protocol Pantoprazole Sodium 40 mg 06/21/22 18:00 06/24/22 05:35 Pantoprazole Sodium 40 Mg Tablet PO 40 mg BID BUNNY Administration Senna/Docusate Sodium 2 tablet 06/22/22 18:00 06/24/22 05:35 Senna/Docusate Sodium 1 Tablet PO 2 tablet BID BUNNY Administration Sodium Chloride 10 - 40 ml 06/21/22 17:51 0.9% Saline Lock 10 Ml Syringe IV UD PRN SALINE FLUSH Tuberculin PPD 0.1 ml 06/29/22 10:00 Tuberculin,Purif.Prot.Deriv. 50 Tu/Ml Vial ID 06/29/22 10:01 X1 ONE Problem List (Last Reviewed 06/21/22 @ 21:[address] Ash Champino MD) Hyperparathyroidism (Acute) Chronic kidney disease, stage 4 (severe) (Chronic) Chronic lymphocytic leukemia (Chronic) Atrial fibrillation (Acute) Hypertension (Chronic) Gout (Acute) Upper gastrointestinal bleeding (Acute) Anemia (Acute) Acute kidney injury (Acute) Enterococcus UTI (Acute) Bacteremia due to Enterococcus (Acute) Encephalopathy (Acute) Debility (Acute) Vital Signs Temp Pulse Resp BP Pulse Ox O2 Del Method 98.3 F 62 16 143/75 H 97 Room Air 06/23/22 14:51 06/24/22 05:44 06/23/22 14:51 06/24/22 05:44 06/23/22 22:15 06/23/22 22:15 Oxygen Delivery Method Room Air Weight: 91.767 kg Body Mass Index (BMI) 31.9 Sodium 143 mmol/L (136-145) 06/22/22 07:52 Potassium 4.3 mmol/L (3.5-5.1) 06/22/22 07:52 Chloride 118 mmol/L (98-107) H 06/22/22 07:52 Carbon Dioxide 21.0 mmol/L (21.0-32.0) 06/22/22 07:52 Anion Gap 4 (5-15) L 06/22/22 07:52 BUN 39 mg/dL (7-18) H 06/22/22 07:52 Creatinine 1.80 mg/dL (0.55-1.02) H 06/22/22 07:52 Est GFR (MDRD) Af Amer 35 mL/min (>60) L 06/22/22 07:52 Est GFR (MDRD) Non-Af 29 mL/min (>60) L 06/22/22 07:52 BUN/Creatinine Ratio 21.7 RATIO (10-20) H 06/22/22 07:52 Glucose 109 mg/dL (74-106) H 06/22/22 07:52 Assessment/Plan: 1. Pain - Tylenol 650mg q6 prn pain (1-3), [place] 1 tablet Q6 prn pain (6-10), Lidoderm 2 patches topical daily. Resident has not received any tylenol or norco yet. The patient consistently rates pain 2/10.? Please continue to monitor for increased pain, PRN usage, constipation, respiratory depression, and rash. Last documented bowel movement 06/24/22 2. Bowel - Senna/colace 2 tablets bid. Please continue to monitor for constipation. Last documented bowel movement 06/24/22.? 3. Enterococcus UTI/Bacteremia - Amoxicillin 500mg q12h thru 07/01/2022. Please continue to monitor for infection, and rash. The resident has reported allergy to penicillins, but no issues documented at this time regarding allergic reactions.? 4.Gout - Allopurinol 100mg daily. Please continue to monitor for S/S of gout, and uric acid level (last 8.8 mg/dl)? 5. Atrial Fibrillation - Eliquis 2.5mg bid. Please continue to monitor for S/S of bleeding/bruising, H/H (last Hgb 8.5/ Hct 27.5 on 06/22). Dose appropriate based on patient age and SCr 6. Hyperparathyroidism - Calcitriol 0.25mg MWF. Please continue to monitor for S/S of hyperthyroidism, calcium (9.4 mg/dL), and phosphorus (3.6 mg/dL), thyroid function tests as clinically indicated. 7. Nutrition - MVI 1 PO daily. Please continue to monitor? 8. Hypomagnesemia - Magnesium chloride 128mg daily. Please continue to monitor magnesium level (2.5 mg/dL) 9. GERD - Pantoprazole 40mg BID. Please continue to monitor for S/S of GERD and diarrhea. May also encourage non-pharmacologic treatments to help minimize GERD flare-ups. 10. Vitamin D deficiency - Vitamin D3 25mcg daily. Please continue to monitor vitamin D level (57.7 last 03/28/22) 11. Pitting Edema: Furosemide 40mg PO daily. Please continue to monitor electrolytes, salt intake, and I/O. Assessment/Plan for indications treated with psychotropic medications: 12. Depression /insomnia/appetite loss - Mirtazapine 15mg qhs. Please continue to monitor eating and sleeping habits. Per nursing note, the patient has refused several meals and when does eat resident nibbles. GDR not appropriate. Please continue to monitor? 13. Anxiety - Hydroxyzine 25mg qhs prn. Please continue to monitor resident mental status, and PRN usage. No doses have been given yet. Medical chart and medication regimen reviewed. The following medication irregularities or issues were identified: No irregularities noted on chart review. Date of Note:: 06/24/22
[2022-06-24 15:07] VITALS: BP 136/64; PULSE 60; RESP 14; TEMP 37.2; O2SAT 95
--- NOTE | 2022-06-24 15:40 | NURSING ---
Updated pt and family on positive covid resident and employee.
--- NOTE | 2022-06-24 15:51 | CASEMGMT ---
Social Work Met with patient to complete initial assessment. Introduced self and role. Verified/updated contacts. Discussed code status and MOLST form. Pt confirmed full code. MOLST communicated to , placed on chart. Explained Medicare benefit. Encouraged to contact secondary insurance to ensure copay coverage. Pts goal is to return home alone, however, dtr does live in same [place] as pt. SW to continue to follow for DC planning. Eunice Briones, [employer]
--- NOTE | 2022-06-24 16:26 | NURSING ---
MADYSONM with Dr. Torres office to see when pt needs to follow up with Dr. Aleman.
--- NOTE | 2022-06-24 16:53 | NURSING ---
Updated Family and resident on positive covid resident and employee.
[2022-06-24] MEDS: Mirtazapine 15 MG Tablet PO (21:08)
[2022-06-25] MEDS: Menthol/Lanolin/Calamine/Znox 113 GM Tube 1 APPLIC TOPICAL ×3 (05:04→20:25)
[2022-06-25] MEDS: Magnesium Chloride 64 MG Delay Rel.Tablet 128 MG PO (05:05)
[2022-06-25] MEDS: Lidocaine 5% Patch 2 PATCH TOPICAL (05:05)
[2022-06-25] MEDS: Furosemide 40 MG Tablet PO ×2 (05:05→14:20)
[2022-06-25] MEDS: Pantoprazole Sodium 40 MG Tablet PO ×2 (05:06→18:21)
[2022-06-25] MEDS: Cholecalciferol (VIT D3) 25 MCG TABLET (1,000 UNITS) PO (05:06)
[2022-06-25] MEDS: Senna/Docusate Sodium 1 Tablet 2 TABLET PO (05:06)
[2022-06-25] MEDS: Nystatin Powder 15gm Bottle 1 APPLIC TOPICAL ×2 (05:06→20:25)
[2022-06-25 05:13] VITALS: BP 147/74; PULSE 61
[2022-06-25] MEDS: Multivitamins,Therapeutic Tablet 1 TABLET PO (08:26)
[2022-06-25] MEDS: Allopurinol 100 MG Tablet PO (08:26)
[2022-06-25] MEDS: AMOXICILLIN 500 MG CAPSULE PO ×2 (08:26→20:32)
--- NOTE | 2022-06-25 13:47 | NURSING ---
dr brooke updated d/t elevated BP and daughters concerns regarding medication changes in acute hospital. states pt edema and appetite are not improved. she is also off her eliquis which was for her AFIB. this was stopped d/t GI bleed. will restart on 07/05/22 per admit orders. new orders to increase lasix 40mg BID, restart atenolol 50mg give dose now, and make appt with dr saldaña. message left with dr miguel office, awaiting return call. daughter updated on all.
[2022-06-25 13:51] VITALS: BP 173/86; PULSE 70; RESP 18; TEMP 37.1; O2SAT 95
[2022-06-25] MEDS: Atenolol 50 MG Tablet PO (14:20)
--- NOTE | 2022-06-25 14:32 | NURSING ---
dr mata office returned call, they suggest that pt have consult order if there are concerns that cannot wait until a follow up in few months. will udpate dr brooke.
--- NOTE | 2022-06-25 14:53 | NURSING ---
pt to have appt with dr King on 06/27/22 @ [id number] per family request.
--- NOTE | 2022-06-25 15:31 | NURSING ---
family updated on positive covid staff member
[2022-06-25 18:59] VITALS: BP 116/65; PULSE 59
[2022-06-25] MEDS: Mirtazapine 15 MG Tablet PO (20:32)
[2022-06-25 20:36] VITALS: PULSE 63; RESP 16; O2SAT 99
[2022-06-26] MEDS: Magnesium Chloride 64 MG Delay Rel.Tablet 128 MG PO (05:28)
[2022-06-26] MEDS: Menthol/Lanolin/Calamine/Znox 113 GM Tube 1 APPLIC TOPICAL ×3 (05:28→20:45)
[2022-06-26] MEDS: Atenolol 50 MG Tablet PO (05:28)
[2022-06-26] MEDS: Pantoprazole Sodium 40 MG Tablet PO ×2 (05:28→17:39)
[2022-06-26] MEDS: Senna/Docusate Sodium 1 Tablet 2 TABLET PO ×2 (05:28→17:39)
[2022-06-26] MEDS: Cholecalciferol (VIT D3) 25 MCG TABLET (1,000 UNITS) PO (05:28)
[2022-06-26] MEDS: Nystatin Powder 15gm Bottle 1 APPLIC TOPICAL ×2 (05:29→17:44)
[2022-06-26] MEDS: Calcitriol 0.25 MCG Capsule PO (05:29)
[2022-06-26] MEDS: Furosemide 40 MG Tablet PO ×2 (05:29→13:54)
[2022-06-26] MEDS: Lidocaine 5% Patch 2 PATCH TOPICAL (05:31)
[2022-06-26 05:41] VITALS: BP 133/81; PULSE 66; RESP 16
[2022-06-26] MEDS: AMOXICILLIN 500 MG CAPSULE PO ×2 (08:10→20:46)
[2022-06-26] MEDS: Allopurinol 100 MG Tablet PO (08:10)
[2022-06-26] MEDS: Multivitamins,Therapeutic Tablet 1 TABLET PO (08:10)
--- NOTE | 2022-06-26 09:50 | CASEMGMT ---
Social Work IDT met with patient and dtr for care plan meeting. Educated to Medicare benefit. Encouraged to contact secondary insurance to ensure copay coverage. Pts goal is to return home. Revisited code status and MOLST with pt and dtr. Pt/dtr confirmed full code. MOLST completed, placed in Dr. higginbotham. SW to continue to follow for DC planning. REMI PenningtonW
[2022-06-26 10:00] VITALS: PULSE 60; RESP 18; O2SAT 96
[2022-06-26 16:00] VITALS: BP 130/70; PULSE 60; RESP 16; TEMP 37.3; O2SAT 98
--- NOTE | 2022-06-26 16:19 | NURSING ---
Family and pt made aware that a patient tested positive for covid19
[2022-06-26] MEDS: Mirtazapine 15 MG Tablet PO (20:46)
[2022-06-26] MEDS: NYSTATIN 500,000 UNIT/5 ML UDC 500000 UNIT PO (20:49)
[2022-06-27 05:30] LABS: Absolute Lymphocyte Count 10.56 X10^3/uL (0.83-4.51); Absolute Neutrophil Count 1.2 X10^3/uL (2.0-7.7); Basophil# 0.02 X10^3/uL; Basophil% 0.2 % (0-1); Eosinophil# 0.14 X10^3/uL; Eosinophils% 1.2 % (0-5); Hematocrit 26.2 % (37-47); Hemoglobin 8.1 g/dL (12.0-15.0); Lymphocyte # 10.56 X10^3/ul (0.83-4.51); Lymphocyte % 86.9 % (19-41); Mean Corp Hgb Conc 30.9 g/dL (32-36); Mean Corpuscular Hgb 35.5 pg (27.0-32.0); Mean Corpuscular Volume 114.9 fL (81-99); Mean Platelet Vol. 10.2 fl (6.2-12.0); Monocyte# 0.26 X10^3/uL; Monocyte% 2.1 % (0-10); NRBC Flagged by Analyzer 0 % (0-5); Neutrophil # 1.15 X10^3/uL (2.7-7.7); Neutrophil % 9.4 % (47-70); POSITIVE COUNT YES; POSITIVE DIFFERENTIAL YES; POSITIVE MORPHOLOGY YES; Platelet Count 52 K/mm3 (150-450); RBC Distribution Width CV 18.5 % (11.6-14.6); RBC Distribution Width SD 75.1 fl (35.1-43.9); Red Blood Count 2.28 M/mm3 (4.2-5.4); White Blood Count 12.2 K/mm3 (4.4-11.0)
[2022-06-27 05:31] LABS: Differential Indicated SCAN CRITERIA MET
[2022-06-27] MEDS: Nystatin Powder 15gm Bottle 1 APPLIC TOPICAL ×2 (05:34→17:40)
[2022-06-27] MEDS: Magnesium Chloride 64 MG Delay Rel.Tablet 128 MG PO (05:35)
[2022-06-27] MEDS: NYSTATIN 500,000 UNIT/5 ML UDC 500000 UNIT PO ×4 (05:35→21:02)
[2022-06-27] MEDS: Cholecalciferol (VIT D3) 25 MCG TABLET (1,000 UNITS) PO (05:35)
[2022-06-27] MEDS: Furosemide 40 MG Tablet PO ×2 (05:35→14:46)
[2022-06-27] MEDS: Pantoprazole Sodium 40 MG Tablet PO ×2 (05:35→21:01)
[2022-06-27] MEDS: Menthol/Lanolin/Calamine/Znox 113 GM Tube 1 APPLIC TOPICAL ×3 (05:35→21:02)
[2022-06-27] MEDS: Lidocaine 5% Patch 2 PATCH TOPICAL (05:35)
[2022-06-27] MEDS: Senna/Docusate Sodium 1 Tablet 2 TABLET PO ×2 (05:35→21:01)
[2022-06-27] MEDS: Atenolol 50 MG Tablet PO (05:36)
[2022-06-27 05:42] LABS: Differential Comment SCANNED; Hypochromasia RARE; Macrocytosis 1+
[2022-06-27 05:43] LABS: Anisocytosis 1+
[2022-06-27 05:47] VITALS: BP 114/75; PULSE 63; RESP 18
[2022-06-27 05:52] LABS: Anion Gap 6 (5-15); BUN 30 mg/dL (7-18); BUN/Creat Ratio 19.2 RATIO (10-20); Calcium,Total 9.2 mg/dL (8.5-10.1); Chloride 112 mmol/L (98-107); Creatinine, Serum 1.56 mg/dL (0.55-1.02); EST Glomerular Filtration Rate 34 mL/min (>60); Est Glom Filt Rate - Afr Amer 41 mL/min (>60); Estimated Creatinine Clearance 28.44 ml/min; Glucose 109 mg/dL (74-106); Potassium 3.8 mmol/L (3.5-5.1); Sodium Level 143 mmol/L (136-145)
[2022-06-27] MEDS: Multivitamins,Therapeutic Tablet 1 TABLET PO (07:48)
[2022-06-27] MEDS: Allopurinol 100 MG Tablet PO (07:49)
[2022-06-27] MEDS: AMOXICILLIN 500 MG CAPSULE PO ×2 (07:49→21:01)
--- NOTE | 2022-06-27 08:55 | RAD_ITS ---
STUDY: X-RAY - ABDOMEN/PELVIS REASON FOR EXAM: Female, 77 years old. Nausea TECHNIQUE: Single AP view of the abdomen / pelvis. COMPARISON: None. FINDINGS: Small bilateral effusions worse on the left side with bibasilar atelectasis. There is an unremarkable bowel gas pattern. The visualized liver, spleen and kidneys are grossly normal in size and morphology. Normal soft tissue structures. There are degenerative changes of the visualized lumbar spine. Levoscoliosis. Marked degree of osteoarthritis and joint space narrowing of both hip joints. RAD/Abdomen Single View IMPRESSION: Nonspecific bowel gas pattern. Electronically Signed: Ramakrishna Cummins MD at 13:28 EDT ,
--- NOTE | 2022-06-27 09:43 | SP.MBSS_ITS ---
Modified Barium Swallow - Patient Information Study Date: 06/27/22 Study Time: 09:00 Direct Billable Minutes: 100 Total Minutes procedure & reportin Diagnosis: chronic kidney disease (N18.4), upper GI bleed (K92.2), debility Referring Physician: Ash Champion Chi Reason for Referral: Objectively assess swallow function, risk for aspiration, and determine alma delia mmendations for least restrictive diet textures and compensatory strategies to improve safety of swallow. Medical History: Julissa Limon is a 77 Female who presents to [facility] Emergency Department with back pain. Confusion, right shoulder blade pain. Nausea, poor intake, Fever 102. CT head negative, Chest X-ray negative, acute kidney injury, Urinalysis negative, covid19 negative, influenza negative. Infectious Disease consult for gram positive cocci bacteremia. Admitted to TCU for debility. Hold Eliquis, order Protonix, consult GI, for stool guaiac positive. Dr. Aleman EGD showed moderate Schatzki ring dilated, moderate hiatal hernia. Red blood in stomach. 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 Amoxicillin PO for enterococcus UTI/Bacteremia. Dentition: WNL Mental Status: WNL Respiratory Status: Oxygenating on Room Air - Penetration-Aspiration Scale Penetration-Aspiration Scale: OBJECTIVE ASSESSMENT OF SWALLOW FUNCTION (QUANTITATIVE ? PER TRIAL): PENETRATION / ASPIRATION SCALE (HOBBS): 1 = does not enter airway 2 = enters airway/above vocal folds/ejected 3 = enters airway/above vocal folds/not ejected 4 = enters airway/contacts vocal folds/ejected 5 = enters airway/contacts vocal folds/not ejected 6 = enters airway/below vocal folds/ejected 7 = enters airway/below vocal folds/not ejected despite effort 8 = enters airway/below vocal folds/no effort VIDEOFLOROSCOPIC SCALE SCORE (HOBBS): Grade I = aspiration of material that has penetrated into the laryngeal vestibule, intact cough reflex Grade II = aspiration < 10 % of the bolus, intact cough reflex Grade III = aspiration of < 10 % of the bolus, reduced cough reflex or aspiration of > 10 % of the bolus, intact cough reflex Grade IV = aspiration of > 10 % of the bolus, reduced cough reflex - Penetration-Aspiration Scale Score Thin Liquid via teaspoon Result: 1= does not enter airway Thin Liquid via teaspoon Trial 2 Result: 2= enter airway/above vocal folds/ejected Thin Liquid via small single sip from cup Result: 2= enter airway/above vocal folds/ejected [place] Thick Liquid via small single sip from cup Result: 2= enter airway/above vocal folds/ejected [place] Thick Liquid via small single sip from cup Result: 1= does not enter airway Pudding Result: 1= does not enter airway Cookie Result: 1= does not enter airway Thin Liquid via single sip from straw Result: 1= does not enter airway Thin Liquid via sequential sips from straw Result: 3= enters airways/above vocal folds/not ejected Thin Liquid via small single sip from cup Effortful swallow Result: 2= enter airway/above vocal folds/ejected - Oral Phase Labial Seal: No Labial Escape Tongue Control During Bolus Hold: Posterior escape of greater than half of bolus Bolus Preparation/Mastication: Timely and efficient chewing and mashing Bolus Transport/Lingual Motion: Delayed initiation of tongue motion Oral Residue: Residue collection on oral structures - Pharyngeal Phase Initiation of Pharyngeal Swallow: Bolus head in pyriforms Soft Palate Elevation: No bolus between soft palate and pharyngeal wall Laryngeal Elevation: Partial superior movement thyroid cart/partial apprx aryt- epig petiole Anterior Hyoid Excursion: Partial anterior movement Epiglottic Movement: Complete inversion Laryngeal Vestibule Closure at Height of Swallow: Incomplete; narrow column of air/contrast in laryngeal vestibule Pharyngeal Stripping Wave: Present - diminished Pharyngoesophageal Segment Opening: Complete distension and complete duration; n o obstruction of flow Tongue Base Retraction: Trace column of contrast between tongue base & post. pharyngeal wall Pharyngeal Residue: Trace residue within or on pharyngeal structures - Esophageal Phase Esophageal Clearance: Esophageal retention - Treatment Strategies Effects of treatment strategies attemped:: effortful swallow = not effective - Diagnosis/Impression Diagnosis: mild oropharyngeal dysphagia (R13.12) Impression: Patient presents w/ mild oropharyngeal dysphagia. Oral phase primarily marked by... - delayed initiation of tongue motion - decreased bolus control resulting in posterior loss of greater than half of bolus to the pyriforms and laryngeal vestibule w/ sequential sips and thin by cup w/ use of compensatory strategy of effortful swallow. Pre-mature spillage to the laryngeal vestibule increased risk for pre prandial aspiration. - mild oral residue seen spilling to the vallecula post deglutition Pharyngeal phase primarily marked by... - decreased airway closure during deglutition attributed to reduced laryngeal elevation and reduced anterior hyoid excursion - laryngeal penetration seen w/ thin liquid by tsp, thin liquid by cup that was fully ejected and thin liquid by sequential straw did not fully eject increasing risk for post prandial aspiration of residue remaining in laryngeal vestibule. No aspiration seen throughout study. - trace pharyngeal residue - delayed swallow onset Esophageal phase primarily marked by... - Mild esophageal retention seen w/ various consistencies w/ timely clearance. Noteworthy as patient reports intermittent sensation of retention of food and drink in throat, but exhibited trace pharyngeal residue during study. - Recommendations Diet: Regular Textures, Thin Liquids Compensatory Strategies: Small Bites, Small Sips, Slow Rate, Alternate bites/solids and sips/liquids, Sitting upright, Remain sitting upright for 30 minutes after PO intake Recommend Repeat Modified Barium Swallow: TBD Need for Skilled Speech Therapy Services: Yes Recommended Referrals: GI Consult - would recommend OP follow-up w/ Dr. Aleman. Education Completed: 1. Described result of evaluation., 2. Pt understands evaluation & agrees with goals and treatment plan., 4. Family/caregivers under stand evaluation & agree w/ goals & tx plan. - Status Active ST Patient: Active - Contact Information [facility] Speech Therapy:: Cris Nichols M.A. [facility] Speech-Language Pathologist [facility] [address] [place] [address] [email or web address] [phone] 06/27/22 10:36
--- NOTE | 2022-06-27 15:44 | NURSING ---
Pt returned from appt with Christiana Zaidi NP new order for BNP.
[2022-06-27 16:00] VITALS: PULSE 75; RESP 19; TEMP 36.1
--- NOTE | 2022-06-27 16:53 | NURSING ---
Christiana Zaidi NP called this nurse and N.O. to change Lasix to 80mg @ 0600 then 6 hrs later give 40mg Lasix for 5 days then return to 40mg BID. BNP needs to be repeated 7 days. Orders read back to Christiana Zaidi NP.
[2022-06-27] MEDS: Ondansetron ODT 4 MG Tablet 8 MG PO (17:42)
[2022-06-27] MEDS: Mirtazapine 15 MG Tablet PO (21:03)
[2022-06-27 21:12] VITALS: PULSE 61; RESP 16; O2SAT 94
[2022-06-28] MEDS: Lidocaine 5% Patch 2 PATCH TOPICAL (05:21)
[2022-06-28] MEDS: Menthol/Lanolin/Calamine/Znox 113 GM Tube 1 APPLIC TOPICAL ×3 (05:21→20:35)
[2022-06-28] MEDS: Furosemide 80 MG Tablet PO (05:21)
[2022-06-28] MEDS: Nystatin Powder 15gm Bottle 1 APPLIC TOPICAL ×2 (05:22→16:52)
[2022-06-28] MEDS: NYSTATIN 500,000 UNIT/5 ML UDC 500000 UNIT PO ×4 (05:23→20:37)
[2022-06-28 05:26] VITALS: BP 131/64; PULSE 60
[2022-06-28] MEDS: Magnesium Chloride 64 MG Delay Rel.Tablet 128 MG PO (08:18)
[2022-06-28] MEDS: AMOXICILLIN 500 MG CAPSULE PO ×2 (08:18→20:36)
[2022-06-28] MEDS: Atenolol 50 MG Tablet PO (08:19)
[2022-06-28] MEDS: Allopurinol 100 MG Tablet PO (08:19)
[2022-06-28] MEDS: Pantoprazole Sodium 40 MG Tablet PO ×2 (08:19→20:34)
[2022-06-28] MEDS: Multivitamins,Therapeutic Tablet 1 TABLET PO (08:19)
[2022-06-28] MEDS: Cholecalciferol (VIT D3) 25 MCG TABLET (1,000 UNITS) PO (08:19)
[2022-06-28] MEDS: Senna/Docusate Sodium 1 Tablet 2 TABLET PO ×2 (08:19→20:35)
[2022-06-28] MEDS: Calcitriol 0.25 MCG Capsule PO (08:19)
[2022-06-28 08:22] VITALS: BP 127/66; PULSE 64
[2022-06-28] MEDS: Ondansetron ODT 4 MG Tablet 8 MG PO ×2 (08:30→20:32)
[2022-06-28] MEDS: Furosemide 40 MG Tablet PO (12:43)
[2022-06-28 16:00] VITALS: BP 119/59; PULSE 60; RESP 20; TEMP 36.7; O2SAT 96
--- NOTE | 2022-06-28 16:02 | CASEMGMT ---
Social Work BIMS () and PHQ-9 (04/22) completed for MDS assessment. PHQ-9 score indicates mild depression. SW explored positive responses further. Pt explained her poor appetite has been ongoing for the past 2 years. Pt explained the sight of food makes me nauseous and then I throw up my food. If it doesn't have salt on it; it's just not edible. SW and pt discussed diet, interventions, anxiety, any triggers, etc. at length. Pt is agreeable to any recommendations to enjoy eating again and regain appetite. on unit. SW spoke with Dr. Florez recommended start of medication that will see outcomes within a week. SW followed up with pt. Pt looking forward to results. Eunice Briones, MS CARSONSW
[2022-06-28] MEDS: Metoclopramide 10 MG Tablet PO ×2 (16:50→20:37)
[2022-06-28] MEDS: Mirtazapine 15 MG Tablet PO (20:38)
[2022-06-28 21:00] VITALS: PULSE 62; RESP 16; O2SAT 95
[2022-06-29] MEDS: Menthol/Lanolin/Calamine/Znox 113 GM Tube 1 APPLIC TOPICAL ×3 (04:53→21:03)
[2022-06-29] MEDS: Furosemide 80 MG Tablet PO (04:53)
[2022-06-29] MEDS: Lidocaine 5% Patch 2 PATCH TOPICAL (04:53)
[2022-06-29] MEDS: Nystatin Powder 15gm Bottle 1 APPLIC TOPICAL ×2 (04:54→20:59)
[2022-06-29] MEDS: Metoclopramide 10 MG Tablet PO ×2 (04:54→12:08)
[2022-06-29] MEDS: NYSTATIN 500,000 UNIT/5 ML UDC 500000 UNIT PO ×4 (04:54→21:01)
[2022-06-29] MEDS: Ondansetron ODT 4 MG Tablet 8 MG PO ×2 (07:42→16:34)
[2022-06-29 08:05] LABS: Absolute Neutrophil Count 0.7 X10^3/uL (2.0-7.7); Basophil# 0.02 X10^3/uL; Basophil% 0.2 % (0-1); Eosinophil# 0.15 X10^3/uL; Eosinophils% 1.4 % (0-5); Hematocrit 26.7 % (37-47); Lymphocyte % 89.4 % (19-41); Mean Corpuscular Hgb 34.8 pg (27.0-32.0); Mean Corpuscular Volume 116.1 fL (81-99); Mean Platelet Vol. 11.3 fl (6.2-12.0); Monocyte# 0.25 X10^3/uL; Monocyte% 2.3 % (0-10); NRBC Flagged by Analyzer 0 % (0-5); Neutrophil # 0.71 X10^3/uL (2.7-7.7); Neutrophil % 6.6 % (47-70); POSITIVE COUNT YES; POSITIVE DIFFERENTIAL YES; POSITIVE MORPHOLOGY YES; Platelet Count 53 K/mm3 (150-450); RBC Distribution Width CV 18.2 % (11.6-14.6); RBC Distribution Width SD 77.8 fl (35.1-43.9); White Blood Count 10.7 K/mm3 (4.4-11.0)
[2022-06-29 08:14] LABS: Anion Gap 6 (5-15); BUN 31 mg/dL (7-18); BUN/Creat Ratio 17.8 RATIO (10-20); Calcium,Total 9.6 mg/dL (8.5-10.1); Chloride 113 mmol/L (98-107); Creatinine, Serum 1.74 mg/dL (0.55-1.02); EST Glomerular Filtration Rate 30 mL/min (>60); Est Glom Filt Rate - Afr Amer 36 mL/min (>60); Estimated Creatinine Clearance 25.49 ml/min; Glucose 99 mg/dL (74-106); Potassium 3.8 mmol/L (3.5-5.1); Sodium Level 144 mmol/L (136-145)
[2022-06-29 08:21] LABS: Differential Indicated SCAN CRITERIA MET
[2022-06-29] MEDS: Atenolol 50 MG Tablet PO (08:48)
[2022-06-29] MEDS: Magnesium Chloride 64 MG Delay Rel.Tablet 128 MG PO (08:48)
[2022-06-29] MEDS: Pantoprazole Sodium 40 MG Tablet PO ×2 (08:48→21:01)
[2022-06-29] MEDS: AMOXICILLIN 500 MG CAPSULE PO ×2 (08:48→21:02)
[2022-06-29] MEDS: Multivitamins,Therapeutic Tablet 1 TABLET PO (08:48)
[2022-06-29] MEDS: Senna/Docusate Sodium 1 Tablet 2 TABLET PO ×2 (08:48→21:02)
[2022-06-29] MEDS: Cholecalciferol (VIT D3) 25 MCG TABLET (1,000 UNITS) PO (08:48)
[2022-06-29] MEDS: Allopurinol 100 MG Tablet PO (08:48)
[2022-06-29 08:49] VITALS: BP 120/53; PULSE 60
[2022-06-29 09:28] LABS: Anisocytosis 2+; Differential Comment SCANNED; Platelet Estimate MKD DEC (ADEQ); Reactive Lymphocyte 1+
[2022-06-29 09:29] LABS: Hypochromasia 1+; Macrocytosis 2+
[2022-06-29] MEDS: Tuberculin,Purif.prot.deriv. 50 TU/ML Vial 0.1 ML ID (12:07)
[2022-06-29] MEDS: Furosemide 40 MG Tablet PO (12:08)
--- NOTE | 2022-06-29 13:43 | NURSING ---
Notified Dr. Champion of pt and family requesting Reglan be discontinued. Received order to d/c Reglan
--- NOTE | 2022-06-29 14:01 | NURSING ---
pt & daughter requesting reglan be dc'd. feels pt is having side effects, claustrophobia & heavy feelings to legs at night.
[2022-06-29 15:01] VITALS: BP 134/61; PULSE 60; RESP 16; TEMP 37.4; O2SAT 96
[2022-06-29] MEDS: Mirtazapine 15 MG Tablet PO (21:01)
[2022-06-29 22:00] VITALS: PULSE 62; RESP 14; O2SAT 95
[2022-06-30] MEDS: Menthol/Lanolin/Calamine/Znox 113 GM Tube 1 APPLIC TOPICAL ×2 (05:13→16:21)
[2022-06-30] MEDS: Acetaminophen 325 MG Tablet 650 MG PO (05:13)
[2022-06-30] MEDS: Nystatin Powder 15gm Bottle 1 APPLIC TOPICAL ×2 (05:13→16:21)
[2022-06-30] MEDS: Furosemide 80 MG Tablet PO (05:14)
[2022-06-30] MEDS: NYSTATIN 500,000 UNIT/5 ML UDC 500000 UNIT PO ×3 (05:14→21:53)
[2022-06-30] MEDS: Ondansetron ODT 4 MG Tablet 8 MG PO ×2 (07:05→16:20)
[2022-06-30] MEDS: Multivitamins,Therapeutic Tablet 1 TABLET PO (08:27)
[2022-06-30] MEDS: AMOXICILLIN 500 MG CAPSULE PO ×2 (08:27→21:53)
[2022-06-30] MEDS: Allopurinol 100 MG Tablet PO (08:27)
[2022-06-30] MEDS: Pantoprazole Sodium 40 MG Tablet PO ×2 (08:27→21:54)
[2022-06-30] MEDS: Cholecalciferol (VIT D3) 25 MCG TABLET (1,000 UNITS) PO (08:27)
[2022-06-30] MEDS: Senna/Docusate Sodium 1 Tablet 2 TABLET PO ×2 (08:27→21:53)
[2022-06-30] MEDS: Atenolol 50 MG Tablet PO (08:27)
[2022-06-30] MEDS: Magnesium Chloride 64 MG Delay Rel.Tablet 128 MG PO (08:28)
[2022-06-30 08:30] VITALS: BP 139/61; PULSE 60
[2022-06-30 08:39] VITALS: PULSE 60; RESP 16; O2SAT 99
[2022-06-30 08:58] LABS: Anion Gap 5 (5-15); BUN 34 mg/dL (7-18); Calcium,Total 9.7 mg/dL (8.5-10.1); Chloride 114 mmol/L (98-107); EST Glomerular Filtration Rate 26 mL/min (>60); Est Glom Filt Rate - Afr Amer 31 mL/min (>60); Estimated Creatinine Clearance 22.18 ml/min; Glucose 125 mg/dL (74-106); Potassium 3.9 mmol/L (3.5-5.1); Sodium Level 145 mmol/L (136-145)
[2022-06-30] MEDS: Furosemide 40 MG Tablet PO (11:46)
--- NOTE | 2022-06-30 12:42 | NURSING ---
Addendum entered by Karen Reardon 06/30/22 12:52: dr brooke notified that daughter fine with decreasing lasix dose, new order to change lasix 40mg BID and schedule zofran before meals. pt updated Original Note: pt daughter made aware of pt kidney function and would like dr brooke to decrease lasix
[2022-06-30 14:08] VITALS: BP 146/71; PULSE 60; RESP 18; TEMP 36.7; O2SAT 99
--- NOTE | 2022-06-30 15:01 | NURSING ---
pt daughter reported that she feels her mother is having trouble breathing because she keeps putting her legs down. This nurse asked pt if she was having SOB and pt denied and daughter said mom, yes you are I have watched you, you have put your legs down in chair like 17 times today and could not catch your breath pt stared down daughter and daughter apologized. sat 99% on rm air vitals stable. lungs clear, slightly diminished. Instructed pt to call this nurse if she does have difficulty breathing. pt verbalized understanding and then stated it is mostly at night when lying in bed, not when sitting in this chair, I do get claustrophobic call light in reach.
[2022-06-30] MEDS: Mirtazapine 15 MG Tablet PO (21:53)
[2022-06-30 22:00] VITALS: PULSE 60; RESP 16; O2SAT 99
[2022-07-01] MEDS: NYSTATIN 500,000 UNIT/5 ML UDC 500000 UNIT PO ×4 (06:22→20:35)
[2022-07-01] MEDS: Furosemide 40 MG Tablet PO ×2 (06:22→17:26)
[2022-07-01] MEDS: Ondansetron ODT 4 MG Tablet 8 MG PO ×3 (06:23→17:26)
[2022-07-01] MEDS: Nystatin Powder 15gm Bottle 1 APPLIC TOPICAL ×2 (06:23→20:33)
[2022-07-01] MEDS: Menthol/Lanolin/Calamine/Znox 113 GM Tube 1 APPLIC TOPICAL ×3 (06:27→20:34)
[2022-07-01 07:04] LABS: Anion Gap 6 (5-15); BUN 39 mg/dL (7-18); BUN/Creat Ratio 19.9 RATIO (10-20); Calcium,Total 9.6 mg/dL (8.5-10.1); Chloride 113 mmol/L (98-107); Creatinine, Serum 1.96 mg/dL (0.55-1.02); EST Glomerular Filtration Rate 26 mL/min (>60); Est Glom Filt Rate - Afr Amer 32 mL/min (>60); Estimated Creatinine Clearance 22.63 ml/min; Glucose 111 mg/dL (74-106); Potassium 4.7 mmol/L (3.5-5.1); Sodium Level 145 mmol/L (136-145)
[2022-07-01] MEDS: Multivitamins,Therapeutic Tablet 1 TABLET PO (08:10)
[2022-07-01] MEDS: Allopurinol 100 MG Tablet PO (08:10)
[2022-07-01] MEDS: Cholecalciferol (VIT D3) 25 MCG TABLET (1,000 UNITS) PO (08:10)
[2022-07-01] MEDS: Atenolol 50 MG Tablet PO (08:10)
[2022-07-01] MEDS: Senna/Docusate Sodium 1 Tablet 2 TABLET PO ×2 (08:10→20:34)
[2022-07-01] MEDS: Pantoprazole Sodium 40 MG Tablet PO ×2 (08:10→20:34)
[2022-07-01] MEDS: AMOXICILLIN 500 MG CAPSULE PO (08:10)
[2022-07-01] MEDS: Calcitriol 0.25 MCG Capsule PO (08:10)
[2022-07-01] MEDS: Magnesium Chloride 64 MG Delay Rel.Tablet 128 MG PO (08:11)
[2022-07-01 08:12] VITALS: BP 144/73; PULSE 61
--- NOTE | 2022-07-01 14:00 | NURSING ---
dr brooke updated on daughter request on something else to decrease edema in legs. new order to elevate legs while in bed on 3 pillows. pt refused. pt states it makes her claustrophobic, she does not sleep much in bed she sits in recliner chair with legs elevated. spoke with therapy about family assisting pt with ambulation in room. therapy ok'd and daughter updated to get pt up moving more in room to move fluid.
--- NOTE | 2022-07-01 14:31 | NURSING ---
moved pt from room 11 to room 17 to give pt more room to ambulate farther distance to assist with fluid movement. family and pt agreeable.
[2022-07-01 16:00] VITALS: BP 120/54; PULSE 62; RESP 24; TEMP 37.2; O2SAT 93
[2022-07-01] MEDS: Mirtazapine 15 MG Tablet PO (20:36)
[2022-07-01 22:00] VITALS: PULSE 60; RESP 16; O2SAT 96
[2022-07-02] MEDS: Ondansetron ODT 4 MG Tablet 8 MG PO ×3 (05:19→17:15)
[2022-07-02] MEDS: NYSTATIN 500,000 UNIT/5 ML UDC 500000 UNIT PO ×4 (05:19→21:30)
[2022-07-02] MEDS: Menthol/Lanolin/Calamine/Znox 113 GM Tube 1 APPLIC TOPICAL ×3 (05:20→21:30)
[2022-07-02] MEDS: Nystatin Powder 15gm Bottle 1 APPLIC TOPICAL ×2 (05:20→17:19)
[2022-07-02] MEDS: Furosemide 40 MG Tablet PO ×2 (05:20→17:16)
[2022-07-02] MEDS: Cholecalciferol (VIT D3) 25 MCG TABLET (1,000 UNITS) PO (08:35)
[2022-07-02] MEDS: Allopurinol 100 MG Tablet PO (08:35)
[2022-07-02] MEDS: Atenolol 50 MG Tablet PO (08:35)
[2022-07-02] MEDS: Senna/Docusate Sodium 1 Tablet 2 TABLET PO ×2 (08:36→21:30)
[2022-07-02] MEDS: Pantoprazole Sodium 40 MG Tablet PO ×2 (08:36→21:30)
[2022-07-02] MEDS: Magnesium Chloride 64 MG Delay Rel.Tablet 128 MG PO (08:36)
[2022-07-02] MEDS: Multivitamins,Therapeutic Tablet 1 TABLET PO (08:36)
[2022-07-02 08:38] VITALS: BP 145/61; PULSE 58
[2022-07-02 15:43] VITALS: BP 135/69; PULSE 60; RESP 14; O2SAT 100
[2022-07-02 16:08] VITALS: TEMP 36.6
[2022-07-02] MEDS: Mirtazapine 15 MG Tablet PO (21:31)
[2022-07-03] MEDS: Nystatin Powder 15gm Bottle 1 APPLIC TOPICAL ×2 (05:21→17:12)
[2022-07-03] MEDS: Furosemide 40 MG Tablet PO ×2 (05:21→17:07)
[2022-07-03] MEDS: NYSTATIN 500,000 UNIT/5 ML UDC 500000 UNIT PO ×4 (05:21→21:14)
[2022-07-03] MEDS: Menthol/Lanolin/Calamine/Znox 113 GM Tube 1 APPLIC TOPICAL ×2 (05:21→14:06)
[2022-07-03] MEDS: Ondansetron ODT 4 MG Tablet 8 MG PO ×3 (05:22→17:06)
--- NOTE | 2022-07-03 08:28 | MDS.RN ---
Information for the mds was obtained from review of the clinical record, interview of resident, staff, and direct observation of resident's care.
[2022-07-03] MEDS: Cholecalciferol (VIT D3) 25 MCG TABLET (1,000 UNITS) PO (09:11)
[2022-07-03] MEDS: Allopurinol 100 MG Tablet PO (09:11)
[2022-07-03] MEDS: Atenolol 50 MG Tablet PO (09:11)
[2022-07-03] MEDS: Multivitamins,Therapeutic Tablet 1 TABLET PO (09:11)
[2022-07-03] MEDS: Calcitriol 0.25 MCG Capsule PO (09:11)
[2022-07-03] MEDS: Pantoprazole Sodium 40 MG Tablet PO ×2 (09:11→21:15)
[2022-07-03] MEDS: Magnesium Chloride 64 MG Delay Rel.Tablet 128 MG PO (09:11)
[2022-07-03 09:15] VITALS: BP 137/72; PULSE 62
[2022-07-03 15:19] VITALS: BP 125/60; PULSE 60; RESP 14; TEMP 36.3; O2SAT 95
[2022-07-03 20:00] VITALS: PULSE 60; RESP 16; O2SAT 96
--- NOTE | 2022-07-03 20:26 | NURSING ---
Called [facility] to update on pt's Decreased Jae's Left Message with nurse did not get a return call. Pt to have BNP tomorrow.
[2022-07-03] MEDS: Mirtazapine 15 MG Tablet PO (21:14)
--- NOTE | 2022-07-04 05:55 | NURSING ---
Pt. voices frustration related to continued +2 pitting edema to BLE. Patient states edema to BLE complicates transfers/ambulation/and progress with therapy. Educated patient on communication from regarding stage 4 CKD and current lasix order, patient requests further recommendations from . Patient notified written communication to be left for Dr. Champion review this AM regarding above, patient expresses thanks. Patient also educated on order to elevate heels on pillows, patient often declines to sleep in bed and is frequently observed with BLE flat on ground. Patient states I know I need to elevate my legs but it gives me claustrophobia, patient encouraged to elevate BLE frequently as ordered. Lung sounds clear/diminished. No resp distress observed or reported. Call light in reach.
[2022-07-04] MEDS: Nystatin Powder 15gm Bottle 1 APPLIC TOPICAL ×2 (06:38→22:20)
[2022-07-04] MEDS: NYSTATIN 500,000 UNIT/5 ML UDC 500000 UNIT PO ×4 (06:39→22:17)
[2022-07-04] MEDS: Ondansetron ODT 4 MG Tablet 8 MG PO ×2 (06:39→14:56)
[2022-07-04] MEDS: Furosemide 40 MG Tablet PO ×2 (06:39→18:26)
[2022-07-04] MEDS: Menthol/Lanolin/Calamine/Znox 113 GM Tube 1 APPLIC TOPICAL ×3 (06:39→22:21)
--- NOTE | 2022-07-04 08:00 | NURSING ---
dr brooke spoke with pt regarding discharging home with hospice. Eunice notified.
[2022-07-04] MEDS: Atenolol 50 MG Tablet PO (08:22)
[2022-07-04] MEDS: Cholecalciferol (VIT D3) 25 MCG TABLET (1,000 UNITS) PO (08:22)
[2022-07-04] MEDS: Magnesium Chloride 64 MG Delay Rel.Tablet 128 MG PO (08:22)
[2022-07-04] MEDS: Allopurinol 100 MG Tablet PO (08:23)
[2022-07-04] MEDS: Pantoprazole Sodium 40 MG Tablet PO ×2 (08:23→22:17)
[2022-07-04] MEDS: Multivitamins,Therapeutic Tablet 1 TABLET PO (08:23)
[2022-07-04] MEDS: Senna/Docusate Sodium 1 Tablet 2 TABLET PO ×2 (08:23→22:17)
[2022-07-04 08:28] VITALS: BP 136/63; PULSE 62; RESP 18
[2022-07-04 08:43] VITALS: PULSE 72; RESP 18; O2SAT 97
--- NOTE | 2022-07-04 09:25 | CASEMGMT ---
Addendum entered by uEnice Briones 07/04/22 13:02: Spoke with pt at bedside. Inquired about conversation with Dr. Champion this AM. Pt replied nothing important happened. He just kept telling me I was dying. I'm not in denial about dying, but why not have a positive outlook for the days I have left. SW acknowledged feelings and outlook. Inquired about goals for discharge. Educated to difference between skilled HHC and hospice services. Pt stated she would like to DC home soon with dtr, but will need to speak with dtr in person to decide on date and with what services. Pt requesting FWW and hospital bed at home. SW educated hospice can provide that DME if admitted. Pt expressed understanding. Dtr presented to pt room and requested to speak with this worker. Notified by nursing as well. SW met with pt and dtr in room. Dtr requesting to DC home tomorrow. Denying HHC or hospice services. Dtr stated they are not opposed to hospice, but just need to think about it. SW offered to provide list of hospice agencies. Dtr appreciative. Dtr unsure of hospital bed. SW offered to provide script for hospital bed and DME providers if pt chooses to get hospital bed while at home and not electing hospice, but can still order FWW for DC. Dtr appreciative. [place] [facility] [place] and email. Plan: DC home with dtr 07/05, FWW [facility] Original Note: Social Work Reviewed Dr. Champion's note and request to follow up with DC plans with pt. Dtr typically visits daily, thus, SW contacted dtr to schedule time to speak with both pt and dtr together. Dtr stated she is out of State right now and will not be visiting, but can speak via phone. SW to speak with pt first, then update dtr, as pt agrees. Dtr expressed understanding. [facility]
[2022-07-04 09:49] LABS: Anion Gap 6 (5-15); BUN 51 mg/dL (7-18); BUN/Creat Ratio 23.8 RATIO (10-20); Calcium,Total 10.1 mg/dL (8.5-10.1); Chloride 111 mmol/L (98-107); Creatinine, Serum 2.14 mg/dL (0.55-1.02); EST Glomerular Filtration Rate 24 mL/min (>60); Est Glom Filt Rate - Afr Amer 29 mL/min (>60); Estimated Creatinine Clearance 20.73 ml/min; Glucose 122 mg/dL (74-106); Potassium 4.3 mmol/L (3.5-5.1); Sodium Level 144 mmol/L (136-145)
[2022-07-04 10:40] LABS: BNP,B-Type NATRIURETIC PEPTIDE 502.8 pg/mL (0-100)
[2022-07-04 15:11] VITALS: BP 129/69; PULSE 60; RESP 14; TEMP 36.6; O2SAT 96
--- NOTE | 2022-07-04 19:17 | DS.PCM_ITS ---
Providers Date of Admission: 06/21/22 Primary Care Physician: Dr. Israel Bucio DO Reason For Visit: ACUTE FEBRIAL ILLNESS Diagnosis Discharge Diagnosis (1) Debility: Status: Acute Code(s): R53.81 - Other malaise (2) Encephalopathy: Status: Acute Code(s): G93.40 - Encephalopathy, unspecified (3) Bacteremia due to Enterococcus: Status: Acute Code(s): R78.81 - Bacteremia; B95.2 - Enterococcus as the cause of diseases classified elsewhere (4) Enterococcus UTI: Status: Acute Code(s): N39.0 - Urinary tract infection, site not specified; B95.2 - Enterococcus as the cause of diseases classified elsewhere (5) Acute kidney injury: Status: Acute Code(s): N17.9 - Acute kidney failure, unspecified (6) Anemia: Status: Acute Code(s): D64.9 - Anemia, unspecified (7) Upper gastrointestinal bleeding: Status: Acute Code(s): K92.2 - Gastrointestinal hemorrhage, unspecified (8) Gout: Status: Acute Code(s): M10.9 - Gout, unspecified (9) Hypertension: Status: Chronic Code(s): I10 - Essential (primary) hypertension (10) Atrial fibrillation: Status: Acute Code(s): I48.91 - Unspecified atrial fibrillation (11) Chronic lymphocytic leukemia: Status: Chronic Code(s): C91.10 - Chronic lymphocytic leukemia of B-cell type not having achieved remission (12) Chronic kidney disease, stage 4 (severe): Status: Chronic Code(s): N18.4 - Chronic kidney disease, stage 4 (severe) (13) Hyperparathyroidism: Status: Acute Code(s): E21.3 - Hyperparathyroidism, unspecified Plan 77 year old female with below past medical history hospitalized for encephalopathy secondary to Enterococcus urinary tract infection/bacteremia, complicated by acute on chronic kidney failure, upper gastrointestinal bleed, admitted to TCU with debility, here for rehabilitation, strengthening, prior to discharge home alone. * Debility - PT/OT. * Pain - Tylenol 650mg q6 prn pain (1-3), [place] 1 tablet Q6 prn pain (6-10), Lidoderm 2 patches topical daily. * Bowel - Senna/colace 2 tablets bid prn. * Adult immunization - Administer pneumonia vaccine, covid19 vaccine, flu vaccine as appropriate. * DVT prophylaxis - Not necessary, on Eliquis. * Gout - Allopuinol 100mg daily. * Enterococcus UTI/Bacteremia - Amoxicillin 500mg q12h thru 07/01/2022. * Atrial Fibrillation - Eliquis 2.5mg bid. * Hyperparathyroidism - Calcitriol 0.25mg MWF. * Nutrition - Ensure Compact 118ml 4x/day, MVI daily. * Anxiety - Hydroxyzine 25mg qhs prn. * Hypomagnesemia - Magnesium chloride 128mg daily. * Skin irritation - Calmoseptine topical bid. * Depression /insomnia/appetite loss - Mirtazapine 15mg qhs, stable chronic computer terminal operator use, GDR not recommended. * Tinea Corporis - Nystatin powder topical bid. * GERD - Pantoprazole 40mg daily. * Vitamin D deficiency - Vitamin D3 25mcg daily. Medications at Discharge Home Medications multivitamin with folic acid 400 mcg tablet 1 tab PO DAILY supplement 07/18/14 allopurinol 100 mg tablet 100 mg PO DAILYCM gout 01/20/17 acetaminophen 325 mg tablet 650 mg PO Q6H PRN PRN Pain Score 1-10/Temp > 100.7 F 07/19/20 calcitriol 0.25 mcg capsule 0.25 mcg PO MOWEFR supplement 12/04/20 magnesium oxide 250 mg PO DAILY supplement 02/18/22 cholecalciferol (vitamin D3) 50 mcg (2,000 unit) tablet 1,000 unit PO DAILY supplement 03/11/22 atenolol 50 mg tablet 50 mg PO DAILY 06/27/22 furosemide 40 mg tablet (Lasix) 40 mg PO BID 06/27/22 atenolol 50 mg tablet 50 mg PO DAILY@0800 #0 tabs 07/04/22 furosemide 40 mg tablet 40 mg PO BID #0 tabs 07/04/22 mirtazapine 15 mg tablet 15 mg PO QHS sleep 30 days #30 tabs 07/04/22 ondansetron 4 mg disintegrating tablet 8 mg PO TIDAC 30 days #180 tabs 07/04/22 pantoprazole 40 mg tablet,delayed release 40 mg PO BID reflux 30 days #60 tabs 07/04/22 Hospital Course Operations None Procedures None Summary of Care Provided Minutes Spent on Discharge: 35 Hospital Course: 77 year old female with below past medical history hospitalized for encephalopathy secondary to Enterococcus urinary tract infection/bacteremia, complicated by acute on chronic kidney failure, upper gastrointestinal bleed, admitted to TCU with debility, here for rehabilitation, strengthening, prior to discharge home alone. Resident is dying. Discharge home with daughter 07/05/2022, consider Hospice. Physical Exam Const alert General Appearance: cooperative HEENT normocephalic Eyes PERRL and EOMs intact bilaterally Neck supple, no JVD and no carotid bruits Resp normal respiratory effort, normal air movement and clear to auscultation bilaterally Cardio regular rate and regular rhythm GI normal to inspection, nondistended, normoactive bowel sounds, non-tender and non-distended Extremity normal capillary refill General Extremity: edema bilateral Skin no rashes or lesions noted General Skin Exam: no breakdown Psych affect normal Appearance: appropriate Weight / BMI Weight Weight: 91.989 kg Body Mass Index (BMI) 31.9 ABG / Lab / Microbiology Data Result Diagrams: 06/29/22 07:20 07/04/22 09:25 Laboratory: Laboratory Results - last 24 hr 07/04/22 09:25: B-Natriuretic Peptide 502.8 H 07/04/22 09:25: Sodium 144, Potassium 4.3, Chloride 111 H, Carbon Dioxide 27.0, Anion Gap 6, BUN 51 H, Creatinine 2.14 H, Estim Creat Clear Calc 20.73, Est GFR (MDRD) Af Amer 29 L, Est GFR (MDRD) Non-Af 24 L, BUN/Creatinine Ratio 23.8 H, Glucose 122 H, Calcium 10.1 Microbiology: Microbiology 07/04/22 08:30 Nasal Secretion SARS-CoV-2 Antigen (Rapid) - Final 06/28/22 10:54 Nasal Secretion SARS-CoV-2 Antigen (Rapid) - Final D/C Instructions Discharge Diet: No restrictions Discharge Activity: Return to Normal Activity, May Shower and Use Walker Weight Bearing Status: Weight bearing as tolerated Call your doctor if you observe: Fever of 101 or Higher, Inability to urinate, Inability to have a bowel movement, Shortness of breath, Dizziness, Fainting spells, Swelling in the ankles, Chest pain and Uncontrolled pain Additional Instructions: Discharge home with daughter 07/05/2022, consider Hospice. Please Follow Up With: FriendHenrique, DO When: N/A. Meaningful Use Info Meaningful Use Diagnoses (Choose all that apply): None applicable Discharge Plan Admission Admit Date/Time: 06/21/22 17:12 Primary Reason for Your Visit: Debility. Attending Provider: Ash Champion Chi Primary Care Provider: Israel Bucio Instructions Additional Instructions / Restrictions: Discharge home with daughter 07/05/2022, consider Hospice. Discharge Orders/Prescriptions Prescriptions: New furosemide 40 mg Tablet 40 mg PO BID Qty: 0 0RF ondansetron 4 mg Tablet,Disintegrating 8 mg PO TIDAC 30 Days Qty: 180 0RF atenolol 50 mg Tablet 50 mg PO DAILY@0800 Qty: 0 0RF Continued calcitriol 0.25 mcg capsule 0.25 mcg PO WE Rx Instructions: 0.25 mcg PO Friday, Friday and Friday; magnesium oxide 250 mg magnesium tablet 250 mg PO DAILY cholecalciferol (vitamin D3) 50 mcg (2,000 unit) tablet 1,000 unit PO DAILY atenolol 50 mg tablet 50 mg PO DAILY furosemide [Lasix] 40 mg tablet 40 mg PO BID multivitamin with folic acid 1 TABLET tablet 1 tab PO DAILY allopurinol 100 MG tablet 100 mg PO DAILYCM acetaminophen 325 MG tablet 650 mg PO Q6H PRN PRN (Reason: Pain Score 1-10/Temp > 100.7 F) 0RF pantoprazole 40 mg tablet,delayed release (DR/EC) 40 mg PO BID 30 Days Qty: 60 0RF mirtazapine 15 mg tablet 15 mg PO QHS 30 Days Qty: 30 0RF Discontinued hydroxyzine HCl 25 mg tablet 25 mg PO QHS PRN (Reason: Anxiety) sennosides-docusate sodium [Stool Softener-Stimulant Laxat] 8.6-50 mg Tablet 2 tab PO BID PRN PRN (Reason: Constipation) Qty: 0 0RF amoxicillin 500 mg capsule 500 mg PO Q12H hydrocodone-acetaminophen 5-325 mg tablet 1 tab PO Q6H PRN (Reason: Pain (Scale Score 6-10)) lidocaine 5 % adhesive patch,medicated 2 patch topical DAILY Protocol: *Topical Application Instructions APPLICATION INSTRUCTIONS: apply to affected areas of her upper back Rx Instructions: use for one week, then discontinue nystatin [Nyamyc] 100,000 unit/gram powder 1 applic topical BID Protocol: *Topical Application Instructions APPLICATION INSTRUCTIONS: To affected areas Ensure Compact Liquid 118 ml PO 4X/DAY menthol-zinc oxide [Calmoseptine] 0.44-20.6 % ointment 1 applic topical TID Protocol: *Topical Application Instructions APPLICATION INSTRUCTIONS: To affected areas. Referrals / Follow Up: Israel Bucio DO [Primary Care Provider] - 09/06/22 1:45 pm FriendHenrique DO [Med Staff - Active Staff] - (after d/c from TCU) Disposition Disposition (needs filled in before D/C Order can be placed): Home, Self Care
[2022-07-04] MEDS: Mirtazapine 15 MG Tablet PO (22:17)
[2022-07-05 05:41] LABS: Absolute Lymphocyte Count 7.75 X10^3/uL (0.83-4.51); Absolute Neutrophil Count 0.6 X10^3/uL (2.0-7.7); Basophil# 0.01 X10^3/uL; Basophil% 0.1 % (0-1); Eosinophil# 0.19 X10^3/uL; Eosinophils% 2.2 % (0-5); Hematocrit 25.6 % (37-47); Hemoglobin 7.9 g/dL (12.0-15.0); Lymphocyte # 7.75 X10^3/ul (0.83-4.51); Lymphocyte % 88.5 % (19-41); Mean Corp Hgb Conc 30.9 g/dL (32-36); Mean Corpuscular Hgb 36.2 pg (27.0-32.0); Mean Corpuscular Volume 117.4 fL (81-99); Mean Platelet Vol. 10.2 fl (6.2-12.0); Monocyte# 0.19 X10^3/uL; Monocyte% 2.2 % (0-10); NRBC Flagged by Analyzer 0 % (0-5); Neutrophil # 0.62 X10^3/uL (2.7-7.7); POSITIVE COUNT YES; POSITIVE DIFFERENTIAL YES; POSITIVE MORPHOLOGY YES; Platelet Count 57 K/mm3 (150-450); RBC Distribution Width CV 18.4 % (11.6-14.6); RBC Distribution Width SD 78.7 fl (35.1-43.9); Red Blood Count 2.18 M/mm3 (4.2-5.4); White Blood Count 8.8 K/mm3 (4.4-11.0)
[2022-07-05 05:55] LABS: Differential Indicated SCAN CRITERIA MET
[2022-07-05 05:58] LABS: Anion Gap 5 (5-15); BUN 50 mg/dL (7-18); BUN/Creat Ratio 22.4 RATIO (10-20); Calcium,Total 9.8 mg/dL (8.5-10.1); Chloride 112 mmol/L (98-107); Creatinine, Serum 2.23 mg/dL (0.55-1.02); EST Glomerular Filtration Rate 23 mL/min (>60); Est Glom Filt Rate - Afr Amer 27 mL/min (>60); Estimated Creatinine Clearance 19.89 ml/min; Glucose 112 mg/dL (74-106); Potassium 4.6 mmol/L (3.5-5.1); Sodium Level 145 mmol/L (136-145)
[2022-07-05 06:07] LABS: Anisocytosis 2+; Macrocytosis 3+; Platelet Estimate MOD DEC (ADEQ)
[2022-07-05] MEDS: Ondansetron ODT 4 MG Tablet 8 MG PO (06:17)
[2022-07-05] MEDS: Furosemide 40 MG Tablet PO (06:17)
[2022-07-05] MEDS: NYSTATIN 500,000 UNIT/5 ML UDC 500000 UNIT PO (06:17)
[2022-07-05] MEDS: Menthol/Lanolin/Calamine/Znox 113 GM Tube 1 APPLIC TOPICAL (06:20)
[2022-07-05] MEDS: Nystatin Powder 15gm Bottle 1 APPLIC TOPICAL (06:20)
[2022-07-05] MEDS: Calcitriol 0.25 MCG Capsule PO (07:59)
[2022-07-05] MEDS: Allopurinol 100 MG Tablet PO (07:59)
[2022-07-05] MEDS: Cholecalciferol (VIT D3) 25 MCG TABLET (1,000 UNITS) PO (07:59)
[2022-07-05] MEDS: Atenolol 50 MG Tablet PO (07:59)
[2022-07-05] MEDS: Pantoprazole Sodium 40 MG Tablet PO (07:59)
[2022-07-05] MEDS: Senna/Docusate Sodium 1 Tablet 2 TABLET PO (08:00)
[2022-07-05] MEDS: Multivitamins,Therapeutic Tablet 1 TABLET PO (08:00)
[2022-07-05] MEDS: Magnesium Chloride 64 MG Delay Rel.Tablet 128 MG PO (08:00)
[2022-07-05 09:37] VITALS: PULSE 59; RESP 14; O2SAT 96
[2022-07-05 10:01] VITALS: BP 131/63; PULSE 59; RESP 14; TEMP 36.7; O2SAT 96
--- NOTE | 2022-07-05 11:01 | CASEMGMT ---
Social Work BIMS and PHQ-9 completed for MDS assessment. Eunice Briones, SYSTEM DISPATCHER CONTRACTING EXECUTIVE
== END 2022-07-05 10:35 | disposition home or self-care (01) | DRG 689 ==
PROVIDERS: Nurse Practitioner Gerontology; Admitting Provider Family Medicine Geriatric Medicine; PCP Family Medicine; Visit Provider Family Medicine Geriatric Medicine
DX: N39.0 Urinary tract infection, site not specified (principal); K31.811 Angiodysplasia of stomach and duodenum with bleeding; N17.9 Acute kidney failure, unspecified; C91.10 Chronic lymphocytic leukemia of B-cell type not having achieved remission; N18.4 Chronic kidney disease, stage 4 (severe); B35.4 Tinea corporis; B95.2 Enterococcus as the cause of diseases classified elsewhere; I48.91 Unspecified atrial fibrillation; E21.3 Hyperparathyroidism, unspecified; E55.9 Vitamin D deficiency, unspecified; I12.9 Hypertensive chronic kidney disease with stage 1 through stage 4 chronic kidney disease, or unspecified chronic kidney disease; M10.9 Gout, unspecified; F41.9 Anxiety disorder, unspecified; K21.9 Gastro-esophageal reflux disease without esophagitis; Z86.16 Personal history of COVID-19; Z95.0 Presence of cardiac pacemaker; Z79.899 Other long term (current) drug therapy; F32.A Depression, unspecified
CPT/HCPCS: 36415; 74018; 74230; 80048; 83880; 85025; 87426; 87811; 92526; 92610; 92611; 97110; 97116; 97162; 97166; 97530; 97535

== ENCOUNTER 2022-08-20 12:14 | Emergency (ER) | payer MEDICARE, OTHER, SELFPAY ==
[2022-08-20 12:15] VITALS: BP 143/82; PULSE 63; RESP 18; TEMP 36.4; O2SAT 98; BMI 28.2
--- NOTE | 2022-08-20 13:09 | EKG12_ITS ---
Test Reason : Blood Pressure : / mmHG Vent. Rate : 060 BPM Atrial Rate : 061 BPM P-R Int : 000 ms QRS Dur : 202 ms QT Int : 572 ms P-R-T Axes : 050 -72 082 degrees QTc Int : 572 ms Ventricular-paced rhythm Abnormal ECG Confirmed by JOSEPH CHAN, RAJ ([id number]), manager editorial MONICA CRYSTAL ([id number]) on 08/22/2022 10:34:06 AM Referred By: Confirmed By:RAJ RUIZ MD
--- NOTE | 2022-08-20 13:12 | EDS_ITS ---
HPI HPI - GI History of Present Illness Chief Complaint: Abd Pain Detail of Chief Complaint: Abdominal bloating and fever Informant: patient Narrative Narrative: Patient presents to the emergency department with complaint of abdominal bloating and discomfort for weeks. Patient noticed a low-grade temperature this morning. Patient spent about 3 weeks in the hospital with urosepsis over a month ago and she became concerned that she may have a UTI. Patient has had decreased urine output and the urine is more yellow in color. Patient denies dysuria, urgency, or frequency. Patient states that with her last UTI she did not have symptoms. Patient also describes difficulty swallowing at times more than a couple of bites of food at a time and then she feels like she has to stop and let things pass. Last bowel movement was today. She denies blood in her stool or black tarry stool. She denies chest pain but does describe exertional dyspnea that is been relatively chronic. [facility] Medical History OJ (acute kidney injury) CLL (chronic lymphocytic leukemia) COVID-19 (10/13/20) Encephalopathy acute Enterococcal bacteremia Febrile illness, acute Fever Kidney disease Nausea Pacemaker Proteinuria Renal insufficiency Shingles (herpes zoster) polyneuropathy Sick sinus syndrome Home Medications multivitamin with folic acid 400 mcg tablet 1 tab PO DAILY supplement 07/18/14 [History Last Taken 06/30/20] acetaminophen 325 mg tablet 650 mg PO Q6H PRN PRN Pain Score 1-10/Temp > 100.7 F 07/19/20 [Rx Last Taken Unknown] apixaban 2.5 mg tablet (Eliquis) 2.5 mg PO BID 07/15/22 [History Last Taken Unknown] [id number]-rjjpoxksicuwn-[id number] 250 mg-250 mg-65 mg tablet (Excedrin Extra Strength) 1 tab PO ONCE 07/15/22 [History Last Taken Unknown] coenzyme Q10 50 mg capsule (Co Q-10) 60 mg PO DAILY 07/15/22 [History Last Taken Unknown] echinacea-nelson seal 350 mg-100 mg capsule cap PO 07/15/22 [History Last Taken Unknown] ferrous sulfate 143 mg PO DAILY 07/15/22 [History Last Taken Unknown] furosemide 80 mg tablet 80 mg PO BID 07/15/22 [History Last Taken Unknown] potassium chloride 20 mEq tablet,extended release 20 meq PO DAILY 07/15/22 [History Last Taken Unknown] sulfamethoxazole 400 mg-trimethoprim 80 mg tablet (Bactrim) 1 tab PO BID 07/15/22 [History Last Taken Unknown] metolazone 5 mg tablet 5 mg PO .COMPLEX 08/02/22 [History Last Taken Unknown] metoprolol succinate 50 mg tablet,extended release 24 hr 50 mg PO DAILY #30 tabs 08/05/22 [Rx Last Taken Unknown] hydroxyzine HCl 25 mg tablet 25 mg PO QHS PRN anxiety #20 tabs 08/08/22 [Rx Last Taken Unknown] Allergy/AdvReac Type Severity Reaction Status Date / Time losartan AdvReac Severe Severe Verified 08/20/22 12:18 nausea, GI upset, anorexia erythromycin base AdvReac Intermediate Unknown Verified 08/20/22 12:18 [Erythromycin Base] Penicillins AdvReac Mild Rash Verified 08/20/22 12:18 Family History Mother Hypertension Heart disease Father Diabetes Myocardial infarction Brother Parkinson disease Diabetes Surgical History History of cardioversion (03/02/19) History of cholecystectomy History of hysterectomy History of parathyroid surgery Presence of permanent cardiac pacemaker (~07/06/20) Social History household members: family current occupational status: retired current occupation: [employer] sexually active: No Smoking Status: Never smoker Electronic Cigarette Use: not used alcohol intake: never substance use type: does not use caffeine: No what type of physical activity do you participate in: none seatbelt use: always do you feel safe at home: Yes ROS ROS ED Review of Systems ROS Unobtainable: other Constitutional Constitutional ED: Reports lethargy; Denies chills, fever(s), sweats or weight loss Eyes Eyes: Denies blurry vision, change in vision or diplopia ENT ENT ED: Denies rhinorrhea or sore throat Cardiovascular Cardiovascular: Denies chest pain, orthopnea or racing heartbeat Respiratory/Chest Respiratory/Chest: Reports dyspnea on exertion; Denies cough, dyspnea, orthopnea or sputum Gastrointestinal Gastrointestinal: Reports abdominal pain and nausea; Denies diarrhea or vomiting Genitourinary Genitourinary ED: Denies dysuria, hematuria or urinary frequency Musculoskeletal Musculoskeletal: Denies arthralgias, back pain, myalgias or neck pain Integumentary Denies abscess, Abrasions or rash Neurologic Neurologic: Denies headache(s) or weakness Psychiatric Psychiatric: Denies anxiety, depression or suicidal thoughts Endocrine Endocrinology: Denies polydipsia, polyphagia or polyuria Hematologic/Lymphatic Hematologic/Lymphatic: Denies easy bleeding, easy bruising or lymphadenopathy Allergic/Immunologic Allergic/Immunologic ED: Denies mouth swelling, tongue swelling or urticaria EXAM Physical Exam Const Vital Signs: 08/20/22 12:15 Temperature 97.6 F L Temperature Source Temporal Pulse Rate 63 Respiratory Rate 18 Blood Pressure 143/82 H Blood Pressure Mean 102 Pulse Ox 98 Oxygen Delivery Method Room Air Positive well nourished and well developed General Appearance ED: well developed and NAD HEENT Reports TM's clear and moist mucous membranes normocephalic and atraumatic; Negative for trauma or tenderness Tympanic Membrane ED: Yes TM's clear Eyes PERRL and EOMs intact bilaterally General Eye ED: Negative for pale conjunctiva or scleral icterus Neck no lymphadenopathy, supple and no JVD General: Negative for tenderness Chest Wall inspection of chest normal and palpation of chest normal Chest: Negative for tenderness Resp normal respiratory effort and clear to auscultation bilaterally Effort and Inspection: Negative for respiratory distress or pain with movement Auscultation: Negative for rhonchi, wheezes or diminished lung sounds Cardio regular rate, regular rhythm, S1 normal heart sound, S2 normal heart sound and no murmurs Peripheral Pulses: pulses 2+ throughout GI normal to inspection, nondistended, normoactive bowel sounds, soft to palpation, non-distended and no masses Back/Spine no CVA tenderness and no thoracic nor lumbar tenderness Extremity normal to inspection General Extremety ED: Negative for edema General Extremity: Negative for edema Neuro oriented x3, CN's II-XII intact bilaterally, no sensory deficits noted and gait normal Sensorium / Orientation: awake, alert, oriented to person, oriented to place and oriented to time Motor Exam: strength 5/5 throughout and strength abnormal Psych mental status grossly normal Skin no rashes or lesions noted and no wounds MDM MDM MDM Narrative Medical decision making narrative: IV line established on arrival. Patient given Zofran IV. Patient did have a low potassium of 2.9 for which I did order 40 mill equivalents of potassium chloride p.o. Patient does take daily Lasix 80 mg twice per day and does take potassium at home. Patient CT scan of abdomen essentially unremarkable. Urinalysis showed 25-50 RBCs but no evidence of infection. Urine culture was sent. At this point etiology of her abdominal discomfort unclear. Patient advised to follow-up with her overlock collar setter whom she has an appointment to see in about 2 weeks. Patient had recent EGD within the last month and apparently did have some varices and per daughter they dilated her lower esophageal sphincter. Patient advised return if worsening pain, fever, vomiting, or condition should worsen anyway. Patient states that she has not been losing weight. Lab Data Attestation: I reviewed the patient's lab results. Labs: Laboratory Results - last 24 hr 08/20/22 08/20/22 08/20/22 12:24 13:30 13:30 WBC 10.1 RBC 2.78 L Hgb 9.8 L Hct 30.2 L MCV 108.6 H MCH 35.3 H MCHC 32.5 RDW Std Deviation 59.1 H RDW Coeff of Jose 14.8 H Plt Count 57 L MPV 10.3 Immature Gran % (Auto) 0.100 Neut % (Auto) 21.0 L Lymph % (Auto) 75.9 H Baxter % (Auto) 2.0 Eos % (Auto) 0.8 Baso % (Auto) 0.2 Absolute Neuts (auto) 2.1 Absolute Lymphs (auto) 7.65 H Nucleated RBC % 0 Platelet Estimate MOD DEC Hypochromasia 1+ Poikilocytosis 1+ Anisocytosis 1+ Macrocytosis 1+ Ovalocytes 1+ Sodium 145 Potassium 2.9 L Chloride 107 Carbon Dioxide 32.0 Anion Gap 6 BUN 89 H Creatinine 2.25 H Estim Creat Clear Calc 19.72 Est GFR (MDRD) Af Amer 27 L Est GFR (MDRD) Non-Af 22 L BUN/Creatinine Ratio 39.6 H Glucose 110 H Lactic Acid Calcium 9.4 Total Bilirubin 1.30 H AST 22 ALT 22 Alkaline Phosphatase 62 Troponin I High Sens 40 Total Protein 5.7 L Albumin 3.2 Globulin 2.5 Albumin/Globulin Ratio 1.3 Lipase 123 Urine Color Julieta Urine Clarity Sl. Cloudy Urine pH 6.0 Ur Specific [place] 1.015 Urine Protein 500 H Urine Glucose (UA) Normal Urine Ketones Negative Urine Occult Blood 250 H Urine Nitrite Negative Urine Bilirubin Negative Urine Urobilinogen Normal Ur Leukocyte Esterase 25 H Urine RBC 25-50 SEEN Urine WBC 0-5 SEEN Ur Squamous Epith Cells 0-5 SEEN Urine Bacteria 1+ Urine Mucus 0 SEEN 08/20/22 13:30 WBC RBC Hgb Hct MCV MCH MCHC RDW Std Deviation RDW Coeff of Jose Plt Count MPV Immature Gran % (Auto) Neut % (Auto) Lymph % (Auto) Baxter % (Auto) Eos % (Auto) Baso % (Auto) Absolute Neuts (auto) Absolute Lymphs (auto) Nucleated RBC % Platelet Estimate Hypochromasia Poikilocytosis Anisocytosis Macrocytosis Ovalocytes Sodium Potassium Chloride Carbon Dioxide Anion Gap BUN Creatinine Estim Creat Clear Calc Est GFR (MDRD) Af Amer Est GFR (MDRD) Non-Af BUN/Creatinine Ratio Glucose Lactic Acid 1.2 Calcium Total Bilirubin AST ALT Alkaline Phosphatase Troponin I High Sens Total Protein Albumin Globulin Albumin/Globulin Ratio Lipase Urine Color Urine Clarity Urine pH Ur Specific [place] Urine Protein Urine Glucose (UA) Urine Ketones Urine Occult Blood Urine Nitrite Urine Bilirubin Urine Urobilinogen Ur Leukocyte Esterase Urine RBC Urine WBC Ur Squamous Epith Cells Urine Bacteria Urine Mucus Radiography Diagnostic Testing: Clinical Impression(s) from Imaging Studies Abdomen/Pelvis CT 08/20/22 13:55 IMPRESSION: 1. Prominent, stable cardiomegaly. 2. Small but increased size bilateral pleural effusions. 3. Small volume ascites. 4. Diverticulosis coli. 5. Small left kidney. Electronically Signed: Obie Morton MD at 14:28 EDT , EKG Initial EKG: Attestation: I personally reviewed and interpreted this EKG as follows: Comments: Ventricularly paced rhythm with a rate of 60 bpm Discharge Plan Triage Chief Complaint: Abd Pain ED Provider: Al Saul Dx/Rx/DC Orders Clinical Impression: Abdominal pain, Dysphagia Instructions: ED Abdominal Pain Unkn Cause Fem, ED Dysphagia (Adult) Prescriptions: No Action sulfamethoxazole-trimethoprim [Bactrim] 400-80 mg tablet 1 tab PO BID coenzyme Q10 [Co Q-10] 50 mg capsule 60 mg PO DAILY furosemide 80 mg tablet 80 mg PO BID Excedrin Extra Strength 250-250-65 mg tablet 1 tab PO ONCE echinacea-nelson seal 350-100 mg capsule PO ferrous sulfate 47.5 mg iron tablet extended release 143 mg PO DAILY Eliquis 2.5 mg tablet 2.5 mg PO BID potassium chloride 20 mEq tablet extended release 20 meq PO DAILY multivitamin with folic acid 1 TABLET tablet 1 tab PO DAILY acetaminophen 325 MG tablet 650 mg PO Q6H PRN PRN (Reason: Pain Score 1-10/Temp > 100.7 F) 0RF metolazone 5 mg tablet 5 mg PO .COMPLEX Rx Instructions: 5 mg orally daily prn weight gain of 4 lbs or greater; metoprolol succinate 50 mg tablet extended release 24 hr 50 mg PO DAILY Qty: 30 4RF hydroxyzine HCl 25 mg tablet 25 mg PO QHS PRN (Reason: anxiety) Qty: 20 0RF Primary Care Provider: Maritza Oneill Referrals: Maritza Oneill MD [Primary Care Provider] - 3-5 Days Friend,DO Henrique [Med Staff - Active Staff] - Keep [facility] appointment Disposition Disposition: Home, Self Care
[2022-08-20] MEDS: 0.9% Normal Saline 1,000 ML 125 ML IV (13:32)
[2022-08-20] MEDS: Ondansetron 4 MG/2 ML Vial IV (13:44)
[2022-08-20 13:45] LABS: Mucous, Urine 0 SEEN /hpf (<or=2+)
[2022-08-20 13:50] LABS: Color, Urine Amber (Yellow); Glucose, Dipstick Normal (Normal); Ketone-Dipstick Negative (Negative); Leukocyte Esterase-Dipstick 25 /ul (Negative); Nitrite-Dipstick Negative (Negative); Occult Blood-Urine 250 /ul (Negative); Protein-Dipstick 500 mg/dl (Negative); Specific Gravity, Urine 1.015 (1.002-1.030); Urine Bilirubin Dipstick Negative (Negative); Urine Clarity Sl. Cloudy (Clear); Urine Urobilinogen Normal (Normal)
[2022-08-20 13:55] LABS: Absolute Lymphocyte Count 7.65 X10^3/uL (0.83-4.51); Absolute Neutrophil Count 2.1 X10^3/uL (2.0-7.7); Basophil# 0.02 X10^3/uL; Basophil% 0.2 % (0-1); Eosinophil# 0.08 X10^3/uL; Eosinophils% 0.8 % (0-5); Hematocrit 30.2 % (37-47); Hemoglobin 9.8 g/dL (12.0-15.0); Lymphocyte # 7.65 X10^3/ul (0.83-4.51); Lymphocyte % 75.9 % (19-41); Mean Corp Hgb Conc 32.5 g/dL (32-36); Mean Corpuscular Hgb 35.3 pg (27.0-32.0); Mean Corpuscular Volume 108.6 fL (81-99); Mean Platelet Vol. 10.3 fl (6.2-12.0); NRBC Flagged by Analyzer 0 % (0-5); Neutrophil # 2.12 X10^3/uL (2.7-7.7); POSITIVE COUNT YES; POSITIVE DIFFERENTIAL YES; POSITIVE MORPHOLOGY YES; Platelet Count 57 K/mm3 (150-450); RBC Distribution Width CV 14.8 % (11.6-14.6); RBC Distribution Width SD 59.1 fl (35.1-43.9); Red Blood Count 2.78 M/mm3 (4.2-5.4); White Blood Count 10.1 K/mm3 (4.4-11.0)
--- NOTE | 2022-08-20 13:55 | CT_ITS ---
EXAM: CT ABDOMEN AND PELVIS WITHOUT INTRAVENOUS CONTRAST CLINICAL INDICATION: abdominal pain TECHNIQUE: Helically acquired images were obtained of the abdomen and pelvis without intravenous contrast. This CT exam was performed using one or more of the following dose reduction techniques: automated exposure control, adjustment of the mA and/or kV according to patient size, and/or use of iterative reconstruction technique. This report was created using [employer] report generation technology. COMPARISON: CT Abdomen Pelvis dated 06/19/2022 FINDINGS: LOWER THORAX: Stable cardiomegaly. Small bilateral pleural effusions have increased in size. ABDOMEN: LIVER: Normal. Homogeneous. GALLBLADDER AND BILE DUCTS: Gallbladder is absent. No intra- or extrahepatic biliary ductal dilation. PANCREAS: Normal. No focal cystic mass. SPLEEN: Normal. Normal size without focal cystic or solid mass. ADRENALS: Normal. No nodules. KIDNEYS AND URETERS: Small left kidney again seen. Stable low density right renal lesions consistent with cysts. STOMACH AND BOWEL: Diverticulosis of the colon noted without evidence of acute diverticulitis. PELVIS: APPENDIX: No evidence of acute appendicitis. BLADDER: Normal. REPRODUCTIVE: Uterus is absent. ABDOMEN and PELVIS: INTRAPERITONEAL SPACE: Small volume ascites. No free air. BONES/JOINTS: Advanced arthritic changes of both hips worse on the left than right. No suspicious lytic or blastic abnormality. SOFT TISSUES: Normal. No discrete abdominal or pelvic wall hernia. VASCULATURE: Normal. Abdominal aorta is non-dilated. LYMPH NODES: Normal. No enlarged lymph nodes. CT/Abdomen/Pelvis without Cont IMPRESSION: 1. Prominent, stable cardiomegaly. 2. Small but increased size bilateral pleural effusions. 3. Small volume ascites. 4. Diverticulosis coli. 5. Small left kidney. Electronically Signed: Obie Morton MD at 14:28 EDT ,
[2022-08-20 13:56] LABS: Red Blood Cells-Urine 25-50 SEEN /hpf (0-5); Squamous Epithelial Cells - UA 0-5 SEEN /hpf (5-10); White Blood Cells 0-5 SEEN /hpf (0-5)
[2022-08-20 13:57] LABS: Differential Indicated SCAN CRITERIA MET
[2022-08-20 13:57] LABS: Bacteria 1+ /hpf (None Seen)
[2022-08-20 14:08] LABS: ALB/GLOB Ratio 1.3 RATIO (0.9-2.4); AST(SGOT) 22 U/L (15-37); Alanine Aminotransfer ALT/SGPT 22 U/L (13-56); Albumin, Serum 3.2 g/dL (3.2-5.0); Alkaline Phosphatase 62 U/L (45-117); Anion Gap 6 (5-15); BUN 89 mg/dL (7-18); BUN/Creat Ratio 39.6 RATIO (10-20); Calcium,Total 9.4 mg/dL (8.5-10.1); Chloride 107 mmol/L (98-107); Creatinine, Serum 2.25 mg/dL (0.55-1.02); EST Glomerular Filtration Rate 22 mL/min (>60); Est Glom Filt Rate - Afr Amer 27 mL/min (>60); Estimated Creatinine Clearance 19.72 ml/min; Globulin 2.5 g/dL (2.2-4.2); Glucose 110 mg/dL (74-106); Lipase 123 U/L (73-393); Potassium 2.9 mmol/L (3.5-5.1); Protein, Total 5.7 g/dL (6.4-8.2); Sodium Level 145 mmol/L (136-145); Troponin-I HS 40 pg/mL (3.0-54.0)
[2022-08-20 14:16] LABS: Lactic Acid 1.2 mmol/L (0.4-1.9)
[2022-08-20 14:27] LABS: Anisocytosis 1+; Hypochromasia 1+; Macrocytosis 1+; Ovalocyte 1+; Platelet Estimate MOD DEC (ADEQ); Poikilocytosis 1+
[2022-08-20 15:23] VITALS: BP 142/72; PULSE 59; RESP 16; O2SAT 98
--- NOTE | 2022-08-20 15:27 | ED.RN ---
pt refused oral potassium. states i'll take 2 when i get home. polo renee rn [id number]
== END 2022-08-20 15:28 | disposition home or self-care (01) ==
PROVIDERS: Emergency Provider Emergency Medicine; PCP Internal Medicine; Visit Provider Emergency Medicine
DX: R10.9 Unspecified abdominal pain (principal); R13.10 Dysphagia, unspecified; Z86.16 Personal history of COVID-19; Z95.0 Presence of cardiac pacemaker
CPT/HCPCS: 74176; 80053; 81001; 83605; 83690; 84484; 85025; 87040; 87086; 87088; 93005; 96374; 99283; J7030; A4216; J2405

== ENCOUNTER → 2022-08-27 | Outpatient (CLI) | payer MEDICARE, OTHER, SELFPAY ==
[2022-08-27 16:44] LABS: Absolute Lymphocyte Count 12.23 X10^3/uL (0.83-4.51); Basophil# 0.03 X10^3/uL; Basophil% 0.2 % (0-1); Eosinophil# 0.13 X10^3/uL; Eosinophils% 0.9 % (0-5); Hematocrit 31.1 % (37-47); Lymphocyte # 12.23 X10^3/ul (0.83-4.51); Lymphocyte % 83.1 % (19-41); Mean Corp Hgb Conc 32.2 g/dL (32-36); Mean Corpuscular Hgb 35.5 pg (27.0-32.0); Mean Corpuscular Volume 110.3 fL (81-99); Mean Platelet Vol. 10.7 fl (6.2-12.0); Monocyte# 0.27 X10^3/uL; Monocyte% 1.8 % (0-10); NRBC Flagged by Analyzer 0 % (0-5); Neutrophil # 2.03 X10^3/uL (2.7-7.7); Neutrophil % 13.9 % (47-70); POSITIVE COUNT YES; POSITIVE DIFFERENTIAL YES; Platelet Count 70 K/mm3 (150-450); RBC Distribution Width SD 61.1 fl (35.1-43.9); Red Blood Count 2.82 M/mm3 (4.2-5.4); White Blood Count 14.7 K/mm3 (4.4-11.0)
[2022-08-27 17:02] LABS: Anion Gap 5 (5-15); BUN 78 mg/dL (7-18); BUN/Creat Ratio 28.3 RATIO (10-20); Calcium,Total 9.6 mg/dL (8.5-10.1); Chloride 107 mmol/L (98-107); Creatinine, Serum 2.76 mg/dL (0.55-1.02); EST Glomerular Filtration Rate 18 mL/min (>60); Est Glom Filt Rate - Afr Amer 21 mL/min (>60); Glucose 109 mg/dL (74-106); Potassium 4.6 mmol/L (3.5-5.1); Sodium Level 142 mmol/L (136-145); Thyroid Stim Hormone (TSH) 4.33 uIU/mL (0.358-3.74)
[2022-08-27 17:27] LABS: Differential Indicated SCAN CRITERIA MET
[2022-08-27 17:30] LABS: Anisocytosis 1+; Macrocytosis 2+; Platelet Estimate MOD DEC (ADEQ); Red Cell Morphology N CHROM NORMAL (NORM C&C)
[2022-08-29 09:59] LABS: Pathologist Review Reviewed
[2022-08-31 14:55] LABS: Acetylcholine Receptor Binding < 0.03 nmol/L (0.00-0.24)
== END | disposition home or self-care (01) ==
LOC: BIMLAB 15:05
PROVIDERS: PCP Internal Medicine; Visit Provider Nurse Practitioner Family
DX: R13.10 Dysphagia, unspecified (principal); C91.10 Chronic lymphocytic leukemia of B-cell type not having achieved remission; N18.4 Chronic kidney disease, stage 4 (severe); I48.0 Paroxysmal atrial fibrillation
CPT/HCPCS: 36415; 80048; 84238; 84443; 85025

== ENCOUNTER → 2022-10-03 | Outpatient (CLI) | payer MEDICARE, OTHER, SELFPAY ==
--- NOTE | 2022-10-03 07:24 | US_ITS ---
STUDY: ABDOMINAL ULTRASOUND - ELASTOGRAPHY REASON FOR VISIT: Female, 77 years old. PERKINS TECHNIQUE: Liver stiffness measurements were obtained on a [employer] RS 85 ultrasound machine using a CA 1-7 probe following the SRU guidelines. 3 measurements were obtained using a 2-D-SWE method. TheIQR/M was 17% suggesting a quality data set. TECHNICAL QUALITY: Adequate. COMPARISON: Comparison is made with prior study done earlier today. FINDINGS: Liver: Heterogeneous appearance of the liver echotexture. Median liver stiffness measured 19 kPa. US/Elastography Parenchyma/Organ IMPRESSION: Liver stiffness measures 19 kPa compatible with F3-F4 (Moderate to severe liver fibrosis) Metavir score. Electronically Signed: Ramakrishna Cummins MD at 8:31 EST ,
--- NOTE | 2022-10-03 07:24 | US_ITS ---
STUDY: ABDOMINAL ULTRASOUND - RIGHT UPPER QUADRANT REASON FOR VISIT: Female, 77 years old PERKINS TECHNIQUE: Ultrasound evaluation of the right upper quadrant was performed with real-time and static graham-scale imaging. TECHNICAL QUALITY: Adequate. COMPARISON: Comparison is made with prior examination of 01/19/2019. FINDINGS: Liver: The liver measures 15.6 cm. There is a heterogeneous echogenicity of the liver. The bile ducts are within normal limits. There is hepatic color flow. The direction of portal flow is hepatopetal. There is no demonstrated mass lesion. Gallbladder: The patient is status post cholecystectomy. Common Bile Duct (C.B.D.): The common bile duct measures 5.0 mm. Pancreas: Normal size of the head, body of the pancreas. The tail portion is obscured due to overlying bowel gas. There is normal echogenicity of the pancreas. There is no demonstrated pancreatic mass or cyst. Right Kidney: Normal size of the right kidney. The right kidney measures 11.7 cm x 6.6 cm x 4.2 cm. Normal renal cortex. The right cortex measures 1.8 cm. There is a 3.3 cm x 2.9 cm x 2.5 cm renal cyst. This also evidence of a 4 mm x 7 mm x 4 mm nonobstructive right intrarenal calculus. There is no right hydronephrosis. US/Abdomen Limited IMPRESSION: Heterogeneous echotexture of the liver. Right renal cyst. Nonobstructive right intrarenal calculus. Electronically Signed: Ramakrishna Cummins MD at 8:30 EST ,
== END | disposition home or self-care (01) ==
LOC: US 07:23
PROVIDERS: PCP Internal Medicine; Visit Provider Internal Medicine Gastroenterology
DX: K75.81 Nonalcoholic steatohepatitis (NASH) (principal)
CPT/HCPCS: 76705; 76981

== ENCOUNTER → 2022-10-07 | Outpatient (CLI) | payer MEDICARE, OTHER, SELFPAY ==
[2022-10-07 16:19] LABS: Mucous, Urine 0 SEEN /hpf (<or=2+)
[2022-10-07 16:37] LABS: Color, Urine Yellow (Yellow); Glucose, Dipstick Normal (Normal); Ketone-Dipstick Negative (Negative); Leukocyte Esterase-Dipstick 25 /ul (Negative); Nitrite-Dipstick Negative (Negative); Occult Blood-Urine 250 /ul (Negative); Protein-Dipstick 500 mg/dl (Negative); Urine Bilirubin Dipstick Negative (Negative); Urine Clarity Clear (Clear); Urine Urobilinogen Normal (Normal); Urine pH 6.5 (5.0 - 8.0)
[2022-10-07 17:07] LABS: Bacteria 1+ /hpf (None Seen); Red Blood Cells-Urine 50-100 SEEN /hpf (0-5); Squamous Epithelial Cells - UA 0-5 SEEN /hpf (5-10); White Blood Cells 0-5 SEEN /hpf (0-5)
== END | disposition home or self-care (01) ==
LOC: LABSPEC 16:17
PROVIDERS: PCP Internal Medicine; Referring Provider Internal Medicine; Visit Provider Internal Medicine
DX: R30.0 Dysuria (principal)
CPT/HCPCS: 81001; 87086; 87088

== ENCOUNTER 2022-10-15 20:32 | Emergency (ER) | payer MEDICARE, OTHER, SELFPAY ==
[2022-10-15 20:33] VITALS: BP 140/79; PULSE 64; RESP 15; TEMP 36.3; O2SAT 100; BMI 27.6
--- NOTE | 2022-10-15 21:12 | EX.ED.DYSGE1 ---
HPI History of Present Illness Chief Complaint: Abn Labs Narrative Narrative: 77-year-old female presents with her sisters because of abnormal laboratory work. She takes a blood thinner, Eliquis for atrial fibrillation. She has past medical history of Eckert, esophageal varices and had bleeding in her stomach previously. She takes her blood thinner for atrial fibrillation. She was seeing her primary care provider today regarding a wound on her right lower extremity, and they performed laboratory work. They stated that her potassium was dangerously low. And told her to take 3 of her potassium supplementation tablets. Of note, she has history of congestive heart failure, and takes 80 mg of Lasix daily, but also used to take metolazone intermittently. Over the last week, she was told to take it more consistently, and although she is still supplementing with potassium, it may have depleted her potassium. She feels generally weak but denies any chest pain or shortness of breath. They state that her wound care physician was concerned about a GI bleed because she has an elevated BUN, but she does have a history of stage IIIb kidney disease if it has not advanced to stage IV. Essentially, she denies any hematemesis, no dark tarry stool or melena, no hematochezia. She denies any other bleeding diathesis. She presents because of the low potassium and elevated BUN. [facility] Medical History (Updated 10/15/22 @ 23:04 by Oh Salas MD) OJ (acute kidney injury) CLL (chronic lymphocytic leukemia) Congestive heart failure (CHF) COVID-19 (10/13/20) Encephalopathy acute Enterococcal bacteremia Esophageal varices Febrile illness, acute Fever Kidney disease ECKERT (nonalcoholic steatohepatitis) Nausea Pacemaker Proteinuria Renal insufficiency Shingles (herpes zoster) polyneuropathy Sick sinus syndrome due to SA node dysfunction Home Medications multivitamin with folic acid 400 mcg tablet 1 tab PO DAILY supplement 07/18/14 [History Last Taken 06/30/20] acetaminophen 325 mg tablet 650 mg PO Q6H PRN PRN Pain Score 1-10/Temp > 100.7 F 07/19/20 [Rx Last Taken Unknown] nrdennv-ttgdhygzmzkyx-xdmxntns 250 mg-250 mg-65 mg tablet (Excedrin Extra Strength) 1 tab PO ONCE 07/15/22 [History Last Taken Unknown] furosemide 80 mg tablet 80 mg PO BID 07/15/22 [History Last Taken Unknown] potassium chloride 20 mEq tablet,extended release 20 meq PO DAILY 07/15/22 [History Last Taken Unknown] metolazone 5 mg tablet 5 mg PO .COMPLEX 08/02/22 [History Last Taken Unknown] metoprolol succinate 50 mg tablet,extended release 24 hr 50 mg PO DAILY #30 tabs 08/05/22 [Rx Last Taken Unknown] ondansetron 4 mg disintegrating tablet 4 mg PO Q6H PRN nausea and vomiting #30 tabs 08/21/22 [Rx Last Taken Unknown] ferrous sulfate 143 mg PO DAILY 08/28/22 [History Last Taken Unknown] apixaban 2.5 mg tablet (Eliquis) 2.5 mg PO BID #180 tabs 09/04/22 [Rx Last Taken Unknown] pantoprazole 40 mg tablet,delayed release 40 mg PO DAILY #30 tabs 09/06/22 [Rx Last Taken Unknown] mupirocin 2 % topical ointment 1 applic topical BID #1 BOTTLE 09/24/22 [Rx Last Taken Unknown] ondansetron 4 mg disintegrating tablet 4 mg PO Q8H PRN nausea and vomiting #30 tabs 09/24/22 [Rx Last Taken Unknown] sertraline 50 mg tablet 50 mg PO QDAY #30 tabs 09/24/22 [Rx Last Taken Unknown] cefdinir 300 mg capsule 300 mg PO BID 10 days #20 caps 10/07/22 [Rx Last Taken Unknown] non-adherent bandage 3 X 4 (Telfa) #30 ea 10/07/22 [Rx Last Taken Unknown] non-adherent bandage 3 X 8 #30 ea 10/07/22 [Rx Last Taken Unknown] Allergy/AdvReac Type Severity Reaction Status Date / Time losartan AdvReac Severe Severe Verified 10/15/22 20:39 nausea, GI upset, anorexia erythromycin base AdvReac Intermediate Unknown Verified 10/15/22 20:39 [Erythromycin Base] Penicillins AdvReac Mild Rash Verified 10/15/22 20:39 Family History Mother Hypertension Heart disease Father Diabetes Myocardial infarction Brother Parkinson disease Diabetes Surgical History History of cardioversion (03/02/19) History of cholecystectomy History of hysterectomy History of parathyroid surgery Presence of permanent cardiac pacemaker (~07/06/20) Social History household members: family current occupational status: retired current occupation: [employer] sexually active: No Smoking Status: Never smoker Electronic Cigarette Use: not used alcohol intake: never substance use type: does not use caffeine: No what type of physical activity do you participate in: none seatbelt use: always do you feel safe at home: Yes ROS ROS ED ROS Narrative Constitutional: No fever, no chills. Positive generalized weakness. HEENT: No sore throat. No neck pain. No loss of vision. No rhinorrhea. Cardiovascular: No chest pain. No palpitations. No pedal edema. Respiratory: No cough, no shortness of breath. Abdominal: No abdominal pain. No nausea. No vomiting. No hematemesis. Normal colored stool. No melena or hematochezia. Genitourinary: No dysuria. No hematuria. Musculoskeletal: No myalgias. No arthralgias. Neurologic: No headaches. No dizziness. No lightheadedness. Skin: No rash. No change in color. Psychiatric: No depression. No anxiety. EXAM Physical Exam Narrative Exam Narrative: Afebrile. Vital signs noted. HEENT: Normocephalic. Atraumatic. PERRL, EOMI. Neck soft and supple. No point tenderness or step off. Moist mucous membranes. No cyanosis. Cardiovascular: Regular rate and rhythm. No murmurs, rubs, or gallops appreciated. Respiratory: No tachypnea. Lungs clear to auscultation bilaterally. Gastrointestinal: Abdomen soft, nontender, with normoactive bowel sounds. No rebound or guarding. Neurological: Awake. Alert. Nonfocal, nonlateralizing. Skin: No rash. Normal color. No pallor. Musculoskeletal: No pedal edema. Full range of motion extremities. Right lower leg/distal anterior tibial area wrapped in gauze/bandage. Const Vital Signs: 10/15/22 20:33 10/15/22 21:51 Temperature 97.3 F L Temperature Source Temporal Pulse Rate 64 Respiratory Rate 15 Respiratory Pattern Normal Blood Pressure 140/79 H Blood Pressure Mean 99 Pulse Ox 100 Oxygen Delivery Method Room Air MDM MDM MDM Narrative Medical decision making narrative: I reviewed her laboratory work from today. Potassium is 2.7. They did state that she took 3 tablets at home. I will repeat her laboratory work today. She had a stable hemoglobin of 9. While her BUN was elevated above 100. I repeated her CBC, she has a white count of 16.1, hemoglobin is improved from 9.9-10.0. Platelet count low at 67. However, she has a chronic thrombocytopenia and this appears to be around her baseline. Electrolyte panel shows potassium of 3.2 which is still hypokalemic but improved over 2.7 that it was earlier today. They state that she is to continue her supplementation with 2 tablets tomorrow then go back to 1 tablet a day. They have an appointment with her primary care provider on Friday, where labs will be rechecked. Regarding her BUN, it is elevated again at 101, but it seems she has a chronic elevation and it has slowly been getting higher and higher over time to where it was recently in the 70s and 80s on her last laboratory work. Creatinine is 2.52. I was going to administer bolus of normal saline, but given her history of CHF, she is very hesitant to receive any fluids because she and her family state that she has had 30 pound weight gain after hospitalization and IV fluids that has never come off. They state that Dr. Aleman's office had call them and were concerned about GI bleeding. Once again, she denies any sort of hematemesis or dark stool, no melena. She is refusing rectal examination. I will attempt to discuss the patient with Dr. Aleman, however regardless I feel she be discharged safely home to follow-up with her primary care provider. Return instructions to the emergency department were reviewed. Disposition is discharged home in stable condition. Lab Data Attestation: I reviewed the patient's lab results. Labs: Laboratory Results - last 24 hr 10/15/22 10/15/22 21:48 21:48 WBC 16.1 H RBC 3.01 L Hgb 10.0 L Hct 32.5 L MCV 108.0 H MCH 33.2 H MCHC 30.8 L RDW Std Deviation 65.9 H RDW Coeff of Jose 16.3 H Plt Count 67 L MPV 10.5 Immature Gran % (Auto) 0.100 Neut % (Auto) 7.9 L Lymph % (Auto) 89.4 H Mchenry % (Auto) 1.8 Eos % (Auto) 0.6 Baso % (Auto) 0.2 Absolute Neuts (auto) 1.3 L Absolute Lymphs (auto) 14.39 H Nucleated RBC % 0 Differential Comment SEE COMMENT Diff Path Review May foll Atypical Lymphocytes 1+ Reactive Lymphocytes 1+ Platelet Estimate MOD DEC RBC Morphology N CHROM Anisocytosis 2+ Macrocytosis 2+ Sodium 143 Potassium 3.2 L Chloride 100 Carbon Dioxide 35.0 H Anion Gap 8 BUN 101 H* Creatinine 2.52 H Estim Creat Clear Calc 17.60 Est GFR (MDRD) Af Amer 24 L Est GFR (MDRD) Non-Af 20 L BUN/Creatinine Ratio 40.1 H Glucose 126 H Calcium 9.3 Discharge Plan Triage Chief Complaint: Abn Labs ED Provider: Oh Salas Dx/Rx/DC Orders Clinical Impression: Hypokalemia, Elevated BUN Instructions: ED Hypokalemia Prescriptions: No Action ferrous sulfate 47.5 mg iron tablet extended release 143 mg PO DAILY pantoprazole 40 mg tablet,delayed release (DR/EC) 40 mg PO DAILY Qty: 30 1RF furosemide 80 mg tablet 80 mg PO BID Excedrin Extra Strength 250-250-65 mg tablet 1 tab PO ONCE potassium chloride 20 mEq tablet extended release 20 meq PO DAILY ondansetron 4 mg tablet,disintegrating 4 mg PO Q6H PRN (Reason: nausea and vomiting) Qty: 30 1RF mupirocin 2 % ointment 1 applic topical BID Qty: 1 0RF ondansetron 4 mg tablet,disintegrating 4 mg PO Q8H PRN (Reason: nausea and vomiting) Qty: 30 1RF sertraline 50 mg tablet 50 mg PO QDAY Qty: 30 5RF (DME) Telfa 3 X 4 bandage See Rx Instructions .Route Qty: 30 0RF Rx Instructions: As directed (DME) non-adherent bandage 3 X 8 bandage See Rx Instructions .Route Qty: 30 0RF Rx Instructions: As directed cefdinir 300 mg capsule 300 mg PO BID 10 Days Qty: 20 0RF multivitamin with folic acid 1 TABLET tablet 1 tab PO DAILY acetaminophen 325 MG tablet 650 mg PO Q6H PRN PRN (Reason: Pain Score 1-10/Temp > 100.7 F) 0RF metolazone 5 mg tablet 5 mg PO .COMPLEX Rx Instructions: 5 mg orally daily prn weight gain of 4 lbs or greater; metoprolol succinate 50 mg tablet extended release 24 hr 50 mg PO DAILY Qty: 30 4RF Eliquis 2.5 mg tablet 2.5 mg PO BID Qty: 180 4RF Primary Care Provider: Maritza Oneill Referrals: Maritza Oneill MD [Primary Care Provider] - Activity Restrictions/Additional Instructions: Take 2 more potassium supplementation pills tomorrow morning as you had been directed to do so by your primary care provider. Have your potassium rechecked by the end of the week. Follow-up with Dr. Aleman as needed. Disposition Disposition: Home, Self Care Discharge Date/Time: 10/15/22 23:25
[2022-10-15 21:58] LABS: Absolute Lymphocyte Count 14.39 X10^3/uL (0.83-4.51); Absolute Neutrophil Count 1.3 X10^3/uL (2.0-7.7); Basophil# 0.03 X10^3/uL; Basophil% 0.2 % (0-1); Eosinophil# 0.09 X10^3/uL; Eosinophils% 0.6 % (0-5); Hematocrit 32.5 % (37-47); Lymphocyte # 14.39 X10^3/ul (0.83-4.51); Lymphocyte % 89.4 % (19-41); Mean Corp Hgb Conc 30.8 g/dL (32-36); Mean Corpuscular Hgb 33.2 pg (27.0-32.0); Mean Platelet Vol. 10.5 fl (6.2-12.0); Monocyte# 0.29 X10^3/uL; Monocyte% 1.8 % (0-10); NRBC Flagged by Analyzer 0 % (0-5); Neutrophil # 1.29 X10^3/uL (2.7-7.7); Neutrophil % 7.9 % (47-70); POSITIVE COUNT YES; POSITIVE DIFFERENTIAL YES; POSITIVE MORPHOLOGY YES; Platelet Count 67 K/mm3 (150-450); RBC Distribution Width CV 16.3 % (11.6-14.6); RBC Distribution Width SD 65.9 fl (35.1-43.9); Red Blood Count 3.01 M/mm3 (4.2-5.4); White Blood Count 16.1 K/mm3 (4.4-11.0)
[2022-10-15 22:23] LABS: Anion Gap 8 (5-15); BUN 101 mg/dL (7-18); BUN/Creat Ratio 40.1 RATIO (10-20); Calcium,Total 9.3 mg/dL (8.5-10.1); Chloride 100 mmol/L (98-107); Creatinine, Serum 2.52 mg/dL (0.55-1.02); Differential Indicated SCAN CRITERIA MET; EST Glomerular Filtration Rate 20 mL/min (>60); Est Glom Filt Rate - Afr Amer 24 mL/min (>60); Glucose 126 mg/dL (74-106); Potassium 3.2 mmol/L (3.5-5.1); Sodium Level 143 mmol/L (136-145)
[2022-10-15 22:25] LABS: Anisocytosis 2+; Atypical Lymphocyte 1+ %; Macrocytosis 2+; Platelet Estimate MOD DEC (ADEQ); Reactive Lymphocyte 1+; Red Cell Morphology N CHROM NORMAL (NORM C&C)
[2022-10-16 15:26] LABS: Pathologist Review Reviewed
== END 2022-10-15 23:25 | disposition home or self-care (01) ==
PROVIDERS: Emergency Provider Emergency Medicine; PCP Internal Medicine; Visit Provider Emergency Medicine
DX: E87.6 Hypokalemia (principal); I50.9 Heart failure, unspecified; I48.91 Unspecified atrial fibrillation; R79.89 Other specified abnormal findings of blood chemistry; Z86.16 Personal history of COVID-19; Z95.0 Presence of cardiac pacemaker; Z79.01 Long term (current) use of anticoagulants; Z79.899 Other long term (current) drug therapy
CPT/HCPCS: 36415; 80048; 80053; 80074; 81001; 82105; 82140; 82164; 82390; 82525; 82728; 83010; 83036; 83516; 83540; 83550; 83615; 85025; 85045; 85610; 85652; 86140; 86225; 86235; 86256; 86703; 87086; 87088; 99282; J7030; A4216

== ENCOUNTER → 2022-10-15 | Outpatient (CLI) | payer MEDICARE, OTHER, SELFPAY ==
[2022-10-15 15:30] LABS: Bacteria 0 SEEN /hpf (None Seen); Mucous, Urine 0 SEEN /hpf (<or=2+)
[2022-10-15 16:54] LABS: Absolute Lymphocyte Count 16.54 X10^3/uL (0.83-4.51); Absolute Neutrophil Count 1.4 X10^3/uL (2.0-7.7); Basophil# 0.02 X10^3/uL; Basophil% 0.1 % (0-1); Eosinophil# 0.07 X10^3/uL; Eosinophils% 0.4 % (0-5); Hematocrit 32.3 % (37-47); Hemoglobin 9.9 g/dL (12.0-15.0); Lymphocyte # 16.54 X10^3/ul (0.83-4.51); Lymphocyte % 90.8 % (19-41); Mean Corp Hgb Conc 30.7 g/dL (32-36); Mean Corpuscular Volume 107.7 fL (81-99); Mean Platelet Vol. 10.6 fl (6.2-12.0); Monocyte% 1.1 % (0-10); NRBC Flagged by Analyzer 0.2 % (0-5); Neutrophil # 1.36 X10^3/uL (2.7-7.7); Neutrophil % 7.5 % (47-70); POSITIVE COUNT YES; POSITIVE DIFFERENTIAL YES; POSITIVE MORPHOLOGY YES; Platelet Count 71 K/mm3 (150-450); RBC Distribution Width CV 16.1 % (11.6-14.6); RBC Distribution Width SD 64.1 fl (35.1-43.9); White Blood Count 18.2 K/mm3 (4.4-11.0)
[2022-10-15 16:55] LABS: International Normalized Ratio 1.3; Prothrombin Time (Protime)PT. 15.9 SECONDS (11.7-14.9)
[2022-10-15 16:58] LABS: Differential Indicated SCAN CRITERIA MET
[2022-10-15 17:01] LABS: Immature Platelet Fraction 4.3 % (1.0-7.9); Platelet Count 69 K/mm3 (150-450); RET-HE 36.2 pg (30-35)
[2022-10-15 17:02] LABS: Color, Urine Yellow (Yellow); Glucose, Dipstick Normal (Normal); Ketone-Dipstick Negative (Negative); Leukocyte Esterase-Dipstick 25 /ul (Negative); Nitrite-Dipstick Negative (Negative); Occult Blood-Urine 250 /ul (Negative); Protein-Dipstick 500 mg/dl (Negative); Urine Bilirubin Dipstick Negative (Negative); Urine Clarity Sl. Cloudy (Clear); Urine Urobilinogen Normal (Normal); Urine pH 6.5 (5.0 - 8.0)
[2022-10-15 17:08] LABS: Hemoglobin A1c 5.2 % (3.8-5.6)
[2022-10-15 17:12] LABS: Ferritin 77 ng/mL (8-252); Iron 89 ug/dL (50-170); Iron Binding Capacity,Total 348 ug/dL (250-450); PERCENT IRON SATURATION 25.6 % (15.0-55.0)
[2022-10-15 17:16] LABS: ALB/GLOB Ratio 1.2 RATIO (0.9-2.4); AST(SGOT) 23 U/L (15-37); Alanine Aminotransfer ALT/SGPT 20 U/L (13-56); Albumin, Serum 3.1 g/dL (3.2-5.0); Alkaline Phosphatase 77 U/L (45-117); Anion Gap 8 (5-15); BUN 104 mg/dL (7-18); BUN/Creat Ratio 41.8 RATIO (10-20); CRP 3.63 mg/L (0.0-3.0); Calcium,Total 9.1 mg/dL (8.5-10.1); Chloride 99 mmol/L (98-107); Creatinine, Serum 2.49 mg/dL (0.55-1.02); EST Glomerular Filtration Rate 20 mL/min (>60); Est Glom Filt Rate - Afr Amer 24 mL/min (>60); Ferritin 77 ng/mL (8-252); Globulin 2.5 g/dL (2.2-4.2); Glucose 119 mg/dL (74-106); LDH 180 U/L (84-246); Potassium 2.7 mmol/L (3.5-5.1); Protein, Total 5.6 g/dL (6.4-8.2); Sodium Level 142 mmol/L (136-145)
[2022-10-15 17:39] LABS: Erythrocyte Sedimentation Rate 11 mm/hr (0-30)
[2022-10-15 18:25] LABS: Anisocytosis 1+; Macrocytosis 1+; Platelet Estimate MOD DEC (ADEQ); Reactive Lymphocyte 1+; Red Cell Morphology N CHROM NORMAL (NORM C&C)
[2022-10-15 19:14] LABS: Red Blood Cells-Urine 10-25 SEEN /hpf (0-5); White Blood Cells 0-5 SEEN /hpf (0-5)
[2022-10-15 19:15] LABS: Squamous Epithelial Cells - UA 0-5 SEEN /hpf (5-10)
[2022-10-15 20:36] LABS: HIV - WCH Non-Reactive (Nonreactive)
[2022-10-16 15:25] LABS: Pathologist Review Reviewed
[2022-10-17 13:07] LABS: Anti-Centromere B Ab <0.2 AI (0.0-0.9); Anti-Chromatin <0.2 AI (0.0-0.9); Anti-Jo <0.2 AI (0.0-0.9); Anti-Scleroderma-70 AB <0.2 AI (0.0-0.9); RNP Ab <0.2 AI (0.0-0.9); SJOGREN'S Anti-SS-A test < 0.2 AI (0.0-0.9); SJOGREN'S Anti-SS-B test < 0.2 AI (0.0-0.9); Smith Ab <0.2 AI (0.0-0.9)
[2022-10-17 17:11] LABS: Anti-Mitochondrial AB <20.0 Units (0.0-20.0); Anti-dsDNA Ab 1 IU/mL (0-9)
[2022-10-23 00:07] LABS: Angiotensin Convert Enzyme 51 U/L (14-82); Cytoplasmic Ab (C-ANCA) <1:20 titer (Neg:<1:20); HEPATITIS B SURFACE AG Negative (Negative); Hep C Antibodies <0.1 s/co ratio (0.0-0.9); Hepatitis A IgM Antibody Negative (Negative); Hepatitis B Core AB IgM Negative (Negative)
[2022-10-23 12:30] LABS: AFP, Tumor Marker 2.5 ng/mL (0.0-9.2); Anti-Smooth Muscle ABS 6 Units (0-19); Copper, Serum or Plasma 143 ug/dL (80-158); Haptoglobin 44 mg/dL (42-346)
== END | disposition home or self-care (01) ==
LOC: BIMLAB 15:02
PROVIDERS: Internal Medicine Medical Oncology; PCP Internal Medicine; Referring Provider Internal Medicine Gastroenterology; Visit Provider Internal Medicine Gastroenterology
DX: C91.10 Chronic lymphocytic leukemia of B-cell type not having achieved remission (principal); D64.9 Anemia, unspecified; R30.0 Dysuria; K75.81 Nonalcoholic steatohepatitis (NASH); Z79.01 Long term (current) use of anticoagulants
CPT/HCPCS: 36415; 80053; 80074; 81001; 82105; 82140; 82164; 82390; 82525; 82728; 83010; 83036; 83516; 83540; 83550; 83615; 85025; 85045; 85610; 85652; 86140; 86225; 86235; 86256; 86703; 87086

== ENCOUNTER → 2022-10-17 | Outpatient (CLI) | payer MEDICARE, OTHER, SELFPAY ==
[2022-10-17 17:09] LABS: Absolute Lymphocyte Count 18.52 X10^3/uL (0.83-4.51); Absolute Neutrophil Count 1.2 X10^3/uL (2.0-7.7); Basophil# 0.03 X10^3/uL; Basophil% 0.1 % (0-1); Eosinophil# 0.12 X10^3/uL; Eosinophils% 0.6 % (0-5); Hematocrit 33.7 % (37-47); Hemoglobin 10.8 g/dL (12.0-15.0); Lymphocyte # 18.52 X10^3/ul (0.83-4.51); Lymphocyte % 92.1 % (19-41); Mean Corpuscular Hgb 34.6 pg (27.0-32.0); Mean Platelet Vol. 10.8 fl (6.2-12.0); Monocyte# 0.24 X10^3/uL; Monocyte% 1.2 % (0-10); NRBC Flagged by Analyzer 0 % (0-5); Neutrophil # 1.18 X10^3/uL (2.7-7.7); POSITIVE COUNT YES; POSITIVE DIFFERENTIAL YES; Platelet Count 78 K/mm3 (150-450); RBC Distribution Width CV 16.3 % (11.6-14.6); Red Blood Count 3.12 M/mm3 (4.2-5.4); White Blood Count 20.1 K/mm3 (4.4-11.0)
[2022-10-17 17:16] LABS: Differential Indicated SCAN CRITERIA MET
[2022-10-17 17:17] LABS: Anion Gap 9 (5-15); BUN/Creat Ratio 40.7 RATIO (10-20); Calcium,Total 9.4 mg/dL (8.5-10.1); Chloride 101 mmol/L (98-107); Creatinine, Serum 2.58 mg/dL (0.55-1.02); EST Glomerular Filtration Rate 19 mL/min (>60); Est Glom Filt Rate - Afr Amer 23 mL/min (>60); Glucose 116 mg/dL (74-106); Potassium 3.2 mmol/L (3.5-5.1); Sodium Level 142 mmol/L (136-145)
[2022-10-17 17:40] LABS: Differential Comment SCANNED
[2022-10-17 17:43] LABS: BUN 105 mg/dL (7-18)
== END | disposition home or self-care (01) ==
LOC: BIMLAB 14:51
PROVIDERS: PCP Internal Medicine; Referring Provider Internal Medicine; Visit Provider Internal Medicine
DX: I50.32 Chronic diastolic (congestive) heart failure (principal); E87.6 Hypokalemia
CPT/HCPCS: 36415; 80048; 85025

== ENCOUNTER → 2022-11-07 | Outpatient (CLI) | payer MEDICARE, OTHER, SELFPAY ==
--- NOTE | 2022-11-07 13:58 | ART_ITS ---
Reason For Study: Decreased pulses Procedure A bilateral lower extremity continuous wave Doppler with analog waveform analysis and ankle brachial indexes. Left Segmental Pressures Left brachial= 136mmHg. Left posterior tibial artery = >254mmHg. Left dorsalis pedis artery = 175mmHg. Left digit = 58 mmHg. The left posterior tibial artery waveforms are monophasic. The left dorsalis pedis waveforms are monophasic. Right Segmental Pressures Right brachial= 130mmHg. Right posterior tibial artery = >254mmHg. Right dorsalis pedis artery = >254mmHg. Right digit = 92 mmHg. The right posterior tibial artery waveforms are monophasic. The right dorsalis pedis waveforms are monophasic. Indices The right ankle brachial index by the posterior tibial artery is N/C. The right ankle brachial index by the dorsalis pedis is N/C. The right digital-brachial index is 0.68. The left ankle brachial index by the posterior tibial artery is N/C. The left ankle brachial index by the dorsalis pedis is 1.29. The left digital-brachial index is 0.43. VL/Ankle Brachial Index Interpretation Summary Right ERIC unable to be obtained due to non-compressible vessels. Doppler/PVR wa veforms of the right ankle severely diminished. TBI diminished consistent with presence of disease. Left ERIC 1.29, likely artificially elevated due to non-compressible vessels. Do ppler/PVR waveforms of the left ankle severely diminished. TBI diminished consistent with presence of disease. Ordering Physician: Darby Oneill Referring Physician: DARBY ONEILL MD Performed By: Erik Hightower RVT
== END | disposition home or self-care (01) ==
LOC: CVS 13:57
PROVIDERS: PCP Internal Medicine; Visit Provider Internal Medicine
DX: R09.89 Other specified symptoms and signs involving the circulatory and respiratory systems (principal)
CPT/HCPCS: 93922

== ENCOUNTER 2022-11-27 22:08 | Inpatient (IN) | payer MEDICARE, OTHER, SELFPAY ==
[2022-11-27 22:09] VITALS: BP 126/46; PULSE 63; RESP 18; TEMP 37.3; O2SAT 95; BMI 29.1
[2022-11-27 22:15] VITALS: BP 105/66
--- NOTE | 2022-11-27 23:27 | RAD_ITS ---
EXAM: XR CHEST, 1 VIEW CLINICAL INDICATION: Dyspnea and tachypnea TECHNIQUE: Frontal view of the chest. This report was created using [employer] report generation technology. COMPARISON: June 14, 2022 FINDINGS: LUNGS AND PLEURAL SPACES: Vascular congestion. Small pleural effusions bilaterally with adjacent passive atelectasis. No pneumothorax. HEART: Enlarged cardiac silhouette as before which is concerning for cardiomegaly. MEDIASTINUM: Central airways and mediastinal contour are unremarkable. BONES/JOINTS: Degenerative changes of the acromioclavicular joints and spine. SOFT TISSUES: Unremarkable. VASCULATURE: Atherosclerotic calcifications of the nonenlarged thoracic aortic arch. RAD/Chest 1 View (Portable) IMPRESSION: Findings of congestive heart failure with vascular congestion, cardiomegaly, and small pleural effusions present. Electronically Signed: Andrea Fox MD at 0:33 EST ,
--- NOTE | 2022-11-27 23:27 | EKG12_ITS ---
Test Reason : DYSRHYTHMIA Blood Pressure : / mmHG Vent. Rate : 060 BPM Atrial Rate : 250 BPM P-R Int : 000 ms QRS Dur : 190 ms QT Int : 514 ms P-R-T Axes : 000 -70 108 degrees QTc Int : 514 ms Ventricular-paced rhythm Abnormal ECG Confirmed by YELITZA CHAN, CHARO ([id number]), videotape editor MONICA CRYSTAL ([id number]) on 11/29/2022 9:00:26 AM Referred By: PAVEL Confirmed By:JHONATHAN TORRE MD
[2022-11-27 23:58] LABS: Absolute Neutrophil Count 0.9 X10^3/uL (2.0-7.7); Basophil# 0.02 X10^3/uL; Basophil% 0.1 % (0-1); Hematocrit 29.5 % (37-47); Hemoglobin 9.1 g/dL (12.0-15.0); Lymphocyte % 94.6 % (19-41); Mean Corp Hgb Conc 30.8 g/dL (32-36); Mean Corpuscular Hgb 33.6 pg (27.0-32.0); Mean Corpuscular Volume 108.9 fL (81-99); Mean Platelet Vol. 10.8 fl (6.2-12.0); Monocyte% 0.5 % (0-10); NRBC Flagged by Analyzer 0.1 % (0-5); Neutrophil # 0.89 X10^3/uL (2.7-7.7); Neutrophil % 4.7 % (47-70); POSITIVE COUNT YES; POSITIVE DIFFERENTIAL YES; POSITIVE MORPHOLOGY YES; Platelet Count 63 K/mm3 (150-450); RBC Distribution Width CV 17.4 % (11.6-14.6); RBC Distribution Width SD 68.7 fl (35.1-43.9); Red Blood Count 2.71 M/mm3 (4.2-5.4); White Blood Count 18.8 K/mm3 (4.4-11.0)
[2022-11-28] VITALS (11 sets, daily range): BP systolic 68–111; BP diastolic 14–77; PULSE 56–113; RESP 14–19; TEMP 36.1–37.6; O2SAT 89–99; BMI 29.5
[2022-11-28 00:01] LABS: Differential Indicated SCAN CRITERIA MET
[2022-11-28 00:18] LABS: ALB/GLOB Ratio 1.1 RATIO (0.9-2.4); AST(SGOT) 43 U/L (15-37); Alanine Aminotransfer ALT/SGPT 34 U/L (13-56); Albumin, Serum 2.5 g/dL (3.2-5.0); Alkaline Phosphatase 75 U/L (45-117); Anion Gap 9 (5-15); BUN 95 mg/dL (7-18); BUN/Creat Ratio 32.6 RATIO (10-20); Calcium,Total 8.7 mg/dL (8.5-10.1); Chloride 105 mmol/L (98-107); Creatinine, Serum 2.91 mg/dL (0.55-1.02); EST Glomerular Filtration Rate 17 mL/min (>60); Est Glom Filt Rate - Afr Amer 20 mL/min (>60); Estimated Creatinine Clearance 15.24 ml/min; Globulin 2.3 g/dL (2.2-4.2); Glucose 151 mg/dL (74-106); Potassium 3.6 mmol/L (3.5-5.1); Protein, Total 4.8 g/dL (6.4-8.2); Sodium Level 143 mmol/L (136-145)
[2022-11-28 01:05] LABS: Differential Comment SCANNED; Platelet Estimate MOD DEC (ADEQ)
--- NOTE | 2022-11-28 01:08 | EDS_ITS ---
HPI History of Present Illness Chief Complaint: Shortness of Breath Detail of Chief Complaint: Shortness of breath, bilateral lower extremity pain, weakness Informant: patient and family Onset/Context/Timing Onset: Today Context: Sudden Onset Timing: Continuous Quality: Dyspnea, dyspnea on exertion, bilateral LE swelling Location: Respiratory and lower extremity exam Current Severity: Mild Maximum Severity: Moderate Worsened by: Dyspnea with exertion Relieved by: Nothing specific Associated Symptoms Associated Symptoms: Weakness, difficulty ambulating, increased swelling of lower extremities Narrative Narrative: Patient is a 77-year-old woman with history of bilateral lower extremity edema, paroxysmal atrial fibrillation on apixaban, peripheral arterial disease, chronic kidney disease, stage IV, esophageal varices, Eckert, CLL and pacemaker placement. Patient was brought because of increased swelling of her legs. She has discoloration of both lower extremities right greater than left. She has shortness of breath at rest. She has increased shortness of breath with minimal activity. Family states she is unable to use her walker to navigate because of increased weakness. She does endorse orthostatic symptoms. She denies bleeding of her gums. She denies hematuria, dysuria, frequency or urgency. She denies black or maroon-colored stool. Her last dose of apixaban was Friday morning. She takes it once a day because of her chronic kidney disease. Prior similar symptoms: No Recent Illness/Hospitalization: [facility] Medical History OJ (acute kidney injury) CLL (chronic lymphocytic leukemia) Congestive heart failure (CHF) COVID-19 (10/13/20) Encephalopathy acute Enterococcal bacteremia Esophageal varices Febrile illness, acute Fever Kidney disease ECKERT (nonalcoholic steatohepatitis) Nausea Pacemaker Proteinuria Renal insufficiency Shingles (herpes zoster) polyneuropathy Sick sinus syndrome due to SA node dysfunction Home Medications multivitamin with folic acid 400 mcg tablet 1 tab PO DAILY supplement 07/18/14 [History Last Taken 06/30/20] acetaminophen 325 mg tablet 650 mg PO Q6H PRN PRN Pain Score 1-10/Temp > 100.7 F 07/19/20 [Rx Last Taken Unknown] kqdofcf-ylwirgeyhfvds-znnnfhpa 250 mg-250 mg-65 mg tablet (Excedrin Extra Strength) 1 tab PO ONCE 07/15/22 [History Last Taken Unknown] furosemide 80 mg tablet 80 mg PO BID 07/15/22 [History Last Taken Unknown] potassium chloride 20 mEq tablet,extended release 20 meq PO DAILY 07/15/22 [History Last Taken Unknown] metolazone 5 mg tablet 5 mg PO .COMPLEX 08/02/22 [History Last Taken Unknown] metoprolol succinate 50 mg tablet,extended release 24 hr 50 mg PO DAILY #30 tabs 08/05/22 [Rx Last Taken Unknown] ferrous sulfate 143 mg PO DAILY 08/28/22 [History Last Taken Unknown] apixaban 2.5 mg tablet (Eliquis) 2.5 mg PO BID #180 tabs 09/04/22 [Rx Last Taken Unknown] pantoprazole 40 mg tablet,delayed release 40 mg PO DAILY #30 tabs 09/06/22 [Rx Last Taken Unknown] mupirocin 2 % topical ointment 1 applic topical BID #1 BOTTLE 09/24/22 [Rx Last Taken Unknown] ondansetron 4 mg disintegrating tablet 4 mg PO Q8H PRN nausea and vomiting #30 tabs 09/24/22 [Rx Last Taken Unknown] non-adherent bandage 3 X 4 (Telfa) #30 ea 10/07/22 [Rx Last Taken Unknown] non-adherent bandage 3 X 8 #30 ea 10/07/22 [Rx Last Taken Unknown] sertraline 50 mg tablet 75 mg PO QDAY #45 tabs 11/04/22 [Rx Last Taken Unknown] Allergy/AdvReac Type Severity Reaction Status Date / Time losartan AdvReac Severe Severe Verified 11/27/22 22:09 nausea, GI upset, anorexia erythromycin base AdvReac Intermediate Unknown Verified 11/27/22 22:09 [Erythromycin Base] Penicillins AdvReac Mild Rash Verified 11/27/22 22:09 Family History Mother Hypertension Heart disease Father Diabetes Myocardial infarction Brother Parkinson disease Diabetes Surgical History History of cardioversion (03/02/19) History of cholecystectomy History of hysterectomy History of parathyroid surgery Presence of permanent cardiac pacemaker (~07/06/20) Social History household members: family current occupational status: retired current occupation: [employer] sexually active: No Smoking Status: Never smoker Electronic Cigarette Use: not used alcohol intake: never substance use type: does not use caffeine: No what type of physical activity do you participate in: none seatbelt use: always do you feel safe at home: Yes ROS ROS ED Constitutional Constitutional ED: Denies chills, fever(s), subjective, sweats or weight loss Eyes Eyes: Denies blurry vision, change in vision or diplopia ENT ENT ED: Denies ear pain, rhinorrhea or sore throat Cardiovascular Cardiovascular: Denies chest pain, orthopnea, palpitations, paroxysmal nocturnal dyspnea or racing heartbeat Respiratory/Chest Respiratory/Chest: Reports dyspnea and dyspnea on exertion; Denies cough, orthopnea or paroxysmal nocturnal dyspnea Gastrointestinal Gastrointestinal: Denies abdominal pain, diarrhea, melena, nausea or vomiting Genitourinary Genitourinary ED: Denies dysuria, hematuria or urinary frequency Musculoskeletal Musculoskeletal: Reports other Details: Bilateral lower extremity pain and discoloration ; Denies arthralgias, back pain, myalgias or neck pain Integumentary Denies abscess or Abrasions Neurologic Neurologic: Reports weakness; Denies headache(s) or paresthesias Endocrine Endocrinology: Reports cold intolerance and heat intolerance Hematologic/Lymphatic Hematologic/Lymphatic: Reports anemia, easy bleeding and easy bruising EXAM Physical Exam Const Vital Signs: 11/27/22 22:09 11/27/22 22:15 11/27/22 23:27 Temperature 99.2 F H Temperature Source Temporal Pulse Rate 63 Respiratory Rate 18 Respiratory Effort Normal Non-Labored Respiratory Pattern Normal Blood Pressure 126/46 H 105/66 Blood Pressure Mean 72 79 Pulse Ox 95 Oxygen Delivery Method Room Air Positive well nourished and well developed Constitutional Narrative: Patient has acrocyanosis of her lower extremity. She appears pale. She is tachypneic. She is breathing more rapidly than 18 times a minute. General Appearance ED: well developed, cyanotic and pallor; Negative for diaphoretic or NAD HEENT Reports dry mucous membranes HEENT Narrative: Head is atraumatic normocephalic. TMs normal. Nares patent. Uvula midline. No erythema or exudate the posterior pharynx. Mouth ED: Yes dry mucous membranes Mouth: dry mucous membranes Eyes PERRL and EOMs intact bilaterally General Eye ED: Yes pale conjunctiva; Negative for scleral icterus Neck no lymphadenopathy, supple and no JVD Chest Wall inspection of chest normal and palpation of chest normal Resp normal respiratory effort and clear to auscultation bilaterally Cardio no murmurs Rate: tachycardic Rhythm: abnormal rhythm irregularly irregular GI normal to inspection, nondistended, normoactive bowel sounds, non-tender, non- distended and no masses; Negative for hepatosplenomegaly Back/Spine no CVA tenderness Cervical Spine: Negative for cervical spine tenderness Thoracic Spine / Upper Back: Negative for thoracic spinal tenderness Extremity Extremity Narrative: Patient has significant edema of the lower extremities. Is pitting in nature. Patient has bruising. There is 1 area of slight erythema with warmth anterior distal right thigh. There is no lymphangitis. Is no induration. There is no inguinal adenopathy. Patient does have acrocyanosis of her toes. Unable to palpate pulses. Doppler reveals monophasic flow. Family states she had recent lower extremity studies. They believe it was venous. General Extremety ED: Yes edema and tenderness General Extremity: edema Neuro oriented x3, CN's II-XII intact bilaterally and no sensory deficits noted Skin no wounds Skin Narrative: Significant bruising of the lower extremities. Right side is worse than left General Skin Exam: pallor; Negative for jaundice MDM MDM MDM Narrative Medical decision making narrative: Concern patient is anemic due to blood loss in her lower extremities especially since she is on anticoagulant. With slight area erythema noted concern for possible cellulitis. CBC was obtained to assess white count. Suspect there will be elevated because she has history of CLL. We will compare H&H to prior labs. Comprehensive metabolic panel was obtained to assess BUN/creatinine and compare to prior as well as lactate since was concern for possible infection. Liver enzymes were obtained as well to assess for jaundice. Since patient is on apixaban coags were not obtained since they may be normal or elevated and is not helpful. Review of prior records reveals the patient does have peripheral arterial disease that is significant with monophasic flow based on Dr. Rivero's office records authored October 2022. Patient had echo performed May [address] Lexa Desai. The left ventricular systolic function was normal. The estimated ejection fraction was 55%. The left atrium was significantly enlarged. There is no spontaneous contrast in the left atrium. There was no evidence of thrombus in the left atrial appendage. The right atrium was also significantly enlarged. There is mild mitral annular calcification. There is moderately severe eccentric mitral valve insufficiency. There is also moderate tricuspid valve insufficiency. Bubble test was negative for [id number] shunt. Pacemaker was noted. Lab Data Attestation: I reviewed the patient's lab results. Lab results narrative: White count at 1455 was 30,000. White count now is 18.8 thousand. Hemoglobin globin was 11 and is presently 9.1. Patient has predominant lymphocytes consistent with CLL comprehensive metabolic panel of his BUN and creatinine of 95 and 2.91 which is approximately baseline for patient. Estimated GFR is 17. Glucose is elevated 151. Lactate is two-point. Transaminases were unremarkable. Total protein is slightly low Labs: Laboratory Results - last 24 hr 11/27/22 11/27/22 11/27/22 23:50 23:50 23:50 WBC 18.8 H RBC 2.71 L Hgb 9.1 L Hct 29.5 L MCV 108.9 H MCH 33.6 H MCHC 30.8 L RDW Std Deviation 68.7 H RDW Coeff of Jose 17.4 H Plt Count 63 L MPV 10.8 Immature Gran % (Auto) 0.100 Neut % (Auto) 4.7 L Lymph % (Auto) 94.6 H [place] % (Auto) 0.5 Eos % (Auto) 0.0 Baso % (Auto) 0.1 Absolute Neuts (auto) 0.9 L Absolute Lymphs (auto) 17.80 H Nucleated RBC % 0.1 Differential Comment SCANNED Platelet Estimate MOD DEC Sodium 143 Potassium 3.6 Chloride 105 Carbon Dioxide 29.0 Anion Gap 9 BUN 95 H Creatinine 2.91 H Estim Creat Clear Calc 15.24 Est GFR (MDRD) Af Amer 20 L Est GFR (MDRD) Non-Af 17 L BUN/Creatinine Ratio 32.6 H Glucose 151 H Lactic Acid 2.0 Calcium 8.7 Total Bilirubin 1.70 H AST 43 H ALT 34 Alkaline Phosphatase 75 Total Protein 4.8 L Albumin 2.5 L Globulin 2.3 Albumin/Globulin Ratio 1.1 Radiography Chest X-Ray - ED: 1 View and Read by ED Physician (Patient has evidence of cardiomegaly. There is a pacemaker note right subclavian single lead. There is small pleural effusions noted. Difficult to determine if patient has congestive heart failure because of limited inspiratory volume.) Diagnostic Testing: Clinical Impression(s) from Imaging Studies Chest X-Ray 11/27/22 23:27 IMPRESSION: Findings of congestive heart failure with vascular congestion, cardiomegaly, and small pleural effusions present. Electronically Signed: Andrea Fox MD at 0:33 EST , EKG Initial EKG: Interpretation: Paced (Ventricular paced rhythm with a rate of 60. QRS duration 190 ms. QT duration 517 ms. No further interpretation.) Treatment and Re-Evaluation Narrative: Patient and family were told her dyspnea is due to blood loss. She is had a 2 g drop in 8 hours. Suspect the blood loss is into her right and left lower extremity. Recommend admission with serial H&H's and holding anticoagulant. Since radiologist is reading mild CHF and there is significant lymphedema will treat with IV Lasix since patient clinically is fluid overloaded. Because of the 2 g drop over 8 hours patient was typed and screened. Discharge Plan Triage Chief Complaint: Shortness of Breath Other Complaint: Edema ED Provider: Deepak Becerra Dx/Rx/DC Orders Clinical Impression: Acute exacerbation of CHF (congestive heart failure), CLL (chronic lymphocytic leukemia), senior living (current) use of anticoagulants, Pacemaker, Generalized weakness, Debility, Hypertension, Chronic kidney disease, stage 4 (severe), ECKERT (nonalcoholic steatohepatitis), Symptomatic anemia, Signs and symptoms of anemia, Lymphedema of both lower extremities Prescriptions: No Action ferrous sulfate 47.5 mg iron tablet extended release 143 mg PO DAILY pantoprazole 40 mg tablet,delayed release (DR/EC) 40 mg PO DAILY Qty: 30 1RF furosemide 80 mg tablet 80 mg PO BID Excedrin Extra Strength 250-250-65 mg tablet 1 tab PO ONCE potassium chloride 20 mEq tablet extended release 20 meq PO DAILY mupirocin 2 % ointment 1 applic topical BID Qty: 1 0RF ondansetron 4 mg tablet,disintegrating 4 mg PO Q8H PRN (Reason: nausea and vomiting) Qty: 30 1RF (DME) Telfa 3 X 4 bandage See Rx Instructions .Route Qty: 30 0RF Rx Instructions: As directed (DME) non-adherent bandage 3 X 8 bandage See Rx Instructions .Route Qty: 30 0RF Rx Instructions: As directed sertraline 50 mg tablet 75 mg PO QDAY Qty: 45 5RF multivitamin with folic acid 1 TABLET tablet 1 tab PO DAILY acetaminophen 325 MG tablet 650 mg PO Q6H PRN PRN (Reason: Pain Score 1-10/Temp > 100.7 F) 0RF metolazone 5 mg tablet 5 mg PO .COMPLEX Rx Instructions: 5 mg orally daily prn weight gain of 4 lbs or greater; metoprolol succinate 50 mg tablet extended release 24 hr 50 mg PO DAILY Qty: 30 4RF Eliquis 2.5 mg tablet 2.5 mg PO BID Qty: 180 4RF Primary Care Provider: Maritza Oneill Referrals: Maritza Oneill MD [Primary Care Provider] - Disposition Disposition: Acute Care [facility]
[2022-11-28] MEDS: Morphine 4 MG/ML Syringe 3 MG IV (01:20)
--- NOTE | 2022-11-28 01:30 | PCM.HP.STD ---
HPI - General General Date of Admission: 11/28/22 Date of Service: 11/28/22 Chief Complaint: Bilateral leg swelling, new blister formation - noticed more today HPI Narrative ENRICO MEEKS, is a 77 F who presents with the above. Patient has past medical history of CLL,not on treatment, paroxysmal atrial fibrillation, on apixaban, chronic diastolic CHF, liver fibrosis, PAD, CKD stage IV, who comes in with progressive weakness, difficulty ambulating, increased swelling of the lower extremities. History was taken from patient's daughter as patient appeared lethargic from being given morphine. Daughter stated that patient recently has been having blisters of the lower extremities. Her family noticed today that she has small blisters of the lower extremities as well as swelling in her thighs with bruising which is more in the left than right. Patient is on torsemide and metolazone. No complaints of chest pain or dizziness or palpitations. Vitals in ED showed blood pressure 126/46, heart rate 63, respiratory rate 18, temperature 99.2 F, oxygen sat 95% on room air. WBC is 18.8, hemoglobin 9.1, platelet count 63, BMP shows sodium 143, potassium 3.6, chloride 105, carbon 29, BUN 95, creatinine 2.91, total bilirubin is 1.7, AST 15, ALT 34, ALP 75, albumin is 2.5. Chest x-ray shows vascular congestion, cardiomegaly and small pleural effusions. CT scan of the lower extremity shows significant soft tissue edema [facility] Medical History OJ (acute kidney injury) Atrial fibrillation CLL (chronic lymphocytic leukemia) Congestive heart failure (CHF) COVID-19 (10/13/20) Encephalopathy acute Enterococcal bacteremia Esophageal varices Febrile illness, acute Fever GI bleed Kidney disease PERKINS (nonalcoholic steatohepatitis) Nausea Pacemaker Proteinuria Renal insufficiency Shingles (herpes zoster) polyneuropathy Sick sinus syndrome due to SA node dysfunction Home Medications multivitamin with folic acid 400 mcg tablet 1 tab PO DAILY supplement 07/18/14 [History Last Taken 06/30/20] acetaminophen 325 mg tablet 650 mg PO Q6H PRN PRN Pain Score 1-10/Temp > 100.7 F 07/19/20 [Rx Last Taken Unknown] cgitpzn-ebnshbtaabtey-xqityemi 250 mg-250 mg-65 mg tablet (Excedrin Extra Strength) 1 tab PO ONCE PRN Pain 07/15/22 [History Last Taken Unknown] furosemide 80 mg tablet 80 mg PO BID 07/15/22 [History Last Taken Unknown] potassium chloride 20 mEq tablet,extended release 20 meq PO DAILY supplement 07/15/22 [History Last Taken Unknown] metolazone 5 mg tablet 5 mg PO .COMPLEX PRN Weight Gain 08/02/22 [History Last Taken Unknown] pantoprazole 40 mg tablet,delayed release 40 mg PO DAILY #30 tabs 09/06/22 [Rx Last Taken Unknown] mupirocin 2 % topical ointment 1 applic topical BID #1 BOTTLE 09/24/22 [Rx Last Taken Unknown] ondansetron 4 mg disintegrating tablet 4 mg PO Q8H PRN nausea and vomiting #30 tabs 09/24/22 [Rx Last Taken Unknown] non-adherent bandage 3 X 4 (Telfa) #30 ea 10/07/22 [Rx Last Taken Unknown] non-adherent bandage 3 X 8 #30 ea 10/07/22 [Rx Last Taken Unknown] apixaban 2.5 mg tablet (Eliquis) 5 mg PO BID blood thinner 11/28/22 [History Last Taken Unknown] fluticasone propionate 50 mcg/actuation nasal spray,suspension 1 spray intranasal Q12H nose 11/28/22 [History Last Taken Unknown] metoprolol succinate 50 mg tablet,extended release 24 hr 50 mg PO DAILY bp 11/28/22 [History Last Taken Unknown] sertraline 50 mg tablet 75 mg PO QDAY depression 11/28/22 [History Last Taken Unknown] torsemide 20 mg tablet 20 mg PO BID fluid 11/28/22 [History Last Taken Unknown] Allergy/AdvReac Type Severity Reaction Status Date / Time losartan AdvReac Severe Severe Verified 11/27/22 22:09 nausea, GI upset, anorexia erythromycin base AdvReac Intermediate Unknown Verified 11/27/22 22:09 [Erythromycin Base] Penicillins AdvReac Mild Rash Verified 11/27/22 22:09 Family History Mother Hypertension Heart disease Father Diabetes Myocardial infarction Brother Parkinson disease Diabetes Surgical History History of appendectomy History of cardioversion (03/02/19) History of cholecystectomy History of hysterectomy History of parathyroid surgery Presence of permanent cardiac pacemaker (~07/06/20) Social History household members: family current occupational status: retired current occupation: [employer] sexually active: No Smoking Status: Never smoker Electronic Cigarette Use: not used alcohol intake: never substance use type: does not use caffeine: No what type of physical activity do you participate in: none seatbelt use: always do you feel safe at home: Yes ROS ROS Narrative Patient appears lethargic after being given morphine Review of Systems ROS Unobtainable: due to mental condition Vital Signs Vital Signs Vital Signs: 11/27/22 22:09 11/27/22 22:15 11/27/22 23:27 Temperature 99.2 F H Temperature Source Temporal Pulse Rate 63 Respiratory Rate 18 Respiratory Effort Normal Non-Labored Respiratory Pattern Normal Blood Pressure 126/46 H 105/66 Blood Pressure Mean 72 79 Pulse Ox 95 Oxygen Delivery Method Room Air 11/28/22 00:08 Temperature Temperature Source Pulse Rate 56 L Respiratory Rate 15 Respiratory Effort Respiratory Pattern Blood Pressure 102/77 Blood Pressure Mean 85 Pulse Ox 98 Oxygen Delivery Method Room Air Weight Weight: 84.368 kg Body Mass Index (BMI) 29.1 Physical Exam Narrative Physical exam: General: Alert, slightly lethargic, pale, not jaundiced HEENT: Atraumatic Oral: Moist Mucosa Neck: Supple Lungs: Diminished to auscultation Cardiovascular: HS I+II, regular, 3/6 holosystolic murmur heard best at the left lower sternal border and mitral region Abdomen: Bowel Sounds Present, Soft, Non Tender Extremities: Bilateral pedal edema, thighs and pelvic region +3-4, both feet cool to the touch, peripheral cyanosis noted Skin: Multiple blisters over the lower extremities, bruising and swelling of the left lower leg Neurological: Grossly intact Psych/Mental Status: Appropriate Results Lab / Micro Data Result Diagrams: 11/27/22 23:50 11/27/22 23:50 Labs: Laboratory Results - last 24 hr 11/27/22 23:50: WBC 18.8 H, RBC 2.71 L, Hgb 9.1 L, Hct 29.5 L, MCV 108.9 H, MCH 33.6 H, MCHC 30.8 L, RDW Std Deviation 68.7 H, RDW Coeff of Jose 17.4 H, Plt Count 63 L, MPV 10.8, Immature Gran % (Auto) 0.100, Neut % (Auto) 4.7 L, Lymph % (Auto) 94.6 H, [place] % (Auto) 0.5, Eos % (Auto) 0.0, Baso % (Auto) 0.1, Absolute Neuts (auto) 0.9 L, Absolute Lymphs (auto) 17.80 H, Nucleated RBC % 0.1, Differential Comment SCANNED, Platelet Estimate MOD 11/27/22 23:50: Sodium 143, Potassium 3.6, Chloride 105, Carbon Dioxide 29.0, Anion Gap 9, BUN 95 H, Creatinine 2.91 H, Estim Creat Clear Calc 15.24, Est GFR (MDRD) Af Amer 20 L, Est GFR (MDRD) Non-Af 17 L, BUN/Creatinine Ratio 32.6 H, Glucose 151 H, Calcium 8.7, Total Bilirubin 1.70 H, AST 43 H, ALT 34, Alkaline Phosphatase 75, Total Protein 4.8 L, Albumin 2.5 L, Globulin 2.3, Albumin/Globulin Ratio 1.1 11/27/22 23:50: Lactic Acid 2.0 Radiology Impression Chest X-Ray 11/27/22 23:27 IMPRESSION: Findings of congestive heart failure with vascular congestion, cardiomegaly, and small pleural effusions present. Electronically Signed: Andrea Fox MD at 0:33 EST , Assessment & Plan Assessment/Plan (1) Diastolic congestive heart failure: QUALIFIERS: Heart failure chronicity: chronic Qualified Code(s): I50.32 - Chronic diastolic (congestive) heart failure PLAN: Plan 1. Acute exacerbation of heart failure preserved EF, EF 55% Patient presents with significant anasarca, lower extremity venous congestion with blisters formation Review of chart shows that patient's longitudinal CHF management has been restricted by her significant CKD stage IV and persistent hypoalbuminemia She is on oral torsemide and metolazone as needed Will admit to PCU, start on IV Lasix 40 mg twice daily, continue metolazone, CHF protocol We will trend renal function and also urine output Consider switching to Lasix drip if patient does not have significant improvement in anasarca 2. Bilateral lower extremity swelling/bruising likely related to #1 and chronic thrombocytopenia Patient's left lower extremity appears swollen more than right, appears also improved CT of the lower extremity showed extensive subcutaneous edema In the emergency room, there was concern for possible intramuscular hematoma with left leg bruising as there was a drop in hemoglobin However CT of lower extremities shows just extensive subcutaneous edema We will continue to manage as above as CHF exacerbation 3. Anemia, significant drop in hemoglobin from 11.0-9.1 in the same day Initially examining patient in the ED, it was thought that patient probably had left thigh hematoma; this has been ruled out with CT of the extremity Likely hemodilution versus lab error as all 3 cell lines appear to have decreased Repeat lab in the morning pending 4. Severe PAD, chronic limb ischemia, Patient presented with persistent peripheral cyanosis of both feet Patient recently saw Dr. Rivero in the outpatient after doing a lower extremity arterial study Will consult vascular surgery 5. CKD stage IV, patient's family request nephrology follow-up Trend labs especially now with treatment for acute CHF for possibility of OJ. 6. Rest of patient's chronic medical conditions including chronic debility, chronic dysphagia, PERKINS, liver fibrosis, sick sinus syndrome status post pacemaker, CLL complicates patient's overall management, care and recovery. Patient appears very frail. Her overall outlook and prognosis appears guarded. This was expressed to the daughter who stated that they were aware that patient has lots of chronic significant medical conditions. At the very least, palliative care should be considered. 7. DVT PPx- On Eliquis I discussed and explained in details the various types of CODE STATUS-full code, DNR CCA, DNR CC to patient's daughter at the bedside. She stated that patient will be full code as she has had bad experience with her grandmother being made DNR where she did not get care. I reassured her and explained the different types of DNR. She and the family will think about it and let us know what her CODE STATUS will be. Time spent discussing CODE STATUS 20 minutes Charges/Coding Addendum Addendum: Total time spent: 90 minutes of which a good appetite was spent in reviewing patient's chart, laboratory investigations, imaging, talking to emergency physician, taking history and physical examining patient, discussing with her daughter at the bedside, going over plan of care. Visit Charges Inpatient E&M: 04398 Init Hosp L3 Procedures Hospitalists Procedures: 46211 Advncd Care Plan 30 Min
--- NOTE | 2022-11-28 02:22 | CT_ITS ---
EXAM: CT LEFT LOWER EXTREMITY WITHOUT INTRAVENOUS CONTRAST, FEMUR CLINICAL INDICATION: Cellulitis TECHNIQUE: Helically acquired images were obtained of the left femur without intravenous contrast. 2-D reformats were performed by the technologist. CTDIvol = ( 17.62 ) mGy, DLP = ( 1199.16 ) mGycm This CT exam was performed using one or more of the following dose reduction techniques: automated exposure control, adjustment of the mA and/or kV according to patient size, and/or use of iterative reconstruction technique. This report was created using [employer] report Sh[employer] technology. COMPARISON: None. FINDINGS: BONES/JOINTS: Severe end-stage osteoarthrosis involving the left hip. Small amount of suprapatellar joint fluid. Moderate osteoarthrosis of the knee. Small subacromial enthesophyte. No acute or healing fracture or malalignment. No unusual lytic or sclerotic lesions of bone to exclude abscess of osteomyelitis. SOFT TISSUES: Extensive subcutaneous edema throughout the pelvis extremity. No radiopaque foreign body. VASCULATURE: Peripheral vascular disease. OTHER FINDINGS: No organized fluid collections. Small of free fluid in the pelvis. CT/Extremity Lower without Contra IMPRESSION: 1. No organized fluid collections or convincing evidence for abscess. 2. No radiographic evidence for osteomyelitis. MRI is more sensitive if still concerned. 3. Extensive subcutaneous edema is nonspecific. 4. Ancillary findings as above. Electronically Signed: Andrea Fox MD at 3:19 EST ,
[2022-11-28] MEDS: Furosemide 100 MG/10 ML Vial 80 MG IV (02:43)
[2022-11-28 03:54] LABS: Reflex Lactate? Y
[2022-11-28 05:42] LABS: Absolute Lymphocyte Count 19.62 X10^3/uL (0.83-4.51); Absolute Neutrophil Count 0.8 X10^3/uL (2.0-7.7); Basophil# 0.04 X10^3/uL; Basophil% 0.2 % (0-1); Hematocrit 29.3 % (37-47); Lymphocyte # 19.62 X10^3/ul (0.83-4.51); Lymphocyte % 95.5 % (19-41); Mean Corp Hgb Conc 30.7 g/dL (32-36); Mean Corpuscular Hgb 33.3 pg (27.0-32.0); Mean Corpuscular Volume 108.5 fL (81-99); Monocyte# 0.11 X10^3/uL; Monocyte% 0.5 % (0-10); NRBC Flagged by Analyzer 0.1 % (0-5); Neutrophil # 0.77 X10^3/uL (2.7-7.7); Neutrophil % 3.8 % (47-70); POSITIVE COUNT YES; POSITIVE DIFFERENTIAL YES; POSITIVE MORPHOLOGY YES; Platelet Count 58 K/mm3 (150-450); RBC Distribution Width CV 17.4 % (11.6-14.6); RBC Distribution Width SD 68.3 fl (35.1-43.9); White Blood Count 20.5 K/mm3 (4.4-11.0)
[2022-11-28 06:04] LABS: AST(SGOT) 46 U/L (15-37); Alanine Aminotransfer ALT/SGPT 34 U/L (13-56); Albumin, Serum 2.3 g/dL (3.2-5.0); Alkaline Phosphatase 75 U/L (45-117); Anion Gap 10 (5-15); BUN 97 mg/dL (7-18); BUN/Creat Ratio 31.3 RATIO (10-20); Calcium,Total 8.7 mg/dL (8.5-10.1); Chloride 104 mmol/L (98-107); EST Glomerular Filtration Rate 15 mL/min (>60); Est Glom Filt Rate - Afr Amer 19 mL/min (>60); Estimated Creatinine Clearance 13.78 ml/min; Globulin 2.3 g/dL (2.2-4.2); Glucose 115 mg/dL (74-106); Potassium 3.6 mmol/L (3.5-5.1); Protein, Total 4.6 g/dL (6.4-8.2); Sodium Level 143 mmol/L (136-145)
[2022-11-28 06:13] LABS: Anisocytosis 1+; Differential Comment SCANNED; Differential Indicated SCAN CRITERIA MET; Hypochromasia RARE
[2022-11-28 06:14] LABS: Platelet Estimate MOD DEC (ADEQ)
[2022-11-28 06:43] LABS: Lactic Acid 3.1 mmol/L (0.4-1.9)
[2022-11-28] MEDS: Acetaminophen 650 MG/20 ML UDC PO ×2 (06:56→11:46)
[2022-11-28] MEDS: Ensure Plus High Protein 120 ML LIQUID PO (10:39)
[2022-11-28] MEDS: Fluticasone 0.05% 1 SPRAY NASAL.SRY NASAL (10:40)
[2022-11-28] MEDS: APIXABAN 5 MG TABLET PO (10:41)
[2022-11-28] MEDS: Sertraline 50 MG Tablet 75 MG PO (10:44)
--- NOTE | 2022-11-28 10:51 | PCM.CONS.R ---
Assessment & Plan Assessment/Plan (1) Edema: QUALIFIERS: Edema type: localized Qualified Code(s): R60.0 - Localized edema PLAN: This is an unfortunate 77 years old female with a myriad of medical issues comes over with septic presentation. She has significant leukocytosis, low blood pressure, elevated lactic acid level. Naturally her renal function is on the way down due to hemodynamic impact. She also has advanced underlying chronic renal insufficiency with substantial proteinuria. Been in the liver failure contributes to the issues, with hypotension, thrombocytopenia, and maybe even hepatorenal syndrome. (2) OJ (acute kidney injury): PLAN: Unfortunately I do not think she is going to respond to diuretics, and neither it is indicated with hypotension like that. I do believe this woman is terminally ill and her being dialyzed would not change the course or outcome, prognosis is grim. I recommend hospice/palliative consultation as soon as possible HPI Consult Data Date of Consult: 11/28/22 HPI Narrative Reason for Consultation: Acute on chronic kidney injury HPI Narrative: ENRICO MEEKS, is a 77 F with a myriad of medical issues. She came over with severe lower extremity edema with blistering and pain. She has fairly rapidly progressing renal insufficiency. Her creatinine has been on the rise for few years, but really to come off within the last several months. She had multiple admissions with congestive heart failure and fluid overload. She carries diagnoses of CLL that is not being treated. She also has progressive renal insufficiency and under the care of Dr. Rey. She has nephrotic range proteinuria with the most recent protein creatinine ratio 4.8. She also has advanced liver insufficiency, liver cirrhosis, PERKINS. She has hypoalbuminemia, thrombocytopenia, elevated LFTs, slightly elevated bilirubin. Since admission her blood pressure has dropped, now being in the 80s, lactic acid increased from 2-3.2 indicative of tissue hypoperfusion. Her creatinine on admission was 2.65 and with diuretics and low blood pressure it is on the rise every day., She does not have significant respiratory compromise, but she does have anasarca. Her albumin is low [facility] Medical History (Updated 11/28/22 @ 11:[address] Ciarra Blake MD) OJ (acute kidney injury) Atrial fibrillation CLL (chronic lymphocytic leukemia) Congestive heart failure (CHF) COVID-19 (10/13/20) Encephalopathy acute Enterococcal bacteremia Esophageal varices Febrile illness, acute Fever GI bleed Kidney disease PERKINS (nonalcoholic steatohepatitis) Nausea Pacemaker Proteinuria Renal insufficiency Shingles (herpes zoster) polyneuropathy Sick sinus syndrome due to SA node dysfunction Home Medications multivitamin with folic acid 400 mcg tablet 1 tab PO DAILY supplement 07/18/14 [History Last Taken 06/30/20] acetaminophen 325 mg tablet 650 mg PO Q6H PRN PRN Pain Score 1-10/Temp > 100.7 F 07/19/20 [Rx Last Taken Unknown] xgwydsm-dfetqbaiapnmp-efjcyarr 250 mg-250 mg-65 mg tablet (Excedrin Extra Strength) 1 tab PO ONCE PRN Pain 07/15/22 [History Last Taken Unknown] furosemide 80 mg tablet 80 mg PO BID 07/15/22 [History Last Taken Unknown] potassium chloride 20 mEq tablet,extended release 20 meq PO DAILY supplement 07/15/22 [History Last Taken Unknown] metolazone 5 mg tablet 5 mg PO .COMPLEX PRN Weight Gain 08/02/22 [History Last Taken Unknown] pantoprazole 40 mg tablet,delayed release 40 mg PO DAILY #30 tabs 09/06/22 [Rx Last Taken Unknown] mupirocin 2 % topical ointment 1 applic topical BID #1 BOTTLE 09/24/22 [Rx Last Taken Unknown] ondansetron 4 mg disintegrating tablet 4 mg PO Q8H PRN nausea and vomiting #30 tabs 09/24/22 [Rx Last Taken Unknown] non-adherent bandage 3 X 4 (Telfa) #30 ea 10/07/22 [Rx Last Taken Unknown] non-adherent bandage 3 X 8 #30 ea 10/07/22 [Rx Last Taken Unknown] apixaban 2.5 mg tablet (Eliquis) 5 mg PO BID blood thinner 11/28/22 [History Last Taken Unknown] fluticasone propionate 50 mcg/actuation nasal spray,suspension 1 spray intranasal Q12H nose 11/28/22 [History Last Taken Unknown] metoprolol succinate 50 mg tablet,extended release 24 hr 50 mg PO DAILY bp 11/28/22 [History Last Taken Unknown] sertraline 50 mg tablet 75 mg PO QDAY depression 11/28/22 [History Last Taken Unknown] torsemide 20 mg tablet 20 mg PO BID fluid 11/28/22 [History Last Taken Unknown] Allergy/AdvReac Type Severity Reaction Status Date / Time losartan AdvReac Severe Severe Verified 11/27/22 22:09 nausea, GI upset, anorexia erythromycin base AdvReac Intermediate Unknown Verified 11/27/22 22:09 [Erythromycin Base] Penicillins AdvReac Mild Rash Verified 11/27/22 22:09 Family History Mother Hypertension Heart disease Father Diabetes Myocardial infarction Brother Parkinson disease Diabetes Surgical History History of appendectomy History of cardioversion (03/02/19) History of cholecystectomy History of hysterectomy History of parathyroid surgery Presence of permanent cardiac pacemaker (~07/06/20) Social History household members: family current occupational status: retired current occupation: [employer] sexually active: No Smoking Status: Never smoker Electronic Cigarette Use: not used alcohol intake: never substance use type: does not use caffeine: No what type of physical activity do you participate in: none seatbelt use: always do you feel safe at home: Yes ROS Review of Systems ROS Unobtainable: Denies due to encephalopathy, due to endotracheal tube, due to mental condition, due to mental status or other Constitutional Constitutional: Reports malaise, weakness and weight gain Eyes Eyes: Denies blindness, blurry vision, change in vision, discongugate gaze, double vision, dry eyes or loss of vision ENT HEENT: Reports dry mouth Cardiovascular Cardiovascular: Reports edema and leg edema Respiratory/Chest Respiratory/Chest: Reports dyspnea on exertion Gastrointestinal Gastrointestinal: Reports anorexia and nausea Genitourinary Genitourinary: Denies change in urinary stream, difficulty urinating, dribbling, dysuria, flank pain, hematuria, nocturia, oliguria, post void dribbling, urinary frequency, urinary hesitancy, urinary incontinence or urinary urgency Musculoskeletal Musculoskeletal: Denies abnormal gait, arthralgias, joint stiffness, joint swelling, muscle cramps or myalgias Integumentary Integumentary: Denies dry skin, erythema, jaundice, lesions, pruritus, rash or skin ulcer Neurologic Neurologic: Denies abnormal gait, burning sensations, confusion, focal weakness, frequent falls, headache(s), numbness, restless legs, seizures, syncope, tremor(s) or weakness Physical Exam Narrative Skin is mottled, both lower extremities, she is got acrocyanosis, more prominent in her toes. There is a large ecchymotic appearing lesion occupying the whole left thigh. Const alert and oriented x3 Constitutional Narrative: Ill-appearing female, this looks like she is in pain. She is awake and oriented and appropriate. General Appearance: frail HEENT normocephalic HEENT Narrative: Oral mucosa is dry Neck no JVD Resp no use of accessory muscles and clear to auscultation bilaterally Cardio Cardio Narrative: Distant heart tones GI GI Narrative: Thickened anterior abdominal wall edema extending to her armpits, she has bowel sounds Skin General Skin Exam: ecchymosis, mottling and petechiae Neuro Sensorium / Orientation: awake and alert Psych cooperative Lab / Micro Data Attestation: I reviewed the patient's lab results. Result Diagrams: 11/28/22 05:31 11/28/22 05:31 Labs: Laboratory Results - last 24 hr 11/27/22 23:50: WBC 18.8 H, RBC 2.71 L, Hgb 9.1 L, Hct 29.5 L, MCV 108.9 H, MCH 33.6 H, MCHC 30.8 L, RDW Std Deviation 68.7 H, RDW Coeff of Jose 17.4 H, Plt Count 63 L, MPV 10.8, Immature Gran % (Auto) 0.100, Neut % (Auto) 4.7 L, Lymph % (Auto) 94.6 H, [place] % (Auto) 0.5, Eos % (Auto) 0.0, Baso % (Auto) 0.1, Absolute Neuts (auto) 0.9 L, Absolute Lymphs (auto) 17.80 H, Nucleated RBC % 0.1, Differential Comment SCANNED, Platelet Estimate MOD DEC 11/27/22 23:50: Sodium 143, Potassium 3.6, Chloride 105, Carbon Dioxide 29.0, Anion Gap 9, BUN 95 H, Creatinine 2.91 H, Estim Creat Clear Calc 15.24, Est GFR (MDRD) Af Amer 20 L, Est GFR (MDRD) Non-Af 17 L, BUN/Creatinine Ratio 32.6 H, Glucose 151 H, Calcium 8.7, Total Bilirubin 1.70 H, AST 43 H, ALT 34, Alkaline Phosphatase 75, Total Protein 4.8 L, Albumin 2.5 L, Globulin 2.3, Albumin/Globulin Ratio 1.1 11/27/22 23:50: Lactic Acid 2.0 11/28/22 01:32: Blood Type A POSITIVE, Antibody Screen NEGATIVE 11/28/22 05:31: WBC 20.5 H, RBC 2.70 L, Hgb 9.0 L, Hct 29.3 L, MCV 108.5 H, MCH 33.3 H, MCHC 30.7 L, RDW Std Deviation 68.3 H, RDW Coeff of Jose 17.4 H, Plt Count 58 L, MPV 10.0, Immature Gran % (Auto) 0.000, Neut % (Auto) 3.8 L, Lymph % (Auto) 95.5 H, [place] % (Auto) 0.5, Eos % (Auto) 0.0, Baso % (Auto) 0.2, Absolute Neuts (auto) 0.8 L, Absolute Lymphs (auto) 19.62 H, Nucleated RBC % 0.1, Differential Comment SCANNED, Platelet Estimate MOD DEC, Hypochromasia RARE, Anisocytosis 1+ 11/28/22 05:31: Sodium 143, Potassium 3.6, Chloride 104, Carbon Dioxide 29.0, Anion Gap 10, BUN 97 H, Creatinine 3.10 H, Estim Creat Clear Calc 13.78, Est GFR (MDRD) Af Amer 19 L, Est GFR (MDRD) Non-Af 15 L, BUN/Creatinine Ratio 31.3 H, Glucose 115 H, Calcium 8.7, Total Bilirubin 1.80 H, AST 46 H, ALT 34, Alkaline Phosphatase 75, Total Protein 4.6 L, Albumin 2.3 L, Globulin 2.3, Albumin/Globulin Ratio 1.0 11/28/22 05:31: Lactic Acid 3.1 H* Radiology Impression Chest X-Ray 11/27/22 23:27 IMPRESSION: Findings of congestive heart failure with vascular congestion, cardiomegaly, and small pleural effusions present. Electronically Signed: Andrea Fox MD at 0:33 EST , Lower Extremity CT 11/28/22 02:22 IMPRESSION: 1. No organized fluid collections or convincing evidence for abscess. 2. No radiographic evidence for osteomyelitis. MRI is more sensitive if still concerned. 3. Extensive subcutaneous edema is nonspecific. 4. Ancillary findings as above. Electronically Signed: Andrea Fox MD at 3:19 EST ,
[2022-11-28] MEDS: Morphine 2 MG/ML Syringe IV (12:37)
[2022-11-28] MEDS: 0.9% Saline Lock 10 ML Syringe IV ×4 (12:38→20:30)
--- NOTE | 2022-11-28 13:30 | CASEMGMT ---
Patient will receive Hospice care here at [facility] as physician does not feel patient would tolerate transfer. However, should patient improve enough to tolerate transfer to the inpatient unit a referral will be made to Hospice. Joanne SAENZ
--- NOTE | 2022-11-28 14:52 | WOUNDNOTE ---
Pt resting in bed. lots of family present at bedside. according to nursing, patient going with Hospice. will hold off on removing dressings from legs at this time. Does not appear to be an urgent need.
[2022-11-28] MEDS: Morphine 4 MG/ML Syringe IV ×4 (15:02→22:46)
--- NOTE | 2022-11-28 15:51 | PCM.PN.BLA ---
Progress Note Admitted overnight for significant lower extremity edema. She also has renal failure that has been getting worse with diuresis and according to the daughter she has been gaining about a pound a day despite being on her metolazone daily as well as her Lasix. She is oliguric and then has developed some hypotension. I did have a 45-minute discussion on advance care planning with the family about prognosis especially given the fact that her CLL is active again but she is unable to tolerate treatment. Both the patient and her daughter did elect to proceed with hospice and to be made comfort care, at this time given how low her blood pressure is will start IV pain medication as well as antianxiety medication however I do think that her blood pressures are too low to safely transfer to an inpatient hospice unit at this time, we will continue to monitor and make adjustments as necessary. Procedures Hospitalists Procedures: [id number] Advncd Care Plan 30 Min
--- NOTE | 2022-11-28 15:54 | CHAPLAIN ---
Type of Pastoral Visit _x__ Initial Visit ___ Follow-up Visit ___ On-call Visit ___ General Patient Visit ___ Spiritual Assessment ___ Family Conference ___ Bereavement ___ Rapid Response ___ Code Blue ___ Other (describe below) Pastoral Care Referral From ___ Patient ___ Family _x__ Nurse ___ Physician ___ Sewage Plant Attendant ___ Motion Graphics Designer ___ Other (describe below) Sacrament/Intervention _x__ Active listening ___ Anointing ___ Mandaeism ___ Bereavement ___ Communion ___ Nicki exploration ___ ___ Life review _x__ Prayer ___ Reconciliation ___ Sacrament of Sick _x__ Supportive presence ___ Wedding ___ Other (describe below) Pastoral Comments notified by RN and confirmed by chargemaster analyst that patient is nearing end of life and family is gathering; went to introduce self and role of the recruiting manager; pt is awake and does answer questions; pt admits to pain, discomfort and daughter confirms this; daughter acknowledges that pt is active member of a [employer] and that other family members are on the way and their department manager will be called as well; pt agrees to supportive presence and prayer at this time; other family members start to arrive and are offered words of support; will be available as needed for family and patient
--- NOTE | 2022-11-28 17:59 | EX.PCM.CON.S ---
Assessment & Plan Assessment/Plan (1) Acute exacerbation of CHF (congestive heart failure): (2) CLL (chronic lymphocytic leukemia): (3) Chronic kidney disease, stage 4 (severe): (4) Peripheral vascular disease: PLAN: Plan Given decision to pursue hospice care and serious comorbidities with poor overall prognosis, no further imaging or intervention is likely to provide benefit. Continue with comfort care as per primary team. Available as needed, but no further recommendations at this time. HPI Consult Data Date of Consult: 11/28/22 HPI Narrative HPI Narrative: ENRICO MEEKS, is a 77 F who presented to the [facility] ED on 11/27/22 evening with significant edema and SOB and was admitted for heart failure exacerbation. Patient has multiple comorbidities including CKD, CLL (not currently being treated as patient not felt to be able to tolerate treatment), Afib, and PERKINS. We were consulted regarding ecchymotic/mottled appearance of patient's lower legs. Patient had been having recurrent swelling, blisters, and pain on bilateral lower extremities for which she had been evaluated for in our office as an outpatient and for which she had recently completed some vascular testing. Over the last day or so it has also been noted that patient has had increased bruising in her extremities. Since admission, she has continued to decompensate, swelling and dyspnea unresponsive to diuretics, hypotensive, and now oliguric. After evaluation by her primary team and neprohology, hospice was recommended due to patient's globally declining condition. Patient and family did decide to proceed with hospice care. At time of evaluation, patient was alert and oriented with family at bedside. [facility] Medical History (Updated 11/28/22 @ 18:22 by Alyson ZHANG, PA) OJ (acute kidney injury) Atrial fibrillation CLL (chronic lymphocytic leukemia) Congestive heart failure (CHF) COVID-19 (10/13/20) Encephalopathy acute Enterococcal bacteremia Esophageal varices Febrile illness, acute Fever GI bleed Kidney disease PERKINS (nonalcoholic steatohepatitis) Nausea Pacemaker Proteinuria Renal insufficiency Shingles (herpes zoster) polyneuropathy Sick sinus syndrome due to SA node dysfunction Home Medications multivitamin with folic acid 400 mcg tablet 1 tab PO DAILY supplement 07/18/14 [History Last Taken 06/30/20] acetaminophen 325 mg tablet 650 mg PO Q6H PRN PRN Pain Score 1-10/Temp > 100.7 F 07/19/20 [Rx Last Taken Unknown] dswrpqf-urapxcxhpwtwe-amaxozrz 250 mg-250 mg-65 mg tablet (Excedrin Extra Strength) 1 tab PO ONCE PRN Pain 07/15/22 [History Last Taken Unknown] furosemide 80 mg tablet 80 mg PO BID 07/15/22 [History Last Taken Unknown] potassium chloride 20 mEq tablet,extended release 20 meq PO DAILY supplement 07/15/22 [History Last Taken Unknown] metolazone 5 mg tablet 5 mg PO .COMPLEX PRN Weight Gain 08/02/22 [History Last Taken Unknown] pantoprazole 40 mg tablet,delayed release 40 mg PO DAILY #30 tabs 09/06/22 [Rx Last Taken Unknown] mupirocin 2 % topical ointment 1 applic topical BID #1 BOTTLE 09/24/22 [Rx Last Taken Unknown] ondansetron 4 mg disintegrating tablet 4 mg PO Q8H PRN nausea and vomiting #30 tabs 09/24/22 [Rx Last Taken Unknown] non-adherent bandage 3 X 4 (Telfa) #30 ea 10/07/22 [Rx Last Taken Unknown] non-adherent bandage 3 X 8 #30 ea 10/07/22 [Rx Last Taken Unknown] apixaban 2.5 mg tablet (Eliquis) 5 mg PO BID blood thinner 11/28/22 [History Last Taken Unknown] fluticasone propionate 50 mcg/actuation nasal spray,suspension 1 spray intranasal Q12H nose 11/28/22 [History Last Taken Unknown] metoprolol succinate 50 mg tablet,extended release 24 hr 50 mg PO DAILY bp 11/28/22 [History Last Taken Unknown] sertraline 50 mg tablet 75 mg PO QDAY depression 11/28/22 [History Last Taken Unknown] torsemide 20 mg tablet 20 mg PO BID fluid 11/28/22 [History Last Taken Unknown] Allergy/AdvReac Type Severity Reaction Status Date / Time losartan AdvReac Severe Severe Verified 11/27/22 22:09 nausea, GI upset, anorexia erythromycin base AdvReac Intermediate Unknown Verified 11/27/22 22:09 [Erythromycin Base] Penicillins AdvReac Mild Rash Verified 11/27/22 22:09 Family History Mother Hypertension Heart disease Father Diabetes Myocardial infarction Brother Parkinson disease Diabetes Surgical History History of appendectomy History of cardioversion (03/02/19) History of cholecystectomy History of hysterectomy History of parathyroid surgery Presence of permanent cardiac pacemaker (~07/06/20) Social History household members: family current occupational status: retired current occupation: [employer] sexually active: No Smoking Status: Never smoker Electronic Cigarette Use: not used alcohol intake: never substance use type: does not use caffeine: No what type of physical activity do you participate in: none seatbelt use: always do you feel safe at home: Yes Physical Exam Const alert and oriented x3 General Appearance: ill appearing and frail HEENT normocephalic, head/scalp atraumatic, hearing grossly normal bilaterally and external ears normal HEENT Narrative: Oral mucosa is dry Nose: external nose normal Eyes EOMs intact bilaterally General Eye: normal appearance of both eyes Neck no JVD General: normal visual inspection and trachea midline Resp no use of accessory muscles and clear to auscultation bilaterally Effort and Inspection: Negative for stridor or audible wheezes Auscultation: diminished lung sounds Cardio regular rate and regular rhythm Heart Sounds: murmur Extremity Extremity Narrative: Significant bilateral lower extremity edema with mild erythema and multiple bilateral blisters noted. Purple-blue discoloration of bilateral toes. Nonpalpable pulses. Large ecchymosis of left lateral thigh and other scattered echymoses noted. Swelling of bilateral upper extremities with dependent/posterior ecchymoses noted. Skin Skin Narrative: Multiple blisters to bilateral lower legs, scattered ecchymoses. General Skin Exam: ecchymosis Neuro CN's II-XII intact bilaterally, no focal motor deficits and no sensory deficits noted Sensorium / Orientation: awake and alert Psych cooperative Lab / Micro Data Result Diagrams: 11/28/22 05:31 11/28/22 05:31 Labs: Laboratory Results - last 24 hr 11/27/22 23:50: WBC 18.8 H, RBC 2.71 L, Hgb 9.1 L, Hct 29.5 L, MCV 108.9 H, MCH 33.6 H, MCHC 30.8 L, RDW Std Deviation 68.7 H, RDW Coeff of Jose 17.4 H, Plt Count 63 L, MPV 10.8, Immature Gran % (Auto) 0.100, Neut % (Auto) 4.7 L, Lymph % (Auto) 94.6 H, Harnett % (Auto) 0.5, Eos % (Auto) 0.0, Baso % (Auto) 0.1, Absolute Neuts (auto) 0.9 L, Absolute Lymphs (auto) 17.80 H, Nucleated RBC % 0.1, Differential Comment SCANNED, Platelet Estimate MOD DEC 11/27/22 23:50: Sodium 143, Potassium 3.6, Chloride 105, Carbon Dioxide 29.0, Anion Gap 9, BUN 95 H, Creatinine 2.91 H, Estim Creat Clear Calc 15.24, Est GFR (MDRD) Af Amer 20 L, Est GFR (MDRD) Non-Af 17 L, BUN/Creatinine Ratio 32.6 H, Glucose 151 H, Calcium 8.7, Total Bilirubin 1.70 H, AST 43 H, ALT 34, Alkaline Phosphatase 75, Total Protein 4.8 L, Albumin 2.5 L, Globulin 2.3, Albumin/Globulin Ratio 1.1 11/27/22 23:50: Lactic Acid 2.0 11/28/22 01:32: Blood Type A POSITIVE, Antibody Screen NEGATIVE 11/28/22 05:31: WBC 20.5 H, RBC 2.70 L, Hgb 9.0 L, Hct 29.3 L, MCV 108.5 H, MCH 33.3 H, MCHC 30.7 L, RDW Std Deviation 68.3 H, RDW Coeff of Jose 17.4 H, Plt Count 58 L, MPV 10.0, Immature Gran % (Auto) 0.000, Neut % (Auto) 3.8 L, Lymph % (Auto) 95.5 H, Harnett % (Auto) 0.5, Eos % (Auto) 0.0, Baso % (Auto) 0.2, Absolute Neuts (auto) 0.8 L, Absolute Lymphs (auto) 19.62 H, Nucleated RBC % 0.1, Differential Comment SCANNED, Platelet Estimate MOD DEC, Hypochromasia RARE, Anisocytosis 1+ 11/28/22 05:31: Sodium 143, Potassium 3.6, Chloride 104, Carbon Dioxide 29.0, Anion Gap 10, BUN 97 H, Creatinine 3.10 H, Estim Creat Clear Calc 13.78, Est GFR (MDRD) Af Amer 19 L, Est GFR (MDRD) Non-Af 15 L, BUN/Creatinine Ratio 31.3 H, Glucose 115 H, Calcium 8.7, Total Bilirubin 1.80 H, AST 46 H, ALT 34, Alkaline Phosphatase 75, Total Protein 4.6 L, Albumin 2.3 L, Globulin 2.3, Albumin/Globulin Ratio 1.0 11/28/22 05:31: Lactic Acid 3.1 H* Radiology Impression Chest X-Ray 11/27/22 23:27 IMPRESSION: Findings of congestive heart failure with vascular congestion, cardiomegaly, and small pleural effusions present. Electronically Signed: Andrea Fox MD at 0:33 EST , Lower Extremity CT 11/28/22 02:22 IMPRESSION: 1. No organized fluid collections or convincing evidence for abscess. 2. No radiographic evidence for osteomyelitis. MRI is more sensitive if still concerned. 3. Extensive subcutaneous edema is nonspecific. 4. Ancillary findings as above. Electronically Signed: Andrea Fox MD at 3:19 EST , Charges/Coding Visit Charges Inpatient E&M: 53755 Init Hosp L1
[2022-11-29] MEDS: Morphine 4 MG/ML Syringe IV ×2 (00:49→03:23)
[2022-11-29] MEDS: 0.9% Saline Lock 10 ML Syringe IV ×2 (00:49→03:26)
--- NOTE | 2022-11-29 03:53 | NURSING ---
Patient's family called out stated she appears to have passed. Confirmed lack of pulse and not breathing with patients primary nurse Symone Mojica at this time.
--- NOTE | 2022-11-29 05:04 | NURSING ---
Pt at 0353. Family in at bedside at time of passing. Paperwork completed and signed. Post-mortem care provided by this RN and SETTER OUT's. 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
--- NOTE | 2022-11-29 05:15 | NURSING ---
[facility] home here to cigar packer and picker patient at this time
--- NOTE | 2022-11-29 08:09 | PCM.DEATH ---
Preliminary Cause of Preliminary Cause of Preliminary Cause of : Acute on chronic exacerbation of diastolic CHF Acute renal failure on CKD 4 Date of Admission: 11/28/22 Date of : 11/29/22 Principle Diagnosis Problem List: Active and Suspected Problems (Updated 11/28/22 @ 18:22 by Alyson ZHANG, PA) Peripheral vascular disease (Acute) OJ (acute kidney injury) (Acute) Edema (Acute) Generalized weakness (Acute) Debility (Acute) Symptomatic anemia (Acute) Signs and symptoms of anemia (Acute) Lymphedema of both lower extremities (Acute) PERKINS (nonalcoholic steatohepatitis) (Acute) Pacemaker (Acute) Hospital Course Mrs. Limon presented to the hospital with significant volume overload. She had started taking her metolazone every day for the last 5 or 6 days and was still gaining about a pound a day of of water weight. When she presented to the hospital she had progressive worsening in her renal function and then was becoming hypotensive with the diuretics needed to treat her volume overload. There is also some concern for lower extremity ischemia secondary to her chronic peripheral artery disease, it was noted on the admission paperwork that she was cyanotic in her lower extremities. I did discussed with her and her daughter about the fact that we cannot diurese her given how low her blood pressure is and she cannot get dialysis because of how low her blood pressure is and also she has a history of CLL that has reactivated but given her medical conditions did not qualify for treatment. Based on all these findings including pain in her left lower extremity likely due to her peripheral artery disease the decision was made to make her comfortable and proceed with hospice care. She was started on morphine 2 mg IV every 2 hours as needed and increase to 4 mg IV every 2 hours as needed as well as Ativan as needed. She on 11/29/2022 at 0353.
== END 2022-11-29 05:15 | DRG 291 ==
LOC: ED 11-28 01:23 → PCU 11-28 01:40
PROVIDERS: Admitting Provider Internal Medicine; Emergency Provider Emergency Medicine; PCP Internal Medicine; Visit Provider Family Medicine
DX: I13.0 Hypertensive heart and chronic kidney disease with heart failure and stage 1 through stage 4 chronic kidney disease, or unspecified chronic kidney disease (principal); I50.33 Acute on chronic diastolic (congestive) heart failure; N17.9 Acute kidney failure, unspecified; N18.4 Chronic kidney disease, stage 4 (severe); C91.10 Chronic lymphocytic leukemia of B-cell type not having achieved remission; I49.5 Sick sinus syndrome; D69.6 Thrombocytopenia, unspecified; D63.1 Anemia in chronic kidney disease; I73.9 Peripheral vascular disease, unspecified; I48.0 Paroxysmal atrial fibrillation; K74.60 Unspecified cirrhosis of liver; K75.81 Nonalcoholic steatohepatitis (NASH); D50.0 Iron deficiency anemia secondary to blood loss (chronic); E55.9 Vitamin D deficiency, unspecified; I95.1 Orthostatic hypotension; K74.00 Hepatic fibrosis, unspecified; Z66 Do not resuscitate; Z95.0 Presence of cardiac pacemaker; Z79.01 Long term (current) use of anticoagulants; Z79.899 Other long term (current) drug therapy; Z86.16 Personal history of COVID-19
CPT/HCPCS: 36415; 71045; 73700; 80053; 80069; 82306; 82570; 83605; 83970; 84156; 85025; 85027; 86850; 86900; 86901; 93005; 93970; 99285; A4216; J1940

== ENCOUNTER → 2022-11-27 | Outpatient (CLI) | payer MEDICARE, OTHER, SELFPAY ==
--- NOTE | 2022-11-27 12:52 | VDLE_ITS ---
Reason For Study: BLE swelling RIGHT LEFT CFV is compressible, spontaneous, competent CFV is compressible, spontaneous, competent, and demonstrates pulsatile venous flow. and demonstrates pulsatile venous flow. FV is compressible, spontaneous, phasic, FV is compressible, spontaneous, phasic, competent and demonstrates normal competent and demonstrates normal augmentation. augmentation. POP V is compressible, spontaneous, phasic, POP V is compressible, spontaneous, phasic, competent and demonstrates normal competent and demonstrates normal augmentation. augmentation. T/P Trunk is compressible. T/P Trunk is compressible. PTV is compressible. PTV is compressible. RT PerV is compressible. LT PerV is compressible. SFJ is competent and measures 0.75 x 0.72 cm. SFJ is competent and measures 0.40 x 0.29 cm. Unable to visualize GSV from prox thigh to GSV proximal thigh measures 0.50 x 0.60 cm. ankle due to severe pitting edema. Unable to visualize the GSV mid thigh to Unable to visualize SSV due to severe pitting ankle due to severe pitting edema. edema. Unable to visualize SSV due to severe pitting Procedure edema. This is a venous duplex using B-mode, color flow and spectral Doppler. Exam performed in department. The study was technically limited. The study was technically difficult. D/T bilateral leg swelling, unable to evaluate for reflux due to pitting edema. The exam was diagnostic. VL/Venous Duplex US - Cullen Extrem Interpretation Summary Deep veins of the bilateral lower extremities are patent and compressible segme ntally. There is no evidence of bilateral lower extremity deep vein thrombosis. The bilateral great saphenous veins appear patent and compressible segmentally. Negtaive for reflux bilateral Limited study due to edema Ordering Physician: Alyson Moody Referring Physician: Maritza Oneill Performed By: Zoila Davidson, SIMIN, RVT
[2022-11-27 15:46] LABS: Mean Corp Hgb Conc 31.4 g/dL (32-36); Mean Corpuscular Hgb 34.2 pg (27.0-32.0); Mean Corpuscular Volume 108.7 fL (81-99); Mean Platelet Vol. 10.3 fl (6.2-12.0); POSITIVE COUNT YES; POSITIVE MORPHOLOGY YES; Platelet Count 77 K/mm3 (150-450); RBC Distribution Width CV 17.6 % (11.6-14.6); Red Blood Count 3.22 M/mm3 (4.2-5.4)
[2022-11-27 15:52] LABS: Scan Indicated on CBC? Y/N YES- FLAGS NOTED; White Blood Count 30.7 K/mm3 (4.4-11.0)
[2022-11-27 15:53] LABS: PTHIN 184.4 pg/mL (18.4-80.1)
[2022-11-27 15:54] LABS: BUN 96 mg/dL (7-18); BUN/Creat Ratio 36.2 RATIO (10-20); Calcium,Total 9.1 mg/dL (8.5-10.1); Chloride 102 mmol/L (98-107); Creatinine, Serum 2.65 mg/dL (0.55-1.02); EST Glomerular Filtration Rate 18 mL/min (>60); Est Glom Filt Rate - Afr Amer 22 mL/min (>60); Glucose 140 mg/dL (74-106); Phosphorus 3.6 mg/dL (2.5-4.9); Potassium 3.5 mmol/L (3.5-5.1); Sodium Level 143 mmol/L (136-145)
[2022-11-27 15:57] LABS: Protein, Urine (Random) 551.3 mg/dL (<11.9); Protein:Creat Ratio 4836 mg/g CRE (0-200)
[2022-11-27 17:10] LABS: Differential Comment SCANNED
[2022-11-29 09:48] LABS: Pathologist Review Reviewed
== END | disposition home or self-care (01) ==
PROVIDERS: PCP Internal Medicine; Referring Provider Nurse Practitioner Adult Health; Visit Provider Physician Assistant
DX: E55.9 Vitamin D deficiency, unspecified (principal); N18.32 Chronic kidney disease, stage 3b; R80.9 Proteinuria, unspecified; D63.1 Anemia in chronic kidney disease; M79.604 Pain in right leg; M79.605 Pain in left leg; R60.0 Localized edema
CPT/HCPCS: 36415; 80069; 82306; 82570; 83970; 84156; 85027; 93970